=== PATIENT | female | born 1950 | race Caucasian/White ===

== ENCOUNTER → 2018-01-09 07:05 | Outpatient (CLI) | payer BC, SELFPAY ==
[2017-04-29 10:57] VITALS: BMI 37.4
--- NOTE | 2018-01-09 14:21 | PFTCOMP ---
COMPLETE PULMONARY FUNCTION TEST INTERPRETATION Brief HPI: Patient is a 67 year old female, currently under the care of Dr. Dunlap, who presents to [facility] for complete pulmonary function tests secondary to diagnosis of dyspnea on exertion. Respiratory therapist reports good effort and reproducible results. Interpretation: Forced expiration spirometry shows no large airways obstructive ventilatory defect with an FEV1 of 67% predicted. There is no significant bronchodilator response by ATS criteria. Spirograms are of good quality and plateau slowly, indicating slowly emptying areas of the lungs. The respiratory flow volume loop shows decreased expiratory flow rates at high lung volumes consistent with small airways obstruction. Lung volumes by body plethysmography show a decreased total lung capacity at 3.67 L, 72% predicted. All other lung volumes are reduced symmetrically. Diffusion capacity by carbon monoxide is decreased at 62% predicted. The airway resistance is elevated. No previous pulmonary function tests were available for review. Impression: Moderate restrictive ventilatory defect with a symmetric reduction diffusing capacity consistent with possible interstitial lung disease.
== END ==
PROVIDERS: Family Provider Family Medicine; PCP Family Medicine; Visit Provider Internal Medicine Critical Care Medicine
DX: R06.09 Other forms of dyspnea (principal)
CPT/HCPCS: 94060; 94726; 94729

== ENCOUNTER → 2018-01-12 08:58 | Outpatient (CLI) | payer BC, SELFPAY ==
[2017-04-29 10:57] VITALS: BMI 37.4
[2018-01-12 09:20] VITALS: PULSE 101; PULSE 102; PULSE 70; PULSE 72; PULSE 92; PULSE 97; O2SAT 89; O2SAT 90; O2SAT 92; O2SAT 93; O2SAT 94; O2SAT 97
--- NOTE | 2018-01-12 13:21 | WT_ITS ---
PSN 6 Minute Walk Test - 6 Minute Walk Test 6 Minute Walk Test: 6 Minute Walk Test PSN:6-Minute Walk Test Start: 01/12/18 09: 20 Freq: Status: Active Protocol: [id number].6MINW Document 01/12/18 09:20 SMOOTH (Rec: 01/12/18 09:22 SMOOTH [id number]) 6 Minute Walk Test Date Performed 01/12/18 Time Performed 09:00 Height 5 ft 5.5 in Weight: 215 lb Weight in Pounds 215.[address]: Noel Dunlap Assistive device used: None Pre-test Oxygen Delivery Method Room Air Pulse Ox (%) 94 Pulse Rate (60-100 beats/min) 70 Dyspnea Erick Scale (0-10) 0 Exertion Erick Scale (6-20) 6 1st minute Oxygen Delivery Method Room Air Pulse Ox (%) 93 Pulse Rate (60-100 beats/min) 92 2nd minute Oxygen Delivery Method Room Air Pulse Ox (%) 92 Pulse Rate (60-100 beats/min) 92 3rd minute Oxygen Delivery Method Room Air Pulse Ox (%) 90 Pulse Rate (60-100 beats/min) 97 4th minute Oxygen Delivery Method Room Air Pulse Ox (%) 89 Pulse Rate (60-100 beats/min) 101 H 5th minute Oxygen Delivery Method Room Air Pulse Ox (%) 89 Pulse Rate (60-100 beats/min) 101 H 6th minute Oxygen Delivery Method Room Air Pulse Ox (%) 89 Pulse Rate (60-100 beats/min) 102 H Dyspnea Erick Scale (0-10) 3 Exertion Erick Scale (6-20) 13 Post-test Oxygen Delivery Method Room Air Pulse Ox (%) 97 Pulse Rate (60-100 beats/min) 72 Full Laps Walked 21 Partial Lap, Number of Tiles Walked 21 Total Distance Walked (ft) 1260 - Interpretation Interpretation: The patient ambulated 1260 feet over the course of 6 minutes beginning on room air without assistive devices or breaks. Pretesting oxygen saturation was noted to be 94% on room air. With ambulation, the [place] oxygen saturation was 89%. This represents a significant exertional oxygen desaturation. - Recommendations Recommendations: There is no indication for the use of supplemental oxygen at this time. However , close interval follow-up is recommended, given the degree of oxygen desaturation noted during this study.
== END ==
PROVIDERS: Family Provider Family Medicine; PCP Family Medicine; Visit Provider Internal Medicine Critical Care Medicine
DX: R06.09 Other forms of dyspnea (principal)
CPT/HCPCS: 94618

== ENCOUNTER → 2018-02-05 07:53 | Outpatient (CLI) | payer BC, SELFPAY ==
[2017-04-29 10:57] VITALS: BMI 37.4
--- NOTE | 2018-02-05 07:54 | CT_ITS ---
STUDY: CT CHEST WITH CONTRAST REASON FOR EXAM: Female, 68 years old. LUNG DISEASE, DYSPNEA RADIATION DOSAGE (If Supplied By Facility): CTDIvol = ( 15.06 ) mGy, DLP = ( 557.35 ) mGycm TECHNIQUE: Transaxial imaging was performed following intravenous administration of 100 ml of Isovue 300 contrast material. Individualized dose optimization techniques were used for this CT. COMPARISON: None. FINDINGS: Multiple calcified nodules are seen in the left lung lower lobe largest measures approximately 8 mm are consistent with granulomas. There is no demonstrated pleural abnormality. Normal heart and pericardium. Normal mediastinum. Normal hilar regions. Normal enhanced pulmonary arteries. Normal aorta arch and descending thoracic aorta. There are multi-level degenerative changes of the thoracic spine. There is no demonstrated abnormality of the visualized upper abdomen. CT/Chest WITH Contrast IMPRESSION: There is no evidence of pneumonia or neoplasm. There is no evidence of interstitial fibrosis. Electronically Signed: Michelle Valencia MD at 9:53 EDT Tel , Service support ,
[2018-02-05 08:11] LABS: CREATININE FINGERSTICK < 0.6 mg/dL (0.55-1.02); EGFR FINGERSTICK > 60.0000 mL/min (>60)
== END ==
PROVIDERS: Family Provider Family Medicine; PCP Family Medicine; Referring Provider Nurse Practitioner Acute Care; Visit Provider Nurse Practitioner Acute Care
DX: Z01.812 Encounter for preprocedural laboratory examination (principal); J98.4 Other disorders of lung
CPT/HCPCS: 71260; Q9967

== ENCOUNTER 2018-03-31 12:05 | Observation (INO) | payer BC, SELFPAY ==
[2017-04-29 10:57] VITALS: BMI 37.4
[2018-03-31] VITALS (9 sets, daily range): BP systolic 155–171; BP diastolic 53–89; PULSE 61–81; RESP 16–20; TEMP 36.1–37.1; O2SAT 94–99; BMI 36.6; BMI 36.3
--- NOTE | 2018-03-31 12:17 | ED.RN ---
black, tar stools.
[2018-03-31] MEDS: 0.9% Normal Saline 1,000 ML 125 ML IV ×2 (12:35→20:02)
[2018-03-31 12:53] LABS: Absolute Lymphocyte Count 2.65 X10^3/ul (0.83-4.51); Absolute Neutrophil Count 5.2 X10^3/uL (2.0-7.7); Basophil# 0.07 X10^3/uL; Basophil% 0.8 % (0-1); Eosinophil# 0.28 X10^3/uL; Hematocrit 39.9 % (37-47); Hemoglobin 14.2 g/dl (12.0-15.0); Lymphocyte # 2.65 X10^3/ul (4.0); Lymphocyte % 28.8 % (19-41); Mean Corp Hgb Conc 35.6 g/gl (32-36); Mean Corpuscular Hgb 30.1 pg (27.0-32.0); Mean Corpuscular Volume 84.7 fL (81-99); Mean Platelet Vol. 11.6 fl (6.2-12.0); Monocyte# 0.93 X10^3/uL; Monocyte% 10.1 % (0-10); Neutrophil # 5.24 X10^3/uL (2.7-7.7); Neutrophil % 57.1 % (47-70); Platelet Count 189 K/mm3 (150-450); RBC Distribution Width CV 13.2 % (11.6-14.6); RBC Distribution Width SD 40.5 fl (35.1-43.9); Red Blood Count 4.71 M/mm3 (4.2-5.4); White Blood Count 9.2 K/mm3 (4.4-11.0)
[2018-03-31 12:54] LABS: POSITIVE COUNT NO; POSITIVE DIFFERENTIAL NO; POSITIVE MORPHOLOGY NO
[2018-03-31 13:03] LABS: Anion Gap 7 (5-15); BUN 16 mg/dL (7-18); BUN/Creat Ratio 26.7 RATIO (10-20); Chloride 106 mmol/L (98-107); EST Glomerular Filtration Rate 105 mL/min (>60); Est Glom Filt Rate - Afr Amer 127 mL/min (>60); Glucose 185 mg/dL (74-106); Sodium Level 139 mmol/L (136-145)
--- NOTE | 2018-03-31 13:22 | ED.RN ---
LACTIC 2.[address] LAB. DR DEL VALLE AWARE
--- NOTE | 2018-03-31 13:33 | PCM.HP.STD ---
Problem List (1) Restrictive lung disease Status: Chronic (2) Dyspnea on exertion Status: Chronic (3) Encounter for long-term current use of high risk medication Status: Chronic (4) Hypertension Status: Chronic Qualifiers: Hypertension type: essential hypertension Qualified Code(s): I10 - Essential (primary) hypertension (5) Hyperlipidemia Status: Chronic Qualifiers: Hyperlipidemia type: pure hypercholesterolemia Qualified Code(s): E78.00 - Pure hypercholesterolemia, unspecified; E78.0 - Pure hypercholesterolemia (6) Abnormal findings on diagnostic imaging of heart and coronary circulation Status: Chronic (7) Pericardial effusion (noninflammatory) Status: Chronic (8) Nonrheumatic mitral valve insufficiency Status: Chronic (9) Non-rheumatic tricuspid valve insufficiency Status: Chronic (10) Acoustic neuroma Status: Chronic (11) Benign hypertension Status: Chronic (12) Upper GI bleed Status: Acute History of Present Illness Date of Admission: 03/31/18 Chief Complaint: Abdominal pain for 1/2 weeks and melena one time The patient is a 68 year old F with history of diabetes mellitus type 2, hypertension and 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 She has abdominal cramps that is started in epigastrium and was diffuse moved to lower abdomen but was mild in intensity. She denies nausea/vomiting/hematemesis. She denies previous history of GI bleed. She takes baby aspirin. She had EGD and colonoscopy in the past but many years ago and does not remember the details but said it was okay. In ED, occult blood was positive. H&H 14.2/39.9. Platelet count 189,000. K4.0. BUN/creatinine 16/0.6. [] Past Medical History Past Medical History (Chronic Problems): Chronic Problems (Last Reviewed 03/05/18 @ 07:03 by Peyton Jara) Restrictive lung disease (Chronic) Dyspnea on exertion (Chronic) Encounter for long-term current use of high risk medication (Chronic) Hypertension (Chronic) Hyperlipidemia (Chronic) Abnormal findings on diagnostic imaging of heart and coronary circulation (Chronic) Pericardial effusion (noninflammatory) (Chronic) Nonrheumatic mitral valve insufficiency (Chronic) Non-rheumatic tricuspid valve insufficiency (Chronic) Acoustic neuroma (Chronic) Benign hypertension (Chronic) Medical History: Medical History (Last Reviewed 03/05/18 @ 07:03 by Peyton Jara) Dyspnea on exertion (Chronic) R06.09 Encounter for long-term current use of high risk medication (Chronic) Z79.899 Hypertension (Chronic) I10 Hyperlipidemia (Chronic) E78.5 Abnormal findings on diagnostic imaging of heart and coronary circulation (Chronic) R93.1 Pericardial effusion (noninflammatory) (Chronic) I31.3 Nonrheumatic mitral valve insufficiency (Chronic) I34.0 Non-rheumatic tricuspid valve insufficiency (Chronic) I36.1 Acoustic neuroma (Chronic) D33.3 Benign hypertension (Chronic) I10 Dyspnea on exertion R06.09 Hemoptysis R04.2 Skin cancer C44.90 Adjustment disorder with mixed anxiety and depressed mood F43.23 Aortic valve sclerosis I35.8 Bacterial sinusitis J32.9, B96.89 Esophageal reflux K21.9 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 Insomnia G47.00 Obesity E66.9 Primary osteoarthritis of left knee M17.12 Sleep apnea G47.30 Spinal stenosis of lumbar region M48.061 Type 2 diabetes mellitus E11.9 Allergies amlodipine Adverse Reaction (Severe, Verified 03/31/18 12:08) Unknown nickel Adverse Reaction (Severe, Verified 03/31/18 12:08) Unknown lisinopril Adverse Reaction (Mild, Verified 03/31/18 12:08) Other - cough Home Medications: Ambulatory Orders Medication Instructions Recorded armodafinil 250 mg tablet 250 mg PO QDAY tab 09/09/17 aspirin 81 mg tablet,delayed 81 mg PO QDAY 09/09/17 release colestipol 1 gram tablet 1 g PO QDAY tab 09/09/17 fluoxetine 20 mg capsule See Rx Instructions PO QDAY 09/09/17 gabapentin 100 mg capsule 100 mg PO TID cap 09/09/17 hydrochlorothiazide 25 mg tablet 25 mg PO QDAY 09/09/17 losartan 100 mg tablet 100 mg PO QDAY 09/09/17 orphenadrine citrate ER 100 mg 100 mg PO QDAY tab 09/09/17 tablet,extended release trazodone 50 mg tablet 50 mg PO QHS tab 09/09/17 atenolol 50 mg tablet 50 mg PO BID tab 09/12/17 cyclosporine 0.05 % eye drops in a 1 drp OPHTHALMIC Q12H 10/30/17 dropperette metformin 500 mg tablet 500 mg PO BID 10/30/17 naproxen 500 mg tablet 500 mg PO BID PRN 10/30/17 spironolactone 50 mg tablet 25 mg PO QDAY tab 10/30/17 Surgical History: Surgical History (Last Reviewed 03/05/18 @ 07:03 by Peyton Jara) H/O brain surgery Z98.890 acoustic neuroma 09/1998 H/O foot surgery Z98.890 Surgical History: neuroma Smoking Status: Former smoker Tobacco Use: Cigarettes - *Family History Paternal Family History: Family History (Last Reviewed 03/05/18 @ 07:03 by Peyton Jara) Brother CAD (coronary artery disease) Cancer Mother CVA (cerebral vascular accident) Father Alzheimers disease Grandmother Cancer Diabetes History Items: No pertinent history Review of Systems Constitutional: Denies: Chills, Fever, Weight Change HEENT: Reports: Difficulty Hearing - On right ear, chronic from a caustic neuroma. Denies: Head Aches, Sinus Congestion, Sinus Drainage Cardiovascular: Denies: Chest Pain, Palpitations Respiratory: Denies: Cough, Shortness of breath at rest, Sputum production Gastrointestinal: Reports: Abdominal Pain, Melena. Denies: Constipation, Nausea, Vomiting Genitourinary: Denies: Dysuria, Frequency, Hematuria Musculoskeletal: Denies: Joint Pain, Joint Tenderness Skin: Denies: Rash, Wounds Neurological: Reports: Balance problems. Denies: Focal weakness, Numbness, Tingling Psychiatric: Denies: Anxiety, Depression, Homicidal Ideations, Suicidal Ideations Hematologic/ Lymphatic: Denies: Easy Bruising, Easy Bleeding VTE Information - Inpt Only VTE Present on Admission: No VTE Mechan Device Prophylaxis: SCD's Reason prophylaxis not ordered:: Medical Contraindication - Active GI bleed. Patient Problems: Active and Suspected Problems (Last Reviewed 03/05/18 @ 07:03 by Peyton Jara) Upper GI bleed (Acute) - Physical Exam General: Alert, Oriented x3, Cooperative HEENT: Atraumatic, PERRLA, EOMI, Normocephalic, - - Hearing impairment on right ear Neck: Supple, No JVD, Negative Carotid Bruits Lungs: Clear to auscultation, Normal air movement, No rhonchi, No wheeze, No rales Cardiovascular: Regular rate, Regular Rhythm, Normal S1, Normal S2, No murmurs Abdomen: Bowel Sounds Present, Soft, Non Tender, Non-Distended Extremities: Capillary Refill Less than 3 Seconds, Edema Skin: No rashes, No breakdown Musculoskeletal: No Tenderness to Palpation of Joints or Extremities, Arthritic Changes Neurological: Cranial nerves II-XII grossly intact, Deep Tendon Reflexes 2+/4 and Symmetrical, Neuro grossly intact, Motor Exam 5/5 strength throughout Psych/Mental Status: Normal Affect, Appropriate Vital Signs Temp Pulse Resp BP Pulse Ox 96.9 F L 66 16 171/67 H 99 03/31/18 12:06 03/31/18 12:38 03/31/18 12:06 03/31/18 12:38 03/31/18 12:06 Weight: 220 lb Body Mass Index (BMI) 36.6 Microbiology Past 72 Hours 03/31/18 12:25 Stool Occult Blood (HOWARD) - Final Stool Occult Blood Positive Laboratory Tests Past 24 Hrs 03/31/18 03/31/18 03/31/18 12:30 12:30 12:30 WBC 9.2 RBC 4.71 Hgb 14.2 Hct 39.9 MCV 84.7 MCH 30.1 MCHC 35.6 RDW 13.2 RDW Differential 40.5 Plt Count 189 MPV 11.6 Immature Gran % (Auto) 0.200 Neut % (Auto) 57.1 Lymph % (Auto) 28.8 [place] % (Auto) 10.1 H Eos % (Auto) 3.0 Baso % (Auto) 0.8 Absolute Neuts (auto) 5.2 Absolute Lymphs (auto) 2.65 Total Counted Not Reportable Sodium 139 Potassium 4.0 Chloride 106 Carbon Dioxide 26.0 Anion Gap 7 BUN 16 Creatinine 0.60 Estim Creat Clear Calc 47.10 Est GFR (MDRD) Af Amer 127 Est GFR (MDRD) Non-Af 105 BUN/Creatinine Ratio 26.7 H Glucose 185 H Lactic Acid 2.0 Calcium 9.0 Blood Type Antibody Screen 03/31/18 12:30 WBC RBC Hgb Hct MCV MCH MCHC RDW RDW Differential Plt Count MPV Immature Gran % (Auto) Neut % (Auto) Lymph % (Auto) [place] % (Auto) Eos % (Auto) Baso % (Auto) Absolute Neuts (auto) Absolute Lymphs (auto) Total Counted Sodium Potassium Chloride Carbon Dioxide Anion Gap BUN Creatinine Estim Creat Clear Calc Est GFR (MDRD) Af Amer Est GFR (MDRD) Non-Af BUN/Creatinine Ratio Glucose Lactic Acid Calcium Blood Type O POSITIVE Antibody Screen NEGATIVE Assessment/Plan All Active Problems (Last Reviewed 03/05/18 @ 07:03 by Peyton Jara) Upper GI bleed (Acute) The patient is a 68 year old F with history of diabetes mellitus type 2, hypertension and 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 She has abdominal cramps that is started in epigastrium and was diffuse moved to lower abdomen but was mild in intensity. She denies nausea/vomiting/hematemesis. She denies previous history of GI bleed. She takes baby aspirin and on naproxen and orphenadrine. She had EGD and colonoscopy in the past but many years ago and does not remember the details but said it was okay. In ED, occult blood was positive. H&H 14.2/39.9. Platelet count 189,000. K4.0. BUN/creatinine 16/0.6. 1. Upper GI bleed, exact etiology unclear but possible from aspirin/NSAID/PUD: The patient is being admitted to PCU on traffic monitor specialist. IV fluid normal saline. On Protonix drip. H&H monitoring every 6 hourly. Clear liquid diet. Discussed with surgeon, Dr. Miller and he agreed to do EGD. Currently, patient is hemodynamically stable. Lactic acid 2.0. BP 165/77. Orthostatic vitals are negative. Previous H&H in November 2016 13.5/38.6. Group and crossmatch done. If hemoglobin drops less than 8 g%, transfuse 2 units of PRBCs. Hold diuretics spironolactone and HCTZ. 2. Hypertension, dyslipidemia: Home medication continued. Hold antihypertensive medication if systolic blood pressure less than 140 mmHg. Dose of losartan is decreased. 3. Restrictive lung disease. Obstructive sleep apnea on CPAP: Continue home settings of CPAP. 4. Acoustic neuroma: Continue gabapentin. Hold armodafinil, dose of orphenadrine decreased. 5. Diabetes mellitus type 2: On Accu-Chek before meals and at bedtime and cover with Humalog sliding scale. Glucose and BMP 185. A1c tomorrow a.m. DVT prophylaxis: Bilateral SCDs. Pharmacological prophylaxis is contraindicated. Home medication reconciliation done. Microbiology Past 72 Hours 03/31/18 12:25 Stool Stool Occult Blood (HOWARD) - Final Occult Blood Positive Laboratory Results 03/31/18 12:30: WBC 9.2, RBC 4.71, Hgb 14.2, Hct 39.9, MCV 84.7, MCH 30.1, MCHC 35.6, RDW 13.2, RDW Differential 40.5, Plt Count 189, MPV 11.6, Immature Gran % (Auto) 0.200, Neut % (Auto) 57.1, Lymph % (Auto) 28.8, [place] % (Auto) 10.1 H, Eos % (Auto) 3.0, Baso % (Auto) 0.8, Absolute Neuts (auto) 5.2, Absolute Lymphs (auto) 2.65, Total Counted Not Reportable 03/31/18 12:30: Sodium 139, Potassium 4.0, Chloride 106, Carbon Dioxide 26.0, Anion Gap 7, BUN 16, Creatinine 0.60, Estim Creat Clear Calc 47.10, Est GFR (MDRD) Af Amer 127, Est GFR (MDRD) Non-Af 105, BUN/Creatinine Ratio 26.7 H, Glucose 185 H, Calcium 9.0 03/31/18 12:30: Lactic Acid 2.0 03/31/18 12:30: Blood Type O POSITIVE, Antibody Screen NEGATIVE Code Visit Inpatient E&M: 30209 Init Hosp L3
--- NOTE | 2018-03-31 13:38 | ED.VISSUMM ---
- ER Visit Summary Date of Service: 03/31/18 Chief Complaint: [Black stool] History of Present Illness: The patient is a 68 F [presents to the emergency department with complaint of black stool that she noticed this morning. Patient states that she is had intermittent abdominal discomfort for the last week and a half. Patient also feeling fatigued and lacks energy. Patient states that she has been expensing upper abdominal discomfort intermittently typically after eating. Patient does have a history of gastroesophageal reflux disease and normally sleeps with the head of the bed elevated. Patient does not take any medication for reflux. Patient has had prior EGD but it was many years ago she cannot remember how many years ago. Patient is not on any blood thinners. Patient denies any fevers. She has not taken any Pepto-Bismol. She does not take iron.] Physical Examination: [HEENT-PERRLA, EOMI. Cranial nerves II through XII grossly intact. TMs clear. Mucous membranes moist. No adenopathy. Cardiovascular-regular rate and rhythm without murmur or ectopy Lungs-clear to auscultation, chest wall stable without crepitus or subcu emphysema Abdomen-normoactive bowel sounds, soft, nontender, no rebound or rigidity, no peritoneal signs. Rectal exam-no external lesions noted. No masses palpated in the rectal vault. There was blackish stool noted on exam that was Hemoccult positive Extremities-intact ?4, normal range of motion, normal pulses, atraumatic] Test Results: [Static vital signs were negative. CBC with differential obtained on arrival showed a white blood cell count of 9.2, hemoglobin 14, hematocrit 40, platelets 189. Chemistries unremarkable. BUN was 16 and creatinine 0.60. Lactate was 2.0.] Emergency Department Course and Treatment: [Patient was started on a Protonix drip.] Treatment Plan: [Admit] Disposition: [Admit] Impression: [Upper GI bleed] This note was generated with [employer] dictation software. It may contain incorrect words, spelling, and punctuation that were not noted in review of the chart prior to signing ED Disposition - Plan for ED Patient: Chief Complaint: GI Bleed Referrals: Rhett Reece MD [Primary Care Provider] -
--- NOTE | 2018-03-31 13:41 | ED.DCSUM_ITS ---
- ER Visit Summary Date of Service: 03/31/18 Chief Complaint: [Black stool] History of Present Illness: The patient is a 68 F [presents to the emergency department with complaint of black stool that she noticed this morning. Patient states that she is had intermittent abdominal discomfort for the last week and a half. Patient also feeling fatigued and lacks energy. Patient states that she has been expensing upper abdominal discomfort intermittently typically after eating. Patient does have a history of gastroesophageal reflux disease and normally sleeps with the head of the bed elevated. Patient does not take any medication for reflux. Patient has had prior EGD but it was many years ago she cannot remember how many years ago. Patient is not on any blood thinners. Patient denies any fevers. She has not taken any Pepto-Bismol. She does not take iron.] Physical Examination: [HEENT-PERRLA, EOMI. Cranial nerves II through XII grossly intact. TMs clear. Mucous membranes moist. No adenopathy. Cardiovascular-regular rate and rhythm without murmur or ectopy Lungs-clear to auscultation, chest wall stable without crepitus or subcu emphysema Abdomen-normoactive bowel sounds, soft, nontender, no rebound or rigidity, no peritoneal signs. Rectal exam-no external lesions noted. No masses palpated in the rectal vault. There was blackish stool noted on exam that was Hemoccult positive Extremities-intact ?4, normal range of motion, normal pulses, atraumatic] Test Results: [Static vital signs were negative. CBC with differential obtained on arrival showed a white blood cell count of 9.2, hemoglobin 14, hematocrit 40, platelets 189. Chemistries unremarkable. BUN was 16 and creatinine 0.60. Lactate was 2.0.] Emergency Department Course and Treatment: [Patient was started on a Protonix dr ip.] Treatment Plan: [Admit] Disposition: [Admit] Impression: [Upper GI bleed] This note was generated with [employer] dictation software. It may contain incorrect words, spelling, and punctuation that were not noted in review of the chart prior to signing ED Disposition - Plan for ED Patient: Chief Complaint: GI Bleed Referrals: Rhett Reece MD [Primary Care Provider] -
--- NOTE | 2018-03-31 15:15 | PCM.CONS.GEN ---
Problem List (1) Upper GI bleed Status: Acute Reason for Consult Date of Consultation: 03/31/18 Reason for Consultation: Upper GI bleed. Melena. History of Present Illness: The patient is a 68 year old F who presents with a 1 1/2 week history of cramping/burning upper and lower abdominal pain. She noted her stool has been loose cow syed and then she had a large melanotic stool today. Patient notes a history of irritable bowel syndrome. She notes she controls her symptoms through diet and does not take any medications. She denies family history of colon cancer. She denies nausea, vomiting, fatigue, shortness of breath. She notes taking Naproxen at least daily for approximately 10 years for fibromyalgia. Patient notes her last colonoscopy and EGD was with Dr. Cummings approximately 4-5 years ago. She denies having any colon polyps. Patient notes she was following with a slot host for shortness of breath and fatigue. She denies history of CHF, myocardial infarction, stroke and blood clots. Patient denies previous abdominal surgeries. Patient is maintained on a daily aspirin. Fecal occult blood test was positive. Past Medical History Past Medical History (Chronic Problems): Chronic Problems (Last Reviewed 03/05/18 @ 07:03 by Peyton Jara) Restrictive lung disease (Chronic) Dyspnea on exertion (Chronic) Encounter for long-term current use of high risk medication (Chronic) Hypertension (Chronic) Hyperlipidemia (Chronic) Abnormal findings on diagnostic imaging of heart and coronary circulation (Chronic) Pericardial effusion (noninflammatory) (Chronic) Nonrheumatic mitral valve insufficiency (Chronic) Non-rheumatic tricuspid valve insufficiency (Chronic) Acoustic neuroma (Chronic) Benign hypertension (Chronic) Medical History: Medical History (Last Reviewed 03/05/18 @ 07:03 by Peyton Jara) Dyspnea on exertion (Chronic) R06.09 Encounter for long-term current use of high risk medication (Chronic) Z79.899 Hypertension (Chronic) I10 Hyperlipidemia (Chronic) E78.5 Abnormal findings on diagnostic imaging of heart and coronary circulation (Chronic) R93.1 Pericardial effusion (noninflammatory) (Chronic) I31.3 Nonrheumatic mitral valve insufficiency (Chronic) I34.0 Non-rheumatic tricuspid valve insufficiency (Chronic) I36.1 Acoustic neuroma (Chronic) D33.3 Benign hypertension (Chronic) I10 Dyspnea on exertion R06.09 Hemoptysis R04.2 Skin cancer C44.90 Adjustment disorder with mixed anxiety and depressed mood F43.23 Aortic valve sclerosis I35.8 Bacterial sinusitis J32.9, B96.89 Esophageal reflux K21.9 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 Insomnia G47.00 Obesity E66.9 Primary osteoarthritis of left knee M17.12 Sleep apnea G47.30 Spinal stenosis of lumbar region M48.061 Type 2 diabetes mellitus E11.9 Allergies amlodipine Adverse Reaction (Severe, Verified 03/31/18 12:08) Unknown nickel Adverse Reaction (Severe, Verified 03/31/18 12:08) Unknown lisinopril Adverse Reaction (Mild, Verified 03/31/18 12:08) Other - cough Home Medications: Ambulatory Orders Medication Instructions Recorded armodafinil 250 mg tablet 250 mg PO DAILY PRN tab 09/09/17 aspirin 81 mg tablet,delayed 81 mg PO DAILY 09/09/17 release colestipol 1 gram tablet 1 g PO DAILY tab 09/09/17 fluoxetine 20 mg capsule 80 mg PO QHS 09/09/17 gabapentin 100 mg capsule 100 mg PO TID cap 09/09/17 hydrochlorothiazide 25 mg tablet 25 mg PO DAILY 09/09/17 losartan 100 mg tablet 100 mg PO DAILY 09/09/17 orphenadrine citrate ER 100 mg 100 mg PO QDAY PRN tab 09/09/17 tablet,extended release trazodone 50 mg tablet 50 mg PO QHS tab 09/09/17 atenolol 50 mg tablet 50 mg PO BID tab 09/12/17 cyclosporine 0.05 % eye drops in a 1 drp OPHTHALMIC Q12H PRN 10/30/17 dropperette metformin 500 mg tablet 500 mg PO BIDCM 10/30/17 naproxen 500 mg tablet 500 mg PO BIDCM PRN 10/30/17 spironolactone 50 mg tablet 25 mg PO DAILY tab 10/30/17 Multivitamins,Therapeutic 1 tablet PO DAILY 03/31/18 [Multivitamin] Penciclovir [Denavir] 1 applicatio TP BID PRN 03/31/18 Surgical History: Surgical History (Last Reviewed 03/05/18 @ 07:03 by Peyton Jara) H/O brain surgery Z98.890 acoustic neuroma 09/1998 H/O foot surgery Z98.890 Surgical History: no surgical history Psychiatric History: No pertinent psych hx 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 Lives: Alone Smoking Status: Former smoker Tobacco Use: Cigarettes - *Family History Paternal Family History: Family History (Last Reviewed 03/05/18 @ 07:03 by Peyton Jara) Brother CAD (coronary artery disease) Cancer Mother CVA (cerebral vascular accident) Father Alzheimers disease Grandmother Cancer Diabetes History Items: No pertinent history Review of Systems Constitutional: Denies: Weight Change HEENT: Denies: Head Aches, Sinus Congestion, Sinus Drainage Cardiovascular: Denies: Chest Pain, Palpitations Respiratory: Denies: Cough, Shortness of breath at rest, Sputum production Gastrointestinal: Reports: Abdominal Pain, Melena. Denies: Nausea, Vomiting Genitourinary: Denies: Dysuria Musculoskeletal: Denies: Joint Pain, Joint Tenderness Skin: Denies: Rash, Wounds Neurological: Denies: Numbness, Tingling, Focal weakness Psychiatric: Denies: Anxiety, Depression, Homicidal Ideations, Suicidal Ideations Hematologic/ Lymphatic: Denies: Easy Bruising, Easy Bleeding Patient Problems: Active and Suspected Problems (Last Reviewed 03/05/18 @ 07:03 by Peyton Jara) Upper GI bleed (Acute) - Physical Exam General: Alert, Oriented x3, Cooperative HEENT: Atraumatic, PERRLA, EOMI, Normocephalic Neck: Supple, No JVD, Negative Carotid Bruits Lungs: Clear to auscultation, Normal air movement Cardiovascular: Regular rate, No murmurs Abdomen: Soft, Non Tender, Distended, Obese Extremities: No edema, Capillary Refill Less than 3 Seconds Skin: No rashes, No breakdown Musculoskeletal: No Tenderness to Palpation of Joints or Extremities Neurological: Neuro grossly intact Psych/Mental Status: Normal Affect, Appropriate Vital Signs Temp Pulse Resp BP Pulse Ox 96.9 F L 74 18 155/69 H 99 03/31/18 12:06 03/31/18 14:29 03/31/18 14:29 03/31/18 14:29 03/31/18 14:29 Weight: 220 lb Body Mass Index (BMI) 36.6 Microbiology Past 72 Hours 03/31/18 12:25 Stool Occult Blood (HOWARD) - Final Stool Occult Blood Positive Laboratory Tests Past 24 Hrs 03/31/18 03/31/18 03/31/18 12:30 12:30 12:30 WBC 9.2 RBC 4.71 Hgb 14.2 Hct 39.9 MCV 84.7 MCH 30.1 MCHC 35.6 RDW 13.2 RDW Differential 40.5 Plt Count 189 MPV 11.6 Immature Gran % (Auto) 0.200 Neut % (Auto) 57.1 Lymph % (Auto) 28.8 [place] % (Auto) 10.1 H Eos % (Auto) 3.0 Baso % (Auto) 0.8 Absolute Neuts (auto) 5.2 Absolute Lymphs (auto) 2.65 Total Counted Not Reportable Sodium 139 Potassium 4.0 Chloride 106 Carbon Dioxide 26.0 Anion Gap 7 BUN 16 Creatinine 0.60 Estim Creat Clear Calc 47.10 Est GFR (MDRD) Af Amer 127 Est GFR (MDRD) Non-Af 105 BUN/Creatinine Ratio 26.7 H Glucose 185 H Lactic Acid 2.0 Calcium 9.0 Blood Type Antibody Screen 03/31/18 12:30 WBC RBC Hgb Hct MCV MCH MCHC RDW RDW Differential Plt Count MPV Immature Gran % (Auto) Neut % (Auto) Lymph % (Auto) [place] % (Auto) Eos % (Auto) Baso % (Auto) Absolute Neuts (auto) Absolute Lymphs (auto) Total Counted Sodium Potassium Chloride Carbon Dioxide Anion Gap BUN Creatinine Estim Creat Clear Calc Est GFR (MDRD) Af Amer Est GFR (MDRD) Non-Af BUN/Creatinine Ratio Glucose Lactic Acid Calcium Blood Type O POSITIVE Antibody Screen NEGATIVE Assessment/Plan All Active Problems (Last Reviewed 03/05/18 @ 07:03 by Peyton Jara) Upper GI bleed (Acute) I have been consulted in conjunction with Dr. Sanchez. Impression: Melena. Fecal occult positive. Abdominal pain. Plan: Patient was discussed with Dr. Miller. Dr. Miller will plan to perform an upper endoscopy with MAC tomorrow. Procedure details, risks and benefits have been explained to the patient and her daughter. Patient has had the opportunity to ask and have questions answered. NPO at midnight. Thank you for allowing us to participate in this patient's care. My recommendations will be available via electronic medical records. Code Visit Office Visits / Consults: [id number] IP Consult L3
--- NOTE | 2018-03-31 15:26 | CON.PCM_ITS ---
Problem List (1) Upper GI bleed Status: Acute Reason for Consult Date of Consultation: 03/31/18 Reason for Consultation: Upper GI bleed. Melena. History of Present Illness: The patient is a 68 year old F who presents with a 1 1/2 week history of cramping/burning upper and lower abdominal pain. She noted her stool has been loose cow syed and then she had a large melanotic stool today. Patient notes a history of irritable bowel syndrome. She notes she controls her symptoms through diet and does not take any medications. She denies family history of colon cancer. She denies nausea, vomiting, fatigue, shortness of breath. She notes taking Naproxen at least daily for approximately 10 years for fibromyalgia. Patient notes her last colonoscopy and EGD was with Dr. Cummings approximately 4-5 years ago. She denies having any colon polyps. Patient notes she was following with a strainer cleaner for shortness of breath and fatigue. She denies history of CHF, myocardial infarction, stroke and blood clots. Patient denies previous a bdominal surgeries. Patient is maintained on a daily aspirin. Fecal occult blood test was positive. Past Medical History Past Medical History (Chronic Problems): Chronic Problems (Last Reviewed 03/05/18 @ 07:03 by Peyton Jara) Restrictive lung disease (Chronic) Dyspnea on exertion (Chronic) Encounter for long-term current use of high risk medication (Chronic) Hypertension (Chronic) Hyperlipidemia (Chronic) Abnormal findings on diagnostic imaging of heart and coronary circulation (Chronic) Pericardial effusion (noninflammatory) (Chronic) Nonrheumatic mitral valve insufficiency (Chronic) Non-rheumatic tricuspid valve insufficiency (Chronic) Acoustic neuroma (Chronic) Benign hypertension (Chronic) Medical History: Medical History (Last Reviewed 03/05/18 @ 07:03 by Peyton Jara) Dyspnea on exertion (Chronic) R06.09 Encounter for long-term current use of high risk medication (Chronic) Z79.899 Hypertension (Chronic) I10 Hyperlipidemia (Chronic) E78.5 Abnormal findings on diagnostic imaging of heart and coronary circulation (Chronic) R93.1 Pericardial effusion (noninflammatory) (Chronic) I31.3 Nonrheumatic mitral valve insufficiency (Chronic) I34.0 Non-rheumatic tricuspid valve insufficiency (Chronic) I36.1 Acoustic neuroma (Chronic) D33.3 Benign hypertension (Chronic) I10 Dyspnea on exertion R06.09 Hemoptysis R04.2 Skin cancer C44.90 Adjustment disorder with mixed anxiety and depressed mood F43.23 Aortic valve sclerosis I35.8 Bacterial sinusitis J32.9, B96.89 Esophageal reflux K21.9 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 Insomnia G47.00 Obesity E66.9 Primary osteoarthritis of left knee M17.12 Sleep apnea G47.30 Spinal stenosis of lumbar region M48.061 Type 2 diabetes mellitus E11.9 Allergies amlodipine Adverse Reaction (Severe, Verified 03/31/18 12:08) Unknown nickel Adverse Reaction (Severe, Verified 03/31/18 12:08) Unknown lisinopril Adverse Reaction (Mild, Verified 03/31/18 12:08) Other - cough Home Medications: Ambulatory Orders Medication Instructions Recorded armodafinil 250 mg tablet 250 mg PO DAILY PRN tab 09/09/17 aspirin 81 mg tablet,delayed 81 mg PO DAILY 09/09/17 release colestipol 1 gram tablet 1 g PO DAILY tab 09/09/17 fluoxetine 20 mg capsule 80 mg PO QHS 09/09/17 gabapentin 100 mg capsule 100 mg PO TID cap 09/09/17 hydrochlorothiazide 25 mg tablet 25 mg PO DAILY 09/09/17 losartan 100 mg tablet 100 mg PO DAILY 09/09/17 orphenadrine citrate ER 100 mg 100 mg PO QDAY PRN tab 09/09/17 tablet,extended release trazodone 50 mg tablet 50 mg PO QHS tab 09/09/17 atenolol 50 mg tablet 50 mg PO BID tab 09/12/17 cyclosporine 0.05 % eye drops in a 1 drp OPHTHALMIC Q12H PRN 10/30/17 dropperette metformin 500 mg tablet 500 mg PO BIDCM 10/30/17 naproxen 500 mg tablet 500 mg PO BIDCM PRN 10/30/17 spironolactone 50 mg tablet 25 mg PO DAILY tab 10/30/17 Multivitamins,Therapeutic 1 tablet PO DAILY 03/31/18 [Multivitamin] Penciclovir [Denavir] 1 applicatio TP BID PRN 03/31/18 Surgical History: Surgical History (Last Reviewed 03/05/18 @ 07:03 by Peyton Jara) H/O brain surgery Z98.890 acoustic neuroma 09/1998 H/O foot surgery Z98.890 Surgical History: no surgical history Psychiatric History: No pertinent psych hx 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 Lives: Alone Smoking Status: Former smoker Tobacco Use: Cigarettes - *Family History Paternal Family History: Family History (Last Reviewed 03/05/18 @ 07:03 by Peyton Jara) Brother CAD (coronary artery disease) Cancer Mother CVA (cerebral vascular accident) Father Alzheimers disease Grandmother Cancer Diabetes History Items: No pertinent history Review of Systems Constitutional: Denies: Weight Change HEENT: Denies: Head Aches, Sinus Congestion, Sinus Drainage Cardiovascular: Denies: Chest Pain, Palpitations Respiratory: Denies: Cough, Shortness of breath at rest, Sputum production Gastrointestinal: Reports: Abdominal Pain, Melena. Denies: Nausea, Vomiting Genitourinary: Denies: Dysuria Musculoskeletal: Denies: Joint Pain, Joint Tenderness Skin: Denies: Rash, Wounds Neurological: Denies: Numbness, Tingling, Focal weakness Psychiatric: Denies: Anxiety, Depression, Homicidal Ideations, Suicidal Ideations Hematologic/ Lymphatic: Denies: Easy Bruising, Easy Bleeding Patient Problems: Active and Suspected Problems (Last Reviewed 03/05/18 @ 07:03 by Peyton Jara) Upper GI bleed (Acute) - Physical Exam General: Alert, Oriented x3, Cooperative HEENT: Atraumatic, PERRLA, EOMI, Normocephalic Neck: Supple, No JVD, Negative Carotid Bruits Lungs: Clear to auscultation, Normal air movement Cardiovascular: Regular rate, No murmurs Abdomen: Soft, Non Tender, Distended, Obese Extremities: No edema, Capillary Refill Less than 3 Seconds Skin: No rashes, No breakdown Musculoskeletal: No Tenderness to Palpation of Joints or Extremities Neurological: Neuro grossly intact Psych/Mental Status: Normal Affect, Appropriate Vital Signs Temp Pulse Resp BP Pulse Ox 96.9 F L 74 18 155/69 H 99 03/31/18 12:06 03/31/18 14:29 03/31/18 14:29 03/31/18 14:29 03/31/18 14:29 Weight: 220 lb Body Mass Index (BMI) 36.6 Microbiology Past 72 Hours 03/31/18 12:25 Stool Occult Blood (HOWARD) - Final Stool Occult Blood Positive Laboratory Tests Past 24 Hrs 03/31/18 03/31/18 03/31/18 12:30 12:30 12:30 WBC 9.2 RBC 4.71 Hgb 14.2 Hct 39.9 MCV 84.7 MCH 30.1 MCHC 35.6 RDW 13.2 RDW Differential 40.5 Plt Count 189 MPV 11.6 Immature Gran % (Auto) 0.200 Neut % (Auto) 57.1 Lymph % (Auto) 28.8 [place] % (Auto) 10.1 H Eos % (Auto) 3.0 Baso % (Auto) 0.8 Absolute Neuts (auto) 5.2 Absolute Lymphs (auto) 2.65 Total Counted Not Reportable Sodium 139 Potassium 4.0 Chloride 106 Carbon Dioxide 26.0 Anion Gap 7 BUN 16 Creatinine 0.60 Estim Creat Clear Calc 47.10 Est GFR (MDRD) Af Amer 127 Est GFR (MDRD) Non-Af 105 BUN/Creatinine Ratio 26.7 H Glucose 185 H Lactic Acid 2.0 Calcium 9.0 Blood Type Antibody Screen 03/31/18 12:30 WBC RBC Hgb Hct MCV MCH MCHC RDW RDW Differential Plt Count MPV Immature Gran % (Auto) Neut % (Auto) Lymph % (Auto) [place] % (Auto) Eos % (Auto) Baso % (Auto) Absolute Neuts (auto) Absolute Lymphs (auto) Total Counted Sodium Potassium Chloride Carbon Dioxide Anion Gap BUN Creatinine Estim Creat Clear Calc Est GFR (MDRD) Af Amer Est GFR (MDRD) Non-Af BUN/Creatinine Ratio Glucose Lactic Acid Calcium Blood Type O POSITIVE Antibody Screen NEGATIVE Assessment/Plan All Active Problems (Last Reviewed 03/05/18 @ 07:03 by Peyton Jara) Upper GI bleed (Acute) I have been consulted in conjunction with Dr. Sanchez. Impression: Melena. Fecal occult positive. Abdominal pain. Plan: Patient was discussed with Dr. Miller. Dr. Miller will plan to perform an upper endoscopy with MAC tomorrow. Procedure details, risks and benefits have been explained to the patient and her daughter. Patient has had the opportunity to ask and have questions answered. NPO at midnight. Thank you for allowing us to participate in this patient's care. My recommendations will be available via electronic medical records. Code Visit Office Visits / Consults: [id number] IP Consult L3
--- NOTE | 2018-03-31 15:37 | EKG12_ITS ---
Test Reason : Blood Pressure : / mmHG Vent. Rate : 071 BPM Atrial Rate : 071 BPM P-R Int : 182 ms QRS Dur : 092 ms QT Int : 420 ms P-R-T Axes : 041 -13 024 degrees QTc Int : 456 ms Normal sinus rhythm Possible Left atrial enlargement Borderline ECG When compared with ECG of 28-JUN-2011 21:34, No significant change was found Confirmed by JODIE WALKER, ALDO ([id number]), general expeditor FREDRICK VORA ([id number]) on 04/03/2018 2:06:32 PM Referred By: Adair Tsang Confirmed By:ALDO FELICIANO MD
[2018-03-31 15:56] LABS: Bedside Glucose 120 mg/dL (70-110)
[2018-03-31 15:58] LABS: Partial Thromboplast Time 29.6 Seconds (24.1-36.2); Prothrombin Time (Protime)PT. 12.9 SECONDS (11.7-14.9)
[2018-03-31 16:01] LABS: AST(SGOT) 32 U/L (15-37); Alanine Aminotransfer ALT/SGPT 33 U/L (13-56); Albumin, Serum 3.5 g/dL (3.2-5.0); Alkaline Phosphatase 117 U/L (45-117); Bilirubin, Direct 0.12 mg/dL (0.00-0.30); Globulin 3.3 g/dL (2.2-4.2); Protein, Total 6.8 g/dL (6.4-8.2)
[2018-03-31 16:43] LABS: Reflex Lactate? Y
[2018-03-31] MEDS: Gabapentin 100 MG Capsule PO (17:53)
--- NOTE | 2018-03-31 18:12 | NURSING ---
DR SHOEMAKER MADE AWARE OF PROTONIX INFUSION 80MG BEING INFUSED IN ABOUT 2HRS FROM ER. NEW ORDERS.
[2018-03-31 18:30] LABS: Lactic Acid 0.9 mmol/L (0.4-2.0)
[2018-03-31 18:41] LABS: Hematocrit 38.8 % (37-47); Hemoglobin 13.9 g/dl (12.0-15.0)
[2018-03-31] MEDS: Atenolol 50 MG Tablet PO (21:16)
[2018-03-31] MEDS: traZODone 50 MG Tablet PO (21:16)
[2018-03-31] MEDS: Insulin Lispro 100 UNIT/ML INSULN.PEN SQ (21:25)
[2018-03-31 22:25] LABS: Bedside Glucose 177 mg/dL (70-110)
[2018-04-01] VITALS (12 sets, daily range): BP systolic 143–170; BP diastolic 48–77; PULSE 61–80; RESP 16–20; TEMP 36.3–37.1; O2SAT 93–96; BMI 36.3
[2018-04-01 01:45] LABS: Hematocrit 36.2 % (37-47); Hemoglobin 12.5 g/dl (12.0-15.0)
[2018-04-01] MEDS: 0.9% Normal Saline 1,000 ML 125 ML IV ×2 (03:45→15:01)
[2018-04-01 07:01] LABS: Bedside Glucose 187 mg/dL (70-110)
[2018-04-01 07:08] LABS: Absolute Lymphocyte Count 2.16 X10^3/ul (0.83-4.51); Absolute Neutrophil Count 3.4 X10^3/uL (2.0-7.7); Basophil# 0.05 X10^3/uL; Basophil% 0.8 % (0-1); Eosinophil# 0.26 X10^3/uL; Hematocrit 38.5 % (37-47); Hemoglobin 13.3 g/dl (12.0-15.0); Lymphocyte # 2.16 X10^3/ul (4.0); Lymphocyte % 33.3 % (19-41); Mean Corp Hgb Conc 34.5 g/gl (32-36); Mean Corpuscular Hgb 29.8 pg (27.0-32.0); Mean Corpuscular Volume 86.3 fL (81-99); Mean Platelet Vol. 11.8 fl (6.2-12.0); Monocyte# 0.58 X10^3/uL; Neutrophil # 3.41 X10^3/uL (2.7-7.7); Neutrophil % 52.6 % (47-70); Platelet Count 167 K/mm3 (150-450); RBC Distribution Width CV 13.3 % (11.6-14.6); RBC Distribution Width SD 41.3 fl (35.1-43.9); Red Blood Count 4.46 M/mm3 (4.2-5.4); White Blood Count 6.5 K/mm3 (4.4-11.0)
[2018-04-01 07:15] LABS: POSITIVE COUNT NO; POSITIVE DIFFERENTIAL NO; POSITIVE MORPHOLOGY NO
[2018-04-01 07:17] LABS: Anion Gap 5 (5-15); BUN 12 mg/dL (7-18); BUN/Creat Ratio 25.5 RATIO (10-20); Calcium,Total 8.3 mg/dL (8.5-10.1); Chloride 110 mmol/L (98-107); Creatinine, Serum 0.47 mg/dL (0.55-1.02); EST Glomerular Filtration Rate 139 mL/min (>60); Est Glom Filt Rate - Afr Amer 168 mL/min (>60); Glucose 183 mg/dL (74-106); Potassium 4.1 mmol/L (3.5-5.1); Sodium Level 141 mmol/L (136-145)
[2018-04-01] MEDS: FLUoxetine 20 MG Capsule 80 MG PO (09:21)
[2018-04-01] MEDS: Atenolol 50 MG Tablet PO (09:21)
[2018-04-01] MEDS: Losartan Potassium 50 MG Tablet PO (09:21)
[2018-04-01 10:51] LABS: Bedside Glucose 156 mg/dL (70-110)
--- NOTE | 2018-04-01 10:59 | NURSING ---
Called report to Shelli FONTANEZ in [facility]
--- NOTE | 2018-04-01 11:14 | PCM.PN.HOSP ---
Patient Problems: Active and Suspected Problems (Last Reviewed 03/05/18 @ 07:03 by Peyton Jara) Upper GI bleed (Acute) Subjective: No complaints, has some mild abdominal discomfort that is intermittent. She has a normal hemoglobin on admission so no lightheadedness or dizziness. Vitals/I&O's: Vital Signs Temp Pulse Resp BP Pulse Ox 98.7 F 63 18 157/67 H 95 04/01/18 09:15 04/01/18 09:15 04/01/18 09:15 04/01/18 09:15 04/01/18 09:15 Oxygen Delivery Method Room Air Weight: 218 lb 8.002 oz Body Mass Index (BMI) 36.3 Intake and Output for Last 24 Hours 03/30/18 03/31/18 04/01/18 23:59 23:59 23:59 Intake Total 760 / 760 1521 / 1521 Balance 760 / 760 1521 / 1521 General: Alert, Oriented x3, Cooperative, No apparent distress HEENT: Atraumatic, EOMI, Normocephalic Oral: Moist Mucosa Neck: Supple, No JVD Lungs: Clear to auscultation, Normal air movement, No rhonchi, No wheeze, No rales Cardiovascular: Regular rate, Regular Rhythm, Normal S1, Normal S2, No murmurs Abdomen: Soft, Non Tender, Non-Distended, No Hepato-splenomegaly Extremities: No edema, Capillary Refill Less than 3 Seconds Skin: No rashes, No breakdown Neurological: Neuro grossly intact, Sensory exam intact to light touch and pain Psych/Mental Status: Normal Affect, Appropriate Microbiology Past 72 Hours 03/31/18 12:25 Stool Stool Occult Blood (HOWARD) - Final Occult Blood Positive Laboratory Results 03/31/18 12:30: WBC 9.2, RBC 4.71, Hgb 14.2, Hct 39.9, MCV 84.7, MCH 30.1, MCHC 35.6, RDW 13.2, RDW Differential 40.5, Plt Count 189, MPV 11.6, Immature Gran % (Auto) 0.200, Neut % (Auto) 57.1, Lymph % (Auto) 28.8, [place] % (Auto) 10.1 H, Eos % (Auto) 3.0, Baso % (Auto) 0.8, Absolute Neuts (auto) 5.2, Absolute Lymphs (auto) 2.65, Total Counted Not Reportable 03/31/18 12:30: Sodium 139, Potassium 4.0, Chloride 106, Carbon Dioxide 26.0, Anion Gap 7, BUN 16, Creatinine 0.60, Estim Creat Clear Calc 47.10, Est GFR (MDRD) Af Amer 127, Est GFR (MDRD) Non-Af 105, BUN/Creatinine Ratio 26.7 H, Glucose 185 H, Calcium 9.0 03/31/18 12:30: Lactic Acid 2.0 03/31/18 12:30: Blood Type O POSITIVE, Antibody Screen NEGATIVE 03/31/18 12:30: PT 12.9, INR 1.0, APTT 29.6 03/31/18 12:30: Total Bilirubin 0.40, Direct Bilirubin 0.12, AST 32, ALT 33, Alkaline Phosphatase 117, Total Protein 6.8, Albumin 3.5, Globulin 3.3 03/31/18 15:51: POC Glucose 120 H 03/31/18 17:45: Hgb 13.9, Hct 38.8 03/31/18 17:45: Lactic Acid 0.9 03/31/18 21:18: POC Glucose 177 H 04/01/18 00:50: Hgb 12.5, Hct 36.2 L 04/01/18 06:45: WBC 6.5, RBC 4.46, Hgb 13.3, Hct 38.5, MCV 86.3, MCH 29.8, MCHC 34.5, RDW 13.3, RDW Differential 41.3, Plt Count 167, MPV 11.8, Immature Gran % (Auto) 0.300, Neut % (Auto) 52.6, Lymph % (Auto) 33.3, [place] % (Auto) 9.0, Eos % (Auto) 4.0, Baso % (Auto) 0.8, Absolute Neuts (auto) 3.4, Absolute Lymphs (auto) 2.16, Total Counted Not Reportable 04/01/18 06:45: Sodium 141, Potassium 4.1, Chloride 110 H, Carbon Dioxide 26.0, Anion Gap 5, BUN 12, Creatinine 0.47 L, Estim Creat Clear Calc 47.10, Est GFR (MDRD) Af Amer 168, Est GFR (MDRD) Non-Af 139, BUN/Creatinine Ratio 25.5 H, Glucose 183 H, Calcium 8.3 L 04/01/18 06:53: POC Glucose 187 H 04/01/18 10:46: POC Glucose 156 H Current Medications Atenolol (Tenormin (Beta Katerine)) 50 mg PO BID [facility] Last Admin: 04/01/18 09:21 Dose: 50 mg Dextrose (D50w Syringe) 0 gm IV X1 PRN; Protocol PRN Reason: Hypoglycemia Fluoxetine HCl (Prozac) 80 mg PO DAILY [facility] Last Admin: 04/01/18 09:21 Dose: 80 mg Gabapentin (Neurontin) 100 mg PO TIDCM [facility] Last Admin: 04/01/18 07:48 Dose: Not Given Glucagon () 1 mg IM .X1 PRN PRN Reason: Hypoglycemia Sodium Chloride () 1,000 mls @ 125 mls/hr IV .Q8H [facility] Last Admin: 04/01/18 03:45 Dose: 125 mls/hr Pantoprazole Sodium 40 mg/ (Sodium Chloride) 110 mls @ 330 mls/hr IV Q12 [facility] Last Admin: 04/01/18 09:23 Dose: 330 mls/hr Insulin Human Lispro (Humalog Kwikpen (Bkc)) 0 unit SQ ACHS [facility]; Protocol Last Admin: 04/01/18 11:01 Dose: Not Given Losartan Potassium (Cozaar) 50 mg PO DAILY [facility] Last Admin: 04/01/18 09:21 Dose: 50 mg Magnesium Hydroxide (Milk Of Magnesia) 30 ml PO DAILY PRN PRN Reason: Constipation Ondansetron HCl (Zofran) 4 mg IV Q8H PRN PRN PRN Reason: NAUSEA Orphenadrine Citrate (Norflex Er) 100 mg PO DAILY PRN PRN Promethazine HCl (Phenergan) 12.5 mg IV Q6H PRN PRN PRN Reason: NAUSEA/VOMITING Sodium Chloride () 5 - 15 ml IV UD PRN PRN Reason: SALINE FLUSH Trazodone HCl (Desyrel) 50 mg PO QHS [facility] Last Admin: 03/31/18 21:16 Dose: 50 mg Zolpidem Tartrate (Ambien (Generic)) 5 mg PO QHS PRN PRN PRN Reason: INSOMNIA Medical Necessity - Tobacco Use Smoking Status: Former smoker Tobacco Use: Cigarettes Assessment/Plan All Active Problems (Last Reviewed 03/05/18 @ 07:03 by Peyton Jara) Upper GI bleed (Acute) 1. Concern for UGI bleed - H/H normal and stable, occult blood positive. - C/w IVF - NPO for EGD - Colonoscopy around 10 years ago was normal - Will hold BP meds for now - Hold aspirin 2. HTN/HLD - c/w atenolol abd losartan - hold HCTZ and aldactone - echo was normal a year ago 3. DM2 - hold metformin - Accucheck ACHS with SSI - BG 183 4. Chronic back pain - C/w gabapentin - Decreased the dose of orphenadrine 5. Narcolepsy - She is on Armodafinil at home - will hold until after EGD 6. Moderate restrictive lung disease/KAYCEE - stable at the moment - c/w CPAP at home settings, she see pulmonology as an outpatient DVT: SCDs in the setting of GI bleed Code Visit Inpatient E&M: 21790 Subs Hosp L2
--- NOTE | 2018-04-01 11:29 | PN_ITS ---
Patient Problems: Active and Suspected Problems (Last Reviewed 03/05/18 @ 07:03 by Peyton Jara) Upper GI bleed (Acute) Subjective: No complaints, has some mild abdominal discomfort that is intermittent. She has a normal hemoglobin on admission so no lightheadedness or dizziness. Vitals/I&O's: Vital Signs Temp Pulse Resp BP Pulse Ox 98.7 F 63 18 157/67 H 95 04/01/18 09:15 04/01/18 09:15 04/01/18 09:15 04/01/18 09:15 04/01/18 09:15 Oxygen Delivery Method Room Air Weight: 218 lb 8.002 oz Body Mass Index (BMI) 36.3 Intake and Output for Last 24 Hours 03/30/18 03/31/18 04/01/18 23:59 23:59 23:59 Intake Total 760 / 760 1521 / 1521 Balance 760 / 760 1521 / 1521 General: Alert, Oriented x3, Cooperative, No apparent distress HEENT: Atraumatic, EOMI, Normocephalic Oral: Moist Mucosa Neck: Supple, No JVD Lungs: Clear to auscultation, Normal air movement, No rhonchi, No wheeze, No rales Cardiovascular: Regular rate, Regular Rhythm, Normal S1, Normal S2, No murmurs Abdomen: Soft, Non Tender, Non-Distended, No Hepato-splenomegaly Extremities: No edema, Capillary Refill Less than 3 Seconds Skin: No rashes, No breakdown Neurological: Neuro grossly intact, Sensory exam intact to light touch and pain Psych/Mental Status: Normal Affect, Appropriate Microbiology Past 72 Hours 03/31/18 12:25 Stool Stool Occult Blood (HOWARD) - Final Occult Blood Positive Laboratory Results 03/31/18 12:30: WBC 9.2, RBC 4.71, Hgb 14.2, Hct 39.9, MCV 84.7, MCH 30.1, MCHC 35.6, RDW 13.2, RDW Differential 40.5, Plt Count 189, MPV 11.6, Immature Gran % (Auto) 0.200, Neut % (Auto) 57.1, Lymph % (Auto) 28.8, Catron % (Auto) 10.1 H, Eos % (Auto) 3.0, Baso % (Auto) 0.8, Absolute Neuts (auto) 5.2, Absolute Lymphs (auto) 2.65, Total Counted Not Reportable 03/31/18 12:30: Sodium 139, Potassium 4.0, Chloride 106, Carbon Dioxide 26.0, Anion Gap 7, BUN 16, Creatinine 0.60, Estim Creat Clear Calc 47.10, Est GFR (MDRD) Af Amer 127, Est GFR (MDRD) Non-Af 105, BUN/Creatinine Ratio 26.7 H, Glucose 185 H, Calcium 9.0 03/31/18 12:30: Lactic Acid 2.0 03/31/18 12:30: Blood Type O POSITIVE, Antibody Screen NEGATIVE 03/31/18 12:30: PT 12.9, INR 1.0, APTT 29.6 03/31/18 12:30: Total Bilirubin 0.40, Direct Bilirubin 0.12, AST 32, ALT 33, Alkaline Phosphatase 117, Total Protein 6.8, Albumin 3.5, Globulin 3.3 03/31/18 15:51: POC Glucose 120 H 03/31/18 17:45: Hgb 13.9, Hct 38.8 03/31/18 17:45: Lactic Acid 0.9 03/31/18 21:18: POC Glucose 177 H 04/01/18 00:50: Hgb 12.5, Hct 36.2 L 04/01/18 06:45: WBC 6.5, RBC 4.46, Hgb 13.3, Hct 38.5, MCV 86.3, MCH 29.8, MCHC 34.5, RDW 13.3, RDW Differential 41.3, Plt Count 167, MPV 11.8, Immature Gran % (Auto) 0.300, Neut % (Auto) 52.6, Lymph % (Auto) 33.3, Catron % (Auto) 9.0, Eos % (Auto) 4.0, Baso % (Auto) 0.8, Absolute Neuts (auto) 3.4, Absolute Lymphs (auto) 2.16, Total Counted Not Reportable 04/01/18 06:45: Sodium 141, Potassium 4.1, Chloride 110 H, Carbon Dioxide 26.0, Anion Gap 5, BUN 12, Creatinine 0.47 L, Estim Creat Clear Calc 47.10, Est GFR (MDRD) Af Amer 168, Est GFR (MDRD) Non-Af 139, BUN/Creatinine Ratio 25.5 H, Glucose 183 H, Calcium 8.3 L 04/01/18 06:53: POC Glucose 187 H 04/01/18 10:46: POC Glucose 156 H Current Medications Atenolol (Tenormin (Beta Katerine)) 50 mg PO BID [facility] Last Admin: 04/01/18 09:21 Dose: 50 mg Dextrose (D50w Syringe) 0 gm IV X1 PRN; Protocol PRN Reason: Hypoglycemia Fluoxetine HCl (Prozac) 80 mg PO DAILY [facility] Last Admin: 04/01/18 09:21 Dose: 80 mg Gabapentin (Neurontin) 100 mg PO TIDCM [facility] Last Admin: 04/01/18 07:48 Dose: Not Given Glucagon () 1 mg IM .X1 PRN PRN Reason: Hypoglycemia Sodium Chloride () 1,000 mls @ 125 mls/hr IV .Q8H [facility] Last Admin: 04/01/18 03:45 Dose: 125 mls/hr Pantoprazole Sodium 40 mg/ (Sodium Chloride) 110 mls @ 330 mls/hr IV Q12 [facility] Last Admin: 04/01/18 09:23 Dose: 330 mls/hr Insulin Human Lispro (Humalog Kwikpen (Bkc)) 0 unit SQ ACHS [facility]; Protocol Last Admin: 04/01/18 11:01 Dose: Not Given Losartan Potassium (Cozaar) 50 mg PO DAILY [facility] Last Admin: 04/01/18 09:21 Dose: 50 mg Magnesium Hydroxide (Milk Of Magnesia) 30 ml PO DAILY PRN PRN Reason: Constipation Ondansetron HCl (Zofran) 4 mg IV Q8H PRN PRN PRN Reason: NAUSEA Orphenadrine Citrate (Norflex Er) 100 mg PO DAILY PRN PRN Promethazine HCl (Phenergan) 12.5 mg IV Q6H PRN PRN PRN Reason: NAUSEA/VOMITING Sodium Chloride () 5 - 15 ml IV UD PRN PRN Reason: SALINE FLUSH Trazodone HCl (Desyrel) 50 mg PO QHS [facility] Last Admin: 03/31/18 21:16 Dose: 50 mg Zolpidem Tartrate (Ambien (Generic)) 5 mg PO QHS PRN PRN PRN Reason: INSOMNIA Medical Necessity - Tobacco Use Smoking Status: Former smoker Tobacco Use: Cigarettes Assessment/Plan All Active Problems (Last Reviewed 03/05/18 @ 07:03 by Peyton Jara) Upper GI bleed (Acute) 1. Concern for UGI bleed - H/H normal and stable, occult blood positive. - C/w IVF - NPO for EGD - Colonoscopy around 10 years ago was normal - Will hold BP meds for now - Hold aspirin 2. HTN/HLD - c/w atenolol abd losartan - hold HCTZ and aldactone - echo was normal a year ago 3. DM2 - hold metformin - Accucheck ACHS with SSI - BG 183 4. Chronic back pain - C/w gabapentin - Decreased the dose of orphenadrine 5. Narcolepsy - She is on Armodafinil at home - will hold until after EGD 6. Moderate restrictive lung disease/KAYCEE - stable at the moment - c/w CPAP at home settings, she see pulmonology as an outpatient DVT: SCDs in the setting of GI bleed Code Visit Inpatient E&M: 59043 Subs Hosp L2
--- NOTE | 2018-04-01 12:00 | IMM_PTH ---
PATIENT: ANNELISE BRUMFIELD LOC: [facility] U#:[id number] AGE/SX: 68/F ROOM: [facility] RE03/31/[address]: Dr. Aristides Salazar MD : 1950 BED: 1 DIS: 04/01/2018 SPEC #: [id number] RECD: 04/01/18 14:49 STATUS: SOUWill REQ #: [id number] BONNY: 04/01/18 12:[address]: Fred Miller DEPT: IMMUNOHISTOCHEMISTRY RECD BY: Adelina Hood ENTERED: 04/01/18 14:50 SP TYPE: IMMUNO OTHR DR: MD Dr. Adair Alford MD Dr. William Lago, MD Tissues: Stomach, NOS Procedures: H Pylori (initial) Comments: @ Ordering doctor for H.PYLORI edited from to @ by WILLY at 04/01/18 1450 @ Submitting doctor edited from to @ by WILLY at 04/01/18 1450 PHYSICIAN & INSTITUTION [place] [id number] SPECIMEN INFORMATION: Tissue Source: Antral biopsy Clinical Info: GI bleed Specimen Number: [id number] CPT code: 13801 METHODOLOGY: Deparaffinized sections of prefer/formalin-fixed tissue or PAP/DQ stained slides are incubated with monoclonal/polyclonal antibodies/oligonucleotide probes. Localization is made via biotin free immunoperoxidase method. Appropriate controls are performed and reacted as expected. Results on target cell population are indicated in the following table: RESULTS: ANTIBODY / CLONE RESULT H Pylori (polyclonal) negative These tests were developed and their performance characteristics determined by [facility]. They may not have been cleared or approved by the U.S. Food and Drug Administration. The FDA has determined that such clearance or approval is not necessary. INTERPRETATION: Antral biopsy: Negative for Helicobacter pylori organisms. AM:bob 04/02/18
--- NOTE | 2018-04-01 12:00 | EGD_PTH ---
PATIENT: ANNELISE BRUMFIELD LOC: [facility] U#:[id number] AGE/SX: 68/F ROOM: [facility] RE03/31/[address]: Dr. Aristides Salazar MD : 1950 BED: 1 DIS: 04/01/2018 SPEC #: [id number] RECD: 04/01/18 12:36 STATUS: ANYA YOVANI #: [id number] BONNY: 04/01/18 12:[address]: Fred Miller DEPT: SURGICAL PATHOLOGY RECD BY: Erick Martinez ENTERED: 04/01/18 13:21 SP TYPE: EGD BIOPSY OT DR: MD Dr. Adair Alford MD Dr. William Lago, MD Tissues: Gastric mucous membrane Procedures: Surgery Specimen Level IV HEADER OPERATION: EGD ([facility]) PRE-OP DIAGNOSIS: GI bleed TISSUE SUBMITTED: Antral biopsy for H. Pylori MICROSCOPIC DIAGNOSIS Gastric antrum, biopsy: Minimal chronic inflammation. AM:bob 04/02/18 COMMENT The results of immunohistochemistry for Helicobacter pylori will be reported separately ([id number]). MICROSCOPIC DESCRIPTION Slides are reviewed. GROSS DESCRIPTION Received in fixative is one container labeled with the patient's name and designated antral biopsy. The specimen consists of one irregular fragment of [place] soft tissue that measures 0.3 x 0.1 x 0.1 cm. The specimen is totally submitted in one cassette. / SJ:bob 04/01/18 TC:3 CPT: 74166
--- NOTE | 2018-04-01 12:17 | OP.ENDO_ITS ---
Patient Name: Lauryn John Procedure Date: 04/01/2018 11:50 AM Date of : 1950 Age: 68 Procedure: Upper GI endoscopy Indications: Upper abdominal pain, Melena Providers: Fred Miller MD Referring MD: Adair Tsang Medicines: See the Anesthesia note for documentation of the administered medications Patient Profile: This is a 68 year old female. Refer to note in patient chart for documentation of history and physical. Complications: No immediate complications. Procedure: Pre-Anesthesia Assessment: - Prior to the procedure, a History and Physical was performed, and patient medications and allergies were reviewed. The patient's tolerance of previous anesthesia was also reviewed. The risks and benefits of the procedure and the sedation options and risks were discussed with the patient. All questions were answered, and informed consent was obtained. Prior Anticoagulants: The patient has taken aspirin, last dose was 1 day prior to procedure. ASA Grade Assessment: III - A patient with severe systemic disease. After reviewing the risks and benefits, the patient was deemed in satisfactory condition to undergo the procedure. After obtaining informed consent, the endoscope was passed under direct vision. Throughout the procedure, the patient's blood pressure, pulse, and oxygen saturations were monitored continuously. The gastroscope was introduced through the mouth, and advanced to the second part of duodenum. The upper GI endoscopy was accomplished without difficulty. The patient tolerated the procedure well. Scope In: 12:06:18 PM Scope Out: 12:10:29 PM Total Procedure Duration Time 0 hours 4 minutes 11 seconds Findings: The Z-line was regular and was found 40 cm from the incisors. No biopsies or other specimens were collected for this exam. The examined esophagus was normal. Multiple dispersed, greater than 50 mm non-bleeding erosions were found in the entire examined stomach. There were no stigmata of recent bleeding. Biopsies were taken with a cold forceps for Helicobacter pylori testing. No ulcerswere found. The examined duodenum was normal. No ulcers were found. No biopsies or other specimens were collected for this exam. Impression: - Z-line regular, 40 cm from the incisors. No specimens collected. - Normal esophagus. - Non-bleeding erosive gastropathy. Biopsied. - Normal examined duodenum. No specimens collected. Recommendation: - [facility]. - Resume previous diet. - Continue present medications. - Await pathology results. - Repeat upper endoscopy at appointment to be scheduled for surveillance. - Return to my office in 1 week. Procedure Code(s): --- Professional --- 09922, Esophagogastroduodenoscopy, flexible, transoral; with biopsy, single or multiple Diagnosis Code(s): --- Professional --- K31.89, Other diseases of stomach and duodenum R10.10, Upper abdominal pain, unspecified K92.1, Melena (includes Hematochezia) CPT copyright 2017 [employer]. All rights reserved. The codes documented in this report are preliminary and upon floral arranger review may be revised to meet current compliance requirements. MD Fred Perez MD 04/01/2018 12:16:34 PM This report has been signed electronically. Number of Addenda: 0 Note Initiated On: 04/01/2018 11:50 AM
[2018-04-01] MEDS: Gabapentin 100 MG Capsule PO (13:24)
[2018-04-01 13:30] LABS: Bedside Glucose 117 mg/dL (70-110)
--- NOTE | 2018-04-01 14:15 | CASEMGMT ---
RN HERNAN Face to Face with patient for initial transition planning/care coordination assessment. RN CM introduced self and role at [facility]. Patient lying in bed, alert and oriented. Patient willing to participate in assessment and is able to answer all questions appropriately. Care providers, pharmacy, and demographics verified. Patient wishes to discharge home, denies need for home health at this time. Patient states she has no further needs or concerns at this time. CM to follow for discharge planning needs that may arise. PCP: Chevy Specialists: Willy clinical audiologist Preferred Pharmacy: [facility] Insurance: [employer] Prescription Benefit: [employer] Living Will/HPOA: None LNOK: Daughters Living Arrangements: Patient lives alone in 2 story house with bed and bath on 1st floor. Independent at home. Transportation: Self/daughters DME/HHC: None Disposition Plan: Patient to discharge home with family support and follow-up plans in place. Essie CABRERA, RN, CM
--- NOTE | 2018-04-01 16:20 | DCINST_ITS ---
- Discharge Diagnoses Current Active Problems: Current Active and Chronic Problems (Last Reviewed 03/05/18 @ 07:03 by Peyton Jara) Upper GI bleed (Acute) You will use the following diet at home:: Calorie/Carbohydrate Controlled (specify 1200, 1400, etc) Your food should be the consistency of: Regular Your liquids should be the consistency of: Regular/Thin Discharge Activity: No Restrictions Call your doctor if you observe: Shortness of breath, Dizziness, Fainting spells, Chest pain Allergies/Adverse Reactions: Allergies amlodipine Adverse Reaction (Severe, Verified 03/31/18 12:08) Unknown nickel Adverse Reaction (Severe, Verified 03/31/18 12:08) Unknown lisinopril Adverse Reaction (Mild, Verified 03/31/18 12:08) Other - cough Medications to take at Discharge armodafinil 250 mg tablet 250 mg PO DAILY PRN tab 09/09/17 colestipol 1 gram tablet 1 g PO DAILY tab 09/09/17 fluoxetine 20 mg capsule 80 mg PO QHS 09/09/17 gabapentin 100 mg capsule 100 mg PO TID cap 09/09/17 hydrochlorothiazide 25 mg tablet 25 mg PO DAILY 09/09/17 losartan 100 mg tablet 100 mg PO DAILY 09/09/17 orphenadrine citrate ER 100 mg tablet,extended release 100 mg PO QDAY PRN tab 09/09/17 trazodone 50 mg tablet 50 mg PO QHS tab 09/09/17 atenolol 50 mg tablet 50 mg PO BID tab 09/12/17 cyclosporine 0.05 % eye drops in a dropperette 1 drp OPHTHALMIC Q12H PRN 0 10/30/17 metformin 500 mg tablet 500 mg PO BIDCM 10/30/17 spironolactone 50 mg tablet 25 mg PO DAILY tab 10/30/17 Multivitamins,Therapeutic [Multivitamin] 1 tablet PO DAILY 03/31/18 Penciclovir [Denavir] 1 applicatio TP BID PRN 03/31/18 Pantoprazole Sodium [Protonix] 40 mg PO BID #60 tablet 04/01/18 The following prescriptions were given: Pantoprazole Sodium [Protonix] 40 mg PO BID #60 tablet Primary Care Physician: Rhett Reece MD [Primary Care Provider] - Please follow up with your Primary Care Physician in: in 3-5 days Test Results: Test results from this visit will be discussed in further detail at your follow- up appointment, if applicable. Please Follow Up With: Fred Miller MD When: In 1 week
--- NOTE | 2018-04-01 16:20 | PCM.DC.SUM ---
Discharge Date and Diagnosis - Problem List Patient Problems: Active and Suspected Problems (Last Reviewed 03/05/18 @ 07:03 by Peyton Jara) Upper GI bleed (Acute) Date of Admission: 03/31/18 Date of Discharge: 04/01/18 - Primary Discharge Diagnosis Active and Suspected Problems (Last Reviewed 03/05/18 @ 07:03 by Peyton Jara) Upper GI bleed (Acute) - Secondary Discharge Diagnosis Chronic Problems (Last Reviewed 03/05/18 @ 07:03 by Peyton Jara) Restrictive lung disease (Chronic) Dyspnea on exertion (Chronic) Encounter for long-term current use of high risk medication (Chronic) Hypertension (Chronic) Hyperlipidemia (Chronic) Abnormal findings on diagnostic imaging of heart and coronary circulation (Chronic) Pericardial effusion (noninflammatory) (Chronic) Nonrheumatic mitral valve insufficiency (Chronic) Non-rheumatic tricuspid valve insufficiency (Chronic) Acoustic neuroma (Chronic) Benign hypertension (Chronic) Hospital Course and Treatment Imaging Results: None Consults: General Surgery Operations: None Procedures: EGD - Impression: - Z-line regular, 40 cm from the incisors. No specimens collected. - Normal esophagus. - Non-bleeding erosive gastropathy. Biopsied. - Normal examined duodenum. No specimens collected. Recommendation: - [facility]. - Resume previous diet. - Continue present medications. - Await pathology results. - Repeat upper endoscopy at appointment to be scheduled for surveillance. - Return to my office in 1 week. 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 She has abdominal cramps that is started in epigastrium and was diffuse moved to lower abdomen but was mild in intensity. She denies nausea/vomiting/hematemesis. She denies previous history of GI bleed. She takes baby aspirin. She had EGD and colonoscopy in the past but many years ago and does not remember the details but said it was okay. In ED, occult blood was positive. H&H 14.2/39.9. Platelet count 189,000. K4.0. BUN/creatinine 16/0.6. Vital Signs - 24 hr Temp Pulse Resp BP BP Pulse Ox 04/01/18 15:14 77 04/01/18 13:30 93 04/01/18 13:10 98.4 F 65 18 158/77 H 93 04/01/18 12:35 97.4 F L 72 16 170/70 H 95 04/01/18 12:30 72 16 158/74 H 96 04/01/18 12:25 75 16 143/71 H 93 04/01/18 12:21 97.9 F 75 16 157/67 H 93 04/01/18 11:04 63 04/01/18 09:15 98.7 F 63 18 157/67 H 95 04/01/18 06:59 80 04/01/18 03:15 97.6 F L 63 20 H 157/48 H 95 04/01/18 03:04 61 03/31/18 23:52 61 03/31/18 21:15 98.4 F 64 20 H 162/53 H 95 03/31/18 19:11 81 03/31/18 18:43 98.7 F 75 18 156/56 H 94 Hospital Course: 1. UGI bleed - She had an asymptomatic episode of melena and presented with normal hemoglobin. She was taken for an EGD on the discharge which demonstrated multiple erosions without evidence of bleeding. Discussed that the safest course would be to stay the night for further observation and repeat labs, however she is adamant about going home. I will discharge her with the understanding that she needs to return if she has any symptoms. She will be given a PPI bid and will follow-up with general surgery. She is to stop her aspirin until she is seen in follow-up and she is to stop her naproxen 2. Her other diagnoses were evaluated and her home medications were continued where appropriate Patient Problems: Active and Suspected Problems (Last Reviewed 03/05/18 @ 07:03 by Peyton Jara) Upper GI bleed (Acute) - Physical Exam Vital Signs Temp Pulse Resp BP Pulse Ox 98.4 F 77 18 158/77 H 93 04/01/18 13:10 04/01/18 15:14 04/01/18 13:10 04/01/18 13:10 04/01/18 13:30 Oxygen Flow Rate (L/min) 2 Oxygen Delivery Method Room Air Weight: 218 lb 8.002 oz Body Mass Index (BMI) 36.3 Intake and Output for Last 24 Hours 03/30/18 03/31/18 04/01/18 23:59 23:59 23:59 Intake Total 760 / 760 2729 / 2729 Balance 760 / 760 2729 / 2729 Microbiology Past 72 Hours 03/31/18 12:25 Stool Occult Blood (HOWARD) - Final Stool Occult Blood Positive Laboratory Tests Past 24 Hrs 03/31/18 03/31/18 04/01/18 17:45 17:45 00:50 WBC RBC Hgb 13.9 12.5 Hct 38.8 36.2 L MCV MCH MCHC RDW RDW Differential Plt Count MPV Immature Gran % (Auto) Neut % (Auto) Lymph % (Auto) [place] % (Auto) Eos % (Auto) Baso % (Auto) Absolute Neuts (auto) Absolute Lymphs (auto) Total Counted Sodium Potassium Chloride Carbon Dioxide Anion Gap BUN Creatinine Estim Creat Clear Calc Est GFR (MDRD) Af Amer Est GFR (MDRD) Non-Af BUN/Creatinine Ratio Glucose Lactic Acid 0.9 Calcium 04/01/18 04/01/18 06:45 06:45 WBC 6.5 RBC 4.46 Hgb 13.3 Hct 38.5 MCV 86.3 MCH 29.8 MCHC 34.5 RDW 13.3 RDW Differential 41.3 Plt Count 167 MPV 11.8 Immature Gran % (Auto) 0.300 Neut % (Auto) 52.6 Lymph % (Auto) 33.3 [place] % (Auto) 9.0 Eos % (Auto) 4.0 Baso % (Auto) 0.8 Absolute Neuts (auto) 3.4 Absolute Lymphs (auto) 2.16 Total Counted Not Reportable Sodium 141 Potassium 4.1 Chloride 110 H Carbon Dioxide 26.0 Anion Gap 5 BUN 12 Creatinine 0.47 L Estim Creat Clear Calc 47.10 Est GFR (MDRD) Af Amer 168 Est GFR (MDRD) Non-Af 139 BUN/Creatinine Ratio 25.5 H Glucose 183 H Lactic Acid Calcium 8.3 L POC Glucose 04/01/18 04/01/18 04/01/18 13:24 10:46 06:53 POC Glucose 117 H 156 H 187 H 03/31/18 21:18 POC Glucose 177 H Discharge Activity: No Restrictions Call your doctor if you observe: Shortness of breath, Dizziness, Fainting spells, Chest pain Home Medications: Medications to take at Discharge armodafinil 250 mg tablet 250 mg PO DAILY PRN tab 09/09/17 colestipol 1 gram tablet 1 g PO DAILY tab 09/09/17 fluoxetine 20 mg capsule 80 mg PO QHS 09/09/17 gabapentin 100 mg capsule 100 mg PO TID cap 09/09/17 hydrochlorothiazide 25 mg tablet 25 mg PO DAILY 09/09/17 losartan 100 mg tablet 100 mg PO DAILY 09/09/17 orphenadrine citrate ER 100 mg tablet,extended release 100 mg PO QDAY PRN tab 09/09/17 trazodone 50 mg tablet 50 mg PO QHS tab 09/09/17 atenolol 50 mg tablet 50 mg PO BID tab 09/12/17 cyclosporine 0.05 % eye drops in a dropperette 1 drp OPHTHALMIC Q12H PRN 10/30/17 metformin 500 mg tablet 500 mg PO BIDCM 10/30/17 spironolactone 50 mg tablet 25 mg PO DAILY tab 10/30/17 Multivitamins,Therapeutic [Multivitamin] 1 tablet PO DAILY 03/31/18 Penciclovir [Denavir] 1 applicatio TP BID PRN 03/31/18 Pantoprazole Sodium [Protonix] 40 mg PO BID #60 tablet 04/01/18 Following Prescrptions Were Given to Patient: Pantoprazole Sodium [Protonix] 40 mg PO BID #60 tablet Primary Care Physician: Rhett Reece MD [Primary Care Provider] - Please follow up with your Primary Care Physician in: in 3-5 days Please Follow Up With: Fred Miller MD When: In 1 week Disposition: Home Minutes spent on discharge:: 35 Patient Condition:: Good Medical Necessity - Tobacco Use Smoking Status: Former smoker Tobacco Use: Cigarettes Meaningful Use Info Meaningful Use Diagnoses (Choose all that apply): None applicable Code Visit Inpatient E&M: 82277 Disch Hosp
--- NOTE | 2018-04-01 17:07 | NURSING ---
Reviewed and agreed on all charting with Neyda Batista RN
--- OUTSIDE RECORDS SUMMARY | 2018-05-13 06:08 | XMS RPT_ITS ---
:1950 Author Organization OHIP Support Name Relationship Address Phone KAVON, NAVNEET Unavailable [address] + [place] [address] R Unavailable Unavailable Unavailable DANIELSLATHANIGHAT Unavailable [address] + [place] [address] KAVON, NAVNEET Unavailable [address] + [place] [address] R Unavailable Unavailable Unavailable FRANCES, NIGHAT Unavailable [address] + [place] [address] KAVON, NAVNEET Unavailable [address] + [place] [address] NIGHAT DANIELS Unavailable [address] + [place] [address] WOOBR Unavailable [address] + [address] [place] [address] KAVON, NAVNEET Unavailable [address] + [place] [address] R Unavailable Unavailable Unavailable DANIELS, NIGHAT Unavailable [address] + [place] [address] KAVON, NAVNEET Unavailable [address] + [place] [address] R Unavailable Unavailable Unavailable FRANCES, NIGHAT Unavailable [address] + [place] [address] KAVON, NAVNEET Unavailable [address] + [place] [address] R Unavailable Unavailable Unavailable FRANCES, NIGHAT Unavailable [address] + [place] [address] KAVON, NAVNEET Unavailable [address] + [place] [address] LATHA DANIELSARY Unavailable [address] + [place] [address] WOOBR Unavailable [address] + [address] [place] [address] KAVON, NAVNEET Unavailable [address] + [place] [address] R Unavailable Unavailable Unavailable DANIELS, NIGHAT Unavailable [address] + [place] [address] KAVON, NAVNEET Unavailable [address] + [place] [address] DANIELS, NIGHAT Unavailable [address] + [place] [address] WOOBR Unavailable [address] + [address] [place] [address] KAVON, NAVNEET Unavailable [address] + [place] [address] FRANCES, NIGHAT Unavailable [address] + [place] [address] WOOBR Unavailable [address] + [address] [place] [address] KAVON, NAVNEET Unavailable [address] + [place] [address] FRANCES, NIGHAT Unavailable [address] + [place] [address] WOOBR Unavailable [address] + [address] [place] [address] KAVON, NAVNEET Unavailable [address] + [place] [address] FRANCES, NIGHAT Unavailable [address] + [place] [address] WOOBR Unavailable [address] + [address] [place] [address] KAVON, NAVNEET Unavailable [address] + [place] [address] FRANCES, NIGHAT Unavailable [address] + [place] [address] WOOBR Unavailable [address] + [address] [place] [address] KAVON, NAVNEET Unavailable [address] + [place] [address] FRANCES, NIGHAT Unavailable [address] + [place] [address] WOOBR Unavailable [address] + [address] [place] [address] KAVON, NAVNEET Unavailable [address] + [place] [address] LATHA DANIELSARY Unavailable [address] + [place] [address] WOOBR Unavailable [address] + [address] [place] [address] KAVON, NAVNEET Unavailable [address] + [place] [address] FRANCES NIGHAT Unavailable [address] + [place] [address] WOOBR Unavailable [address] + [address] [place] [address] KAVON, NAVNEET Unavailable [address] + [place] [address] LATHA DANIELSARY Unavailable [address] + [place] [address] WOOBR Unavailable [address] + [address] [place] [address] KAVON, NAVNEET Unavailable [address] + [place] [address] LATHA DANIELSARY Unavailable [address] + [place] [address] WOOBR Unavailable [address] + [address] [place] [address] BRUMFIELD, NAVNEET Unavailable [address] + [place] [address] LATHA DANIELSARY Unavailable [address] + [place] [address] WOOBR Unavailable [address] + [address] [place] [address] BRUMFIELD, NAVNEET Unavailable [address] + [place] [address] NIGHAT DANIELS Unavailable [address] + [place] [address] WOOBR Unavailable [address] + [address] [place] [address] BRUMFIELD, NAVNEET Unavailable [address] + [place] [address] NIGHAT DANIELS Unavailable [address] + [place] [address] WOOBR Unavailable [address] [facility] [place] [place] [address] Care Team Providers Name Role Phone RHETT DORSEY Referring Unavailable RHETT DORSEY Attending Unavailable MANDEEP MENSAH Attending Unavailable MANDEEP MENSAH Referring Unavailable SUNITA, RHETT Gimenez Attending Unavailable SUNITA, RHETT Gimenez Referring Unavailable SUNITA, RHETT Gimenez Referring Unavailable SUNITA, RHETT Gimenez Attending Unavailable SUNITA, RHETT Gimenez Referring Unavailable SUNITA, RHETT Gimenez Referring Unavailable SUNITA, RHETT Gimenez Referring Unavailable ALIYAH BERNARD Attending Unavailable MANDEEP MENSAH Attending Unavailable SUNITA, RHETT Gimenez Attending Unavailable SUNITA, RHETT Gimenez Referring Unavailable SUNITA, RHETT Gimenez Attending Unavailable SUNITA, RHETT Gimenez Referring Unavailable SUNITA, RHETT Gimenez Referring Unavailable SUNITA, RHETT Gimenez Attending Unavailable SUNITA, RHETT Gimenez Referring Unavailable SUNITA, RHETT Gimenez Referring Unavailable Sarah Kelsey Attending Unavailable Kevin Wu Attending Unavailable Sunita, Rhett Referring Unavailable [place], Rhett Primary Care Unavailable [place], Rhett Primary Care Unavailable Sharan, Adair Admitting Unavailable Sharan, Adair Referring Unavailable Fred Miller Consulting Unavailable Aristides Salazar Attending Unavailable Sharan, Adair Admitting Unavailable Aristides Salazar Attending Unavailable Sharan, Adair Referring Unavailable Sunita, Rhett Primary Care Unavailable Fred Miller Consulting Unavailable Aristides Salazar Consulting Unavailable Angelita Godfrey Attending Unavailable [place], Rhett Referring Unavailable Noel Dunlap D.O. Attending Unavailable Noel Dunlap D.O. Referring Unavailable Sunita, Rhett Primary Care Unavailable Noel Dunlap D.O. Attending Unavailable Noel Dunlap D.O. Referring Unavailable [place], Rhett Primary Care Unavailable Noel Dunlap D.O. Attending Unavailable Sunita, Rhett Referring Unavailable Rosie Soares Attending Unavailable Laina Giraldo RAIL TRACTOR OPERATOR-C Attending Unavailable [place], Rhett Primary Care Unavailable Hosea Aguilera Attending Unavailable Aristides Salazar Referring Unavailable Hosea Aguilera Attending Unavailable Sunita, Rhett Referring Unavailable Noel Dunlap D.O. Attending Unavailable Sunita, Rhett Referring Unavailable Angelita Godfrey Attending Unavailable Godfrey, Angelita Referring Unavailable Sunita, Rhett Primary Care Unavailable Noel Dunlap D.O. Attending Unavailable Noel Dunlap D.O. Referring Unavailable Cooper Mathews Attending Unavailable Noel Dunlap D.O. Referring Unavailable Fred Miller Attending Unavailable Sharan, Adair Admitting Unavailable Lore Valencia PA-C Attending Unavailable Sharan, Adair Referring Unavailable Sunita, Rhett Primary Care Unavailable Angela, Fred Consulting Unavailable Sharan, Adair Consulting Unavailable Sharan, Adari Admitting Unavailable Sharan, Adair Attending Unavailable Sharan, Adair Referring Unavailable [place], Rhett Primary Care Unavailable Sharan, Adair Consulting Unavailable [place], Fred Attending Unavailable [place], Rhett Referring Unavailable Jazmin, Kevin Mcdonough Attending Unavailable [place], Rhett Referring Unavailable PROBLEMS PROBLEMS DATE TYPE CONDITION / CODE ATTENDING STATUS SOURCE 04/15/2018 Active Gastrointestinal NA Active [place] hemorrhage, [facility] unspecified / [facility] K92.2(ICD-10) Repository 04/14/2018 Unknown R19.5 - Other fecal Angela, Active [place] abnormalities / [facility] R19.5(ICD-10) Hospital Repository 04/13/2018 Unknown K92.1 - Melena / Angela, Active [place] K92.1(ICD-10) [facility] Hospital Repository 04/13/2018 Unknown K92.2 - Angela, Active [place] Gastrointestinal [facility] hemorrhage, Hospital unspecified / Repository K92.2(ICD-10) 04/13/2018 Unknown K31.89 - Other [place], Active [place] diseases of stomach [facility] and duodenum / Hospital K31.89(ICD-10) Repository 03/05/2018 Unknown R91.1 - Solitary Noel Dunlap, Active [place] pulmonary nodule / [facility] R91.1(ICD-10) Hospital Repository 01/22/2018 Unknown J98.4 - Other Godfrey, Active [place] disorders of lung / [facility] J98.4(ICD-10) Hospital Repository 01/28/2018 Unknown R06.09 - Other forms Noel Dunlap, Active [place] of dyspnea / [facility] R06.09(ICD-10) Hospital Repository 04/09/2010 Active Hyperlipidemia, NA Active [place] unspecified / [facility] E78.5(ICD-10) [facility] Rep[facility] 01/09/2018 Active Other amnesia / NA Active [place] R41.3(ICD-10) [facility] Rep[facility] 01/09/2018 Active Anesthesia of skin / NA Active [place] R20.0(ICD-10) [facility] Rep[facility] 01/09/2018 Active Paresthesia of skin / NA Active [place] R20.2(ICD-10) [facility] Rep[facility] 01/01/2018 Active Unknown / UNK(Unknown) [place]KE, Active [place] MANDEEP [facility] Rep[facility] 12/02/2017 Active Encounter for NA Active [place] screening mammogram [facility] for malignant neoplasm [facility] of breast / Repository Z12.31(ICD-10) 11/04/2017 Active Inflammatory NA Active [place] polyarthropathy / [facility] M06.4(ICD-10) [facility] Rep[facility] 10/09/2005 Active Essential (primary) NA Active [place] hypertension / [facility] I10(ICD-10) [facility] Rep[facility] 08/18/2017 Active Chronic sinusitis, NA Active [place] unspecified / [facility] J32.9(ICD-10) [facility] Rep[facility] 08/18/2017 Active Other specified NA Active [place] bacterial agents as [facility] the cause of diseases [facility] classified elsewhere / Repository B96.89(ICD-10) 08/18/2017 Active Hemoptysis / NA Active [place] R04.2(ICD-10) [facility] Rep[facility] 04/29/2017 Unknown G47.33 - Obstructive Enzo, Laina Active [place] sleep apnea (adult) 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 TRACTOR OPERATOR-C Community (pediatric) / Hospital G47.33(ICD-10) Repository 04/29/2017 Active Type 2 diabetes NA Active [place] mellitus without [facility] complications / [facility] E11.9(ICD-10) Repository PROCEDURES PROCEDURES No Procedure Records FoundRESULTS RESULTS CBC AND DIFFERENTIAL Collected: 04/15/2018 Status: F Source: [facility] 4:43 PM [facility] REPOSITORY TYPE CODE TESTS RESULT OUT OF REFERENCE UNITS RANGE LAB WBC 3.70-11.00 k/uL WBC High 11.05 LAB RBC 3.90-5.20 m/uL RBC 4.81 LAB HGB 11.5-15.5 g/dL Hemoglobin 14.2 LAB HCT 36.0-46.0 % Hematocrit 41.1 LAB MCV 80.0-100.0 fL MCV 85.4 LAB MCH 26.0-34.0 pG MCH 29.5 LAB MCHC 30.5-36.0 g/dL MCHC 34.5 LAB RDWCV 11.5-15.0 % RDW-CV 13.0 LAB PLTCT 150-400 k/uL Platelet Count 229 LAB MPV 9.0-12.7 fL MPV 12.5 LAB ANEUT % Neut% 57.4 LAB AANEUT 1.45-7.50 k/uL Abs Neut 6.34 LAB ALYMP % Lymph% 30.6 LAB AALYMP 1.00-4.00 k/uL Abs Lymph 3.38 LAB AMONO % [place]% 8.1 LAB AAMONO <0.87 k/uL Abs [place] High 0.90 LAB AEOS % Eosin% 2.8 LAB AAEOS <0.46 k/uL Abs Eosin 0.31 LAB ABASO % Baso% 1.1 LAB AABASO <0.11 k/uL Abs Baso High 0.12 LAB AUNRBC 0 /100 WBC NRBCs 0.0 LAB ABNRBC <0.01 k/uL Absolute nRBC <0.01 LAB DTYP DTYPE Auto Diff Performed By: #### CBCDIF #### [facility] [employer] [address] [place], [place] [address] HEMOGLOBIN A1C Collected: 04/15/2018 Status: F Source: [facility] 4:43 PM [facility] REPOSITORY TYPE CODE TESTS RESULT OUT OF REFERENCE UNITS RANGE LAB HGBA1C 4.3-5.6 % High Hemoglobin A1c 7.2 Result Comment: [place] [employer] guidelines indicate that patients with HgbA1c in the range 5.7-6.4% are at increased risk for development of diabetes, and intervention by lifestyle modification may be beneficial. HgbA1c greater or equal to 6.5% is considered diagnostic of diabetes. LAB HBA0 mg/dL Est. Average Glucose 160 Result Comment: eAG: (Estimated average glucose) is a calculated value from HgbA1c and is union contract representative of the average blood glucose level in the last 2-3 month period. Performed By: #### HBA1C #### [facility] [employer] [address] [place], [place] [id number] PROGRESS Observed: 04/15/2018 Status: COMPLETED Source: [facility] 3:53 PM [facility] REPOSITORY HNO ID: [id number] Author: Rhett Dorsey Service: (none) Author Type: Physician Type: Progress Notes Filed: 04/15/2018 4:05 PM Note Text: Patient presents with: Hospital F/U HPI: Patient presents today for office visit for follow up. Nursing Notes: Leyda Jo LPN 04/15/2018 3:51 PM Signed HOSPITAL/ER FOLLOW UP: Reason for visit: black stool and abd pain Which facility: [facility] Date of visit: 03/31/18 Discharge: 04/01/18 Diagnosis: Upper GI bleed Testing done: EGD with biopsy saw Dr Miller for follow up yesterday and was told to just follow up in 1 year Treatment given: pantoprazole 40 mg twice per day Current symptoms: stools are back to normal still with minimal discomfort in her stomach Retired at the end of Mar and insurance isn't as good now so is trying to cut back on medications. Patient asking about repeat colonoscopy? Had sigmoidoscopy done 2014 and [employer] maintenance has a 10 year modifier. No further black stools. Discussed avoiding nsiads. No gi issues. No heartburn. No bloody or black stools. No chest pain or shortness of breath. Discussed that had colonoscopy in 2009 and flex sig in 2014. (declined colonoscopy then-done for diarrhea) MEDICATIONS: Current Outpatient Prescriptions: armodafinil (NUVIGIL) 250 mg tab Take 250 mg by mouth once daily. atenolol (TENORMIN) 50 mg tablet Take 1.5 tablets by mouth twice daily. FLUoxetine (PROZAC) 20 mg capsule TAKE 4 CAPSULES BY MOUTH ONCE DAILY. (Patient taking differently: Take 40 mg by mouth twice daily. TAKE 4 CAPSULES BY MOUTH ONCE DAILY. ) gabapentin (NEURONTIN) 100 mg capsule Take 100 mg by mouth three times daily. hydroCHLOROthiazide (HYDRODIURIL, ESIDRIX) 25 mg tablet Take 1 tablet by mouth once daily. losartan (COZAAR) 100 mg tablet TAKE 1 TABLET BY MOUTH ONCE DAILY. metFORMIN (GLUCOPHAGE) 500 mg tablet TAKE 1 TABLET BY MOUTH TWICE DAILY WITH MEALS. spironolactone (ALDACTONE) 25 mg tablet Take 1 tablet by mouth once daily. traZODone (DESYREL) 50 mg tablet TAKE 1 TABLET BY MOUTH DAILY AT BEDTIME. aspirin(ADULT LOW DOSE ASPIRIN 81 MG TAB, DELAYED RELEASE) Take one(1) tablet daily. benzonatate (TESSALON PERLE) 100 mg capsule Take 1 capsule by mouth three times daily as needed. (Patient not taking: Reported on 11/04/2017 ) CALCIUM 600 + D 600 MG-125 UNIT TAB Take one(1) tablet daily. colestipol (COLESTID) 1 gram tablet TAKE 1 TABLET BY MOUTH ONCE DAILY. lancets (ONE TOUCH DELICA) 33 gauge misc USE INSTRUCTED multivitamins(DAILY MULTIVITAMIN TAB) Take one(1) tablet daily. naproxen (NAPROSYN) 500 mg tablet TAKE 1 TABLET BY MOUTH TWICE A DAY WITH MEALS NEEDED ONETOUCH DELICA LANCETS 30 gauge misc TEST BLOOD SUGAR 2-3 TIMES DAILY ONETOUCH VERIO test strip TEST BLOOD SUGAR(S) 2 TO 3 TIMES DAILY. DX: TYPE 2 DM - CONTROLLED E11.9 INSULIN: NO orphenadrine ER (NORFLEX) 100 mg tablet TAKE 1 TABLET BY MOUTH EVERY DAY (Patient not taking: Reported on 04/15/2018) penciclovir (DENAVIR) 1 % cream Apply 1 application to affected area twice daily as needed. (Patient not taking: Reported on 04/15/2018 ) RESTASIS MULTIDOSE 0.05 % drop No current facility-administered medications for this visit. ALLERGIES: ALLERGIES Allergen Reactions - Metal [Other] Rash, Itching - Nickel Rash, Itching - Amlodipine Swelling - Lisinopril Cough PAST MEDICAL HISTORY Diagnosis Date - Cardiomyopathy in other diseases classified elsewhere echo 2008-normal EF - Complication of anesthesia - Diverticulosis of colon (without mention of hemorrhage) - Esophageal reflux Gastroesophageal reflux - Internal hemorrhoids without mention of complication - Mental disorder - Myalgia and myositis, unspecified Fibromyalgia (myalgia and myositis) - PMH - PAST MEDICAL HISTORY OF pre diabetic - Sleep apnea - Unspecified essential hypertension Essential hypertension PAST SURGICAL HISTORY Procedure Laterality Date - COLONOSCOP W/ OR W/O [facility] SPEC 1999 Colonoscopy-due 2009 - COLONOSCOP W/ OR W/O [facility] SPEC 01/29/10 - DENTAL SURGERY PROCEDURE 04/2010 laser top right teeth - EGD 04/01/2018 Dr Miller - EGD W/O OR W/BRUSH/WASH 05/2003 EGD - 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 - Stroke Mother - Alzheimer's Disease Father - Osteoporosis Sister - Thyroid Daughter - Cancer Brother kidney ca./renal cell - Coronary Artery Disease Brother OR, has a bad disc is the same as above - Cancer Maternal Grandmother liver ca. 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 Hasn't smoked since she was 48yrs. Alcohol use: No Drug use: No Sexual activity: No Reviewed current medications, allergies, past medical history, surgical history, family history and social history today. REVIEW OF SYSTEMS All other reviewed and negative other than HPI. HEALTH MAINTENANCE: Reviewed health maintenance issues today and recommended the following in detail. BP CONTROLLED (<130/80) due on 01/10/1966 DTAP,TDAP,TD(2 - Td) due on 01/01/2017 VITALS: BP 132/78 Pulse 72 Resp 18 Wt 98.9 kg (218 lb) BMI 36.10 kg/m? Last 4 Encounter Wt Readings: Date: Wt: 04/15/2018 98.9 kg (218 lb) 02/10/2018 101.2 kg (223 lb) 01/09/2018 95.7 kg (211 lb) 12/02/2017 98.9 kg (218 lb) PHYSICAL EXAMINATION: General appearance: Well appearing, alert, in no acute distress, well-hydrated, well nourished. Skin: Skin color, texture, turgor normal, no suspicious rashes or lesions Head: Normocephalic, no masses, lesions, tenderness or abnormalities Lungs: lungs clear to auscultation. No wheezing, rhonchi, rales Heart: RRR without murmur, gallop, or rubs. No ectopy Abdomen: Normal abdominal exam, Abdomen soft, non-tender. Bowel sounds normal. No masses, organomegaly Extremities: No deformities, edema, skin discoloration, clubbing or cyanosis. Good capillary refill. Musculoskeletal: No joint swelling, deformity, or tenderness Peripheral pulses: Normal PSYCH:Affect normal. Normal speech. Normal eye contact ASSESSMENT/PLAN: 1. Gastrointestinal hemorrhage, unspecified gastrointestinal hemorrhage type - ICD9: 578.9, ICD10: K92.2 (primary diagnosis) - continue meds. Avoid nsiads. Call if any issues. - PANTOPRAZOLE 40 MG TABLET,DELAYED RELEASE - CBC + DIFF 2. Inflammatory polyarthritis (HCC) - ICD9: 714.9, ICD10: M06.4 - stable. 3. Type 2 diabetes mellitus without complication, without long-term current use of insulin (HCC) - ICD9: 250.00, ICD10: E11.9 Controlled. - Continue current medications 4. Essential hypertension, benign - ICD9: 401.1, ICD10: I10 - good control - Continue current medication(s) - Goal of BP <130/80 Rhett Dorsey MD CNOV Observed: 04/15/2018 Status: COMPLETED Source: [facility] 3:20 PM [facility] REPOSITORY Office Visit (FAMPWS) LAURYN BRUMFIELD ([id number]) 1950 F Date Time Provider Department 04/15/18 3:20 PM RHETT DORSEY FAMPWS During your visit today, we recorded the following information about you: Pulse Respiration Blood pressure Weight 72/minute 18/minute 132/78 98.9 kg Leydapadma Jo LUIS ANGEL 04/15/2018 3:51 PM Signed HOSPITAL/ER FOLLOW UP: Reason for visit: black stool and abd pain Which facility: [facility] Date of visit: 03/31/18 Discharge: 04/01/18 Diagnosis: Upper GI bleed Testing done: EGD with biopsy saw Dr Miller for follow up yesterday and was told to just follow up in 1 year Treatment given: pantoprazole 40 mg twice per day Current symptoms: stools are back to normal still with minimal discomfort in her stomach Retired at the end of Mar and insurance isn't as good now so is trying to cut back on medications. Patient asking about repeat colonoscopy? Had sigmoidoscopy done 2014 and health maintenance has a 10 year modifier. Rhett Dorsey MD 04/15/2018 4:05 PM Signed Patient presents with: Hospital F/U HPI: Patient presents today for office visit for follow up. Nursing Notes: Leyda Jo LUIS ANGEL 04/15/2018 3:51 PM Signed HOSPITAL/ER FOLLOW UP: Reason for visit: black stool and abd pain Which facility: [facility] Date of visit: 03/31/18 Discharge: 04/01/18 Diagnosis: Upper GI bleed Testing done: EGD with biopsy saw Dr Miller for follow up yesterday and was told to just follow up in 1 year Treatment given: pantoprazole 40 mg twice per day Current symptoms: stools are back to normal still with minimal discomfort in her stomach Retired at the end of Mar and insurance isn't as good now so is trying to cut back on medications. Patient asking about repeat colonoscopy? Had sigmoidoscopy done 2014 and health maintenance has a 10 year modifier. No further black stools. Discussed avoiding nsiads. No gi issues. No heartburn. No bloody or black stools. No chest pain or shortness of breath. Discussed that had colonoscopy in 2009 and flex sig in 2014. (declined colonoscopy then-done for diarrhea) MEDICATIONS: Current Outpatient Prescriptions: armodafinil (NUVIGIL) 250 mg tab Take 250 mg by mouth once daily. atenolol (TENORMIN) 50 mg tablet Take 1.5 tablets by mouth twice daily. FLUoxetine (PROZAC) 20 mg capsule TAKE 4 CAPSULES BY MOUTH ONCE DAILY. (Patient taking differently: Take 40 mg by mouth twice daily. TAKE 4 CAPSULES BY MOUTH ONCE DAILY. ) gabapentin (NEURONTIN) 100 mg capsule Take 100 mg by mouth three times daily. hydroCHLOROthiazide (HYDRODIURIL, ESIDRIX) 25 mg tablet Take 1 tablet by mouth once daily. losartan (COZAAR) 100 mg tablet TAKE 1 TABLET BY MOUTH ONCE DAILY. metFORMIN (GLUCOPHAGE) 500 mg tablet TAKE 1 TABLET BY MOUTH TWICE DAILY WITH MEALS. spironolactone (ALDACTONE) 25 mg tablet Take 1 tablet by mouth once daily. traZODone (DESYREL) 50 mg tablet TAKE 1 TABLET BY MOUTH DAILY AT BEDTIME. aspirin(ADULT LOW DOSE ASPIRIN 81 MG TAB, DELAYED RELEASE) Take one(1) tablet daily. benzonatate (TESSALON PERLE) 100 mg capsule Take 1 capsule by mouth three times daily as needed. (Patient not taking: Reported on 11/04/2017 ) CALCIUM 600 + D 600 MG-125 UNIT TAB Take one(1) tablet daily. colestipol (COLESTID) 1 gram tablet TAKE 1 TABLET BY MOUTH ONCE DAILY. lancets (ONE TOUCH DELICA) 33 gauge misc USE INSTRUCTED multivitamins(DAILY MULTIVITAMIN TAB) Take one(1) tablet daily. naproxen (NAPROSYN) 500 mg tablet TAKE 1 TABLET BY MOUTH TWICE A DAY WITH MEALS NEEDED ONETOUCH DELICA LANCETS 30 gauge misc TEST BLOOD SUGAR 2-3 TIMES DAILY ONETOUCH VERIO test strip TEST BLOOD SUGAR(S) 2 TO 3 TIMES DAILY. DX: TYPE 2 DM - CONTROLLED E11.9 INSULIN: NO orphenadrine ER (NORFLEX) 100 mg tablet TAKE 1 TABLET BY MOUTH EVERY DAY (Patient not taking: Reported on 04/15/2018) penciclovir (DENAVIR) 1 % cream Apply 1 application to affected area twice daily as needed. (Patient not taking: Reported on 04/15/2018 ) RESTASIS MULTIDOSE 0.05 % drop No current facility-administered medications for this visit. ALLERGIES: ALLERGIES Allergen Reactions - Metal [Other] Rash, Itching - Nickel Rash, Itching - Amlodipine Swelling - Lisinopril Cough PAST MEDICAL HISTORY Diagnosis Date - Cardiomyopathy in other diseases classified elsewhere echo 2008-normal EF - Complication of anesthesia - Diverticulosis of colon (without mention of hemorrhage) - Esophageal reflux Gastroesophageal reflux - Internal hemorrhoids without mention of complication - Mental disorder - Myalgia and myositis, unspecified Fibromyalgia (myalgia and myositis) - PMH - PAST MEDICAL HISTORY OF pre diabetic - Sleep apnea - Unspecified essential hypertension Essential hypertension PAST SURGICAL HISTORY Procedure Laterality Date - COLONOSCOP W/ OR W/O [facility] SPEC 1999 Colonoscopy-due 2009 - COLONOSCOP W/ OR W/O [facility] SPEC 01/29/10 - DENTAL SURGERY PROCEDURE 04/2010 laser top right teeth - EGD 04/01/2018 Dr Miller - EGD W/O OR W/BRUSH/WASH 05/2003 EGD - 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 - Stroke Mother - Alzheimer's Disease Father - Osteoporosis Sister - Thyroid Daughter - Cancer Brother kidney ca./renal cell - Coronary Artery Disease Brother OR, has a bad disc is the same as above - Cancer Maternal Grandmother liver ca. 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 Hasn't smoked since she was 48yrs. Alcohol use: No Drug use: No Sexual activity: No Reviewed current medications, allergies, past medical history, surgical history, family history and social history today. REVIEW OF SYSTEMS All other reviewed and negative other than HPI. HEALTH MAINTENANCE: Reviewed health maintenance issues today and recommended the following in detail. BP CONTROLLED (<130/80) due on 01/10/1966 DTAP,TDAP,TD(2 - Td) due on 01/01/2017 VITALS: BP 132/78 Pulse 72 Resp 18 Wt 98.9 kg (218 lb) BMI 36.10 kg/m? Last 4 Encounter Wt Readings: Date: Wt: 04/15/2018 98.9 kg (218 lb) 02/10/2018 101.2 kg (223 lb) 01/09/2018 95.7 kg (211 lb) 12/02/2017 98.9 kg (218 lb) PHYSICAL EXAMINATION: General appearance: Well appearing, alert, in no acute distress, well-hydrated, well nourished. Skin: Skin color, texture, turgor normal, no suspicious rashes or lesions Head: Normocephalic, no masses, lesions, tenderness or abnormalities Lungs: lungs clear to auscultation. No wheezing, rhonchi, rales Heart: RRR without murmur, gallop, or rubs. No ectopy Abdomen: Normal abdominal exam, Abdomen soft, non-tender. Bowel sounds normal. No masses, organomegaly Extremities: No deformities, edema, skin discoloration, clubbing or cyanosis. Good capillary refill. Musculoskeletal: No joint swelling, deformity, or tenderness Peripheral pulses: Normal PSYCH:Affect normal. Normal speech. Normal eye contact ASSESSMENT/PLAN: 1. Gastrointestinal hemorrhage, unspecified gastrointestinal hemorrhage type - ICD9: 578.9, ICD10: K92.2 (primary diagnosis) - continue meds. Avoid nsiads. Call if any issues. - PANTOPRAZOLE 40 MG TABLET,DELAYED RELEASE - CBC + DIFF 2. Inflammatory polyarthritis (HCC) - ICD9: 714.9, ICD10: M06.4 - stable. 3. Type 2 diabetes mellitus without complication, without long-term current use of insulin (HCC) - ICD9: 250.00, ICD10: E11.9 Controlled. - Continue current medications 4. Essential hypertension, benign - ICD9: 401.1, ICD10: I10 - good control - Continue current medication(s) - Goal of BP <130/80 Rhett Dorsey MD Referring Provider: SELF [200] Allergies As of Date: 04/15/2018 Noted Allergy Reaction metal [Other] 01/01/2007 2 - Rash 9 - Itching NICKEL 01/01/2007 2 - Rash 9 - Itching AMLODIPINE 04/07/2012 7 - Swelling LISINOPRIL 11/25/2011 3 - Cough Date Reviewed: 04/15/2018 Reviewed by: Leyda Jo LPN - Fully Assessed Reason for Visit: Hospital F/U [57] Primary Visit Diagnosis:Gastrointestinal hemorrhage, unspecified gastrointestinal hemorrhage type [K92.2] Other Visit Diagnoses:Inflammatory polyarthritis (HCC) [M06.4] Type 2 diabetes mellitus without complication, without long-term current use of insulin (HCC) [E11.9] Essential hypertension, benign [I10] Order(s):pantoprazole DR (PROTONIX) 40 mg tabletTake 1 tablet by mouth twice daily. Take on empty stomach, 1/2 hr before meal.Disp: Rfl: CBC + DIFF [SQCBCDIF] Order #: [id number] FUTURE Prescriptions as of 04/15/2018 Sig: ARMODAFINIL 250 MG TABLET Take 250 mg by mouth once milton* ATENOLOL 50 MG TABLET Take 1.5 tablets by mouth twi* FLUOXETINE 20 MG CAPSULE TAKE 4 CAPSULES BY MOUTH ONCE* Patient taking differently: Take 40 mg by mouth twice milton* GABAPENTIN 100 MG CAPSULE Take 100 mg by mouth three ti* HYDROCHLOROTHIAZIDE 25 MG TAB* Take 1 tablet by mouth once d* LOSARTAN 100 MG TABLET TAKE 1 TABLET BY MOUTH ONCE D* METFORMIN 500 MG TABLET TAKE 1 TABLET BY MOUTH TWICE * SPIRONOLACTONE 25 MG TABLET Take 1 tablet by mouth once d* TRAZODONE 50 MG TABLET TAKE 1 TABLET BY MOUTH DAILY * BENZONATATE 100 MG CAPSULE Take 1 capsule by mouth three* Patient not taking: Reported on 11/04/2017 CALCIUM 600 + D(3) 600 MG-125* Take one(1) tablet daily. COLESTIPOL 1 GRAM TABLET TAKE 1 TABLET BY MOUTH ONCE D* LANCETS 33 GAUGE USE INSTRUCTED DAILY MULTIVITAMIN TABLET Take one(1) tablet daily. ONETOUCH DELICA LANCETS 30 GA* TEST BLOOD SUGAR 2-3 TIMES DA* ONETOUCH VERIO STRIPS TEST BLOOD SUGAR(S) 2 TO 3 TI* ORPHENADRINE CITRATE ER 100 M* TAKE 1 TABLET BY MOUTH EVERY * Patient not taking: Reported on 04/15/2018 PANTOPRAZOLE 40 MG TABLET,DEL* Take 1 tablet by mouth twice * PENCICLOVIR 1 % TOPICAL CREAM Apply 1 application to affect* Patient not taking: Reported on 04/15/2018 RESTASIS MULTIDOSE 0.05 % EYE* Problem List As Of Date 04/15/2018 Noted Resolved BENIGN HYPERTENSION [I10] INVALID FOR* Myalgia and myositis, unspecified [[id number]] INVALID FOR*10/07/2016 Insomnia [G47.00] INVALID FOR* ESOPHAGEAL REFLUX [K21.9] INVALID FOR* Actinic keratosis [L57.0] INVALID FOR*07/04/2014 Inflamed seborrheic keratosis [L82.0] INVALID FOR*07/04/2014 Other chronic 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 radiation*INVALID FOR*07/04/2014 SOLAR LENGINES///DYSCHROMIA OTHER [L81.9] INVALID FOR*07/04/2014 Hyperlipidemia [E78.5] INVALID FOR* Sleep apnea [G47.30] INVALID FOR* More... Glucose intolerance (pre-diabetes) [R73.03] INVALID FOR*09/09/2013 Arthritis of knee, degenerative [M17.10] INVALID FOR*10/07/2016 Type 2 diabetes mellitus without complication (*INVALID FOR* Spinal stenosis of lumbar region [M48.061] INVALID FOR* Primary osteoarthritis of left knee [M17.12] INVALID FOR* Pain in left knee [M25.562] INVALID FOR*10/07/2016 Marital conflict [Z63.0] INVALID FOR*10/07/2016 Adjustment disorder with mixed anxiety and depr*INVALID FOR* Obesity (BMI 30.0-34.9) [E66.9] INVALID FOR* Inflammatory polyarthritis (HCC) [M06.4] INVALID FOR* More... Family history of ischemic heart disease [Z82.4*INVALID FOR* More... Obesity (BMI 35.0-39.9 without comorbidity) [E6*INVALID FOR* Aortic valve sclerosis [I35.8] INVALID FOR* Asthma with chronic obstructive pulmonary disea*INVALID FOR* More... Visit Notes: >> Leyda Jo LUIS ANGEL FriApr 15, 2018 3:32 PM Status: Signed HOSPITAL/ER FOLLOW UP: Reason for visit: black stool and abd pain Which facility: [facility] Date of visit: 03/31/18 Discharge: 04/01/18 Diagnosis: Upper GI bleed Testing done: EGD with biopsy saw Dr Miller for follow up yesterday and was told to just follow up in 1 year Treatment given: pantoprazole 40 mg twice per day Current symptoms: stools are back to normal still with minimal discomfort in her stomach Retired at the end of Mar and insurance isn't as good now so is trying to cut back on medications. Patient asking about repeat colonoscopy? Had sigmoidoscopy done 2014 and [employer] maintenance has a 10 year modifier. Prescriptions ordered this encounter Disp Refills Start End PANTOPRAZOLE 40 MG TABLET,DELAYED RE* 04/15/2018 Class: Med Update Route: ORAL Sig: Take 1 tablet by mouth twice daily. Take on empty stomach, 1/2 hr before meal. Medications Discontinued During This Encounter naproxen (NAPROSYN) 500 mg tablet 180 * 1 01/06/2018 04/15/2018 Sig: TAKE 1 TABLET BY MOUTH TWICE A DAY WITH MEALS NEEDED Disc: Discontinued by another Health Care Provider aspirin(ADULT LOW DOSE ASPIRIN 81 MG* 0 04/26/2008 04/15/2018 Class: OTC Route: ORAL Sig: Take one(1) tablet daily. Disc: Discontinued by another Health Care Provider Encounter Status:Closed by RHETT DORSEY MD on 04/15/18 CARDIOLOGY VISIT Observed: 04/14/2018 Status: F Source: [facility]ASS REPORT 4:13 PM [facility] [place] [facility] [address] [place], [place] [id number] OFFICE VISIT Date of Service: 04/14/18 MR#: [id number] Acct: [id number] Name: LAURYN BRUMFIELD Rep #: [id number] : 1950 Provider: Hosea Aguilera MD Age/Sex: 68/F Location: [facility] [place] Status: Signed HPI HPI Chief Complaint: Follow-up visit Details: LAURYN BRUMFIELD, is a 68 F who presents to the office today for a follow-up visit. She is a lady with a history of hypertension, diabetes mellitus and a significant family history of coronary artery disease. She had previously been on aspirin and developed a GI bleed and aspirin has been discontinued and since then she is done well. She denies any chest pain or shortness of breath or paroxysmal nocturnal dyspnea or pedal edema. You do remember that she had undergone a pharmacologic stress test in March 2017 which showed preserved ejection fraction of 70% and no evidence of ischemia. Her echocardiogram also demonstrated preserved ejection fraction of 55 with no wall motion abnormalities present. Her physical exam today demonstrates clear lung monae regular rate and rhythm no pedal edema. Intake Vital Signs04/14/18 Height 5 ft 5 in 04/14/18 Weight: 212 lb 04/14/18 Body Mass Index (BMI) 35.2 04/14/18 Blood Pressure 124/60 H H 04/14/18 Respiratory Rate 18 04/14/18 Pulse Rate 66 Intake Visit Reasons: 7 M FU Allergies amlodipine Adverse Reaction (Severe, Verified 04/14/18 15:45) Unknown nickel Adverse Reaction (Severe, Verified 04/14/18 15:45) Unknown lisinopril Adverse Reaction (Mild, Verified 04/14/18 15:45) Other - cough Medications armodafinil 250 mg tablet 250 mg PO DAILY PRN tab 09/09/17 [History Confirmed 04/14/18] colestipol 1 gram tablet 1 g PO DAILY tab 09/09/17 [History Confirmed 04/14/18] fluoxetine 20 mg capsule 80 mg PO QHS 09/09/17 [History Confirmed 04/14/18] gabapentin 100 mg capsule 100 mg PO TID cap 05/08/18 [History Confirmed 04/14/18] hydrochlorothiazide 25 mg tablet 25 mg PO DAILY 09/09/17 [History Confirmed 04/14/18] losartan 100 mg tablet 100 mg PO DAILY 09/09/17 [History Confirmed 04/14/18] orphenadrine citrate ER 100 mg tablet,extended release 100 mg PO QDAY PRN tab 09/09/17 [History Confirmed 04/14/18] trazodone 50 mg tablet 50 mg PO QHS tab 09/09/17 [History Confirmed 04/14/18] atenolol 50 mg tablet 50 mg PO BID tab 09/12/17 [History Confirmed 04/14/18] cyclosporine 0.05 % eye drops in a dropperette 1 drp OPHTHALMIC Q12H PRN 10/30/17 [History Confirmed 04/14/18] metformin 500 mg tablet 500 mg PO BIDCM 10/30/17 [History Confirmed 04/14/18] spironolactone 50 mg tablet 25 mg PO DAILY tab 10/30/17 [History Confirmed 04/14/18] Multivitamins,Therapeutic [Multivitamin] 1 tab PO DAILY 03/31/18 [History Confirmed 04/14/18] Penciclovir [Denavir] 1 applicatio TP BID PRN 03/31/18 [History Confirmed 04/14/18] Pantoprazole Sodium [Protonix] 40 mg PO DAILY #60 tab 04/01/18 [Rx Confirmed 04/14/18] PFSH Medical History Essential (primary) hypertension (Chronic) Upper GI bleed (Resolved) Restrictive lung disease (Chronic) Dyspnea on exertion (Chronic) Hyperlipidemia (Chronic) Pericardial effusion (noninflammatory) (Chronic) Nonrheumatic mitral valve insufficiency (Chronic) Non-rheumatic tricuspid valve insufficiency (Chronic) Acoustic neuroma (Chronic) Dyspnea on exertion (Acute) Hemoptysis (Acute) Skin cancer (Acute) history of eye implant (Acute) Adjustment disorder with mixed anxiety and depressed mood (Chronic) Aortic valve sclerosis (Chronic) Bacterial sinusitis (Chronic) Esophageal reflux (Chronic) Inflammatory polyarthritis (Chronic) Insomnia (Chronic) Obesity (Chronic) Primary osteoarthritis of left knee (Chronic) Sleep apnea (Chronic) Spinal stenosis of lumbar region (Chronic) Type 2 diabetes mellitus (Chronic) Abnormal findings on diagnostic imaging of heart and coronary circulation (Inactive) Encounter for long-term current use of high risk medication (Inactive) Surgical History H/O brain surgery (Resolved) H/O foot surgery (Resolved) Family History Brother CAD (coronary artery disease) Cancer Mother CVA (cerebral vascular accident) Father Alzheimers disease Grandmother Cancer Diabetes Social History household members: none housing: house current occupational status: employed current occupation: [employer] pets and animals: Yes pets and animals: dog(s) Smoking Status: Former smoker quit date: 05/05/98 pack-years: 35 how long ago did patient quit smokin second hand exposure: Yes alcohol intake: never substance use type: does not use caffeine: Yes Type: coffee Number of servings: 2 what type of physical activity do you participate in: none ROS Const Const: Positive for fatigue; negative for weakness, difficulty sleeping, frequent falls, excessive sweating or headache(s) Eyes Eyes: Negative for loss of peripheral vision, transient loss of vision, blurry vision, tunnel vision or double vision ENT ENT: Negative for headache(s), dizziness, Nosebleed/epistaxis or balance problems Cardio Chest Pain: No Palpitations: No Edema: None Muscle aches with walking: None Resp Respiratory: Negative for SOB with activity, SOB at rest, SOB orthopnea\SOB lying down, paroxysmal nocturnal dyspnea or Cough GI GI: Negative nausea, heartburn, black,tarry stools or vomiting : Negative for hematuria Musc Musc: Negative for balance problems, muscle aches/ myalgia, muscle weakness or joint pain Skin Skin: Negative non-healing lesions, unusual bruising or rash Neuro Neuro: Negative for weakness, frequent falls, headache(s), blurry vision, double vision, dizziness, lightheadedness, orthostatic symptoms, near syncope, syncope or lack of coordination Ricardo Hematologic/Lymphatic: Negative for easy bruising or easy bleeding Endo Endo: Positive for fatigue; negative for excessive sweating or increased thirst/drinking Psych Psych: Negative for anxiety or depression Allergy Allergy/Immunology: Negative for hives, Negative for rash Cardiology Exam Const Appearance: cooperative, healthy appearing, well developed, well groomed and no acute distress Nutritional Appearance: well nourished and average body habitus Orientation: alert, awake and oriented x3 Head Head: normal to inspection, normocephalic and atraumatic Ears: hearing grossly normal bilaterally and external ears normal Nose: external nose normal, nasal mucous membranes and turbinates normal, nares normal, septum normal, no nasal discharge Face and Sinus: face symmetric Mouth: oral mucosae normal, tongue normal, oropharynx normal and moist mucous membranes Teeth and gingiva: dentition normal Throat: posterior oropharynx normal, tonsils normal and uvula midline Eyes General: appearance normal, both eyes and all related structures Eyelids: eyelids normal Conjunctivae: conjunctivae normal Pupils: PERRL, normal by confrontation and accommodation normal EOM: EOM intact bilaterally Neck Neck: normal visual inspection, trachea midline and no JVD JVD: +5 Carotids: normal carotid upstroke and bounding pulses Chest Chest inspection: normal inspection of the chest, symmetric chest movement and normal respiratory effort Auscultation: Bilateral: Clear to Auscultation Cardio Palpation: normal PMI Rate: regular rate Rhythm: regular rhythm Heart sounds: S1 normal, S2 normal and normal, physiologic split S2; negative rub, gallop or murmur GI GI: normal to inspection, soft, no hepatosplenomegaly and bowel sounds present Neuro General: alert, awake, oriented x3, no focal sensory deficit, gait normal and moves all extremities Skin Skin: no rashes or lesions noted Extremities Pulses: Normal: Right Femoral Pulse, Left Femoral Pulse, Right Dorsalis Pedis Pulse, Left Dorsalis Pedis Pulse, Right Posterior Tibial Pulse, Left Posterior Tibial Pulse, Right Radial Pulse, Left Radial Pulse Lower Extremity Edema: None: Bilateral Musculoskel Musculoskeletal: No joint tenderness Psych Psychological: normal affect Assessment AND Plan 1. Essential (primary) hypertension I10 Plan Her blood pressure appears to be under good control at this time and the plan will be for her to remain on the spironolactone, losartan, hydrochlorothiazide, and atenolol. 2. Pure hypercholesterolemia E78.00 Plan She does have a history of hyperlipidemia and she will be following with you and a lipid profile will be obtained as appropriate. Overall she continues to do well and no medication changes will be made from our standpoint. Plan Detail Follow Up 1 Year (khangr) Coding Level of Care Code Off vis,est,level 3 Diagnoses Essential (primary) hypertension I10 Pure hypercholesterolemia E78.00 Hyperlipidemia type: pure hypercholesterolemia Coding Level of Care Code Off vis,est,level 3 Diagnoses Essential (primary) hypertension I10 Pure hypercholesterolemia E78.00 Hyperlipidemia type: pure hypercholesterolemia 04/14/18 1613 <Electronically signed by Hosea Aguilera MD> Date Hosea Aguilera MD Cosigner Signature: Date (if applicable) CC: Rhett Dorsey MD SURGERY VISIT REPORT Observed: 04/10/2018 Status: F Source: [place] 9:04 AM [facility] [address] [place] [address] [address] [place] [address] OFFICE VISIT Date of Service: 04/08/18 MR#: [id number] Acct: [id number] Name: LAURYN BRUMFIELD Rep #: [id number] : 1950 Provider: Fred Miller MD Age/Sex: 68/F Location: [facility] Status: Signed Intake Vital Signs04/08/18 Height 5 ft 5 in 04/08/18 Weight: 217 lb Intake Visit Reasons: Hosp FU Upper GI Bleed Chief Complaint: 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 Accompanied by: None Is patient in pain?: No Allergies amlodipine Adverse Reaction (Severe, Verified 03/31/18 12:08) Unknown nickel Adverse Reaction (Severe, Verified 03/31/18 12:08) Unknown lisinopril Adverse Reaction (Mild, Verified 03/31/18 12:08) Other - cough Medications armodafinil 250 mg tablet 250 mg PO DAILY PRN tab 09/09/17 [History Confirmed 03/31/18] colestipol 1 gram tablet 1 g PO DAILY tab 09/09/17 [History Confirmed 03/31/18] fluoxetine 20 mg capsule 80 mg PO QHS 09/09/17 [History Confirmed 03/31/18] gabapentin 100 mg capsule 100 mg PO TID cap 09/09/17 [History Confirmed 03/31/18] hydrochlorothiazide 25 mg tablet 25 mg PO DAILY 09/09/17 [History Confirmed 03/31/18] losartan 100 mg tablet 100 mg PO DAILY 09/09/17 [History Confirmed 03/31/18] orphenadrine citrate ER 100 mg tablet,extended release 100 mg PO QDAY PRN tab 09/09/17 [History Confirmed 03/31/18] trazodone 50 mg tablet 50 mg PO QHS tab 09/09/17 [History Confirmed 03/31/18] atenolol 50 mg tablet 50 mg PO BID tab 09/12/17 [History Confirmed 03/31/18] cyclosporine 0.05 % eye drops in a dropperette 1 drp OPHTHALMIC Q12H PRN 10/30/17 [History Confirmed 03/31/18] metformin 500 mg tablet 500 mg PO BIDCM 10/30/17 [History Confirmed 03/31/18] spironolactone 50 mg tablet 25 mg PO DAILY tab 10/30/17 [History Confirmed 03/31/18] Multivitamins,Therapeutic [Multivitamin] 1 tab PO DAILY 03/31/18 [History Confirmed 03/31/18] Penciclovir [Denavir] 1 applicatio TP BID PRN 03/31/18 [History Confirmed 03/31/18] Pantoprazole Sodium [Protonix] 40 mg PO DAILY #60 tab 04/01/18 [Rx] PFSH Medical History Dyspnea on exertion (Chronic) Encounter for long-term current use of high risk medication (Chronic) Hypertension (Chronic) Hyperlipidemia (Chronic) Abnormal findings on diagnostic imaging of heart and coronary circulation (Chronic) Pericardial effusion (noninflammatory) (Chronic) Nonrheumatic mitral valve insufficiency (Chronic) Non-rheumatic tricuspid valve insufficiency (Chronic) Acoustic neuroma (Chronic) Benign hypertension (Chronic) Dyspnea on exertion (Acute) Hemoptysis (Acute) Skin cancer (Acute) history of eye implant (Acute) Adjustment disorder with mixed anxiety and depressed mood (Chronic) Aortic valve sclerosis (Chronic) Bacterial sinusitis (Chronic) Esophageal reflux (Chronic) Inflammatory polyarthritis (Chronic) Insomnia (Chronic) Obesity (Chronic) Primary osteoarthritis of left knee (Chronic) Sleep apnea (Chronic) Spinal stenosis of lumbar region (Chronic) Type 2 diabetes mellitus (Chronic) Surgical History H/O brain surgery (Resolved) H/O foot surgery (Resolved) Family History Brother CAD (coronary artery disease) Cancer Mother CVA (cerebral vascular accident) Father Alzheimers disease Grandmother Cancer Diabetes Social History household members: none housing: house current occupational status: employed current occupation: [employer] pets and animals: Yes pets and animals: dog(s) Smoking Status: Former smoker quit date: 05/05/98 pack-years: 35 how long ago did patient quit smokin second hand exposure: Yes alcohol intake: never substance use type: does not use caffeine: Yes Type: coffee Number of servings: 2 what type of physical activity do you participate in: none HPI HPI HPI: LAURYN BRUMFIELD, is a 68 F who presents to the office today for follow-up from a hospitalization which was on 03/31/2018. At that time she had about a 1-1/2-week history of crampy burning upper abdominal pain she noticed that she had a large melanotic stool she was subsequently admitted to the hospital she was noted to have a positive fecal occult blood test. I performed an upper endoscopy on her at that time and did a biopsy of her stomach which did show some minimal chronic inflammation and was H. pylori negative. She did have some linear erosions in the stomach. Her last colonoscopy was in January 12, 2010. Patient states that she has been having no further black stools no bleeding that she can recall on her abdomen is feeling improved ROS General General: Yes fatigue; no weight change, appetite, colon cancer, breast cancer or weakness HEENT HEENT: Yes eye surgery (implant right eye); no difficulty swallowing, eye injury, swollen glands or hoarseness Endo Endocrine: Yes diabetes mellitus; no thyroid disease, thyroid cancer, Hair loss, heat intolerance or cold intolerance Skin Skin: No rash or changing moles Breast Breast: No left breast lump, right breast lump, nipple discharge, breast pain, abnormal mammogram, abnormal US or breast enlargement Musc Musculoskeletal: Yes back problems and arthritis; no rheumatoid arthritis, gout or joint pain Cardio Cardiovascular: Yes high blood pressure; no murmur, pacemaker, heart disease, atrial fibrillation, heart attack, heart stent, palpitations, shortness of breat with exertion or chest pain Psych Psychiatric: Yes depression and anxiety; no hearing voices Resp Respiratory: Yes shortness of breath, Yes sleep apnea, No cough, No COPD, No asthma, No emphysema, No wheezing Gastro Gastrointestinal: Yes abdominal pain, No nausea or vomiting, No diarrhea, No constipation, Yes blood in stool, No acid reflux, No hemorrhoids, No ulcers, No gallbladder problem, Yes black,tarry stools (had last week) Additional Details: had last week Ricardo Hematologic: Yes blood thinners, No blood disorders, No bleeding, No anemia, No blood clots Neuro Neurologic: No system reviewed and no additional complaints, except as docu, No as per HPI, No abnormal walking, No abnormal hearing, No abnormal movements, No abnormal speech, No behavioral changes, No burning sensations, No confusion, No seizure-like activity, No unsteadiness, No dizziness, No localized weakness, No frequent falls, No headache(s), No lack of coordination, No loss of vision, No memory loss, No numbness, No other visual disturbances, No radiating pain, No restless legs, No sensory deficit, No fainting, No tingling, No tremor(s), No weakness, No other Exam Const General: well developed, no acute distress, well hydrated Orientation: oriented to person, oriented to place, oriented to time Chest Chest palpation AND inspection: normal inspection of the chest Breast Palpation: No nipple discharge Resp Effort AND Inspection: normal respiratory effort Auscultation: clear to auscultation bilaterally Percussion: percussion normal Cardio Rate: regular rate Rhythm: regular rhythm Heart Sounds: no murmurs GI Palpation: soft, no masses, no hepatosplenomegaly, nontender Rectal Exam: other Other: Rectal exam deferred. Assessment AND Plan Problems 1. Heme + stool R19.5 Plan At the present time she should remain on a proton pump inhibitor and think we need to do any further upper endoscopies on her. She is not due for her next colonoscopy until January 122019 she can follow-up with me on that date Coding Level of Care Code Off vis,est,level 2 Diagnoses Heme + stool R19.5 04/10/18 0904 <Electronically signed by Fred Miller MD> Date Fred Winkler Signature: Date (if applicable) CC: Rhett Dorsey MD 12 LEAD ELECTROCARDIOGRAM Observed: 04/03/2018 Status: F Source: [place] 2:07 PM [facility] [place] [facility] Cardiovascular Services [address] [place] [address] 12 Lead EKG 03/31/18 1612 MR#: [id number] Acct: [id number] Name: LAURYN BRUMFIELD Rep #: [id number] : 1950 68 From: Hosea Aguilera MD Attending Dr: Aristides Salazar MD Status: DIS KIKE Ordering Dr: Adair Tsang MD Date: 03/31/18 Location: [facility] Sex: F C Admitted: 03/31/18 Test Reason : Blood Pressure : / mmHG Vent. Rate : 071 BPM Atrial Rate : 071 BPM P-R Int : 182 ms QRS Dur : 092 ms QT Int : 420 ms P-R-T Axes : 041 -13 024 degrees QTc Int : 456 ms Normal sinus rhythm Possible Left atrial enlargement Borderline ECG When compared with ECG of 28-JUN-2011 21:34, No significant change was found Confirmed by JODIE WALKER, HOSEA ([id number]), marketing editor FREDRICK VORA ([id number]) on 04/03/2018 2:06:32 PM Referred By: Adair Tsang Confirmed By:HOSEA AGUILERA MD 04/03/18 1406 Date Hosea Aguilera MD CC: Aristides Salazar MD; Adair Tsang MD; Rhett Dorsey MD Signed DISCHARGE SUMMARY Observed: 04/01/2018 Status: F Source: J[place] 4:27 PM [facility] [place] [facility] Medical Records Department [address] [place] [address] Discharge Summary 04/01/18 1620 MR#: [id number] Acct: [id number] Name: LAURYN BRUMFIELD Rep #: [id number] : 1950 68 From: Aristides Salazar MD PCP: Rhett Dorsey MD Status: ADM IN Y Location: [place] [address] Discharge Date and Diagnosis - Problem List Patient Problems: Active and Suspected Problems (Last Reviewed 03/05/18 @ 07:03 by Peyton Jara) Upper GI bleed (Acute) Date of Admission: 03/31/18 Date of Discharge: 04/01/18 - Primary Discharge Diagnosis Active and Suspected Problems (Last Reviewed 03/05/18 @ 07:03 by Peyton Jara) Upper GI bleed (Acute) - Secondary Discharge Diagnosis Chronic Problems (Last Reviewed 03/05/18 @ 07:03 by Peyton Jara) Restrictive lung disease (Chronic) Dyspnea on exertion (Chronic) Encounter for long-term current use of high risk medication (Chronic) Hypertension (Chronic) Hyperlipidemia (Chronic) Abnormal findings on diagnostic imaging of heart and coronary circulation (Chronic) Pericardial effusion (noninflammatory) (Chronic) Nonrheumatic mitral valve insufficiency (Chronic) Non-rheumatic tricuspid valve insufficiency (Chronic) Acoustic neuroma (Chronic) Benign hypertension (Chronic) Hospital Course and Treatment Imaging Results: None Consults: General Surgery Operations: None Procedures: EGD - Impression: - Z-line regular, 40 cm from the incisors. No specimens collected. - Normal esophagus. - Non-bleeding erosive gastropathy. Biopsied. - Normal examined duodenum. No specimens collected. Recommendation: - [facility]. - Resume previous diet. - Continue present medications. - Await pathology results. - Repeat upper endoscopy at appointment to be scheduled for surveillance. - Return to my office in 1 week. 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 She has abdominal cramps that is started in epigastrium and was diffuse moved to lower abdomen but was mild in intensity. She denies nausea/vomiting/hematemesis. She denies previous history of GI bleed. She takes baby aspirin. She had EGD and colonoscopy in the past but many years ago and does not remember the details but said it was okay. In ED, occult blood was positive. H AND H 14.2/39.9. Platelet count 189,000. K4.0. BUN/creatinine 16/0.6. Vital Signs - 24 hr 04/01/18 15:14 77 Hospital Course: 1. UGI bleed - She had an asymptomatic episode of melena and presented with normal hemoglobin. She was taken for an EGD on the discharge which demonstrated multiple erosions without evidence of bleeding. Discussed that the safest course would be to stay the night for further observation and repeat labs, however she is adamant about going home. I will discharge her with the understanding that she needs to return if she has any symptoms. She will be given a PPI bid and will follow-up with general surgery. She is to stop her aspirin until she is seen in follow-up and she is to stop her naproxen 2. Her other diagnoses were evaluated and her home medications were continued where appropriate Patient Problems: Active and Suspected Problems (Last Reviewed 03/05/18 @ 07:03 by Peyton Jara) Upper GI bleed (Acute) - Physical Exam Vital Signs Temp Pulse Resp BP Pulse Ox 98.4 F 77 18 158/77 H 93 04/01/18 13:10 04/01/18 15:14 04/01/18 13:10 04/01/18 13:10 04/01/18 13:30 Oxygen Flow Rate (L/min) 2 Oxygen Delivery Method Room Air Weight: 218 lb 8.002 oz Body Mass Index (BMI) 36.3 Intake and Output for Last 24 Hours Intake Total 760 / 760 2729 / 2729 Balance 760 / 760 2729 / 2729 Microbiology Past 72 Hours 03/31/18 12:25 Stool Occult Blood (HOWARD) - Final Stool Occult Blood Positive Laboratory Tests Past 24 Hrs WBC 6.5 RBC 4.46 Hgb 13.3 Hct 38.5 MCV 86.3 MCH 29.8 MCHC 34.5 RDW 13.3 POC Glucose POC Glucose 117 H 156 H 187 H POC Glucose 177 H Discharge Activity: No Restrictions Call your doctor if you observe: Shortness of breath, Dizziness, Fainting spells, Chest pain Home Medications: Medications to take at Discharge armodafinil 250 mg tablet 250 mg PO DAILY PRN tab 09/09/17 colestipol 1 gram tablet 1 g PO DAILY tab 09/09/17 fluoxetine 20 mg capsule 80 mg PO QHS 09/09/17 gabapentin 100 mg capsule 100 mg PO TID cap 09/09/17 hydrochlorothiazide 25 mg tablet 25 mg PO DAILY 09/09/17 losartan 100 mg tablet 100 mg PO DAILY 09/09/17 orphenadrine citrate ER 100 mg tablet,extended release 100 mg PO QDAY PRN tab 09/09/17 trazodone 50 mg tablet 50 mg PO QHS tab 09/09/17 atenolol 50 mg tablet 50 mg PO BID tab 09/12/17 cyclosporine 0.05 % eye drops in a dropperette 1 drp OPHTHALMIC Q12H PRN 10/30/17 metformin 500 mg tablet 500 mg PO BIDCM 10/30/17 spironolactone 50 mg tablet 25 mg PO DAILY tab 10/30/17 Multivitamins,Therapeutic [Multivitamin] 1 tablet PO DAILY 03/31/18 Penciclovir [Denavir] 1 applicatio TP BID PRN 03/31/18 Pantoprazole Sodium [Protonix] 40 mg PO BID #60 tablet 04/01/18 Following Prescrptions Were Given to Patient: Pantoprazole Sodium [Protonix] 40 mg PO BID #60 tablet Primary Care Physician: Rhett Dorsey MD [Primary Care Provider] - Please follow up with your Primary Care Physician in: in 3- 5 days Please Follow Up With: Fred Miller MD When: In 1 week Disposition: Home Minutes spent on discharge:: 35 Patient Condition:: Good Medical Necessity - Tobacco Use Smoking Status: Former smoker Tobacco Use: Cigarettes Meaningful Use Info Meaningful Use Diagnoses (Choose all that apply): None applicable Code Visit Inpatient E AND M: 00306 Disch Hosp 04/01/18 2497 <Electronically signed by Aristides Salazar MD> Date Aristides Salazar MD Cosigner Signature (if applicable): Date CC: Aristides Salazar MD; Rhett Dorsey MD Signed DISCHARGE INSTRUCTION Observed: 04/01/2018 Status: F Source: [place] 4:20 PM [facility] [place] [facility] Medical Records Department [address] [place] [address] Instructions for Home/Discharge Instructions 04/01/18 1619 MR#: [id number] Acct: [id number] Name: LAURYN BRUMFIELD Rep #: [id number] : 1950 68 From: Aristides Salazar MD PCP: Rhett Dorsey MD Status: ADM IN - Discharge Diagnoses Current Active Problems: Current Active and Chronic Problems (Last Reviewed 03/05/18 @ 07:03 by Peyton Jara) Upper GI bleed (Acute) You will use the following diet at home:: Calorie/Carbohydrate Controlled (specify 1200, 1400, etc) Your food should be the consistency of: Regular Your liquids should be the consistency of: Regular/Thin Discharge Activity: No Restrictions Call your doctor if you observe: Shortness of breath, Dizziness, Fainting spells, Chest pain Allergies/Adverse Reactions: Allergies amlodipine Adverse Reaction (Severe, Verified 03/31/18 12:08) Unknown nickel Adverse Reaction (Severe, Verified 03/31/18 12:08) Unknown lisinopril Adverse Reaction (Mild, Verified 03/31/18 12:08) Other - cough Medications to take at Discharge armodafinil 250 mg tablet 250 mg PO DAILY PRN tab 09/09/17 colestipol 1 gram tablet 1 g PO DAILY tab 09/09/17 fluoxetine 20 mg capsule 80 mg PO QHS 09/09/17 gabapentin 100 mg capsule 100 mg PO TID cap 09/09/17 hydrochlorothiazide 25 mg tablet 25 mg PO DAILY 09/09/17 losartan 100 mg tablet 100 mg PO DAILY 09/09/17 orphenadrine citrate ER 100 mg tablet,extended release 100 mg PO QDAY PRN tab 09/09/17 trazodone 50 mg tablet 50 mg PO QHS tab 09/09/17 atenolol 50 mg tablet 50 mg PO BID tab 09/12/17 cyclosporine 0.05 % eye drops in a dropperette 1 drp OPHTHALMIC Q12H PRN 10/30/17 metformin 500 mg tablet 500 mg PO BIDCM 10/30/17 spironolactone 50 mg tablet 25 mg PO DAILY tab 10/30/17 Multivitamins,Therapeutic [Multivitamin] 1 tablet PO DAILY 03/31/18 Penciclovir [Denavir] 1 applicatio TP BID PRN 03/31/18 Pantoprazole Sodium [Protonix] 40 mg PO BID #60 tablet 04/01/18 The following prescriptions were given: Pantoprazole Sodium [Protonix] 40 mg PO BID #60 tablet Primary Care Physician: Rhett Dorsey MD [Primary Care Provider] - Please follow up with your Primary Care Physician in: in 3- 5 days Test Results: Test results from this visit will be discussed in further detail at your follow-up appointment, if applicable. Please Follow Up With: Fred Miller MD When: In 1 week 04/01/18 1620 <Electronically signed by Aristides Salazar MD> Date Aristides Salazar MD CC: Fred Miller MD; Rhett Dorsey MD BEDSIDE GLUCOSE Collected: 04/01/2018 Status: F Source: [place] 1:24 PM [facility] [place] TYPE CODE TESTS RESULT OUT OF REFERENCE UNITS RANGE LAB L501.080 70-110 mg/dL High BEDSIDE GLU 117 Result Comment: MANAGEMENT OF PATIENT CARE PER NURSING PROTOCOL Performed By: #### L501.080 #### [facility] Point of Care [address] [place] [address] OPERATIVE REPORT - Observed: 04/01/2018 Status: F Source: [place] ENDOSCOPY 12:17 PM [facility] [place] [facility] Medical Records Department [address] [place] [address] Operative Report - Endoscopy MR#: [id number] Acct: [id number] Name: LAURYN BRUMFIELD Rep #: [id number] : 1950 68 From: Fred Miller MD PCP: Rhett Dorsey MD Status: ADM IN Patient Name: Lauryn Brumfield Procedure Date: 04/01/2018 11:50 AM Date of : 1950 Age: 68 Procedure: Upper GI endoscopy Indications: Upper abdominal pain, Melena Providers: Fred Miller MD Referring MD: Adair Tsang Medicines: See the Anesthesia note for documentation of the administered medications Patient Profile: This is a 68 year old female. Refer to note in patient chart for documentation of history and physical. Complications: No immediate complications. Procedure: Pre-Anesthesia Assessment: - Prior to the procedure, a History and Physical was performed, and patient medications and allergies were reviewed. The patient's tolerance of previous anesthesia was also reviewed. The risks and benefits of the procedure and the sedation options and risks were discussed with the patient. All questions were answered, and informed consent was obtained. Prior Anticoagulants: The patient has taken aspirin, last dose was 1 day prior to procedure. ASA Grade Assessment: III - A patient with severe systemic disease. After reviewing the risks and benefits, the patient was deemed in satisfactory condition to undergo the procedure. After obtaining informed consent, the endoscope was passed under direct vision. Throughout the procedure, the patient's blood pressure, pulse, and oxygen saturations were monitored continuously. The gastroscope was introduced through the mouth, and advanced to the second part of duodenum. The upper GI endoscopy was accomplished without difficulty. The patient tolerated the procedure well. Scope In: 12:06:18 PM Scope Out: 12:10:29 PM Total Procedure Duration Time 0 hours 4 minutes 11 seconds Findings: The Z-line was regular and was found 40 cm from the incisors. No biopsies or other specimens were collected for this exam. The examined esophagus was normal. Multiple dispersed, greater than 50 mm non-bleeding erosions were found in the entire examined stomach. There were no stigmata of recent bleeding. Biopsies were taken with a cold forceps for Helicobacter pylori testing. No ulcerswere found. The examined duodenum was normal. No ulcers were found. No biopsies or other specimens were collected for this exam. Impression: - Z-line regular, 40 cm from the incisors. No specimens collected. - Normal esophagus. - Non-bleeding erosive gastropathy. Biopsied. - Normal examined duodenum. No specimens collected. Recommendation: - [facility] to [facility]. - Resume previous diet. - Continue present medications. - Await pathology results. - Repeat upper endoscopy at appointment to be scheduled for surveillance. - Return to my office in 1 week. Procedure Code(s): --- Professional --- 49079, Esophagogastroduodenoscopy, flexible, transoral; with biopsy, single or multiple Diagnosis Code(s): --- Professional --- K31.89, Other diseases of stomach and duodenum R10.10, Upper abdominal pain, unspecified K92.1, Melena (includes Hematochezia) CPT copyright 2017 [employer]. All rights reserved. The codes documented in this report are preliminary and upon associate entertainment editor review may be revised to meet current compliance requirements. MD Fred Perez MD 04/01/2018 12:16:34 PM This report has been signed electronically. Number of Addenda: 0 Note Initiated On: 04/01/2018 11:50 AM 04/01/18 1216 Date Fred Miller MD Cosigner Signature: Date (if indicated) CC: Fred Miller MD; Aristides Salazar MD; Adair Tsang MD; Rhett Dorsey MD Date Dictated: 04/01/18 1150 Date Transcribed: Rotary Engraver: DANNA Signed EGD ([facility]) Observed: 04/01/2018 Status: F Source: [place] 12:00 PM [facility] [place] Patient: LAURYN BRUMFIELD : 1950 (68/F) Acct Num: [id number] Phys: Aristides Salazar MD Unit Num: [id number] Loc: U [id number] Specimen: [id number] Received: 04/01/18 1236 Spec Type: EGD BIOPSY TISSUES 1 TISSUES: Gastric mucous membrane COMMENT The results of immunohistochemistry for Helicobacter pylori will be reported separately ([id number]). GROSS DESCRIPTION Received in fixative is one container labeled with the patient's name and designated antral biopsy. The specimen consists of one irregular fragment of [place] soft tissue that measures 0.3 x 0.1 x 0.1 cm. The specimen is totally submitted in one cassette. / SJ:bob 04/01/18 TC:3 CPT: 98719 HEADER OPERATION[place] [place] DIAGNOSIS: GI bleed TISSUE SUBMITTED: Antral biopsy for H. Pylori MICROSCOPIC DESCRIPTION Slides are reviewed. MICROSCOPIC DIAGNOSIS Gastric antrum, biopsy: Minimal chronic inflammation. AM:bob 04/02/18 Signed [facility] 04/02/18 <signature on file> Performed By: #### PEGD #### [facility] [address] [place] [address]. [place], [place], [address] IMMUNOHISTOCHEMISTRY Observed: 04/01/2018 Status: F Source: [place] 12:00 PM [facility] [place] Patient: LAURYN BRUMFIELD : 1950 (68/F) Acct Num: [id number] Phys: Aristides Salazar MD Unit Num: [id number] Loc: U SIS506-3 Specimen: [id number] Received: 04/01/18 - 1449 Spec Type: IMMUNO TISSUES 1 TISSUES: Stomach, NOS SPECIMEN INFORMATION: Tissue Source: Antral biopsy Clinical Info: GI bleed Specimen Number: [id number] CPT code: 93658 METHODOLOGY: Deparaffinized sections of prefer/formalin-fixed tissue or PAP/DQ stained slides are incubated with monoclonal/polyclonal antibodies/oligonucleotide probes. Localization is made via biotin free immunoperoxidase method. Appropriate controls are performed and reacted as expected. Results on target cell population are indicated in the following table: RESULTS: ANTIBODY / CLONE RESULT H Pylori (polyclonal) negative These tests were developed and their performance characteristics determined by [facility]. They may not have been cleared or approved by the U.S. Food and Drug Administration. The FDA has determined that such clearance or approval is not necessary. INTERPRETATION: Antral biopsy: Negative for Helicobacter pylori organisms. AM:rg 04/02/18 PHYSICIAN AND INSTITUTION [place] [address] [place], [place] [address] Signed Frank Melina 04/02/18 <signature on file> Performed By: #### PIMM #### [facility] [address] [place] [address], [id number] BEDSIDE GLUCOSE Collected: 04/01/2018 Status: F Source: [place] 10:46 AM [facility] [place] TYPE CODE TESTS RESULT OUT OF REFERENCE UNITS RANGE LAB L501.080 70-110 mg/dL High BEDSIDE GLU 156 Result Comment: MANAGEMENT OF PATIENT CARE PER NURSING PROTOCOL Performed By: #### L501.080 #### [facility] Point of Care [address] [place] [address]. [place], [place] [address] BEDSIDE GLUCOSE Collected: 04/01/2018 Status: F Source: [place] 6:53 AM [facility] [place] TYPE CODE TESTS RESULT OUT OF REFERENCE UNITS RANGE LAB L501.080 70-110 mg/dL High BEDSIDE GLU 187 Result Comment: MANAGEMENT OF PATIENT CARE PER NURSING PROTOCOL Performed By: #### L501.080 #### [facility] Point of Care [address] [place] [address] CBC W/DIFF, AUTOMATED Collected: 04/01/2018 Status: F Source: [place] 6:45 AM [facility] [place] TYPE CODE TESTS RESULT OUT OF RANGE REFERENCE UNITS LAB L100.1000 4.4-11.0 K/mm3 Normal WBC 6.5 LAB L100.1200 4.2-5.4 M/mm3 Normal RBC 4.46 LAB L100.1300 12.0-15.0 g/dl Normal HGB 13.3 LAB L100.1400 37-47 % Normal HCT 38.5 LAB L100.1500 81-99 fL Normal MCV 86.3 LAB L100.1600 27.0-32.0 pg Normal MCH 29.8 LAB L100.1700 32-36 g/gl Normal MCHC 34.5 LAB L100.1810 11.6-14.6 % Normal RDW CV 13.3 LAB L100.1820 35.1-43.9 fl Normal RDW SD 41.3 LAB L100.1900 150-450 K/mm3 Normal PLT 167 LAB L100.2000 6.2-12.0 fl Normal MPV 11.8 LAB L100.2100 47-70 % Normal NEUT% 52.6 LAB L100.2200 19-41 % Normal LY% 33.3 LAB L100.2300 0-10 % Normal MONO% 9.0 LAB L100.2400 0-5 % Normal EO% 4.0 LAB L100.2500 0-1 % Normal BASO% 0.8 LAB L100.2550 0.0-0.9 % Normal IM GRAN % 0.300 Result Comment: IG% - Immature Granulocytes (promyelocytes, myelocytes and metamyelocytes) > 1% indicates that a LEFT SHIFT is Present. LAB L100.2620 2.0-7.7 X10 3/uL Normal Absolute Neut 3.4 LAB L100.2720 0.83-4.51 X10 3/ul Normal Absolute Lymph 2.16 Performed By: #### L100.0100 #### [facility]. [place], [place], [id number] BASIC METABOLIC Collected: 04/01/2018 Status: F Source: [place] PROFILE (BMP) 6:45 AM [facility] [place] TYPE CODE TESTS RESULT OUT OF RANGE REFERENCE UNITS LAB L501.0100 74-106 mg/dL High GLU 183 Result Comment: Fasting Glucose result greater than or equal to 126 mg/dL suggests DIABETES MELLITUS per A.D.A. criteria. Please note revised GLUCOSE reference range effective 2017. LAB L501.1000 7-18 mg/dL Normal BUN 12 LAB L501.1100 0.55-1.02 mg/dL Low CREAT,SERUM 0.47 Result Comment: The validity of the calculated GFR AND GFRAA in patients over 70 years has not been determined. Clinical correlation is essential. LAB L501.1110 >60 mL/min Normal EST GFR 139 Result Comment: Non- GFR Calc LAB L501.1115 >60 mL/min Normal EST GFR - AA 168 Result Comment: GFR Calc LAB L501.1255 ml/min Normal Estimated CRCL 47.10 LAB L501.1300 10-20 RATIO High BUN/CRE 25.5 LAB L501.2200 8.5-10 mg/dL Low .1 CA 8.3 LAB L501.5300 136-14 mmol/L Normal 5 NA 141 LAB L501.5600 3.5-5. mmol/L Normal 1 K 4.1 LAB L501.5900 98-107 mmol/L High CL 110 LAB L501.6100 21.0-3 mmol/L Normal 2.0 CO2 26.0 LAB L501.6200 5-15 Normal GAP 5 Performed By: #### L500.2500 #### [facility] [address] [facility] [place], [place], [address] HH, HEMOGLOBIN AND Collected: 04/01/2018 Status: F Source: [place] HEMATOCRIT 12:50 AM [facility] [place] TYPE CODE TESTS RESULT OUT OF RANGE REFERENCE UNITS LAB L100.1300 12.0-15.0 g/dl Normal HGB 12.5 LAB L100.1400 37-47 % Low HCT 36.2 Performed By: #### L100.0600 #### [facility] [address] [facility] [place], [place], [address] BEDSIDE GLUCOSE Collected: 03/31/2018 Status: F Source: [place] 9:18 PM [facility] [place] TYPE CODE TESTS RESULT OUT OF REFERENCE UNITS RANGE LAB L501.080 70-110 mg/dL High BEDSIDE GLU 177 Result Comment: MANAGEMENT OF PATIENT CARE PER NURSING PROTOCOL Performed By: #### L501.080 #### [facility] Point of Care [address] [facility] [place], [place] [address] LACTIC ACID Collected: 03/31/2018 Status: F Source: [place] 5:45 PM [facility] [place] TYPE CODE TESTS RESULT OUT OF RANGE REFERENCE UNITS LAB L503.6005 0.4-2.0 mmol/L Normal LACTIC ACID 0.9 Performed By: #### L503.6005 #### [facility] [address] [facility] [place], [address] HH, HEMOGLOBIN AND Collected: 03/31/2018 Status: F Source: [place] HEMATOCRIT 5:45 PM [facility] [place] TYPE CODE TESTS RESULT OUT OF RANGE REFERENCE UNITS LAB L100.1300 12.0-15.0 g/dl Normal HGB 13.9 LAB L100.1400 37-47 % Normal HCT 38.8 Performed By: #### L100.0600 #### [facility] [address] [facility] [place], [address] BEDSIDE GLUCOSE Collected: 03/31/2018 Status: F Source: [place] 3:51 PM [facility] [place] TYPE CODE TESTS RESULT OUT OF REFERENCE UNITS RANGE LAB L501.080 70-110 mg/dL High BEDSIDE GLU 120 Result Comment: MANAGEMENT OF PATIENT CARE PER NURSING PROTOCOL Performed By: #### L501.080 #### [facility] Point of Care [address] [facility] [place] [address] CONSULTATION Observed: 03/31/2018 Status: F Source: [place] 3:46 PM [facility] [place] [facility] Medical Records Department [address] [place] [address] Consultation 03/31/18 1515 MR#: [id number] Acct: [id number] Name: LAURYN BRUMFIELD Rep #: [id number] : 1950 68 From: Lore Valencia PA-C PCP: Rhett Dorsey MD Status: ADM IN Y [id number] Problem List (1) Upper GI bleed Status: Acute Reason for Consult Date of Consultation: 03/31/18 Reason for Consultation: Upper GI bleed. Melena. History of Present Illness: The patient is a 68 year old F who presents with a 1 1/2 week history of cramping/burning upper and lower abdominal pain. She noted her stool has been loose cow syed and then she had a large melanotic stool today. Patient notes a history of irritable bowel syndrome. She notes she controls her symptoms through diet and does not take any medications. She denies family history of colon cancer. She denies nausea, vomiting, fatigue, shortness of breath. She notes taking Naproxen at least daily for approximately 10 years for fibromyalgia. Patient notes her last colonoscopy and EGD was with Dr. Cummings approximately 4-5 years ago. She denies having any colon polyps. Patient notes she was following with a yarn carrier for shortness of breath and fatigue. She denies history of CHF, myocardial infarction, stroke and blood clots. Patient denies previous abdominal surgeries. Patient is maintained on a daily aspirin. Fecal occult blood test was positive. Past Medical History Past Medical History (Chronic Problems): Chronic Problems (Last Reviewed 03/05/18 @ 07:03 by Peyton Jara) Restrictive lung disease (Chronic) Dyspnea on exertion (Chronic) Encounter for long-term current use of high risk medication (Chronic) Hypertension (Chronic) Hyperlipidemia (Chronic) Abnormal findings on diagnostic imaging of heart and coronary circulation (Chronic) Pericardial effusion (noninflammatory) (Chronic) Nonrheumatic mitral valve insufficiency (Chronic) Non-rheumatic tricuspid valve insufficiency (Chronic) Acoustic neuroma (Chronic) Benign hypertension (Chronic) Medical History: Medical History (Last Reviewed 03/05/18 @ 07:03 by Peyton Jara) Dyspnea on exertion (Chronic) R06.09 Encounter for long-term current use of high risk medication (Chronic) Z79.899 Hypertension (Chronic) I10 Hyperlipidemia (Chronic) E78.5 Abnormal findings on diagnostic imaging of heart and coronary circulation (Chronic) R93.1 Pericardial effusion (noninflammatory) (Chronic) I31.3 Nonrheumatic mitral valve insufficiency (Chronic) I34.0 Non-rheumatic tricuspid valve insufficiency (Chronic) I36.1 Acoustic neuroma (Chronic) D33.3 Benign hypertension (Chronic) I10 Dyspnea on exertion R06.09 Hemoptysis R04.2 Skin cancer C44.90 Adjustment disorder with mixed anxiety and depressed mood F43.23 Aortic valve sclerosis I35.8 Bacterial sinusitis J32.9, B96.89 Esophageal reflux K21.9 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 Insomnia G47.00 Obesity E66.9 Primary osteoarthritis of left knee M17.12 Sleep apnea G47.30 Spinal stenosis of lumbar region M48.061 Type 2 diabetes mellitus E11.9 Allergies amlodipine Adverse Reaction (Severe, Verified 11/27/18 12:08) Unknown nickel Adverse Reaction (Severe, Verified 03/31/18 12:08) Unknown lisinopril Adverse Reaction (Mild, Verified 03/31/18 12:08) Other - cough Home Medications: Ambulatory Orders Medication Instructions Recorded Surgical History: Surgical History (Last Reviewed 03/05/18 @ 07:03 by Peyton Jara) H/O brain surgery Z98.890 acoustic neuroma 09/1998 H/O foot surgery Z98.890 Surgical History: no surgical history Psychiatric History: No pertinent psych hx LOSS PREVENTION AND SAFETY MANAGER History: No pertinent LOSS PREVENTION AND SAFETY MANAGER history Lives: Alone Smoking Status: Former smoker Tobacco Use: Cigarettes - *Family History Paternal Family History: Family History (Last Reviewed 03/05/18 @ 07:03 by Peyton Jara) Brother CAD (coronary artery disease) Cancer Mother CVA (cerebral vascular accident) Father Alzheimers disease Grandmother Cancer Diabetes History Items: No pertinent history Review of Systems Constitutional: Denies: Weight Change HEENT: Denies: Head Aches, Sinus Congestion, Sinus Drainage Cardiovascular: Denies: Chest Pain, Palpitations Respiratory: Denies: Cough, Shortness of breath at rest, Sputum production Gastrointestinal: Reports: Abdominal Pain, Melena. Denies: Nausea, Vomiting Genitourinary: Denies: Dysuria Musculoskeletal: Denies: Joint Pain, Joint Tenderness Skin: Denies: Rash, Wounds Neurological: Denies: Numbness, Tingling, Focal weakness Psychiatric: Denies: Anxiety, Depression, Homicidal Ideations, Suicidal Ideations Hematologic/ Lymphatic: Denies: Easy Bruising, Easy Bleeding Patient Problems: Active and Suspected Problems (Last Reviewed 03/05/18 @ 07:03 by Peyton Jara) Upper GI bleed (Acute) - Physical Exam General: Alert, Oriented x3, Cooperative HEENT: Atraumatic, PERRLA, EOMI, Normocephalic Neck: Supple, No JVD, Negative Carotid Bruits Lungs: Clear to auscultation, Normal air movement Cardiovascular: Regular rate, No murmurs Abdomen: Soft, Non Tender, Distended, Obese Extremities: No edema, Capillary Refill Less than 3 Seconds Skin: No rashes, No breakdown Musculoskeletal: No Tenderness to Palpation of Joints or Extremities Neurological: Neuro grossly intact Psych/Mental Status: Normal Affect, Appropriate Vital Signs Temp Pulse Resp BP Pulse Ox 96.9 F L 74 18 155/69 H 99 03/31/18 12:06 03/31/18 14:29 03/31/18 14:29 03/31/18 14:29 03/31/18 14:29 Weight: 220 lb Body Mass Index (BMI) 36.6 Microbiology Past 72 Hours 03/31/18 12:25 Stool Occult Blood (HOWARD) - Final Stool Occult Blood Positive Laboratory Tests Past 24 Hrs WBC RBC Hgb Hct MCV MCH MCHC RDW RDW Differential Plt Count MPV Immature Gran % (Auto) Neut % (Auto) Lymph % (Auto) Assessment/Plan All Active Problems (Last Reviewed 03/05/18 @ 07:03 by Peyton Jara) Upper GI bleed (Acute) I have been consulted in conjunction with Dr. Sanchez. Impression: Melena. Fecal occult positive. Abdominal pain. Plan: Patient was discussed with Dr. Miller. Dr. Miller will plan to perform an upper endoscopy with MAC tomorrow. Procedure details, risks and benefits have been explained to the patient and her daughter. Patient has had the opportunity to ask and have questions answered. NPO at midnight. Thank you for allowing us to participate in this patient's care. My recommendations will be available via electronic medical records. Code Visit Office Visits / Consults: [id number] IP Consult L3 03/31/18 1546 <Electronically signed by Lore Valencia PA-C> Date Lore Valencia PA-C Cosigner Signature (if applicable): Date CC: Fred Miller MD; Adair Tsang MD; Rhett Dorsey MD Signed HISTORY AND PHYSICAL Observed: 03/31/2018 Status: F Source: HUBBELL EXAM 2:18 PM [facility] [place] [facility] Medical Records Department [address] [place] [address] History and Physical 03/31/18 1333 MR#: [id number] Acct: [id number] Name: LAURYN BRUMFIELD Rep #: [id number] : 1950 68 From: Adair Tsang MD PCP: Rhett Dorsey MD Status: ADM IN Y Location: [place] [address] Problem List (1) Restrictive lung disease Status: Chronic (2) Dyspnea on exertion Status: Chronic (3) Encounter for long-term current use of high risk medication Status: Chronic (4) Hypertension Status: Chronic Qualifiers: Hypertension type: essential hypertension Qualified Code(s): I10 - Essential (primary) hypertension (5) Hyperlipidemia Status: Chronic Qualifiers: Hyperlipidemia type: pure hypercholesterolemia Qualified Code(s): E78.00 - Pure hypercholesterolemia, unspecified; E78.0 - Pure hypercholesterolemia (6) Abnormal findings on diagnostic imaging of heart and coronary circulation Status: Chronic (7) Pericardial effusion (noninflammatory) Status: Chronic (8) Nonrheumatic mitral valve insufficiency Status: Chronic (9) Non-rheumatic tricuspid valve insufficiency Status: Chronic (10) Acoustic neuroma Status: Chronic (11) Benign hypertension Status: Chronic (12) Upper GI bleed Status: Acute History of Present Illness Date of Admission: 03/31/18 Chief Complaint: Abdominal pain for 1/2 weeks and melena one time The patient is a 68 year old F with history of diabetes mellitus type 2, hypertension and 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 She has abdominal cramps that is started in epigastrium and was diffuse moved to lower abdomen but was mild in intensity. She denies nausea/vomiting/hematemesis. She denies previous history of GI bleed. She takes baby aspirin. She had EGD and colonoscopy in the past but many years ago and does not remember the details but said it was okay. In ED, occult blood was positive. H AND H 14.2/39.9. Platelet count 189,000. K4.0. BUN/creatinine 16/0.6. [] Past Medical History Past Medical History (Chronic Problems): Chronic Problems (Last Reviewed 03/05/18 @ 07:03 by Peyton Jara) Restrictive lung disease (Chronic) Dyspnea on exertion (Chronic) Encounter for long-term current use of high risk medication (Chronic) Hypertension (Chronic) Hyperlipidemia (Chronic) Abnormal findings on diagnostic imaging of heart and coronary circulation (Chronic) Pericardial effusion (noninflammatory) (Chronic) Nonrheumatic mitral valve insufficiency (Chronic) Non-rheumatic tricuspid valve insufficiency (Chronic) Acoustic neuroma (Chronic) Benign hypertension (Chronic) Medical History: Medical History (Last Reviewed 03/05/18 @ 07:03 by Peyton Jara) Dyspnea on exertion (Chronic) R06.09 Encounter for long-term current use of high risk medication (Chronic) Z79.899 Hypertension (Chronic) I10 Hyperlipidemia (Chronic) E78.5 Abnormal findings on diagnostic imaging of heart and coronary circulation (Chronic) R93.1 Pericardial effusion (noninflammatory) (Chronic) I31.3 Nonrheumatic mitral valve insufficiency (Chronic) I34.0 Non-rheumatic tricuspid valve insufficiency (Chronic) I36.1 Acoustic neuroma (Chronic) D33.3 Benign hypertension (Chronic) I10 Dyspnea on exertion R06.09 Hemoptysis R04.2 Skin cancer C44.90 Adjustment disorder with mixed anxiety and depressed mood F43.23 Aortic valve sclerosis I35.8 Bacterial sinusitis J32.9, B96.89 Esophageal reflux K21.9 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 Insomnia G47.00 Obesity E66.9 Primary osteoarthritis of left knee M17.12 Sleep apnea G47.30 Spinal stenosis of lumbar region M48.061 Type 2 diabetes mellitus E11.9 Allergies amlodipine Adverse Reaction (Severe, Verified 03/31/18 12:08) Unknown nickel Adverse Reaction (Severe, Verified 03/31/18 12:08) Unknown lisinopril Adverse Reaction (Mild, Verified 03/31/18 12:08) Other - cough Home Medications: Ambulatory Orders Medication Instructions Recorded armodafinil 250 mg tablet 250 mg PO QDAY tab 09/09/17 Surgical History: Surgical History (Last Reviewed 03/05/18 @ 07:03 by Peyton Jara) H/O brain surgery Z98.890 acoustic neuroma 09/1998 H/O foot surgery Z98.890 Surgical History: neuroma Smoking Status: Former smoker Tobacco Use: Cigarettes - *Family History Paternal Family History: Family History (Last Reviewed 03/05/18 @ 07:03 by Peyton Jara) Brother CAD (coronary artery disease) Cancer Mother CVA (cerebral vascular accident) Father Alzheimers disease Grandmother Cancer Diabetes History Items: No pertinent history Review of Systems Constitutional: Denies: Chills, Fever, Weight Change HEENT: Reports: Difficulty Hearing - On right ear, chronic from a caustic neuroma. Denies: Head Aches, Sinus Congestion, Sinus Drainage Cardiovascular: Denies: Chest Pain, Palpitations Respiratory: Denies: Cough, Shortness of breath at rest, Sputum production Gastrointestinal: Reports: Abdominal Pain, Melena. Denies: Constipation, Nausea, Vomiting Genitourinary: Denies: Dysuria, Frequency, Hematuria Musculoskeletal: Denies: Joint Pain, Joint Tenderness Skin: Denies: Rash, Wounds Neurological: Reports: Balance problems. Denies: Focal weakness, Numbness, Tingling Psychiatric: Denies: Anxiety, Depression, Homicidal Ideations, Suicidal Ideations Hematologic/ Lymphatic: Denies: Easy Bruising, Easy Bleeding VTE Information - Inpt Only VTE Present on Admission: No VTE Mechan Device Prophylaxis: SCD's Reason prophylaxis not ordered:: Medical Contraindication - Active GI bleed. Patient Problems: Active and Suspected Problems (Last Reviewed 03/05/18 @ 07:03 by Peyton Jara) Upper GI bleed (Acute) - Physical Exam General: Alert, Oriented x3, Cooperative HEENT: Atraumatic, PERRLA, EOMI, Normocephalic, - - Hearing impairment on right ear Neck: Supple, No JVD, Negative Carotid Bruits Lungs: Clear to auscultation, Normal air movement, No rhonchi, No wheeze, No rales Cardiovascular: Regular rate, Regular Rhythm, Normal S1, Normal S2, No murmurs Abdomen: Bowel Sounds Present, Soft, Non Tender, Non-Distended Extremities: Capillary Refill Less than 3 Seconds, Edema Skin: No rashes, No breakdown Musculoskeletal: No Tenderness to Palpation of Joints or Extremities, Arthritic Changes Neurological: Cranial nerves II-XII grossly intact, Deep Tendon Reflexes 2+/4 and Symmetrical, Neuro grossly intact, Motor Exam 5/5 strength throughout Psych/Mental Status: Normal Affect, Appropriate Vital Signs Temp Pulse Resp BP Pulse Ox 96.9 F L 66 16 171/67 H 99 03/31/18 12:06 03/31/18 12:38 03/31/18 12:06 03/31/18 12:38 03/31/18 12:06 Weight: 220 lb Body Mass Index (BMI) 36.6 Microbiology Past 72 Hours 03/31/18 12:25 Stool Occult Blood (HOWARD) - Final Stool Occult Blood Positive Laboratory Tests Past 24 Hrs WBC RBC Hgb Hct MCV MCH MCHC RDW RDW Differential Plt Count MPV Immature Gran % (Auto) Neut % (Auto) Lymph % (Auto) Assessment/Plan All Active Problems (Last Reviewed 03/05/18 @ 07:03 by Peyton Jara) Upper GI bleed (Acute) The patient is a 68 year old F with history of diabetes mellitus type 2, hypertension and 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 She has abdominal cramps that is started in epigastrium and was diffuse moved to lower abdomen but was mild in intensity. She denies nausea/vomiting/hematemesis. She denies previous history of GI bleed. She takes baby aspirin and on naproxen and orphenadrine. She had EGD and colonoscopy in the past but many years ago and does not remember the details but said it was okay. In ED, occult blood was positive. H AND H 14.2/39.9. Platelet count 189,000. K4.0. BUN/creatinine 16/0.6. 1. Upper GI bleed, exact etiology unclear but possible from aspirin/NSAID/PUD: The patient is being admitted to PCU on air sampling and monitoring. IV fluid normal saline. On Protonix drip. H AND H monitoring every 6 hourly. Clear liquid diet. Discussed with surgeon, Dr. Miller and he agreed to do EGD. Currently, patient is hemodynamically stable. Lactic acid 2.0. BP 165/77. Orthostatic vitals are negative. Previous H AND H in November 2016 13.5/38.6. Group and crossmatch done. If hemoglobin drops less than 8 g%, transfuse 2 units of PRBCs. Hold diuretics spironolactone and HCTZ. 2. Hypertension, dyslipidemia: Home medication continued. Hold antihypertensive medication if systolic blood pressure less than 140 mmHg. Dose of losartan is decreased. 3. Restrictive lung disease. Obstructive sleep apnea on CPAP: Continue home settings of CPAP. 4. Acoustic neuroma: Continue gabapentin. Hold armodafinil, dose of orphenadrine decreased. 5. Diabetes mellitus type 2: On Accu-Chek before meals and at bedtime and cover with Humalog sliding scale. Glucose and BMP 185. A1c tomorrow a.m. DVT prophylaxis: Bilateral SCDs. Pharmacological prophylaxis is contraindicated. Home medication reconciliation done. Microbiology Past 72 Hours 03/31/18 12:25 Stool Stool Occult Blood (HOWARD) - Final Occult Blood Positive Laboratory Results 03/31/18 12:30: WBC 9.2, RBC 4.71, Hgb 14.2, Hct 39.9, MCV 84.7, MCH 30.1, MCHC 35.6, RDW 13.2, RDW Differential 40.5, Plt Count 189, MPV 11.6, Immature Gran % (Auto) 0.200, Neut % (Auto) 57.1, Lymph % (Auto) 28.8, [place] % (Auto) 10.1 H, Eos % (Auto) 3.0, Baso % (Auto) 0.8, Absolute Neuts (auto) 5.2, Absolute Lymphs (auto) 2.65, Total Counted Not Reportable 03/31/18 12:30: Sodium 139, Potassium 4.0, Chloride 106, Carbon Dioxide 26.0, Anion Gap 7, BUN 16, Creatinine 0.60, Estim Creat Clear Calc 47.10, Est GFR (MDRD) Af Amer 127, Est GFR (MDRD) Non-Af 105, BUN/Creatinine Ratio 26.7 H, Glucose 185 H, Calcium 9.0 03/31/18 12:30: Lactic Acid 2.0 03/31/18 12:30: Blood Type O POSITIVE, Antibody Screen NEGATIVE Code Visit Inpatient E AND M: [id number] Init Hosp L3 03/31/18 1418 <Electronically signed by Adair Tsang MD> Date Adair Tsang MD Cosigner Signature: Date (if applicable) CC: Adair Tsang MD; Rhett Dorsey MD Signed EMERGENCY DEPARTMENT Observed: 03/31/2018 Status: F Source: JASS SUMMARY 1:41 PM [facility] [place] [facility] Medical Records Department [address] [place] [address] Emergency Department Summary 03/31/18 1338 MR#: [id number] Acct: [id number] Name: LAURYN BRUMFIELD Rep #: [id number] : 1950 68 From: Kevin Schaffer DO PCP: Rhett Dorsey MD Status: REG ER - ER Visit Summary Date of Service: 03/31/18 Chief Complaint: [Black stool] History of Present Illness: The patient is a 68 F [presents to the emergency department with complaint of black stool that she noticed this morning. Patient states that she is had intermittent abdominal discomfort for the last week and a half. Patient also feeling fatigued and lacks energy. Patient states that she has been expensing upper abdominal discomfort intermittently typically after eating. Patient does have a history of gastroesophageal reflux disease and normally sleeps with the head of the bed elevated. Patient does not take any medication for reflux. Patient has had prior EGD but it was many years ago she cannot remember how many years ago. Patient is not on any blood thinners. Patient denies any fevers. She has not taken any Pepto-Bismol. She does not take iron.] Physical Examination: [HEENT-PERRLA, EOMI. Cranial nerves II through XII grossly intact. TMs clear. Mucous membranes moist. No adenopathy. Cardiovascular-regular rate and rhythm without murmur or ectopy Lungs-clear to auscultation, chest wall stable without crepitus or subcu emphysema Abdomen-normoactive bowel sounds, soft, nontender, no rebound or rigidity, no peritoneal signs. Rectal exam-no external lesions noted. No masses palpated in the rectal vault. There was blackish stool noted on exam that was Hemoccult positive Extremities-intact 4, normal range of motion, normal pulses, atraumatic] Test Results: [Static vital signs were negative. CBC with differential obtained on arrival showed a white blood cell count of 9.2, hemoglobin 14, hematocrit 40, platelets 189. Chemistries unremarkable. BUN was 16 and creatinine 0.60. Lactate was 2.0.] Emergency Department Course and Treatment: [Patient was started on a Protonix drip.] Treatment Plan: [Admit] Disposition: [Admit] Impression: [Upper GI bleed] This note was generated with [employer]ulse[employer] software. It may contain incorrect words, spelling, and punctuation that were not noted in review of the chart prior to signing ED Disposition - Plan for ED Patient: Chief Complaint: GI Bleed Referrals: Rhett Dorsey MD [Primary Care Provider] - What to do if you have Problems For any increased pain, shortness of breath, bleeding, nausea or vomiting, chest pain, or any unexpected problems, contact your Primary Care Provider. Call [facility] ([phone]) or report to the closest Emergency Room. Call 911 if necessary. 03/31/18 1341 <Electronically signed by Kevin Schaffer DO> Date Kevin Schaffer DO Cosigner Signature (If Indicated): Date CC: Rhett Dorsey MD CBC W/DIFF, AUTOMATED Collected: 03/31/2018 Status: F Source: JASS 12:30 PM [facility] [place] TYPE CODE TESTS RESULT OUT OF RANGE REFERENCE UNITS LAB L100.1000 4.4-11.0 K/mm3 Normal WBC 9.2 LAB L100.1200 4.2-5.4 M/mm3 Normal RBC 4.71 LAB L100.1300 12.0-15.0 g/dl Normal HGB 14.2 LAB L100.1400 37-47 % Normal HCT 39.9 LAB L100.1500 81-99 fL Normal MCV 84.7 LAB L100.1600 27.0-32.0 pg Normal MCH 30.1 LAB L100.1700 32-36 g/gl Normal MCHC 35.6 LAB L100.1810 11.6-14.6 % Normal RDW CV 13.2 LAB L100.1820 35.1-43.9 fl Normal RDW SD 40.5 LAB L100.1900 150-450 K/mm3 Normal PLT 189 LAB L100.2000 6.2-12.0 fl Normal MPV 11.6 LAB L100.2100 47-70 % Normal NEUT% 57.1 LAB L100.2200 19-41 % Normal LY% 28.8 LAB L100.2300 0-10 % High MONO% 10.1 LAB L100.2400 0-5 % Normal EO% 3.0 LAB L100.2500 0-1 % Normal BASO% 0.8 LAB L100.2550 0.0-0.9 % Normal IM GRAN % 0.200 Result Comment: IG% - Immature Granulocytes (promyelocytes, myelocytes and metamyelocytes) > 1% indicates that a LEFT SHIFT is Present. LAB L100.2620 2.0-7.7 X10 3/uL Normal Absolute Neut 5.2 LAB L100.2720 0.83-4.51 X10 3/ul Normal Absolute Lymph 2.65 Performed By: #### L100.0100 #### [facility] [address] [place], [place], [address] BASIC METABOLIC Collected: 03/31/2018 Status: F Source: HUBBELL PROFILE (BMP) 12:30 PM [facility] [place] TYPE CODE TESTS RESULT OUT OF RANGE REFERENCE UNITS LAB L501.0100 74-106 mg/dL High GLU 185 Result Comment: Fasting Glucose result greater than or equal to 126 mg/dL suggests DIABETES MELLITUS per A.D.A. criteria. Please note revised GLUCOSE reference range effective 2017. LAB L501.1000 7-18 mg/dL Normal BUN 16 LAB L501.1100 0.55-1.02 mg/dL Normal CREAT,SERUM 0.60 Result Comment: The validity of the calculated GFR AND GFRAA in patients over 70 years has not been determined. Clinical correlation is essential. LAB L501.1110 >60 mL/min Normal EST GFR 105 Result Comment: Non- GFR Calc LAB L501.1115 >60 mL/min Normal EST GFR - AA 127 Result Comment: GFR Calc LAB L501.1255 ml/min Normal Estimated CRCL 47.10 LAB L501.1300 10-20 RATIO High BUN/CRE 26.7 LAB L501.2200 8.5-10 mg/dL Normal .1 CA 9.0 LAB L501.5300 136-14 mmol/L Normal 5 NA 139 LAB L501.5600 3.5-5. mmol/L Normal 1 K 4.0 Result Comment: Slight Hemolysis, Result may be falsely increased. LAB L501.5900 98-107 mmol/L Normal CL 106 LAB L501.6100 21.0-32.0 mmol/L Normal CO2 26.0 LAB L501.6200 5-15 Normal 7 GAP Performed By: #### L500.2500 #### [facility] [address] [facility] [place], [place], [id number] LACTIC ACID Collected: 03/31/2018 Status: F Source: HUBBELL 12:30 PM [facility] [place] Order Comment: Yes/No query for Sepsis Lactate Rule Y TYPE CODE TESTS RESULT OUT OF RANGE REFERENCE UNITS LAB L503.6005 0.4-2.0 mmol/L Normal LACTIC ACID 2.0 Result Comment: Critical Result(s) Called at: 13:23:29 03/31/2018 by: Janae Clark Performed By: #### L503.6005 #### [facility] [address] [place], [place], [id number] TYPE AND SCREEN Collected: 03/31/2018 Status: F Source: HUBBELL 12:30 PM [facility] [place] Order Comment: Reason for Type AND Screen/Red Cells: HEMORRHAGE, GI BLEED TYPE CODE TESTS RESULT OUT OF RANGE REFERENCE UNITS LAB B10.0800 O Normal BLOOD TYPE GEL POSITIVE LAB B100.4000 Normal Antibody NEGATIVE Screen Performed By: #### B101.7450 #### [facility] [address] [place], [place], [id number] LIVER PROFILE Collected: 03/31/2018 Status: F Source: HUBBELL 12:30 PM [facility] [place] TYPE CODE TESTS RESULT OUT OF RANGE REFERENCE UNITS LAB L501.1500 6.4-8.2 g/dL Normal T PROT 6.8 LAB L501.1800 3.2-5.0 g/dL Normal ALB 3.5 LAB L501.1950 2.2-4.2 g/dL Normal GLOB 3.3 LAB L501.4100 15-37 U/L Normal AST 32 Result Comment: Slight Hemolysis, Result may be falsely increased. LAB L501.4305 45-117 U/L Normal ALK P 117 LAB L501.4405 13-56 U/L Normal ALT 33 LAB L501.4600 0.20-1.00 mg/dL Normal T BILI 0.40 LAB L501.4700 0.00-0.30 mg/dL Normal D BILI 0.12 Performed By: #### L500.3400 #### [facility] [address] [place], [address] PROTHROMBIN TIME W/INR Collected: 03/31/2018 Status: F Source: JASS 12:30 PM [facility] [place] TYPE CODE TESTS RESULT OUT OF RANGE REFERENCE UNITS LAB L300.4150 11.7-14.9 SECONDS Normal PROTIME 12.9 LAB L300.4200 Normal INR 1.0 Performed By: #### L300.3900, L300.4310 #### [facility] [address] [place], [place], [id number] PARTIAL THROMBOPLAST Collected: 03/31/2018 Status: F Source: JASS TIME 12:30 PM [facility] [place] TYPE CODE TESTS RESULT OUT OF RANGE REFERENCE UNITS LAB L300.4310 24.1-36.2 Seconds Normal PTT 29.6 Performed By: #### L300.3900, L300.4310 #### [facility] [address] [place], [address] Observed: 03/31/2018 Status: F Source: HUBBELL STOOL OCCULT BLOOD 12:25 PM [facility] [place] [facility] [place] STOB iFOB Occult Blood Positive ORGANISM 1: OCCULT BLOOD POSITIVE Performed By: #### M100.7900 #### [facility] [address] [place], [place], [address] PULMONARY VISIT REPORT Observed: 03/05/2018 Status: F Source: JASS 12:33 PM [facility] [place] [facility] [address] [place] [address] OFFICE VISIT Date of Service: 03/05/18 MR#: [id number] Acct: [id number] Name: LAURYN BRUMFIELD Rep #: [id number] : 1950 Provider: Noel Dunlap D.O. Age/Sex: 68/F Location: [facility] Status: Signed Assessment AND Plan 1. Restrictive lung disease J98.4 Plan At this time, given the lack of interstitial changes noted on the patient's CT chest, it is highly likely that the patient's restrictive impairment is a consequence of her body habitus. Given the lack of other significant findings on cardiac and pulmonary workup, the patient's shortness of breath is likely the consequence of generalized deconditioning and obesity. 2. Dyspnea on exertion R06.09 Plan As noted above, concern for generalized deconditioning and obesity as the etiology for the patient's exertional dyspnea. If the patient's shortness of breath were to progress, would next plan to obtain a repeat surface echocardiogram to evaluate for elevated pulmonary artery pressures. 3. Lung nodule R91.1 Plan The patient did have evidence of a subcentimeter pulmonary nodule noted on her CT chest, for which I would recommend a follow-up CAT scan in approximately 1 year. Orders have been placed accordingly. Orders Orders: 4. KAYCEE (obstructive sleep apnea) G47.33 Plan Continue follow-up with neurology for management of KAYCEE as per previous. Plan Detail Follow Up 1 Year (DMB) HPI HPI Comments Details: The patient is a 68-year-old female who presents to the clinic today for a routine scheduled follow-up office visit. If you recall, the patient was initially referred to me for evaluation of shortness of breath in October 2017. The patient has been followed by the [facility] for a history of hypertension. She also has a significant family history of coronary artery disease. The patient has chronic exertional dyspnea. The patient did have a normal pharmacologic myocardial stress test in March 2017. Surface echocardiogram revealed mild concentric LVH with an ejection fraction of 55%. There is no note of pulmonary hypertension on the patient's last echocardiogram. The patient does have a [id number] smoking history, having quit completely 19 years ago. She also experienced significant secondhand smoke exposure from her now , who was a heavy smoker. She has lived in [place] her entire life. 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 The patient does have a history of obstructive sleep apnea, for which she currently utilizes nocturnal CPAP therapy. She is followed by neurology here at [facility]. Pulmonary function testing completed in January 2018 revealed evidence of a moderate restrictive ventilatory defect with a symmetric reduction in diffusing capacity. A 6-minute walk test was then also completed which revealed significant exertional oxygen desaturation with a d[place]ot[place] of 89%. CT chest with contrast completed at the beginning of February 2018 revealed an 8 mm left lower lobe pulmonary nodule. Today, the patient does continue to report shortness of breath with strenuous physical exertion. She does not utilize any inhalers or supplemental oxygen at her baseline. Her weight has remained relatively stable. She does have an upcoming nerve conduction study scheduled at the beginning of April. She remains compliant with the use of nocturnal CPAP therapy. The results from her most recent chest CT were personally reviewed with her. She denies fevers, chills or night sweats. She denies chest pain, dizziness or lightheadedness. 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 Accompanied by: Self Is patient in pain?: No Allergies amlodipine Adverse Reaction (Severe, Verified 03/05/18 07:03) Unknown nickel Adverse Reaction (Severe, Verified 03/05/18 07:03) Unknown lisinopril Adverse Reaction (Mild, Verified 03/05/18 07:03) Other - cough Medications armodafinil 250 mg tablet 250 mg PO QDAY tab 09/09/17 [History Confirmed 03/05/18] aspirin 81 mg tablet,delayed release 81 mg PO QDAY 09/09/17 [History Confirmed 03/05/18] calcium carbonate 600 mg (1,500 mg)-vitamin D3 200 unit tablet 1 tab PO QDAY 09/09/17 [History Confirmed 03/05/18] colestipol 1 gram tablet 1 g PO QDAY tab 09/09/17 [History Confirmed 03/05/18] fluoxetine 20 mg capsule See Rx Instructions PO QDAY 09/09/17 [History Confirmed 03/05/18] gabapentin 100 mg capsule 100 mg PO TID cap 09/09/17 [History Confirmed 03/05/18] hydrochlorothiazide 25 mg tablet 25 mg PO QDAY 09/09/17 [History Confirmed 03/05/18] losartan 100 mg tablet 100 mg PO QDAY 09/09/17 [History Confirmed 03/05/18] orphenadrine citrate ER 100 mg tablet,extended release 100 mg PO QDAY tab 09/09/17 [History Confirmed 03/05/18] oxazepam 15 mg capsule 15 mg PO QHS PRN 09/09/17 [History Confirmed 03/05/18] trazodone 50 mg tablet 50 mg PO QHS tab 09/09/17 [History Confirmed 03/05/18] atenolol 50 mg tablet 50 mg PO BID tab 09/12/17 [History Confirmed 03/05/18] cyclosporine 0.05 % eye drops in a dropperette 1 drp OPHTHALMIC Q12H 10/30/17 [History Confirmed 03/05/18] metformin 500 mg tablet 500 mg PO BID 10/30/17 [History Confirmed 03/05/18] multivitamin tablet 1 tab PO QAM 10/30/17 [History Confirmed 03/05/18] naproxen 500 mg tablet 500 mg PO BID PRN 10/30/17 [History Confirmed 03/05/18] spironolactone 50 mg tablet 25 mg PO QDAY tab 10/30/17 [History Confirmed 03/05/18] PFSH Medical History Dyspnea on exertion (Chronic) Encounter for long-term current use of high risk medication (Chronic) Hypertension (Chronic) Hyperlipidemia (Chronic) Abnormal findings on diagnostic imaging of heart and coronary circulation (Chronic) Pericardial effusion (noninflammatory) (Chronic) Nonrheumatic mitral valve insufficiency (Chronic) Non-rheumatic tricuspid valve insufficiency (Chronic) Acoustic neuroma (Chronic) Benign hypertension (Chronic) Dyspnea on exertion (Acute) Hemoptysis (Acute) Skin cancer (Acute) Adjustment disorder with mixed anxiety and depressed mood (Chronic) Aortic valve sclerosis (Chronic) Bacterial sinusitis (Chronic) Esophageal reflux (Chronic) Inflammatory polyarthritis (Chronic) Insomnia (Chronic) Obesity (Chronic) Primary osteoarthritis of left knee (Chronic) Sleep apnea (Chronic) Spinal stenosis of lumbar region (Chronic) Type 2 diabetes mellitus (Chronic) Surgical History H/O brain surgery (Resolved) H/O foot surgery (Resolved) Family History Brother CAD (coronary artery disease) Cancer Mother CVA (cerebral vascular accident) Father Alzheimers disease Grandmother Cancer Diabetes Social History household members: none housing: house current occupational status: employed current occupation: [employer] pets and animals: Yes pets and animals: dog(s) Smoking Status: Former smoker quit date: 05/05/98 pack-years: 35 how long ago did patient quit smokin second hand exposure: Yes alcohol intake: never substance use type: does not use caffeine: Yes Type: coffee Number of servings: 2 what type of physical activity do you participate in: none Review of Systems Const CONSTITUTIONAL: Negative anorexia, body ache, chills, daytime sleepiness, fever(s), night sweats, oral thrush, stops breathing during sleep, weight loss, sleeping in chair, fatigue, weight loss, weight gain, frequent colds, seasonal allergies, other, headache(s) or orthopnea EETM Ear Nose Throat Mouth: Positive hearing normal; negative hard of hearing, hoarseness, dry mouth in morning, change in vision, itchy eyes, eye pain, swallowing Difficulty, ear pain, nose bleed, headache(s), mouth pain, nasal congestion, nasal discharge, post nasal drip, sinus pain, sinus pressure, sore throat or other Cardio Cardiovascular: Negative chest pain, chest pain at rest, chest pain with activity, irregular heart rhythm, edema, shortness of breath when lying down, palpitations, murmur or other Resp Respiratory: Positive as per HPI and shortness of breath shortness of breath: Positive with activity; negative pain with cough, wheezing, chest congestion, cough, chest tightness, pain on inspiration, inhalers, increase use of rescue inhalers, snoring, apnea or other Gastro Gastrointestional: Negative bloody stools, change in appetite, difficulty swallowing, reflux, hematemesis, melena stool, loose stool, constipation or other Genitourinary: Negative blood in urine, nocturia, pain with urination or other Musc Musculoskeletal: Negative body pain, back pain, neck pain or other Skin/Breast Skin/Breast: Negative dry skin, itching, rash, unusual bruising, breast lump or other Neuro Neurological: Negative restless legs, confusion, weakness or other Psych Psychocological: Negative abnormal sleep pattern, anxiety, thoughts of hurting self/others, hopelessness or other Lymph Lymphatic: Negative easy bleeding, easy bruising, swollen lymph nodes or other Exam Const Constitutional: Positive conversant, cooperative, in no acute respiratory distress, well developed, well nourished, good hygiene and obese Head Head: Positive normocephalic and atraumatic; negative cyanosis of lips/distal nose Eyes Eye: Positive clear conjunctiva; negative nystagmus or scleral abnormality Ears Ear: Positive hearing normal and external ears normal; negative hard of hearing Nose Nose: Positive external nose normal; negative epistaxis Mouth Mouth: Positive oral mucosae normal, no lesions and posterior oropharynx is adequate; negative post nasal drip Mallampati Score: II: Mallampati Score Neck Neck: Positive normal visual inspection and trachea midline; negative lymphadenopathy Chest Wall Chest: Positive symmetric chest movement Normal AP diameter. Resp lung sounds: Positive clear to auscultation and good air exchange; negative wheezes, rhonchi or rales Cardio Cardiac: Positive regular rate, regular rhythm, S1 normal and S2 normal; negative murmur, rub or gallop GI GI: Positive normal bowel sounds and obese Soft without distention Genitourinary: Positive deferred Musc Musculoskeletal: Positive steady gait Skin Pulmonary Skin Exam: Positive intact; negative rash, lesion or ulcers Pulses Pulse: Yes Pedal pulses present: Extremities Extremities: No clubbing, No cyanosis, No edema Neuro Neurologic: Yes conversant, Yes no focal neuro deficits, Yes cooperative Lymph Lymphatic: No lymphadenopathy Psych Appearance: Positive grossly normal Mental Status: Positive mental status grossly normal Mood: Positive congruent mood Affect: Positive normal affect Coding Level of Care Code Off vis,est,level 3 Diagnoses Restrictive lung disease J98.4 Dyspnea on exertion R06.09 Lung nodule R91.1 KAYCEE (obstructive sleep apnea) G47.33 03/05/18 1233 <Electronically signed by Noel Dunlap DO> Date Noel Juarez Signature: Date (if applicable) CC: Rhett Dorsey MD PROGRESS Observed: 02/25/2018 Status: COMPLETED Source: [place] 4:03 PM [facility] REPOSITORY HNO ID: [id number] Author: Annalee Miller LPN Service: (none) Author Type: (none) Type: Progress Notes Filed: 02/25/2018 4:10 PM Note Text: Manual Readin/68 Pulse: 74 Reason for blood pressure check - Last BP elevated and Medication adjustment Patient is: Taking medication as prescribed Yes Took medication today Yes If no, date medication last taken N/A Experiencing side effects No BP was elevated at last appt 02/10/18. Atenolol was increased to 50mg 1 1/2 tablets twice daily. Tolerating medication change well. Denies any chest pain, unusual shortness of breath, dizziness, or headaches. Daily caffeine use. Past personal history of tobacco use; no current exposure. Alert and oriented. Pt has been identified by name and birthdate: Yes Allergies reviewed: Yes Latex allergy: no. Medication - prescribed and OTC reviewed and updated: Yes Do you need any prescription refills prior to your next visit: No Health Maintenance: Reviewed and not up to date and provider notified Patient advised to continue with current medications and would be contacted with any further instructions after review by PCP. Annalee Miller LPN CNNURSE Observed: 02/25/2018 Status: COMPLETED Source: [place] 3:45 PM [facility] REPOSITORY Nurse Visit (FAMPWS) LAURYN BRUMFIELD ([id number]) 1950 F Date Time Provider Department 02/25/18 3:45 PM OR NURSE FAMPWS During your visit today, we recorded the following information about you: Pulse Blood pressure 74/minute 136/68 Annalee Miller LPN 02/25/2018 4:10 PM Signed Manual Readin/68 Pulse: 74 Reason for blood pressure check - Last BP elevated and Medication adjustment Patient is: Taking medication as prescribed Yes Took medication today Yes If no, date medication last taken N/A Experiencing side effects No BP was elevated at last appt 02/10/18. Atenolol was increased to 50mg 1 1/2 tablets twice daily. Tolerating medication change well. Denies any chest pain, unusual shortness of breath, dizziness, or headaches. Daily caffeine use. Past personal history of tobacco use; no current exposure. Alert and oriented. Pt has been identified by name and birthdate: Yes Allergies reviewed: Yes Latex allergy: no. Medication - prescribed and OTC reviewed and updated: Yes Do you need any prescription refills prior to your next visit: No Health Maintenance: Reviewed and not up to date and provider notified Patient advised to continue with current medications and would be contacted with any further instructions after review by PCP. Annalee Miller LPN Referring Provider: RHETT DORSEY [[id number]] Allergies As of Date: 02/25/2018 Noted Allergy Reaction metal [Other] 01/01/2007 2 - Rash 9 - Itching NICKEL 01/01/2007 2 - Rash 9 - Itching AMLODIPINE 04/07/2012 7 - Swelling LISINOPRIL 11/25/2011 3 - Cough Date Reviewed: 02/10/2018 Reviewed by: Mahsa Daily Customer Service Agent - Fully Assessed Reason for Visit: Blood Pressure Check [195] Primary Visit Diagnosis:Essential hypertension, benign [I10] Prescriptions as of 02/25/2018 Sig: ATENOLOL 50 MG TABLET Take 1.5 tablets by mouth twi* HYDROCHLOROTHIAZIDE 25 MG TAB* Take 1 tablet by mouth once d* FLUOXETINE 20 MG CAPSULE TAKE 4 CAPSULES BY MOUTH ONCE* SPIRONOLACTONE 25 MG TABLET Take 1 tablet by mouth once d* NAPROXEN 500 MG TABLET TAKE 1 TABLET BY MOUTH TWICE * ORPHENADRINE CITRATE ER 100 M* TAKE 1 TABLET BY MOUTH EVERY * PENCICLOVIR 1 % TOPICAL CREAM Apply 1 application to affect* TRAZODONE 50 MG TABLET TAKE 1 TABLET BY MOUTH DAILY * RESTASIS MULTIDOSE 0.05 % EYE* METFORMIN 500 MG TABLET TAKE 1 TABLET BY MOUTH TWICE * LOSARTAN 100 MG TABLET TAKE 1 TABLET BY MOUTH ONCE D* ONETOUCH VERIO STRIPS TEST BLOOD SUGAR(S) 2 TO 3 TI* ARMODAFINIL 250 MG TABLET Take 250 mg by mouth once milton* COLESTIPOL 1 GRAM TABLET TAKE 1 TABLET BY MOUTH ONCE D* LANCETS Test blood sugar(s) 2 to 3 ti* LANCETS 33 GAUGE USE INSTRUCTED GABAPENTIN 100 MG CAPSULE Take 100 mg by mouth three ti* DAILY MULTIVITAMIN TABLET Take one(1) tablet daily. ADULT LOW DOSE ASPIRIN 81 MG * Take one(1) tablet daily. CALCIUM 600 + D(3) 600 MG-125* Take one(1) tablet daily. BENZONATATE 100 MG CAPSULE Take 1 capsule by mouth three* Patient not taking: Reported on 11/04/2017 Problem List As Of Date 02/25/2018 Noted Resolved BENIGN HYPERTENSION [I10] INVALID FOR* Myalgia and myositis, unspecified [[id number]] INVALID FOR*10/07/2016 Insomnia [G47.00] INVALID FOR* ESOPHAGEAL REFLUX [K21.9] INVALID FOR* Actinic keratosis [L57.0] INVALID FOR*07/04/2014 Inflamed seborrheic keratosis [L82.0] INVALID FOR*07/04/2014 Other chronic 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 radiation*INVALID FOR*07/04/2014 SOLAR LENGINES///DYSCHROMIA OTHER [L81.9] INVALID FOR*07/04/2014 Hyperlipidemia [E78.5] INVALID FOR* Sleep apnea [G47.30] INVALID FOR* More... Glucose intolerance (pre-diabetes) [R73.03] INVALID FOR*09/09/2013 Arthritis of knee, degenerative [M17.10] INVALID FOR*10/07/2016 Type 2 diabetes mellitus without complication (*INVALID FOR* Spinal stenosis of lumbar region [M48.061] INVALID FOR* Primary osteoarthritis of left knee [M17.12] INVALID FOR* Pain in left knee [M25.562] INVALID FOR*10/07/2016 Marital conflict [Z63.0] INVALID FOR*10/07/2016 Adjustment disorder with mixed anxiety and depr*INVALID FOR* Obesity (BMI 30.0-34.9) [E66.9] INVALID FOR* Inflammatory polyarthritis (HCC) [M06.4] INVALID FOR* More... Family history of ischemic heart disease [Z82.4*INVALID FOR* More... Obesity (BMI 35.0-39.9 without comorbidity) [E6*INVALID FOR* Aortic valve sclerosis [I35.8] INVALID FOR* Asthma with chronic obstructive pulmonary disea*INVALID FOR* More... Encounter Status:Closed by ANNALEE MILLER LPN on 02/25/18 PROGRESS Observed: 02/10/2018 Status: COMPLETED Source: [place] 5:10 PM [facility] [place] REPOSITORY HNO ID: [id number] Author: Rhett Dorsey Service: (none) Author Type: Physician Type: Progress Notes Filed: 02/10/2018 6:12 PM Note Text: Patient presents with: Recheck: 6 month F/U HPI: Patient presents today for office visit for recheck since last visit. NEURO: labs were good. She wondered at last visit if her memory issues were stress related. She does admit to being under a large amount of stress. PSYCH:declines further med changes. Discussed issues she is dealing with it. HYPERTENSION:bp is slightly up today. No chest pain or shortness of breath. No edema. DM:last sugars are stable Last hba1c are ok. No new neuro complaints. No numbness or weakness. No headache. Had ct of chest recently. Component Latest Ref Rng AND Units 01/09/2018 01/09/2018 10:39 AM 10:39 AM WBC 3.70 - 11.00 k/uL 9.10 RBC 3.90 - 5.20 m/uL 4.77 Hemoglobin 11.5 - 15.5 g/dL 14.1 Hematocrit 36.0 - 46.0 % 40.6 MCV 80.0 - 100.0 fL 85.1 MCH 26.0 - 34.0 pG 29.6 MCHC 30.5 - 36.0 g/dL 34.7 RDW-CV 11.5 - 15.0 % 13.9 Platelet Count 150 - 400 k/uL 198 MPV 9.0 - 12.7 fL 12.6 Neut% % 52.0 Abs Neut (ANC) 1.45 - 7.50 k/uL 4.73 Lymph% % 34.7 Abs Lymph 1.00 - 4.00 k/uL 3.16 Sterling% % 9.3 Abs Sterling <0.87 k/uL 0.85 Eosin% % 2.9 Abs Eosin <0.46 k/uL 0.26 Baso% % 1.1 Abs Baso <0.11 k/uL 0.10 Nucleated Reds 0 /100 WBC 0.0 Absolute nRBC <0.01 k/uL <0.01 Diff Type Auto Diff Protein, Total 6.3 - 8.0 g/dL 6.8 6.7 Albumin 3.9 - 4.9 g/dL 4.2 Calcium 8.5 - 10.2 mg/dL 10.2 Bilirubin, Total 0.2 - 1.3 mg/dL 0.5 Alkaline Phosphatase 32 - 117 U/L 92 AST 13 - 35 U/L 31 Glucose 74 - 99 mg/dL 164 (H) BUN 7 - 21 mg/dL 17 Creatinine 0.58 - 0.96 mg/dL 0.47 (L) Sodium 136 - 144 mmol/L 136 Potassium 3.7 - 5.1 mmol/L 4.2 Chloride 97 - 105 mmol/L 100 CO2 22 - 30 mmol/L 22 Anion Gap 9 - 18 mmol/L 14 ALT 7 - 38 U/L 27 eGFR- >60 eGFR-All Other Races . >60 Albumin for SPE 3.37 - 4.23 gm/dL 3.76 Alpha 1 Globulin 0.18 - 0.31 gm/dL 0.23 Alpha 2 Globulin 0.52 - 0.97 gm/dL 0.56 Beta Globulin 0.84 - 1.36 gm/dL 1.19 Gamma Globulin 0.70 - 1.44 gm/dL 0.96 Interpretation (Prot Electro) SEE COMMENT M-Protein Location N/A M-Protein Concentration 0.00 gm/dL 0.00 SPE Staff Review Reviewed by Anselmo Heredia MD ([id number]) Total Cholesterol, Nonfasting <200 mg/dL 183 Triglycerides, Nonfasting <150 mg/dL 293 (H) HDL Cholesterol, Nonfasting >39 mg/dL 37 (L) LDL Cholesterol, Nonfasting <100 mg/dL 87 Non HDL Cholesterol, Nonfasting <130 mg/dL 146 (H) VLDL Cholesterol, Nonfasting <30 mg/dL 59 (H) Total Chol/HDL Ratio, Nonfasting <5.10 mg/dL 4.95 LDL/HDL Ratio, Nonfasting <2.54 mg/dL 2.35 Creatinine, Ur Random (UCRR) 20 - 300 mg/dL 36.8 Albumin, Urine Random 0.0 - 23.0 mg/L <12.0 Albumin/Creat Ratio 0 - 30 mg/g Not calculated Syphilis IgG Qualitative Nonreactive Nonreactive Syphilis IgG AI <0.2 Vitamin B12 232 - 1,245 pg/mL 553 Folate >4.7 ng/mL 18.6 WSR 0 - 20 mm/hr 5 TSH 0.400 - 5.500 uU/mL 2.600 MEDICATIONS: Current Outpatient Prescriptions: atenolol (TENORMIN) 50 mg tablet Take 1 tablet by mouth twice daily. hydroCHLOROthiazide (HYDRODIURIL, ESIDRIX) 25 mg tablet Take 1 tablet by mouth once daily. FLUoxetine (PROZAC) 20 mg capsule TAKE 4 CAPSULES BY MOUTH ONCE DAILY. spironolactone (ALDACTONE) 25 mg tablet Take 1 tablet by mouth once daily. naproxen (NAPROSYN) 500 mg tablet TAKE 1 TABLET BY MOUTH TWICE A DAY WITH MEALS NEEDED orphenadrine ER (NORFLEX) 100 mg tablet TAKE 1 TABLET BY MOUTH EVERY DAY penciclovir (DENAVIR) 1 % cream Apply 1 application to affected area twice daily as needed. traZODone (DESYREL) 50 mg tablet TAKE 1 TABLET BY MOUTH DAILY AT BEDTIME. RESTASIS MULTIDOSE 0.05 % drop metFORMIN (GLUCOPHAGE) 500 mg tablet TAKE 1 TABLET BY MOUTH TWICE DAILY WITH MEALS. losartan (COZAAR) 100 mg tablet TAKE 1 TABLET BY MOUTH ONCE DAILY. ONETOUCH VERIO test strip TEST BLOOD SUGAR(S) 2 TO 3 TIMES DAILY. DX: TYPE 2 DM - CONTROLLED E11.9 INSULIN: NO armodafinil (NUVIGIL) 250 mg tab Take 250 mg by mouth once daily. colestipol (COLESTID) 1 gram tablet TAKE 1 TABLET BY MOUTH ONCE DAILY. Lancets lancets Test blood sugar(s) 2 to 3 times daily. Dx: Type 2 DM - Controlled E11.9 Insulin: No. Uses One Touch Verio Meter. lancets (ONE TOUCH DELICA) 33 gauge misc USE INSTRUCTED gabapentin (NEURONTIN) 100 mg capsule Take 100 mg by mouth three times daily. multivitamins(DAILY MULTIVITAMIN TAB) Take one(1) tablet daily. aspirin(ADULT LOW DOSE ASPIRIN 81 MG TAB, DELAYED RELEASE) Take one(1) tablet daily. CALCIUM 600 + D 600 MG-125 UNIT TAB Take one(1) tablet daily. benzonatate (TESSALON PERLE) 100 mg capsule Take 1 capsule by mouth three times daily as needed. (Patient not taking: Reported on 11/04/2017 ) No current facility-administered medications for this visit. ALLERGIES: ALLERGIES Allergen Reactions - Metal [Other] Rash, Itching - Nickel Rash, Itching - Amlodipine Swelling - Lisinopril Cough PAST MEDICAL HISTORY Diagnosis Date - Cardiomyopathy in other diseases classified elsewhere echo 2008-normal EF - Complication of anesthesia - Diverticulosis of colon (without mention of hemorrhage) - Esophageal reflux Gastroesophageal reflux - Internal hemorrhoids without mention of complication - Mental disorder - Myalgia and myositis, unspecified Fibromyalgia (myalgia and myositis) - PMH - PAST MEDICAL HISTORY OF pre diabetic - Sleep apnea - Unspecified essential hypertension Essential hypertension PAST SURGICAL HISTORY Procedure Laterality Date - COLONOSCOP W/ OR W/O [facility] SPEC 1999 Colonoscopy-due 2009 - COLONOSCOP W/ OR W/O [facility] SPEC 01/29/10 - DENTAL SURGERY PROCEDURE 04/2010 laser top right teeth - EGD W/O OR W/BRUSH/WASH 05/2003 EGD - 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 - Stroke Mother - Alzheimer's Disease Father - Osteoporosis Sister - Thyroid Daughter - Cancer Brother kidney ca./renal cell - Coronary Artery Disease Brother OR, has a bad disc is the same as above - Cancer Maternal Grandmother liver ca. 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 Hasn't smoked since she was 48yrs. Alcohol use: No Drug use: No Sexual activity: No Reviewed current medications, allergies, past medical history, surgical history, family history and social history today. REVIEW OF SYSTEMS All other reviewed and negative other than HPI. HEALTH MAINTENANCE: Reviewed health maintenance issues today and recommended the following in detail. PAP EVERY 3 YEARS (65-80 YEARS OLD) due on 01/10/2013 DTAP,TDAP,TD(2 - Td) due on 01/01/2017 DILATED RETINAL EXAM -recommended VITALS: BP 146/70 (BP Site: Left Arm, BP Position: Sitting, BP Cuff Size: Large Adult) Pulse 84 Temp 36.7 ?C (98 ?F) (Tympanic) Resp 16 Wt 101.2 kg (223 lb) SpO2 96% BMI 36.93 kg/m? Last 4 Encounter Wt Readings: Date: Wt: 02/10/2018 101.2 kg (223 lb) 01/09/2018 95.7 kg (211 lb) 12/02/2017 98.9 kg (218 lb) 11/04/2017 99.2 kg (218 lb 9.6 oz) PHYSICAL EXAMINATION: General appearance: Well appearing, alert, in no acute distress, well-hydrated, well nourished. Skin: Skin color, texture, turgor normal, no suspicious rashes or lesions Head: Normocephalic, no masses, lesions, tenderness or abnormalities Lungs: Lungs clear to auscultation. No wheezing, rhonchi, rales Heart: RRR without murmur, gallop, or rubs. No ectopy Abdomen: Normal abdominal exam, Abdomen soft, non-tender. Bowel sounds normal. No masses, organomegaly Extremities: No deformities, edema, skin discoloration, clubbing or cyanosis. Good capillary refill. Musculoskeletal: No joint swelling, deformity, or tenderness Peripheral pulses: Normal MINI-MENTAL STATE EXAMINATION (MMSE) Make the patient comfortable and establish rapport. Ask questions in the order listed. Total possible score is 30. ORIENTATION 1. What is the (year) (season) (date) (day) (month)? Max score=5 Patient's score=5 2. Where are we? (state) (county) (town or city) (hospital) (floor)? Max score=5 Patient's score=5 REGISTRATION Ask the patient if you may test his/her memory. Then say the names of 3 unrelated objects, clearly and slowly, about one second for each (eg, apple, table, jennifer). After you have said all 3, ask him/her to repeat them. This first repetition determines the score(0-3), but keep saying them until he/she can repeat all 3, up to 6 trials. Max score=3 Patient's score=3 ATTENTION AND CALCULATION Ask the patient to begin with 100 and count backwards by 7. Stop after 5 subtractions (93, 86, 79, 72, 65). Score the total number of correct answers. If the patient cannot or will not perform the serial 7s task, ask him/her to spell the word WORLD backwards. The score is the number of letters in the correct order (eg, DLROW=5; DLRW=4; DLORW, DLW=3; OW=2; DRLWO=1). Max score=5 Patient's score=5 RECALL Ask the patient to recall the 3 items repeated above (eg, apple, table, jennifer). Max score=3 Patient's score=2 LANGUAGE Naming: Show the patient a wristwatch and ask him/her what it is. Repeat for pencil. Max score=2 Patient's score=2 Repetition: Ask the patient to repeat the phrase No ifs, ands, or buts: after you. Max score=1 Patient's score=1 3-Stage Command: Give the patient a piece of blank paper and ask him/her to take a piece of paper in your right hand, fold it in half, put it on the floor. Score 1 point for each part correctly executed. Max score=3 Patient's score=3 Reading: On a blank piece of paper, print the sentence CLOSE YOUR EYES in letters large enough for the patient to see clearly. Ask him/her to read it and do what it says. Score 1 point only if he/she actually closes his/her eyes. Max score=1 Patient's score=1 Writing: Give the patient a blank piece of paper and ask him/her to write a sentence. Do not dictate a sentence; it is to be written spontaneously. It must contain a subject and verb and be sensible. Correct grammar and punctuation are not necessary. Max score=1 Patient's score=1 Copying: Ask the patient to copy the figure of intersecting pentagons exactly as it is. All 10 angles must be present and 2 must intersect to form a 4-sided figure to score 1 point. Tremor and rotation are ignored. Max score=1 Patient's score=1 MAXIMUM TOTAL SCORE = 30 TOTAL SCORE = 29/30 Suggested guideline for determining the severity of cognitive impairment: Mild: MMSE>21 Moderate: MMSE 10-20 Severe: MMSE<9 Expected decline in MMSE scores in untreated mild to moderate Alzheimer's patient is 2 to 4 points per year. *Adapted from Folstein et al.1 and Christian and Jaystein2. (c) 1974, 1997 [employer] Used with permission. References: 1. Folstein MF, Folstein SE, Adry DC. Mini- Mental State: a practical method for grading the cognitive state of patients for the clinician. J Psychiatr Res. 1975; 12:189-198. 2. JR Christian, Hilda MF, Mini-Mental State Examination (MMSE). Psychopharm Bull. 1988;24:689-692. 3. Jesica JT, Nasim FJ, Radha RD, Abe A, Merry F. Neuropsychological function in Alzheimer's disease: pattern of impairment and rates of progression. Arch Neurol. 1988;45:263-268. 4. Jin JA, Christie B, Art S-P, Luis WALKER. Predictors of cognitive and functional progression in patients with probable Alzheimer's disease. Neurology. 1992;42:5470-7221. ASSESSMENT/PLAN: 1. Type 2 diabetes mellitus without complication, without long-term current use of insulin (HCC) - ICD9: 250.00, ICD10: E11.9 (primary diagnosis) Controlled. - Continue current medications - HGB A1C 2. Sleep apnea, unspecified type - ICD9: 780.57, ICD10: G47.30 - continue to follow 3. Hyperlipidemia, unspecified hyperlipidemia type - ICD9: 272.4, ICD10: E78.5 - good control - Continue current medication. 4. Essential hypertension, benign - ICD9: 401.1, ICD10: I10 - suboptimal control - Increase atenolol - Recommended regular aerobic exercise. - Recommend home blood pressure monitoring, to bring results in on next visit - Goal of BP <130/80 - ATENOLOL 50 MG TABLET - bp check and pulse check in two weeks. 5. Inflammatory polyarthritis (HCC) - ICD9: 714.9, ICD10: M06.4 - continue to follow. 6. Memory loss - ICD9: 780.93, ICD10: R41.3 - call if worsens. 7. Anxiety - ICD9: 300.00, ICD10: F41.9 - continue to follow. Rhett Dorsey MD RTO in three months and prnAg QUINTERO Observed: 02/10/2018 Status: COMPLETED Source: [place] 4:40 PM [facility] REPOSITORY Office Visit (FAMPWS) LAURYN BRUMFIELD ([id number]) 1950 F Date Time Provider Department 02/10/18 4:40 PM RHETT DORSEY [facility] [place] During your visit today, we recorded the following information about you: Temperature Pulse Respiration Blood pressure 98 degrees 84/minute 16/minute 146/70 Weight 101.2 kg Rhett Dorsey MD 02/10/2018 6:12 PM Signed Patient presents with: Recheck: 6 month F/U HPI: Patient presents today for office visit for recheck since last visit. NEURO: labs were good. She wondered at last visit if her memory issues were stress related. She does admit to being under a large amount of stress. PSYCH:declines further med changes. Discussed issues she is dealing with it. HYPERTENSION:bp is slightly up today. No chest pain or shortness of breath. No edema. DM:last sugars are stable Last hba1c are ok. No new neuro complaints. No numbness or weakness. No headache. Had ct of chest recently. Component Latest Ref Rng AND Units 01/09/2018 01/09/2018 10:39 AM 10:39 AM WBC 3.70 - 11.00 k/uL 9.10 RBC 3.90 - 5.20 m/uL 4.77 Hemoglobin 11.5 - 15.5 g/dL 14.1 Hematocrit 36.0 - 46.0 % 40.6 MCV 80.0 - 100.0 fL 85.1 MCH 26.0 - 34.0 pG 29.6 MCHC 30.5 - 36.0 g/dL 34.7 RDW-CV 11.5 - 15.0 % 13.9 Platelet Count 150 - 400 k/uL 198 MPV 9.0 - 12.7 fL 12.6 Neut% % 52.0 Abs Neut (ANC) 1.45 - 7.50 k/uL 4.73 Lymph% % 34.7 Abs Lymph 1.00 - 4.00 k/uL 3.16 Sterling% % 9.3 Abs Sterling <0.87 k/uL 0.85 Eosin% % 2.9 Abs Eosin <0.46 k/uL 0.26 Baso% % 1.1 Abs Baso <0.11 k/uL 0.10 Nucleated Reds 0 /100 WBC 0.0 Absolute nRBC <0.01 k/uL <0.01 Diff Type Auto Diff Protein, Total 6.3 - 8.0 g/dL 6.8 6.7 Albumin 3.9 - 4.9 g/dL 4.2 Calcium 8.5 - 10.2 mg/dL 10.2 Bilirubin, Total 0.2 - 1.3 mg/dL 0.5 Alkaline Phosphatase 32 - 117 U/L 92 AST 13 - 35 U/L 31 Glucose 74 - 99 mg/dL 164 (H) BUN 7 - 21 mg/dL 17 Creatinine 0.58 - 0.96 mg/dL 0.47 (L) Sodium 136 - 144 mmol/L 136 Potassium 3.7 - 5.1 mmol/L 4.2 Chloride 97 - 105 mmol/L 100 CO2 22 - 30 mmol/L 22 Anion Gap 9 - 18 mmol/L 14 ALT 7 - 38 U/L 27 eGFR- >60 eGFR-All Other Races . >60 Albumin for SPE 3.37 - 4.23 gm/dL 3.76 Alpha 1 Globulin 0.18 - 0.31 gm/dL 0.23 Alpha 2 Globulin 0.52 - 0.97 gm/dL 0.56 Beta Globulin 0.84 - 1.36 gm/dL 1.19 Gamma Globulin 0.70 - 1.44 gm/dL 0.96 Interpretation (Prot Electro) SEE COMMENT M-Protein Location N/A M-Protein Concentration 0.00 gm/dL 0.00 SPE Staff Review Reviewed by Anselmo Heredia MD ([id number]) Total Cholesterol, Nonfasting <200 mg/dL 183 Triglycerides, Nonfasting <150 mg/dL 293 (H) HDL Cholesterol, Nonfasting >39 mg/dL 37 (L) LDL Cholesterol, Nonfasting <100 mg/dL 87 Non HDL Cholesterol, Nonfasting <130 mg/dL 146 (H) VLDL Cholesterol, Nonfasting <30 mg/dL 59 (H) Total Chol/HDL Ratio, Nonfasting <5.10 mg/dL 4.95 LDL/HDL Ratio, Nonfasting <2.54 mg/dL 2.35 Creatinine, Ur Random (UCRR) 20 - 300 mg/dL 36.8 Albumin, Urine Random 0.0 - 23.0 mg/L <12.0 Albumin/Creat Ratio 0 - 30 mg/g Not calculated Syphilis IgG Qualitative Nonreactive Nonreactive Syphilis IgG AI <0.2 Vitamin B12 232 - 1,245 pg/mL 553 Folate >4.7 ng/mL 18.6 WSR 0 - 20 mm/hr 5 TSH 0.400 - 5.500 uU/mL 2.600 MEDICATIONS: Current Outpatient Prescriptions: atenolol (TENORMIN) 50 mg tablet Take 1 tablet by mouth twice daily. hydroCHLOROthiazide (HYDRODIURIL, ESIDRIX) 25 mg tablet Take 1 tablet by mouth once daily. FLUoxetine (PROZAC) 20 mg capsule TAKE 4 CAPSULES BY MOUTH ONCE DAILY. spironolactone (ALDACTONE) 25 mg tablet Take 1 tablet by mouth once daily. naproxen (NAPROSYN) 500 mg tablet TAKE 1 TABLET BY MOUTH TWICE A DAY WITH MEALS NEEDED orphenadrine ER (NORFLEX) 100 mg tablet TAKE 1 TABLET BY MOUTH EVERY DAY penciclovir (DENAVIR) 1 % cream Apply 1 application to affected area twice daily as needed. traZODone (DESYREL) 50 mg tablet TAKE 1 TABLET BY MOUTH DAILY AT BEDTIME. RESTASIS MULTIDOSE 0.05 % drop metFORMIN (GLUCOPHAGE) 500 mg tablet TAKE 1 TABLET BY MOUTH TWICE DAILY WITH MEALS. losartan (COZAAR) 100 mg tablet TAKE 1 TABLET BY MOUTH ONCE DAILY. ONETOUCH VERIO test strip TEST BLOOD SUGAR(S) 2 TO 3 TIMES DAILY. DX: TYPE 2 DM - CONTROLLED E11.9 INSULIN: NO armodafinil (NUVIGIL) 250 mg tab Take 250 mg by mouth once daily. colestipol (COLESTID) 1 gram tablet TAKE 1 TABLET BY MOUTH ONCE DAILY. Lancets lancets Test blood sugar(s) 2 to 3 times daily. Dx: Type 2 DM - Controlled E11.9 Insulin: No. Uses One Touch Verio Meter. lancets (ONE TOUCH DELICA) 33 gauge misc USE INSTRUCTED gabapentin (NEURONTIN) 100 mg capsule Take 100 mg by mouth three times daily. multivitamins(DAILY MULTIVITAMIN TAB) Take one(1) tablet daily. aspirin(ADULT LOW DOSE ASPIRIN 81 MG TAB, DELAYED RELEASE) Take one(1) tablet daily. CALCIUM 600 + D 600 MG-125 UNIT TAB Take one(1) tablet daily. benzonatate (TESSALON PERLE) 100 mg capsule Take 1 capsule by mouth three times daily as needed. (Patient not taking: Reported on 11/04/2017 ) No current facility-administered medications for this visit. ALLERGIES: ALLERGIES Allergen Reactions - Metal [Other] Rash, Itching - Nickel Rash, Itching - Amlodipine Swelling - Lisinopril Cough PAST MEDICAL HISTORY Diagnosis Date - Cardiomyopathy in other diseases classified elsewhere echo 2008-normal EF - Complication of anesthesia - Diverticulosis of colon (without mention of hemorrhage) - Esophageal reflux Gastroesophageal reflux - Internal hemorrhoids without mention of complication - Mental disorder - Myalgia and myositis, unspecified Fibromyalgia (myalgia and myositis) - PMH - PAST MEDICAL HISTORY OF pre diabetic - Sleep apnea - Unspecified essential hypertension Essential hypertension PAST SURGICAL HISTORY Procedure Laterality Date - COLONOSCOP W/ OR W/O [facility] SPEC 1999 Colonoscopy-due 2009 - COLONOSCOP W/ OR W/O [facility] SPEC 01/29/10 - DENTAL SURGERY PROCEDURE 04/2010 laser top right teeth - EGD W/O OR W/BRUSH/WASH 05/2003 EGD - 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 - Stroke Mother - Alzheimer's Disease Father - Osteoporosis Sister - Thyroid Daughter - Cancer Brother kidney ca./renal cell - Coronary Artery Disease Brother OR, has a bad disc is the same as above - Cancer Maternal Grandmother liver ca. 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 Hasn't smoked since she was 48yrs. Alcohol use: No Drug use: No Sexual activity: No Reviewed current medications, allergies, past medical history, surgical history, family history and social history today. REVIEW OF SYSTEMS All other reviewed and negative other than HPI. HEALTH MAINTENANCE: Reviewed health maintenance issues today and recommended the following in detail. PAP EVERY 3 YEARS (65-80 YEARS OLD) due on 01/10/2013 DTAP,TDAP,TD(2 - Td) due on 01/01/2017 DILATED RETINAL EXAM -recommended VITALS: BP 146/70 (BP Site: Left Arm, BP Position: Sitting, BP Cuff Size: Large Adult) Pulse 84 Temp 36.7 ?C (98 ?F) (Tympanic) Resp 16 Wt 101.2 kg (223 lb) SpO2 96% BMI 36.93 kg/m? Last 4 Encounter Wt Readings: Date: Wt: 02/10/2018 101.2 kg (223 lb) 01/09/2018 95.7 kg (211 lb) 12/02/2017 98.9 kg (218 lb) 11/04/2017 99.2 kg (218 lb 9.6 oz) PHYSICAL EXAMINATION: General appearance: Well appearing, alert, in no acute distress, well-hydrated, well nourished. Skin: Skin color, texture, turgor normal, no suspicious rashes or lesions Head: Normocephalic, no masses, lesions, tenderness or abnormalities Lungs: Lungs clear to auscultation. No wheezing, rhonchi, rales Heart: RRR without murmur, gallop, or rubs. No ectopy Abdomen: Normal abdominal exam, Abdomen soft, non-tender. Bowel sounds normal. No masses, organomegaly Extremities: No deformities, edema, skin discoloration, clubbing or cyanosis. Good capillary refill. Musculoskeletal: No joint swelling, deformity, or tenderness Peripheral pulses: Normal MINI-MENTAL STATE EXAMINATION (MMSE) Make the patient comfortable and establish rapport. Ask questions in the order listed. Total possible score is 30. ORIENTATION 1. What is the (year) (season) (date) (day) (month)? Max score=5 Patient's score=5 2. Where are we? (state) (county) (town or city) (hospital) (floor)? Max score=5 Patient's score=5 REGISTRATION Ask the patient if you may test his/her memory. Then say the names of 3 unrelated objects, clearly and slowly, about one second for each (eg, apple, table, jennifer). After you have said all 3, ask him/her to repeat them. This first repetition determines the score(0-3), but keep saying them until he/she can repeat all 3, up to 6 trials. Max score=3 Patient's score=3 ATTENTION AND CALCULATION Ask the patient to begin with 100 and count backwards by 7. Stop after 5 subtractions (93, 86, 79, 72, 65). Score the total number of correct answers. If the patient cannot or will not perform the serial 7s task, ask him/her to spell the word WORLD backwards. The score is the number of letters in the correct order (eg, DLROW=5; DLRW=4; DLORW, DLW=3; OW=2; DRLWO=1). Max score=5 Patient's score=5 RECALL Ask the patient to recall the 3 items repeated above (eg, apple, table, jennifer). Max score=3 Patient's score=2 LANGUAGE Naming: Show the patient a wristwatch and ask him/her what it is. Repeat for pencil. Max score=2 Patient's score=2 Repetition: Ask the patient to repeat the phrase No ifs, ands, or buts: after you. Max score=1 Patient's score=1 3-Stage Command: Give the patient a piece of blank paper and ask him/her to take a piece of paper in your right hand, fold it in half, put it on the floor. Score 1 point for each part correctly executed. Max score=3 Patient's score=3 Reading: On a blank piece of paper, print the sentence CLOSE YOUR EYES in letters large enough for the patient to see clearly. Ask him/her to read it and do what it says. Score 1 point only if he/she actually closes his/her eyes. Max score=1 Patient's score=1 Writing: Give the patient a blank piece of paper and ask him/her to write a sentence. Do not dictate a sentence; it is to be written spontaneously. It must contain a subject and verb and be sensible. Correct grammar and punctuation are not necessary. Max score=1 Patient's score=1 Copying: Ask the patient to copy the figure of intersecting pentagons exactly as it is. All 10 angles must be present and 2 must intersect to form a 4-sided figure to score 1 point. Tremor and rotation are ignored. Max score=1 Patient's score=1 MAXIMUM TOTAL SCORE = 30 TOTAL SCORE = 29/30 Suggested guideline for determining the severity of cognitive impairment: Mild: MMSE>21 Moderate: MMSE 10-20 Severe: MMSE<9 Expected decline in MMSE scores in untreated mild to moderate Alzheimer's patient is 2 to 4 points per year. *Adapted from Folstein et al.1 and Christian and Folagustin2. (c) 1974, 1997 [employer] Used with permission. References: 1. Jaystein MF, Folstein SE, Adry DC. Mini- Mental State: a practical method for grading the cognitive state of patients for the clinician. J Psychiatr Res. 1975; 12:189-198. 2. JR Christian, Hilda GUARDADO, Mini-Mental State Examination (MMSE). Psychopharm Bull. 1988;24:689-692. 3. Jesica JT, Nasim FJ, Radha RD, Abe A, Merry F. Neuropsychological function in Alzheimer's disease: pattern of impairment and rates of progression. Arch Neurol. 1988;45:263-268. 4. Jin JA, Christie B, Art SCarlyle P, Luis WALKER. Predictors of cognitive and functional progression in patients with probable Alzheimer's disease. Neurology. 1992;42:7096-5286. ASSESSMENT/PLAN: 1. Type 2 diabetes mellitus without complication, without long-term current use of insulin (HCC) - ICD9: 250.00, ICD10: E11.9 (primary diagnosis) Controlled. - Continue current medications - HGB A1C 2. Sleep apnea, unspecified type - ICD9: 780.57, ICD10: G47.30 - continue to follow 3. Hyperlipidemia, unspecified hyperlipidemia type - ICD9: 272.4, ICD10: E78.5 - good control - Continue current medication. 4. Essential hypertension, benign - ICD9: 401.1, ICD10: I10 - suboptimal control - Increase atenolol - Recommended regular aerobic exercise. - Recommend home blood pressure monitoring, to bring results in on next visit - Goal of BP <130/80 - ATENOLOL 50 MG TABLET - bp check and pulse check in two weeks. 5. Inflammatory polyarthritis (HCC) - ICD9: 714.9, ICD10: M06.4 - continue to follow. 6. Memory loss - ICD9: 780.93, ICD10: R41.3 - call if worsens. 7. Anxiety - ICD9: 300.00, ICD10: F41.9 - continue to follow. Rhett Dorsey MD RTO in three months and prn. Referring Provider: RHETT DORSEY [[id number]] Allergies As of Date: 02/10/2018 Noted Allergy Reaction metal [Other] 01/01/2007 2 - Rash 9 - Itching NICKEL 01/01/2007 2 - Rash 9 - Itching AMLODIPINE 04/07/2012 7 - Swelling LISINOPRIL 11/25/2011 3 - Cough Date Reviewed: 02/10/2018 Reviewed by: Mahsa Daily Customer Service Agent - Fully Assessed Reason for Visit: Recheck [92] Cmt: 6 month F/U Primary Visit Diagnosis:Type 2 diabetes mellitus without complication, without long-term current use of insulin (HCC) [E11.9] Other Visit Diagnoses:Sleep apnea, unspecified type [G47.30] Hyperlipidemia, unspecified hyperlipidemia type [E78.5] Essential hypertension, benign [I10] Inflammatory polyarthritis (HCC) [M06.4] Memory loss [R41.3] Anxiety [F41.9] Order(s):HGB A1C [[id number]] Order #: [id number] FUTURE atenolol (TENORMIN) 50 mg tabletTake 1.5 tablets by mouth twice daily.Disp: 270 tabletRfl: 1 Prescriptions as of 02/10/2018 Sig: PENCICLOVIR 1 % TOPICAL CREAM Apply 1 application to affect* TRAZODONE 50 MG TABLET TAKE 1 TABLET BY MOUTH DAILY * RESTASIS MULTIDOSE 0.05 % EYE* METFORMIN 500 MG TABLET TAKE 1 TABLET BY MOUTH TWICE * LOSARTAN 100 MG TABLET TAKE 1 TABLET BY MOUTH ONCE D* ONETOUCH VERIO STRIPS TEST BLOOD SUGAR(S) 2 TO 3 TI* ARMODAFINIL 250 MG TABLET Take 250 mg by mouth once [place]* COLESTIPOL 1 GRAM TABLET TAKE 1 TABLET BY MOUTH ONCE D* LANCETS Test blood sugar(s) 2 to 3 ti* LANCETS 33 GAUGE USE INSTRUCTED GABAPENTIN 100 MG CAPSULE Take 100 mg by mouth three ti* DAILY MULTIVITAMIN TABLET Take one(1) tablet daily. ADULT LOW DOSE ASPIRIN 81 MG * Take one(1) tablet daily. CALCIUM 600 + D(3) 600 MG-125* Take one(1) tablet daily. ATENOLOL 50 MG TABLET Take 1.5 tablets by mouth twi* HYDROCHLOROTHIAZIDE 25 MG TAB* Take 1 tablet by mouth once d* FLUOXETINE 20 MG CAPSULE TAKE 4 CAPSULES BY MOUTH ONCE* SPIRONOLACTONE 25 MG TABLET Take 1 tablet by mouth once d* NAPROXEN 500 MG TABLET TAKE 1 TABLET BY MOUTH TWICE * ORPHENADRINE CITRATE ER 100 M* TAKE 1 TABLET BY MOUTH EVERY * BENZONATATE 100 MG CAPSULE Take 1 capsule by mouth three* Patient not taking: Reported on 11/04/2017 Problem List As Of Date 02/10/2018 Noted Resolved BENIGN HYPERTENSION [I10] INVALID FOR* Myalgia and myositis, unspecified [BAJ2083] INVALID FOR*10/07/2016 Insomnia [G47.00] INVALID FOR* ESOPHAGEAL REFLUX [K21.9] INVALID FOR* Actinic keratosis [L57.0] INVALID FOR*07/04/2014 Inflamed seborrheic keratosis [L82.0] INVALID FOR*07/04/2014 Other chronic 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 radiation*INVALID FOR*07/04/2014 SOLAR LENGINES///DYSCHROMIA OTHER [L81.9] INVALID FOR*07/04/2014 Hyperlipidemia [E78.5] INVALID FOR* Sleep apnea [G47.30] INVALID FOR* More... Glucose intolerance (pre-diabetes) [R73.03] INVALID FOR*09/09/2013 Arthritis of knee, degenerative [M17.10] INVALID FOR*10/07/2016 Type 2 diabetes mellitus without complication (*INVALID FOR* Spinal stenosis of lumbar region [M48.061] INVALID FOR* Primary osteoarthritis of left knee [M17.12] INVALID FOR* Pain in left knee [M25.562] INVALID FOR*10/07/2016 Marital conflict [Z63.0] INVALID FOR*10/07/2016 Adjustment disorder with mixed anxiety and depr*INVALID FOR* Obesity (BMI 30.0-34.9) [E66.9] INVALID FOR* Inflammatory polyarthritis (HCC) [M06.4] INVALID FOR* More... Family history of ischemic heart disease [Z82.4*INVALID FOR* More... Obesity (BMI 35.0-39.9 without comorbidity) [E6*INVALID FOR* Aortic valve sclerosis [I35.8] INVALID FOR* Asthma with chronic obstructive pulmonary disea*INVALID FOR* More... Prescriptions ordered this encounter Disp Refills Start End ATENOLOL 50 MG TABLET 270 * 1 02/10/2018 08/09/2018 Route: ORAL Sig: Take 1.5 tablets by mouth twice daily. Medications Discontinued During This Encounter atenolol (TENORMIN) 50 mg tablet 180 * 3 01/07/2018 02/10/2018 Route: ORAL Sig: Take 1 tablet by mouth twice daily. Disc: Reason for discontinue is not on file. Follow-up and Disposition History Recorded Encounter Status:Closed by RHETT DORSEY MD on 02/10/18 CREATININE FINGERSTICK Collected: 02/05/2018 Status: F Source: [place] 8:03 AM [facility] [place] TYPE CODE TESTS RESULT OUT OF RANGE REFERENCE UNITS LAB L9100.0210 0.55-1.02 mg/dL Normal CREATININE WB < 0.6 LAB L9100.0220 >60 mL/min EGFR WB Normal > 60.0000 Performed By: #### L9100.0200 #### [facility] Point of Care [address] [place] [address] CHEST WITH CONTRAST Observed: 02/05/2018 Status: F Source: [place] 7:55 AM [facility] [place] [facility] Imaging Services [address] [place] [address] Chest WITH Contrast MR#: [id number] Acct: [id number] Name: LAURYN BRUMFIELD Rep #: [id number] : 1950 F 68 From: Michelle Valencia MD PCP: Rhett Dorsey MD Status: REG CLI Study: Chest WITH Contrast Date of Exam: 02/05/18 Exam# [id number] Ordering Dr: Angelita Godfrey RAIL TRACTOR OPERATOR-C STUDY: CT CHEST WITH CONTRAST REASON FOR EXAM: Female, 68 years old. LUNG DISEASE, DYSPNEA RADIATION DOSAGE (If Supplied By Facility): CTDIvol = ( 15.06 ) mGy, DLP = ( 557.35 ) mGycm TECHNIQUE: Transaxial imaging was performed following intravenous administration of 100 ml of Isovue 300 contrast material. Individualized dose optimization techniques were used for this CT. COMPARISON: None. FINDINGS: Multiple calcified nodules are seen in the left lung lower lobe largest measures approximately 8 mm are consistent with granulomas. There is no demonstrated pleural abnormality. Normal heart and pericardium. Normal mediastinum. Normal hilar regions. Normal enhanced pulmonary arteries. Normal aorta arch and descending thoracic aorta. There are multi-level degenerative changes of the thoracic spine. There is no demonstrated abnormality of the visualized upper abdomen. CT/Chest WITH Contrast IMPRESSION: There is no evidence of pneumonia or neoplasm. There is no evidence of interstitial fibrosis. Electronically Signed: Michelle Valencia MD at 9:53 EDT Tel , Service support , CC: Angelita Godfrey; Rhett Dorsey MD Rotary Engraver: Signed PULMONARY VISIT REPORT Observed: 01/23/2018 Status: F Source: [place] 10:36 AM [facility] Pulmonary Medicine [address] [place] [address] OFFICE VISIT Date of Service: 01/22/18 MR#: [id number] Acct: [id number] Name: LAURYN BRUMFIELD Abhijeet Rep #: [id number] : 1950 Provider: Angelita Godfrey Age/Sex: 68/F Location: [facility] [place].PMW Status: Signed Assessment AND Plan 1. Restrictive lung disease J98.4 Plan Continue to evaluate possible source of restrictive lung disease, as well as shortness of breath with a CT of the chest to identify possible pulmonary fibrosis or other causes of restriction such as hiatal hernia, pleural effusion, less likely mass. Discussed these possibilities with the patient, she conveys understanding and is agreeable to further testing. Follow-up with Dr. Dunlap in 3 months, at which time they will discuss test results. If testing comes back and leads us to order additional testing the patient will be called to be seen in the office sooner. She is also been encouraged to contact the office with any new or worsening symptoms in the meantime. Orders Orders: 2. SCHAFER (dyspnea on exertion) R06.09 Plan Unclear etiology at this time. Exertional hypoxia has been ruled out. Echocardiogram was unhelpful, at follow-up appointment may need to do an autoimmune panel. May require a right heart catheterization at some point if unable to identify a cause of restrictive defect and shortness of breath. Continue to monitor for exertional hypoxia likely every 6 months. Plan Detail Follow Up 3 Months (DMB) HPI F/U after testing: Chief Complaint: Shortness of breath on exertion HPI Comments Details: This patient presents the office today to follow- up on her shortness of breath on exertion, and to discuss recent test results. She is ambulatory and currently on room air. She has not been seen in the ED or urgent care for any respiratory illnesses since her last office visit. She has not required any antibiotics or prednisone for any breathing problems. Currently she experiences shortness of breath on exertion only, denies any shortness of breath with conversation or at rest. She denies any wheezing, S heaviness, chest pain or palpitations. She has occasional lower extremity edema. She denies any cough, sputum production or hemoptysis. She has not experienced any fever, chills or body aches. Pulmonary stress test completed on January 12, 2018 shows the patient was able to ambulate 1260 feet over the course of 6 minutes, she did not drop below 89% and therefore supplemental oxygen is not indicated at this time. She did drop to 89% during minutes for 5 and 6, therefore close interval watching is necessary. Pulmonary function test completed on January 09, 2018 and interpreted as showing a moderate restrictive ventilatory defect, consistent with possible interstitial lung disease. FVC 69% of predicted, FEV1 67% predicted, FEV1/FVC 75% of predicted, TLC 72% predicted, RV 66% of predicted and DLCO 62% predicted. Reviewed echocardiogram from March 2017 which was essentially normal with an EF of 55%. It did not mention diastolic dysfunction and did not estimate RVSP. Intake Vital Signs01/22/18 Height 5 ft 5.5 in 01/22/18 Weight: 225 lb Intake Visit Reasons: F/U after testing Accompanied by: Self Allergies amlodipine Adverse Reaction (Severe, Verified 01/22/18 09:11) Unknown nickel Adverse Reaction (Severe, Verified 01/22/18 09:11) Unknown lisinopril Adverse Reaction (Mild, Verified 01/22/18 09:11) Other - cough Medications armodafinil 250 mg tablet 250 mg PO QDAY tab 09/09/17 [History Confirmed 01/22/18] aspirin 81 mg tablet,delayed release 81 mg PO QDAY 09/09/17 [History Confirmed 01/22/18] calcium carbonate 600 mg (1,500 mg)-vitamin D3 200 unit tablet 1 tab PO QDAY 09/09/17 [History Confirmed 01/22/18] colestipol 1 gram tablet 1 g PO QDAY tab 09/09/17 [History Confirmed 01/22/18] fluoxetine 20 mg capsule See Label Instructions PO QDAY 09/09/17 [History Confirmed 01/22/18] gabapentin 100 mg capsule 100 mg PO TID cap 09/09/17 [History Confirmed 01/22/18] hydrochlorothiazide 25 mg tablet 25 mg PO QDAY 09/09/17 [History Confirmed 01/22/18] losartan 100 mg tablet 100 mg PO QDAY 09/09/17 [History Confirmed 01/22/18] orphenadrine citrate ER 100 mg tablet,extended release 100 mg PO QDAY tab 09/09/17 [History Confirmed 01/22/18] oxazepam 15 mg capsule 15 mg PO QHS PRN 09/09/17 [History Confirmed 01/22/18] trazodone 50 mg tablet 50 mg PO QHS tab 09/09/17 [History Confirmed 01/22/18] atenolol 50 mg tablet 50 mg PO BID tab 09/12/17 [History Confirmed 01/22/18] cyclosporine 0.05 % eye drops in a dropperette 1 drp OPHTHALMIC Q12H 10/30/17 [History Confirmed 01/22/18] metformin 500 mg tablet 500 mg PO BID 10/30/17 [History Confirmed 01/22/18] multivitamin tablet 1 tab PO QAM 10/30/17 [History Confirmed 01/22/18] naproxen 500 mg tablet 500 mg PO BID PRN 10/30/17 [History Confirmed 01/22/18] spironolactone 50 mg tablet 25 mg PO QDAY tab 10/30/17 [History Confirmed 01/22/18] [facility] Medical History Dyspnea on exertion (Chronic) Encounter for long-term current use of high risk medication (Chronic) Hypertension (Chronic) Hyperlipidemia (Chronic) Abnormal findings on diagnostic imaging of heart and coronary circulation (Chronic) Pericardial effusion (noninflammatory) (Chronic) Nonrheumatic mitral valve insufficiency (Chronic) Non-rheumatic tricuspid valve insufficiency (Chronic) Acoustic neuroma (Chronic) Benign hypertension (Chronic) Dyspnea on exertion (Acute) Hemoptysis (Acute) Skin cancer (Acute) Adjustment disorder with mixed anxiety and depressed mood (Chronic) Aortic valve sclerosis (Chronic) Bacterial sinusitis (Chronic) Esophageal reflux (Chronic) Inflammatory polyarthritis (Chronic) Insomnia (Chronic) Obesity (Chronic) Primary osteoarthritis of left knee (Chronic) Sleep apnea (Chronic) Spinal stenosis of lumbar region (Chronic) Type 2 diabetes mellitus (Chronic) Surgical History H/O brain surgery (Resolved) H/O foot surgery (Resolved) Family History Brother CAD (coronary artery disease) Cancer Mother CVA (cerebral vascular accident) Father Alzheimers disease Grandmother Cancer Diabetes Social History household members: none housing: house current occupational status: employed current occupation: [employer] pets and animals: Yes pets and animals: dog(s) Smoking Status: Former smoker quit date: 05/05/98 pack-years: 35 how long ago did patient quit smokin second hand exposure: Yes alcohol intake: never substance use type: does not use caffeine: Yes Type: coffee Number of servings: 2 what type of physical activity do you participate in: none Review of Systems Const CONSTITUTIONAL: Positive weight gain; negative anorexia, body ache, chills, daytime sleepiness, fever(s), night sweats, oral thrush, stops breathing during sleep, weight loss, sleeping in chair, fatigue, weight loss, frequent colds, seasonal allergies, other, headache(s) or orthopnea EETM Ear Nose Throat Mouth: Positive hearing normal; negative hard of hearing, hoarseness, dry mouth in morning, change in vision, itchy eyes, eye pain, swallowing Difficulty, ear pain, nose bleed, headache(s), mouth pain, nasal congestion, nasal discharge, post nasal drip, sinus pain, sinus pressure, sore throat or other Cardio Cardiovascular: Positive murmur; negative chest pain, chest pain at rest, chest pain with activity, irregular heart rhythm, edema, shortness of breath when lying down, palpitations or other Resp Respiratory: Positive as per HPI and shortness of breath shortness of breath: Positive with activity; negative pain with cough, wheezing, chest congestion, cough, chest tightness, pain on inspiration, inhalers, increase use of rescue inhalers, snoring, apnea or other Gastro Gastrointestional: Negative bloody stools, change in appetite, difficulty swallowing, reflux, hematemesis, melena stool, loose stool, constipation or other Genitourinary: Negative blood in urine, nocturia, pain with urination or other Musc Musculoskeletal: Negative body pain, back pain, neck pain or other Skin/Breast Skin/Breast: Negative dry skin, itching, rash, unusual bruising, breast lump or other Neuro Neurological: Negative restless legs, confusion, weakness or other Psych Psychocological: Negative abnormal sleep pattern, anxiety, thoughts of hurting self/others, hopelessness or other Lymph Lymphatic: Negative easy bleeding, easy bruising, swollen lymph nodes or other Exam Const Constitutional: Positive conversant, cooperative, in no acute respiratory distress, healthy appearing, well developed, well nourished, good hygiene and obese Head Head: Positive normocephalic and atraumatic; negative cyanosis of lips/distal nose Eyes Eye: Positive clear conjunctiva; negative nystagmus or scleral abnormality Ears Ear: Positive hearing normal and external ears normal; negative hard of hearing Nose Nose: Positive external nose normal and no nasal discharge; negative epistaxis Mouth Mouth: Positive oral mucosae normal, no lesions, good dentition, dentures and crowded posterior oropharynx; negative post nasal drip, malodorous breath or oral thrush present Mallampati Score: III: Mallampati Score Neck Neck: Positive normal visual inspection, full ROM and trachea midline; negative lymphadenopathy, JVD or tender Chest Wall Chest: Positive normal inspection of the chest and symmetric chest movement; negative increased A/P diameter Resp lung sounds: Positive clear to auscultation, good air exchange, normal expiratory time and normal respiratory effort; negative diminished, wheezes, rhonchi, rales, dullness to percussion or wheeze present on forced exhalation Cardio Cardiac: Positive murmur murmur: Positive systolic, RUSB and LUSB, regular rate, regular rhythm, S1 normal and S2 normal GI GI: Positive normal to inspection and obese; negative distended Genitourinary: Positive deferred Musc Musculoskeletal: Positive steady gait and ROM normal; negative kyphosis or scoliosis Skin Pulmonary Skin Exam: Positive intact; negative rash or lesion Pulses Pulse: Yes pulses normal x4 extremities Extremities Extremities: Yes capillary refill normal, No clubbing, No cyanosis, Yes edema Location: lower extremity location: Bilateral pitting trace Neuro Neurologic: Yes conversant, Yes no focal neuro deficits, Yes normal concentration, Yes understands questions, Yes cooperative, Yes normal cognition, Yes normal coordination Lymph Lymphatic: No lymphadenopathy, No tenderness, No cervical adenopathy Psych Appearance: Positive grossly normal, eye contact and well kempt Mental Status: Positive mental status grossly normal Mood: Positive congruent mood Affect: Positive normal affect Coding Level of Care Code Off vis,est,level 4 Diagnoses Restrictive lung disease J98.4 SCHAFER (dyspnea on exertion) R06.09 01/23/18 1036 <Electronically signed by Angelita ORTIZ> Date Angelita ORTIZ Cosigner Signature: Date (if applicable) CC: Rhett Dorsey MD 6 MINUTE WALK TEST Observed: 01/12/2018 Status: F Source: [facility] 1:21 PM [facility] [place] [facility] Pulmonary Services/Neurology [address] [place] [address] MR#: [id number] Acct: [id number] Name: LAURYN BRUMFIELD Rep #: [id number] : 1950 68 From: Noel Dunlap DO Referring Dr: Noel Dunlap D.O. Date: Ordering Dr: Sex: F C Location: [facility] PSN 6 Minute Walk Test - 6 Minute Walk Test 6 Minute Walk Test: 6 Minute Walk Test PSN:6-Minute Walk Test Start: 01/12/18 09:20 Freq: Status: Active Protocol: [id number] Document 01/12/18 09:20 [place] (Rec: 01/12/18 09:22 SF[place]ON [id number]) 6 Minute Walk Test Date Performed 01/12/18 Time Performed 09:00 Height 5 ft 5.5 in Weight: 215 lb Weight in Pounds 215.[address]: Noel Dunlap Assistive device used: None Pre-test Oxygen Delivery Method Room Air Pulse Ox (%) 94 Pulse Rate (60-100 beats/min) 70 Dyspnea Erick Scale (0-10) 0 Exertion Erick Scale (6-20) 6 1st minute Oxygen Delivery Method Room Air Pulse Ox (%) 93 Pulse Rate (60-100 beats/min) 92 2nd minute Oxygen Delivery Method Room Air Pulse Ox (%) 92 Pulse Rate (60-100 beats/min) 92 3rd minute Oxygen Delivery Method Room Air Pulse Ox (%) 90 Pulse Rate (60-100 beats/min) 97 4th minute Oxygen Delivery Method Room Air Pulse Ox (%) 89 Pulse Rate (60-100 beats/min) 101 H 5th minute Oxygen Delivery Method Room Air Pulse Ox (%) 89 Pulse Rate (60-100 beats/min) 101 H 6th minute Oxygen Delivery Method Room Air Pulse Ox (%) 89 Pulse Rate (60-100 beats/min) 102 H Dyspnea Erick Scale (0-10) 3 Exertion Erick Scale (6-20) 13 Post-test Oxygen Delivery Method Room Air Pulse Ox (%) 97 Pulse Rate (60-100 beats/min) 72 Full Laps Walked 21 Partial Lap, Number of Tiles Walked 21 Total Distance Walked (ft) 1260 - Interpretation Interpretation: The patient ambulated 1260 feet over the course of 6 minutes beginning on room air without assistive devices or breaks. Pretesting oxygen saturation was noted to be 94% on room air. With ambulation, the [place] oxygen saturation was 89%. This represents a significant exertional oxygen desaturation. - Recommendations Recommendations: There is no indication for the use of supplemental oxygen at this time. However, close interval follow-up is recommended, given the degree of oxygen desaturation noted during this study. 01/12/18 1321 <Electronically signed by Noel Dunlap DO> Date Noel Dunlap DO CC: Date Dictated: 01/12/181319 Date Transcribed: 01/12/181319 Rotary Engraver: Noel Dunlap DO Signed PULMONARY FUNCTION Observed: 01/09/2018 Status: F Source: [facility] REPORT COMP 2:22 PM [facility] [place] Pulmonary Services/Neurology [address] [place] [address] MR#: [id number] Acct: [id number] Name: LAURYN BRUMFIELD Rep #: [id number] : 1950 67 From: Cooper Mathews MD Referring Dr: Noel Dunlap D.O. Status: REG CLI Ordering Dr: Date: Location: [facility] Sex: F C COMPLETE PULMONARY FUNCTION TEST INTERPRETATION Brief HPI: Patient is a 67 year old female, currently under the care of Dr. Dunlap, who presents to [facility] for complete pulmonary function tests secondary to diagnosis of dyspnea on exertion. Respiratory therapist reports good effort and reproducible results. Interpretation: Forced expiration spirometry shows no large airways obstructive ventilatory defect with an FEV1 of 67% predicted. There is no significant bronchodilator response by ATS criteria. Spirograms are of good quality and plateau slowly, indicating slowly emptying areas of the lungs. The respiratory flow volume loop shows decreased expiratory flow rates at high lung volumes consistent with small airways obstruction. Lung volumes by body plethysmography show a decreased total lung capacity at 3.67 L, 72% predicted. All other lung volumes are reduced symmetrically. Diffusion capacity by carbon monoxide is decreased at 62% predicted. The airway resistance is elevated. No previous pulmonary function tests were available for review. Impression: Moderate restrictive ventilatory defect with a symmetric reduction diffusing capacity consistent with possible interstitial lung disease. 01/09/18 1422 <Electronically signed by Cooper Mathews MD> Date Cooper Mathews MD CC: Cooper Mathews MD; Noel Dunlap D.O.; Rhett Dorsey MD Date Dictated: 01/09/181420 Date Transcribed: 01/09/181420 Rotary Engraver: SHONDA Signed CBC AND DIFFERENTIAL Collected: 01/09/2018 Status: F Source: [place] 10:39 [facility] [place] REPOSITORY TYPE CODE TESTS RESULT OUT OF REFERENCE UNITS RANGE LAB WBC 3.70-11.00 k/uL WBC 9.10 LAB RBC 3.90-5.20 m/uL RBC 4.77 LAB HGB 11.5-15.5 g/dL Hemoglobin 14.1 LAB HCT 36.0-46.0 % Hematocrit 40.6 LAB MCV 80.0-100.0 fL MCV 85.1 LAB MCH 26.0-34.0 pG MCH 29.6 LAB MCHC 30.5-36.0 g/dL MCHC 34.7 LAB RDWCV 11.5-15.0 % RDW-CV 13.9 LAB PLTCT 150-400 k/uL Platelet Count 198 LAB MPV 9.0-12.7 fL MPV 12.6 LAB ANEUT % Neut% 52.0 LAB AANEUT 1.45-7.50 k/uL Abs Neut 4.73 LAB ALYMP % Lymph% 34.7 LAB AALYMP 1.00-4.00 k/uL Abs Lymph 3.16 LAB AMONO % Sterling% 9.3 LAB AAMONO <0.87 k/uL Abs Sterling 0.85 LAB AEOS % Eosin% 2.9 LAB AAEOS <0.46 k/uL Abs Eosin 0.26 LAB ABASO % Baso% 1.1 LAB AABASO <0.11 k/uL Abs Baso 0.10 LAB AUNRBC 0 /100 WBC NRBCs 0.0 LAB ABNRBC <0.01 k/uL Absolute nRBC <0.01 LAB DTYP DTYPE Auto Diff Performed By: #### CBCDIF, CMP, LIPNF, TSH, B12, SERFOL, WSR, SYPHGX, SEPG #### [facility] [address] [place], [place] [address] COMP METABOLIC PANEL Collected: 01/09/2018 Status: F Source: [place] 10:[facility] REPOS[facility] TYPE CODE TESTS RESULT OUT OF REFERENCE UNITS RANGE LAB TP 6.3-8.0 g/dL Protein, Total 6.8 LAB ALB 3.9-4.9 g/dL Albumin 4.2 LAB CA 8.5-10.2 mg/dL Calcium, Total 10.2 LAB TBIL 0.2-1.3 mg/dL Bilirubin, Total 0.5 LAB ALKP 32-117 U/L Alkaline Phosphatase 92 LAB AST 13-35 U/L AST 31 LAB GLU 74-99 mg/dL Glucose High 164 Result Comment: The [place] Diabetes Association (ADA) provides guidance for cutoff values for fasting glucose and random glucose. The ADA defines fasting as no caloric intake for at least 8 hours. Fas ting plasma glucose results between 100 to 125 mg/dL indicate increased risk for diabetes (prediabetes). Fasting plasma glucose results greater than or equal to 126 mg/dL meet the criteria for diagnosis of diabetes. In the absence of unequivocal hyperglycemia, results should be confirmed by repeat testing. In a patient with classic symptoms of hyperglycemia or hyperglycemic crisis, random plasma glucose results greater than or equal to 200 mg/dL meet the criteria for diagnosis of diabetes. Reference: Standards of Medical Care in Diabetes 2016, [place] [employer] Association. Diabetes Care. 2016.39(Suppl 1). LAB BUN 7-21 mg/dL BUN 17 LAB CRET 0.58-0.96 mg/dL Creatinine Low 0.47 LAB NA 136-144 mmol/L Sodium 136 LAB K 3.7-5.1 mmol/L Potassium 4.2 LAB CL 97-105 mmol/L Chloride 100 LAB CO2 22-30 mmol/L CO2 22 LAB AGAP 9-18 mmol/L Anion Gap 14 LAB ALT 7-38 U/L ALT 27 LAB GFRAA eGFR- Amer. >60 LAB GFRNAA . eGFR-All Other Races >60 Result Comment: eGFR (Estimated GFR) Units of measure: mL/min/1.73 meters squared eGFR is derived from the reexpressed MDRD Study equation using the following parameters: serum creatinine, age, gender and race. The creatinine assay has been calibrated to be traceable to IDMS. An eGFR <60 mL/min/1.73m2 for >3 months is consistent with chronic kidney disease. Refer to KDOQI guidelines for clinical interpretation. In patients with unstable renal function, e.g. those with acute kidney injury, the eGFR may not accurately reflect actual GFR. Performed By: #### CBCDIF, CMP, LIPNF, TSH, B12, SERFOL, WSR, SYPHGX, SEPG #### [facility] [address] [place] [id number] LIPID PANEL, NONFAST Collected: 01/09/2018 Status: F Source: [place] 10:39 [facility] REPOSITORY TYPE CODE TESTS RESULT OUT OF REFERENCE UNITS RANGE LAB CHOLNF <200 mg/dL Total Cholesterol NF 183 Result Comment: <200 mg/dL, Desirable 200-239 mg/dL, Borderline high >239 mg/dL, High LAB TRIGNF <150 mg/dL Triglycerides, NF High 293 Result Comment: <150 mg/dL, Normal 150-199 mg/dL, Borderline high 200-499 mg/dL, High >499 mg/dL, Very high LAB HDLNF >39 mg/dL HDL Cholesterol, NF Low 37 Result Comment: 40-59 mg/dL, Acceptable >59 mg/dL, High: Negative risk factor for coronary heart disease <40 mg/dL, Low: Positive risk factor for coronary heart disease LAB LDLNF <100 mg/dL LDL Cholesterol, NF 87 Result Comment: <100 mg/dL, Optimal 100-129 mg/dL, Near optimal/above optimal 130-159 mg/dL, Borderline high 160-189 mg/dL, High >189 mg/dL, Very high Secondary prevention optimal LDL Cholesterol levels are recommended to be < 70 mg/dL LAB NOHDLN <130 mg/dL High Non HDL Chol, 146 NF Result Comment: <130 mg/dL, Optimal 130-159 mg/dL, Near optimal/above optimal 160-189 mg/dL, Borderline high 190-219 mg/dL, High >219 mg/dL, Very high Secondary prevention optimal non HDL Cholesterol levels are recommended to be < 100 mg/dL LAB VLDLNF <30 mg/dL VLDL Cholesterol, High NF 59 LAB TCHDLN <5.10 mg/dL T Chol/HDL Ratio NF 4.95 LAB LDLHDN <2.54 mg/dL LDL/HDL Ratio, NF 2.35 Result Comment: Reference: 1. National Cholesterol Education Program ATP III Guideline At-A-Glance Quick Desk Reference: National Heart, Lung, and Blood [place]. National Institutes of Health. 2001: NIH Publication No. 01-3305. 2. An International Atherosclerosis Society position paper: global recommendations for the management of dyslipidemia: executive summary, Atherosclerosis. 2014: 232(2):410-413. Performed By: #### CBCDIF, CMP, LIPNF, TSH, B12, SERFOL, WSR, SYPHGX, SEPG #### [facility] [address] [place] [address] TSH Collected: 01/09/2018 Status: F Source: [place] 10:39 AM [facility] REPOSITORY TYPE CODE TESTS RESULT OUT OF RANGE REFERENCE UNITS LAB TSH 0.400-5.500 uU/mL TSH 2.600 Performed By: #### CBCDIF, CMP, LIPNF, TSH, B12, SERFOL, WSR, SYPHGX, SEPG #### [place] [address] VITAMIN B12 Collected: 01/09/2018 Status: F Source: [place] 10:39 AM [facility] REPOSITORY TYPE CODE TESTS RESULT OUT OF REFERENCE UNITS RANGE LAB B12 232-1245 pg/mL Vitamin B12 553 Performed By: #### CBCDIF, CMP, LIPNF, TSH, B12, SERFOL, WSR, SYPHGX, SEPG #### [place] [address] FOLATE, SERUM Collected: 01/09/2018 Status: F Source: [place] 10:39 AM [facility] REPOSITORY TYPE CODE TESTS RESULT OUT OF REFERENCE UNITS RANGE LAB SERFOL >4.7 ng/mL Folate, 18.6 Serum Performed By: #### CBCDIF, CMP, LIPNF, TSH, B12, SERFOL, WSR, SYPHGX, SEPG #### [place] [id number] [place] [address] SED RATE WESTERGREN Collected: 01/09/2018 Status: F Source: [place] 10:39 AM [facility] REPOSITORY TYPE CODE TESTS RESULT OUT OF REFERENCE UNITS RANGE LAB WSR 0-20 mm/hr Sed Rate Westergren 5 Performed By: #### CBCDIF, CMP, LIPNF, TSH, B12, SERFOL, WSR, SYPHGX, SEPG #### [facility] [employer] [address] [place] [address] SYPHILIS IGG WITH Collected: 01/09/2018 Status: F Source: [facility] 10:39 AM [facility] REPOSITORY TYPE CODE TESTS RESULT OUT OF REFERENCE UNITS RANGE LAB SYPHQL Nonreactive Syphilis IgG, Nonreactive Qual Result Comment: No serological evidence of infection with T. pallidum. LAB SYPHLG AI Syphilis IgG <0.2 Result Comment: Antibody index is interpreted as follows: Non reactive SPECIMENS <=0.8 Weak reactive SPECIMENS 0.9 to 5.9 Reactive SPECIMENS >=6.0 Performed By: #### CBCDIF, CMP, LIPNF, TSH, B12, SERFOL, WSR, SYPHGX, SEPG #### [place] [address] [place] [address] PROTEIN ELECTROPHOR. Collected: 01/09/2018 Status: F Source: [place] 10:39 AM [facility] REPOSITORY TYPE CODE TESTS RESULT OUT OF REFERENCE UNITS RANGE LAB TPSPE 6.0-8.4 g/dL Total Protein, SPE 6.7 LAB ALBE 3.37-4.23 gm/dL Albumin 3.76 LAB A1GL 0.18-0.31 gm/dL Alpha 1 Globulin 0.23 LAB A2GL 0.52-0.97 gm/dL Alpha 2 Globulin 0.56 LAB BEGL 0.84-1.36 gm/dL Beta Globulin 1.19 LAB GAGL 0.70-1.44 gm/dL Gamma Globulin 0.96 LAB SPEINT Interpretation SEE COMMENT Result Comment: No definitive M protein is identified on protein electrophoresis. LAB LOC M Protein N/A Location LAB GPERDL 0.00 gm/dL M Rock 0.00 Concentratn LAB SPESTF SPE Staff Review Reviewed by Anselmo Heredia MD ([id number]) Performed By: #### CBCDIF, CMP, LIPNF, TSH, B12, SERFOL, WSR, SYPHGX, SEPG #### [facility] [employer] [address] [place], [place] [address] ALBUMIN/CREAT RATIO Collected: 01/09/2018 Status: F Source: [place] 10:39 AM [facility] REPOSITORY TYPE CODE TESTS RESULT OUT OF REFERENCE UNITS RANGE LAB UCRR 20-300 mg/dL 36.8 Creatinine,Ur ine,Ran LAB UALBR 0.0-23.0 mg/L <12.0 Albumin Urine Random LAB UALBCR 0-30 mg/g Not Albumin/Creat calculated Ratio Performed By: #### UACR #### [facility] [address] [place], [place] [address] PROGRESS Observed: 01/09/2018 Status: COMPLETED Source: [place] 9:31 AM [facility] REPOSITORY HNO ID: [id number] Author: Rhett Dorsey Service: (none) Author Type: Physician Type: Progress Notes Filed: 01/09/2018 5:35 PM Note Text: Patient presents with: Numbness HPI: Patient presents today for office visit for follow up. Nursing Notes: Leyda Jo LPN 01/09/2018 9:22 AM Signed States that left leg tingling for a couple of months. Doesn't notice the tingling all the time but is pretty constant. Denies back pain. Not in foot but is in ankle. No noticeable swelling in the leg. Doesn't get red or hot. Is retiring in a couple of months and is anxious because hasn't found insurance yet so wants to be sure is nothing wrong with leg. Notes that is bone on bone in her left knee. Has had some high glucose readings. In the mornings has some readings in 180's. States that memory problems lately. Has missed some appt's lately. Missed 3 in 1 week. Not sure if that is related to all her increased stress. Is seeing Dr. Ortiz for neuropathy. Tingling is more in her leg and is mostly on the left. Runs along the anterior sharma. Has been that way for the last several months. No injury or back pain. No headacheor weakness. No swelling that is new. No redness or warmth. No injury. Back feels well as well. Recently has had some elevated sugars. Has not changed her diet but does not really No signs of infection: fever, chills, cough or congestion. No gi issues. No urinary issues. Has been stressed. Not physically as active. Discussed monitoring sugars and watching diet. Has a bruise on her back that has not gone away. No injury. Has had memory issues. No new headaches. No new neuro issues. 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 Is feeling very stressed. Is on prozac at 80 mg a day. Offered counseling-declines. No suicidal ideation. Component Latest Ref Rng AND Units 11/12/2017 Glucose 74 - 99 mg/dL 106 (H) BUN 7 - 21 mg/dL 23 (H) Creatinine 0.58 - 0.96 mg/dL 0.60 Sodium 136 - 144 mmol/L 136 Potassium 3.7 - 5.1 mmol/L 4.3 Chloride 97 - 105 mmol/L 100 CO2 22 - 30 mmol/L 23 Anion Gap 9 - 18 mmol/L 13 Calcium 8.5 - 10.2 mg/dL 9.9 eGFR- >60 eGFR-All Other Races . >60 Hemoglobin A1C 4.3 - 5.6 % 6.4 (H) Estimated Average Glucose mg/dL 137 WSR 0 - 20 mm/hr 5 MEDICATIONS: Current Outpatient Prescriptions: atenolol (TENORMIN) 50 mg tablet Take 1 tablet by mouth twice daily. hydroCHLOROthiazide (HYDRODIURIL, ESIDRIX) 25 mg tablet Take 1 tablet by mouth once daily. FLUoxetine (PROZAC) 20 mg capsule TAKE 4 CAPSULES BY MOUTH ONCE DAILY. spironolactone (ALDACTONE) 25 mg tablet Take 1 tablet by mouth once daily. naproxen (NAPROSYN) 500 mg tablet TAKE 1 TABLET BY MOUTH TWICE A DAY WITH MEALS NEEDED orphenadrine ER (NORFLEX) 100 mg tablet TAKE 1 TABLET BY MOUTH EVERY DAY traZODone (DESYREL) 50 mg tablet TAKE 1 TABLET BY MOUTH DAILY AT BEDTIME. metFORMIN (GLUCOPHAGE) 500 mg tablet TAKE 1 TABLET BY MOUTH TWICE DAILY WITH MEALS. losartan (COZAAR) 100 mg tablet TAKE 1 TABLET BY MOUTH ONCE DAILY. armodafinil (NUVIGIL) 250 mg tab Take 250 mg by mouth once daily. gabapentin (NEURONTIN) 100 mg capsule Take 100 mg by mouth three times daily. multivitamins(DAILY MULTIVITAMIN TAB) Take one(1) tablet daily. aspirin(ADULT LOW DOSE ASPIRIN 81 MG TAB, DELAYED RELEASE) Take one(1) tablet daily. penciclovir (DENAVIR) 1 % cream Apply 1 application to affected area twice daily as needed. RESTASIS MULTIDOSE 0.05 % drop benzonatate (TESSALON PERLE) 100 mg capsule Take 1 capsule by mouth three times daily as needed. (Patient not taking: Reported on 11/04/2017 ) ONETOUCH VERIO test strip TEST BLOOD SUGAR(S) 2 TO 3 TIMES DAILY. DX: TYPE 2 DM - CONTROLLED E11.9 INSULIN: NO colestipol (COLESTID) 1 gram tablet TAKE 1 TABLET BY MOUTH ONCE DAILY. Lancets lancets Test blood sugar(s) 2 to 3 times daily. Dx: Type 2 DM - Controlled E11.9 Insulin: No. Uses One Touch Verio Meter. lancets (ONE TOUCH DELICA) 33 gauge misc USE INSTRUCTED CALCIUM 600 + D 600 MG-125 UNIT TAB Take one(1) tablet daily. No current facility-administered medications for this visit. ALLERGIES: ALLERGIES Allergen Reactions - Metal [Other] Rash, Itching - Nickel Rash, Itching - Amlodipine Swelling - Lisinopril Cough PAST MEDICAL HISTORY Diagnosis Date - Cardiomyopathy in other diseases classified elsewhere echo 2008-normal EF - Complication of anesthesia - Diverticulosis of colon (without mention of hemorrhage) - Esophageal reflux Gastroesophageal reflux - Internal hemorrhoids without mention of complication - Mental disorder - Myalgia and myositis, unspecified Fibromyalgia (myalgia and myositis) - PMH - PAST MEDICAL HISTORY OF pre diabetic - Sleep apnea - Unspecified essential hypertension Essential hypertension PAST SURGICAL HISTORY Procedure Laterality Date - COLONOSCOP W/ OR W/O [facility] SPEC 1999 Colonoscopy-due 2009 - COLONOSCOP W/ OR W/O [facility] SPEC 01/29/10 - DENTAL SURGERY PROCEDURE 04/2010 laser top right teeth - EGD W/O OR W/BRUSH/WASH 05/2003 EGD - 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 - Stroke Mother - Alzheimer's Disease Father - Osteoporosis Sister - Thyroid Daughter - Cancer Brother kidney ca./renal cell - Coronary Artery Disease Brother OR, has a bad disc is the same as above - Cancer Maternal Grandmother liver ca. 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 Hasn't smoked since she was 48yrs. Alcohol use: No Drug use: No Sexual activity: No Reviewed current medications, allergies, past medical history, surgical history, family history and social history today. REVIEW OF SYSTEMS RESPIRATORY: Negative for cough, hemoptysis, wheezing, COPD, dyspnea or shortness of breath CARDIOVASCULAR: Negative for chest pain, leg swelling, hypertension, CHF or palpitations GI: Negative for change in bowel habit : No history of dysuria, frequency or incontinence, urine is a little dark but not drinking as much All other reviewed and negative other than HPI. HEALTH MAINTENANCE: Reviewed health maintenance issues today and recommended the following in detail. BP CONTROLLED (<130/80) due on 01/10/1966 INFLUENZA(1) due on 01/03/2018 URINE ALBUMIN:CREATININE RATIO due on 2018 VITALS: BP 142/82 Pulse 72 Resp 16 Wt 95.7 kg (211 lb) BMI 34.94 kg/m? Last 4 Encounter Wt Readings: Date: Wt: 01/09/2018 95.7 kg (211 lb) 12/02/2017 98.9 kg (218 lb) 11/04/2017 99.2 kg (218 lb 9.6 oz) 05/02/2017 100.2 kg (221 lb) PHYSICAL EXAMINATION: General appearance: Well appearing, alert, in no acute distress, well-hydrated, well nourished. Skin: bruise is simply a venous area of skin. Head: Normocephalic, no masses, lesions, tenderness or abnormalities Neck: Supple, no adenopathy; thyroid symmetric, normal size, no bruits Lungs: Lungs clear to auscultation. No wheezing, rhonchi, rales Heart: RRR without murmur, gallop, or rubs. No ectopy Abdomen: Normal abdominal exam, Abdomen soft, non-tender. Bowel sounds normal. No masses, organomegaly Extremities: No deformities, edema, skin discoloration, clubbing or cyanosis. Good capillary refill. Musculoskeletal: No joint swelling, deformity, or tenderness Peripheral pulses: Normal Feet:Shoes and socks removed, No deformities, ulcers, calluses and sensitive to 10 gm monofilament ASSESSMENT/PLAN: 1. Numbness and tingling of left leg - ICD9: 782.0, ICD10: R20.0, R20.2 (primary diagnosis) - check labs and emg. Monitor symptoms. - EMG(NEURO/NI) - VITAMIN B12 BLOOD - FOLATE SERUM - SED RATE WESTERGREN - PROTEIN ELECTROPHORESIS W/INTERP - TSH BLD 2. Need for vaccination - ICD9: V05.9, ICD10: Z23 - INFLUENZA SEASONAL HIGH DOSE AGE 65+ 3. Memory loss - ICD9: 780.93, ICD10: R41.3 I suspect may be stress related. Consider further work up if worsens. - CBC + DIFF - COMP METABOLIC PANEL - VITAMIN B12 BLOOD - FOLATE SERUM - SED RATE WESTERGREN - SYPHILIS IGG WITH CONF - TSH BLD 4. Essential hypertension, benign - ICD9: 401.1, ICD10: I10 - fair control - Recheck in two weeks. - Goal of BP <130/80 5. Hyperlipidemia, unspecified hyperlipidemia type - ICD9: 272.4, ICD10: E78.5 - to be determined upon return of lab results - Continue current medication. - LIPID PANEL, NONFASTING 6. Sleep apnea, unspecified type - ICD9: 780.57, ICD10: G47.30 - monitor, ? Contributing. 7. Type 2 diabetes mellitus without complication, without long-term current use of insulin (HCC) - ICD9: 250.00, ICD10: E11.9 - stable. - ALBUMIN/CREAT RATIO RND UR 8. Inflammatory polyarthritis (HCC) - ICD9: 714.9, ICD10: M06.4 - continue to see rheum. 9. Family history of ischemic heart disease - ICD9: V17.3, ICD10: Z82.49 - attempt to modify risk factors. 10. Asthma with chronic obstructive pulmonary disease (COPD) (HCC) - ICD9: 493.20, ICD10: J44.9 - stable. 11. Adjustment disorder with other symptom - ICD9: 309.89, ICD10: F43.29 - may be contributing. Does not want to increase meds at this time. Call if worsens. Rhett Dorsey MD RTO in two weeks and prn. Influenza Vaccine Documentation: ? Patient is identified by name and date of : Yes ? Patient is older than 6 months of age: Yes ? Patient denies a severe allergy to any vaccine component or to a previous dose of influenza vaccine: Yes FOR EGG ALLERGY CONCERNS, REFER TO PROVIDER. ? Denies allergy to gelatin, formaldehyde, thimerosol :Yes ? Patient is afebrile and not moderately or severely ill: Yes ? Does the patient have a history of Guillain ?Harford Syndrome (a severe paralytic illness): No ? Denies bone marrow transplant prior 6 months or solid organ transplant prior 3 months: Yes ? Denies a history of fainting after a prior injection or medical procedure? Yes If patient has fainted in the past, the CDC recommends sitting or lying down for 15 minutes after the vaccination. ? VIS sheet provided: Yes ? See Immunization Form in [employer] for details of immunizations administered today. If patient reports dizziness, vision changes or ringing in the ears post vaccination ? please have patient sit or lie down for 15 minutes. CNOV Observed: 01/09/2018 Status: COMPLETED Source: [place] 8:20 AM [facility] RE[facility] Office Visit ([facility] LAURYN BRUMFIELD ([id number]) 1950 F Date Time Provider Department 01/09/18 8:20 AM RHETT DORSEY [facility] During your visit today, we recorded the following information about you: Pulse Respiration Blood pressure Weight 72/minute 16/minute 142/82 95.7 kg Leyda Jo LUIS ANGEL 01/09/2018 9:22 AM Signed States that left leg tingling for a couple of months. Doesn't notice the tingling all the time but is pretty constant. Denies back pain. Not in foot but is in ankle. No noticeable swelling in the leg. Doesn't get red or hot. Is retiring in a couple of months and is anxious because hasn't found insurance yet so wants to be sure is nothing wrong with leg. Notes that is bone on bone in her left knee. Has had some high glucose readings. In the mornings has some readings in 180's. States that memory problems lately. Has missed some appt's lately. Missed 3 in 1 week. Not sure if that is related to all her increased stress. Rhett Dorsey MD 01/09/2018 5:35 PM Signed Patient presents with: Numbness HPI: Patient presents today for office visit for follow up. Nursing Notes: Leyda Jo LUIS ANGEL 01/09/2018 9:22 AM Signed States that left leg tingling for a couple of months. Doesn't notice the tingling all the time but is pretty constant. Denies back pain. Not in foot but is in ankle. No noticeable swelling in the leg. Doesn't get red or hot. Is retiring in a couple of months and is anxious because hasn't found insurance yet so wants to be sure is nothing wrong with leg. Notes that is bone on bone in her left knee. Has had some high glucose readings. In the mornings has some readings in 180's. States that memory problems lately. Has missed some appt's lately. Missed 3 in 1 week. Not sure if that is related to all her increased stress. Is seeing Dr. Ortiz for neuropathy. Tingling is more in her leg and is mostly on the left. Runs along the anterior sharma. Has been that way for the last several months. No injury or back pain. No headacheor weakness. No swelling that is new. No redness or warmth. No injury. Back feels well as well. Recently has had some elevated sugars. Has not changed her diet but does not really No signs of infection: fever, chills, cough or congestion. No gi issues. No urinary issues. Has been stressed. Not physically as active. Discussed monitoring sugars and watching diet. Has a bruise on her back that has not gone away. No injury. Has had memory issues. No new headaches. No new neuro issues. 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 Is feeling very stressed. Is on prozac at 80 mg a day. Offered counseling-declines. No suicidal ideation. Component Latest Ref Rng AND Units 11/12/2017 Glucose 74 - 99 mg/dL 106 (H) BUN 7 - 21 mg/dL 23 (H) Creatinine 0.58 - 0.96 mg/dL 0.60 Sodium 136 - 144 mmol/L 136 Potassium 3.7 - 5.1 mmol/L 4.3 Chloride 97 - 105 mmol/L 100 CO2 22 - 30 mmol/L 23 Anion Gap 9 - 18 mmol/L 13 Calcium 8.5 - 10.2 mg/dL 9.9 eGFR- >60 eGFR-All Other Races . >60 Hemoglobin A1C 4.3 - 5.6 % 6.4 (H) Estimated Average Glucose mg/dL 137 WSR 0 - 20 mm/hr 5 MEDICATIONS: Current Outpatient Prescriptions: atenolol (TENORMIN) 50 mg tablet Take 1 tablet by mouth twice daily. hydroCHLOROthiazide (HYDRODIURIL, ESIDRIX) 25 mg tablet Take 1 tablet by mouth once daily. FLUoxetine (PROZAC) 20 mg capsule TAKE 4 CAPSULES BY MOUTH ONCE DAILY. spironolactone (ALDACTONE) 25 mg tablet Take 1 tablet by mouth once daily. naproxen (NAPROSYN) 500 mg tablet TAKE 1 TABLET BY MOUTH TWICE A DAY WITH MEALS NEEDED orphenadrine ER (NORFLEX) 100 mg tablet TAKE 1 TABLET BY MOUTH EVERY DAY traZODone (DESYREL) 50 mg tablet TAKE 1 TABLET BY MOUTH DAILY AT BEDTIME. metFORMIN (GLUCOPHAGE) 500 mg tablet TAKE 1 TABLET BY MOUTH TWICE DAILY WITH MEALS. losartan (COZAAR) 100 mg tablet TAKE 1 TABLET BY MOUTH ONCE DAILY. armodafinil (NUVIGIL) 250 mg tab Take 250 mg by mouth once daily. gabapentin (NEURONTIN) 100 mg capsule Take 100 mg by mouth three times daily. multivitamins(DAILY MULTIVITAMIN TAB) Take one(1) tablet daily. aspirin(ADULT LOW DOSE ASPIRIN 81 MG TAB, DELAYED RELEASE) Take one(1) tablet daily. penciclovir (DENAVIR) 1 % cream Apply 1 application to affected area twice daily as needed. RESTASIS MULTIDOSE 0.05 % drop benzonatate (TESSALON PERLE) 100 mg capsule Take 1 capsule by mouth three times daily as needed. (Patient not taking: Reported on 11/04/2017 ) [employer] test strip TEST BLOOD SUGAR(S) 2 TO 3 TIMES DAILY. DX: TYPE 2 DM - CONTROLLED E11.9 INSULIN: NO colestipol (COLESTID) 1 gram tablet TAKE 1 TABLET BY MOUTH ONCE DAILY. Lancets lancets Test blood sugar(s) 2 to 3 times daily. Dx: Type 2 DM - Controlled E11.9 Insulin: No. Uses One Touch Verio Meter. lancets (ONE TOUCH DELICA) 33 gauge misc USE INSTRUCTED CALCIUM 600 + D 600 MG-125 UNIT TAB Take one(1) tablet daily. No current facility-administered medications for this visit. ALLERGIES: ALLERGIES Allergen Reactions - Metal [Other] Rash, Itching - Nickel Rash, Itching - Amlodipine Swelling - Lisinopril Cough PAST MEDICAL HISTORY Diagnosis Date - Cardiomyopathy in other diseases classified elsewhere echo 2008-normal EF - Complication of anesthesia - Diverticulosis of colon (without mention of hemorrhage) - Esophageal reflux Gastroesophageal reflux - Internal hemorrhoids without mention of complication - Mental disorder - Myalgia and myositis, unspecified Fibromyalgia (myalgia and myositis) - PMH - PAST MEDICAL HISTORY OF pre diabetic - Sleep apnea - Unspecified essential hypertension Essential hypertension PAST SURGICAL HISTORY Procedure Laterality Date - COLONOSCOP W/ OR W/O [facility] SPEC 1999 Colonoscopy-due 2009 - COLONOSCOP W/ OR W/O [facility] SPEC 01/29/10 - DENTAL SURGERY PROCEDURE 04/2010 laser top right teeth - EGD W/O OR W/BRUSH/WASH 05/2003 EGD - 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 - Stroke Mother - Alzheimer's Disease Father - Osteoporosis Sister - Thyroid Daughter - Cancer Brother kidney ca./renal cell - Coronary Artery Disease Brother OR, has a bad disc is the same as above - Cancer Maternal Grandmother liver ca. 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 Hasn't smoked since she was 48yrs. Alcohol use: No Drug use: No Sexual activity: No Reviewed current medications, allergies, past medical history, surgical history, family history and social history today. REVIEW OF SYSTEMS RESPIRATORY: Negative for cough, hemoptysis, wheezing, COPD, dyspnea or shortness of breath CARDIOVASCULAR: Negative for chest pain, leg swelling, hypertension, CHF or palpitations GI: Negative for change in bowel habit : No history of dysuria, frequency or incontinence, urine is a little dark but not drinking as much All other reviewed and negative other than HPI. HEALTH MAINTENANCE: Reviewed health maintenance issues today and recommended the following in detail. BP CONTROLLED (<130/80) due on 01/10/1966 INFLUENZA(1) due on 01/03/2018 URINE ALBUMIN:CREATININE RATIO due on 2018 VITALS: BP 142/82 Pulse 72 Resp 16 Wt 95.7 kg (211 lb) BMI 34.94 kg/m? Last 4 Encounter Wt Readings: Date: Wt: 01/09/2018 95.7 kg (211 lb) 12/02/2017 98.9 kg (218 lb) 11/04/2017 99.2 kg (218 lb 9.6 oz) 05/02/2017 100.2 kg (221 lb) PHYSICAL EXAMINATION: General appearance: Well appearing, alert, in no acute distress, well-hydrated, well nourished. Skin: bruise is simply a venous area of skin. Head: Normocephalic, no masses, lesions, tenderness or abnormalities Neck: Supple, no adenopathy; thyroid symmetric, normal size, no bruits Lungs: Lungs clear to auscultation. No wheezing, rhonchi, rales Heart: RRR without murmur, gallop, or rubs. No ectopy Abdomen: Normal abdominal exam, Abdomen soft, non-tender. Bowel sounds normal. No masses, organomegaly Extremities: No deformities, edema, skin discoloration, clubbing or cyanosis. Good capillary refill. Musculoskeletal: No joint swelling, deformity, or tenderness Peripheral pulses: Normal Feet:Shoes and socks removed, No deformities, ulcers, calluses and sensitive to 10 gm monofilament ASSESSMENT/PLAN: 1. Numbness and tingling of left leg - ICD9: 782.0, ICD10: R20.0, R20.2 (primary diagnosis) - check labs and emg. Monitor symptoms. - EMG(NEURO/NI) - VITAMIN B12 BLOOD - FOLATE SERUM - SED RATE WESTERGREN - PROTEIN ELECTROPHORESIS W/INTERP - TSH BLD 2. Need for vaccination - ICD9: V05.9, ICD10: Z23 - INFLUENZA SEASONAL HIGH DOSE AGE 65+ 3. Memory loss - ICD9: 780.93, ICD10: R41.3 I suspect may be stress related. Consider further work up if worsens. - CBC + DIFF - COMP METABOLIC PANEL - VITAMIN B12 BLOOD - FOLATE SERUM - SED RATE WESTERGREN - SYPHILIS IGG WITH CONF - TSH BLD 4. Essential hypertension, benign - ICD9: 401.1, ICD10: I10 - fair control - Recheck in two weeks. - Goal of BP <130/80 5. Hyperlipidemia, unspecified hyperlipidemia type - ICD9: 272.4, ICD10: E78.5 - to be determined upon return of lab results - Continue current medication. - LIPID PANEL, NONFASTING 6. Sleep apnea, unspecified type - ICD9: 780.57, ICD10: G47.30 - monitor, ? Contributing. 7. Type 2 diabetes mellitus without complication, without long-term current use of insulin (HCC) - ICD9: 250.00, ICD10: E11.9 - stable. - ALBUMIN/CREAT RATIO RND UR 8. Inflammatory polyarthritis (HCC) - ICD9: 714.9, ICD10: M06.4 - continue to see rheum. 9. Family history of ischemic heart disease - ICD9: V17.3, ICD10: Z82.49 - attempt to modify risk factors. 10. Asthma with chronic obstructive pulmonary disease (COPD) (HCC) - ICD9: 493.20, ICD10: J44.9 - stable. 11. Adjustment disorder with other symptom - ICD9: 309.89, ICD10: F43.29 - may be contributing. Does not want to increase meds at this time. Call if worsens. Rhett Dorsey MD RTO in two weeks and prn. Influenza Vaccine Documentation: ? Patient is identified by name and date of : Yes ? Patient is older than 6 months of age: Yes ? Patient denies a severe allergy to any vaccine component or to a previous dose of influenza vaccine: Yes FOR EGG ALLERGY CONCERNS, REFER TO PROVIDER. ? Denies allergy to gelatin, formaldehyde, thimerosol :Yes ? Patient is afebrile and not moderately or severely ill: Yes ? Does the patient have a history of Guillain ?Harford Syndrome (a severe paralytic illness): No ? Denies bone marrow transplant prior 6 months or solid organ transplant prior 3 months: Yes ? Denies a history of fainting after a prior injection or medical procedure? Yes If patient has fainted in the past, the CDC recommends sitting or lying down for 15 minutes after the vaccination. ? VIS sheet provided: Yes ? See Immunization Form in [facility] for details of immunizations administered today. If patient reports dizziness, vision changes or ringing in the ears post vaccination ? please have patient sit or lie down for 15 minutes. Rhett Dorsey MD 01/09/2018 9:40 AM Signed Call a list of sugars in week. Referring Provider: SELF [[id number]] Allergies As of Date: 01/09/2018 Noted Allergy Reaction metal [Other] 01/01/2007 2 - Rash 9 - Itching NICKEL 01/01/2007 2 - Rash 9 - Itching AMLODIPINE 04/07/2012 7 - Swelling LISINOPRIL 11/25/2011 3 - Cough Date Reviewed: 01/09/2018 Reviewed by: Leyda Jo LPN - Fully Assessed Reason for Visit: Numbness [75] Imm/Inj [58] Cmt: Flu Vaccine Reason For Visit History Recorded Primary Visit Diagnosis:Numbness and tingling of left leg [R20.0, R20.2] Other Visit Diagnoses:Need for vaccination [Z23] Memory loss [R41.3] Essential hypertension, benign [I10] Hyperlipidemia, unspecified hyperlipidemia type [E78.5] Sleep apnea, unspecified type [G47.30] Type 2 diabetes mellitus without complication, without long-term current use of insulin (HCC) [E11.9] Inflammatory polyarthritis (HCC) [M06.4] Family history of ischemic heart disease [Z82.49] Asthma with chronic obstructive pulmonary disease (COPD) (HCC) [J44.9] Adjustment disorder with other symptom [F43.29] Order(s):INFLUENZA SEASONAL HIGH DOSE AGE 65+ [[id number]] Order #: [id number] EMG(NEURO/NI) [[id number]] Order #: [id number]: 1 FUTURE CBC + DIFF [SQCBCDIF] Order #: [id number] FUTURE COMP METABOLIC PANEL [SQCMP] Order #: [id number] FUTURE ALBUMIN/CREAT RATIO RND UR [SQUACR] Order #: [id number] FUTURE LIPID PANEL, NONFASTING [SQLIPNF] Order #: [id number] FUTURE VITAMIN B12 BLOOD [SQB12] Order #: [id number] FUTURE FOLATE SERUM [SQSERFOL] Order #: [id number] FUTURE SED RATE WESTERGREN [SQWSR] Order #: [id number] FUTURE PROTEIN ELECTROPHORESIS W/INTERP [SQSEPG] Order #: [id number] FUTURE SYPHILIS IGG WITH CONF [SQSYPHGX] Order #: [id number] FUTURE TSH BLD [SQTSH] Order #: [id number] FUTURE Prescriptions as of 01/09/2018 Sig: ATENOLOL 50 MG TABLET Take 1 tablet by mouth twice * HYDROCHLOROTHIAZIDE 25 MG TAB* Take 1 tablet by mouth once d* FLUOXETINE 20 MG CAPSULE TAKE 4 CAPSULES BY MOUTH ONCE* SPIRONOLACTONE 25 MG TABLET Take 1 tablet by mouth once d* NAPROXEN 500 MG TABLET TAKE 1 TABLET BY MOUTH TWICE * ORPHENADRINE CITRATE ER 100 M* TAKE 1 TABLET BY MOUTH EVERY * TRAZODONE 50 MG TABLET TAKE 1 TABLET BY MOUTH DAILY * METFORMIN 500 MG TABLET TAKE 1 TABLET BY MOUTH TWICE * LOSARTAN 100 MG TABLET TAKE 1 TABLET BY MOUTH ONCE D* ARMODAFINIL 250 MG TABLET Take 250 mg by mouth once [place]* GABAPENTIN 100 MG CAPSULE Take 100 mg by mouth three ti* DAILY MULTIVITAMIN TABLET Take one(1) tablet daily. ADULT LOW DOSE ASPIRIN 81 MG * Take one(1) tablet daily. PENCICLOVIR 1 % TOPICAL CREAM Apply 1 application to affect* RESTASIS MULTIDOSE 0.05 % EYE* BENZONATATE 100 MG CAPSULE Take 1 capsule by mouth three* Patient not taking: Reported on 11/04/2017 ONETOUCH VERIO STRIPS TEST BLOOD SUGAR(S) 2 TO 3 TI* COLESTIPOL 1 GRAM TABLET TAKE 1 TABLET BY MOUTH ONCE D* LANCETS Test blood sugar(s) 2 to 3 ti* LANCETS 33 GAUGE USE INSTRUCTED CALCIUM 600 + D(3) 600 MG-125* Take one(1) tablet daily. Problem List As Of Date 01/09/2018 Noted Resolved BENIGN HYPERTENSION [I10] INVALID FOR* Myalgia and myositis, unspecified [SMQ0100] INVALID FOR*10/07/2016 Insomnia [G47.00] INVALID FOR* ESOPHAGEAL REFLUX [K21.9] INVALID FOR* Actinic keratosis [L57.0] INVALID FOR*07/04/2014 Inflamed seborrheic keratosis [L82.0] INVALID FOR*07/04/2014 Other chronic 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 radiation*INVALID FOR*07/04/2014 SOLAR LENGINES///DYSCHROMIA OTHER [L81.9] INVALID FOR*07/04/2014 Hyperlipidemia [E78.5] INVALID FOR* Sleep apnea [G47.30] INVALID FOR* More... Glucose intolerance (pre-diabetes) [R73.03] INVALID FOR*09/09/2013 Arthritis of knee, degenerative [M17.10] INVALID FOR*10/07/2016 Type 2 diabetes mellitus without complication (*INVALID FOR* Spinal stenosis of lumbar region [M48.061] INVALID FOR* Primary osteoarthritis of left knee [M17.12] INVALID FOR* Pain in left knee [M25.562] INVALID FOR*10/07/2016 Marital conflict [Z63.0] INVALID FOR*10/07/2016 Adjustment disorder with mixed anxiety and depr*INVALID FOR* Obesity (BMI 30.0-34.9) [E66.9] INVALID FOR* Inflammatory polyarthritis (HCC) [M06.4] INVALID FOR* More... Family history of ischemic heart disease [Z82.4*INVALID FOR* More... Obesity (BMI 35.0-39.9 without comorbidity) [E6*INVALID FOR* Aortic valve sclerosis [I35.8] INVALID FOR* Asthma with chronic obstructive pulmonary disea*INVALID FOR* More... Other instructions from your clinician: Call a list of sugars in week. Visit Notes: >> Leyda Jo LPN FriJan 09, 2018 9:12 AM Status: Signed States that left leg tingling for a couple of months. Doesn't notice the tingling all the time but is pretty constant. Denies back pain. Not in foot but is in ankle. No noticeable swelling in the leg. Doesn't get red or hot. Is retiring in a couple of months and is anxious because hasn't found insurance yet so wants to be sure is nothing wrong with leg. Notes that is bone on bone in her left knee. Has had some high glucose readings. In the mornings has some readings in 180's. States that memory problems lately. Has missed some appt's lately. Missed 3 in 1 week. Not sure if that is related to all her increased stress. Disposition: Return in about 2 weeks (around 01/23/2018). Follow-up and Disposition History Recorded Encounter Status:Closed by RHETT DORSEY MD on 01/09/18 PROGRESS Observed: 01/01/2018 Status: COMPLETED Source: [place] 4:07 PM [facility] REPOSITORY HNO ID: [id number] Author: Mandeep Mensah Service: (none) Author Type: Physician Type: Progress Notes Filed: 01/01/2018 4:21 PM Note Text: Mandeep Mensah DPM Department of Podiatry [address] [facility] [address] Dept: [phone] Dept Diabetic Nail Care SUBJECTIVE: Follow up office visit: This 67 year old female presents to clinic c/o painful toenails. Patient states that the nails are especially painful with shoe gear and pressure. Patient admits to being diabetic and states that their blood sugar was 150 mg/dL this AM. Patient denies claudication type symptoms when walking. No other pedal complaints at this time. No change in medications or medical history since last visit. Patient late for this appointment today because she forgot. She has forgotten 3 appointments this week. She is going to discuss with Dr. Dorsey OBJECTIVE: Patient presents to clinic ambulating in tennis shoes. Vasc: DP and PT pulses are palpable bilateral. CFT is less than 5 seconds bilateral. Skin temperature is warm to warm proximal to distal bilateral. There is no edema or varicosities noted. Hair growth present. Neuro: Protective sensation is decreased to the foot and toes when tested with the 5.07 SWM bilateral. Vibratory sensation is decreased at the hallux bilateral. significant neurological defecits. Derm: Inspection and palpation performed. Nails 1-5 b/l are painful, discolored-yellow, thick, crumbly, dystrophic and with subungal debris. Skin is of normal turgor and texture. Hyperkeratosis not present. NO ulcerations, scars, verruca or other lesions noted. Ortho: Ankle joint DF is full with the knee extended and full with knee flexed. No pain or crepitus noted. STJ, MTJ ROM are full and free of pain or crepitus. Muscle strength is 5/5 for dorsiflexors, plantarflexors, inverters, everters. Digital deformities include no. ASSESSMENT: (E11.42) Diabetic polyneuropathy associated with type 2 diabetes mellitus (HCC) (primary encounter diagnosis) Plan: 1. Patient was seen and evaluated. 2. Nails 1-5 bilateral were debrided in length and thickness. 3. Patient was instructed on the continued importance of diabetic foot care along with proper diet and keeping their blood sugar under control to prevent complications. 4. RTC 3-4 months for DFC (B35.1) Onychomycosis Plan: same as above (M79.675) Pain in toe of left foot Plan: same as above (M79.674) Pain in toe of right foot Plan: same as above Patient having memory issues. Discussed talking with her doctor. Informed patient to make an appointment with Dr. Dorsey to discuss. Offered to facilitate but she declined. DFE due November 2018 Diabetic shoes due but patient declines Mandeep Mensah DPM CNOV Observed: 01/01/2018 Status: COMPLETED Source: [place] 3:10 PM [facility] REPOSITORY Office Visit (PODIWS) LAURYN BRUMFIELD ([id number]) 1950 F Date Time Provider Department 01/01/18 3:10 PM MANDEEP MENSAH PODDOLORES During your visit today, we recorded the following information about you: Mandeep Mensah DPM 01/01/2018 4:21 PM Signed Mandeep Mensah DPM Department of Podiatry [facility] [address] [facility] [address] Dept: [phone] Dept Diabetic Nail Care SUBJECTIVE: Follow up office visit: This 67 year old female presents to clinic c/o painful toenails. Patient states that the nails are especially painful with shoe gear and pressure. Patient admits to being diabetic and states that their blood sugar was 150 mg/dL this AM. Patient denies claudication type symptoms when walking. No other pedal complaints at this time. No change in medications or medical history since last visit. Patient late for this appointment today because she forgot. She has forgotten 3 appointments this week. She is going to discuss with Dr. Dorsey OBJECTIVE: Patient presents to clinic ambulating in tennis shoes. Vasc: DP and PT pulses are palpable bilateral. CFT is less than 5 seconds bilateral. Skin temperature is warm to warm proximal to distal bilateral. There is no edema or varicosities noted. Hair growth present. Neuro: Protective sensation is decreased to the foot and toes when tested with the 5.07 SWM bilateral. Vibratory sensation is decreased at the hallux bilateral. significant neurological defecits. Derm: Inspection and palpation performed. Nails 1-5 b/l are painful, discolored-yellow, thick, crumbly, dystrophic and with subungal debris. Skin is of normal turgor and texture. Hyperkeratosis not present. NO ulcerations, scars, verruca or other lesions noted. Ortho: Ankle joint DF is full with the knee extended and full with knee flexed. No pain or crepitus noted. STJ, MTJ ROM are full and free of pain or crepitus. Muscle strength is 5/5 for dorsiflexors, plantarflexors, inverters, everters. Digital deformities include no. ASSESSMENT: (E11.42) Diabetic polyneuropathy associated with type 2 diabetes mellitus (HCC) (primary encounter diagnosis) Plan: 1. Patient was seen and evaluated. 2. Nails 1-5 bilateral were debrided in length and thickness. 3. Patient was instructed on the continued importance of diabetic foot care along with proper diet and keeping their blood sugar under control to prevent complications. 4. RTC 3-4 months for DFC (B35.1) Onychomycosis Plan: same as above (M79.475) Pain in toe of left foot Plan: same as above (M79.674) Pain in toe of right foot Plan: same as above Patient having memory issues. Discussed talking with her doctor. Informed patient to make an appointment with Dr. Dorsey to discuss. Offered to facilitate but she declined. DFE due November 2018 Diabetic shoes due but patient declines Mandeep Mensah DPM Referring Provider: SELF [[id number]] Allergies As of Date: 01/01/2018 Noted Allergy Reaction metal [Other] 01/01/2007 2 - Rash 9 - Itching NICKEL 01/01/2007 2 - Rash 9 - Itching AMLODIPINE 04/07/2012 7 - Swelling LISINOPRIL 11/25/2011 3 - Cough Date Reviewed: 01/01/2018 Reviewed by: Ginette Patel RN - Fully Assessed Reason for Visit: Diabetic Foot Care [916] Primary Visit Diagnosis:Diabetic polyneuropathy associated with type 2 diabetes mellitus (HCC) [E11.42] Other Visit Diagnoses:Onychomycosis [B35.1] Pain in toe of left foot [M79.675] Pain in toe of right foot [M79.674] Prescriptions as of 01/01/2018 Sig: PENCICLOVIR 1 % TOPICAL CREAM Apply 1 application to affect* ATENOLOL 50 MG TABLET TAKE 1 TABLET BY MOUTH TWICE * TRAZODONE 50 MG TABLET TAKE 1 TABLET BY MOUTH DAILY * HYDROCHLOROTHIAZIDE 25 MG TAB* TAKE 1 TABLET BY MOUTH ONCE D* RESTASIS MULTIDOSE 0.05 % EYE* METFORMIN 500 MG TABLET TAKE 1 TABLET BY MOUTH TWICE * ORPHENADRINE CITRATE ER 100 M* TAKE 1 TABLET BY MOUTH EVERY * FLUOXETINE 20 MG CAPSULE TAKE 4 CAPSULES BY MOUTH ONCE* NAPROXEN 500 MG TABLET TAKE 1 TABLET BY MOUTH TWICE * LOSARTAN 100 MG TABLET TAKE 1 TABLET BY MOUTH ONCE D* ONETOUCH VERIO STRIPS TEST BLOOD SUGAR(S) 2 TO 3 TI* SPIRONOLACTONE 25 MG TABLET TAKE 1 TABLET BY MOUTH EVERY * ARMODAFINIL 250 MG TABLET Take 250 mg by mouth once milton* LANCETS Test blood sugar(s) 2 to 3 ti* LANCETS 33 GAUGE USE INSTRUCTED GABAPENTIN 100 MG CAPSULE Take 100 mg by mouth three ti* DAILY MULTIVITAMIN TABLET Take one(1) tablet daily. ADULT LOW DOSE ASPIRIN 81 MG * Take one(1) tablet daily. BENZONATATE 100 MG CAPSULE Take 1 capsule by mouth three* Patient not taking: Reported on 11/04/2017 COLESTIPOL 1 GRAM TABLET TAKE 1 TABLET BY MOUTH ONCE D* CALCIUM 600 + D(3) 600 MG-125* Take one(1) tablet daily. Problem List As Of Date 01/01/2018 Noted Resolved BENIGN HYPERTENSION [I10] INVALID FOR* Myalgia and myositis, unspecified [[id number]] INVALID FOR*10/07/2016 Insomnia [G47.00] INVALID FOR* ESOPHAGEAL REFLUX [K21.9] INVALID FOR* Actinic keratosis [L57.0] INVALID FOR*07/04/2014 Inflamed seborrheic keratosis [L82.0] INVALID FOR*07/04/2014 Other chronic 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 radiation*INVALID FOR*07/04/2014 SOLAR LENGINES///DYSCHROMIA OTHER [L81.9] INVALID FOR*07/04/2014 Hyperlipidemia [E78.5] INVALID FOR* Sleep apnea [G47.30] INVALID FOR* More... Glucose intolerance (pre-diabetes) [R73.03] INVALID FOR*09/09/2013 Arthritis of knee, degenerative [M17.10] INVALID FOR*10/07/2016 Type 2 diabetes mellitus without complication (*INVALID FOR* Spinal stenosis of lumbar region [M48.061] INVALID FOR* Primary osteoarthritis of left knee [M17.12] INVALID FOR* Pain in left knee [M25.562] INVALID FOR*10/07/2016 Marital conflict [Z63.0] INVALID FOR*10/07/2016 Adjustment disorder with mixed anxiety and depr*INVALID FOR* Obesity (BMI 30.0-34.9) [E66.9] INVALID FOR* Inflammatory polyarthritis (HCC) [M06.4] INVALID FOR* More... Family history of ischemic heart disease [Z82.4*INVALID FOR* More... Obesity (BMI 35.0-39.9 without comorbidity) [E6*INVALID FOR* Aortic valve sclerosis [I35.8] INVALID FOR* Asthma with chronic obstructive pulmonary disea*INVALID FOR* More... Disposition: Return in about 3 months (around 04/03/2018) for nail care. Follow-up and Disposition History Recorded Encounter Status:Closed by MANDEEP MENSAH DPM on 01/01/18 CARDIOLOGY VISIT Observed: 12/19/2017 Status: F Source: [facility] 6:42 PM [facility] [address] [place] [address] OFFICE VISIT Date of Service: 12/19/17 MR#: [id number] Acct: [id number] Name: LAURYN BRUMFIELD Rep #: [id number] : 1950 Provider: RISHABH Wu Age/Sex: 67/F Location: [facility] Status: Signed HPI HPI Details: LAURYN BRUMFIELD, is a 67 F who presents to the office today for a cardiovascular outpatient follow-up. She has a history of hypertension and diabetes. She also has a significant family history of coronary artery disease. Pt. denies chest, arm, jaw, or neck discomfort. Her exercise tolerance is stable. Pt. denies symptoms of lightheadedness, dizziness, near syncope, or syncopal episodes. Pt. denies worsening edema or claudication issues. Pt. denies orthopnea, PND, fever, chills, blood in urine, blood in stool, myalgia, or unexplainable fatigue. She denies palpitations. She states left leg numbness. She states continual SOB on exertion. This is unchanged since last office visit. She notices this mainly with long distances and when walking up steps. 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 Accompanied by: None Is patient in pain?: No Allergies amlodipine Adverse Reaction (Severe, Verified 12/19/17 16:02) Unknown nickel Adverse Reaction (Severe, Verified 12/19/17 16:02) Unknown lisinopril Adverse Reaction (Mild, Verified 12/19/17 16:02) Other - cough Medications armodafinil 250 mg tablet 250 mg PO QDAY tab 09/09/17 [History Confirmed 12/08/17] aspirin 81 mg tablet,delayed release 81 mg PO QDAY 09/09/17 [History Confirmed 12/08/17] calcium carbonate 600 mg (1,500 mg)-vitamin D3 200 unit tablet 1 tab PO QDAY 09/09/17 [History Confirmed 12/08/17] colestipol 1 gram tablet 1 g PO QDAY tab 09/09/17 [History Confirmed 12/08/17] fluoxetine 20 mg capsule See Label Instructions PO QDAY 09/09/17 [History Confirmed 12/08/17] gabapentin 100 mg capsule 100 mg PO TID cap 09/09/17 [History Confirmed 12/08/17] hydrochlorothiazide 25 mg tablet 25 mg PO QDAY 09/09/17 [History Confirmed 12/08/17] losartan 100 mg tablet 100 mg PO QDAY 09/09/17 [History Confirmed 12/08/17] orphenadrine citrate ER 100 mg tablet,extended release 100 mg PO QDAY tab 09/09/17 [History Confirmed 12/08/17] oxazepam 15 mg capsule 15 mg PO QHS PRN 09/09/17 [History Confirmed 12/08/17] trazodone 50 mg tablet 50 mg PO QHS tab 09/09/17 [History Confirmed 12/08/17] atenolol 50 mg tablet 50 mg PO BID tab 09/12/17 [History Confirmed 12/08/17] cyclosporine 0.05 % eye drops in a dropperette 1 drp OPHTHALMIC Q12H 10/30/17 [History Confirmed 12/08/17] metformin 500 mg tablet 500 mg PO BID 10/30/17 [History Confirmed 12/08/17] multivitamin tablet 1 tab PO QAM 10/30/17 [History Confirmed 12/08/17] naproxen 500 mg tablet 500 mg PO BID PRN 10/30/17 [History Confirmed 12/08/17] spironolactone 50 mg tablet 25 mg PO QDAY tab 10/30/17 [History Confirmed 12/08/17] Ejection fraction %: 55 to 59 PFSH Medical History Dyspnea on exertion (Chronic) Encounter for long-term current use of high risk medication (Chronic) Hypertension (Chronic) Hyperlipidemia (Chronic) Abnormal findings on diagnostic imaging of heart and coronary circulation (Chronic) Pericardial effusion (noninflammatory) (Chronic) Nonrheumatic mitral valve insufficiency (Chronic) Non-rheumatic tricuspid valve insufficiency (Chronic) Acoustic neuroma (Chronic) Benign hypertension (Chronic) Dyspnea on exertion (Acute) Hemoptysis (Acute) Skin cancer (Acute) Adjustment disorder with mixed anxiety and depressed mood (Chronic) Aortic valve sclerosis (Chronic) Bacterial sinusitis (Chronic) Esophageal reflux (Chronic) Inflammatory polyarthritis (Chronic) Insomnia (Chronic) Obesity (Chronic) Primary osteoarthritis of left knee (Chronic) Sleep apnea (Chronic) Spinal stenosis of lumbar region (Chronic) Type 2 diabetes mellitus (Chronic) Surgical History H/O brain surgery (Resolved) H/O foot surgery (Resolved) Family History Brother CAD (coronary artery disease) Cancer Mother CVA (cerebral vascular accident) Father Alzheimers disease Grandmother Cancer Diabetes Social History household members: none housing: house current occupational status: employed current occupation: [employer] pets and animals: Yes pets and animals: dog(s) Smoking Status: Former smoker quit date: 05/05/98 pack-years: 35 how long ago did patient quit smokin second hand exposure: Yes alcohol intake: never substance use type: does not use caffeine: Yes Type: coffee Number of servings: 2 what type of physical activity do you participate in: none ROS Const Const: Negative for fatigue, weakness, body ache, fever(s) or chills ENT ENT: Negative for dizziness Cardio Chest Pain: No Palpitations: No Edema: None Muscle aches with walking: None Resp Respiratory: Positive for SOB with activity (When going up steps and long distances); negative for SOB at rest, SOB orthopnea\SOB lying down or paroxysmal nocturnal dyspnea GI GI: Negative nausea, black,tarry stools, bright, red blood in stools or vomiting blood/hematemesis : Negative for hematuria or frequent nighttime urination/ nocturia Musc Musc: Negative for muscle aches/ myalgia Skin Skin: Negative non-healing lesions or rash Neuro Neuro: Negative for weakness or dizziness Endo Endo: Negative for fatigue Allergy Allergy/Immunology: Negative for rash Cardiology Exam Const Appearance: cooperative, healthy appearing, comfortable and no acute distress Nutritional Appearance: obese Orientation: alert, awake and oriented x3 Head Head: normal to inspection Ears: hearing grossly normal bilaterally Nose: external nose normal Face and Sinus: face symmetric Mouth: oral mucosae normal Eyes General: appearance normal, both eyes and all related structures Eyelids: eyelids normal Neck Neck: no JVD and normal visual inspection Carotids: normal carotid upstroke Chest Chest inspection: normal inspection of the chest and normal respiratory effort; negative cough Auscultation: Bilateral: Clear to Auscultation Cardio Rate: regular rate Rhythm: regular rhythm Heart sounds: S1 normal and S2 normal; negative rub, gallop or murmur GI GI: normal to inspection and obese Neuro General: alert, awake, oriented x3 and CN's II-XI intact bilaterally Skin Skin: no rashes or lesions noted Extremities Pulses: Normal: Right Posterior Tibial Pulse, Left Posterior Tibial Pulse, Right Radial Pulse, Left Radial Pulse Lower Extremity Edema: None: Bilateral Psych Psychological: normal affect Supplemental Info Stress test from March 2017 was a normal pharmacological myocardial perfusion stress test and showed preserved ejection fraction of 70%. Echocardiogram from March 2017 showed an estimated ejection fraction 55%, mild concentric LVH, mild mitral valve insufficiency, and mild tricuspid valve insufficiency. Assessment AND Plan 1. Essential hypertension I10 Plan - ANGEL James Her blood pressure is elevated today in office. She is on multiple medications for this. She was asked to check her blood pressure at home for the next 2-3 weeks and contact our office with an update on overall blood pressure readings. We will make further recommendation based on pressure readings. Patient Instructions - ANGEL James Please take blood pressure at home for 2-3 weeks and contact our office with an update. We will decide what to do next after we get the readings. 2. Dyspnea on exertion R06.09 Plan - ANGEL James Her stress test March 2017 was negative for stress-induced myocardial ischemia and her echocardiogram in March 2017 showed ejection fraction 55% mild concentric LVH, mild mitral valve insufficiency, and mild tricuspid valve insufficiency. Her dyspnea on exertion is unchanged since last office visit. She will continue with pulmonology workup. Plan Detail Additional Comments - ANGEL James She will keep April [address] Aguilera for further assessment. Discussed the above patient with Dr. Aguilera, he agrees with the plan of care. Thank you for allowing us to participate in the patients plan of care, if you have any questions please do not hesitate to call. This note was generated using a voice recognition system and there may be incorrect words, spelling or punctuation that were not noted when reviewing the office note prior to saving. Coding Level of Care Code Off vis,est,level 3 Diagnoses Essential hypertension I10 Hypertension type: essential hypertension Dyspnea on exertion R06.09 Coding Level of Care Code Off vis,est,level 3 Diagnoses Essential hypertension I10 Hypertension type: essential hypertension Dyspnea on exertion R06.09 12/19/17 1643 <Electronically signed by Kevin Wu RAIL TRACTOR OPERATOR-C> Date Kevin Wu RAIL TRACTOR OPERATOR-C 12/19/17 1842<Electronically signed by Hosea Aguilera MD> Cosigner Signature: Date (if applicable) Hosea Aguilera MD CC: Rhett Dorsey MD CNCO Observed: 12/02/2017 Status: COMPLETED Source: [place] 9:50 AM [facility] REPOSITORY HNO ID: [id number] Author: Mammography Coordinator Service: (none) Author Type: Physician Type: Letter Filed: 12/03/2017 11:31 PM Note Text: December 02, 2017 PID: [id number] Lauryn Brumfield [address] [place] [address] Dear Ms. Brufmield, We are pleased to inform you that the results of your recent breast imaging exam on 12/02/2017 are normal. Your mammogram demonstrates that you have dense breast tissue, which could hide abnormalities. Dense breast tissue, in and of itself, is a relatively common condition. Therefore, this information is not provided to cause undue concern; rather, it is to raise your awareness and promote discussion with your health care provider regarding the presence of dense breast tissue in addition to other risk factors. Early detection of cancer is very important. We also understand recommendations regarding breast cancer screening are controversial. Please discuss with your primary care provider which strategy is best for you and whether a mammogram is right for you. Your imaging studies and report will be kept on file at [facility] as part of your permanent medical record and are available for your continuing care. Thank you for allowing us to help in meeting your health care needs. Sincerely, Dr. Cervantes Interpreting Radiologist [facility] (Normal over 40) CNOV Observed: 12/02/2017 Status: COMPLETED Source: [place] 9:00 AM [facility] REPOSITORY Office Visit (WOOB) LAURYN BRUMFIELD ([id number]) 1950 F Date Time Provider Department 12/02/17 9:00 AM ALIYAH BERNARD During your visit today, we recorded the following information about you: Blood pressure Weight Height 142/84 98.9 kg 1.655 m Aliyah Khan MD 12/02/2017 10:49 AM Signed Lauryn Brumfield is a 67 year old who presents for her annual gynecologic exam with complaints, urine leakage first thing in the morning. .pt reports some mild USI during the day if she has a full bladder but as soon as she wakes up most of the time she can't make it to bathroom without urinating on self. Pt reports Blood sugars not well controlled on metformin. Pt reports drinking 2 cups tea in morning and lots of water and sparkling water during the day. Works at [employer]- planning detention this year. Postmenopausal: Yes HRT use: No. Last Pap: 2012 normal HPV: 2012 negative History of abnormal pap: No Last mammogram: 2018 pending History of abnormal mammogram: No Sexually active: Yes History of STDS: None Patient concerns for STD exposure: No. Pain with intercourse: No Postcoital bleeding: No Hot flashes: No Night sweats: No Vaginal dryness: No Exercise: active Diet: balanced Obstetric History T2 L2 SAB0 TAB1 Ectopic0 Multiple0 Live Births0 PAST MEDICAL HISTORY Diagnosis Date - Cardiomyopathy in other diseases classified elsewhere echo 2009-normal EF - Complication of anesthesia - Diverticulosis of colon (without mention of hemorrhage) - Esophageal reflux Gastroesophageal reflux - Internal hemorrhoids without mention of complication - Mental disorder - Myalgia and myositis, unspecified Fibromyalgia (myalgia and myositis) - PMH - PAST MEDICAL HISTORY OF pre diabetic - Sleep apnea - Unspecified essential hypertension Essential hypertension PAST SURGICAL HISTORY Procedure Laterality Date - COLONOSCOP W/ OR W/O [facility] SPEC 1999 Colonoscopy-due 2009 - COLONOSCOP W/ OR W/O [facility] SPEC 01/29/10 - DENTAL SURGERY PROCEDURE 04/2010 laser top right teeth - EGD W/O OR W/BRUSH/WASH 05/2003 EGD - 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 - Stroke Mother - Alzheimer's Disease Father - Osteoporosis Sister - Thyroid Daughter - Cancer Brother kidney ca./renal cell - Coronary Artery Disease Brother OR, has a bad disc is the same as above - Cancer Maternal Grandmother liver ca. - Stroke Maternal Aunt SOCIAL HISTORY Social History Substance Use Topics - Smoking status: Former Smoker - Smokeless tobacco: Never Used Comment: was a casual smoker. Hasn't smoked since she was 48yrs. - Alcohol use No REVIEW OF SYSTEMS Abdomen: No abdominal pain, nausea, vomiting, diarrhea, or constipation. No bloating, early satiety, indigestion, or increased flatulence. Bladder: No dysuria, gross hematuria. See hpi Breast: No breast lumps, nipple d/c, overlying skin changes, redness or skin retraction Allergies and current medication updated:Yes EXAM: There were no vitals taken for this visit. GENERAL: pleasant, female in no apparent distress HEENT: Normocephalic, atraumatic, mucus membranes moist and no lesions NECK: Supple, full range of motion, no adenopathy and thyroid normal DERMATOLOGY: Normal, without lesions, non-icteric and non-hirsute BREAST: soft, non-tender, symmetric, no dominant mass, normal nipple-areolar complex, no lymphadenopathy and no nipple discharge ABDOMEN: soft, non-tender and no masses PELVIC: external genitalia normal, normal Bartholin's glands, urethra, [place]'s glands, no vulvar lesions, no cervical lesions, good vaginal support, physiologic discharge present, normal appearing perineal body and perianal region BIMANUAL: uterus normal size, shape and consistency, no adnexal masses and non-tender RECTOVAGINAL: deferred. NEURO: alert and oriented x3,exam grossly non-focal EXTREMITIES: normal ASSESSMENT/PLAN: 1) Health maintenance: Pap/HPV screening no longer needed Mammogram ordered Mammogram up to date Nutrition, exercise and routine health maintenance exams reviewed. Calcium/Vitamin D supplementation information provided. Colon cancer screening: up to date with screening BMD: up to date 2) Follow up one year or sooner as needed 3) urinary concerns reviewed- lifestyle modifications. Consider Detrol but would consider Urodynamics first due to uncontrolled DM. Recommend follow up with PCP for tighter control MD Annalee Pedroza Ma 12/02/2017 11:22 AM Signed Addended by: ANNALEE FREY MA on: 12/02/2017 11:22 AM Modules accepted: Orders Referring Provider: SELF [[id number]] Allergies As of Date: 12/02/2017 Noted Allergy Reaction metal [Other] 01/01/2007 2 - Rash 9 - Itching NICKEL 01/01/2007 2 - Rash 9 - Itching AMLODIPINE 04/07/2012 7 - Swelling LISINOPRIL 11/25/2011 3 - Cough Date Reviewed: 12/02/2017 Reviewed by: Aliyah [place] - Fully Assessed Reason for Visit: Yearly Exam [187] Primary Visit Diagnosis:Encounter for gynecological examination without abnormal finding [Z01.419] Other Visit Diagnoses:Encounter for screening mammogram for malignant neoplasm of breast [Z12.31] Urinary urgency [R39.15] OAB (overactive bladder) [N32.81] Order(s):ANA SCREENING [[id number]] Order #: [id number] FUTURE UA DIP B/O [[id number]] Order #: [id number] Prescriptions as of 12/02/2017 Sig: HYDROCHLOROTHIAZIDE 25 MG TAB* TAKE 1 TABLET BY MOUTH ONCE D* RESTASIS MULTIDOSE 0.05 % EYE* METFORMIN 500 MG TABLET TAKE 1 TABLET BY MOUTH TWICE * ORPHENADRINE CITRATE ER 100 M* TAKE 1 TABLET BY MOUTH EVERY * FLUOXETINE 20 MG CAPSULE TAKE 4 CAPSULES BY MOUTH ONCE* BENZONATATE 100 MG CAPSULE Take 1 capsule by mouth three* Patient not taking: Reported on 11/04/2017 ATENOLOL 50 MG TABLET Take 1 tablet by mouth twice * NAPROXEN 500 MG TABLET TAKE 1 TABLET BY MOUTH TWICE * LOSARTAN 100 MG TABLET TAKE 1 TABLET BY MOUTH ONCE D* ONETOUCH VERIO STRIPS TEST BLOOD SUGAR(S) 2 TO 3 TI* TRAZODONE 50 MG TABLET Take 1 tablet by mouth daily * SPIRONOLACTONE 25 MG TABLET TAKE 1 TABLET BY MOUTH EVERY * PENCICLOVIR 1 % TOPICAL CREAM Apply 1 application to affect* ARMODAFINIL 250 MG TABLET Take 250 mg by mouth once milton* COLESTIPOL 1 GRAM TABLET TAKE 1 TABLET BY MOUTH ONCE D* LANCETS Test blood sugar(s) 2 to 3 ti* LANCETS 33 GAUGE USE INSTRUCTED GABAPENTIN 100 MG CAPSULE Take 100 mg by mouth three ti* DAILY MULTIVITAMIN TABLET Take one(1) tablet daily. ADULT LOW DOSE ASPIRIN 81 MG * Take one(1) tablet daily. CALCIUM 600 + D(3) 600 MG-125* Take one(1) tablet daily. Problem List As Of Date 12/02/2017 Noted Resolved BENIGN HYPERTENSION [I10] INVALID FOR* Myalgia and myositis, unspecified [HBU8886] INVALID FOR*10/07/2016 Insomnia [G47.00] INVALID FOR* ESOPHAGEAL REFLUX [K21.9] INVALID FOR* Actinic keratosis [L57.0] INVALID FOR*07/04/2014 Inflamed seborrheic keratosis [L82.0] INVALID FOR*07/04/2014 Other chronic 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 radiation*INVALID FOR*07/04/2014 SOLAR LENGINES///DYSCHROMIA OTHER [L81.9] INVALID FOR*07/04/2014 Hyperlipidemia [E78.5] INVALID FOR* Sleep apnea [G47.30] INVALID FOR* More... Glucose intolerance (pre-diabetes) [R73.03] INVALID FOR*09/09/2013 Arthritis of knee, degenerative [M17.10] INVALID FOR*10/07/2016 Type 2 diabetes mellitus without complication (*INVALID FOR* Spinal stenosis of lumbar region [M48.061] INVALID FOR* Primary osteoarthritis of left knee [M17.12] INVALID FOR* Pain in left knee [M25.562] INVALID FOR*10/07/2016 Marital conflict [Z63.0] INVALID FOR*10/07/2016 Adjustment disorder with mixed anxiety and depr*INVALID FOR* Obesity (BMI 30.0-34.9) [E66.9] INVALID FOR* Inflammatory polyarthritis (HCC) [M06.4] INVALID FOR* More... Family history of ischemic heart disease [Z82.4*INVALID FOR* More... Obesity (BMI 35.0-39.9 without comorbidity) [E6*INVALID FOR* Aortic valve sclerosis [I35.8] INVALID FOR* Asthma with chronic obstructive pulmonary disea*INVALID FOR* More... Disposition: Return in 1 year (on 12/02/2018) for Annual Exam. Follow-up and Disposition History Recorded Encounter Status:Closed by ALIYAH COLORADO MD on 12/02/17 PROGRESS Observed: 12/02/2017 Status: COMPLETED Source: [place] 8:55 AM [facility] [place] REPOSITORY HNO ID: [id number] Author: Aliyah [place] Service: (none) Author Type: Physician Type: Progress Notes Filed: 12/02/2017 10:49 AM Note Text: Lauryn Brumfield is a 67 year old who presents for her annual gynecologic exam with complaints, urine leakage first thing in the morning. .pt reports some mild USI during the day if she has a full bladder but as soon as she wakes up most of the time she can't make it to bathroom without urinating on self. Pt reports Blood sugars not well controlled on metformin. Pt reports drinking 2 cups tea in morning and lots of water and sparkling water during the day. Works at [employer]- planning detention this year. Postmenopausal: Yes HRT use: No. Last Pap: 2012 normal HPV: 2012 negative History of abnormal pap: No Last mammogram: 2018 pending History of abnormal mammogram: No Sexually active: Yes History of STDS: None Patient concerns for STD exposure: No. Pain with intercourse: No Postcoital bleeding: No Hot flashes: No Night sweats: No Vaginal dryness: No Exercise: active Diet: balanced Obstetric History T2 L2 SAB0 TAB1 Ectopic0 Multiple0 Live Births0 PAST MEDICAL HISTORY Diagnosis Date - Cardiomyopathy in other diseases classified elsewhere echo 2009-normal EF - Complication of anesthesia - Diverticulosis of colon (without mention of hemorrhage) - Esophageal reflux Gastroesophageal reflux - Internal hemorrhoids without mention of complication - Mental disorder - Myalgia and myositis, unspecified Fibromyalgia (myalgia and myositis) - PMH - PAST MEDICAL HISTORY OF pre diabetic - Sleep apnea - Unspecified essential hypertension Essential hypertension PAST SURGICAL HISTORY Procedure Laterality Date - COLONOSCOP W/ OR W/O [facility] SPEC 1999 Colonoscopy-due 2009 - COLONOSCOP W/ OR W/O [facility] SPEC 01/29/10 - DENTAL SURGERY PROCEDURE 04/2010 laser top right teeth - EGD W/O OR W/BRUSH/WASH 05/2003 EGD - 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 - Stroke Mother - Alzheimer's Disease Father - Osteoporosis Sister - Thyroid Daughter - Cancer Brother kidney ca./renal cell - Coronary Artery Disease Brother OR, has a bad disc is the same as above - Cancer Maternal Grandmother liver ca. - Stroke Maternal Aunt SOCIAL HISTORY Social History Substance Use Topics - Smoking status: Former Smoker - Smokeless tobacco: Never Used Comment: was a casual smoker. Hasn't smoked since she was 48yrs. - Alcohol use No REVIEW OF SYSTEMS Abdomen: No abdominal pain, nausea, vomiting, diarrhea, or constipation. No bloating, early satiety, indigestion, or increased flatulence. Bladder: No dysuria, gross hematuria. See hpi Breast: No breast lumps, nipple d/c, overlying skin changes, redness or skin retraction Allergies and current medication updated:Yes EXAM: There were no vitals taken for this visit. GENERAL: pleasant, female in no apparent distress HEENT: Normocephalic, atraumatic, mucus membranes moist and no lesions NECK: Supple, full range of motion, no adenopathy and thyroid normal DERMATOLOGY: Normal, without lesions, non-icteric and non-hirsute BREAST: soft, non-tender, symmetric, no dominant mass, normal nipple-areolar complex, no lymphadenopathy and no nipple discharge ABDOMEN: soft, non-tender and no masses PELVIC: external genitalia normal, normal Bartholin's glands, urethra, [place]'s glands, no vulvar lesions, no cervical lesions, good vaginal support, physiologic discharge present, normal appearing perineal body and perianal region BIMANUAL: uterus normal size, shape and consistency, no adnexal masses and non-tender RECTOVAGINAL: deferred. NEURO: alert and oriented x3,exam grossly non-focal EXTREMITIES: normal ASSESSMENT/PLAN: 1) Health maintenance: Pap/HPV screening no longer needed Mammogram ordered Mammogram up to date Nutrition, exercise and routine health maintenance exams reviewed. Calcium/Vitamin D supplementation information provided. Colon cancer screening: up to date with screening BMD: up to date 2) Follow up one year or sooner as needed 3) urinary concerns reviewed- lifestyle modifications. Consider Detrol but would consider Urodynamics first due to uncontrolled DM. Recommend follow up with PCP for tighter control Aliyah Khan MD [facility] SCREENING Observed: 12/02/2017 Status: F Source: [place] 8:45 AM [facility] [place] REPOSITORY * * *Final Report* * * DATE OF EXAM: Dec 02 2017 8:45AM WOW [id number] - [facility] SCREENING / PROCEDURE REASON: Encounter for screening mammogram for malignant neoplasm of breast * * * * Physician Interpretation * * * * RESULT: #[id number] - [facility] SCREENING BILATERAL DIGITAL SCREENING MAMMOGRAM WITH CAD: 12/02/2017 HISTORY: Encounter For Screening Mammogram For Malignant Neoplasm Of Breast\ /patient reports no breast symptoms /priors available for comparison. RESULT: TECHNIQUE: The study was acquired using full field digital technology and interpreted from soft copy. Current study was also evaluated with a Computer Aided Detection (CAD). Comparison is made to exams dated: 11/22/2016 mammogram, 07/06/2015 mammogram, 07/04/2014 mammogram, and 06/21/2013 mammogram - [facility]. The tissue of both breasts is heterogeneously dense. This may lower the sensitivity of mammography. No significant masses, calcifications, or other findings are seen in either breast. There has been no significant interval change. IMPRESSION: NEGATIVE There is no mammographic evidence of malignancy. A 1 year screening mammogram is recommended. Malick aguero/shawn:12/02/2017 09:50:25 Frame Builder: Meredith GARCIA(Thi)(Darius), [facility] letter sent: Normal over 40 Mammogram BI-RADS: 1 Negative Rotary Engraver: Shawn Transcribe Date/Time: Dec 02 2017 8:46A Dictated by: MALICK CERVANTES MD This examination was interpreted and the report reviewed and electronically signed by: MALICK CERVANTES MD on Dec 02 2017 9:50AM EST [id number] SED RATE WESTERGREN Collected: 11/12/2017 Status: F Source: [place] 4:45 PM [facility] REPOSITORY TYPE CODE TESTS RESULT OUT OF REFERENCE UNITS RANGE LAB WSR 0-20 mm/hr Sed Rate Westergren 5 Performed By: #### WSR, BMP, HBA1C #### [facility] [address] [place] [address] BASIC METABOLIC PANL Collected: 11/12/2017 Status: F Source: [place] 4:45 PM [facility] REPOSITORY TYPE CODE TESTS RESULT OUT OF REFERENCE UNITS RANGE LAB GLU 74-99 mg/dL High Glucose 106 Result Comment: The [place] [employer] Association (ADA) provides guidance for cutoff values for fasting glucose and random glucose. The ADA defines fasting as no caloric intake for at least 8 hours. Fas ting plasma glucose results between 100 to 125 mg/dL indicate increased risk for diabetes (prediabetes). Fasting plasma glucose results greater than or equal to 126 mg/dL meet the criteria for diagnosis of diabetes. In the absence of unequivocal hyperglycemia, results should be confirmed by repeat testing. In a patient with classic symptoms of hyperglycemia or hyperglycemic crisis, random plasma glucose results greater than or equal to 200 mg/dL meet the criteria for diagnosis of diabetes. Reference: Standards of Medical Care in Diabetes 2016, [place] [employer] Association. Diabetes Care. 2016.39(Suppl 1). LAB BUN 7-21 mg/dL BUN High 23 LAB CRET 0.58-0.96 mg/dL Creatinine 0.60 LAB NA 136-144 mmol/L Sodium 136 LAB K 3.7-5.1 mmol/L Potassium 4.3 LAB CL 97-105 mmol/L Chloride 100 LAB CO2 22-30 mmol/L CO2 23 LAB AGAP 9-18 mmol/L Anion Gap 13 LAB CA 8.5-10.2 mg/dL Calcium, Total 9.9 LAB GFRAA eGFR- Amer. >60 LAB GFRNAA . eGFR-All Other Races >60 Result Comment: eGFR (Estimated GFR) Units of measure: mL/min/1.73 meters squared eGFR is derived from the reexpressed MDRD Study equation using the following parameters: serum creatinine, age, gender and race. The creatinine assay has been calibrated to be traceable to IDMS. An eGFR <60 mL/min/1.73m2 for >3 months is consistent with chronic kidney disease. Refer to KDOQI guidelines for clinical interpretation. In patients with unstable renal function, e.g. those with acute kidney injury, the eGFR may not accurately reflect actual GFR. Performed By: #### WSR, BMP, HBA1C #### [facility] [employer] [address] [place], [place] [address] HEMOGLOBIN A1C Collected: 11/12/2017 Status: F Source: [place] 4:45 PM [facility] REPOSITORY TYPE CODE TESTS RESULT OUT OF REFERENCE UNITS RANGE LAB HGBA1C 4.3-5.6 % High Hemoglobin A1c 6.4 LAB HBA0 mg/dL Est. Average Glucose 137 Result Comment: eAG: (Estimated average glucose) is a calculated value from HgbA1c and is union contract representative of the average blood glucose level in the last 2-3 month period. Performed By: #### WSR, BMP, HBA1C #### [facility] [employer] [address] [place], [place] [address] CNPN Observed: 11/12/2017 Status: COMPLETED Source: [place] 12:00 AM [facility] REPOSITORY Telephone ([facility]) LAURYN BRUMFIELD ([id number]) 1950 F Date Time Provider Department 11/12/17 RHETT DORSEY [facility] During your visit today, we recorded the following information about you: Lizy Parker, RN, RN 11/12/2017 4:31 PM Signed Pt called, stating she thought she was to get labs, called Jeannie and was told no labs ordered. I advised 3 labs were ordered in Apr 2017 in anticipation of upcoming 11/04/2017 appt. Advised pt labs are still available and can have done at earliest convenience. Pt verbalizes understanding. Mindy Hector APRN.SUPERVISOR OF RESEARCH 11/13/2017 11:01 AM Addendum Labs done and resulted. Mindy Hector APRN.SUPERVISOR OF RESEARCH Allergies As of Date: 11/12/2017 Noted Allergy Reaction metal [Other] 01/01/2007 2 - Rash 9 - Itching NICKEL 01/01/2007 2 - Rash 9 - Itching AMLODIPINE 04/07/2012 7 - Swelling LISINOPRIL 11/25/2011 3 - Cough Date Reviewed: 11/04/2017 Reviewed by: [place] Ma - Fully Assessed Reason for Visit: Labs [Other] Prescriptions as of 11/12/2017 Sig: HYDROCHLOROTHIAZIDE 25 MG TAB* TAKE 1 TABLET BY MOUTH ONCE D* RESTASIS MULTIDOSE 0.05 % EYE* METFORMIN 500 MG TABLET TAKE 1 TABLET BY MOUTH TWICE * ORPHENADRINE CITRATE ER 100 M* TAKE 1 TABLET BY MOUTH EVERY * FLUOXETINE 20 MG CAPSULE TAKE 4 CAPSULES BY MOUTH ONCE* BENZONATATE 100 MG CAPSULE Take 1 capsule by mouth three* Patient not taking: Reported on 11/04/2017 ATENOLOL 50 MG TABLET Take 1 tablet by mouth twice * NAPROXEN 500 MG TABLET TAKE 1 TABLET BY MOUTH TWICE * LOSARTAN 100 MG TABLET TAKE 1 TABLET BY MOUTH ONCE D* ONETOUCH VERIO STRIPS TEST BLOOD SUGAR(S) 2 TO 3 TI* TRAZODONE 50 MG TABLET Take 1 tablet by mouth daily * SPIRONOLACTONE 25 MG TABLET TAKE 1 TABLET BY MOUTH EVERY * PENCICLOVIR 1 % TOPICAL CREAM Apply 1 application to affect* ARMODAFINIL 250 MG TABLET Take 250 mg by mouth once milton* COLESTIPOL 1 GRAM TABLET TAKE 1 TABLET BY MOUTH ONCE D* LANCETS Test blood sugar(s) 2 to 3 ti* LANCETS 33 GAUGE USE INSTRUCTED GABAPENTIN 100 MG CAPSULE Take 100 mg by mouth three ti* DAILY MULTIVITAMIN TABLET Take one(1) tablet daily. ADULT LOW DOSE ASPIRIN 81 MG * Take one(1) tablet daily. CALCIUM 600 + D(3) 600 MG-125* Take one(1) tablet daily. Problem List As Of Date 11/12/2017 Noted Resolved BENIGN HYPERTENSION [I10] INVALID FOR* Myalgia and myositis, unspecified [[id number]] INVALID FOR*10/07/2016 Insomnia [G47.00] INVALID FOR* ESOPHAGEAL REFLUX [K21.9] INVALID FOR* Actinic keratosis [L57.0] INVALID FOR*07/04/2014 Inflamed seborrheic keratosis [L82.0] INVALID FOR*07/04/2014 Other chronic 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 radiation*INVALID FOR*07/04/2014 SOLAR LENGINES///DYSCHROMIA OTHER [L81.9] INVALID FOR*07/04/2014 Hyperlipidemia [E78.5] INVALID FOR* Sleep apnea [G47.30] INVALID FOR* More... Glucose intolerance (pre-diabetes) [R73.03] INVALID FOR*09/09/2013 Arthritis of knee, degenerative [M17.10] INVALID FOR*10/07/2016 Type 2 diabetes mellitus without complication (*INVALID FOR* Spinal stenosis of lumbar region [M48.061] INVALID FOR* Primary osteoarthritis of left knee [M17.12] INVALID FOR* Pain in left knee [M25.562] INVALID FOR*10/07/2016 Marital conflict [Z63.0] INVALID FOR*10/07/2016 Adjustment disorder with mixed anxiety and depr*INVALID FOR* Obesity (BMI 30.0-34.9) [E66.9] INVALID FOR* Inflammatory polyarthritis (HCC) [M06.4] INVALID FOR* More... Family history of ischemic heart disease [Z82.4*INVALID FOR* More... Obesity (BMI 35.0-39.9 without comorbidity) [E6*INVALID FOR* Aortic valve sclerosis [I35.8] INVALID FOR* Asthma with chronic obstructive pulmonary disea*INVALID FOR* More... Encounter Status:Closed by MINDY HECTOR CNP on 11/13/17 PROGRESS Observed: 11/04/2017 Status: COMPLETED Source: [place] 4:51 PM [facility] [place] REPOSITORY O ID: [id number] Author: Rhett Dorsey Service: (none) Author Type: Physician Type: Progress Notes Filed: 11/04/2017 6:14 PM Note Text: Patient presents with: F/U 6 Month HPI: Patient presents today for office visit for follow up. DM:no low sugars spells. Often in 150's HYPERTENSION:bp is initially up. No chest pain. No shortness of breath. No new edema. KAYCEE:overall ok. Using cpap. RHEUM: been told she needs a knee replacement. Does not want to go back to see rheum. No pain on laying on left hip but having more pain in that area. No pain going down the leg. No numbness or weakness. Wants to hold on surgery. Psych:emotionally doing well. MEDICATIONS: Current Outpatient Prescriptions: RESTASIS MULTIDOSE 0.05 % drop metFORMIN (GLUCOPHAGE) 500 mg tablet TAKE 1 TABLET BY MOUTH TWICE DAILY WITH MEALS. orphenadrine ER (NORFLEX) 100 mg tablet TAKE 1 TABLET BY MOUTH EVERY DAY FLUoxetine (PROZAC) 20 mg capsule TAKE 4 CAPSULES BY MOUTH ONCE DAILY. atenolol (TENORMIN) 50 mg tablet Take 1 tablet by mouth twice daily. hydroCHLOROthiazide (HYDRODIURIL, ESIDRIX) 25 mg tablet TAKE 1 TABLET BY MOUTH ONCE DAILY. naproxen (NAPROSYN) 500 mg tablet TAKE 1 TABLET BY MOUTH TWICE A DAY WITH MEALS NEEDED losartan (COZAAR) 100 mg tablet TAKE 1 TABLET BY MOUTH ONCE DAILY. ONETOUCH VERIO test strip TEST BLOOD SUGAR(S) 2 TO 3 TIMES DAILY. DX: TYPE 2 DM - CONTROLLED E11.9 INSULIN: NO traZODone (DESYREL) 50 mg tablet Take 1 tablet by mouth daily at bedtime. spironolactone (ALDACTONE) 25 mg tablet TAKE 1 TABLET BY MOUTH EVERY DAY penciclovir (DENAVIR) 1 % cream Apply 1 application to affected area twice daily as needed. armodafinil (NUVIGIL) 250 mg tab Take 250 mg by mouth once daily. colestipol (COLESTID) 1 gram tablet TAKE 1 TABLET BY MOUTH ONCE DAILY. Lancets lancets Test blood sugar(s) 2 to 3 times daily. Dx: Type 2 DM - Controlled E11.9 Insulin: No. Uses One Touch Verio Meter. lancets (ONE TOUCH DELICA) 33 gauge misc USE INSTRUCTED gabapentin (NEURONTIN) 100 mg capsule Take 100 mg by mouth three times daily. multivitamins(DAILY MULTIVITAMIN TAB) Take one(1) tablet daily. aspirin(ADULT LOW DOSE ASPIRIN 81 MG TAB, DELAYED RELEASE) Take one(1) tablet daily. CALCIUM 600 + D 600 MG-125 UNIT TAB Take one(1) tablet daily. benzonatate (TESSALON PERLE) 100 mg capsule Take 1 capsule by mouth three times daily as needed. (Patient not taking: Reported on 11/04/2017 ) No current facility-administered medications for this visit. ALLERGIES: ALLERGIES Allergen Reactions - Metal [Other] Rash, Itching - Nickel Rash, Itching - Amlodipine Swelling - Lisinopril Cough PAST MEDICAL HISTORY Diagnosis Date - Cardiomyopathy in other diseases classified elsewhere echo 2008-normal EF - Complication of anesthesia - Diverticulosis of colon (without mention of hemorrhage) - Esophageal reflux Gastroesophageal reflux - Internal hemorrhoids without mention of complication - Mental disorder - Myalgia and myositis, unspecified Fibromyalgia (myalgia and myositis) - PMH - PAST MEDICAL HISTORY OF pre diabetic - Sleep apnea - Unspecified essential hypertension Essential hypertension PAST SURGICAL HISTORY Procedure Laterality Date - COLONOSCOP W/ OR W/O [facility] SPEC 1999 Colonoscopy-due 2009 - COLONOSCOP W/ OR W/O [facility] SPEC 01/29/10 - DENTAL SURGERY PROCEDURE 04/2010 laser top right teeth - EGD W/O OR W/BRUSH/WASH 05/2003 EGD - 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 - Stroke Mother - Alzheimer's Disease Father - Osteoporosis Sister - Thyroid Daughter - Cancer Brother kidney ca./renal cell - Coronary Artery Disease Brother OR, has a bad disc is the same as above - Cancer Maternal Grandmother liver ca. 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 Hasn't smoked since she was 48yrs. Alcohol use: No Drug use: No Sexual activity: No Reviewed current medications, allergies, past medical history, surgical history, family history and social history today. REVIEW OF SYSTEMS All other reviewed and negative other than HPI. HEALTH MAINTENANCE: Reviewed health maintenance issues today and recommended the following in detail. DIABETIC FOOT EXAM due on 10/07/2017 HBA1C due on 10/28/2017 MAMMOGRAM due on 11/22/2017 VITALS: BP 135/78 Pulse 68 Temp 37.3 ?C (99.1 ?F) (Left Tympanic) Resp 20 Wt 99.2 kg (218 lb 9.6 oz) BMI 35.55 kg/m? Last 4 Encounter Wt Readings: Date: Wt: 11/04/2017 99.2 kg (218 lb 9.6 oz) 05/02/2017 100.2 kg (221 lb) 01/21/2017 101.2 kg (223 lb) 01/13/2017 99.8 kg (220 lb) PHYSICAL EXAMINATION: General appearance: Well appearing, alert, in no acute distress, well-hydrated, well nourished. Skin: Skin color, texture, turgor normal, no suspicious rashes or lesions Neck: Supple, no adenopathy; thyroid symmetric, normal size, no bruits Lungs: Lungs clear to auscultation. No wheezing, rhonchi, rales Heart: RRR without murmur, gallop, or rubs. No ectopy Abdomen: Normal abdominal exam, Abdomen soft, non-tender. Bowel sounds normal. No masses, organomegaly Feet:Shoes and socks removed, No deformities, ulcers, calluses, normal distal pulses, sensitive to 10 gm monofilament and small area on outside of left foot-? Had a splinter there for last month. Looks like small scab. Discussed watching closely. Call If worsens not better in a few weeks. ASSESSMENT/PLAN: 1. Essential hypertension, benign - ICD9: 401.1, ICD10: I10 (primary diagnosis) - good control - Continue current medication(s) - Goal of BP <140/90 2. Visit for screening mammogram - ICD9: V76.12, ICD10: Z12.31 - Follow up for annual exam in one year. - ANA SCREENING 3. Adjustment disorder with mixed anxiety and depressed mood - ICD9: 309.28, ICD10: F43.23 - continue meds. 4. Primary osteoarthritis of left knee - ICD9: 715.16, ICD10: M17.12 - 5. Type 2 diabetes mellitus without complication, without long-term current use of insulin (HCC) - ICD9: 250.00, ICD10: E11.9 -check labs 6. Sleep apnea, unspecified type - ICD9: 780.57, ICD10: G47.30 - follow with sleep med 7. Hyperlipidemia, unspecified hyperlipidemia type - ICD9: 272.4, ICD10: E78.5 8. Insomnia, unspecified type - ICD9: 780.52, ICD10: G47.00 - as above. 9. Inflammatory polyarthritis (HCC) - ICD9: 714.9, ICD10: M06.4 - markers are stable. Declines follow up 10. Family history of ischemic heart disease - ICD9: V17.3, ICD10: Z82.49 Follow with cardio 11. Asthma with chronic obstructive pulmonary disease (COPD) (HCC) - ICD9: 493.20, ICD10: J44.9 - see pulm Rhett Dorsey MD CNOV Observed: 11/04/2017 Status: COMPLETED Source: [place] 4:40 PM [facility] REPOSITORY Office Visit (FAMPWS) LAURYN BRUMFIELD ([id number]) 1950 F Date Time Provider Department 11/04/17 4:40 PM RHETT DORSEYWS During your visit today, we recorded the following information about you: Temperature Pulse Respiration Blood pressure 99.1 degrees 68/minute 20/minute 135/78 Weight 99.2 kg Rhett Dorsey MD 11/04/2017 6:14 PM Signed Patient presents with: F/U 6 Month HPI: Patient presents today for office visit for follow up. DM:no low sugars spells. Often in 150's HYPERTENSION:bp is initially up. No chest pain. No shortness of breath. No new edema. KAYCEE:overall ok. Using cpap. RHEUM: been told she needs a knee replacement. Does not want to go back to see rheum. No pain on laying on left hip but having more pain in that area. No pain going down the leg. No numbness or weakness. Wants to hold on surgery. Psych:emotionally doing well. MEDICATIONS: Current Outpatient Prescriptions: RESTASIS MULTIDOSE 0.05 % drop metFORMIN (GLUCOPHAGE) 500 mg tablet TAKE 1 TABLET BY MOUTH TWICE DAILY WITH MEALS. orphenadrine ER (NORFLEX) 100 mg tablet TAKE 1 TABLET BY MOUTH EVERY DAY FLUoxetine (PROZAC) 20 mg capsule TAKE 4 CAPSULES BY MOUTH ONCE DAILY. atenolol (TENORMIN) 50 mg tablet Take 1 tablet by mouth twice daily. hydroCHLOROthiazide (HYDRODIURIL, ESIDRIX) 25 mg tablet TAKE 1 TABLET BY MOUTH ONCE DAILY. naproxen (NAPROSYN) 500 mg tablet TAKE 1 TABLET BY MOUTH TWICE A DAY WITH MEALS NEEDED losartan (COZAAR) 100 mg tablet TAKE 1 TABLET BY MOUTH ONCE DAILY. ONETOUCH VERIO test strip TEST BLOOD SUGAR(S) 2 TO 3 TIMES DAILY. DX: TYPE 2 DM - CONTROLLED E11.9 INSULIN: NO traZODone (DESYREL) 50 mg tablet Take 1 tablet by mouth daily at bedtime. spironolactone (ALDACTONE) 25 mg tablet TAKE 1 TABLET BY MOUTH EVERY DAY penciclovir (DENAVIR) 1 % cream Apply 1 application to affected area twice daily as needed. armodafinil (NUVIGIL) 250 mg tab Take 250 mg by mouth once daily. colestipol (COLESTID) 1 gram tablet TAKE 1 TABLET BY MOUTH ONCE DAILY. Lancets lancets Test blood sugar(s) 2 to 3 times daily. Dx: Type 2 DM - Controlled E11.9 Insulin: No. Uses One Touch Verio Meter. lancets (ONE TOUCH [employer]) 33 gauge misc USE INSTRUCTED gabapentin (NEURONTIN) 100 mg capsule Take 100 mg by mouth three times daily. multivitamins(DAILY MULTIVITAMIN TAB) Take one(1) tablet daily. aspirin(ADULT LOW DOSE ASPIRIN 81 MG TAB, DELAYED RELEASE) Take one(1) tablet daily. CALCIUM 600 + D 600 MG-125 UNIT TAB Take one(1) tablet daily. benzonatate (TESSALON PERLE) 100 mg capsule Take 1 capsule by mouth three times daily as needed. (Patient not taking: Reported on 11/04/2017 ) No current facility-administered medications for this visit. ALLERGIES: ALLERGIES Allergen Reactions - Metal [Other] Rash, Itching - Nickel Rash, Itching - Amlodipine Swelling - Lisinopril Cough PAST MEDICAL HISTORY Diagnosis Date - Cardiomyopathy in other diseases classified elsewhere echo 2009-normal EF - Complication of anesthesia - Diverticulosis of colon (without mention of hemorrhage) - Esophageal reflux Gastroesophageal reflux - Internal hemorrhoids without mention of complication - Mental disorder - Myalgia and myositis, unspecified Fibromyalgia (myalgia and myositis) - PMH - PAST MEDICAL HISTORY OF pre diabetic - Sleep apnea - Unspecified essential hypertension Essential hypertension PAST SURGICAL HISTORY Procedure Laterality Date - COLONOSCOP W/ OR W/O [facility] SPEC 1999 Colonoscopy-due 2009 - COLONOSCOP W/ OR W/O [facility] SPEC 01/29/10 - DENTAL SURGERY PROCEDURE 04/2010 laser top right teeth - EGD W/O OR W/BRUSH/WASH 05/2003 EGD - 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 - Stroke Mother - Alzheimer's Disease Father - Osteoporosis Sister - Thyroid Daughter - Cancer Brother kidney ca./renal cell - Coronary Artery Disease Brother OR, has a bad disc is the same as above - Cancer Maternal Grandmother liver ca. 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 Hasn't smoked since she was 48yrs. Alcohol use: No Drug use: No Sexual activity: No Reviewed current medications, allergies, past medical history, surgical history, family history and social history today. REVIEW OF SYSTEMS All other reviewed and negative other than HPI. HEALTH MAINTENANCE: Reviewed health maintenance issues today and recommended the following in detail. DIABETIC FOOT EXAM due on 10/07/2017 HBA1C due on 10/28/2017 MAMMOGRAM due on 11/22/2017 VITALS: BP 135/78 Pulse 68 Temp 37.3 ?C (99.1 ?F) (Left Tympanic) Resp 20 Wt 99.2 kg (218 lb 9.6 oz) BMI 35.55 kg/m? Last 4 Encounter Wt Readings: Date: Wt: 11/04/2017 99.2 kg (218 lb 9.6 oz) 05/02/2017 100.2 kg (221 lb) 01/21/2017 101.2 kg (223 lb) 01/13/2017 99.8 kg (220 lb) PHYSICAL EXAMINATION: General appearance: Well appearing, alert, in no acute distress, well-hydrated, well nourished. Skin: Skin color, texture, turgor normal, no suspicious rashes or lesions Neck: Supple, no adenopathy; thyroid symmetric, normal size, no bruits Lungs: Lungs clear to auscultation. No wheezing, rhonchi, rales Heart: RRR without murmur, gallop, or rubs. No ectopy Abdomen: Normal abdominal exam, Abdomen soft, non-tender. Bowel sounds normal. No masses, organomegaly Feet:Shoes and socks removed, No deformities, ulcers, calluses, normal distal pulses, sensitive to 10 gm monofilament and small area on outside of left foot-? Had a splinter there for last month. Looks like small scab. Discussed watching closely. Call If worsens not better in a few weeks. ASSESSMENT/PLAN: 1. Essential hypertension, benign - ICD9: 401.1, ICD10: I10 (primary diagnosis) - good control - Continue current medication(s) - Goal of BP <140/90 2. Visit for screening mammogram - ICD9: V76.12, ICD10: Z12.31 - Follow up for annual exam in one year. - ANA SCREENING 3. Adjustment disorder with mixed anxiety and depressed mood - ICD9: 309.28, ICD10: F43.23 - continue meds. 4. Primary osteoarthritis of left knee - ICD9: 715.16, ICD10: M17.12 - 5. Type 2 diabetes mellitus without complication, without long-term current use of insulin (HCC) - ICD9: 250.00, ICD10: E11.9 -check labs 6. Sleep apnea, unspecified type - ICD9: 780.57, ICD10: G47.30 - follow with sleep med 7. Hyperlipidemia, unspecified hyperlipidemia type - ICD9: 272.4, ICD10: E78.5 8. Insomnia, unspecified type - ICD9: 780.52, ICD10: G47.00 - as above. 9. Inflammatory polyarthritis (HCC) - ICD9: 714.9, ICD10: M06.4 - markers are stable. Declines follow up 10. Family history of ischemic heart disease - ICD9: V17.3, ICD10: Z82.49 Follow with cardio 11. Asthma with chronic obstructive pulmonary disease (COPD) (HCC) - ICD9: 493.20, ICD10: J44.9 - see pulm Rhett Dorsey MD Referring Provider: RHETT DORSEY [[id number]] Allergies As of Date: 11/04/2017 Noted Allergy Reaction metal [Other] 01/01/2007 2 - Rash 9 - Itching NICKEL 01/01/2007 2 - Rash 9 - Itching AMLODIPINE 04/07/2012 7 - Swelling LISINOPRIL 11/25/2011 3 - Cough Date Reviewed: 11/04/2017 Reviewed by: [place] Ma - Fully Assessed Reason for Visit: F/U 6 Month [444] Primary Visit Diagnosis:Essential hypertension, benign [I10] Other Visit Diagnoses:Visit for screening mammogram [Z12.31] Adjustment disorder with mixed anxiety and depressed mood [F43.23] Primary osteoarthritis of left knee [M17.12] Type 2 diabetes mellitus without complication, without long-term current use of insulin (HCC) [E11.9] Sleep apnea, unspecified type [G47.30] Hyperlipidemia, unspecified hyperlipidemia type [E78.5] Insomnia, unspecified type [G47.00] Inflammatory polyarthritis ([facility]) [M06.4] Family history of ischemic heart disease [Z82.49] Asthma with chronic obstructive pulmonary disease (COPD) ([facility]) [J44.9] Pain of left hip joint [M25.552] Order(s):[facility] SCREENING [[id number]] Order #: [id number] FUTURE XR HIP GENERAL 3V PELV/AP/LAT LT [[id number]] Order #: [id number] FUTURE Prescriptions as of 11/04/2017 Sig: RESTASIS MULTIDOSE 0.05 % EYE* METFORMIN 500 MG TABLET TAKE 1 TABLET BY MOUTH TWICE * ORPHENADRINE CITRATE ER 100 M* TAKE 1 TABLET BY MOUTH EVERY * FLUOXETINE 20 MG CAPSULE TAKE 4 CAPSULES BY MOUTH ONCE* ATENOLOL 50 MG TABLET Take 1 tablet by mouth twice * HYDROCHLOROTHIAZIDE 25 MG TAB* TAKE 1 TABLET BY MOUTH ONCE D* NAPROXEN 500 MG TABLET TAKE 1 TABLET BY MOUTH TWICE * LOSARTAN 100 MG TABLET TAKE 1 TABLET BY MOUTH ONCE D* ONETOUCH VERIO STRIPS TEST BLOOD SUGAR(S) 2 TO 3 TI* TRAZODONE 50 MG TABLET Take 1 tablet by mouth daily * SPIRONOLACTONE 25 MG TABLET TAKE 1 TABLET BY MOUTH EVERY * PENCICLOVIR 1 % TOPICAL CREAM Apply 1 application to affect* ARMODAFINIL 250 MG TABLET Take 250 mg by mouth once [place]* COLESTIPOL 1 GRAM TABLET TAKE 1 TABLET BY MOUTH ONCE D* LANCETS Test blood sugar(s) 2 to 3 ti* LANCETS 33 GAUGE USE INSTRUCTED GABAPENTIN 100 MG CAPSULE Take 100 mg by mouth three ti* DAILY MULTIVITAMIN TABLET Take one(1) tablet daily. ADULT LOW DOSE ASPIRIN 81 MG * Take one(1) tablet daily. CALCIUM 600 + D(3) 600 MG-125* Take one(1) tablet daily. BENZONATATE 100 MG CAPSULE Take 1 capsule by mouth three* Patient not taking: Reported on 11/04/2017 Problem List As Of Date 11/04/2017 Noted Resolved BENIGN HYPERTENSION [I10] INVALID FOR* Myalgia and myositis, unspecified [[id number]] INVALID FOR*10/07/2016 Insomnia [G47.00] INVALID FOR* ESOPHAGEAL REFLUX [K21.9] INVALID FOR* Actinic keratosis [L57.0] INVALID FOR*07/04/2014 Inflamed seborrheic keratosis [L82.0] INVALID FOR*07/04/2014 Other chronic 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 radiation*INVALID FOR*07/04/2014 SOLAR LENGINES///DYSCHROMIA OTHER [L81.9] INVALID FOR*07/04/2014 Hyperlipidemia [E78.5] INVALID FOR* Sleep apnea [G47.30] INVALID FOR* More... Glucose intolerance (pre-diabetes) [R73.03] INVALID FOR*09/09/2013 Arthritis of knee, degenerative [M17.10] INVALID FOR*10/07/2016 Type 2 diabetes mellitus without complication (*INVALID FOR* Spinal stenosis of lumbar region [M48.061] INVALID FOR* Primary osteoarthritis of left knee [M17.12] INVALID FOR* Pain in left knee [M25.562] INVALID FOR*10/07/2016 Marital conflict [Z63.0] INVALID FOR*10/07/2016 Adjustment disorder with mixed anxiety and depr*INVALID FOR* Obesity (BMI 30.0-34.9) [E66.9] INVALID FOR* Inflammatory polyarthritis (HCC) [M06.4] INVALID FOR* More... Family history of ischemic heart disease [Z82.4*INVALID FOR* More... Obesity (BMI 35.0-39.9 without comorbidity) [E6*INVALID FOR* Aortic valve sclerosis [I35.8] INVALID FOR* Asthma with chronic obstructive pulmonary disea*INVALID FOR* More... Disposition: Return in about 3 months (around 02/04/2018). Follow-up and Disposition History Recorded Encounter Status:Closed by RHETT DORSEY MD on 11/04/17 PULMONARY VISIT REPORT Observed: 10/30/2017 Status: F Source: [place] 7:54 AM [facility] [place] [facility] [address] [place] [address] OFFICE VISIT Date of Service: 10/30/17 MR#: [id number] Acct: [id number] Name: LAURYN BRUMFIELD Rep #: [id number] : 1950 Provider: Noel Dunlap D.O. Age/Sex: 67/F Location: [facility].[facility] Status: Signed Assessment AND Plan 1. Dyspnea on exertion R06.09 Plan Possibly related to an underlying obstructive airway defect, in conjunction with obesity and generalized deconditioning. We will plan at this time to obtain baseline pulmonary function testing along with a 6 minute walk test to assess for any exertional hypoxia. There is demonstrated evidence of an obstructive ventilatory impairment, consideration can be given to the initiation of inhalers at her follow-up office visit. Orders Orders: 2. KAYCEE (obstructive sleep apnea) G47.33 Plan Continue nocturnal CPAP therapy and follow-up with [facility] as scheduled. 3. Obesity E66.9 Plan Weight loss through dietary modification and a graded exercise regimen is strongly encouraged. Plan Detail Follow Up 6 Weeks (CSM) HPI HPI Comments Details: The patient is a 67-year-old female who presents to the clinic today in referral for evaluation of dyspnea on exertion. The patient has been followed by the [facility] for a history of hypertension. She also has a significant family history of coronary artery disease. The patient has chronic exertional dyspnea. Patient did have a normal pharmacologic myocardial stress test in March 2017. Surface echocardiogram revealed mild concentric LVH with an ejection fraction of 55%. The patient does have a 51-homz-ywlc smoking history, having quit completely 19 years ago. She also experienced significant secondhand smoke exposure from her now , who was a heavy smoker. Her shortness of breath is primarily exertional in nature. She does experience a dry, occasional cough. She denies chest tightness or wheezing. She is not currently utilizing any inhalers at her baseline. She has never undergone formal pulmonary function testing. Her weight has been stable. She has lived in [place] her entire life. 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 The patient does have a history of obstructive sleep apnea, for which she currently utilizes nocturnal CPAP therapy. She is followed by sleep medicine at [facility]. He denies fevers, chills or night sweats. She denies chest pain, dizziness or lightheadedness. Intake Vital Signs10/30/17 Height 5 ft 5 in 10/30/17 Weight: 216 lb Intake Visit Reasons: DYSPNEA ON EXERTION Accompanied by: Self Allergies amlodipine Adverse Reaction (Severe, Verified 09/12/17 16:03) Unknown nickel Adverse Reaction (Severe, Verified 09/12/17 16:03) Unknown lisinopril Adverse Reaction (Mild, Verified 10/30/17 07:34) Other - cough Medications armodafinil 250 mg tablet 250 mg PO QDAY tab 09/09/17 [History Confirmed 10/30/17] aspirin 81 mg tablet,delayed release 81 mg PO QDAY 09/09/17 [History Confirmed 10/30/17] calcium carbonate 600 mg (1,500 mg)-vitamin D3 200 unit tablet 1 tab PO QDAY 09/09/17 [History Confirmed 10/30/17] colestipol 1 gram tablet 1 g PO QDAY tab 09/09/17 [History Confirmed 10/30/17] fluoxetine 20 mg capsule See Label Instructions PO QDAY 09/09/17 [History Confirmed 10/30/17] gabapentin 100 mg capsule 100 mg PO TID cap 09/09/17 [History Confirmed 10/30/17] hydrochlorothiazide 25 mg tablet 25 mg PO QDAY 09/09/17 [History Confirmed 10/30/17] losartan 100 mg tablet 100 mg PO QDAY 09/09/17 [History Confirmed 10/30/17] orphenadrine citrate ER 100 mg tablet,extended release 100 mg PO QDAY tab 09/09/17 [History Confirmed 10/30/17] oxazepam 15 mg capsule 15 mg PO QHS PRN 09/09/17 [History Confirmed 10/30/17] trazodone 50 mg tablet 50 mg PO QHS tab 09/09/17 [History Confirmed 10/30/17] atenolol 50 mg tablet 50 mg PO BID tab 09/12/17 [History Confirmed 10/30/17] cyclosporine 0.05 % eye drops in a dropperette 1 drp OPHTHALMIC Q12H 10/30/17 [History Confirmed 10/30/17] metformin 500 mg tablet 500 mg PO BID 10/30/17 [History Confirmed 10/30/17] multivitamin tablet 1 tab PO QAM 10/30/17 [History Confirmed 10/30/17] naproxen 500 mg tablet 500 mg PO BID PRN 10/30/17 [History Confirmed 10/30/17] spironolactone 50 mg tablet 25 mg PO QDAY tab 10/30/17 [History Confirmed 10/30/17] PFS Medical History Dyspnea on exertion (Chronic) Encounter for long-term current use of high risk medication (Chronic) Hypertension (Chronic) Hyperlipidemia (Chronic) Abnormal findings on diagnostic imaging of heart and coronary circulation (Chronic) Pericardial effusion (noninflammatory) (Chronic) Nonrheumatic mitral valve insufficiency (Chronic) Non-rheumatic tricuspid valve insufficiency (Chronic) Acoustic neuroma (Chronic) Benign hypertension (Chronic) Dyspnea on exertion (Acute) Hemoptysis (Acute) Skin cancer (Acute) Adjustment disorder with mixed anxiety and depressed mood (Chronic) Aortic valve sclerosis (Chronic) Bacterial sinusitis (Chronic) Esophageal reflux (Chronic) Inflammatory polyarthritis (Chronic) Insomnia (Chronic) Obesity (Chronic) Primary osteoarthritis of left knee (Chronic) Sleep apnea (Chronic) Spinal stenosis of lumbar region (Chronic) Type 2 diabetes mellitus (Chronic) Surgical History H/O brain surgery (Resolved) H/O foot surgery (Resolved) Family History Brother CAD (coronary artery disease) Cancer Mother CVA (cerebral vascular accident) Father Alzheimers disease Grandmother Cancer Social History household members: none housing: house current occupational status: employed current occupation: [employer] pets and animals: Yes pets and animals: dog(s) Smoking Status: Former smoker quit date: 05/05/98 pack-years: 35 how long ago did patient quit smokin second hand exposure: Yes alcohol intake: never substance use type: does not use caffeine: Yes Type: coffee Number of servings: 2 what type of physical activity do you participate in: none Review of Systems Const CONSTITUTIONAL: Positive fatigue; negative anorexia, body ache, chills, daytime sleepiness, fever(s), night sweats, oral thrush, stops breathing during sleep, weight loss, sleeping in chair, weight loss, weight gain, frequent colds, seasonal allergies, other, headache(s) or orthopnea EETM Ear Nose Throat Mouth: Positive hearing normal; negative hard of hearing, hoarseness, dry mouth in morning, change in vision, itchy eyes, eye pain, swallowing Difficulty, ear pain, nose bleed, headache(s), mouth pain, nasal congestion, nasal discharge, post nasal drip, sinus pain, sinus pressure, sore throat or other Cardio Cardiovascular: Negative chest pain, chest pain at rest, chest pain with activity, irregular heart rhythm, edema, shortness of breath when lying down, palpitations, murmur or other Resp Respiratory: Positive as per HPI, shortness of breath shortness of breath: Positive with activity and cough cough: Positive non-productive; negative pain with cough, wheezing, chest congestion, chest tightness, pain on inspiration, inhalers, increase use of rescue inhalers, snoring, apnea or other Gastro Gastrointestional: Negative bloody stools, change in appetite, difficulty swallowing, reflux, hematemesis, melena stool, loose stool, constipation or other Genitourinary: Negative blood in urine, nocturia, pain with urination or other Musc Musculoskeletal: Negative body pain, back pain, neck pain or other Skin/Breast Skin/Breast: Negative dry skin, itching, rash, unusual bruising, breast lump or other Neuro Neurological: Negative restless legs, confusion, weakness or other Psych Psychocological: Negative abnormal sleep pattern, anxiety, thoughts of hurting self/others, hopelessness or other Lymph Lymphatic: Negative easy bleeding, easy bruising, swollen lymph nodes or other Exam Const Constitutional: Positive conversant, cooperative, in no acute respiratory distress, well developed, well nourished, good hygiene and obese Head Head: Positive normocephalic and atraumatic; negative cyanosis of lips/distal nose Eyes Eye: Positive clear conjunctiva; negative nystagmus or scleral abnormality Ears Ear: Positive hearing normal and external ears normal; negative hard of hearing Nose Nose: Positive external nose normal; negative epistaxis Mouth Mouth: Positive oral mucosae normal and posterior oropharynx is adequate; negative no lesions or post nasal drip Mallampati Score: II: Mallampati Score Neck Neck: Positive normal visual inspection, trachea midline and thick neck; negative lymphadenopathy Chest Wall Chest: Positive symmetric chest movement Normal AP diameter. Resp lung sounds: Positive clear to auscultation and good air exchange; negative wheezes, rhonchi or rales Cardio Cardiac: Positive regular rate, regular rhythm, S1 normal and S2 normal; negative rub, gallop or murmur GI GI: Positive normal bowel sounds and obese Soft without distention Genitourinary: Positive deferred Musc Musculoskeletal: Positive steady gait Skin Pulmonary Skin Exam: Positive intact; negative lesion, ulcers, dermal atrophy or rash Pulses Pulse: Yes Pedal pulses present: Extremities Extremities: No clubbing, No cyanosis, No edema Neuro Neurologic: Yes conversant, Yes no focal neuro deficits, Yes cooperative Lymph Lymphatic: No lymphadenopathy Psych Appearance: Positive grossly normal Mental Status: Positive mental status grossly normal Mood: Positive congruent mood Affect: Positive normal affect Coding Level of Care Code Off vis,new,level 4 Diagnoses Dyspnea on exertion R06.09 KAYCEE (obstructive sleep apnea) G47.33 Obesity E66.9 10/30/17 0754 <Electronically signed by Noel Dunlap DO> Date Noel Dunlap DO Cosigner Signature: Date (if applicable) CC: Rhett Dorsey MD CARDIOLOGY VISIT Observed: 09/12/2017 Status: F Source: [place] 6:07 PM [facility] [place] [facility] [address] [place] [address]. [address] [place] [address] OFFICE VISIT Date of Service: 09/12/17 MR#: [id number] Acct: [id number] Name: LAURYN BRUMFIELD Rep #: [id number] : 1950 Provider: RISHABH Wu Age/Sex: 67/F Location: [facility] [place] Status: Signed HPI HPI Details: LAURYN BRUMFIELD, is a 67 F who presents to the office today for a cardiovascular outpatient follow-up. She has a history of hypertension and diabetes. She also has a significant family history of coronary artery disease. Pt. denies chest, arm, jaw, or neck discomfort. Her exercise tolerance is stable. Pt. denies symptoms of lightheadedness, dizziness, near syncope, or syncopal episodes. Pt. denies worsening edema or claudication issues. Pt. denies orthopnea, PND, fever, chills, blood in urine, blood in stool, myalgia, or unexplainable fatigue. She states rare episodes of palpitations. She states that her SOB on exertion is unchanged. She notices this mainly with long distances and when walking up steps. 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 Accompanied by: none Is patient in pain?: No Allergies amlodipine Adverse Reaction (Severe, Verified 09/12/17 16:03) Unknown lisinopril Adverse Reaction (Severe, Verified 09/12/17 16:03) Unknown nickel Adverse Reaction (Severe, Verified 09/12/17 16:03) Unknown Medications armodafinil 250 mg tablet 250 mg PO QDAY tab 09/09/17 [History Confirmed 09/12/17] aspirin 81 mg tablet,delayed release 81 mg PO QDAY 09/09/17 [History Confirmed 09/12/17] calcium carbonate 600 mg (1,500 mg)-vitamin D3 200 unit tablet 1 tab PO QDAY 09/09/17 [History Confirmed 09/12/17] colestipol 1 gram tablet 1 g PO QDAY tab 09/09/17 [History Confirmed 09/12/17] fluoxetine 20 mg capsule See Label Instructions PO QDAY 09/09/17 [History Confirmed 09/12/17] gabapentin 100 mg capsule 100 mg PO TID cap 09/09/17 [History Confirmed 09/12/17] hydrochlorothiazide 25 mg tablet 25 mg PO QDAY 09/09/17 [History Confirmed 09/12/17] losartan 100 mg tablet 100 mg PO QDAY 09/09/17 [History Confirmed 09/12/17] orphenadrine citrate ER 100 mg tablet,extended release 100 mg PO QDAY tab 09/09/17 [History Confirmed 09/09/17] oxazepam 15 mg capsule 15 mg PO QHS PRN 09/09/17 [History Confirmed 09/09/17] trazodone 50 mg tablet 50 mg PO QHS tab 09/09/17 [History Confirmed 09/12/17] atenolol 50 mg tablet 50 mg PO BID tab 09/12/17 [History Confirmed 09/12/17] spironolactone 50 mg tablet 50 mg PO QDAY 09/12/17 [History Confirmed 09/12/17] Ejection fraction %: 55 to 59 PFSH Medical History Encounter for long-term current use of high risk medication (Chronic) Hypertension (Chronic) Hyperlipidemia (Chronic) Abnormal findings on diagnostic imaging of heart and coronary circulation (Chronic) Pericardial effusion (noninflammatory) (Chronic) Nonrheumatic mitral valve insufficiency (Chronic) Non-rheumatic tricuspid valve insufficiency (Chronic) Acoustic neuroma (Chronic) Benign hypertension (Chronic) Dyspnea on exertion (Acute) Surgical History H/O foot surgery (Resolved) Family History Brother CAD (coronary artery disease) Mother CVA (cerebral vascular accident) Social History Smoking Status: Former smoker alcohol intake: never substance use type: does not use caffeine: Yes Type: coffee Number of servings: 2 ROS Const Const: Negative for fatigue, weakness, body ache, fever(s) or chills ENT ENT: Negative for dizziness Cardio Chest Pain: No Palpitations: No Edema: None Muscle aches with walking: None Resp Respiratory: Positive for SOB with activity; negative for SOB at rest, SOB orthopnea\SOB lying down or paroxysmal nocturnal dyspnea GI GI: Negative nausea, black,tarry stools, bright, red blood in stools or vomiting blood/hematemesis : Negative for hematuria or frequent nighttime urination/ nocturia Musc Musc: Negative for muscle aches/ myalgia Skin Skin: Negative non-healing lesions or rash Neuro Neuro: Negative for weakness, dizziness, lightheadedness, near syncope, syncope or orthostatic symptoms Endo Endo: Negative for fatigue Allergy Allergy/Immunology: Negative for rash Cardiology Exam Const Appearance: cooperative, healthy appearing, comfortable and no acute distress Orientation: alert, awake and oriented x3 Head Head: normal to inspection Ears: hearing grossly normal bilaterally Nose: external nose normal Face and Sinus: face symmetric Mouth: oral mucosae normal Eyes General: appearance normal, both eyes and all related structures Eyelids: eyelids normal Neck Neck: no JVD and normal visual inspection Carotids: normal carotid upstroke Chest Chest inspection: normal inspection of the chest and normal respiratory effort; negative cough Auscultation: Bilateral: Clear to Auscultation Cardio Rate: regular rate Rhythm: regular rhythm Heart sounds: S1 normal and S2 normal; negative rub or gallop GI GI: normal to inspection Neuro General: alert, awake, oriented x3 and CN's II-XI intact bilaterally Skin Skin: no rashes or lesions noted Extremities Pulses: Normal: Right Posterior Tibial Pulse, Left Posterior Tibial Pulse, Right Radial Pulse, Left Radial Pulse Lower Extremity Edema: None: Bilateral Psych Psychological: normal affect Supplemental Info Stress test from March 2017 was a normal pharmacological myocardial perfusion stress test and showed preserved ejection fraction of 70%. Echocardiogram from March 2017 showed an estimated ejection fraction 55%, mild concentric LVH, mild mitral valve insufficiency, and mild tricuspid valve insufficiency. Assessment AND Plan 1. Dyspnea on exertion R06.09 Plan - ANGEL James Patient's most recent stress test was negative for stress- induced myocardial ischemia. Her most recent echocardiogram in March 2017 showed preserved ejection fraction 55% and mild valvular insufficiency. Patient does remain short of breath with exertion on long distances and when walking up steps. It is possible that her shortness of breath is due to her weight and inactivity. She will be referred to pulmonology for further input regarding dyspnea on exertion. We will see her back in approximately 3 months to evaluate symptoms and pulmonology's evaluation. Orders Referrals: 2. Essential hypertension I10 ANGEL Kelly Echocardiogram from March 2017 showed ejection fraction 55% and mild concentric LVH. Patient has been seen with primary care physician for this as well in which her atenolol was increased to twice daily. Her blood pressure is better controlled since this adjustment. She will continue follow-up with primary care physician for ongoing blood pressure checks. She will continue current medications. 3. Pure hypercholesterolemia E78.00; E78.0 Plan - ANGEL James She will continue with current cholesterol lowering medication. 4. Nonrheumatic tricuspid (valve) insufficiency I36.1 Plan - ANGEL James Echocardiogram from March 2017 showed mild tricuspid valve insufficiency. Patient does acknowledge some shortness of breath, but this is unlikely to be due to valvular disease. We will continue to monitor this through history, exam, and repeat echocardiogram. 5. Nonrheumatic mitral valve insufficiency I34.0 Plan - ANGEL James Echocardiogram from March 2017 showed mild atrial valve insufficiency. Patient does acknowledge some shortness of breath, but this is unlikely to be due to valvular disease. We will continue to monitor this through history, exam, and repeat echocardiogram. Plan Detail Additional Comments - ANGEL James Discussed the above patient with Dr. Dias in Dr. Aguilera's absence, he agrees with the plan of care. Thank you for allowing us to participate in the patients plan of care, if you have any questions please do not hesitate to call. This note was generated using a voice recognition system and there may be incorrect words, spelling or punctuation that were not noted when reviewing the office note prior to saving. Follow Up 3 Months ([facility]) 7 Months ([facility]ISTOLOG[facility]) Coding Level of Care Code Off vis,est,level 3 Diagnoses Dyspnea on exertion R06.09 Essential hypertension I10 Hypertension type: essential hypertension Pure hypercholesterolemia E78.00; E78.0 Hyperlipidemia type: pure hypercholesterolemia Nonrheumatic tricuspid (valve) insufficiency I36.1 Nonrheumatic mitral valve insufficiency I34.0 Coding Level of Care Code Off vis,est,level 3 Diagnoses Dyspnea on exertion R06.09 Essential hypertension I10 Hypertension type: essential hypertension Pure hypercholesterolemia E78.00; E78.0 Hyperlipidemia type: pure hypercholesterolemia Nonrheumatic tricuspid (valve) insufficiency I36.1 Nonrheumatic mitral valve insufficiency I34.0 09/12/17 1639 <Electronically signed by Kevin ORTIZ> Date Kevin Wu RAIL TRACTOR OPERATOR-C 09/12/17 1807<Electronically signed by Reed Dias MD> Cosigner Signature: Date (if applicable) Reed Dias MD CC: Rhett Dorsey MD PROGRESS Observed: 09/10/2017 Status: COMPLETED Source: [place] 4:02 PM [facility] REPOSITORY HNO ID: [id number] Author: Jo Ann Osuna LPN Service: (none) Author Type: (none) Type: Progress Notes Filed: 09/10/2017 4:40 PM Note Text: Manual Readin/68 Pulse: 72 Reason for blood pressure check - Last BP elevated. Blood pressure meds were adjusted on 08/18/17 AND BP still elevated at BP check 09/01/17. Pt then was instructed to continue with current medications AND have repeat BP check. Pt denies headaches, chest pain or dizziness. She does report sob with exertion. Pt denies tobacco use. Pt usually drinks 2 caffeine coffees in the mornings. She does not add salt when cooking. Pt Is alert AND oriented. Patient is: Taking medication as prescribed Yes Took medication today Yes If no, date medication last taken na Experiencing side effects No Pt has been identified by name and birthdate: Yes Allergies reviewed: Yes Latex allergy: no. Medication - prescribed and OTC reviewed and updated: Yes Do you need any prescription refills prior to your next visit: No Health Maintenance: Reviewed and up to date Pt instructed to continue current medications AND she will hear from PCP's office after review of blood pressure reading today. Jo Ann Osuna LPN CNNURSE Observed: 09/10/2017 Status: COMPLETED Source: [place] 3:45 PM [facility] REPOSITORY Nurse Visit (FAMPWS) LAURYN BRUMFIELD ([id number]) 1950 F Date Time Provider Department 09/10/17 3:45 PM OR NURSE GABRIEL During your visit today, we recorded the following information about you: Jo Ann Osuna LPN 09/10/2017 4:40 PM Signed Manual Readin/68 Pulse: 72 Reason for blood pressure check - Last BP elevated. Blood pressure meds were adjusted on 08/18/17 AND BP still elevated at BP check 09/01/17. Pt then was instructed to continue with current medications AND have repeat BP check. Pt denies headaches, chest pain or dizziness. She does report sob with exertion. Pt denies tobacco use. Pt usually drinks 2 caffeine coffees in the mornings. She does not add salt when cooking. Pt Is alert AND oriented. Patient is: Taking medication as prescribed Yes Took medication today Yes If no, date medication last taken na Experiencing side effects No Pt has been identified by name and birthdate: Yes Allergies reviewed: Yes Latex allergy: no. Medication - prescribed and OTC reviewed and updated: Yes Do you need any prescription refills prior to your next visit: No Health Maintenance: Reviewed and up to date Pt instructed to continue current medications AND she will hear from PCP's office after review of blood pressure reading today. Jo Ann Osuna LPN Referring Provider: SELF [[id number]] Allergies As of Date: 09/10/2017 Noted Allergy Reaction metal [Other] 01/01/2007 2 - Rash 9 - Itching NICKEL 01/01/2007 2 - Rash 9 - Itching AMLODIPINE 04/07/2012 7 - Swelling LISINOPRIL 11/25/2011 3 - Cough Date Reviewed: 09/10/2017 Reviewed by: Jo Ann Osuna LPN - Fully Assessed Reason for Visit: Blood Pressure Check [195] Visit Diagnosis:Hypertension, essential [I10] Prescriptions as of 09/10/2017 Sig: BENZONATATE 100 MG CAPSULE Take 1 capsule by mouth three* ATENOLOL 50 MG TABLET Take 1 tablet by mouth twice * HYDROCHLOROTHIAZIDE 25 MG TAB* TAKE 1 TABLET BY MOUTH ONCE D* NAPROXEN 500 MG TABLET TAKE 1 TABLET BY MOUTH TWICE * FLUOXETINE 20 MG CAPSULE TAKE 4 CAPSULES BY MOUTH ONCE* LOSARTAN 100 MG TABLET TAKE 1 TABLET BY MOUTH ONCE D* ONETOUCH VERIO STRIPS TEST BLOOD SUGAR(S) 2 TO 3 TI* TRAZODONE 50 MG TABLET Take 1 tablet by mouth daily * SPIRONOLACTONE 25 MG TABLET TAKE 1 TABLET BY MOUTH EVERY * METFORMIN 500 MG TABLET TAKE 1 TABLET BY MOUTH TWICE * ORPHENADRINE CITRATE ER 100 M* TAKE 1 TABLET BY MOUTH EVERY * PENCICLOVIR 1 % TOPICAL CREAM Apply 1 application to affect* ARMODAFINIL 250 MG TABLET Take 250 mg by mouth once milton* COLESTIPOL 1 GRAM TABLET TAKE 1 TABLET BY MOUTH ONCE D* LANCETS Test blood sugar(s) 2 to 3 ti* LANCETS 33 GAUGE USE INSTRUCTED GABAPENTIN 100 MG CAPSULE Take 100 mg by mouth three ti* DAILY MULTIVITAMIN TABLET Take one(1) tablet daily. ADULT LOW DOSE ASPIRIN 81 MG * Take one(1) tablet daily. CALCIUM 600 + D(3) 600 MG-125* Take one(1) tablet daily. Problem List As Of Date 09/10/2017 Noted Resolved BENIGN HYPERTENSION [I10] INVALID FOR* Myalgia and myositis, unspecified [[id number]] INVALID FOR*10/07/2016 Insomnia [G47.00] INVALID FOR* ESOPHAGEAL REFLUX [K21.9] INVALID FOR* Actinic keratosis [L57.0] INVALID FOR*07/04/2014 Inflamed seborrheic keratosis [L82.0] INVALID FOR*07/04/2014 Other chronic 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 radiation*INVALID FOR*07/04/2014 SOLAR LENGINES///DYSCHROMIA OTHER [L81.9] INVALID FOR*07/04/2014 Hyperlipidemia [E78.5] INVALID FOR* Sleep apnea [G47.30] INVALID FOR* Glucose intolerance (pre-diabetes) [R73.03] INVALID FOR*09/09/2013 Arthritis of knee, degenerative [M17.10] INVALID FOR*10/07/2016 Type 2 diabetes mellitus without complication (*INVALID FOR* Spinal stenosis of lumbar region [M48.061] INVALID FOR* Primary osteoarthritis of left knee [M17.12] INVALID FOR* Pain in left knee [M25.562] INVALID FOR*10/07/2016 Marital conflict [Z63.0] INVALID FOR*10/07/2016 Adjustment disorder with mixed anxiety and depr*INVALID FOR* Obesity (BMI 30.0-34.9) [E66.9] INVALID FOR* Inflammatory polyarthritis (HCC) [M06.4] INVALID FOR* More... Family history of ischemic heart disease [Z82.4*INVALID FOR* Obesity (BMI 35.0-39.9 without comorbidity) [E6*INVALID FOR* Aortic valve sclerosis [I35.8] INVALID FOR* Encounter Status:Closed by JO ANN OSUNA LPN on 09/10/17 PROGRESS Observed: 09/01/2017 Status: COMPLETED Source: [place] 1:22 PM [facility] REPOSITORY HNO ID: [id number] Author: Annalee Miller LPN Service: (none) Author Type: (none) Type: Progress Notes Filed: 09/01/2017 1:43 PM Note Text: Manual Readin/66 Pulse: 74 BP Yannick average: 147/61 P: 71 160/63 P71 #1 153/61 P71 #2 147/61 P71 #3 144/61 P71 #4 142/59 P70 #6 Reason for blood pressure check - Last BP elevated and Medication adjustment Patient is: Taking medication as prescribed Yes Took medication today Yes If no, date medication last taken N/A Experiencing side effects No BP was elevated at last appt 08/18/17. Atenolol was increased to 50mg twice daily. Tolerating medication change well; does report missing some doses. Denies any chest pain, shortness of breath, dizziness, or headaches. Daily caffeine use. Past personal history of tobacco use; no current exposure. Alert and oriented. Pt has been identified by name and birthdate: Yes Allergies reviewed: Yes Latex allergy: no. Medication - prescribed and OTC reviewed and updated: Yes Do you need any prescription refills prior to your next visit: No Health Maintenance: Reviewed and not up to date and provider notified Patient advised that she would be contacted after review by PCP. Annalee Miller LPN CNNURSE Observed: 09/01/2017 Status: COMPLETED Source: [place] 1:15 PM [facility] REPOSITORY Nurse Visit (FAMPWS) LAURYN BRUMFIELD ([id number]) 1950 F Date Time Provider Department 09/01/17 1:15 PM OR NURSE GABRIEL During your visit today, we recorded the following information about you: Pulse Blood pressure 71/minute 147/61 Annalee Miller LPN 09/01/2017 1:43 PM Signed Manual Readin/66 Pulse: 74 BP Yannick average: 147/61 P: 71 160/63 P71 #1 153/61 P71 #2 147/61 P71 #3 144/61 P71 #4 142/59 P70 #6 Reason for blood pressure check - Last BP elevated and Medication adjustment Patient is: Taking medication as prescribed Yes Took medication today Yes If no, date medication last taken N/A Experiencing side effects No BP was elevated at last appt 08/18/17. Atenolol was increased to 50mg twice daily. Tolerating medication change well; does report missing some doses. Denies any chest pain, shortness of breath, dizziness, or headaches. Daily caffeine use. Past personal history of tobacco use; no current exposure. Alert and oriented. Pt has been identified by name and birthdate: Yes Allergies reviewed: Yes Latex allergy: no. Medication - prescribed and OTC reviewed and updated: Yes Do you need any prescription refills prior to your next visit: No Health Maintenance: Reviewed and not up to date and provider notified Patient advised that she would be contacted after review by PCP. Annalee Miller LPN Referring Provider: RHETT DORSEY [[id number]] Allergies As of Date: 09/01/2017 Noted Allergy Reaction metal [Other] 01/01/2007 2 - Rash 9 - Itching NICKEL 01/01/2007 2 - Rash 9 - Itching AMLODIPINE 04/07/2012 7 - Swelling LISINOPRIL 11/25/2011 3 - Cough Date Reviewed: 08/18/2017 Reviewed by: Yaz Galindo Ma - Fully Assessed Reason for Visit: Blood Pressure Check [195] Primary Visit Diagnosis:Essential hypertension, benign [I10] Prescriptions as of 09/01/2017 Sig: BENZONATATE 100 MG CAPSULE Take 1 capsule by mouth three* ATENOLOL 50 MG TABLET Take 1 tablet by mouth twice * HYDROCHLOROTHIAZIDE 25 MG TAB* TAKE 1 TABLET BY MOUTH ONCE D* NAPROXEN 500 MG TABLET TAKE 1 TABLET BY MOUTH TWICE * FLUOXETINE 20 MG CAPSULE TAKE 4 CAPSULES BY MOUTH ONCE* LOSARTAN 100 MG TABLET TAKE 1 TABLET BY MOUTH ONCE D* ONETOUCH VERIO STRIPS TEST BLOOD SUGAR(S) 2 TO 3 TI* TRAZODONE 50 MG TABLET Take 1 tablet by mouth daily * SPIRONOLACTONE 25 MG TABLET TAKE 1 TABLET BY MOUTH EVERY * METFORMIN 500 MG TABLET TAKE 1 TABLET BY MOUTH TWICE * ORPHENADRINE CITRATE ER 100 M* TAKE 1 TABLET BY MOUTH EVERY * PENCICLOVIR 1 % TOPICAL CREAM Apply 1 application to affect* ARMODAFINIL 250 MG TABLET Take 250 mg by mouth once mil[place]* COLESTIPOL 1 GRAM TABLET TAKE 1 TABLET BY MOUTH ONCE D* LANCETS Test blood sugar(s) 2 to 3 ti* LANCETS 33 GAUGE USE INSTRUCTED GABAPENTIN 100 MG CAPSULE Take 100 mg by mouth three ti* DAILY MULTIVITAMIN TABLET Take one(1) tablet daily. ADULT LOW DOSE ASPIRIN 81 MG * Take one(1) tablet daily. CALCIUM 600 + D(3) 600 MG-125* Take one(1) tablet daily. Problem List As Of Date 09/01/2017 Noted Resolved BENIGN HYPERTENSION [I10] INVALID FOR* Myalgia and myositis, unspecified [[id number]] INVALID FOR*10/07/2016 Insomnia [G47.00] INVALID FOR* ESOPHAGEAL REFLUX [K21.9] INVALID FOR* Actinic keratosis [L57.0] INVALID FOR*07/04/2014 Inflamed seborrheic keratosis [L82.0] INVALID FOR*07/04/2014 Other chronic 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 radiation*INVALID FOR*07/04/2014 SOLAR LENGINES///DYSCHROMIA OTHER [L81.9] INVALID FOR*07/04/2014 Hyperlipidemia [E78.5] INVALID FOR* Sleep apnea [G47.30] INVALID FOR* Glucose intolerance (pre-diabetes) [R73.03] INVALID FOR*09/09/2013 Arthritis of knee, degenerative [M17.10] INVALID FOR*10/07/2016 Type 2 diabetes mellitus without complication (*INVALID FOR* Spinal stenosis of lumbar region [M48.061] INVALID FOR* Primary osteoarthritis of left knee [M17.12] INVALID FOR* Pain in left knee [M25.562] INVALID FOR*10/07/2016 Marital conflict [Z63.0] INVALID FOR*10/07/2016 Adjustment disorder with mixed anxiety and depr*INVALID FOR* Obesity (BMI 30.0-34.9) [E66.9] INVALID FOR* Inflammatory polyarthritis (HCC) [M06.4] INVALID FOR* More... Family history of ischemic heart disease [Z82.4*INVALID FOR* Obesity (BMI 35.0-39.9 without comorbidity) [E6*INVALID FOR* Aortic valve sclerosis [I35.8] INVALID FOR* Encounter Status:Closed by ANNALEE MILLER LPN on 09/01/17 XR CHEST 2V FRONTAL/LAT Observed: 08/18/2017 Status: F Source: [place] 5:26 PM [facility] REPOSITORY * * *Final Report* * * DATE OF EXAM: Aug 18 2017 5:26PM WOX [id number] - XR CHEST 2V FRONTAL/LAT / PROCEDURE REASON: multiple diagnoses * * * * Physician Interpretation * * * * EXAMINATION: CHEST RADIOGRAPH (2 VIEW FRONTAL and LATERAL) Clinical History: Chronic sinusitis, unspecified Other specified bacterial agents as the cause of diseases classified elsewhere Hemoptysis MQ: XC2_5 Comparison: Chest x-ray on 10/07/2016 RESULT: Lines, tubes, and devices: None. Lungs and pleura: No consolidation. No lung mass. No pleural effusion. Cardiomediastinal silhouette: Borderline enlargement of the cardiac silhouette is noted. Other: The spine shows degenerative changes. IMPRESSION: Overall findings unchanged. Rotary Engraver: MARY Transcribe Date/Time: Aug 18 2017 7:15P Dictated by : MYRA JACQUES MD This examination was interpreted and the report reviewed and electronically signed by: MYRA JACQUES MD on Aug 18 2017 7:16PM EST [id number] PROGRESS Observed: 08/18/2017 Status: COMPLETED Source: [place] 5:17 PM [facility] REPOSITORY HNO ID: [id number] Author: Sangita () Justen Mena Service: (none) Author Type: Map Compiler Type: Progress Notes Filed: 08/18/2017 5:22 PM Note Text: Radiology Service Progress Note PATIENT NAME: Lauryn Brumfield DATE OF SERVICE: August 18, 2017 TIME: 5:17 PM PATIENT IDENTITY VERIFICATION COMPLETED USING TWO (2) METHODS: Patient confirmed name verbally and Date of . PATIENT GENDER DATA: Female. status: : No status: NO. PATIENT RELEVANT IMPLANT DATA REVIEWED: Not Applicable RADIOLOGY DEPARTMENT: General X-ray: Exam(s) Completed: Chest X-Ray PERIPHERAL IV DATA: Not applicable SIGNED BY: RT Viridiana August 18, 2017 5:17 PM PROGRESS Observed: 08/18/2017 Status: COMPLETED Source: [place] 4:35 PM [facility] [place] REPOSITORY [facility] ID: [id number] Author: Rhett Dorsey Service: (none) Author Type: Physician Type: Progress Notes Filed: 08/18/2017 6:25 PM Note Text: Patient presents with: URI HPI: Patient presents today for office visit for follow up. Nursing Notes: Yaz Galindo Ma 08/18/2017 4:21 PM Signed DURATION OF SYMPTOMS: Began 3 weeks ago ONSET OF SYMPTOMS: Gradual FEVER: Not checked BODYACHES: No TIREDNESS: No HEADACHE: No EAR SYMPTOMS: No STUFFY NOSE: Yes POST NASAL DRIP: yes SNEEZING: Yes SORE THROAT: Yes, uvula has been swollen. Pt though it was caused by CPAP, but then developed cold symptoms. Pt changed all her tubing. COUGH: Yes, dry CHEST DISCOMFORT: No SHORTNESS OF BREATH: a little WHEEZING: No SPUTUM PRODUCTION: Blood streaked OVER THE COUNTER MEDICATION PATIENT IS TAKING: No OTC use Has been coughing some. Changed cpap. Has some blood streaking to the mucous. Getting drainage. No nausea or vomiting or diarrhea. HYPERTENSION: bp is up still. Did not follow up. Last echo showed a normal EF. No chest pain . No edema. Due for labs in October. MEDICATIONS: Current Outpatient Prescriptions: hydroCHLOROthiazide (HYDRODIURIL, ESIDRIX) 25 mg tablet TAKE 1 TABLET BY MOUTH ONCE DAILY. naproxen (NAPROSYN) 500 mg tablet TAKE 1 TABLET BY MOUTH TWICE A DAY WITH MEALS NEEDED FLUoxetine (PROZAC) 20 mg capsule TAKE 4 CAPSULES BY MOUTH ONCE DAILY. losartan (COZAAR) 100 mg tablet TAKE 1 TABLET BY MOUTH ONCE DAILY. traZODone (DESYREL) 50 mg tablet Take 1 tablet by mouth daily at bedtime. spironolactone (ALDACTONE) 25 mg tablet TAKE 1 TABLET BY MOUTH EVERY DAY oxazepam (SERAX) 15 mg capsule one(1) tablet daily at bedtime as needed for sleep. metFORMIN (GLUCOPHAGE) 500 mg tablet TAKE 1 TABLET BY MOUTH TWICE DAILY WITH MEALS. orphenadrine ER (NORFLEX) 100 mg tablet TAKE 1 TABLET BY MOUTH EVERY DAY atenolol (TENORMIN) 50 mg tablet Take 1 tablet by mouth once daily. penciclovir (DENAVIR) 1 % cream Apply 1 application to affected area twice daily as needed. armodafinil (NUVIGIL) 250 mg tab Take 250 mg by mouth once daily. colestipol (COLESTID) 1 gram tablet TAKE 1 TABLET BY MOUTH ONCE DAILY. gabapentin (NEURONTIN) 100 mg capsule Take 100 mg by mouth three times daily. multivitamins(DAILY MULTIVITAMIN TAB) Take one(1) tablet daily. aspirin(ADULT LOW DOSE ASPIRIN 81 MG TAB, DELAYED RELEASE) Take one(1) tablet daily. CALCIUM 600 + D 600 MG-125 UNIT TAB Take one(1) tablet daily. ONETOUCH VERIO test strip TEST BLOOD SUGAR(S) 2 TO 3 TIMES DAILY. DX: TYPE 2 DM - CONTROLLED E11.9 INSULIN: NO Lancets lancets Test blood sugar(s) 2 to 3 times daily. Dx: Type 2 DM - Controlled E11.9 Insulin: No. Uses One Touch Verio Meter. lancets (ONE TOUCH [employer]) 33 gauge misc USE INSTRUCTED No current facility-administered medications for this visit. ALLERGIES: ALLERGIES Allergen Reactions - Nickel Rash, Itching - Metal [Other] Rash, Itching - Amlodipine Swelling - Lisinopril Cough PAST MEDICAL HISTORY Diagnosis Date - Cardiomyopathy in other diseases classified elsewhere echo 2008-normal EF - Complication of anesthesia - Diverticulosis of colon (without mention of hemorrhage) - Esophageal reflux Gastroesophageal reflux - Internal hemorrhoids without mention of complication - Mental disorder - Myalgia and myositis, unspecified Fibromyalgia (myalgia and myositis) - PMH - PAST MEDICAL HISTORY OF pre diabetic - Sleep apnea - Unspecified essential hypertension Essential hypertension PAST SURGICAL HISTORY Procedure Laterality Date - COLONOSCOP W/ OR W/O [facility] SPEC 1999 Colonoscopy-due 2009 - COLONOSCOP W/ OR W/O [facility] SPEC 01/29/10 - DENTAL SURGERY PROCEDURE 04/2010 laser top right teeth - EGD W/O OR W/BRUSH/WASH 05/2003 EGD - 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 - Stroke Mother - Alzheimer's Disease Father - Osteoporosis Sister - Thyroid Daughter - Cancer Brother kidney ca./renal cell - Coronary Artery Disease Brother OR, has a bad disc is the same as above - Cancer Maternal Grandmother liver ca. 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 Hasn't smoked since she was 48yrs. Alcohol use: No Drug use: No Sexual activity: No Reviewed current medications, allergies, past medical history, surgical history, family history and social history today. REVIEW OF SYSTEMS All other reviewed and negative other than HPI. HEALTH MAINTENANCE: Reviewed health maintenance issues today and recommended the following in detail. TETANUS due on 01/01/2017 VITALS: BP 178/70 Pulse 72 Temp 37 ?C (98.6 ?F) (Tympanic) Resp 18 Last 4 Encounter Wt Readings: Date: Wt: 05/02/2017 100.2 kg (221 lb) 01/21/2017 101.2 kg (223 lb) 01/13/2017 99.8 kg (220 lb) 11/22/2016 99.2 kg (218 lb 12.8 oz) PHYSICAL EXAMINATION: General appearance: Well appearing, alert, in no acute distress, well-hydrated, well nourished. Skin: Skin color, texture, turgor normal, no suspicious rashes or lesions Head: Normocephalic, no masses, lesions, tenderness or abnormalities Eyes: Anicteric sclera. Pupils are equally round and reactive to light. Extraocular movements are intact. Ears: External ears normal, canals clear Nose/Sinuses: Nares normal, septum midline, mucosa normal, no drainage or sinus tenderness Oropharynx: uvula slightly red. Posterior pharyngeal drainage. Neck: supple no lymphadenopathy Lungs: Lungs clear to auscultation. No wheezing, rhonchi, rales Heart: RRR without murmur, gallop, or rubs. No ectopy Abdomen: Normal abdominal exam, Abdomen soft, non-tender. Bowel sounds normal. No masses, organomegaly Extremities: No deformities, edema, skin discoloration, clubbing or cyanosis. Good capillary refill. ASSESSMENT/PLAN: 1. Bacterial sinusitis - ICD9: 473.9, 041.9, ICD10: J32.9, B96.89 (primary diagnosis) - Supportive care with plenty of fluids, rest, and analgesia prn. - Follow up in one week if symptoms persist or worsen. - XR CHEST 2V FRONTAL/LAT - AMOXICILLIN 875 MG-POTASSIUM CLAVULANATE 125 MG TABLET 2. Insomnia, unspecified type - ICD9: 780.52, ICD10: G47.00 - refilled meds. oarrs done. - OXAZEPAM 15 MG CAPSULE 3. Inflammatory polyarthritis (HCC) - ICD9: 714.9, ICD10: M06.4 - stable. See rheum if worsens. 4. Essential hypertension, benign - ICD9: 401.1, ICD10: I10 - suboptimal control - Increase atenolol (Tenormin) - Recommended regular aerobic exercise. - Recommend home blood pressure monitoring, to bring results in on next visit - Goal of BP <140/90 - ATENOLOL 50 MG TABLET 5. Sleep apnea, unspecified type - ICD9: 780.57, ICD10: G47.30 - stable. Harman if worsens. 6. Hemoptysis - ICD9: 786.30, ICD10: R04.2 - probably secondary to sinusitis. Call if any issues. - XR CHEST 2V FRONTAL/LAT Rhett Dorsey MD CNOV Observed: 08/18/2017 Status: COMPLETED Source: [place] 4:00 PM [facility] REPOSITORY Office Visit (FAMPWS) LAURYN BRUMFIELD ([id number]) 1950 F Date Time Provider Department 08/18/17 4:00 PM SUNITA, RHETT J FAMPWS During your visit today, we recorded the following information about you: Temperature Pulse Respiration Blood pressure 98.6 degrees 72/minute 18/minute 178/70 Yaz Galindo Ma 08/18/2017 4:21 PM Signed DURATION OF SYMPTOMS: Began 3 weeks ago ONSET OF SYMPTOMS: Gradual FEVER: Not checked BODYACHES: No TIREDNESS: No HEADACHE: No EAR SYMPTOMS: No STUFFY NOSE: Yes POST NASAL DRIP: yes SNEEZING: Yes SORE THROAT: Yes, uvula has been swollen. Pt though it was caused by CPAP, but then developed cold symptoms. Pt changed all her tubing. COUGH: Yes, dry CHEST DISCOMFORT: No SHORTNESS OF BREATH: a little WHEEZING: No SPUTUM PRODUCTION: Blood streaked OVER THE COUNTER MEDICATION PATIENT IS TAKING: No OTC use Rhett Dorsey MD 08/18/2017 6:25 PM Signed Patient presents with: URI HPI: Patient presents today for office visit for follow up. Nursing Notes: Yaz Galindo Ma 08/18/2017 4:21 PM Signed DURATION OF SYMPTOMS: Began 3 weeks ago ONSET OF SYMPTOMS: Gradual FEVER: Not checked BODYACHES: No TIREDNESS: No HEADACHE: No EAR SYMPTOMS: No STUFFY NOSE: Yes POST NASAL DRIP: yes SNEEZING: Yes SORE THROAT: Yes, uvula has been swollen. Pt though it was caused by CPAP, but then developed cold symptoms. Pt changed all her tubing. COUGH: Yes, dry CHEST DISCOMFORT: No SHORTNESS OF BREATH: a little WHEEZING: No SPUTUM PRODUCTION: Blood streaked OVER THE COUNTER MEDICATION PATIENT IS TAKING: No OTC use Has been coughing some. Changed cpap. Has some blood streaking to the mucous. Getting drainage. No nausea or vomiting or diarrhea. HYPERTENSION: bp is up still. Did not follow up. Last echo showed a normal EF. No chest pain . No edema. Due for labs in October. MEDICATIONS: Current Outpatient Prescriptions: hydroCHLOROthiazide (HYDRODIURIL, ESIDRIX) 25 mg tablet TAKE 1 TABLET BY MOUTH ONCE DAILY. naproxen (NAPROSYN) 500 mg tablet TAKE 1 TABLET BY MOUTH TWICE A DAY WITH MEALS NEEDED FLUoxetine (PROZAC) 20 mg capsule TAKE 4 CAPSULES BY MOUTH ONCE DAILY. losartan (COZAAR) 100 mg tablet TAKE 1 TABLET BY MOUTH ONCE DAILY. traZODone (DESYREL) 50 mg tablet Take 1 tablet by mouth daily at bedtime. spironolactone (ALDACTONE) 25 mg tablet TAKE 1 TABLET BY MOUTH EVERY DAY oxazepam (SERAX) 15 mg capsule one(1) tablet daily at bedtime as needed for sleep. metFORMIN (GLUCOPHAGE) 500 mg tablet TAKE 1 TABLET BY MOUTH TWICE DAILY WITH MEALS. orphenadrine ER (NORFLEX) 100 mg tablet TAKE 1 TABLET BY MOUTH EVERY DAY atenolol (TENORMIN) 50 mg tablet Take 1 tablet by mouth once daily. penciclovir (DENAVIR) 1 % cream Apply 1 application to affected area twice daily as needed. armodafinil (NUVIGIL) 250 mg tab Take 250 mg by mouth once daily. colestipol (COLESTID) 1 gram tablet TAKE 1 TABLET BY MOUTH ONCE DAILY. gabapentin (NEURONTIN) 100 mg capsule Take 100 mg by mouth three times daily. multivitamins(DAILY MULTIVITAMIN TAB) Take one(1) tablet daily. aspirin(ADULT LOW DOSE ASPIRIN 81 MG TAB, DELAYED RELEASE) Take one(1) tablet daily. CALCIUM 600 + D 600 MG-125 UNIT TAB Take one(1) tablet daily. ONETOUCH VERIO test strip TEST BLOOD SUGAR(S) 2 TO 3 TIMES DAILY. DX: TYPE 2 DM - CONTROLLED E11.9 INSULIN: NO Lancets lancets Test blood sugar(s) 2 to 3 times daily. Dx: Type 2 DM - Controlled E11.9 Insulin: No. Uses One Touch Verio Meter. lancets (ONE TOUCH DELICA) 33 gauge misc USE INSTRUCTED No current facility-administered medications for this visit. ALLERGIES: ALLERGIES Allergen Reactions - Nickel Rash, Itching - Metal [Other] Rash, Itching - Amlodipine Swelling - Lisinopril Cough PAST MEDICAL HISTORY Diagnosis Date - Cardiomyopathy in other diseases classified elsewhere echo 2008-normal EF - Complication of anesthesia - Diverticulosis of colon (without mention of hemorrhage) - Esophageal reflux Gastroesophageal reflux - Internal hemorrhoids without mention of complication - Mental disorder - Myalgia and myositis, unspecified Fibromyalgia (myalgia and myositis) - PMH - PAST MEDICAL HISTORY OF pre diabetic - Sleep apnea - Unspecified essential hypertension Essential hypertension PAST SURGICAL HISTORY Procedure Laterality Date - COLONOSCOP W/ OR W/O [facility] SPEC 1999 Colonoscopy-due 2009 - COLONOSCOP W/ OR W/O [facility] SPEC 01/29/10 - DENTAL SURGERY PROCEDURE 04/2010 laser top right teeth - EGD W/O OR W/BRUSH/WASH 05/2003 EGD - 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 - Stroke Mother - Alzheimer's Disease Father - Osteoporosis Sister - Thyroid Daughter - Cancer Brother kidney ca./renal cell - Coronary Artery Disease Brother OR, has a bad disc is the same as above - Cancer Maternal Grandmother liver ca. 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 Hasn't smoked since she was 48yrs. Alcohol use: No Drug use: No Sexual activity: No Reviewed current medications, allergies, past medical history, surgical history, family history and social history today. REVIEW OF SYSTEMS All other reviewed and negative other than HPI. HEALTH MAINTENANCE: Reviewed health maintenance issues today and recommended the following in detail. TETANUS due on 01/01/2017 VITALS: BP 178/70 Pulse 72 Temp 37 ?C (98.6 ?F) (Tympanic) Resp 18 Last 4 Encounter Wt Readings: Date: Wt: 05/02/2017 100.2 kg (221 lb) 01/21/2017 101.2 kg (223 lb) 01/13/2017 99.8 kg (220 lb) 11/22/2016 99.2 kg (218 lb 12.8 oz) PHYSICAL EXAMINATION: General appearance: Well appearing, alert, in no acute distress, well-hydrated, well nourished. Skin: Skin color, texture, turgor normal, no suspicious rashes or lesions Head: Normocephalic, no masses, lesions, tenderness or abnormalities Eyes: Anicteric sclera. Pupils are equally round and reactive to light. Extraocular movements are intact. Ears: External ears normal, canals clear Nose/Sinuses: Nares normal, septum midline, mucosa normal, no drainage or sinus tenderness Oropharynx: uvula slightly red. Posterior pharyngeal drainage. Neck: supple no lymphadenopathy Lungs: Lungs clear to auscultation. No wheezing, rhonchi, rales Heart: RRR without murmur, gallop, or rubs. No ectopy Abdomen: Normal abdominal exam, Abdomen soft, non-tender. Bowel sounds normal. No masses, organomegaly Extremities: No deformities, edema, skin discoloration, clubbing or cyanosis. Good capillary refill. ASSESSMENT/PLAN: 1. Bacterial sinusitis - ICD9: 473.9, 041.9, ICD10: J32.9, B96.89 (primary diagnosis) - Supportive care with plenty of fluids, rest, and analgesia prn. - Follow up in one week if symptoms persist or worsen. - XR CHEST 2V FRONTAL/LAT - AMOXICILLIN 875 MG-POTASSIUM CLAVULANATE 125 MG TABLET 2. Insomnia, unspecified type - ICD9: 780.52, ICD10: G47.00 - refilled meds. oarrs done. - OXAZEPAM 15 MG CAPSULE 3. Inflammatory polyarthritis (HCC) - ICD9: 714.9, ICD10: M06.4 - stable. See rheum if worsens. 4. Essential hypertension, benign - ICD9: 401.1, ICD10: I10 - suboptimal control - Increase atenolol (Tenormin) - Recommended regular aerobic exercise. - Recommend home blood pressure monitoring, to bring results in on next visit - Goal of BP ANDlt;140/90 - ATENOLOL 50 MG TABLET 5. Sleep apnea, unspecified type - ICD9: 780.57, ICD10: G47.30 - stable. Harman if worsens. 6. Hemoptysis - ICD9: 786.30, ICD10: R04.2 - probably secondary to sinusitis. Call if any issues. - XR CHEST 2V FRONTAL/LAT Rhett Dorsey MD Referring Provider: SELF [[id number]] Allergies As of Date: 08/18/2017 Noted Allergy Reaction NICKEL 01/01/2007 2 - Rash 9 - Itching metal [Other] 01/01/2007 2 - Rash 9 - Itching AMLODIPINE 04/07/2012 7 - Swelling LISINOPRIL 11/25/2011 3 - Cough Date Reviewed: 08/18/2017 Reviewed by: Yaz Galindo Ma - Fully Assessed Reason for Visit: URI [115] Primary Visit Diagnosis:Bacterial sinusitis [J32.9, B96.89] Other Visit Diagnoses:Insomnia, unspecified type [G47.00] Inflammatory polyarthritis (HCC) [M06.4] Essential hypertension, benign [I10] Sleep apnea, unspecified type [G47.30] Hemoptysis [R04.2] Order(s):oxazepam (SERAX) 15 mg capsuleone(1) tablet daily at bedtime as needed for sleep.Disp: 30 capsuleRfl: 1 XR CHEST 2V FRONTAL/LAT [[id number]] Order #: [id number] FUTURE amoxicillin-clavulanic acid (AUGMENTIN) 875-125 mg per tabletTake 1 tablet by mouth twice daily for 10 days.Disp: 20 tabletRfl: 0 atenolol (TENORMIN) 50 mg tabletTake 1 tablet by mouth twice daily.Disp: 60 tabletRfl: 3 Prescriptions as of 08/18/2017 Sig: OXAZEPAM 15 MG CAPSULE one(1) tablet daily at bedtim* ATENOLOL 50 MG TABLET Take 1 tablet by mouth twice * HYDROCHLOROTHIAZIDE 25 MG TAB* TAKE 1 TABLET BY MOUTH ONCE D* NAPROXEN 500 MG TABLET TAKE 1 TABLET BY MOUTH TWICE * FLUOXETINE 20 MG CAPSULE TAKE 4 CAPSULES BY MOUTH ONCE* LOSARTAN 100 MG TABLET TAKE 1 TABLET BY MOUTH ONCE D* TRAZODONE 50 MG TABLET Take 1 tablet by mouth daily * SPIRONOLACTONE 25 MG TABLET TAKE 1 TABLET BY MOUTH EVERY * METFORMIN 500 MG TABLET TAKE 1 TABLET BY MOUTH TWICE * ORPHENADRINE CITRATE ER 100 M* TAKE 1 TABLET BY MOUTH EVERY * PENCICLOVIR 1 % TOPICAL CREAM Apply 1 application to affect* ARMODAFINIL 250 MG TABLET Take 250 mg by mouth once milton* COLESTIPOL 1 GRAM TABLET TAKE 1 TABLET BY MOUTH ONCE D* GABAPENTIN 100 MG CAPSULE Take 100 mg by mouth three ti* DAILY MULTIVITAMIN TABLET Take one(1) tablet daily. ADULT LOW DOSE ASPIRIN 81 MG * Take one(1) tablet daily. CALCIUM 600 + D(3) 600 MG-125* Take one(1) tablet daily. AMOXICILLIN 875 MG-POTASSIUM * Take 1 tablet by mouth twice * ONETOUCH VERIO STRIPS TEST BLOOD SUGAR(S) 2 TO 3 TI* LANCETS Test blood sugar(s) 2 to 3 ti* LANCETS 33 GAUGE USE INSTRUCTED Problem List As Of Date 08/18/2017 Noted Resolved BENIGN HYPERTENSION [I10] INVALID FOR* Myalgia and myositis, unspecified [[id number]] INVALID FOR*10/07/2016 Insomnia [G47.00] INVALID FOR* ESOPHAGEAL REFLUX [K21.9] INVALID FOR* Actinic keratosis [L57.0] INVALID FOR*07/04/2014 Inflamed seborrheic keratosis [L82.0] INVALID FOR*07/04/2014 Other chronic 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 radiation*INVALID FOR*07/04/2014 SOLAR LENGINES///DYSCHROMIA OTHER [L81.9] INVALID FOR*07/04/2014 Hyperlipidemia [E78.5] INVALID FOR* Sleep apnea [G47.30] INVALID FOR* Glucose intolerance (pre-diabetes) [R73.03] INVALID FOR*09/09/2013 Arthritis of knee, degenerative [M17.10] INVALID FOR*10/07/2016 Type 2 diabetes mellitus without complication (*INVALID FOR* Spinal stenosis of lumbar region [M48.061] INVALID FOR* Primary osteoarthritis of left knee [M17.12] INVALID FOR* Pain in left knee [M25.562] INVALID FOR*10/07/2016 Marital conflict [Z63.0] INVALID FOR*10/07/2016 Adjustment disorder with mixed anxiety and depr*INVALID FOR* Obesity (BMI 30.0-34.9) [E66.9] INVALID FOR* Inflammatory polyarthritis (HCC) [M06.4] INVALID FOR* More... Family history of ischemic heart disease [Z82.4*INVALID FOR* Obesity (BMI 35.0-39.9 without comorbidity) [E6*INVALID FOR* Aortic valve sclerosis [I35.8] INVALID FOR* Visit Notes: >> Yaz Galindo Ma Mon Aug 18, 2017 4:11 PM Status: Signed DURATION OF SYMPTOMS: Began 3 weeks ago ONSET OF SYMPTOMS: Gradual FEVER: Not checked BODYACHES: No TIREDNESS: No HEADACHE: No EAR SYMPTOMS: No STUFFY NOSE: Yes POST NASAL DRIP: yes SNEEZING: Yes SORE THROAT: Yes, uvula has been swollen. Pt though it was caused by CPAP, but then developed cold symptoms. Pt changed all her tubing. COUGH: Yes, dry CHEST DISCOMFORT: No SHORTNESS OF BREATH: a little WHEEZING: No SPUTUM PRODUCTION: Blood streaked OVER THE COUNTER MEDICATION PATIENT IS TAKING: No OTC use Prescriptions ordered this encounter Disp Refills Start End OXAZEPAM 15 MG CAPSULE 30 c* 1 08/18/2017 08/18/2017 Class: Print RX Sig: one(1) tablet daily at bedtime as needed for sleep. AMOXICILLIN 875 MG-POTASSIUM CLAVULA* 20 t* 0 08/18/2017 08/28/2017 Route: ORAL Sig: Take 1 tablet by mouth twice daily for 10 days. ATENOLOL 50 MG TABLET 60 t* 3 08/18/2017 Route: ORAL Sig: Take 1 tablet by mouth twice daily. Medications Discontinued During This Encounter oxazepam (SERAX) 15 mg capsule 30 c* 0 10/29/2016 08/18/2017 Class: Print RX Sig: one(1) tablet daily at bedtime as needed for sleep. Disc: Reason for discontinue is not on file. atenolol (TENORMIN) 50 mg tablet 90 t* 3 10/10/2016 08/18/2017 Route: ORAL Sig: Take 1 tablet by mouth once daily. Disc: Reason for discontinue is not on file. Disposition: Return if symptoms worsen or fail to improve. Follow-up and Disposition History Recorded Encounter Status:Closed by RHETT DORSEY MD on 08/18/17 OBSOLETE Observed: 05/11/2017 Status: COMPLETED Source: [place] 12:00 AM [facility] REPOSITORY Refill (FAMPWS) LAURYN BRUMFIELD ([id number]) 1950 F Date Time Provider Department 05/11/17 RHETT DORSEY During your visit today, we recorded the following information about you: Allergies As of Date: 05/11/2017 Noted Allergy Reaction NICKEL 01/01/2007 2 - Rash 9 - Itching metal [Other] 01/01/2007 2 - Rash 9 - Itching AMLODIPINE 04/07/2012 7 - Swelling LISINOPRIL 11/25/2011 3 - Cough Date Reviewed: 05/07/2017 Reviewed by: Fany Martel Ma - Fully Assessed Reason for Visit: Refill Request [94] Order(s):ONETOUCH VERIO test stripTEST BLOOD SUGAR(S) 2 TO 3 TIMES DAILY. DX: TYPE 2 DM - CONTROLLED E11.9 INSULIN: NODisp: 100 StripRfl: 11 Prescriptions as of 05/11/2017 Sig: ONETOUCH VERIO STRIPS TEST BLOOD SUGAR(S) 2 TO 3 TI* FLUOXETINE 20 MG CAPSULE TAKE 4 CAPSULES BY MOUTH ONCE* NAPROXEN 500 MG TABLET Take 1 tablet by mouth twice * TRAZODONE 50 MG TABLET Take 1 tablet by mouth daily * SPIRONOLACTONE 25 MG TABLET TAKE 1 TABLET BY MOUTH EVERY * OXAZEPAM 15 MG CAPSULE one(1) tablet daily at bedtim* METFORMIN 500 MG TABLET TAKE 1 TABLET BY MOUTH TWICE * ORPHENADRINE CITRATE ER 100 M* TAKE 1 TABLET BY MOUTH EVERY * ATENOLOL 50 MG TABLET Take 1 tablet by mouth once d* PENCICLOVIR 1 % TOPICAL CREAM Apply 1 application to affect* HYDROCHLOROTHIAZIDE 25 MG TAB* Take 1 tablet by mouth once d* LOSARTAN 100 MG TABLET TAKE 1 TABLET BY MOUTH ONCE D* ARMODAFINIL 250 MG TABLET Take 250 mg by mouth once milton* COLESTIPOL 1 GRAM TABLET TAKE 1 TABLET BY MOUTH ONCE D* LANCETS Test blood sugar(s) 2 to 3 ti* LANCETS 33 GAUGE USE INSTRUCTED GABAPENTIN 100 MG CAPSULE Take 100 mg by mouth three ti* DAILY MULTIVITAMIN TABLET Take one(1) tablet daily. ADULT LOW DOSE ASPIRIN 81 MG * Take one(1) tablet daily. CALCIUM 600 + D(3) 600 MG-125* Take one(1) tablet daily. Problem List As Of Date 05/11/2017 Noted Resolved BENIGN HYPERTENSION [I10] INVALID FOR* Myalgia and myositis, unspecified [[id number]] INVALID FOR*10/07/2016 Insomnia [G47.00] INVALID FOR* ESOPHAGEAL REFLUX [K21.9] INVALID FOR* Actinic keratosis [L57.0] INVALID FOR*07/04/2014 Inflamed seborrheic keratosis [L82.0] INVALID FOR*07/04/2014 Other chronic 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 radiation*INVALID FOR*07/04/2014 SOLAR LENGINES///DYSCHROMIA OTHER [L81.9] INVALID FOR*07/04/2014 Hyperlipidemia [E78.5] INVALID FOR* Sleep apnea [G47.30] INVALID FOR* Glucose intolerance (pre-diabetes) [R73.03] INVALID FOR*09/09/2013 Arthritis of knee, degenerative [M17.10] INVALID FOR*10/07/2016 Type 2 diabetes mellitus without complication (*INVALID FOR* Spinal stenosis of lumbar region [M48.061] INVALID FOR* Primary osteoarthritis of left knee [M17.12] INVALID FOR* Pain in left knee [M25.562] INVALID FOR*10/07/2016 Marital conflict [Z63.0] INVALID FOR*10/07/2016 Adjustment disorder with mixed anxiety and depr*INVALID FOR* Obesity (BMI 30.0-34.9) [E66.9] INVALID FOR* Inflammatory polyarthritis (HCC) [M06.4] INVALID FOR* More... Family history of ischemic heart disease [Z82.4*INVALID FOR* Obesity (BMI 35.0-39.9 without comorbidity) [E6*INVALID FOR* Aortic valve sclerosis [I35.8] INVALID FOR* Prescriptions ordered this encounter Disp Refills Start End ONETOUCH VERIO STRIPS 100 * 11 05/12/2017 Sig: TEST BLOOD SUGAR(S) 2 TO 3 TIMES DAILY. DX: TYPE 2 DM - CONTROLLED E11.9 INSULIN: NO Medications Discontinued During This Encounter blood sugar diagnostic (ONETOUCH MOUNIKA* 100 * 11 05/07/2016 05/12/2017 Sig: Test blood sugar(s) 2 to 3 times daily. Dx: Type 2 DM - Controlled E11.9 Insulin: No Disc: Reason for discontinue is not on file. Encounter Status:Closed by RHETT DORSEY MD on 05/12/17 OBSOLETE Observed: 05/10/2017 Status: COMPLETED Source: [place] 12:00 AM [facility] REPOSITORY Refill (FAMPWS) BRISSALAURYN ([id number]) 1950 F Date Time Provider Department 05/10/17 RHETT DORSEY During your visit today, we recorded the following information about you: Raya White LPN 05/13/2017 12:04 PM Signed Last OV: 05/02/17 Last prescribed: 05/22/16- 90 with 3 refills Future OV: 11/04/17 OARRS: na Raya White LPN Allergies As of Date: 05/10/2017 Noted Allergy Reaction NICKEL 01/01/2007 2 - Rash 9 - Itching metal [Other] 01/01/2007 2 - Rash 9 - Itching AMLODIPINE 04/07/2012 7 - Swelling LISINOPRIL 11/25/2011 3 - Cough Date Reviewed: 05/07/2017 Reviewed by: Fany Martel Ma - Fully Assessed Reason for Visit: Refill Request [94] Order(s):losartan (COZAAR) 100 mg tabletTAKE 1 TABLET BY MOUTH ONCE DAILY.Disp: 90 tabletRfl: 3 Prescriptions as of 05/10/2017 Sig: LOSARTAN 100 MG TABLET TAKE 1 TABLET BY MOUTH ONCE D* FLUOXETINE 20 MG CAPSULE TAKE 4 CAPSULES BY MOUTH ONCE* NAPROXEN 500 MG TABLET Take 1 tablet by mouth twice * TRAZODONE 50 MG TABLET Take 1 tablet by mouth daily * SPIRONOLACTONE 25 MG TABLET TAKE 1 TABLET BY MOUTH EVERY * OXAZEPAM 15 MG CAPSULE one(1) tablet daily at bedtim* METFORMIN 500 MG TABLET TAKE 1 TABLET BY MOUTH TWICE * ORPHENADRINE CITRATE ER 100 M* TAKE 1 TABLET BY MOUTH EVERY * ATENOLOL 50 MG TABLET Take 1 tablet by mouth once d* PENCICLOVIR 1 % TOPICAL CREAM Apply 1 application to affect* HYDROCHLOROTHIAZIDE 25 MG TAB* Take 1 tablet by mouth once d* ARMODAFINIL 250 MG TABLET Take 250 mg by mouth once milton* X BLOOD SUGAR DIAGNOSTIC STRIPS Test blood sugar(s) 2 to 3 ti* COLESTIPOL 1 GRAM TABLET TAKE 1 TABLET BY MOUTH ONCE D* LANCETS Test blood sugar(s) 2 to 3 ti* LANCETS 33 GAUGE USE INSTRUCTED GABAPENTIN 100 MG CAPSULE Take 100 mg by mouth three ti* DAILY MULTIVITAMIN TABLET Take one(1) tablet daily. ADULT LOW DOSE ASPIRIN 81 MG * Take one(1) tablet daily. CALCIUM 600 + D(3) 600 MG-125* Take one(1) tablet daily. Problem List As Of Date 05/10/2017 Noted Resolved BENIGN HYPERTENSION [I10] INVALID FOR* Myalgia and myositis, unspecified [[id number]] INVALID FOR*10/07/2016 Insomnia [G47.00] INVALID FOR* ESOPHAGEAL REFLUX [K21.9] INVALID FOR* Actinic keratosis [L57.0] INVALID FOR*07/04/2014 Inflamed seborrheic keratosis [L82.0] INVALID FOR*07/04/2014 Other chronic 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 radiation*INVALID FOR*07/04/2014 SOLAR LENGINES///DYSCHROMIA OTHER [L81.9] INVALID FOR*07/04/2014 Hyperlipidemia [E78.5] INVALID FOR* Sleep apnea [G47.30] INVALID FOR* Glucose intolerance (pre-diabetes) [R73.03] INVALID FOR*09/09/2013 Arthritis of knee, degenerative [M17.10] INVALID FOR*10/07/2016 Type 2 diabetes mellitus without complication (*INVALID FOR* Spinal stenosis of lumbar region [M48.061] INVALID FOR* Primary osteoarthritis of left knee [M17.12] INVALID FOR* Pain in left knee [M25.562] INVALID FOR*10/07/2016 Marital conflict [Z63.0] INVALID FOR*10/07/2016 Adjustment disorder with mixed anxiety and depr*INVALID FOR* Obesity (BMI 30.0-34.9) [E66.9] INVALID FOR* Inflammatory polyarthritis (HCC) [M06.4] INVALID FOR* More... Family history of ischemic heart disease [Z82.4*INVALID FOR* Obesity (BMI 35.0-39.9 without comorbidity) [E6*INVALID FOR* Aortic valve sclerosis [I35.8] INVALID FOR* Prescriptions ordered this encounter Disp Refills Start End LOSARTAN 100 MG TABLET 90 t* 3 05/13/2017 Sig: TAKE 1 TABLET BY MOUTH ONCE DAILY. Medications Discontinued During This Encounter losartan (COZAAR) 100 mg tablet 90 t* 3 05/22/2016 05/13/2017 Sig: TAKE 1 TABLET BY MOUTH ONCE DAILY. Disc: Reason for discontinue is not on file. Encounter Status:Closed by RHETT DORSEY MD on 05/13/17 PROGRESS Observed: 05/07/2017 Status: COMPLETED Source: [place] 3:25 PM [facility] REPOSITORY [facility] ID: [id number] Author: Mandeep Mensah Service: (none) Author Type: Physician Type: Progress Notes Filed: 05/07/2017 8:12 PM Note Text: Follow up podiatric office visit for: Chief Complaint: This 67 year old who presents for follow up:diabetic foot exam. Patient was last seen in October 2016. She states that her diabetes is doing well. She did get orthotics after last office visit. Patient states the orthotics are helping her significantly. Patient is using them daily and is doing very well. She states her diabetes is doing well. No other complaints. PAIN EVALUATION No data found. Hemoglobin A1C Date Value Ref Range Status 04/29/2017 5.9 (H) 4.3 - 5.6 % Final PCP: Rhett Dorsey MD PAST MEDICAL HISTORY Diagnosis Date - Cardiomyopathy in other diseases classified elsewhere echo 2008-normal EF - Complication of anesthesia - Diverticulosis of colon (without mention of hemorrhage) - Esophageal reflux Gastroesophageal reflux - Internal hemorrhoids without mention of complication - Mental disorder - Myalgia and myositis, unspecified Fibromyalgia (myalgia and myositis) - PMH - PAST MEDICAL HISTORY OF pre diabetic - Sleep apnea - Unspecified essential hypertension Essential hypertension Current Outpatient Prescriptions: FLUoxetine (PROZAC) 20 mg capsule TAKE 4 CAPSULES BY MOUTH ONCE DAILY. naproxen (NAPROSYN) 500 mg tablet Take 1 tablet by mouth twice daily with meals. As needed traZODone (DESYREL) 50 mg tablet Take 1 tablet by mouth daily at bedtime. spironolactone (ALDACTONE) 25 mg tablet TAKE 1 TABLET BY MOUTH EVERY DAY oxazepam (SERAX) 15 mg capsule one(1) tablet daily at bedtime as needed for sleep. metFORMIN (GLUCOPHAGE) 500 mg tablet TAKE 1 TABLET BY MOUTH TWICE DAILY WITH MEALS. orphenadrine ER (NORFLEX) 100 mg tablet TAKE 1 TABLET BY MOUTH EVERY DAY atenolol (TENORMIN) 50 mg tablet Take 1 tablet by mouth once daily. penciclovir (DENAVIR) 1 % cream Apply 1 application to affected area twice daily as needed. hydroCHLOROthiazide (HYDRODIURIL, ESIDRIX) 25 mg tablet Take 1 tablet by mouth once daily. losartan (COZAAR) 100 mg tablet TAKE 1 TABLET BY MOUTH ONCE DAILY. armodafinil (NUVIGIL) 250 mg tab Take 250 mg by mouth once daily. blood sugar diagnostic (ONETOUCH VERIO) test strip Test blood sugar(s) 2 to 3 times daily. Dx: Type 2 DM - Controlled E11.9 Insulin: No colestipol (COLESTID) 1 gram tablet TAKE 1 TABLET BY MOUTH ONCE DAILY. Lancets lancets Test blood sugar(s) 2 to 3 times daily. Dx: Type 2 DM - Controlled E11.9 Insulin: No. Uses One Touch Verio Meter. lancets (ONE TOUCH DELLSA Sports) 33 gauge misc USE INSTRUCTED gabapentin (NEURONTIN) 100 mg capsule Take 100 mg by mouth three times daily. multivitamins(DAILY MULTIVITAMIN TAB) Take one(1) tablet daily. aspirin(ADULT LOW DOSE ASPIRIN 81 MG TAB, DELAYED RELEASE) Take one(1) tablet daily. CALCIUM 600 + D 600 MG-125 UNIT TAB Take one(1) tablet daily. No current facility-administered medications for this visit. 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 OBJECTIVE: Vascular: DP and PT pulses are palpable to b/l lower extremity Neuro: protective sensation is intact when tested with 5.07 swmf. Vibratory sensation is decreased to b/l hallux Dermatological: Nails 1-5 b/l are normal in length but do show significant thickness. Webspaces clean and dry 1-4 b/l. Skin appears well hydrated and supple. good color, texture, turgor. No open lesions present. No callosities present. Musculoskeletal/Orthopaedic: Patient has no pain to palpation of b/l feet Plantarflexion, dorsiflexion, inversion and eversion is 5/5 ASSESSMENT: (E11.42) Diabetic polyneuropathy associated with type 2 diabetes mellitus (HCC) (primary encounter diagnosis) PLAN: 1. History and physical examination completed today. 2. Patient was examined and informed of current findings 3. Diabetic exam was performed. Diabetic education discussed. 4. Patient offered diabetic shoes but she declined. 5. F/u in 3 months for diabetic foot exam Mandeep Mensah DPM CNOV Observed: 05/07/2017 Status: COMPLETED Source: [place] 3:10 PM [facility] REPOSITORY Office Visit (PODIWS) LAURYN BRUMFIELD ([id number]) 1950 F Date Time Provider Department 05/07/17 3:10 PM MANDEEP MENSAH During your visit today, we recorded the following information about you: Mandeep Mensah DPM 05/07/2017 8:12 PM Signed Follow up podiatric office visit for: Chief Complaint: This 67 year old who presents for follow up:diabetic foot exam. Patient was last seen in October 2016. She states that her diabetes is doing well. She did get orthotics after last office visit. Patient states the orthotics are helping her significantly. Patient is using them daily and is doing very well. She states her diabetes is doing well. No other complaints. PAIN EVALUATION No data found. Hemoglobin A1C Date Value Ref Range Status 04/29/2017 5.9 (H) 4.3 - 5.6 % Final PCP: Rhett Dorsey MD PAST MEDICAL HISTORY Diagnosis Date - Cardiomyopathy in other diseases classified elsewhere echo 2008-normal EF - Complication of anesthesia - Diverticulosis of colon (without mention of hemorrhage) - Esophageal reflux Gastroesophageal reflux - Internal hemorrhoids without mention of complication - Mental disorder - Myalgia and myositis, unspecified Fibromyalgia (myalgia and myositis) - PMH - PAST MEDICAL HISTORY OF pre diabetic - Sleep apnea - Unspecified essential hypertension Essential hypertension Current Outpatient Prescriptions: FLUoxetine (PROZAC) 20 mg capsule TAKE 4 CAPSULES BY MOUTH ONCE DAILY. naproxen (NAPROSYN) 500 mg tablet Take 1 tablet by mouth twice daily with meals. As needed traZODone (DESYREL) 50 mg tablet Take 1 tablet by mouth daily at bedtime. spironolactone (ALDACTONE) 25 mg tablet TAKE 1 TABLET BY MOUTH EVERY DAY oxazepam (SERAX) 15 mg capsule one(1) tablet daily at bedtime as needed for sleep. metFORMIN (GLUCOPHAGE) 500 mg tablet TAKE 1 TABLET BY MOUTH TWICE DAILY WITH MEALS. orphenadrine ER (NORFLEX) 100 mg tablet TAKE 1 TABLET BY MOUTH EVERY DAY atenolol (TENORMIN) 50 mg tablet Take 1 tablet by mouth once daily. penciclovir (DENAVIR) 1 % cream Apply 1 application to affected area twice daily as needed. hydroCHLOROthiazide (HYDRODIURIL, ESIDRIX) 25 mg tablet Take 1 tablet by mouth once daily. losartan (COZAAR) 100 mg tablet TAKE 1 TABLET BY MOUTH ONCE DAILY. armodafinil (NUVIGIL) 250 mg tab Take 250 mg by mouth once daily. blood sugar diagnostic (ONETOUCH VERIO) test strip Test blood sugar(s) 2 to 3 times daily. Dx: Type 2 DM - Controlled E11.9 Insulin: No colestipol (COLESTID) 1 gram tablet TAKE 1 TABLET BY MOUTH ONCE DAILY. Lancets lancets Test blood sugar(s) 2 to 3 times daily. Dx: Type 2 DM - Controlled E11.9 Insulin: No. Uses One Touch Verio Meter. lancets (ONE TOUCH DELICA) 33 gauge misc USE INSTRUCTED gabapentin (NEURONTIN) 100 mg capsule Take 100 mg by mouth three times daily. multivitamins(DAILY MULTIVITAMIN TAB) Take one(1) tablet daily. aspirin(ADULT LOW DOSE ASPIRIN 81 MG TAB, DELAYED RELEASE) Take one(1) tablet daily. CALCIUM 600 + D 600 MG-125 UNIT TAB Take one(1) tablet daily. No current facility-administered medications for this visit. 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 OBJECTIVE: Vascular: DP and PT pulses are palpable to b/l lower extremity Neuro: protective sensation is intact when tested with 5.07 swmf. Vibratory sensation is decreased to b/l hallux Dermatological: Nails 1-5 b/l are normal in length but do show significant thickness. Webspaces clean and dry 1-4 b/l. Skin appears well hydrated and supple. good color, texture, turgor. No open lesions present. No callosities present. Musculoskeletal/Orthopaedic: Patient has no pain to palpation of b/l feet Plantarflexion, dorsiflexion, inversion and eversion is 5/5 ASSESSMENT: (E11.42) Diabetic polyneuropathy associated with type 2 diabetes mellitus (HCC) (primary encounter diagnosis) PLAN: 1. History and physical examination completed today. 2. Patient was examined and informed of current findings 3. Diabetic exam was performed. Diabetic education discussed. 4. Patient offered diabetic shoes but she declined. 5. F/u in 3 months for diabetic foot exam Mandeep Mensah DPM Referring Provider: MANDEEP MENSAH [[id number]] Allergies As of Date: 05/07/2017 Noted Allergy Reaction NICKEL 01/01/2007 2 - Rash 9 - Itching metal [Other] 01/01/2007 2 - Rash 9 - Itching AMLODIPINE 04/07/2012 7 - Swelling LISINOPRIL 11/25/2011 3 - Cough Date Reviewed: 05/07/2017 Reviewed by: Fany Martel Ma - Fully Assessed Reason for Visit: Diabetic Foot Check [762] Primary Visit Diagnosis:Diabetic polyneuropathy associated with type 2 diabetes mellitus (HCC) [E11.42] Prescriptions as of 05/07/2017 Sig: FLUOXETINE 20 MG CAPSULE TAKE 4 CAPSULES BY MOUTH ONCE* NAPROXEN 500 MG TABLET Take 1 tablet by mouth twice * TRAZODONE 50 MG TABLET Take 1 tablet by mouth daily * SPIRONOLACTONE 25 MG TABLET TAKE 1 TABLET BY MOUTH EVERY * OXAZEPAM 15 MG CAPSULE one(1) tablet daily at bedtim* METFORMIN 500 MG TABLET TAKE 1 TABLET BY MOUTH TWICE * ORPHENADRINE CITRATE ER 100 M* TAKE 1 TABLET BY MOUTH EVERY * ATENOLOL 50 MG TABLET Take 1 tablet by mouth once d* PENCICLOVIR 1 % TOPICAL CREAM Apply 1 application to affect* HYDROCHLOROTHIAZIDE 25 MG TAB* Take 1 tablet by mouth once d* LOSARTAN 100 MG TABLET TAKE 1 TABLET BY MOUTH ONCE D* ARMODAFINIL 250 MG TABLET Take 250 mg by mouth once [place]* BLOOD SUGAR DIAGNOSTIC STRIPS Test blood sugar(s) 2 to 3 ti* COLESTIPOL 1 GRAM TABLET TAKE 1 TABLET BY MOUTH ONCE D* LANCETS Test blood sugar(s) 2 to 3 ti* LANCETS 33 GAUGE USE INSTRUCTED GABAPENTIN 100 MG CAPSULE Take 100 mg by mouth three ti* DAILY MULTIVITAMIN TABLET Take one(1) tablet daily. ADULT LOW DOSE ASPIRIN 81 MG * Take one(1) tablet daily. CALCIUM 600 + D(3) 600 MG-125* Take one(1) tablet daily. Problem List As Of Date 05/07/2017 Noted Resolved BENIGN HYPERTENSION [I10] INVALID FOR* Myalgia and myositis, unspecified [[id number]] INVALID FOR*10/07/2016 Insomnia [G47.00] INVALID FOR* ESOPHAGEAL REFLUX [K21.9] INVALID FOR* Actinic keratosis [L57.0] INVALID FOR*07/04/2014 Inflamed seborrheic keratosis [L82.0] INVALID FOR*07/04/2014 Other chronic 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 radiation*INVALID FOR*07/04/2014 SOLAR LENGINES///DYSCHROMIA OTHER [L81.9] INVALID FOR*07/04/2014 Hyperlipidemia [E78.5] INVALID FOR* Sleep apnea [G47.30] INVALID FOR* Glucose intolerance (pre-diabetes) [R73.03] INVALID FOR*09/09/2013 Arthritis of knee, degenerative [M17.10] INVALID FOR*10/07/2016 Type 2 diabetes mellitus without complication (*INVALID FOR* Spinal stenosis of lumbar region [M48.061] INVALID FOR* Primary osteoarthritis of left knee [M17.12] INVALID FOR* Pain in left knee [M25.562] INVALID FOR*10/07/2016 Marital conflict [Z63.0] INVALID FOR*10/07/2016 Adjustment disorder with mixed anxiety and depr*INVALID FOR* Obesity (BMI 30.0-34.9) [E66.9] INVALID FOR* Inflammatory polyarthritis (HCC) [M06.4] INVALID FOR* More... Family history of ischemic heart disease [Z82.4*INVALID FOR* Obesity (BMI 35.0-39.9 without comorbidity) [E6*INVALID FOR* Aortic valve sclerosis [I35.8] INVALID FOR* Encounter Status:Closed by MANDEEP MENSAH DPM on 05/07/17 PROGRESS Observed: 05/02/2017 Status: COMPLETED Source: [place] 10:13 AM [facility] REPOSITORY O ID: [id number] Author: Rhett Dorsey Service: (none) Author Type: Physician Type: Progress Notes Filed: 05/05/2017 12:56 PM Note Text: Patient presents with: Diabetes Recheck: reveiw labs since being off arthritis medication HPI: Patient presents today for office visit for chronic follow up. HYPERTENSION:no chest pain or new shortness of breath. No edema. ENDO:no polydipsia. No increased polyuria. Discussed low carb diet. PSYCH:emotionally stable. Still has her ups and downs but has a good outlook. Discussed limiting her serax to just at night. Discussed adding something like seeing psychiatry if anxiety worsens. Still seeing sleep med who is prescribing her nuvigil. [facility] website checked and validated. All prescriptions have been APPROPRIATELY filled. No suspicious activity was identified.- 05/02/2017 by Rhett Dorsey MD CARDIO: saw cardiology at [facility]. Did echo and ordered repeat stress test. Echo was overall ok. She did not do a stress test yet. She will call Dr. Aguilera;'s office to verify when he wants to do it. RHEUM: just taking naproxen. Overall feeling well. Normal sed rate Component Latest Ref Rng AND Units 04/29/2017 Protein, Total 6.3 - 8.0 g/dL 7.0 Albumin 3.9 - 4.9 g/dL 4.1 Calcium 8.5 - 10.2 mg/dL 9.6 Bilirubin, Total 0.2 - 1.3 mg/dL 0.3 Alkaline Phosphatase 32 - 117 U/L 88 AST 13 - 35 U/L 27 Glucose 74 - 99 mg/dL 141 (H) BUN 7 - 21 mg/dL 19 Creatinine 0.58 - 0.96 mg/dL 0.53 (L) Sodium 136 - 144 mmol/L 140 Potassium 3.7 - 5.1 mmol/L 4.5 Chloride 97 - 105 mmol/L 101 CO2 22 - 30 mmol/L 25 Anion Gap 9 - 18 mmol/L 14 ALT 7 - 38 U/L 25 eGFR- >60 eGFR-All Other Races . >60 Triglyceride 30 - 149 mg/dL 152 (H) Cholesterol 100 - 199 mg/dL 192 HDL Cholesterol >55 mg/dL 54 (L) VLDL Cholesterol 6 - 40 mg/dL 30 LDL Cholesterol 60 - 129 mg/dL 108 Fasting Time hrs 8 TC:HDL Ratio 1.00 - 5.00 3.56 LDL:HDL Ratio 0.50 - 3.55 2.00 Non HDL Cholesterol 90 - 159 mg/dL 138 Hemoglobin A1C 4.3 - 5.6 % 5.9 (H) Estimated Average Glucose mg/dL 123 WSR 0 - 20 mm/hr 5 CRP <0.9 mg/dL 0.7 MEDICATIONS: Current Outpatient Prescriptions: FLUoxetine (PROZAC) 20 mg capsule TAKE 4 CAPSULES BY MOUTH ONCE DAILY. naproxen (NAPROSYN) 500 mg tablet Take 1 tablet by mouth twice daily with meals. As needed traZODone (DESYREL) 50 mg tablet Take 1 tablet by mouth daily at bedtime. spironolactone (ALDACTONE) 25 mg tablet TAKE 1 TABLET BY MOUTH EVERY DAY oxazepam (SERAX) 15 mg capsule one(1) tablet daily at bedtime as needed for sleep. metFORMIN (GLUCOPHAGE) 500 mg tablet TAKE 1 TABLET BY MOUTH TWICE DAILY WITH MEALS. orphenadrine ER (NORFLEX) 100 mg tablet TAKE 1 TABLET BY MOUTH EVERY DAY atenolol (TENORMIN) 50 mg tablet Take 1 tablet by mouth once daily. hydroCHLOROthiazide (HYDRODIURIL, ESIDRIX) 25 mg tablet Take 1 tablet by mouth once daily. losartan (COZAAR) 100 mg tablet TAKE 1 TABLET BY MOUTH ONCE DAILY. armodafinil (NUVIGIL) 250 mg tab Take 250 mg by mouth once daily. colestipol (COLESTID) 1 gram tablet TAKE 1 TABLET BY MOUTH ONCE DAILY. gabapentin (NEURONTIN) 100 mg capsule Take 100 mg by mouth three times daily. multivitamins(DAILY MULTIVITAMIN TAB) Take one(1) tablet daily. aspirin(ADULT LOW DOSE ASPIRIN 81 MG TAB, DELAYED RELEASE) Take one(1) tablet daily. CALCIUM 600 + D 600 MG-125 UNIT TAB Take one(1) tablet daily. penciclovir (DENAVIR) 1 % cream Apply 1 application to affected area twice daily as needed. blood sugar diagnostic (ONETOUCH VERIO) test strip Test blood sugar(s) 2 to 3 times daily. Dx: Type 2 DM - Controlled E11.9 Insulin: No Lancets lancets Test blood sugar(s) 2 to 3 times daily. Dx: Type 2 DM - Controlled E11.9 Insulin: No. Uses One Touch Verio Meter. lancets (ONE TOUCH DELLSA Sports) 33 gauge misc USE INSTRUCTED No current facility-administered medications for this visit. ALLERGIES: ALLERGIES Allergen Reactions - Nickel Rash, Itching - Metal [Other] Rash, Itching - Amlodipine Swelling - Lisinopril Cough PAST MEDICAL HISTORY Diagnosis Date - Cardiomyopathy in other diseases classified elsewhere echo 2008-normal EF - Complication of anesthesia - Diverticulosis of colon (without mention of hemorrhage) - Esophageal reflux Gastroesophageal reflux - Internal hemorrhoids without mention of complication - Mental disorder - Myalgia and myositis, unspecified Fibromyalgia (myalgia and myositis) - PMH - PAST MEDICAL HISTORY OF pre diabetic - Sleep apnea - Unspecified essential hypertension Essential hypertension PAST SURGICAL HISTORY Procedure Laterality Date - COLONOSCOP W/ OR W/O [facility] SPEC 1999 Colonoscopy-due 2009 - COLONOSCOP W/ OR W/O [facility] SPEC 01/29/10 - DENTAL SURGERY PROCEDURE 04/2010 laser top right teeth - EGD W/O OR W/BRUSH/WASH 05/2003 EGD - 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 - Stroke Mother - Alzheimer's Disease Father - Osteoporosis Sister - Thyroid Daughter - Cancer Brother kidney ca./renal cell - Coronary Artery Disease Brother OR, has a bad disc is the same as above - Cancer Maternal Grandmother liver ca. 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 Hasn't smoked since she was 48yrs. Alcohol use: No Drug use: No Sexual activity: No Reviewed current medications, allergies, past medical history, surgical history, family history and social history today. REVIEW OF SYSTEMS All other reviewed and negative other than HPI. HEALTH MAINTENANCE: Reviewed health maintenance issues today and recommended the following in detail. TETANUS due on 01/01/2017 VITALS: BP 150/74 Pulse 80 Resp 14 Wt 100.2 kg (221 lb) BMI 35.94 kg/m2 Last 4 Encounter Wt Readings: Date: Wt: 05/02/2017 100.2 kg (221 lb) 01/21/2017 101.2 kg (223 lb) 01/13/2017 99.8 kg (220 lb) 11/22/2016 99.2 kg (218 lb 12.8 oz) PHYSICAL EXAMINATION: General appearance: Well appearing, alert, in no acute distress, well-hydrated, well nourished. Skin: Skin color, texture, turgor normal, no suspicious rashes or lesions Head: Normocephalic, no masses, lesions, tenderness or abnormalities Neck: Supple, no adenopathy; thyroid symmetric, normal size, no bruits Lungs: Lungs clear to auscultation. No wheezing, rhonchi, rales Heart: RRR without murmur, gallop, or rubs. No ectopy Abdomen: Normal abdominal exam, Abdomen soft, non-tender. Bowel sounds normal. No masses, organomegaly Extremities: No deformities, edema, skin discoloration, clubbing or cyanosis. Good capillary refill. Musculoskeletal: No joint swelling, deformity, or tenderness ASSESSMENT/PLAN: 1. Inflammatory polyarthritis (HCC) - ICD9: 714.9, ICD10: M06.4 (primary diagnosis) Check labs - SED RATE WESTERGREN 2. Type 2 diabetes mellitus without complication, without long-term current use of insulin (HCC) - ICD9: 250.00, ICD10: E11.9 - monitor labs. Call if any ssues. - HGB A1C 3. Sleep apnea, unspecified type - ICD9: 780.57, ICD10: G47.30 4. Hyperlipidemia, unspecified hyperlipidemia type - ICD9: 272.4, ICD10: E78.5 -watch diet 5. Essential hypertension, benign - ICD9: 401.1, ICD10: I10 - fair control - Continue current medication(s) - Encouraged dietary sodium restriction/DASH diet - Recommended regular aerobic exercise. - Goal of BP <140/90 - BASIC METABOLIC PNL 6. Insomnia, unspecified type - ICD9: 780.52, ICD10: G47.00 - call if any worsening Rhett Dorsey MD CNOV Observed: 05/02/2017 Status: COMPLETED Source: [place] 9:40 AM [facility] REPOSITORY Office Visit (FAMPWS) LAURYN BRUMFIELD ([id number]) 1950 F Date Time Provider Department 05/02/17 9:40 AM RHETT DORSEY [facility] [place] During your visit today, we recorded the following information about you: Pulse Respiration Blood pressure Weight 80/minute 14/minute 150/74 100.2 kg Rhett Dorsey MD 05/05/2017 12:56 PM Signed Patient presents with: Diabetes Recheck: reveiw labs since being off arthritis medication HPI: Patient presents today for office visit for chronic follow up. HYPERTENSION:no chest pain or new shortness of breath. No edema. ENDO:no polydipsia. No increased polyuria. Discussed low carb diet. PSYCH:emotionally stable. Still has her ups and downs but has a good outlook. Discussed limiting her serax to just at night. Discussed adding something like seeing psychiatry if anxiety worsens. Still seeing sleep med who is prescribing her nuvigil. [facility] website checked and validated. All prescriptions have been APPROPRIATELY filled. No suspicious activity was identified.- 05/02/2017 by Rhett Dorsey MD CARDIO: saw cardiology at [facility]. Did echo and ordered repeat stress test. Echo was overall ok. She did not do a stress test yet. She will call Dr. Aguilera;'s office to verify when he wants to do it. RHEUM: just taking naproxen. Overall feeling well. Normal sed rate Component Latest Ref Rng ANDamp; Units 04/29/2017 Protein, Total 6.3 - 8.0 g/dL 7.0 Albumin 3.9 - 4.9 g/dL 4.1 Calcium 8.5 - 10.2 mg/dL 9.6 Bilirubin, Total 0.2 - 1.3 mg/dL 0.3 Alkaline Phosphatase 32 - 117 U/L 88 AST 13 - 35 U/L 27 Glucose 74 - 99 mg/dL 141 (H) BUN 7 - 21 mg/dL 19 Creatinine 0.58 - 0.96 mg/dL 0.53 (L) Sodium 136 - 144 mmol/L 140 Potassium 3.7 - 5.1 mmol/L 4.5 Chloride 97 - 105 mmol/L 101 CO2 22 - 30 mmol/L 25 Anion Gap 9 - 18 mmol/L 14 ALT 7 - 38 U/L 25 eGFR- ANDgt;60 eGFR-All Other Races . ANDgt;60 Triglyceride 30 - 149 mg/dL 152 (H) Cholesterol 100 - 199 mg/dL 192 HDL Cholesterol ANDgt;55 mg/dL 54 (L) VLDL Cholesterol 6 - 40 mg/dL 30 LDL Cholesterol 60 - 129 mg/dL 108 Fasting Time hrs 8 TC:HDL Ratio 1.00 - 5.00 3.56 LDL:HDL Ratio 0.50 - 3.55 2.00 Non HDL Cholesterol 90 - 159 mg/dL 138 Hemoglobin A1C 4.3 - 5.6 % 5.9 (H) Estimated Average Glucose mg/dL 123 WSR 0 - 20 mm/hr 5 CRP ANDlt;0.9 mg/dL 0.7 MEDICATIONS: Current Outpatient Prescriptions: FLUoxetine (PROZAC) 20 mg capsule TAKE 4 CAPSULES BY MOUTH ONCE DAILY. naproxen (NAPROSYN) 500 mg tablet Take 1 tablet by mouth twice daily with meals. As needed traZODone (DESYREL) 50 mg tablet Take 1 tablet by mouth daily at bedtime. spironolactone (ALDACTONE) 25 mg tablet TAKE 1 TABLET BY MOUTH EVERY DAY oxazepam (SERAX) 15 mg capsule one(1) tablet daily at bedtime as needed for sleep. metFORMIN (GLUCOPHAGE) 500 mg tablet TAKE 1 TABLET BY MOUTH TWICE DAILY WITH MEALS. orphenadrine ER (NORFLEX) 100 mg tablet TAKE 1 TABLET BY MOUTH EVERY DAY atenolol (TENORMIN) 50 mg tablet Take 1 tablet by mouth once daily. hydroCHLOROthiazide (HYDRODIURIL, ESIDRIX) 25 mg tablet Take 1 tablet by mouth once daily. losartan (COZAAR) 100 mg tablet TAKE 1 TABLET BY MOUTH ONCE DAILY. armodafinil (NUVIGIL) 250 mg tab Take 250 mg by mouth once daily. colestipol (COLESTID) 1 gram tablet TAKE 1 TABLET BY MOUTH ONCE DAILY. gabapentin (NEURONTIN) 100 mg capsule Take 100 mg by mouth three times daily. multivitamins(DAILY MULTIVITAMIN TAB) Take one(1) tablet daily. aspirin(ADULT LOW DOSE ASPIRIN 81 MG TAB, DELAYED RELEASE) Take one(1) tablet daily. CALCIUM 600 + D 600 MG-125 UNIT TAB Take one(1) tablet daily. penciclovir (DENAVIR) 1 % cream Apply 1 application to affected area twice daily as needed. blood sugar diagnostic (ONETOUCH VERIO) test strip Test blood sugar(s) 2 to 3 times daily. Dx: Type 2 DM - Controlled E11.9 Insulin: No Lancets lancets Test blood sugar(s) 2 to 3 times daily. Dx: Type 2 DM - Controlled E11.9 Insulin: No. Uses One Touch Verio Meter. lancets (ONE TOUCH DELICA) 33 gauge [facility] USE INSTRUCTED No current facility-administered medications for this visit. ALLERGIES: ALLERGIES Allergen Reactions - Nickel Rash, Itching - Metal [Other] Rash, Itching - Amlodipine Swelling - Lisinopril Cough PAST MEDICAL HISTORY Diagnosis Date - Cardiomyopathy in other diseases classified elsewhere echo 2008-normal EF - Complication of anesthesia - Diverticulosis of colon (without mention of hemorrhage) - Esophageal reflux Gastroesophageal reflux - Internal hemorrhoids without mention of complication - Mental disorder - Myalgia and myositis, unspecified Fibromyalgia (myalgia and myositis) - PMH - PAST MEDICAL HISTORY OF pre diabetic - Sleep apnea - Unspecified essential hypertension Essential hypertension PAST SURGICAL HISTORY Procedure Laterality Date - COLONOSCOP W/ OR W/O [facility] SPEC 1999 Colonoscopy-due 2009 - COLONOSCOP W/ OR W/O [facility] SPEC 01/29/10 - DENTAL SURGERY PROCEDURE 04/2010 laser top right teeth - EGD W/O OR W/BRUSH/WASH 05/2003 EGD - 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 - Stroke Mother - Alzheimer's Disease Father - Osteoporosis Sister - Thyroid Daughter - Cancer Brother kidney ca./renal cell - Coronary Artery Disease Brother OR, has a bad disc is the same as above - Cancer Maternal Grandmother liver ca. 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 Hasn't smoked since she was 48yrs. Alcohol use: No Drug use: No Sexual activity: No Reviewed current medications, allergies, past medical history, surgical history, family history and social history today. REVIEW OF SYSTEMS All other reviewed and negative other than HPI. HEALTH MAINTENANCE: Reviewed health maintenance issues today and recommended the following in detail. TETANUS due on 01/01/2017 VITALS: BP 150/74 Pulse 80 Resp 14 Wt 100.2 kg (221 lb) BMI 35.94 kg/m2 Last 4 Encounter Wt Readings: Date: Wt: 05/02/2017 100.2 kg (221 lb) 01/21/2017 101.2 kg (223 lb) 01/13/2017 99.8 kg (220 lb) 11/22/2016 99.2 kg (218 lb 12.8 oz) PHYSICAL EXAMINATION: General appearance: Well appearing, alert, in no acute distress, well-hydrated, well nourished. Skin: Skin color, texture, turgor normal, no suspicious rashes or lesions Head: Normocephalic, no masses, lesions, tenderness or abnormalities Neck: Supple, no adenopathy; thyroid symmetric, normal size, no bruits Lungs: Lungs clear to auscultation. No wheezing, rhonchi, rales Heart: RRR without murmur, gallop, or rubs. No ectopy Abdomen: Normal abdominal exam, Abdomen soft, non-tender. Bowel sounds normal. No masses, organomegaly Extremities: No deformities, edema, skin discoloration, clubbing or cyanosis. Good capillary refill. Musculoskeletal: No joint swelling, deformity, or tenderness ASSESSMENT/PLAN: 1. Inflammatory polyarthritis (HCC) - ICD9: 714.9, ICD10: M06.4 (primary diagnosis) Check labs - SED RATE WESTERGREN 2. Type 2 diabetes mellitus without complication, without long-term current use of insulin (HCC) - ICD9: 250.00, ICD10: E11.9 - monitor labs. Call if any ssues. - HGB A1C 3. Sleep apnea, unspecified type - ICD9: 780.57, ICD10: G47.30 4. Hyperlipidemia, unspecified hyperlipidemia type - ICD9: 272.4, ICD10: E78.5 -watch diet 5. Essential hypertension, benign - ICD9: 401.1, ICD10: I10 - fair control - Continue current medication(s) - Encouraged dietary sodium restriction/DASH diet - Recommended regular aerobic exercise. - Goal of BP ANDlt;140/90 - BASIC METABOLIC PNL 6. Insomnia, unspecified type - ICD9: 780.52, ICD10: G47.00 - call if any worsening MD Rhett Pedraza MD 05/02/2017 10:31 AM Addendum Call with blood pressure in two weeks. Do labs and then follow up in six months. Labs do not need to be fasting. Referring Provider: SELF [200] Allergies As of Date: 05/02/2017 Noted Allergy Reaction NICKEL 01/01/2007 2 - Rash 9 - Itching metal [Other] 01/01/2007 2 - Rash 9 - Itching AMLODIPINE 04/07/2012 7 - Swelling LISINOPRIL 11/25/2011 3 - Cough Date Reviewed: 01/21/2017 Reviewed by: Leyda Jo LPN - Fully Assessed Reason for Visit: Diabetes [34] Recheck [92] Cmt: reveiw labs since being off arthritis medication Primary Visit Diagnosis:Inflammatory polyarthritis (HCC) [M06.4] Other Visit Diagnoses:Type 2 diabetes mellitus without complication, without long-term current use of insulin (HCC) [E11.9] Sleep apnea, unspecified type [G47.30] Hyperlipidemia, unspecified hyperlipidemia type [E78.5] Essential hypertension, benign [I10] Insomnia, unspecified type [G47.00] Order(s):HGB A1C [[id number]] Order #: [id number] FUTURE SED RATE WESTERGREN [SQWSR] Order #: [id number] FUTURE BASIC METABOLIC PNL [SQBMP] Order #: [id number] FUTURE Prescriptions as of 05/02/2017 Sig: FLUOXETINE 20 MG CAPSULE TAKE 4 CAPSULES BY MOUTH ONCE* NAPROXEN 500 MG TABLET Take 1 tablet by mouth twice * TRAZODONE 50 MG TABLET Take 1 tablet by mouth daily * SPIRONOLACTONE 25 MG TABLET TAKE 1 TABLET BY MOUTH EVERY * OXAZEPAM 15 MG CAPSULE one(1) tablet daily at bedtim* METFORMIN 500 MG TABLET TAKE 1 TABLET BY MOUTH TWICE * ORPHENADRINE CITRATE ER 100 M* TAKE 1 TABLET BY MOUTH EVERY * ATENOLOL 50 MG TABLET Take 1 tablet by mouth once d* HYDROCHLOROTHIAZIDE 25 MG TAB* Take 1 tablet by mouth once d* LOSARTAN 100 MG TABLET TAKE 1 TABLET BY MOUTH ONCE D* ARMODAFINIL 250 MG TABLET Take 250 mg by mouth once [place]* COLESTIPOL 1 GRAM TABLET TAKE 1 TABLET BY MOUTH ONCE D* GABAPENTIN 100 MG CAPSULE Take 100 mg by mouth three ti* DAILY MULTIVITAMIN TABLET Take one(1) tablet daily. ADULT LOW DOSE ASPIRIN 81 MG * Take one(1) tablet daily. CALCIUM 600 + D(3) 600 MG-125* Take one(1) tablet daily. PENCICLOVIR 1 % TOPICAL CREAM Apply 1 application to affect* BLOOD SUGAR DIAGNOSTIC STRIPS Test blood sugar(s) 2 to 3 ti* LANCETS Test blood sugar(s) 2 to 3 ti* LANCETS 33 GAUGE USE INSTRUCTED Problem List As Of Date 05/02/2017 Noted Resolved BENIGN HYPERTENSION [I10] INVALID FOR* Myalgia and myositis, unspecified [YGI2001] INVALID FOR*10/07/2016 Insomnia [G47.00] INVALID FOR* ESOPHAGEAL REFLUX [K21.9] INVALID FOR* Actinic keratosis [L57.0] INVALID FOR*07/04/2014 Inflamed seborrheic keratosis [L82.0] INVALID FOR*07/04/2014 Other chronic 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 radiation*INVALID FOR*07/04/2014 SOLAR LENGINES///DYSCHROMIA OTHER [L81.9] INVALID FOR*07/04/2014 Hyperlipidemia [E78.5] INVALID FOR* Sleep apnea [G47.30] INVALID FOR* Glucose intolerance (pre-diabetes) [R73.03] INVALID FOR*09/09/2013 Arthritis of knee, degenerative [M17.10] INVALID FOR*10/07/2016 Type 2 diabetes mellitus without complication (*INVALID FOR* Spinal stenosis of lumbar region [M48.061] INVALID FOR* Primary osteoarthritis of left knee [M17.12] INVALID FOR* Pain in left knee [M25.562] INVALID FOR*10/07/2016 Marital conflict [Z63.0] INVALID FOR*10/07/2016 Adjustment disorder with mixed anxiety and depr*INVALID FOR* Obesity (BMI 30.0-34.9) [E66.9] INVALID FOR* Inflammatory polyarthritis (HCC) [M06.4] INVALID FOR* More... Family history of ischemic heart disease [Z82.4*INVALID FOR* Obesity (BMI 35.0-39.9 without comorbidity) [E6*INVALID FOR* Aortic valve sclerosis [I35.8] INVALID FOR* Other instructions from your clinician: Call with blood pressure in two weeks. Do labs and then follow up in six months. Labs do not need to be fasting. Disposition: Return in about 6 months (around 10/31/2017). Follow-up and Disposition History Recorded Encounter Status:Closed by RHETT DORSEY MD on 05/05/17 COMP METABOLIC PANEL Collected: 04/29/2017 Status: F Source: [facility] 8:25 AM [facility] REPOSITORY TYPE CODE TESTS RESULT OUT OF REFERENCE UNITS RANGE LAB TP 6.3-8.0 g/dL Protein, Total 7.0 LAB ALB 3.9-4.9 g/dL Albumin 4.1 LAB CA 8.5-10.2 mg/dL Calcium, Total 9.6 LAB TBIL 0.2-1.3 mg/dL Bilirubin, Total 0.3 LAB ALKP 32-117 U/L Alkaline Phosphatase 88 LAB AST 13-35 U/L AST 27 LAB GLU 74-99 mg/dL Glucose High 141 Result Comment: The [place] [employer] (ADA) provides guidance for cutoff values for fasting glucose and random glucose. The ADA defines fasting as no caloric intake for at least 8 hours. Fas ting plasma glucose results between 100 to 125 mg/dL indicate increased risk for diabetes (prediabetes). Fasting plasma glucose results greater than or equal to 126 mg/dL meet the criteria for diagnosis of diabetes. In the absence of unequivocal hyperglycemia, results should be confirmed by repeat testing. In a patient with classic symptoms of hyperglycemia or hyperglycemic crisis, random plasma glucose results greater than or equal to 200 mg/dL meet the criteria for diagnosis of diabetes. Reference: Standards of Medical Care in Diabetes 2016, [place] [employer]. Diabetes Care. 2016.39(Suppl 1). LAB BUN 7-21 mg/dL BUN 19 LAB CRET 0.58-0.96 mg/dL Creatinine Low 0.53 LAB NA 136-144 mmol/L Sodium 140 LAB K 3.7-5.1 mmol/L Potassium 4.5 LAB CL 97-105 mmol/L Chloride 101 LAB CO2 22-30 mmol/L CO2 25 LAB AGAP 9-18 mmol/L Anion Gap 14 LAB ALT 7-38 U/L ALT 25 LAB GFRAA eGFR- Amer. >60 LAB GFRNAA . eGFR-All Other Races >60 Result Comment: eGFR (Estimated GFR) Units of measure: mL/min/1.73 meters squared eGFR is derived from the reexpressed MDRD Study equation using the following parameters: serum creatinine, age, gender and race. The creatinine assay has been calibrated to be traceable to IDMS. An eGFR <60 mL/min/1.73m2 for >3 months is consistent with chronic kidney disease. Refer to KDOQI guidelines for clinical interpretation. In patients with unstable renal function, e.g. those with acute kidney injury, the eGFR may not accurately reflect actual GFR. Performed By: #### CMP, CRP, LIPB, WSR, HBA1C #### [facility] [employer] [address] [place], [place] [address] C-REACTIVE PROTEIN Collected: 04/29/2017 Status: F Source: [facility] 8:25 AM [facility] REPOSITORY TYPE CODE TESTS RESULT OUT OF REFERENCE UNITS RANGE LAB CRP <0.9 mg/dL C-Reactive 0.7 Protein Performed By: #### CMP, CRP, LIPB, WSR, HBA1C #### [facility] [address] [place] [id number] LIPID PANEL, BASIC Collected: 04/29/2017 Status: F Source: [facility] 8:25 AM [facility] REPOSITORY TYPE CODE TESTS RESULT OUT OF REFERENCE UNITS RANGE LAB TRIGLY 30-149 mg/dL Triglyceride High 152 LAB CHOL 100-199 mg/dL Cholesterol 192 LAB HDL >55 mg/dL Low HDL-Cholesterol 54 LAB VLDL 6-40 mg/dL VLDL Cholesterol 30 LAB LDL 60-129 mg/dL LDL-Cholesterol 108 LAB FT hrs Fasting Time 8 LAB TCHDL 1.00-5.00 TC:HDL Ratio 3.56 LAB LDLHDL 0.50-3.55 LDL:HDL Ratio 2.00 LAB NONHDL 90-159 mg/dL Non HDL Cholesterol 138 Performed By: #### CMP, CRP, LIPB, WSR, HBA1C #### [place] [address] SED RATE WESTERGREN Collected: 04/29/2017 Status: F Source: [facility] 8:25 AM [facility] REPOSITORY TYPE CODE TESTS RESULT OUT OF REFERENCE UNITS RANGE LAB WSR 0-20 mm/hr Sed Rate Westergren 5 Performed By: #### CMP, CRP, LIPB, WSR, HBA1C #### [place] [address] HEMOGLOBIN A1C Collected: 04/29/2017 Status: F Source: [facility] 8:25 AM [facility] REPOSITORY TYPE CODE TESTS RESULT OUT OF REFERENCE UNITS RANGE LAB HGBA1C 4.3-5.6 % High Hemoglobin A1c 5.9 LAB HBA0 mg/dL Est. Average Glucose 123 Result Comment: eAG: (Estimated average glucose) is a calculated value from HgbA1c and is union contract representative of the average blood glucose level in the last 2-3 month period. Performed By: #### CMP, CRP, LIPB, WSR, HBA1C #### [place] [address] [place] [id number] ALLERGIES ALLERGIES DATE TYPE / CODE NAME / CODE REACTION SEVERITY SOURCE 04/14/2018 Drug lisinopril/F006 Other - cough OR Jass Allergy/822841985(S 034740(RXNORM) [facility] NOMED CT) Hospital Repository 04/14/2018 Drug amlodipine/F006 Unknown SV [place] Allergy/530002739(S 936548(RXNORM) [facility] NOMED CT) Hospital Repository 04/14/2018 Drug nickel/[id number] Unknown SV [place] Allergy/046586112(S 08(RXNORM) [facility] NOMED CT) Hospital Repository 04/07/2012 DRUG AMLODIPINE SWELLING [place] INGREDI/[id number](S [facility] NOMED CT) [place] Repository 11/25/2011 DRUG LISINOPRIL COUGH [place] INGREDI/035013296([facility] NOMED CT) [place] Repository 01/01/2007 DRUG NICKEL RASH Med [place] INGREDI/057973591([facility] NOMED CT) [place] Repository 01/01/2007 Miscellaneous OTHER RASH Med [place] Allergy/997062244([facility] NOMED CT) [place] Repository ENCOUNTERS ENCOUNTERS ADMIT/DISCHARGE ACCOUNT ADMITTING ENCOUNTER LOCATION SOURCE NUMBER CLASS 04/15/2018/04/15/20 [id number] Ambulatory [address] [place] Repository 04/15/2018/04/15/20 [id number] Ambulatory [address] Repository 04/15/2018/04/16/20 [id number] Ambulatory [address] Repository 04/14/2018/04/14/20 [id number] Ambulatory BMSBuilding:B [place] 18 [facility] Repository 04/08/2018/04/08/20 [id number] Ambulatory BMSBuilding:B [place] 18 MS.[facility] Repository 03/31/2018/04/01/20 [id number] Sh[place], Ambulatory Jass Jass 18 [facility] Hospital ing:PCURoom: Repository DAM999Rud: 1 03/31/2018 [id number] Sharan, Ambulatory BMSBuilding:[place] [facility] MS.[facility] Repository 03/31/2018 [id number] Ambulatory BMSBuilding:W [place] [facility] Repository 03/31/2018/04/01/20 [id number] Ambulatory BMSBuilding:B [place] 18 MS.[facility] Repository 03/31/2018 [id number] Sharan, Ambulatory BMSBuilding:Mary [place]re[place] MS.CF.[facility] Repository 03/31/2018 [id number] Sharan, Ambulatory BMSBuilding:[facility] [place] [facility] 03/05/2018/03/05/20 [id number] Ambulatory BMSBuilding:Mary Regan 18 MS.[facility] Repository 02/25/2018/02/28/20 [id number] Ambulatory [address] Repository 02/10/2018/02/12/20 [id number] Ambulatory [address] Repository 02/05/2018 [id number] [facility] Repository 01/22/2018/01/23/20 [id number] Ambulatory BMSBuilding:Mary Regan 18 MS.[facility] Repository 01/12/2018 [id number] Ambulatory [facility] Hospital ing:PSN Repository 01/12/2018 [id number] Ambulatory BMSBuilding:W [facility] Repository 01/09/2018/01/10/20 [id number] Ambulatory [address] Repository 01/09/2018/01/13/20 [id number] Ambulatory [address] Repository 01/09/2018 [id number] Ambulatory [facility] Hospital ing:PSN Repository 01/09/2018 [id number] Ambulatory BMSBuilding:W [facility] Repository 01/01/2018/01/03/20 [id number] Ambulatory [address] Repository 12/19/2017/12/20/19 [id number] Ambulatory BMSBuilding:Mary Regan 18 MS.[facility] Hospital Repository 12/02/2017/12/04/19 [id number] Ambulatory [address] Repository 12/02/2017/12/03/19 [id number] Ambulatory [address] Repository 11/12/2017/11/13/19 [id number] Ambulatory [address] Repository 11/04/2017/11/07/19 [id number] Ambulatory [address] Repository 10/30/2017/10/31/19 [id number] Ambulatory BMSBuilding:B [place] 18 MS.[facility] Repository 09/12/2017/09/13/19 [id number] Ambulatory BMSBuilding:B [place] 18 MS.[facility] Repository 09/10/2017/09/12/19 [id number] Ambulatory [address] Repository 09/09/2017 [id number] Ambulatory [facility] Repository 09/01/2017/09/03/19 [id number] Ambulatory [address] Repository 08/29/2017 [id number] Ambulatory BMSBuilding:[place] MS.[facility] Repository 08/18/2017/08/19/19 [id number] Ambulatory [address] Repository 08/18/2017/08/20/19 [id number] Ambulatory [address] Repository 05/07/2017/05/07/19 [id number] Ambulatory [address] Repository 05/02/2017/05/02/20 [id number] Ambulatory [address] Repository 04/29/2017 [id number] Ambulatory [facility] Hospital ing: Repository 04/29/2017/04/29/20 [id number] Ambulatory [address] Repository PAYERS PAYERS ENCOUNTER GUARANTOR PAYER SUBSCRIBER SOURCE 04/14/2018 LAURYN Jha Primary LAURYN Regan [id number] E Insurance:MEDICARE PART RIGGSDOB: [facility] BPolic Number: [id number], [place] [id number] Repository [address]Cyc: (330) Date:2017-09-12 [phone] (HP) 04/14/2018 Secondary LAURYN Regan Insurance:ANTHEMPolicy RIGGSDOB: [facility] Number: [id number] Hospital [id number] Repository Date:8184-23-36[address], [place] [address]XT: 04/14/2018 Tertiary Insurance:SELF NOT [facility]hip[facility] PA[facility] INSURANCEPoly [facility] Number: Effective Hospital Date:2018-04-09 Repository 04/08/2018 LAURYN L Primary Insurance:AETNA LAURYN L Jass [id number] E MCRPolicy Number: RIGGSDOB: [facility] [place] MEBRQYHLEffective [id number], [place] Date:8894-70-59SW BOX Repository 12[address]Hmy: [phone] [id number] [place] [phone] () [address]QW: 04/08/2018 Secondary LAURYN L Jass Insurance:ANTHEMPolicy RIGGSDOB: Community Number: [id number] Hospital [id number] Repository Date:5858-60-42AT [address] [place] [address] 68455EC: 04/08/2018 Tertiary Insurance:SELF NOT GIVENUNK Jass PAY INSURANCEPolicy Community Number: Effective Hospital Date:2018-04-07 Repository 03/31/2018 LAURYN L Primary LAURYN L Jass [id number] [address] Insurance:ANTHEMPolicy [facility]IGGSDOB[facility] Number: [id number], [place] [id number] Repository 222[address]Pfk: (330) Date:7231-87-85YL [phone] () [id number] [place] [address] 66[address]JR: 03/31/2018 Secondary NOT GIVENUNK Jass Insurance:SELF PAY Community INSURANCEPolicy Number: Hospital Effective Repository Date:2018-03-31 03/31/2018 LAURYN L Primary LAURYN L Jass [id number] E Insurance:ANTHEMPolicy [facility]SDOB[facility] Number: [id number], [place] [id number] Repository 254[address]Tbd: (330) Date:9289-87-66YO [phone] () [id number] [place] [address] 10710VV: 03/31/2018 Secondary NOT GIVENUNK Jass Insurance:SELF PAY Community INSURANCEPolicy Number: Hospital Effective Repository Date:2018-03-31 03/31/2018 LAURYN L Primary LAURYN L Jass [id number] E Insurance:ANTHEMPolicy RIGGSDOB: [place] Number: [id number], [place] [id number] Repository 67[address]Uxp: (330) Date:3196-00-67QX [phone] () 338093DWAWDCX, [place] [address]TX: 03/31/2018 Secondary NOT GIVENUNK Jass Insurance:SELF PAY Community INSURANCEPolicy Number: Hospital Effective Repository Date:2018-03-31 03/31/2018 LAURYN L Primary LAURYN L [place] [id number] Insurance:ANTHEMPolicy RIGGSDOB: Community [place] Number: [id number], [place] [id number] Repository [address]Cpz: (330) Date:0413-65-95PW [phone] () 533387XKATMDC, [place] [address]KT: 03/31/2018 Secondary NOT GIVENUNK Jass Insurance:SELF PAY Community INSURANCEPolicy Number: Hospital Effective Repository Date:2018-03-31 03/31/2018 LAURYN L Primary LAURYN L J[place] [id number] [address] Insurance:ANTHEMPolicy RIGGSDOB: Community [place] Number: [id number], [place] [id number] Repository [address]Kfj: (330) Date:9336-74-31BE [phone] () 732553ZRQBFDN, [place] [address]OF: 03/31/2018 Secondary NOT GIVENUNK [place] Insurance:SELF PAY Community INSURANCEPolicy Number: Hospital Effective Repository Date:2018-03-31 03/31/2018 LAURYN L Primary LAURYN L Jass [id number] E Insurance:ANTHEMPolicy RIGGSDOB: Community [place] Number: [id number], [place] [id number] Repository [address]Hli: (330) Date:1348-53-97ZP [phone] () ALEXANDER CASTANEDA [address]ON: 03/31/2018 Secondary NOT GIVENUNK Jass Insurance:SELF PAY Community INSURANCEPolicy Number: Hospital Effective Repository Date:2018-03-31 03/05/2018 LAURYN L Primary LAURYN L [place] [id number] E Insurance:ANTHEMPolicy RIGGSDOB: [place] Number: [id number], [place] [id number] Repository [address]Tfc: (330) Date:3066-67-64YY [phone] () [address] [place] [address] 89[address]KX: 03/05/2018 Secondary NOT GIVENUNK Jass Insurance:SELF PAY Community INSURANCEPolicy Number: Hospital Effective Repository Date:2018-01-22 02/05/2018 LAURYN L Primary LAURYN L [place] [id number] [address] Insurance:ANTHEMPolicy RIGGSDOB: [place] Number: [id number], [place] [id number] Repository [address]Qeu: (330) Date:8248-64-46XC [phone] () 774609VRLKITH, [place] [address]RE: 02/05/2018 Secondary NOT GIVENUNK Jass Insurance:SELF PAY Community INSURANCEPolicy Number: Hospital Effective Repository Date:2018-01-28 01/22/2018 LAURYN L Primary LAURYN L [place] [id number] Insurance:ANTHEMPolicy RIGGSDOB: [place] Number: [id number], [place] [id number] Repository [address]Prf: (330) Date:1566-74-48KW [phone] () 312471IEDYEWV, [place] [address]WP: 01/22/2018 Secondary NOT GIVENUNK Jass Insurance:SELF PAY Community INSURANCEPolicy Number: Hospital Effective Repository Date:2018-01-15 01/12/2018 LAURYN L Primary LAURYN L [place] [id number] [address] Insurance:ANTHEMPolicy RIGGSDOB: [place] Number: [id number], [place] [id number] Repository [address]Dch: (330) Date:3961-98-42CT [phone] () 130[address]KORIYMI, [place] [address]RH: 01/12/2018 Secondary NOT GIVENUNK [place] Insurance:SELF PAY Community INSURANCEPolicy Number: Hospital Effective Repository Date:2017-10-30 01/12/2018 LAURYN L Primary LAURYN L [place] [id number] [address] Insurance:ANTHEMPolicy RIGGSDOB: Community [place] Number: [id number], [place] [id number] Repository [address]Qnp: (330) Date:6447-46-55BH [phone] () 834120LXVSRYY, [place] [address]JY: 01/12/2018 Secondary NOT GIVENUNK Jass Insurance:SELF PAY Community INSURANCEPolicy Number: Hospital Effective Repository Date:2018-01-12 01/09/2018 LAURYN L Primary LAURYN L [place] [id number] E Insurance:ANTHEMPolicy RIGGSDOB: [place] Number: [id number], [place] [id number] Repository [address]Zcx: (330) Date:5732-10-36LX [phone] () [address] [place] [address] [place] [address]NY: 01/09/2018 Secondary NOT GIVENUNK Jass Insurance:SELF PAY Community INSURANCEPolicy Number: Hospital Effective Repository Date:2017-10-30 01/09/2018 LAURYN L Primary LAURYN L J[place] [id number] [address] Insurance:ANTHEMPolicy RIGGSDOB: [place] Number: [id number], [place] [id number] Repository [address]Rih: (330) Date:7433-50-38ZU [phone] () 427741XQNBKHG, [place] [address]WS: 01/09/2018 Secondary NOT GIVENUNK [place] Insurance:SELF PAY Community INSURANCEPolicy Number: Hospital Effective Repository Date:2018-01-09 12/19/2017 LAURYN L Primary LAURYN L [place] [id number] E Insurance:ANTHEMPolicy RIGGSDOB: [place] Number: [id number], [place] [id number] Repository [address]Qfj: (330) Date:4894-82-82XM [phone] () 231755YGJLGMP, [place] [address]KJ: 12/19/2017 Secondary NOT GIVENUNK [place] Insurance:SELF PAY Community INSURANCEPolicy Number: Hospital Effective Repository Date:2017-12-19 10/30/2017 LAURYN L Primary LAURYN L [place] [id number] E Insurance:ANTHEMPolicy RIGGSDOB: Community [place] Number: [id number], [place] [id number] Repository [address]Kst: [phone]) Date:[id number] [phone] () [id number], [place] [address]KL: 10/30/2017 Secondary NOT GIVENUNK Jass Insurance:SELF PAY Community INSURANCEPolicy Number: Hospital Effective Repository Date:2017-10-28 09/12/2017 LAURYN L Primary LAURYN L [place] [id number] E Insurance:ANTHEMPolicy RIGGSDOB: Community [place] Number: [id number], [place] [id number] Repository [address]Cno: [phone]) Date:[id number] [phone] () [id number], [place] [address]VQ: 09/12/2017 Secondary NOT GIVENUNK Jass Insurance:SELF PAY Community INSURANCEPolicy Number: Hospital Effective Repository Date:2017-09-12 09/09/2017 Lauryn L Primary Lauryn L [place] [id number] E Insurance:ANTHEMPolicy RiggsDOB: Community [place] Number: [id number], [place] [id number] Repository [address]Hgr: ([phone]) Date:4631-33-63LY [phone] () [id number], [place] [address]WK: 09/09/2017 Secondary NOT GIVENUNK [place] Insurance:SELF PAY Community INSURANCEPolicy Number: Hospital Effective Repository Date:2017-09-09 08/29/2017 Lauryn L Primary Lauryn L [place] [id number] E Insurance:ANTHEMPolicy RiggsDOB: Community [place] Number: [id number], [place] [id number] Repository [address]Msw: ([phone]) Date:1754-94-06QB [phone] () [id number], [place] [address]XY: 08/29/2017 Secondary NOT GIVENUNK [place] Insurance:SELF PAY Community INSURANCEPolicy Number: Hospital Effective Repository Date:2017-08-29 04/29/2017 Lauryn L Primary Lauryn L [place] [id number] E Insurance:ANTHEMPolicy RiggsDOB: Community [place] Number: [id number], [place] [id number] Repository [address]Qrd: [phone]) Date:9649-44-89CF [phone] () [id number] MONTOYA [address]HW: 04/29/2017 Secondary NOT GIVENUNK Jass Insurance:SELF PAY Community INSURANCEPolicy Number: Hospital Effective Repository Date:2017-04-22
== END 2018-04-01 16:56 | disposition home or self-care (01) ==
LOC: ED 13:43 → PCU 14:45
PROVIDERS: Surgery; Admitting Provider Internal Medicine; Emergency Provider Emergency Medicine; Family Provider Family Medicine; PCP Family Medicine; Referring Provider Internal Medicine; Visit Provider Family Medicine
PROC: 0DJ08ZZ Inspection of Upper Intestinal Tract, Via Natural or Artificial Opening Endoscopic (ICD-10-PCS; CPT 43235; principal; 2018-04-01 11:55)
DX: K92.2 Gastrointestinal hemorrhage, unspecified (principal); I10 Essential (primary) hypertension; E78.5 Hyperlipidemia, unspecified; J98.4 Other disorders of lung; E11.9 Type 2 diabetes mellitus without complications; K21.9 Gastro-esophageal reflux disease without esophagitis; F43.23 Adjustment disorder with mixed anxiety and depressed mood; G47.33 Obstructive sleep apnea (adult) (pediatric); E66.9 Obesity, unspecified; M48.061 Spinal stenosis, lumbar region without neurogenic claudication; Z79.899 Other long term (current) drug therapy; Z79.82 Long term (current) use of aspirin; Z85.828 Personal history of other malignant neoplasm of skin; Z68.36 Body mass index [BMI] 36.0-36.9, adult; Z71.3 Dietary counseling and surveillance; Z79.84 Long term (current) use of oral hypoglycemic drugs; Z87.891 Personal history of nicotine dependence; D33.3 Benign neoplasm of cranial nerves; G47.419 Narcolepsy without cataplexy; G89.29 Other chronic pain
CPT/HCPCS: 43239; 36415; 80048; 80076; 82274; 82962; 83605; 85014; 85018; 85025; 85610; 85730; 86850; 86900; 88305; 88342; 93005; 96361; 96365; 96366; 99218; 99284; J7030; A4216; G0378

== ENCOUNTER → 2019-03-26 12:40 | Outpatient (CLI) | payer MEDICARE, SELFPAY ==
[2017-04-29 10:57] VITALS: BMI 37.4
[2018-04-14 15:45] VITALS: BMI 35.2
--- NOTE | 2019-03-26 12:44 | CT_ITS ---
STUDY: CT CHEST WITHOUT CONTRAST REASON FOR EXAM: Female, 69 years old. Follow-up lung nodules. RADIATION DOSAGE (If Supplied By Facility): CTDIvol = ( 15.80 ) mGy, DLP = ( 588.30 ) mGycm TECHNIQUE: Transaxial imaging was performed without the administration of intravenous contrast material. Multiplanar coronal and sagittal images were reformatted. Individualized dose optimization techniques were used for this CT. COMPARISON: None. FINDINGS: The lungs are normally expanded. The right hemithorax is clear. Within the left lower lobe there are multiple small calcified granulomas, largest measuring 8 mm. There is minimal atelectasis within the lingular lobe. There is a bulla at the left lower lobe measuring 1.8 cm. Remainder of the left lung parenchyma is normal. There is no demonstrated pleural abnormality. There is mild pericardial effusion. Otherwise normal heart and pericardium. There are multiple calcified lymph nodes within the mediastinum consistent with previous granulomatous infection. Otherwise normal mediastinum. Normal hilar regions. Normal unenhanced pulmonary arteries. There is atherosclerotic calcification of the aortic arch with tortuosity and elongation of the aortic arch and descending thoracic aorta. There are multi-level degenerative changes of the thoracic spine. There is a small low-attenuation structure within the posterior aspect of the right liver lobe measuring 0.73 cm, most compatible with benign etiology in the absence of known neoplasm. There is mild hiatal hernia. Otherwise there is no demonstrated abnormality of the visualized upper abdomen. CT/Chest without Contrast IMPRESSION: Multiple left lower lobe calcified granulomas, stable in size in the interval with calcified lymph nodes within the mediastinum, combination of findings consistent with previous granulomatous infection. Mild pericardial effusion, stable. No lymphadenopathy or solid lesion seen. Mild hiatal hernia. Electronically Signed: Kia Huerta MD at 2:14 EST , Service support ,
== END ==
PROVIDERS: Family Provider Family Medicine; PCP Family Medicine; Referring Provider Internal Medicine Critical Care Medicine; Visit Provider Internal Medicine Critical Care Medicine
DX: R91.1 Solitary pulmonary nodule (principal)
CPT/HCPCS: 71250

== ENCOUNTER → 2019-05-25 13:50 | Outpatient (CLI) | payer MEDICARE, SELFPAY ==
[2017-04-29 10:57] VITALS: BMI 37.4
[2019-04-19 10:04] VITALS: BMI 34.7
--- NOTE | 2019-05-25 13:52 | ECHOCS_ITS ---
Reason For Study: Dyspnea/SOB Procedure This was a 2D Doppler, Color Flow transthoracic echocardiogram. The study was technically difficult. Contrast injection was performed. Exam performed in department. Left Ventricle Normal LV size. Mild concentric left ventricular hypertrophy. Left ventricular systolic function is normal. Stage 1 diastolic dysfunction. No regional wall motion abnormalities noted. Right Ventricle Normal RV size. Normal systolic function. Atria Normal left atrium. Normal right atrium. Mitral Valve Normal mitral valve. Tricuspid Valve Normal tricuspid valve. Aortic Valve Trisinus/trileaflet aortic valve. Pulmonic Valve Normal pulmonic valve. Great Vessels Normal aortic root. The pulmonary artery is normal size. Normal inferior vena cava. Pericardium/Pleural Small pericardial effusion. There are no echocardiographic indications of cardiac tamponade. Medication 22 gauge I.V. with prn adaptor inserted into right arm. Diluted definity 4ml given slow IV push to enhance endocardial definition. MMode/2D Measurements & Calculations LVIDd: 5.0 cm IVSd: 1.4 cm LVOT diam: 2.0 cm LVIDs: 2.8 cm LVPWd: 1.3 cm RVDd: 3.5 cm FS: 42.6 % LVOT area: 3.2 cm2 Ao root diam: 3.3 cm LAV(MOD-sp4): 51.3 ml LA A4 area: 18.5 cm2 LA dimension: 4.4 cm RA A4 area: 13.2 cm2 Time Measurements MV dec time: 0.26 sec Doppler Measurements & Calculations MV E max efra: 86.4 cm/sec Lat Peak E' Efra: 6.5 cm/sec Med Peak E' Efra: 5.4 cm/sec MV A max efra: 106.8 cm/sec E/E' lat: 13.3 E/E' med: 15.9 MV E/A: 0.81 MV V2 max: 107.9 cm/sec MV P1/2t max efra: 99.2 cm/sec Ao V2 max: 159.2 cm/sec MV max P.7 mmHg MV P1/2t: 77.8 msec Ao max P.1 mmHg MV V2 mean: 60.3 cm/sec MV dec slope: 373.5 cm/sec2 Ao V2 mean: 99.0 cm/sec MV mean P.7 mmHg MVA(P1/2t): 2.8 cm2 Ao mean P.6 mmHg MV V2 VTI: 34.9 cm Ao V2 VTI: 30.6 cm MVA(VTI): 2.5 cm2 MIREYA(I,D): 2.9 cm2 MIREYA(V,D): 2.7 cm2 LV V1 max: 132.2 cm/sec SV(LVOT): 87.4 ml PA V2 max: 109.8 cm/sec LV V1 max P.0 mmHg LV V1 mean P.2 mmHg LV V1 mean: 79.9 cm/sec LV V1 VTI: 27.2 cm PI end-d efra: 90.5 cm/sec Interpretation Summary Normal LV size. Mild concentric left ventricular hypertrophy. Left ventricular systolic function is normal. Stage 1 diastolic dysfunction. Small pericardial effusion. There are no echocardiographic indications of cardiac tamponade. Compared to prior study, there is no significant change. Ordering Physician: Kevin Wu Referring Physician: Rhett Reece Performed By: Travon Rosas RCS
== END ==
PROVIDERS: Family Provider Family Medicine; PCP Family Medicine; Referring Provider Nurse Practitioner Family; Visit Provider Nurse Practitioner Family
DX: R06.09 Other forms of dyspnea (principal); I31.3 Pericardial effusion (noninflammatory); I10 Essential (primary) hypertension
CPT/HCPCS: 93306; Q9957; A4216; C8929

== ENCOUNTER 2022-11-04 14:00 | Outpatient (RCR) | payer MEDICARE, SELFPAY ==
[2017-04-29 10:57] VITALS: BMI 37.4
--- NOTE | 2022-09-23 17:50 | HP.PTEVAL_ITS ---
Patient's Visit Information ANNELISE BRUMFIELD is a 72 year old F referred to Physical Therapy by Dr. Aundrea Cantu MD with a diagnosis of MIXED URINARY INCONTINENCE. Date of Evaluation: 09/23/22 Physical Therapist: Ngozi Stewart PT, Cert MDT - Visit Plan Frequency: 1x/Week Duration: 8-12 WKS Plan: PF THERAPY FOR STRENGTHENING, LENGTHENING/RELAXATION AND ENDURANCE TRAINING. PELVIC FLOOR STRENGTHENING. URINARY RETENTION, URGE AND FREQUENCY EDUCATION. HEALTHY BLADDER HABIT EDUCATION. TRAINING IN COORDINATION OF PELVIC FLOOR MUSCULATURE WITH HIP AND CORE (TRANSVERSE ABDOMINUS) MUSCULATURE. POSTURE CORRECTION/STRENGTHENING. CORE STRENGTHENING. NACHO LE ROM, STRETCHING AND STRENGTHENING. TRAINING IN ABDOMINAL CAVITY PRESSURE MGMT WITH ADL'S. - Subjective Work/Leisure: RETIRED. LIVES ALONE. DRIVES. Present symptoms: URINARY LEAKING SEVERAL TIMES A DAY. WEARING THICKEST PADS AVAILABLE MULTIPLE TIMES A DAY. Present since: FEW YEARS. Is it getting better, worse or staying the same: WORSENING. Commenced as a result of: NO APPARENT REASON. Worse: WALKING SHORT DISTANCES, BENDING OVER, GETTING OUT OF BED IN THE MORNING. Better: NOTHING. Disturbed sleep: GETTING UP TO URINATE ABOUT 1 TIME A NIGHT. Previous history/Previous treatment: NO PELVIC OR ABDOMINAL SURGERIES. Treatment this episode: UNSURE BUT THINKS OLE STEVENSON PRESCRIBES HER SOMETHING. Coughing/sneezing/straining: POSITIVE FOR UI. Gait: INDEP. NO AD USE. How long can you delay the need to urinate: NOT AT ALL. Prolapse (Falling out feeling): YES - ALL DAY. Frequency of Urination: 9-12 TIMES A DAY. Ability to stop urine flow: NO. Ability to initiate urine stream: YES. Dyspareunia: NO. Bowel Incontinence: NO. Unexplained weight loss: NO. Imaging: NONE. OTHER: STATES DR. CANTU HAS NOT RECOMMENDED SURGERY AT THIS TIME. - Objective Sitting/Standing Posture: POOR. Active Correction of posture: NE - UNABLE TO MAINTAIN. Other Observations: INDEP SLOW GAIT INTO PT WITHOUT ANY LOB OR AD'S. Sensory deficit: NACHO LE LIGHT TOUCH SENSATION GROSSLY INTACT AND SYMMETRICAL. ROM deficit: TIGHT NACHO HIP ROTATORS, HIP ADDUCTORS, HS'S AND GASTROC SOLEUS COMPLEX'S. Motor deficit: NACHO LE'S 5/5 WITH MMT'ING EXCEPT HIPS 4/5. Dural Signs: NEGATIVE NACHO LE'S. Lumbar mvmt loss: flex - MIN TO MOD. ext - NICK. R SG - NICK. L SG - MOD. PATIENT DENIES PAIN WTIH LUMBAR ROM TESTING ALL PLANES. Core strength: POOR. FUNCTIONAL SCREEN: Incontinence Impact Questionnaire Score: 15. Urogenital Distress Inventory Score: 21 - Goals Goal 1:: DECREASE URINARY LEAKAGE EPISODES TO TWO OR LESS PER DAY Goal 2:: PATIENT WILL SUCCESSFULLY DELAY VOIDING FOR 10 MINUTES WHEN URGENCY OCCURS Goal 3:: PATIENT WILL DEMONSTRATE/COMMUNICATE 10 CONSISTENT AND CONSECUTIVE 10 SECOND PELVIC FLOOR MUSCLE CONTRACTIONS TO DEMONSTRATE IMPROVED PELVIC FLOOR ENDURANCE. Goal 4:: DEVELOP HEALTHY FLUID INTAKE HABITS WITH FLUID INTAKE OF ? BODY WEIGHT IN OUNCES PER DAY AND 2/3 BEING WATER. NORMALIZE VOIDING FREQUENCEY TO EVERY 3- 4 HOURS. Goal 5:: PATIENT WILL BE INDEP WITH A HEP/HOME INSTRUCTIONS FOR CONTINUED IMPROVEMENT ONCE FORMAL PHYSICAL THERAPY CONCLUDES. - Anticipated Interventions Patient/Client Instruction: Educate patient on: Condition, Plan of Care, Risk Factors For the Purpose of:: To improve self management Therapeutic Exercise to Include: Strength training, Flexibilty training, Neuromotor development For the Purpose of:: To improve muscle performance and motor function, To increase tolerance to activity/condition/position, To improve ability of ph ysical actions for home/community/work/leisure Thank you for the opportunity to evaluate your patient. For Medicare and Medicare HMO plans, please review the plan of care and approve it. It will need to be FAXED BACK to us at [phone] for Medicare purposes. For Medicare only, by signing this I certify the plan of care. Please let me know if there are questions or concerns regarding this plan of care. Physician Signature: Date:
== END 2022-11-04 19:00 | disposition home or self-care (01) ==
LOC: PT 14:00
PROVIDERS: PCP Family Medicine; Referring Provider Urology; Visit Provider Urology
DX: N39.46 Mixed incontinence (principal)
CPT/HCPCS: 97162; 97530

== ENCOUNTER 2023-07-12 19:15 | Emergency (ER) | payer MEDICARE, SELFPAY ==
[2017-04-29 10:57] VITALS: BMI 37.4
[2023-07-12 19:18] VITALS: BP 117/54; PULSE 73; RESP 18; TEMP 36.1; O2SAT 98; BMI 29.6
--- NOTE | 2023-07-12 20:31 | EDS_ITS ---
HPI History of Present Illness Chief Complaint: Hyperglycemia Detail of Chief Complaint: Elevated blood sugars Informant: patient Narrative Narrative: Patient presents with elevated blood sugars that concerned her today. Patient states that she is currently taking Jardiance which she has been on for several months and not taking any metformin or other diabetic medications. Patient states that she has had a cough and some upper respiratory symptoms for about 2 weeks. She describes urinary frequency but no dysuria or hematuria. Patient states she drinks a lot of water. Patient tells me she has a bad memory but she has documentations in a journal of her blood pressures which she checks 3-4 times a day. She normally runs in the 200s. Today she had a reading over 400 so she comes in for evaluation. [facility] Medical History (Updated 07/12/23 @ 22:[address] Kevin Schaffer, ) Abnormal findings on diagnostic imaging of heart and coronary circulation Acoustic neuroma Adjustment disorder with mixed anxiety and depressed mood Aortic valve sclerosis Bacterial sinusitis Dyspnea on exertion Encounter for long-term current use of high risk medication Esophageal reflux Essential (primary) hypertension Hemoptysis Hyperlipidemia Inflammatory polyarthritis Insomnia Non-rheumatic tricuspid valve insufficiency Nonrheumatic mitral valve insufficiency Obesity Obstructive sleep apnea Pericardial effusion (noninflammatory) Primary osteoarthritis of left knee Restrictive lung disease Skin cancer Sleep apnea Spinal stenosis of lumbar region Type 2 diabetes mellitus Upper GI bleed Home Medications armodafinil 250 mg tablet 250 mg PO DAILY PRN sleepiness 09/09/17 [History Last Taken Unknown] hydrochlorothiazide 25 mg tablet 25 mg PO DAILY diuretic/hypertension 09/09/17 [History Last Taken 03/31/18] losartan 100 mg tablet 100 mg PO DAILY blood pressure 09/09/17 [History Last Taken 03/31/18] trazodone 50 mg tablet 50 mg PO QHS sleep 09/09/17 [History Last Taken 03/30/18] atenolol 50 mg tablet 75 mg PO BID blood pressure 12/14/19 [History Last Taken Unknown] fluoxetine 20 mg capsule 40 mg PO DAILY mental health 12/14/19 [History Last Taken Unknown] gabapentin 100 mg capsule 200 mg PO QHS nerve pain 12/14/19 [History Last Taken Unknown] metformin 500 mg tablet 1,000 mg PO BID diabetes 12/14/19 [History Last Taken Unknown] pantoprazole 40 mg tablet,delayed release 40 mg PO BID 12/14/19 [History Last Taken Unknown] spironolactone 25 mg tablet 25 mg PO DAILY 12/14/19 [History Last Taken Unknown] metformin 500 mg tablet 500 mg PO BID #60 tabs 07/12/23 [Rx Last Taken Unknown] Allergy/AdvReac Type Severity Reaction Status Date / Time amlodipine AdvReac Severe Unknown Verified 12/12/20 13:14 nickel AdvReac Severe Unknown Verified 12/12/20 13:14 lisinopril AdvReac Mild Other - Verified 12/12/20 13:14 cough Family History Brother CAD (coronary artery disease) Cancer Mother CVA (cerebral vascular accident) Father Alzheimers disease Grandmother Cancer Diabetes Surgical History H/O brain surgery H/O foot surgery history of eye implant Social History household members: none housing: house current occupational status: employed current occupation: [employer] pets and animals: Yes pets and animals: dog(s) Smoking Status: Never smoker how long ago did patient quit smokin second hand exposure: Yes alcohol intake: never substance use type: does not use caffeine: Yes Type: coffee Number of servings: 2 what type of physical activity do you participate in: none ROS ROS ED ROS Narrative Elevated blood sugar Review of Systems ROS Unobtainable: other Constitutional Constitutional ED: Reports lethargy; Denies chills, fever(s), sweats or weight loss Eyes Eyes: Denies blurry vision, change in vision or diplopia ENT ENT ED: Denies rhinorrhea or sore throat Cardiovascular Cardiovascular: Denies chest pain, orthopnea or racing heartbeat Respiratory/Chest Respiratory/Chest: Reports cough; Denies dyspnea, dyspnea on exertion, orthopnea or sputum Gastrointestinal Gastrointestinal: Denies abdominal pain, diarrhea, nausea or vomiting Genitourinary Genitourinary ED: Reports urinary frequency; Denies dysuria or hematuria Musculoskeletal Musculoskeletal: Denies arthralgias, back pain, myalgias or neck pain Integumentary Denies abscess, Abrasions or rash Neurologic Neurologic: Denies headache(s) or weakness Psychiatric Psychiatric: Denies anxiety, depression or suicidal thoughts Endocrine Endocrinology: Denies polydipsia, polyphagia or polyuria Hematologic/Lymphatic Hematologic/Lymphatic: Denies easy bleeding, easy bruising or lymphadenopathy Allergic/Immunologic Allergic/Immunologic ED: Denies mouth swelling, tongue swelling or urticaria EXAM Physical Exam Const Vital Signs: 07/12/23 19:18 07/12/23 20:53 07/12/23 21:00 Temperature 97 F L Temperature Source Temporal Pulse Rate 73 67 Respiratory Rate 18 14 Respiratory Effort Short of Breath Respiratory Pattern Normal Blood Pressure 117/54 L 118/63 Blood Pressure Mean 75 81 Pulse Ox 98 96 Oxygen Delivery Method Room Air Room Air 07/12/23 22:43 Temperature 98.4 F Temperature Source Pulse Rate 67 Respiratory Rate 18 Respiratory Effort Respiratory Pattern Blood Pressure 110/55 L Blood Pressure Mean 73 Pulse Ox 95 Oxygen Delivery Method Positive well nourished and well developed General Appearance ED: well developed and NAD HEENT Reports TM's clear and moist mucous membranes normocephalic and atraumatic; Negative for trauma or tenderness Tympanic Membrane ED: Yes TM's clear Eyes PERRL and EOMs intact bilaterally General Eye ED: Negative for pale conjunctiva or scleral icterus Neck no lymphadenopathy, supple and no JVD General: Negative for tenderness Chest Wall inspection of chest normal and palpation of chest normal Chest: Negative for tenderness Resp normal respiratory effort and clear to auscultation bilaterally Effort and Inspection: Negative for respiratory distress or pain with movement Auscultation: Negative for rhonchi, wheezes or diminished lung sounds Cardio regular rate, regular rhythm, S1 normal heart sound, S2 normal heart sound and no murmurs Peripheral Pulses: pulses 2+ throughout GI normal to inspection, nondistended, normoactive bowel sounds, soft to palpation, non-tender, non-distended and no masses Back/Spine no CVA tenderness and no thoracic nor lumbar tenderness Extremity normal to inspection General Extremety ED: Negative for edema General Extremity: Negative for edema Neuro oriented x3, CN's II-XII intact bilaterally, no sensory deficits noted and gait normal Sensorium / Orientation: awake, alert, oriented to person, oriented to place and oriented to time Motor Exam: strength 5/5 throughout and strength abnormal Psych mental status grossly normal Skin no rashes or lesions noted and no wounds MDM MDM MDM Narrative Medical decision making narrative: Patient presents with elevated blood sugars. She had upper respiratory symptoms for a couple weeks. Clinically she looks well. CBC with differential white count 12.4 with hemoglobin 15.2 and platelet count of 202. Chemistries unremarkable. BUN 28 and creatinine 1.09. Glucose was elevated 306. Urinalysis was negative for infection but she had 1000 glucose. Discussed results with patient and daughter. Also discussed with physician covering for her nurse practitioner Dr. Ponce who recommended patient follow-up with her primary care physician. Also recommended we start metformin back at 500 mg twice a day and she can continue with Jardiance. Patient and daughter comfortable with plan. Will discharge to home in stable condition. I did give her first dose of metformin in the emergency department. Lab Data Attestation: I reviewed the patient's lab results. Labs: Laboratory Results - last 24 hr 07/12/23 07/12/23 20:48 21:52 WBC 12.4 H RBC 4.95 Hgb 15.2 H Hct 44.0 MCV 88.9 MCH 30.7 MCHC 34.5 RDW Std Deviation 45.9 H RDW Coeff of Gracilea 14.2 Plt Count 202 MPV 12.2 H Immature Gran % (Auto) 0.600 Neut % (Auto) 58.1 Lymph % (Auto) 30.0 Harper % (Auto) 8.7 Eos % (Auto) 1.8 Baso % (Auto) 0.8 Absolute Neuts (auto) 7.2 Absolute Lymphs (auto) 3.70 Nucleated RBC % 0 Sodium 135 L Potassium 3.6 Chloride 106 Carbon Dioxide 21.0 Anion Gap 8 BUN 28 H Creatinine 1.09 H Estim Creat Clear Calc 46.81 Est GFR (MDRD) Af Amer 63 Est GFR (MDRD) Non-Af 52 L BUN/Creatinine Ratio 25.7 H Glucose 306 H Calcium 9.5 Urine Color Yellow Urine Clarity Clear Urine pH 5.0 Ur Specific [place] 1.015 Urine Protein Negative Urine Glucose (UA) 1000 H Urine Ketones Negative Urine Occult Blood Negative Urine Nitrite Negative Urine Bilirubin Negative Urine Urobilinogen Normal Ur Leukocyte Esterase Negative Urine RBC 0 SEEN Urine WBC 0 SEEN Ur Squamous Epith Cells 0 SEEN Urine Bacteria 0 SEEN Urine Mucus 0 SEEN Radiography Diagnostic Testing: Clinical Impression(s) from Imaging Studies Chest X-Ray 07/12/23 21:01 IMPRESSION: Normal x-ray examination of the chest. Electronically Signed: Alejandro Giordano MD at 21:56 EST , Discharge Plan Triage Chief Complaint: Hyperglycemia ED Provider: Kevin Schaffer Dx/Rx/DC Orders Clinical Impression: Acute hyperglycemia Instructions: ED Diabetic Hyperglycemia Prescriptions: New metformin 500 mg tablet 500 mg PO BID Qty: 60 0RF No Action hydrochlorothiazide 25 mg tablet 25 mg PO DAILY losartan 100 mg tablet 100 mg PO DAILY armodafinil 250 mg tablet 250 mg PO DAILY PRN (Reason: sleepiness) trazodone 50 mg tablet 50 mg PO QHS fluoxetine 20 mg capsule 40 mg PO DAILY atenolol 50 mg tablet 75 mg PO BID gabapentin 100 mg capsule 200 mg PO QHS metformin 500 mg tablet 1,000 mg PO BID pantoprazole 40 mg tablet,delayed release (DR/EC) 40 mg PO BID spironolactone 25 mg tablet 25 mg PO DAILY Patient Comments: TAKE 1 TABLET BY MOUTH EVERY DAY Primary Care Provider: Rhett Reece Referrals: Rhett Reece MD [Primary Care Provider] - 3-5 Days Disposition Disposition: Home, Self Care Discharge Date/Time: 07/12/23 22:49
--- OUTSIDE RECORDS SUMMARY | 2023-07-12 20:38 | XMS RPT_ITS | CCD ---
Author Name Unknown Address [address] [facility] [facility], [place] [address] [place] [address] Organization [facility] Care Team Providers Care Forming Fixer Name Role Phone Darius Black PA-C Primary Care Provider Darius BLACK Primary Care Unavailable BLACKDarius Referring Unavailable BLACKDarius Primary Care Unavailable BLACKDarius Attending Unavailable Darius BLACK Primary Care Unavailable MANDEEP ÁLVAREZ Attending Unavailable WAYNE, Darius FOWLER Primary Care Unavailable BLACKDarius Referring Unavailable BLACK, Darius FOWLER Attending Unavailable BLACK, Darius FOLWER Primary Care Unavailable BLACKDarius Referring Unavailable BLACK, Darius FOWLER Primary Care Unavailable Darius BLACK Referring Unavailable PEYTON HOLMAN Referring Unavailable BLACK, Darius FOWLER Primary Care Unavailable DAVID EMMANUEL Attending Unavailable BLACK, Darius FOWLER Primary Care Unavailable BLACKDarius Attending Unavailable Darisu BLACK Primary Care Unavailable Darius BLACK Primary Care Unavailable MANDEEP ÁLVAREZ Referring Unavailable MANDEEP ÁLVAREZ Attending Unavailable Allergies Allergy Classification Reported Allergen(s) Allergy Type Date of Onset Reaction(s) Facility (20 sources) amLODIPine; Translations: [AMLODIPINE] Drug Allergy 2 Swelling [facility] (20 sources) Lisinopril; Translations: [LISINOPRIL] Drug Allergy 2 Cough [facility] (20 sources) nickel; Translations: [NICKEL] Drug Allergy 7 Rash, Itching [facility] Work Phone: (20 sources) Nitrofurantoin; Translations: [NITROFURANTOIN ] Drug Allergy 0 Rash [facility] Work Phone: (20 sources) metal [Other] Propensity to adverse reactions 7 Rash, Itching [facility] Work Phone: (1 source) OTHER; Translations: [OTHER] Propensity to adverse reactions (disorder) 7 [facility] Repository Medications Current Medications Medication Drug Class(es) Dates Sig (Normalized) Sig (Original) gabapentin 300 mg oral capsule (20 sources) Anti-epileptic Agent Start: 06-12-2021 End: 08-16-2023 take 1 capsule by mouth three times daily gabapentin (NEURONTIN) 300 mg capsule Take 1 capsule by mouth three times a day for 180 days. 180 capsule 3 02/17/2023 08/16/2023 Active Completed/Discontinued Medications Medication Drug Class(es) Dates Sig (Normalized) Sig (Original) [id number] 200 actuat albuterol 0.09 mg/actuat metered dose inhaler (20 sources) beta2-Adrenergic Agonist Start: 01-29-2022 End: 03-04-2023 take 2 puff(s) by inhalation every four hours as needed for wheezing albuterol HFA (PROVENTIL HFA, VENTOLIN HFA) 90 mcg/actuation inhaler INHALE 2 PUFFS INSTRUCTED EVERY 4 HOURS NEEDED FOR WHEEZING/SHORTNES S OF BREATH. 6.7 Each 5 03/04/2023 Active Problems Active Problems Problem Classification Problem Date Documented Da te Episodic/Chronic Adjustment disorders (20 sources) Adjustment disorder with mixed anxiety and depressed mood; Translations: [Adjustment disorder with mixed anxiety and depressed mood] Onset: 6 05-23-2015 Chronic Chronic obstructive pulmonary disease and bronchiectasis (20 sources) Asthma-chronic obstructive pulmonary disease overlap syndrome; Translations: [Chronic obstructive pulmonary disease, unspecified] Onset: 8 11-04-2017 Chronic Congestive heart failure; nonhypertensive (20 sources) Chronic diastolic heart failure; Translations: [Chronic diastolic (congestive) heart failure] Onset: 2 Chronic Diabetes mellitus with complications (5 sources) Polyneuropathy due to type 2 diabetes mellitus; Translations: [Type 2 diabetes mellitus with diabetic polyneuropathy] Chronic Diabetes mellitus without complication (20 sources) Type 2 diabetes mellitus without complication; Translations: [Type 2 diabetes mellitus without complications] Onset: 3 04-20-2015 Chronic Diseases of mouth; excluding dental (1 source) Burning mouth syndrome ; Translations: [Glossodynia] Episodic Disorders of lipid metabolism (20 sources) Hyperlipidemia; Translations: [Hyperlipidemia, unspecified] Onset: 0 04-09-2010 Chronic Esophageal disorders (20 sources) Gastroesophageal reflux disease; Translations: [Gastro-esophageal reflux disease without esophagitis] Onset: 6 10-09-2005 Chronic Essential hypertension (20 sources) Benign essential hypertension; Translations: [Essential (primary) hypertension] Onset: 6 10-09-2005 Chronic Gastrointestinal hemorrhage (3 sources) Gastrointestinal hemorrhage; Translations: [Gastrointestinal hemorrhage, unspecified] Episodic Genitourinary symptoms and ill-defined conditions (2 sources) Urge incontinence of urine; Translations: [Urge incontinence] Chronic Heart valve disorders (20 sources) Aortic valve sclerosis; Translations: [Other nonrheumatic aortic valve disorders] Onset: 7 01-13-2017 Chronic Hypertension with complications and secondary hypertension (4 sources) Hypertensive heart disease with congestive heart failure; Translations: [Hypertensive heart disease with heart failure] Onset: 3 Chronic Immunizations and screening for infectious disease (3 sources) Vaccination needed; Translations: [Encounter for immunization] Episodic Malaise and fatigue (1 source) Fatigue; Translations: [Other fatigue] Episodic Mycoses (5 sources) Onychomycosis; Translations: [Tinea unguium] Episodic Noninfectious gastroenteritis (3 sources) Chronic diarrhea; Translations: [Noninfective gastroenteritis and colitis, unspecified] Episodic Osteoarthritis (20 sources) Osteoarthritis of left knee joint; Translations: [Unilateral primary osteoarthritis, left knee] Onset: 5 01-30-2015 Chronic Other aftercare (1 source) Drug therapy finding; Translations: [Other custodial (current) drug therapy] Episodic Other connective tissue disease (5 sources) Pain of toe of left foot; Translations: [Pain in left toe(s)] Episodic Other connective tissue disease (5 sources) Pain of toe of right foot; Translations: [Pain in right toe(s)] Episodic Other diseases of bladder and urethra (5 sources) Overactive bladder; Translations: [Overactive bladder] Chronic Other ear and sense organ disorders (20 sources) Hearing loss; Translations: [Unspecified hearing loss, right ear] Onset: 1 02-19-2021 Chronic Other lower respiratory disease (3 sources) Dyspnea; Translations: [Shortness of breath] Episodic Other lower respiratory disease (3 sources) Multiple nodules of lung; Translations: [Other nonspecific abnormal finding of lung field] Episodic Other lower respiratory disease (7 sources) Disorder of lung; Translations: [Other disorders of lung] Onset: 3 Episodic Other nutritional; endocrine; and metabolic disorders (20 sources) Obese class I; Translations: [Obesity, unspecified] Onset: 6 04-04-2016 Chronic Other nutritional; endocrine; and metabolic disorders (5 sources) Hypomagnesemia; Translations: [Hypomagnesemia] Chronic Other nutritional; endocrine; and metabolic disorders (2 sources) Obesity; Translations: [Other obesity due to excess calories] Chronic Other nutritional; endocrine; and metabolic disorders (1 source) Obesity, unspecified; Translations: [Obesity (BMI 30.0-34.9)] Onset: 6 Chronic Other nutritional; endocrine; and metabolic disorders (1 source) Hypomagnesemia; Translations: [Hypomagnesemia] Onset: 3 Chronic Other screening for suspected conditions (not mental disorders or infectious disease) (7 sources) Hormone level - finding; Translations: [Other specified abnormal findings of blood chemistry] Onset: 3 Episodic Other skin disorders (3 sources) Keratosis; Translations: [Epidermal thickening, unspecified] Episodic Residual codes; unclassified (20 sources) Sleep apnea; Translations: [Sleep apnea, unspecified] Onset: 1 11-04-2017 Chronic Residual codes; unclassified (1 source) Sleep apnea, unspecified; Translations: [Sleep apnea, unspecified type] Onset: 8 Chronic Residual codes; unclassified (2 sources) At risk of coronary heart disease ; Translations: [Other specified personal risk factors, not elsewhere classified] Episodic Residual codes; unclassified (2 sources) Postmenopausal state; Translations: [Asymptomatic menopausal state] Episodic Residual codes; unclassified (2 sources) Edema; Translations: [Edema, unspecified] Episodic Rheumatoid arthritis and related disease (20 sources) Inflammatory polyarthropathy; Translations: [Inflammatory polyarthropathy] Onset: 11-04-2017 Chronic Past or Other Problems Problem Classification Problem Date Documented Da te Episodic/Chronic Other lower respiratory disease (20 sources) Nodule of lung; Translations: [Solitary pulmonary nodule] Onset: 06-16-2019 06-16-2019 Episodic Other lower respiratory disease (1 source) Other disorders of lung; Translations: [Small airways disease] Onset: 02-16-2023 Episodic Other lower respiratory disease (1 source) Solitary pulmonary nodule; Translations: [Lung nodule] Onset: 12-10-2021 Episodic Cat-; endo-; and myocarditis; cardiomyopathy (except that caused by tuberculosis or sexually transmitted disease) (10 sources) Pericardial effusion; Translations: [Pericardial effusion (noninflammatory)] Onset: 02-17-2023 Episodic Residual codes; unclassified (20 sources) Insomnia; Translations: [Insomnia, unspecified] Onset: 10-09-2005 01-21-2017 Episodic Residual codes; unclassified (20 sources) Family history of ischemic heart disease; Translations: [Family history of ischemic heart disease and other diseases of the circulatory system] Onset: 01-13-2017 11-04-2017 Episodic Residual codes; unclassified (1 source) Insomnia, unspecified; Translations: [Insomnia, unspecified type] Onset: 01-21-2017 Episodic Spondylosis; intervertebral disc disorders; other back problems (20 sources) Spinal stenosis of lumbar region; Translations: [Spinal stenosis, lumbar region without neurogenic claudication] Onset: 09-09-2013 09-09-2013 Episodic Results Test Name Value Interpretation Reference Range Facil ity Vital Signs Date Time Vital Sign Value Performing Clinician Miguel kay 02-17-2023 13:07-0400 Body weight 79.38 kg NA Black PA-C Work Phone: [facility] 02-17-2023 13:07-0400 Diastolic blood pressure 62 mm[Hg] NA Black PA-C Work Phone: [facility] 02-17-2023 13:07-0400 Heart rate 75 /min NA Black PA-C Work Phone: [facility] 02-17-2023 13:07-0400 Respiratory rate 16 /min NA Black PA-C Work Phone: [facility] 02-17-2023 13:07-0400 SaO2% (BldA) [Mass fraction] 96 % NA Black PA-C Work Phone: [facility] 02-17-2023 13:07-0400 Systolic blood pressure 128 mm[Hg] NA Black PA-C Work Phone: [facility] 08-08-2022 13:23-0400 Body weight 82.56 kg NA Black PA-C Work Phone: [facility] 08-08-2022 13:23-0400 Diastolic blood pressure 66 mm[Hg] NA Black PA-C Work Phone: [facility] 08-08-2022 13:23-0400 Heart rate 76 /min NA Black PA-C Work Phone: [facility] 08-08-2022 13:23-0400 Respiratory rate 14 /min NA Black PA-C Work Phone: [facility] 08-08-2022 13:23-0400 SaO2% (BldA) [Mass fraction] 97 % NA Black PA-C Work Phone: [facility] 08-08-2022 13:23-0400 Systolic blood pressure 134 mm[Hg] NA Black PA-C Work Phone: [facility] 05-02-2022 11:20-0500 Body weight 84.37 kg Demetrice Dunlap MD Work Phone: [facility] 05-02-2022 11:20-0500 Diastolic blood pressure 80 mm[Hg] Demetrice Dunlap MD Work Phone: [facility] 05-02-2022 11:20-0500 Heart rate 86 /min Demetrice Dunlap MD Work Phone: [facility] 05-02-2022 11:20-0500 Respiratory rate 15 /min Demetrice Dunlap MD Work Phone: [facility] 05-02-2022 11:20-0500 SaO2% (BldA) [Mass fraction] 94 % Demetrice Dunlap MD Work Phone: [facility] 05-02-2022 11:20-0500 Systolic blood pressure 142 mm[Hg] Demetrice Dunlap MD Work Phone: [facility] 02-07-2022 13:23-0400 Body weight 86.18 kg NA Black PA-C Work Phone: [facility] 02-07-2022 13:23-0400 Diastolic blood pressure 70 mm[Hg] NA Black PA-C Work Phone: [facility] 02-07-2022 13:23-0400 Heart rate 79 /min NA Black PA-C Work Phone: [facility] 02-07-2022 13:23-0400 Respiratory rate 16 /min NA Black PA-C Work Phone: [facility] 02-07-2022 13:23-0400 SaO2% (BldA) [Mass fraction] 96 % NA Black PA-C Work Phone: [facility] 02-07-2022 13:23-0400 Systolic blood pressure 132 mm[Hg] NA Black PA-C Work Phone: [facility] 01-29-2022 10:53-0400 Body weight 85.73 kg Demetrice Dunlap MD Work Phone: [facility] 01-29-2022 10:53-0400 Diastolic blood pressure 80 mm[Hg] Demetrice Dunlap MD Work Phone: [facility] 01-29-2022 10:53-0400 Heart rate 74 /min Demetrice Dunlap MD Work Phone: [facility] 01-29-2022 10:53-0400 Respiratory rate 14 /min Demetrice Dunlap MD Work Phone: [facility] 01-29-2022 10:53-0400 SaO2% (BldA) [Mass fraction] 95 % Demetrice Dunlap MD Work Phone: [facility] 01-29-2022 10:53-0400 Systolic blood pressure 130 mm[Hg] Demetrice Dunlap MD Work Phone: [facility] 01-02-2022 14:10-0400 Diastolic blood pressure 76 mm[Hg] Rhett Reece MD Work Phone: [facility] 01-02-2022 14:10-0400 Systolic blood pressure 136 mm[Hg] Rhett Reece MD Work Phone: [facility] 01-02-2022 13:26-0400 Body height 162.6 cm Rhett Reece MD Work Phone: [facility] 01-02-2022 13:26-0400 Body weight 88.18 kg Rhett Reece MD Work Phone: [facility] 01-02-2022 13:26-0400 Heart rate 67 /min Rhett Reece MD Work Phone: [facility] 01-02-2022 13:26-0400 SaO2% (BldA) [Mass fraction] 97 % Rhett Reece MD Work Phone: [facility] 12-10-2021 13:06-0400 Body weight 87.27 kg Peyton Holman MANAGER OF WAREHOUSE[employer] Work Phone: [facility] 12-10-2021 13:06-0400 Diastolic blood pressure 72 mm[Hg] Peyton Josi MANAGER OF W[employer]HOUSE[employer] Work Phone: [facility] 12-10-2021 13:06-0400 Heart rate 63 /min Peyton Josi MANAGER OF WAREHOUSE[employer] Work Phone: [facility] 12-10-2021 13:06-0400 Systolic blood pressure 150 mm[Hg] Peyton Josi MANAGER OF W[employer]HOU[employer] Work Phone: [facility] 11-28-2021 14:02-0400 Body weight 87.82 kg Mindy Hector MANAGER OF WAREHOUSE[employer] Work Phone: [facility] 11-28-2021 14:02-0400 Diastolic blood pressure 80 mm[Hg] Mindy Hector MANAGER OF WAREHOUSE[employer] Work Phone: [facility] 11-28-2021 14:02-0400 Heart rate 58 /min Mindy Hector MANAGER OF W[employer]HOU[employer] Work Phone: [facility] 11-28-2021 14:02-0400 Respiratory rate 16 /min Mindy Hector MANAGER OF W[employer]HOUSE[employer] Work Phone: [facility] 11-28-2021 14:02-0400 SaO2% (BldA) [Mass fraction] 97 % Mindy Hector MANAGER OF W[employer]HOU[employer] Work Phone: [facility] 11-28-2021 14:02-0400 Systolic blood pressure 138 mm[Hg] Mindy Hector MANAGER OF W[employer]HOUSE[employer] Work Phone: [facility] 11-21-2021 11:14-0400 Body weight 88.91 kg Rhett Reece MD Work Phone: [facility] 11-21-2021 11:14-0400 Diastolic blood pressure 82 mm[Hg] Rhett Reece MD Work Phone: [facility] 11-21-2021 11:14-0400 Heart rate 56 /min Rhett Reece MD Work Phone: [facility] 11-21-2021 11:14-0400 Systolic blood pressure 142 mm[Hg] Rhett Reece MD Work Phone: [facility] 08-20-2021 14:01-0400 Body height 164 cm NA Black PA-C Work Phone: [facility] 08-20-2021 14:01-0400 Body temperature 98.2 [degF] NA Black PA-C Work Phone: [facility] 08-20-2021 14:01-0400 Body weight 89 kg NA Black PA-C Work Phone: [facility] 08-20-2021 14:01-0400 Diastolic blood pressure 72 mm[Hg] NA Black PA-C Work Phone: [facility] 08-20-2021 14:01-0400 Heart rate 64 /min NA Black PA-C Work Phone: [facility] 08-20-2021 14:010400 SaO2% (BldA) [Mass fraction] 97 % NA Black PA-C Work Phone: [facility] 08-20-2021 14:010400 Systolic blood pressure 138 mm[Hg] NA Black PA-C Work Phone: [facility] Encounters Encounter Date Encounter Type Care Provider Facility Start: 06-02-2023 End: 06-02-2023 ambulatory PEYTON HOLMAN Facility:[facility] Start: 05-22-2023 End: 05-22-2023 ambulatory Darius BLACK Facility:[facility] Start: 05-14-2023 End: 05-14-2023 ambulatory Darius BLACK Facility:[facility] Start: 04-02-2023 Refill Darius apple PA-C Work Phone: [facility] Procedures Date Procedure Procedure Detail Performing Clinician Start: 08-08-2022 Urine albumin quantitative M Pavan Black PA-C Work Phone: Start: 08-08-2022 PFIZER-BIONT[employer]atfor[employer] COVI D-19 BIVALENT BOOSTER VACCINE, AGE 12+ YR M Pavan Black PA-C Work Phone: Start: 08-08-2022 Urnls dip stick/tabl et rgnt auto w/o microscopy M Pavan Black PA-C Work Phone: Start: 06-28-2022 ANA SCREENING W OSKAR Darius Black PA-C Work Phone: Start: 06-28-2022 Mammography NA Black PA-C Work Phone: Start: 02-07-2022 INFLUENZA SEASONAL QUADRIVALENT HIGH DOSE AGE 65+ M Pavan Black PA-C Work Phone: Start: 01-14-2022 Myocardial spect mul tiple studies Rhett Reece MD Work Phone: Start: 01-10-2022 Echo tthrc r-t 2d w/wom-mode compl spec&colr d Peyton Holman MANAGER OF W[employer]HOUSE[employer] Work Phone: Start: 11-29-2021 Ct thorax w/o contra st material Rhett Reece MD Work Phone: Start: 11-26-2021 Radiologic exam ches t 2 views Rhett Reece MD Work Phone: Start: 09-12-2021 Dxa bone density teresa dy 1/> sites axial skel M Pavan Wayne PA-C Work Phone: Start: 08-20-2021 Adult depression scr eening assessment NA Black PA-C Work Phone: Start: 05-10-2021 Mammography Mandeep Bryson ruiz Work Phone: Start: 11-04-2017 Adult depression scr eening assessment Mandeep Rodrick Work Phone: Start: 09-01-2014 Colonoscopy Mandeep Hartley Work Phone: Plan of Treatment Date Care Activity Detail Author Start: 09-01-2024 Colonoscopy COLONOSCOPY [facility] Start: 09-01-2024 COLORECTAL CANCER SCREENING COLORECTAL CANCER SCREENING [facility] Start: 02-18-2024 Annual PCP Team Chronic Disease Visit Annual PCP Team Chronic Disease Visit [facility] Start: 02-18-2024 BP Controlled (<130/80) BP Controlled (<130/80) [facility] Start: 08-19-2023 End: 10-19-2023 CBC W Auto Differential panel - Blood CBC + DIFF Lab Routine Hypertensive heart disease with chronic diastolic congestive heart failure (HCC) Adjustment disorder with mixed anxiety and depressed mood Expected: 08/19/2023, Expires: 10/19/2023 [facility] Work Phone: Immunizations Immunization Date Immunization Notes Care Provider Gee velazquez 01-31-2023 influenza, high dose seasonal, preservative-free NA Wayne PA-C Work Phone: [facility] 01-30-2023 COVID-19 vaccine, ag e 12+ yr, season (PFIZER-BIONTECH) LISA [employer] Work Phone: [facility] 01-30-2023 respiratory syncytia l virus (RSV) vaccine, adjuvanted (AREXVY) NA [employer] Work Phone: [facility] 01-30-2023 respiratory syncytia l virus (RSV) vaccine, unspecified formulation NA [employer] Work Phone: [facility] 08-08-2022 COVID-19 booster vaccine, age 12+ yr, bivalent ([employer]) NA [employer] Work Phone: [facility] 02-07-2022 influenza, high-dose , quadrivalent vaccine (FLUZONE HIGH DOSE QUADRIVALENT) LISA [employer] Work Phone: [facility] 02-07-2022 influenza virus vacc ine, unspecified formulation Shayna Rai [facility] 02-19-2021 influenza, high-dose , quadrivalent vaccine (FLUZONE HIGH DOSE QUADRIVALENT) [employer] Work Phone: [facility] 02-20-2020 influenza, high dose seasonal, preservative-free [employer] Work Phone: [facility] 02-16-2019 influenza, high dose seasonal, preservative-free [employer] Work Phone: [facility] 02-16-2019 Seasonal trivalent influenza vaccine, adjuvanted, preservative free [employer] Work Phone: [facility] 02-02-2018 influenza, seasonal, injectable, preservative free [employer] Work Phone: [facility] 01-09-2018 influenza, high dose seasonal, preservative-free [employer] Work Phone: [facility] 02-16-2017 influenza, seasonal, injectable [employer] Work Phone: [facility] 04-20-2015 pneumococcal conjuga te vaccine, 13 valent [employer] Work Phone: [facility] 03-05-2014 influenza, seasonal, injectable Mandeep Álvarez Work Phone: [facility] 03-12-2013 pneumococcal polysaccharide vaccine, 23 valent Mandeep Álvarez Work Phone: [facility] 02-22-2013 influenza, high dose seasonal, preservative-free Mandeep Álvarez Work Phone: [facility] Work Phone: 02-03-2013 hepatitis B vaccine, adult dosage Mandeep [employer] Work Phone: [facility] Work Phone: 09-02-2012 hepatitis B vaccine, adult dosage Mandeep [employer] Work Phone: [facility] Work Phone: 08-03-2012 hepatitis B vaccine, adult dosage Mandeep Álvarez Work Phone: [facility] Work Phone: 02-02-2011 influenza virus vacc ine, unspecified formulation Mandeep Álvarez Work Phone: [facility] Work Phone: 10-23-2010 zoster vaccine, live Mandeep Álvarez Work Phone: [facility] Work Phone: 02-07-2010 influenza virus vacc ine, unspecified formulation Mandeep Álvarez Work Phone: [facility] Work Phone: 01-01-2007 tetanus toxoid, redu artis diphtheria toxoid, and acellular pertussis vaccine, adsorbed Mandeep [employer] Work Phone: [facility] Work Phone: Payers Date Payer Category Payer Medicare AETNA MEDICARE A ETNA MEDICARE PPO [id number] 2021-Present [phone] [address] [place] [address] [facility] [id number] 2021 Medicare AETNA MEDICARE A ETNA MEDICARE PPO [id number] 2021-Present [phone] [address] [place] [address] PPO [id number] 2021 Medicare [id number] Social History Date Type Detail Facility Start: 10-19-2010 End: 02-08-2022 Tobacco smoking status NHIS Ex-smoker [facility] Start: 08-02-2021 End: 05-28-2022 Alcohol intake Current non-drinker of alcohol (finding) [facility] Start: 1950 Sex Assigned At Not on file [facility] Start: 07-23-2021 End: 02-08-2022 Exposure to SARS-CoV-2 (event) Not sure [facility] Start: 11-16-2021 End: 11-26-2021 Exposure to SARS-CoV-2 (event) Unable to assess [facility] Work Phone: History of tobacco use Current smoker [facility] Start: 10-19-2010 End: 02-08-2022 Tobacco use and exposure Smokeless tobacco non-user [facility] Start: 01-02-2022 Tobacco Comment was a casual s moker. Hasn't smoked since she was 48yrs. [facility] History of tobacco use Cigarette Smoker [facility] Work Phone: Start: 08-08-2022 End: 09-12-2022 History of Social function [facility] Start: 08-08-2022 End: 09-12-2022 Tobacco use panel [facility] Adult Depression Screening Assessment 1 [facility] Start: 12-27-2022 End: 02-17-2023 Alcohol intake Ex-drinker (finding) [facility] Start: 12-27-2022 Alcohol Comment very rare [facility] Medical Equipment Procedure Code Equipment Code Equipment Origin al Text Equipment Identifier Dates Start: 03-02-2018 End: 04-02-2023 Clinical Notes 01-13-2017 to 01-29-2024 Telephone Encounter - Jessy Oviedo [employer]PERATIONS SPECIALIST - 04/02/2023 3:41 PM ESTTelephone Encounter - Ashly Lewis [employer]AN[employer] OPERATIONS SPECIALIST - 03/04/2023 9:26 AM EDTTelephone Encounter - Leyda Jo [employer]ANCH OPERATIONS SPECIALIST - 02/24/2023 12:55 PM EDT Note Date & Type Note Facility 06-02-2023 Note HNO ID: [id number] Author: DAVID EMMANUEL MD Service: ? Author Type: Physician Type: Progress Notes Filed: 06/02/2023 12:17 Note Text: [facility]ARDIOLOGY Cardiology ([facility]) [address] [facility] [address] OUTPATIENT VISIT DATE 06/02/2023 PRIMARY CARE PHYSICIAN: Darius Black [address] [place] [address] HISTORY OF PRESENT ILLNESS: Ms. Brumfield is a 73 year old woman with a history of chronic diastolic heart failure, hypertension, dyslipidemia who presents for routine follow-up. Since her last visit, she reports she has been doing well. 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 She did well postoperatively. She has a follow-up appointment today for further evaluation. She has not had symptoms concerning for congestive heart failure including PND, orthopnea, or lower extremity edema. She reports being compliant with low-sodium diet. She denies symptoms of chest pain, chest pressure, shortness of breath, or dyspnea on exertion. PAST CARDIAC HISTORY: Lauryn Brumfield is a 71 year old female who presents for cardiology evaluation. She has a PMhx of HTN, cardiomyopathy, KAYCEE, LE edema, obesity. She is unable to tell me why she was referred for cardiology evaluation. PAST MEDICAL HISTORY Diagnosis Date Cardiomyopathy in other diseases classified elsewhere echo 2009-normal EF Complication of anesthesia Diabetes mellitus (HCC) Diverticulosis of colon (without mention of hemorrhage) Esophageal reflux Gastroesophageal reflux Fibromyalgia Internal hemorrhoids without mention of complication Mental disorder Sleep apnea On CPAP Unspecified essential hypertension Essential hypertension PAST SURGICAL HISTORY Procedure Laterality Date COLONOSCOPY FLX DX W/COLLJ SPEC WHEN PFRMD 1999 Colonoscopy-due 2009 COLONOSCOPY FLX DX W/COLLJ SPEC WHEN PFRMD 9/27/10 CRANIEC TREPHINE BONE FLP BRAIN TUMOR SUPRTENTOR 1998 acoustic neuroma brain surgery DENTAL SURGERY PROCEDURE 04/2010 laser top right teeth EGD 04/01/2018 Dr Miller ESOPHAGOGASTRODUODENOSCOPY TRANSORAL DIAGNOSTIC 05/2003 EGD PAST SURGICAL HISTORY OF right foot surgery, neuroma excised SIGMOIDOSCOPY FLX DX W/COLLJ SPEC BR/WA IF PFRMD 09/01/14 Sigmoidoscopy, flexible SOCIAL HISTORY Social History Tobacco Use Smoking status: Former Types: Cigarettes Smokeless tobacco: Never Tobacco comments: was a casual smoker. Hasn't smoked since she was 48yrs. Vaping Use Vaping Use: Never used Substance Use Topics Alcohol use: Not Currently Comment: very rare Drug use: No FAMILY HISTORY Problem Relation Age of Onset Cancer Mother bladder ca. Stroke Mother Alzheimer's Disease Father Osteoporosis Sister Cancer Brother kidney ca./renal cell Coronary Artery Disease Brother [place], has a bad disc is the same as above Cancer Maternal Grandmother liver ca. Asthma Daughter Thyroid Daughter Stroke Maternal Aunt ALLERGIES: ALLERGIES Allergen Reactions Nickel Rash, Itching Amlodipine Swelling Lisinopril Cough Nitrofurantoin Rash Possible skin reaction with nitrofurantion. MEDICATIONS: carvedilol (COREG) 12.5 mg tablet take 1 tablet by mouth twice a day GEMTESA 75 mg tablet Take 1 tablet by mouth every afternoon. OTC PRODUCT PREVAGEN diphenhydramine HCl (BENADRYL ALLERGY ORAL) Take 1 tablet by mouth once daily. empagliflozin (JARDIANCE) 10 mg tablet Take 1 tablet by mouth daily with breakfast. hydroCHLOROthiazide 25 mg tablet Take 1 tablet by mouth once daily. traZODone (DESYREL) 50 mg tablet Take 1 tablet by mouth daily at bedtime. spironolactone (ALDACTONE) 50 mg tablet Take 1 tablet by mouth once daily. blood sugar diagnostic ([employer] VERIO TEST STRIPS) test strip TEST BLOOD SUGAR(S) 2 TO 3 TIMES DAILY. DX: TYPE 2 DM - CONTROLLED E11.9 INSULIN: NO albuterol HFA (PROVENTIL HFA, VENTOLIN HFA) 90 mcg/actuation inhaler INHALE 2 PUFFS INSTRUCTED EVERY 4 HOURS NEEDED FOR WHEEZING/SHORTNESS OF BREATH. gabapentin (NEURONTIN) 300 mg capsule Take 1 capsule by mouth three times a day for 180 days. pioglitazone (ACTOS) 45 mg tablet Take 1 tablet by mouth once daily. atorvastatin (LIPITOR) 20 mg tablet Take 1 tablet by mouth daily at bedtime. For cholesterol. colestipol (COLESTID) 1 gram tablet Take 1 tablet by mouth once daily. FLUoxetine (PROZAC) 20 mg capsule TAKE 4 CAPSULES BY MOUTH ONCE DAILY. pantoprazole DR (PROTONIX) 40 mg tablet Take 1 tablet by mouth twice daily. Take on empty stomach, 1/2 hr before meal. lancets (ONE TOUCH DELICA) 33 gauge USE INSTRUCTED. Test 1-2 times daily. DX: E11.9 Insulin:No losartan (COZAAR) 100 mg tablet Take 1 tablet by mouth once daily. magnesium oxide 200 mg magnesium chew Take 1 tablet by mouth once daily. triamcinolone (KENALOG IN ORABASE) 0.1 % paste 0.25 Inches b (more content not included)... [facility] 05-22-2023 Note HNO ID: [id number] Author: Darius BLACK PA-C Service: ? Author Type: Physician Ground Operations Superintendent Type: Progress Notes Filed: 05/22/2023 15:01 Note Text: 73 year old female with c/o f/u express care with c/o diarrhea pain. 05/14/2023 managed by Zheng STEVENSON with complaint of diarrhea persistent for 2 weeks, described in note as watery, somewhat sand-like. 3 episodes daily. No recent antibiotics. No evidence of blood in the stool. No complaints of abdominal pain, vomiting, weight loss. Does have history of IBS with diarrhea all of her life but usually not this bad. Patient has been off colestipol which usually helps. No recent upper respiratory infections. Component Latest Ref Rng AND Units 05/19/2023 Shigella spp./Enteroinvasive E.coli DNA Not Detected Not detected Campylobacter jejuni/coli DNA Not Detected Not detected Shiga toxin-producing gene(s) Not Detected Not detected Salmonella spp. DNA Not Detected Not detected Ova and Parasite Exam No Parasites Seen C. difficile PCR Negative for C. difficile toxin by PCR Negative for C. difficile toxin by PCR Asking if she can stop pioglitazone and go to empagliflozin. Concerned abut weight gain but records indicate 1lb difference Hemoglobin A1C (%) Date Value 02/17/2023 6.8 07/30/2022 7.5 08/14/2020 6.9 06/16/2019 6.7 ) HISTORIES FAMILY HISTORY Problem Relation Age of Onset Cancer Mother bladder ca. Stroke Mother Alzheimer's Disease Father Osteoporosis Sister Cancer Brother kidney ca./renal cell Coronary Artery Disease Brother [place], has a bad disc is the same as above Cancer Maternal Grandmother liver ca. Asthma Daughter Thyroid Daughter Stroke Maternal Aunt PAST MEDICAL HISTORY Diagnosis Date Cardiomyopathy in other diseases classified elsewhere echo 2009-normal EF Complication of anesthesia Diabetes mellitus (HCC) Diverticulosis of colon (without mention of hemorrhage) Esophageal reflux Gastroesophageal reflux Fibromyalgia Internal hemorrhoids without mention of complication Mental disorder Sleep apnea On CPAP Unspecified essential hypertension Essential hypertension PAST SURGICAL HISTORY Procedure Laterality Date COLONOSCOPY FLX DX W/COLLJ SPEC WHEN PFRMD 1999 Colonoscopy-due 2009 COLONOSCOPY FLX DX W/COLLJ SPEC WHEN PFRMD 01/29/10 CRANIEC TREPHINE BONE FLP BRAIN TUMOR SUPRTENTOR 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 Hasn't smoked since she was 48yrs. Vaping Use Vaping Use: Never used Substance Use Topics Alcohol use: Not Currently Comment: very rare Drug use: No ACTIVE PROBLEM LIST Essential Hypertension, Benign Insomnia Esophageal Reflux Hyperlipidemia Sleep Apnea Type 2 Diabetes Mellitus Without Complication (Hcc) Spinal Stenosis of Lumbar Region Primary Osteoarthritis of Left Knee Adjustment Disorder With Mixed Anxiety and Depressed Mood Obesity (Bmi 30.0-34.9) Inflammatory Polyarthritis (Hcc) Family History of Ischemic Heart Disease Aortic Valve Sclerosis Lung Nodule Acquired Deafness of Right Ear Acute Bilateral Low Back Pain With Right-Sided Sciatica Chronic Diastolic Chf (Congestive Heart Failure) (Hcc) Small Airways Disease Current Outpatient Medications Medication Sig Dispense Refill hydroCHLOROthiazide 25 mg tablet Take 1 tablet by mouth once daily. 90 tablet 2 traZODone (DESYREL) 50 mg tablet Take 1 tablet by mouth daily at bedtime. 90 tablet 2 spironolactone (ALDACTONE) 50 mg tablet Take 1 tablet by mouth once daily. 90 tablet 3 blood sugar diagnostic ([employer] VERIO TEST STRIPS) test strip TEST BLOOD SUGAR(S) 2 TO 3 TIMES DAILY. DX: TYPE 2 DM - CONTROLLED E11.9 INSULIN: NO 100 Strip 11 albuterol HFA (PROVENTIL HFA, VENTOLIN HFA) 90 mcg/actuation inhaler INHALE 2 PUFFS INSTRUCTED EVERY 4 HOURS NEEDED FOR WHEEZING/SHORTNESS OF BREATH. 6.7 Each 5 gabapentin (NEURONTIN) 300 mg capsule Take 1 capsule by mouth three times a day for 180 days. 180 capsule 3 mirabegron (MYRBETRIQ) 50 mg Tb24 Take 1 tablet by mouth once daily. 30 tablet 2 pioglitazone (ACTOS) 45 mg tablet Take 1 tablet by mouth once daily. 30 tablet 11 atorvastatin (LIPITOR) 20 mg tablet Take 1 tablet by mouth daily at bedtime. For cholesterol. 90 tablet 1 colestipol (COLESTID) 1 gram tablet Take 1 tablet by mouth once daily. 90 tablet 1 FLUoxetine (PROZAC) 20 mg capsule TAKE 4 CAPSULES BY MOUTH ONCE DAILY. [address] (PROTONIX) 40 mg tablet Take 1 tablet by mouth twice daily. Take on empty stomac (more content not included)... [facility] 05-14-2023 Note HNO ID: [id number] Author: ZHENG STAPLETON PA Service: ? Author Type: Physician Ground Operations Superintendent Type: Progress Notes Filed: 05/14/2023 16:16 Note Text: This note was created using [employer]. Subjective Lauryn Brumfield is a 73 year old female. HPI 73-year-old female presents for diarrhea x 2 weeks. Patient states that she started getting diarrhea at the end of April/beginning of May. She states it is watery diarrhea, sometimes it is sand-like . She states it is worsened this week. She had 3 episodes of watery diarrhea today. She states that she has not had any antibiotics recently. No blood in the stool. No abdominal pain. No vomiting. No weight loss. States she has a history of IBS and has dealt with diarrhea all her life, but she states that it is usually not this bad. She is supposed to be taking colestipol daily, but states she has not been taking it. She took 1 tablet today. She is unsure of her last colonoscopy. She states that she thought she may have had a low-grade fever earlier this week. No cough, congestion or other symptoms. PAST MEDICAL HISTORY Diagnosis Date Cardiomyopathy in other diseases classified elsewhere echo 2009-normal EF Complication of anesthesia Diabetes mellitus (HCC) Diverticulosis of colon (without mention of hemorrhage) Esophageal reflux Gastroesophageal reflux Fibromyalgia Internal hemorrhoids without mention of complication Mental disorder Sleep apnea On CPAP Unspecified essential hypertension Essential hypertension PAST SURGICAL HISTORY Procedure Laterality Date COLONOSCOPY FLX DX W/COLLJ SPEC WHEN PFRMD 1999 Colonoscopy-due 2009 COLONOSCOPY FLX DX W/COLLJ SPEC WHEN PFRMD 01/29/10 CRANIEC TREPHINE BONE FLP BRAIN TUMOR SUPRTENTOR 1998 acoustic neuroma brain surgery DENTAL SURGERY PROCEDURE 04/2010 laser top right teeth EGD 04/01/2018 Dr Miller ESOPHAGOGASTRODUODENOSCOPY TRANSORAL DIAGNOSTIC 05/2003 EGD PAST SURGICAL HISTORY OF right foot surgery, neuroma excised SIGMOIDOSCOPY FLX DX W/COLLJ SPEC BR/WA IF PFRMD 09/01/14 Sigmoidoscopy, flexible ALLERGIES Metal [Other], Nickel, Amlodipine, Lisinopril, and Nitrofurantoin MEDICATIONS spironolactone (ALDACTONE) 50 mg tablet Take 1 tablet by mouth once daily. blood sugar diagnostic ([employer] VERIO TEST STRIPS) test strip TEST BLOOD SUGAR(S) 2 TO 3 TIMES DAILY. DX: TYPE 2 DM - CONTROLLED E11.9 INSULIN: NO albuterol HFA (PROVENTIL HFA, VENTOLIN HFA) 90 mcg/actuation inhaler INHALE 2 PUFFS INSTRUCTED EVERY 4 HOURS NEEDED FOR WHEEZING/SHORTNESS OF BREATH. gabapentin (NEURONTIN) 300 mg capsule Take 1 capsule by mouth three times a day for 180 days. mirabegron (MYRBETRIQ) 50 mg Tb24 Take 1 tablet by mouth once daily. pioglitazone (ACTOS) 45 mg tablet Take 1 tablet by mouth once daily. atorvastatin (LIPITOR) 20 mg tablet Take 1 tablet by mouth daily at bedtime. For cholesterol. colestipol (COLESTID) 1 gram tablet Take 1 tablet by mouth once daily. FLUoxetine (PROZAC) 20 mg capsule TAKE 4 CAPSULES BY MOUTH ONCE DAILY. pantoprazole DR (PROTONIX) 40 mg tablet Take 1 tablet by mouth twice daily. Take on empty stomach, 1/2 hr before meal. mirabegron (MYRBETRIQ) 50 mg Tb24 Take 2 tablets by mouth once daily. lancets (ONE TOUCH DELICA) 33 gauge USE INSTRUCTED. Test 1-2 times daily. DX: E11.9 Insulin:No carvedilol (COREG) 12.5 mg tablet TAKE 1 TABLET BY MOUTH TWICE A DAY traZODone (DESYREL) 50 mg tablet Take 1 tablet by mouth daily at bedtime. hydroCHLOROthiazide 25 mg tablet Take 1 tablet by mouth once daily. losartan (COZAAR) 100 mg tablet Take 1 tablet by mouth once daily. magnesium oxide 200 mg magnesium chew Take 1 tablet by mouth once daily. triamcinolone (KENALOG IN ORABASE) 0.1 % paste 0.25 Inches by DENTAL route twice daily. blood sugar diagnostic (BLOOD GLUCOSE TEST) test strip Test blood sugar(s) 2-3 times daily. Dx: Type 2 DM - Controlled E11.9 Insulin: No ONETOUCH DELICA LANCETS 30 gauge misc TEST BLOOD SUGAR 2-3 TIMES DAILY FAMILY HISTORY Problem Relation Age of Onset Cancer Mother bladder ca. Stroke Mother Alzheimer's Disease Father Osteoporosis Sister Cancer Brother kidney ca./renal cell Coronary Artery Disease Brother [place], has a bad disc is the same as above Cancer Maternal Grandmother liver ca. Asthma Daughter Thyroid Daughter Stroke Maternal Aunt Social History Tobacco Use Smoking status: Former Types: Cigarettes Smokeless tobacco: Never Tobacco comments: was a casual smoker. Hasn't smoked since she was 48yrs. Vaping Use Vaping Use: Never used Substance Use Topics Alcohol use: Not Currently Comment: very rare Drug use: No Review of Systems Constitutional: Negative for chills and fever. HENT: Negative for congestion, ear pain and sore throat. Respiratory: Negative for cough and shortness of breath. Cardiovascular: Negative for chest pain. Gastrointestinal: Positive for diarrhea. Negative (more content not included)... [facility] 04-02-2023 Miscellaneous Notes Patient is out of strips. Patient has been identified by name and date of : Yes Patient phones for refill(s): Requested Prescriptions Pending Prescriptions Disp Refills blood sugar diagnostic (ONETOUCH VERIO TEST STRIPS) test strip 100 Strip 11 Sig: TEST BLOOD SUGAR(S) 2 TO 3 TIMES DAILY. DX: TYPE 2 DM - CONTROLLED E11.9 INSULIN: NO Date of last office visit in primary care: 02/17/2023 Date of next office visit in primary care: 08/21/2023 Last 2 Encounter Wt Readings: Date: Wt: 02/17/2023 79.4 kg (175 lb) 08/08/2022 82.6 kg (182 lb) Previous labs/tests for medication: Not applicable Please advise. Thank you. Jessy Oviedo LPN. documented in this encounter [facility] 04-01-2023 Note HNO ID: [id number] Author: Mandeep Álvarez Service: ? Author Type: Physician Type: Progress Notes Filed: 04/01/2023 2:43 PM Note Text: Last time saw Halley Black: 02/17/23 Subjective: Patient presents to clinic c/o painful toenails. They state that the nails are especially painful with shoe gear and pressure. Patient states that nails 1-5 b/l are painful. Patient admits to being diabetic. [facility] but has yet to hear anything. No other pedal complaints at this time. Patient states no change in medications or medical history since last visit. Objective: Patient presents to clinic ambulating in sneakers Vasc: DP and PT pulses are palpable bilateral. CFT is less than 5 seconds bilateral. Skin temperature is warm to cool proximal to distal bilateral. There is no edema or varicosities noted. Neuro: Protective sensation is intact to the foot and toes when tested with the 5.07 SWM bilateral. Vibratory sensation is decreased at the hallux IPJ bilateral. The hallux is downgoing bilateral. Derm: Nails 1-5 bl are painful, discolored-yellow, thick, crumbly, dystrophic and with subungal debris. Skin is of normal turgor, texture and hair growth is present bilateral. There are callus to b/l 5th metatarsal and left 1st metatarsal. no ulcerations, scars, verruca or other lesions noted. Ortho: Muscle strength is 5/5 for all pedal groups tested. Ankle joint DF is full with the knee extended with no pain or crepitus noted. 1st MPJ ROM is full bilateral. Assessment: (B35.1) Onychomycosis (primary encounter diagnosis) (M79.675) Pain in toe of left foot (M79.674) Pain in toe of right foot (E11.42) Diabetic polyneuropathy associated with type 2 diabetes mellitus (HCC) (L85.9) Hyperkeratosis (M19.072) Arthritis of foot, left Plan: Patient was seen and evaluated. Nails 1-5 bilateral were debrided in length and thickness. Callus reduced to b/l feet with dremmel. Due to diabetes, borderline neuropathy, history of callus, I do feel this patient benefits from diabetic shoe. Recommend she contact the [employer] [facility] to figure what happened to her diabetic shoe. Discussed dorsal spur of left midfoot. Would recommend she alter the laces in her shoes to avoid rubbing. Other options discussed include gel padding Patient was instructed on the continued importance of diabetic foot care along with proper diet and keeping their blood sugar under control to prevent complications. Patient is to RTC in 3-4 months. Mandeep Álvarez DPM [facility] 04-01-2023 Note HNO ID: [id number] Author: Mandeep Álvarez Service: ? Author Type: Physician Type: Progress Notes Filed: 04/01/2023 2:43 PM Note Text: Duplicate. See above [facility] 04-01-2023 Note HNO ID: [id number] Author: Shannan Ramos, ESTEE Service: ? Author Type: Registered Nurse Type: Progress Notes Filed: 04/01/2023 2:43 PM Note Text: Patient presents with: Left Foot - Established Patient, Follow Up: nail care Right Foot - Established Patient, Follow Up: nail care AMB ROOMING INTAKE FLOWSHEET DATA [facility] 04-01-2023 Note Patient Outreach (STEVE TNAV) LAURYN BRUMFIELD ([id number]) 1950 F Date Time Provider Department 04/01/23 NANCY PACHECO During your visit today, we recorded the following information about you: Nancy Pacheco MA 04/01/2023 1:17 PM Signed POPULATION HEALTH NAVIGATION OUTREACH Action/ [employer] Care Gaps 11.11.24 Discuss/Due for: Dilated Retinal Exam Follow Up previously scheduled with Darius Black PA-C Outcome: 1st attempt - No Answer/Busy 2nd attempt - MyChart message sent Patient Identified by Name and : NO Outreach Outcome/Action Unable to reach patient: No Answer/Busy MyChart message sent Did you use a PCP flex slot to schedule this appointment? N/A Reason for Outreach Care Gap or Scheduling/Wellness visits Payer: Payor: [employer]NA MEDICARE / Plan: [employer] MEDICARE PPO / Product Type: PPO / Care Gap Reviewed:: Diabetic Eye Exam Reminder: Reminder note to check Health Maintenance for items below Health Maintenance items due: Alpha-1 Antitrypsin Deficiency Screening Never done Shingrix Vaccine(2 of 3) due on 12/18/2010 DTaP,Tdap,Td Vaccine(2 - Td or Tdap) due on 01/01/2017 Dilated Retinal Exam due on 03/12/2022 Depression Assessment Never done Navigation Signature: Nancy Pacheco MA April 01, 2023 7:12 AM Allergies As of Date: 04/01/2023 Noted Allergy Reaction metal [Other] 01/01/2007 2 - Rash 9 - Itching NICKEL 01/01/2007 2 - Rash 9 - Itching AMLODIPINE 04/07/2012 7 - Swelling LISINOPRIL 11/25/2011 3 - Cough NITROFURANTOIN 09/02/2019 2 - Rash Comments: Possible skin reaction with nitrofurantion. Date Reviewed: 12/27/2022 Reviewed by: Lore Gonzalez, RN - Fully Assessed Reason for Visit: Population Health Navigation Outreach [3910] Cmt: [employer] Care Gaps 11.. Prescriptions as of 04/01/2023 - albuterol HFA (PROVENTIL HFA, VENTOLIN HFA) 90 mcg/actuation inhaler INHALE 2 PUFFS INSTRUCTED EVERY 4 HOURS NEEDED FOR WHEEZING/SHORTNESS OF BREATH. - gabapentin (NEURONTIN) 300 mg capsule Take 1 capsule by mouth three times a day for 180 days. - mirabegron (MYRBETRIQ) 50 mg Tb24 Take 1 tablet by mouth once daily. - pioglitazone (ACTOS) 45 mg tablet Take 1 tablet by mouth once daily. - atorvastatin (LIPITOR) 20 mg tablet Take 1 tablet by mouth daily at bedtime. For cholesterol. - colestipol (COLESTID) 1 gram tablet Take 1 tablet by mouth once daily. - FLUoxetine (PROZAC) 20 mg capsule TAKE 4 CAPSULES BY MOUTH ONCE DAILY. - pantoprazole DR (PROTONIX) 40 mg tablet Take 1 tablet by mouth twice daily. Take on empty stomach, 1/2 hr before meal. - mirabegron (MYRBETRIQ) 50 mg Tb24 Take 2 tablets by mouth once daily. - lancets (ONE TOUCH DELICA) 33 gauge USE INSTRUCTED. Test 1-2 times daily. DX: E11.9 Insulin:No - carvedilol (COREG) 12.5 mg tablet TAKE 1 TABLET BY MOUTH TWICE A DAY - traZODone (DESYREL) 50 mg tablet Take 1 tablet by mouth daily at bedtime. - blood sugar diagnostic (ONETOUCH VERIO TEST STRIPS) test strip TEST BLOOD SUGAR(S) 2 TO 3 TIMES DAILY. DX: TYPE 2 DM - CONTROLLED E11.9 INSULIN: NO - hydroCHLOROthiazide 25 mg tablet Take 1 tablet by mouth once daily. - losartan (COZAAR) 100 mg tablet Take 1 tablet by mouth once daily. - magnesium oxide 200 mg magnesium chew Take 1 tablet by mouth once daily. - spironolactone (ALDACTONE) 50 mg tablet Take 1 tablet by mouth once daily. - triamcinolone (KENALOG IN ORABASE) 0.1 % paste 0.25 Inches by DENTAL route twice daily. - blood sugar diagnostic (BLOOD GLUCOSE TEST) test strip Test blood sugar(s) 2-3 times daily. Dx: Type 2 DM - Controlled E11.9 Insulin: No - ONETOUCH DELICA LANCETS 30 gauge misc TEST BLOOD SUGAR 2-3 TIMES DAILY Problem List As Of Date 04/01/2023 Noted Resolved BENIGN HYPERTENSION [I10] 10/09/2005 Myalgia and myositis, unspecified [[id number]] 10/09/2005 10/07/2016 Insomnia [G47.00] 10/09/2005 ESOPHAGEAL REFLUX [K21.9] 10/09/2005 Actinic keratosis [L57.0] 08/10/2008 07/04/2014 Inflamed seborrheic keratosis [L82.0] 08/10/2008 07/04/2014 Other chronic 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 radiation*08/10/2008 07/04/2014 SOLAR LENGINES///DYSCHROMIA OTHER [L81.9] 08/10/2008 07/04/2014 Hyperlipidemia [E78.5] 04/09/2010 Sleep apnea [G47.30] 10/19/2010 Glucose intolerance (pre-diabetes) [R73.03] 10/19/2010 09/09/2013 Arthritis of knee, degenerative [M17.9] 07/22/2011 10/07/2016 Type 2 diabetes mellitus without complication (*03/12/2013 Spinal stenosis of lumbar region [M48.061] 09/09/2013 Primary osteoarthritis of left knee [M17.12] 01/30/2015 Pain in left knee [M25.562] 01/30/2015 10/07/2016 Marital conflict [Z63.0] 05/23/2015 10/07/2016 Adjustment disorder with mixed anxiety and depr*05/23/2015 Obesity (BMI 30.0-34.9) [E66.9] 04/04/2016 Inflammatory polyarthritis (HCC) [M06.4] 10/07/2016 Family history of ischemic heart disease [Z82.4* (more content not included)... [facility] 04-01-2023 Note HNO ID: [id number] Author: Nancy Pacheco MA Service: ? Author Type: Fluid Designer Type: Progress Notes Filed: 04/01/2023 1:17 PM Note Text: POPULATION HEALTH NAVIGATION OUTREACH Action/ [employer] Care Gaps 11.7.23 Discuss/Due for: Dilated Retinal Exam Follow Up previously scheduled with Darius Black PA-C Outcome: 1st attempt - No Answer/Busy 2nd attempt - MyChart message sent Patient Identified by Name and : NO Outreach Outcome/Action Unable to reach patient: No Answer/Busy MyChart message sent Did you use a PCP flex slot to schedule this appointment? N/A Reason for Outreach Care Gap or Scheduling/Wellness visits Payer: Payor: [employer] MEDICARE / Plan: [employer] MEDICARE PPO / Product Type: PPO / Care Gap Reviewed:: Diabetic Eye Exam Reminder: Reminder note to check Health Maintenance for items below Health Maintenance items due: Alpha-1 Antitrypsin Deficiency Screening Never done Shingrix Vaccine(2 of 3) due on 12/18/2010 DTaP,Tdap,Td Vaccine(2 - Td or Tdap) due on 01/01/2017 Dilated Retinal Exam due on 03/12/2022 Depression Assessment Never done Navigation Signature: Nancy Pacheco MA April 01, 2023 7:12 AM [facility] 03-04-2023 Miscellaneous Notes GIANFRANCO 05/02/22 Patient phones requesting refills as follows: Requested Prescriptions Pending Prescriptions Disp Refills albuterol HFA (PROVENTIL HFA, VENTOLIN HFA) 90 mcg/actuation inhaler [Pharmacy Med Name: ALBUTEROL HFA (PROVENTIL) INH] 6.7 Each 5 Sig: INHALE 2 PUFFS INSTRUCTED EVERY 4 HOURS NEEDED FOR WHEEZING/SHORTNESS OF BREATH. Please review and advise. Ashly Lewis LPN documented in this encounter [facility] 02-24-2023 Miscellaneous Notes Attempted to contact pharmacy and extended hold times. Advised patient to please check with them. documented in this encounter [facility] 02-17-2023 Note HNO ID: [id number] Author: Darius Black PA-C Service: ? Author Type: Physician Ground Operations Superintendent Type: Progress Notes Filed: 02/17/2023 7:16 PM Note Text: 73 year old female with c/o here for follow up Hypertensive heart disease with chronic diastolic congestive heart failure (hcc) (primary encounter diagnosis) Chronic diastolic chf (congestive heart failure) (hcc) Aortic valve sclerosis Pericardial effusion Hyperlipidemia, unspecified hyperlipidemia type Cardiovascular interval hx: 01/14/2022 NM cardiac perfusion stress/pharmacologic Dr. David Emmanuel photoengraving helper: No scintigraphic evidence for inducible ischemia, no evidence of scarred myocardium. LV size and LV SF WNL, RV size and RV SF WNL, gated LVEF 72% 01/10/2022 echocardiogram: LV size and LV SF WNL, wall motion all scored within normal limits, RV size and RV SF WNL. RVSP 34 mmHg consistent with normal, RAP 3 mmHg although IVC not seen. No significant valvular abnormalities. MVR 0-1+, TVR 0-1+, AVR 01+ with peak gradient 7 mmHg. Aorta normal in size. 11/27/2021 CONCLUSIONS: - Technically difficult exam due to body habitus. - Exam indication: Shortness of Breath - The left ventricle is normal in size. Left ventricular systolic function is normal. EF = 65 ? 5% (2D 4-ch.) Grade I left ventricular diastolic dysfunction. - The right ventricle is normal in size. Right ventricular systolic function is normal. - There are no significant valvular abnormalities. - There is a small pericardial effusion adjacent to the LV. - Exam was compared with the prior echocardiographic exam performed on 10/03/2008. There has been very little change. 01/02/2022 EKG: Normal sinus rhythm, nonspecific ST abnormality. Atorvastatin 20mg daily HS Carvedilol 12.5mg daily Colestid 1 gram daily HCTZ 25mg daily Spironalactone 50mg daily Use of NTG: Chest pain, arm, jaw pain, neck, or upper back pain suggestive of angina: No. SOB: if walks far or hard Dyspnea with exertion: as above orthopnea: No racing or irregular heartbeats: No palpitations: No syncopal sx: No Unexplainable fatigue No Leg swelling: A little bit, not bad Nausea: No diaphoresis: No Heartburn: No Claudication: No Smoking: No Following Low cholesterol, high fiber diet? Yes If on statin: muscle aches? No If on statin: GI sx or diarrhea? Chronic diarrhea: taking colestipol daily which helps Additional history none. Lab review: Did not complete labs: no new data Sleep apnea, unspecified type Small airway disease KAYCEE Blueberry Grower: Dr. Christopher Dunlap. Interval history: no recent illness or change in overall pattern. Current medications: Albuterol HFA 90mcg 2 puffs q4h prn Worsening shortness of breath: No. Cough: No. Wheezing: Not really Smoking: No. Compliant with medications: Yes. Using rescue inhaler: If SOB takes a couple puffs as needed, maybe 3 times a week depending on activity. . Type 2 diabetes mellitus without complication, without long-term current use of insulin (hcc) Current medications: Empagliflozin 10mg daily too expensive Metfromin 500mg 2 tabs twice a day causes diarrhea Taking medication as directed consistently? Yes Medication side effects: diarrhea from metformin Medical Issues / Complications: hypertension, hyperlipidemia, and cardiovascular disease Checking blood sugars at home? Yes. Brought nicely organized list, controlled in in ranges 120s-185, a few low 200s. Watching diet? Not much, likes to eat sweets Physical Activity: Regular Hypoglycemic spells? No Any visual disturbance? No Chest pain? No New numbness, tingling or loss of sensation? No Any recent foot problems, sores or rashes? Patient would benefit from diabetic shoes. Any recent or sudden weight loss? No Change in urination? No. If yes: Any recent illness? No Last eye exam: due for exam. Last foot exam: dues. HBA1C: Hemoglobin A1C (%) Date Value 07/30/2022 7.5 09/03/2021 6.9 08/14/2020 6.9 06/16/2019 6.7 ) CMP: Glucose 263 07/30/2022 BUN 18 07/30/2022 Creatinine 0.59 07/30/2022 Sodium 141 07/30/2022 Potassium 4.7 07/30/2022 Chloride 106 07/30/2022 CO2 29 07/30/2022 Protein, Total 6.3 07/30/2022 Albumin 4.2 07/30/2022 Calcium 9.3 07/30/2022 Alkaline Phosphatase 91 07/30/2022 Bilirubin, Total 0.3 07/30/2022 AST 18 07/30/2022 ALT 18 07/30/2022 Last 2 Encounter Wt Readings: Date: Wt: 08/08/2022 82.6 kg (182 lb) 05/02/2022 84.4 kg (186 lb) Obesity (bmi 30.0-34.9) Vitals 05/02/2022 08/08/2022 02/17/2023 WEIGHT in POUNDS 186 lb 182 lb 175 lb WEIGHT in KILOGRAMS 84.369 kg 82.555 kg 79.379 kg Gastroesophageal reflux disease without esophagitis Current medication: Pantoprazole DR 40mg daily AC. Current symptoms: none on medication. Last Mg level if on PPI chronically: none recent. Heartburn is controlled: Yes. Dysphagia: No. Bloody or black stools: No. Bowel changes: diarrhea controlle (more content not included)... 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 LV size and LV SF WNL, RV size and RV SF WNL, gated LVEF 72% 01/10/2022 echocardiogram: LV size and LV SF WNL, wall motion all scored within normal limits, RV size and RV SF WNL. RVSP 34 mmHg consistent with normal, RAP 3 mmHg although IVC not seen. No significant valvular abnormalities. MVR 0-1+, TVR 0-1+, AVR 01+ with peak gradient 7 mmHg. Aorta normal in size. 11/27/2021 CONCLUSIONS: - Technically difficult exam due to body habitus. - Exam indication: Shortness of Breath - The left ventricle is normal in size. Left ventricular systolic function is normal. EF = 65 5% (2D 4-ch.) Grade I left ventricular diastolic dysfunction. - The right ventricle is normal in size. Right ventricular systolic function is normal. - There are no significant valvular abnormalities. - There is a small pericardial effusion adjacent to the LV. - Exam was compared with the prior echocardiographic exam performed on 10/03/2008. There has been very little change. 01/02/2022 EKG: Normal sinus rhythm, nonspecific ST abnormality. Atorvastatin 20mg daily HS Carvedilol 12.5mg daily Colestid 1 gram daily HCTZ 25mg daily Spironalactone 50mg daily Use of NTG: Chest pain, arm, jaw pain, neck, or upper back pain suggestive of angina: No. SOB: if walks far or hard Dyspnea with exertion: as above orthopnea: No racing or irregular heartbeats: No palpitations: No syncopal sx: No Unexplainable fatigue No Leg swelling: A little bit, not bad Nausea: No diaphoresis: No Heartburn: No Claudication: No Smoking: No Following Low cholesterol, high fiber diet? Yes If on statin: muscle aches? No If on statin: GI sx or diarrhea? Chronic diarrhea: taking colestipol daily which helps Additional history none. Lab review: Did not complete labs: no new data Sleep apnea, unspecified type Small airway disease KAYCEE Blueberry Grower: Dr. Christopher Dunlap. Interval history: no recent illness or change in overall pattern. Current medications: Albuterol HFA 90mcg 2 puffs q4h prn Worsening shortness of breath: No. Cough: No. Wheezing: Not really Smoking: No. Compliant with medications: Yes. Using rescue inhaler: If SOB takes a couple puffs as needed, maybe 3 times a week depending on activity. . Type 2 diabetes mellitus without complication, without long-term current use of insulin (hcc) Current medications: Empagliflozin 10mg daily too expensive Metfromin 500mg 2 tabs twice a day causes diarrhea Taking medication as directed consistently? Yes Medication side effects: diarrhea from metformin Medical Issues / Complications: hypertension, hyperlipidemia, and cardiovascular disease Checking blood sugars at home? Yes. Brought nicely organized list, controlled in in ranges 120s-185, a few low 200s. Watching diet? Not much, likes to eat sweets Physical Activity: Regular Hypoglycemic spells? No Any visual disturbance? No Chest pain? No New numbness, tingling or loss of sensation? No Any recent foot problems, sores or rashes? Patient would benefit from diabetic shoes. Any recent or sudden weight loss? No Change in urination? No. If yes: Any recent illness? No Last eye exam: due for exam. Last foot exam: dues. HBA1C: Hemoglobin A1C (%) Date Value 07/30/2022 7.5 09/03/2021 6.9 08/14/2020 6.9 06/16/2019 6.7 ) CMP: Glucose 263 07/30/2022 BUN 18 07/30/2022 Creatinine 0.59 07/30/2022 Sodium 141 07/30/2022 Potassium 4.7 07/30/2022 Chloride 106 07/30/2022 CO2 29 07/30/2022 Protein, Total 6.3 07/30/2022 Albumin 4.2 07/30/2022 Calcium 9.3 07/30/2022 Alkaline Phosphatase 91 07/30/2022 Bilirubin, Total 0.3 07/30/2022 AST 18 07/30/2022 ALT 18 07/30/2022 Last 2 Encounter Wt Readings: Date: Wt: 08/08/2022 82.6 kg (182 lb) 05/02/2022 84.4 kg (186 lb) Obesity (bmi 30.0-34.9) Vitals 05/02/2022 08/08/2022 02/17/2023 WEIGHT in POUNDS 186 lb 182 lb 175 lb WEIGHT in KILOGRAMS 84.369 kg 82.555 kg 79.379 kg Gastroesophageal reflux disease without esophagitis Current medication: Pantoprazole DR 40mg daily AC. Current symptoms: none on medication. Last Mg level if on PPI chronically: none recent. Heartburn is controlled: Yes. Dysphagia: No. Bloody or black stools: No. Bowel changes: diarrhea controlled with gemfibrozil. . Acute bilateral low back pain with right-sided sciatica Inflammatory polyarthritis (hcc) Spinal stenosis of lumbar region, unspecified whether neurogenic claudication present Current medications: Gabapentin 300mg three times a day Can walk to and from parking lot, a couple blocks Back hurts to much to keep walking Having numbness and tinkling in left arm, drops things in lkeft hand Right handed Adjustment disorder with mixed anxiety and depressed mood Insomnia, unspecified type Fluoxetine 20mg daily Trazedone 50mg daily HS Sleeps is good. Mood is good. Boyfriend long distance coming to see her in a few weeks. Urinary/fecal incontinence. See. Dr. Cantu UroGyn Current medications: Myrbetriq 50mg 2 tabs daily Dosage is above the recommended dosing. Seems to really help. I will placed refill 50mg daily and she will call for further refills to Dr. Cantu HISTORIES FAMILY HISTORY Problem Relation Age of Onset Cancer Mother bladder ca. Stroke Mother Alzheimer's Disease Father Osteoporosis Sister Cancer Brother kidney ca./renal cell Coronary Artery Disease Brother [place], has a bad disc is the same as above Cancer Maternal Grandmother liver ca. Asthma Daughter Thyroid Daughter Stroke Maternal Aunt PAST MEDICAL HISTORY Diagnosis Date Cardiomyopathy in other diseases classified elsewhere echo 2009-normal EF Complication of anesthesia Diabetes mellitus (HCC) Diverticulosis of colon (without mention of hemorrhage) Esophageal reflux Gastroesophageal reflux Fibromyalgia Internal hemorrhoids without mention of complication Mental disorder Sleep apnea On CPAP Unspecified essential hypertension Essential hypertension PAST SURGICAL HISTORY Procedure Laterality Date COLONOSCOPY FLX DX W/COLLJ SPEC WHEN PFRMD 1999 Colonoscopy-due 2009 COLONOSCOPY FLX DX W/COLLJ SPEC WHEN PFRMD 01/29/10 CRANIEC TREPHINE BONE FLP BRAIN TUMOR SUPRTENTOR 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 Hasn't smoked since she was 48yrs. Vaping Use Vaping Use: Never used Substance Use Topics Alcohol use: Not Currently Comment: very rare Drug use: No ACTIVE PROBLEM LIST Essential Hypertension, Benign Insomnia Esophageal Reflux Hyperlipidemia Sleep Apnea Type 2 Diabetes Mellitus Without Complication (Hcc) Spinal Stenosis of Lumbar Region Primary Osteoarthritis of Left Knee Adjustment Disorder With Mixed Anxiety and Depressed Mood Obesity (Bmi 30.0-34.9) Inflammatory Polyarthritis (Hcc) Family History of Ischemic Heart Disease Aortic Valve Sclerosis Lung Nodule Acquired Deafness of Right Ear Acute Bilateral Low Back Pain With Right-Sided Sciatica Chronic Diastolic Chf (Congestive Heart Failure) (Hcc) Current Outpatient Medications Medication Sig Dispense Refill albuterol HFA (PROVENTIL HFA, VENTOLIN HFA) 90 mcg/actuation inhaler Inhale 2 Puffs as instructed every 4 hours as needed for wheezing/shortness of breath. 1 Each 5 atorvastatin (LIPITOR) 20 mg tablet Take 1 tablet by mouth daily at bedtime. For cholesterol. 90 tablet 1 blood sugar diagnostic (BLOOD GLUCOSE TEST) test strip Test blood sugar(s) 2-3 times daily. Dx: Type 2 DM - Controlled E11.9 Insulin: No 90 Strip 5 blood sugar diagnostic (ONETOUCH VERIO TEST STRIPS) test strip TEST BLOOD SUGAR(S) 2 TO 3 TIMES DAILY. DX: TYPE 2 DM - CONTROLLED E11.9 INSULIN: NO 100 Strip 11 carvedilol (COREG) 12.5 mg tablet TAKE 1 TABLET BY MOUTH TWICE A DAY 180 tablet 1 colestipol (COLESTID) 1 gram tablet Take 1 tablet by mouth once daily. 90 tablet 1 empagliflozin (JARDIANCE) 10 mg tablet Take 1 tablet by mouth once daily. Take 1 tablet once daily in the morning 90 tablet 1 FLUoxetine (PROZAC) 20 mg capsule TAKE 4 CAPSULES BY MOUTH ONCE DAILY. 360 capsule 1 gabapentin (NEURONTIN) 300 mg capsule Take 1 capsule by mouth three times daily for 180 days. 270 capsule 3 hydroCHLOROthiazide 25 mg tablet Take 1 tablet by mouth once daily. 90 tablet 2 lancets (ONE TOUCH DELICA) 33 gauge USE INSTRUCTED. Test 1-2 times daily. DX: E11.9 Insulin:No 100 Each 3 losartan (COZAAR) 100 mg tablet Take 1 tablet by mouth once daily. 90 tablet 3 magnesium oxide 200 mg magnesium chew Take 1 tablet by mouth once daily. 90 tablet 3 metFORMIN (GLUCOPHAGE) 500 mg tablet Take 2 tablets by mouth twice daily with meals. 360 tablet 3 mirabegron (MYRBETRIQ) 50 mg Tb24 Take 2 tablets by mouth once daily. 5 ONETOUCH DELICA LANCETS 30 gauge misc TEST BLOOD SUGAR 2-3 TIMES DAILY [address] (PROTONIX) 40 mg tablet Take 1 tablet by mouth twice daily. Take on empty stomach, 1/2 hr before meal. 180 tablet 1 spironolactone (ALDACTONE) 50 mg tablet Take 1 tablet by mouth once daily. 90 tablet 3 traZODone (DESYREL) 50 mg tablet Take 1 tablet by mouth daily at bedtime. 90 tablet 2 triamcinolone (KENALOG IN ORABASE) 0.1 % paste 0.25 Inches by DENTAL route twice daily. (Patient not taking: Reported on 12/27/2022) 2 g 1 Current Facility-Administered Medications Medication Dose Route Frequency Provider Last Rate Last Admin perflutren lipid microspheres 1.3 mL in NaCl (PF) 0.9% 10 mL injection (DEFINITY) INTRAVENOUS DIRECTED PRRhett Jacobs MD perflutren lipid microspheres 1.3 mL in NaCl (PF) 0.9% 10 mL injection (DEFINITY) INTRAVENOUS DIRECTED PRPeyton Mills APRN.BOOK SORTER sodium chloride 0.9 % (flush) 10 mL (BD POSIFLUSH) 10 mL INTRAVENOUS DIRECTED PRN Rhett Reece MD sodium chloride 0.9 % (flush) 10 mL (BD POSIFLUSH) 10 mL INTRAVENOUS DIRECTED PRN Peyton Holman APRN.ADAL BP Controlled (<130/80) Never done Alpha-1 Antitrypsin Deficiency Screening Never done Shingrix Vaccine(2 of 3) due on 12/18/2010 DTaP,Tdap,Td Vaccine(2 - Td or Tdap) due on 01/01/2017 Dilated Retinal Exam due on 03/12/2022 Depression Assessment Never done Influenza Vaccine(1) due on 01/03/2023 HbA1C due on 01/30/2023 EXAM: BP 128/62 Pulse 75 Resp 16 Wt 79.4 kg (175 lb) SpO2 96% BMI 29.12 kg/m Pleasant adult woman in no acute distress. Alert and oriented all spheres. Normal affect and cognition. Speech normal. No deficits to learning or comprehension. Recalls details recent and remote accurately. 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 Normal turgor. Respirations regular and unlabored. HEENT: NCAT. No scleral icterus or conjunctival injection. TM's clear. Nose and oropharynx free from injection or lesion. Oral membranes moist and pink. No cervical lymph nodes. Thyroid non-tender, no masses, or enlargement. Carotids pulses 2+/4+ without bruits. No JVD with HOB at 30 degrees. Chest is normal shape. Lungs are clear to all monae with good air exchange through out. HRRR without murmur or gallop. No lifts, heaves, or rubs. Extrem: no clubbing or cyanosis. Edema: none. Extremities are warm and pink with prompt capillary refill. ASSESSMENT/PLAN: 1. Hypertensive heart disease with chronic diastolic congestive heart failure (HCC) - ICD9: 402.91, 428.32, ICD10: I11.0, I50.32 (primary diagnosis) - Controlled - Continue current medications - Recommend home blood pressure monitoring, to bring results to next visit - Encouraged sodium restriction, DASH or Mediterranean diet - Recommend regular aerobic exercise - Compensated Continue current medications - CBC + DIFF - COMP METABOLIC PANEL 2. Chronic diastolic CHF (congestive heart failure) (HCC) - ICD9: 428.32, 428.0, ICD10: I50.32 As above 3. Aortic valve sclerosis - ICD9: 424.1, ICD10: I35.8 stable 4. Pericardial effusion - ICD9: 423.9, ICD10: I31.39 resolved 5. Hyperlipidemia, unspecified hyperlipidemia type - ICD9: 272.4, ICD10: E78.5 - Controlled - Continue current medications - Counseled on healthy diet and regular exercise - LIPID PANEL BASIC 6. Sleep apnea, unspecified type - ICD9: 780.57, ICD10: G47.30 Compliant nightly 7. Type 2 diabetes mellitus without complication, without long-term current use of insulin (HCC) - ICD9: 250.00, ICD10: E11.9 - Controlled Check a1c today and in 6 months - HGB A1C - HGB A1C 8. Obesity (BMI 30.0-34.9) - ICD9: 278.00, ICD10: E66.9 Steady progressive loss intentioinal 9. Gastroesophageal reflux disease without esophagitis - ICD9: 530.81, ICD10: K21.9 - Discussed lifestyle modifications including losing weight, limiting caffeine, no meals three hours before sleep, and head of bed elevation Controled on Protonix: continue med 10. Acute bilateral low back pain with right-sided sciatica - ICD9: 724.2, 724.3, 338.19, ICD10: M54.41 11. Inflammatory polyarthritis (HCC) - ICD9: 714.9, ICD10: M06.4 12. Spinal stenosis of lumbar region, unspecified whether neurogenic claudication present - ICD9: 724.02, ICD10: M48.061 stable Controlled on gabapentin. 13. Adjustment disorder with mixed anxiety and depressed mood - ICD9: 309.28, ICD10: F43.23 Stable on medication, continue - CBC + DIFF - COMP METABOLIC PANEL 14. Insomnia, unspecified type - ICD9: 780.52, ICD10: G47.00 Stable on medication 15. Small airways disease - ICD9: 518.89, ICD10: J98.4 stable Darius Black PA-C Some of this note may have been copied and pasted for the purpose of history context and comparison and has been adjusted for changes in prior data. documented in this encounter [facility] 01-22-2023 Note Patient Outreach (NE TNAV) LAURYN BRUMFIELD ([id number]) 1950 F Date Time Provider Department 01/22/23 SHAYNA RAI (PAS)V During your visit today, we recorded the following information about you: Shayna Rai 01/22/2023 11:42 AM Signed POPULATION HEALTH NAVIGATION OUTREACH Action/FYI Sent pt AdScoothart message Pt due for A1C after 01/30 CINDI Flu shot AD Patient Identified by Name and : NO Outreach Outcome/Action MyChart message sent Advance Directives sent Did you use a PCP flex slot to schedule this appointment? N/A Reason for Outreach Care Gap or Scheduling/Wellness visits Payer: Payor: [employer] MEDICARE / Plan: [employer] MEDICARE PPO / Product Type: PPO / Care Gap Reviewed:: Diabetic Eye Exam HBA1C Flu Vaccine AD Reminder: Reminder note to check Health Maintenance for items below Health Maintenance items due: BP Controlled (<130/80) Never done Alpha-1 Antitrypsin Deficiency Screening Never done Dilated Retinal Exam due on 03/12/2022 Depression Assessment Never done Covid-19 Vaccine(4 - Moderna series) due on 12/08/2022 Influenza Vaccine(1) due on 01/03/2023 Navigation Signature: Shayna Rai January 22, 2023 11:36 AM Allergies As of Date: 01/22/2023 Noted Allergy Reaction metal [Other] 01/01/2007 2 - Rash 9 - Itching NICKEL 01/01/2007 2 - Rash 9 - Itching AMLODIPINE 04/07/2012 7 - Swelling LISINOPRIL 11/25/2011 3 - Cough NITROFURANTOIN 09/02/2019 2 - Rash Comments: Possible skin reaction with nitrofurantion. Date Reviewed: 12/27/2022 Reviewed by: Lore Gonzalez RN - Fully Assessed Reason for Visit: Population Health Navigation Outreach [[id number]] Cmt: Giorgitamarana care gaps Prescriptions as of 01/23/2023 - lancets (ONE TOUCH DELICA) 33 gauge USE INSTRUCTED. Test 1-2 times daily. DX: E11.9 Insulin:No - carvedilol (COREG) 12.5 mg tablet TAKE 1 TABLET BY MOUTH TWICE A DAY - FLUoxetine (PROZAC) 20 mg capsule TAKE 4 CAPSULES BY MOUTH ONCE DAILY. - empagliflozin (JARDIANCE) 10 mg tablet Take 1 tablet by mouth once daily. Take 1 tablet once daily in the morning - colestipol (COLESTID) 1 gram tablet Take 1 tablet by mouth once daily. - traZODone (DESYREL) 50 mg tablet Take 1 tablet by mouth daily at bedtime. - pantoprazole DR (PROTONIX) 40 mg tablet Take 1 tablet by mouth twice daily. Take on empty stomach, 1/2 hr before meal. - atorvastatin (LIPITOR) 20 mg tablet Take 1 tablet by mouth daily at bedtime. For cholesterol. - metFORMIN (GLUCOPHAGE) 500 mg tablet Take 2 tablets by mouth twice daily with meals. - blood sugar diagnostic (Brijot Imaging SystemsTOUCH VERIO TEST STRIPS) test strip TEST BLOOD SUGAR(S) 2 TO 3 TIMES DAILY. DX: TYPE 2 DM - CONTROLLED E11.9 INSULIN: NO - hydroCHLOROthiazide 25 mg tablet Take 1 tablet by mouth once daily. - losartan (COZAAR) 100 mg tablet Take 1 tablet by mouth once daily. - mirabegron (MYRBETRIQ) 50 mg Tb24 Take 1 tablet by mouth once daily. - magnesium oxide 200 mg magnesium chew Take 1 tablet by mouth once daily. - spironolactone (ALDACTONE) 50 mg tablet Take 1 tablet by mouth once daily. - gabapentin (NEURONTIN) 300 mg capsule Take 1 capsule by mouth three times daily for 180 days. - albuterol HFA (PROVENTIL HFA, VENTOLIN HFA) 90 mcg/actuation inhaler Inhale 2 Puffs as instructed every 4 hours as needed for wheezing/shortness of breath. - triamcinolone (KENALOG IN ORABASE) 0.1 % paste 0.25 Inches by DENTAL route twice daily. - blood sugar diagnostic (BLOOD GLUCOSE TEST) test strip Test blood sugar(s) 2-3 times daily. Dx: Type 2 DM - Controlled E11.9 Insulin: No - ONETOUCH DELICA LANCETS 30 gauge misc TEST BLOOD SUGAR 2-3 TIMES DAILY Facility-Administered Medications as of 01/23/2023 - perflutren lipid microspheres 1.3 mL in NaCl (PF) 0.9% 10 mL injection (DEFINITY) - sodium chloride 0.9 % (flush) 10 mL (BD POSIFLUSH) - perflutren lipid microspheres 1.3 mL in NaCl (PF) 0.9% 10 mL injection (DEFINITY) - sodium chloride 0.9 % (flush) 10 mL (BD POSIFLUSH) Problem List As Of Date 01/22/2023 Noted Resolved BENIGN HYPERTENSION [I10] 10/09/2005 Myalgia and myositis, unspecified [[id number]] 10/09/2005 10/07/2016 Insomnia [G47.00] 10/09/2005 ESOPHAGEAL REFLUX [K21.9] 10/09/2005 Actinic keratosis [L57.0] 08/10/2008 07/04/2014 Inflamed seborrheic keratosis [L82.0] 08/10/2008 07/04/2014 Other chronic 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 radiation*08/10/2008 07/04/2014 SOLAR LENGINES///DYSCHROMIA OTHER [L81.9] 08/10/2008 07/04/2014 Hyperlipidemia [E78.5] 04/09/2010 Sleep apnea [G47.30] 10/19/2010 Glucose intolerance (pre-diabetes) [R73.03] 10/19/2010 09/09/2013 Arthritis of knee, degenerative [M17.9] 07/22/2011 10/07/2016 Type 2 diabetes mellitus without complication (*03/12/2013 Spinal stenosis of lumbar region [M48.061] 09/09/2013 Primary osteoarthritis of left knee [M17.12] 01/30/2015 Pain in left k (more content not included)... [facility] 01-22-2023 Note HNO ID: [id number] Author: Shayna Rai Service: ? Author Type: ? Type: Progress Notes Filed: 01/22/2023 11:42 AM Note Text: POPULATION HEALTH NAVIGATION OUTREACH Action/FYI Sent pt mychart message Pt due for A1C after 01/30 CINDI Flu shot AD Patient Identified by Name and : NO Outreach Outcome/Action MyChart message sent Advance Directives sent Did you use a PCP flex slot to schedule this appointment? N/A Reason for Outreach Care Gap or Scheduling/Wellness visits Payer: Payor: [employer] MEDICARE / Plan: [employer] MEDICARE PPO / Product Type: PPO / Care Gap Reviewed:: Diabetic Eye Exam HBA1C Flu Vaccine AD Reminder: Reminder note to check Health Maintenance for items below Health Maintenance items due: BP Controlled (<130/80) Never done Alpha-1 Antitrypsin Deficiency Screening Never done Dilated Retinal Exam due on 03/12/2022 Depression Assessment Never done Covid-19 Vaccine(4 - Moderna series) due on 12/08/2022 Influenza Vaccine(1) due on 01/03/2023 Navigation Signature: Shayna Rai January 22, 2023 11:36 AM [facility] 01-22-2023 History of Present illness Narrative POPULATION HEALTH NAVIGATION OUTREACH Action/FYI Sent pt mychart message Pt due for A1C after 01/30 CINDI Flu shot AD Patient Identified by Name and : NO Outreach Outcome/Action MyChart message sent Advance Directives sent Did you use a PCP flex slot to schedule this appointment? N/A Reason for Outreach Care Gap or Scheduling/Wellness visits Payer: Payor: AET MEDICARE / Plan: [employer] MEDICARE PPO / Product Type: PPO / Care Gap Reviewed:: Diabetic Eye Exam HBA1C Flu Vaccine AD Reminder: Reminder note to check Health Maintenance for items below Health Maintenance items due: BP Controlled (<130/80) Never done Alpha-1 Antitrypsin Deficiency Screening Never done Dilated Retinal Exam due on 03/12/2022 Depression Assessment Never done Covid-19 Vaccine(4 - Moderna series) due on 12/08/2022 Influenza Vaccine(1) due on 01/03/2023 Navigation Signature: Shayna Rai January 22, 2023 11:36 AM documented in this encounter [facility] 12-27-2022 Note HNO ID: [id number] Author: Mandeep Álvarez Service: ? Author Type: Physician Type: Progress Notes Filed: 12/27/2022 2:27 PM Note Text: Last saw halley black: 08/08/22 Subjective: Patient presents to clinic c/o painful toenails. They state that the nails are especially painful with shoe gear and pressure. Patient states that nails 1-5 b/l are painful. Patient admits to being diabetic. No other pedal complaints at this time. Patient states no change in medications or medical history since last visit. Objective: Patient presents to clinic ambulating in flip flops Vasc: DP and PT pulses are palpable bilateral. CFT is less than 5 seconds bilateral. Skin temperature is warm to cool proximal to distal bilateral. There is no edema or varicosities noted. Neuro: Protective sensation is intact to the foot and toes when tested with the 5.07 SWM bilateral. Vibratory sensation is decreased at the hallux IPJ bilateral. The hallux is downgoing bilateral. Derm: Nails 1-5 b/l are painful, discolored-yellow, thick, crumbly, dystrophic and with subungal debris. Skin is of normal turgor, texture and hair growth is present bilateral. There are callus to b/l 5th metatarsal. no ulcerations, scars, verruca or other lesions noted. Ortho: Muscle strength is 5/5 for all pedal groups tested. Ankle joint DF is full with the knee extended with no pain or crepitus noted. 1st MPJ ROM is full bilateral. Assessment: (B35.1) Onychomycosis (primary encounter diagnosis) (M79.675) Pain in toe of left foot (M79.674) Pain in toe of right foot (E11.42) Diabetic polyneuropathy associated with type 2 diabetes mellitus (HCC) callus Plan: Patient was seen and evaluated. Nails 1-5 bilateral were debrided in length and thickness Callus reduced to b/l 5th metatarsal with dremmel. Continue with good supportive shoes . Patient was instructed on the continued importance of diabetic foot care along with proper diet and keeping their blood sugar under control to prevent complications. Patient is to RTC in 3-4 months. Mandeep Álvarez DPM [facility] 12-27-2022 Note HNO ID: [id number] Author: Lore Gonzalez RN Service: ? Author Type: Registered Nurse Type: Progress Notes Filed: 12/27/2022 2:27 PM Note Text: Patient presents with: Left Foot - Established Patient, Follow Up, Diabetic Foot Care Right Foot - Established Patient, Follow Up, Diabetic Foot Care Patient presents for follow up nail care. Missed September appointment, Last seen in May. Denies any pain or problems with her feet. [facility] 12-27-2022 History of Present illness Narrative Last saw halley black: 08/08/22 Subjective: Patient presents to clinic c/o painful toenails. They state that the nails are especially painful with shoe gear and pressure. Patient states that nails 1-5 b/l are painful. Patient admits to being diabetic. No other pedal complaints at this time. Patient states no change in medications or medical history since last visit. Objective: Patient presents to clinic ambulating in flip flops Vasc: DP and PT pulses are palpable bilateral. CFT is less than 5 seconds bilateral. Skin temperature is warm to cool proximal to distal bilateral. There is no edema or varicosities noted. Neuro: Protective sensation is intact to the foot and toes when tested with the 5.07 SWM bilateral. Vibratory sensation is decreased at the hallux IPJ bilateral. The hallux is downgoing bilateral. Derm: Nails 1-5 b/l are painful, discolored-yellow, thick, crumbly, dystrophic and with subungal debris. Skin is of normal turgor, texture and hair growth is present bilateral. There are callus to b/l 5th metatarsal. no ulcerations, scars, verruca or other lesions noted. Ortho: Muscle strength is 5/5 for all pedal groups tested. Ankle joint DF is full with the knee extended with no pain or crepitus noted. 1st MPJ ROM is full bilateral. Assessment: (B35.1) Onychomycosis (primary encounter diagnosis) (M79.675) Pain in toe of left foot (M79.674) Pain in toe of right foot (E11.42) Diabetic polyneuropathy associated with type 2 diabetes mellitus (HCC) callus Plan: Patient was seen and evaluated. Nails 1-5 bilateral were debrided in length and thickness Callus reduced to b/l 5th metatarsal with dremmel. Continue with good supportive shoes . Patient was instructed on the continued importance of diabetic foot care along with proper diet and keeping their blood sugar under control to prevent complications. Patient is to RTC in 3-4 months. Mandeep Álvarez DPM Patient presents with: Left Foot - Established Patient, Follow Up, Diabetic Foot Care Right Foot - Established Patient, Follow Up, Diabetic Foot Care Patient presents for follow up nail care. Missed September appointment, Last seen in May. Denies any pain or problems with her feet. documented in this encounter [facility] 12-27-2022 Instructions Mandeep Álvarez - 12/27/2022 2:17 PM EDT Diabetes Foot Care Instructions When you have diabetes, proper foot care is very important. Poor foot care may lead to amputation of a foot or leg. As a person with diabetes, you are more vulnerable to foot problems, because diabetes can damage your nerves and reduce blood flow to your feet. Here are some diabetes foot care tips to follow: Wash and Dry Your Feet Daily Use mild soaps Use warm water Pat your skin dry; do not rub. Thoroughly dry your feet. After washing, use lotion on your feet to prevent cracking. Do not put lotion between your toes. Examine Your Feet Each Day Check the tops and bottoms of your feet. Have someone else look at your feet if you cannot see them. Check for dry, cracked skin. Look for blisters, cuts, scratches, or other sores. Check for redness, increased warmth, or tenderness when touching any area of your feet. Check for ingrown toenails, corns, and calluses. If you get a blister or sore from your shoes, do not pop it. Apply a bandage and wear a different pair of shoes. Take Care of Your Toenails Cut toenails after bathing, when they are soft. Cut toenails straight across and smooth with a nail file. Avoid cutting into the corners of toes. Do not cut cuticles. If you have neuropathy (or decreased sensation in your feet) a cup machine operator should always cut your toenails. Be Careful When Exercising Walk and exercise in comfortable shoes. Do not exercise when you have open sores on your feet. Protect Your Feet With Shoes and Socks Never go barefoot. Always protect your feet by wearing shoes or hard-soled slippers or footwear. Avoid shoes with high heels and pointed toes. Avoid shoes that expose your toes or heels (such as open-toed shoes or sandals). These types of shoes increase your risk for injury and potential infections. Try on new footwear with the type of socks you usually wear. Do not wear new shoes for more than an hour at a time. Change your socks daily. Look and feel inside your shoes before putting them on to make sure there are no foreign objects or rough areas. Avoid tight socks. Wear natural-fiber socks (cotton, wool, or a cotton-wool blend). Wear special shoes if your health care provider recommends them. Wear shoes/boots that will protect your feet from various weather conditions (cold, moisture, etc.). Make sure your shoes fit properly. If you have neuropathy (nerve damage), you may not notice that your shoes are too tight. Perform the footwear test described below. Footwear Test Use this simple test to see if your shoes fit correctly: Stand on a piece of paper. (Make sure you are standing and not sitting, because your foot changes shape when you stand.) Trace the outline of your foot. Trace the outline of your shoe. Compare the tracings: Is the shoe too narrow? Is your foot crammed into the shoe? The shoe should be at least 1/2 inch longer than your longest toe and as wide as your foot. Proper Shoe Choices The following types of shoes are best for people with diabetes Closed toes and heels Leather uppers without a seam inside At least 1/2 inch extra space at the end of your longest toe Inside of shoe should be soft with no rough areas Outer sole should be made of stiff material Shoes should be at least as wide as your feet Tips for Foot Care in Diabetes Don't wait to treat a minor foot problem if you have diabetes. Follow your health care provider's guidelines and first aid guidelines. Report foot injuries and infections to your health care provider immediately. Check water temperature with your elbow, not your foot. Do not use a heating pad on your feet. Do not cross your legs. Do not self-treat your corns, calluses, or other foot problems. Go to your health care provider or cup machine operator to treat these conditions. documented in this encounter [facility] 12-05-2022 Miscellaneous Notes Patient has been identified by name and date of : Yes Last office visit in this department: 08/08/2022 Labs-07/30/22 NOV-02/07/23 RX INSTRUCTIONS: Patient aware RX will be sent to pharmacy. No need to notify patient. Patient phones requesting refills as follows: Requested Prescriptions Pending Prescriptions Disp Refills lancets (ONE TOUCH DELICA) 33 gauge 100 Each 3 Sig: USE INSTRUCTED. Test 1-2 times daily. DX: E11.9 Insulin:No Please review and advise. Philomena Patel documented in this encounter [facility] 12-04-2022 Miscellaneous Notes Patient's request for medication is as follows: Requested Prescriptions Pending Prescriptions Disp Refills carvedilol (COREG) 12.5 mg tablet [Pharmacy Med Name: CARVEDILOL 12.5 MG TABLET] 180 tablet 1 Sig: TAKE 1 TABLET BY MOUTH TWICE A DAY Last seen in [place] 12/10/2021. Next visit in [place] 06/02/2023. Prescription(s) as above. Please process accordingly. Nancy Arreola LPN documented in this encounter [facility] 09-16-2022 Miscellaneous Notes Pharmacy verified in [facility] Patient has been identified by name and date of : Yes Patient aware RX will be sent to pharmacy. No need to notify patient. Patient phones for refill(s): Requested Prescriptions Pending Prescriptions Disp Refills colestipol (COLESTID) 1 gram tablet 90 tablet 1 Sig: Take 1 tablet by mouth once daily. traZODone (DESYREL) 50 mg tablet 90 tablet 2 Sig: Take 1 tablet by mouth daily at bedtime. Date of last office visit : 08/08/2022 Date of next office visit : 02/07/2023 Last 2 Encounter Wt Readings: Date: Wt: 08/08/2022 82.6 kg (182 lb) 05/02/2022 84.4 kg (186 lb) Not applicable Please advise. Nancy Quiñones Pss documented in this encounter [facility] 09-14-2022 Miscellaneous Notes baked and graphite inspector sent in a refill for pt. Pt notified Fatmata Lowe LPN Rx sent as requested. Patient calling with medication/refill: Patient/caregiver requesting refill of Jardiance be called to [facility] pharmacy at [phone].. Patient denies any new or worsening symptoms of which a provider is not aware:Yes . Pt did not request short term script from pharmacy documented in this encounter [facility] 09-05-2022 Miscellaneous Notes Patient has been identified by name and date of : Yes Requested Prescriptions Pending Prescriptions Disp Refills pantoprazole DR (PROTONIX) 40 mg tablet 180 tablet 1 Sig: Take 1 tablet by mouth twice daily. Take on empty stomach, 1/2 hr before meal. atorvastatin (LIPITOR) 20 mg tablet 90 tablet 1 Sig: Take 1 tablet by mouth daily at bedtime. For cholesterol. metFORMIN (GLUCOPHAGE) 500 mg tablet 360 tablet 3 Sig: Take 2 tablets by mouth twice daily with meals. RX INSTRUCTIONS: Patient aware RX will be sent to pharmacy. No need to notify patient. Yaz Galindo Ma documented in this encounter [facility] 08-16-2022 Miscellaneous Notes Pharmacy verified in Epic Patient has been identified by name and date of : Yes Patient aware RX will be sent to pharmacy. No need to notify patient. Patient phones for refill(s): Requested Prescriptions Pending Prescriptions Disp Refills blood sugar diagnostic (ONETOUCH VERIO TEST STRIPS) test strip 100 Strip 11 Sig: TEST BLOOD SUGAR(S) 2 TO 3 TIMES DAILY. DX: TYPE 2 DM - CONTROLLED E11.9 INSULIN: NO hydroCHLOROthiazide 25 mg tablet 90 tablet 2 Sig: Take 1 tablet by mouth once daily. losartan (COZAAR) 100 mg tablet 90 tablet 3 Sig: Take 1 tablet by mouth once daily. Date of last office visit : 08/08/2022 Date of next office visit : 02/07/2023 Last 2 Encounter Wt Readings: Date: Wt: 08/08/2022 82.6 kg (182 lb) 05/02/2022 84.4 kg (186 lb) Not applicable Please advise. Nancy Quiñones Pss documented in this encounter [facility] 08-08-2022 Note HNO ID: [id number] Author: Darius Black PA-C Service: ? Author Type: Physician Ground Operations Superintendent Type: Progress Notes Filed: 08/08/2022 3:52 PM Note Text: 72 year old female with c/o here with daughter for follow up Having right flank/ back pain No urinary sx Chronic issues with back , left knee 3 falls since April: - slipped going up outside steps, struggled to get back up - Slid of bed and couldn't get back up - Third time again slid out of bed. Used rolled up rugs to get back in bed. Has gait insecurity. Left knee gives way on steps, uneven terrain. Had cold for 10 days but now recovered. Hypertensive heart disease with chronic diastolic congestive heart failure (hcc) (primary encounter diagnosis) Chronic diastolic chf (congestive heart failure) (hcc) Aortic valve sclerosis Pericardial effusion Essential hypertension, benign Hyperlipidemia, unspecified hyperlipidemia type 01/14/2022 NM cardiac perfusion stress/pharmacologic/Dr. David Emmanuel photoengraving helper: No scintigraphic evidence for inducible ischemia, no evidence of scarred myocardium. LV size and LV SF WNL, RV size and RV SF WNL, gated LVEF 72% 01/10/2022 echocardiogram: LV size and LV SF WNL, wall motion all scored within normal limits, RV size and RV SF WNL. RVSP 34 mmHg consistent with normal, RAP 3 mmHg although IVC not seen. No significant valvular abnormalities. MVR 0-1+, TVR 0-1+, AVR 01+ with peak gradient 7 mmHg. Aorta normal in size. 01/02/2022 EKG: Normal sinus rhythm, nonspecific ST abnormality. HCTZ 25mg daily Carvedilol 12.5mg daily Spironalactone 50mg daily Colestid 1 gram daily Atorvastatin 20mg daily HS Use of NTG: Chest pain, arm, jaw pain, neck, or upper back pain suggestive of angina: No. SOB: if walks far or hard Dyspnea with exertion: as above orthopnea: No racing or irregular heartbeats: No palpitations: No syncopal sx: No Unexplainable fatigue No Leg swelling: A little bit, not bad Nausea: No diaphoresis: No Heartburn: No Claudication: No Smoking: No Following Low cholesterol, high fiber diet? Yes If on statin: muscle aches? No If on statin: GI sx or diarrhea? Chronic diarrhea: taking colestipol daily which helps Additional history none. Lab review: Component Latest Ref Rng AND Units 09/03/2021 11/21/2021 01/02/2022 07/30/2022 WBC 3.70 - 11.00 k/uL 9.32 10.34 9.35 RBC 3.90 - 5.20 m/uL 4.30 4.51 4.41 Hemoglobin 11.5 - 15.5 g/dL 12.8 13.6 13.2 Hematocrit 36.0 - 46.0 % 38.0 38.9 37.9 MCV 80.0 - 100.0 fL 88.4 86.3 85.9 MCH 26.0 - 34.0 pg 29.8 30.2 29.9 MCHC 30.5 - 36.0 g/dL 33.7 35.0 34.8 RDW-CV 11.5 - 15.0 % 13.9 13.0 13.0 Platelet Count 150 - 400 k/uL 226 211 195 MPV 9.0 - 12.7 fL 12.0 12.5 11.9 Neut% % 56.8 59.1 64.0 Abs Neut (ANC) 1.45 - 7.50 k/uL 5.29 6.11 5.99 Lymph% % 32.1 30.3 24.1 Abs Lymph 1.00 - 4.00 k/uL 2.99 3.13 2.25 [place]% % 7.8 7.4 7.7 Abs [place] <0.87 k/uL 0.73 0.77 0.72 Eosin% % 2.0 1.9 2.9 Abs Eosin <0.46 k/uL 0.19 0.20 0.27 Baso% % 0.9 0.9 1.1 Abs Baso <0.11 k/uL 0.08 0.09 0.10 Immature Gran % % 0.4 0.4 0.2 IMMATURE GRANS (ABS) <0.10 k/uL 0.04 0.04 <0.03 NRBC /100 WBC 0.0 0.0 0.0 Absolute nRBC <0.01 k/uL <0.01 <0.01 <0.01 DTYPE Auto Auto Auto Protein, Total 6.3 - 8.0 g/dL 6.7 6.4 6.3 Albumin 3.9 - 4.9 g/dL 4.2 4.2 4.2 Calcium 8.5 - 10.2 mg/dL 9.2 9.9 9.3 Bilirubin, Total 0.2 - 1.3 mg/dL 0.5 0.5 0.3 Alkaline Phosphatase 34 - 123 U/L 90 82 91 AST 13 - 35 U/L 23 27 18 ALT 7 - 38 U/L 17 21 18 Glucose 74 - 99 mg/dL 197 (H) 172 (H) 263 (H) BUN 7 - 21 mg/dL 15 12 18 Creatinine 0.58 - 0.96 mg/dL 0.54 (L) 0.56 (L) 0.59 Sodium 136 - 144 mmol/L 137 139 141 Potassium 3.7 - 5.1 mmol/L 4.1 4.7 4.7 Chloride 97 - 105 mmol/L 103 102 106 (H) CO2 22 - 30 mmol/L 21 (L) 26 29 Anion Gap 9 - 18 mmol/L 13 11 6 (L) eGFR >=60 mL/min/1.73mA? 97 97 95 Cholesterol, Total <200 mg/dL 137 122 Triglyceride <150 mg/dL 175 (H) 116 HDL Cholesterol >39 mg/dL 47 42 Non HDL Cholesterol <130 mg/dL 90 80 Fasting Time hrs 12 12 VLDL Cholesterol <30 mg/dL 35 (H) 23 TC:HDL Ratio <5.10 2.91 2.90 LDL Cholesterol <100 mg/dL 55 57 LDL:HDL Ratio <2.54 1.17 1.36 Lung nodule Sleep apnea, unspecified type Asthma with COPD Small Airway disease Blueberry Grower: Dr. Christopher Dunlap, last visit 05/02/2022. Stable, continue Albuterol. Interval history: no changes. Current medications: Albuterol HFA 90mcg 2 puffs q4h rn 01/29/2022 nitric oxide inhaled: 19.0 WNL 01/29/2022 PFT: Spirometry is normal. Small airways obstruction. 11/30/2021 CT chest WO: 1. Subcentimeter pulmonary nodules measuring up to 5 mm 2. Scattered calcified granulomas 3. Small pericardial effusion 4. No pleural effusion or consolidation No follow up recommended Current medications: Albuteral MDI 2 puffs q4h prn Worsening shortness of breath: No. Cough: No. Wheezing: No. Smoking: No. Compliant with medications: Yes. Using rescue inhaler: once. Type 2 d (more content not included)... 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 Aundrea Cantu ([place]) documented in this encounter [facility] 08-08-2022 History of Present illness Narrative 72 year old female with c/o here with daughter for follow up Having right flank/ back pain No urinary sx Chronic issues with back , left knee 3 falls since April: - slipped going up outside steps, struggled to get back up - Slid of bed and couldn't get back up - Third time again slid out of bed. Used rolled up rugs to get back in bed. Has gait insecurity. Left knee gives way on steps, uneven terrain. Had cold for 10 days but now recovered. Hypertensive heart disease with chronic diastolic congestive heart failure (hcc) (primary encounter diagnosis) Chronic diastolic chf (congestive heart failure) (hcc) Aortic valve sclerosis Pericardial effusion Essential hypertension, benign Hyperlipidemia, unspecified hyperlipidemia type 01/14/2022 NM cardiac perfusion stress/pharmacologic/Dr. David Emmanuel photoengraving helper: No scintigraphic evidence for inducible ischemia, no evidence of scarred myocardium. LV size and LV SF WNL, RV size and RV SF WNL, gated LVEF 72% 01/10/2022 echocardiogram: LV size and LV SF WNL, wall motion all scored within normal limits, RV size and RV SF WNL. RVSP 34 mmHg consistent with normal, RAP 3 mmHg although IVC not seen. No significant valvular abnormalities. MVR 0-1+, TVR 0-1+, AVR 01+ with peak gradient 7 mmHg. Aorta normal in size. 01/02/2022 EKG: Normal sinus rhythm, nonspecific ST abnormality. HCTZ 25mg daily Carvedilol 12.5mg daily Spironalactone 50mg daily Colestid 1 gram daily Atorvastatin 20mg daily HS Use of NTG: Chest pain, arm, jaw pain, neck, or upper back pain suggestive of angina: No. SOB: if walks far or hard Dyspnea with exertion: as above orthopnea: No racing or irregular heartbeats: No palpitations: No syncopal sx: No Unexplainable fatigue No Leg swelling: A little bit, not bad Nausea: No diaphoresis: No Heartburn: No Claudication: No Smoking: No Following Low cholesterol, high fiber diet? Yes If on statin: muscle aches? No If on statin: GI sx or diarrhea? Chronic diarrhea: taking colestipol daily which helps Additional history none. Lab review: Component Latest Ref Rng & Units 09/03/2021 11/21/2021 01/02/2022 07/30/2022 WBC 3.70 - 11.00 k/uL 9.32 10.34 9.35 RBC 3.90 - 5.20 m/uL 4.30 4.51 4.41 Hemoglobin 11.5 - 15.5 g/dL 12.8 13.6 13.2 Hematocrit 36.0 - 46.0 % 38.0 38.9 37.9 MCV 80.0 - 100.0 fL 88.4 86.3 85.9 MCH 26.0 - 34.0 pg 29.8 30.2 29.9 MCHC 30.5 - 36.0 g/dL 33.7 35.0 34.8 RDW-CV 11.5 - 15.0 % 13.9 13.0 13.0 Platelet Count 150 - 400 k/uL 226 211 195 MPV 9.0 - 12.7 fL 12.0 12.5 11.9 Neut% % 56.8 59.1 64.0 Abs Neut (ANC) 1.45 - 7.50 k/uL 5.29 6.11 5.99 Lymph% % 32.1 30.3 24.1 Abs Lymph 1.00 - 4.00 k/uL 2.99 3.13 2.25 [place]% % 7.8 7.4 7.7 Abs [place] <0.87 k/uL 0.73 0.77 0.72 Eosin% % 2.0 1.9 2.9 Abs Eosin <0.46 k/uL 0.19 0.20 0.27 Baso% % 0.9 0.9 1.1 Abs Baso <0.11 k/uL 0.08 0.09 0.10 Immature Gran % % 0.4 0.4 0.2 IMMATURE GRANS (ABS) <0.10 k/uL 0.04 0.04 <0.03 NRBC /100 WBC 0.0 0.0 0.0 Absolute nRBC <0.01 k/uL <0.01 <0.01 <0.01 DTYPE Auto Auto Auto Protein, Total 6.3 - 8.0 g/dL 6.7 6.4 6.3 Albumin 3.9 - 4.9 g/dL 4.2 4.2 4.2 Calcium 8.5 - 10.2 mg/dL 9.2 9.9 9.3 Bilirubin, Total 0.2 - 1.3 mg/dL 0.5 0.5 0.3 Alkaline Phosphatase 34 - 123 U/L 90 82 91 AST 13 - 35 U/L 23 27 18 ALT 7 - 38 U/L 17 21 18 Glucose 74 - 99 mg/dL 197 (H) 172 (H) 263 (H) BUN 7 - 21 mg/dL 15 12 18 Creatinine 0.58 - 0.96 mg/dL 0.54 (L) 0.56 (L) 0.59 Sodium 136 - 144 mmol/L 137 139 141 Potassium 3.7 - 5.1 mmol/L 4.1 4.7 4.7 Chloride 97 - 105 mmol/L 103 102 106 (H) CO2 22 - 30 mmol/L 21 (L) 26 29 Anion Gap 9 - 18 mmol/L 13 11 6 (L) eGFR >=60 mL/min/1.73m 97 97 95 Cholesterol, Total <200 mg/dL 137 122 Triglyceride <150 mg/dL 175 (H) 116 HDL Cholesterol >39 mg/dL 47 42 Non HDL Cholesterol <130 mg/dL 90 80 Fasting Time hrs 12 12 VLDL Cholesterol <30 mg/dL 35 (H) 23 TC:HDL Ratio <5.10 2.91 2.90 LDL Cholesterol <100 mg/dL 55 57 LDL:HDL Ratio <2.54 1.17 1.36 Lung nodule Sleep apnea, unspecified type Asthma with COPD Small Airway disease Blueberry Grower: Dr. Christopher Dunlap, last visit 05/02/2022. Stable, continue Albuterol. Interval history: no changes. Current medications: Albuterol HFA 90mcg 2 puffs q4h rn 01/29/2022 nitric oxide inhaled: 19.0 WNL 01/29/2022 PFT: Spirometry is normal. Small airways obstruction. 11/30/2021 CT chest WO: 1. Subcentimeter pulmonary nodules measuring up to 5 mm 2. Scattered calcified granulomas 3. Small pericardial effusion 4. No pleural effusion or consolidation No follow up recommended Current medications: Albuteral MDI 2 puffs q4h prn Worsening shortness of breath: No. Cough: No. Wheezing: No. Smoking: No. Compliant with medications: Yes. Using rescue inhaler: once. Type 2 diabetes mellitus without complication, without long-term current use of insulin (hcc) Current medications: Metformin 500mg 2 tabs twice a day Taking medication as directed consistently? No Medication side effects: none Medical Issues / Complications: hypertension, hyperlipidemia, and cardiovascular disease Checking blood sugars at home? Yes. Morning [phone] 2 Noon 241-221- Evening 197 Bedtime [phone] Watching diet? No Physical Activity: Sedentary Hypoglycemic spells? No Any visual disturbance? No Chest pain? No New numbness, tingling or loss of sensation? No Any recent foot problems, sores or rashes? No Any recent or sudden weight loss? No Change in urination? No. If yes: urinates all the time Any recent illness? Yes URI Last eye exam: [facility] Dr. Barnes. Last foot exam: due. HBA1C: Hemoglobin A1C (%) Date Value 07/30/2022 7.5 09/03/2021 6.9 08/14/2020 6.9 06/16/2019 6.7 ) CMP: Glucose 263 07/30/2022 BUN 18 07/30/2022 Creatinine 0.59 07/30/2022 Sodium 141 07/30/2022 Potassium 4.7 07/30/2022 Chloride 106 07/30/2022 CO2 29 07/30/2022 Protein, Total 6.3 07/30/2022 Albumin 4.2 07/30/2022 Calcium 9.3 07/30/2022 Alkaline Phosphatase 91 07/30/2022 Bilirubin, Total 0.3 07/30/2022 AST 18 07/30/2022 ALT 18 07/30/2022 Last 2 Encounter Wt Readings: Date: Wt: 05/02/2022 84.4 kg (186 lb) 02/07/2022 86.2 kg (190 lb) Gastroesophageal reflux disease without esophagitis Current medication: Pantoprazole DR 40mg daily AC Current symptoms: not on medication but 1-2 days without and issues. Last Mg level if on PPI chronically: yes, WNL. Heartburn is controlled: Yes. Dysphagia: No. Bloody or black stools: No. Bowel changes: No. Last EGD and/or colonoscopy: EGD 04/01/2018 Dr. Miller, WNL, no specimens 09/01/2014 Sigmoidoscopy: colon WNL, no specimens. Obesity (bmi 30.0-34.9) Vitals 02/07/2022 05/02/2022 08/08/2022 WEIGHT in POUNDS 190 lb 186 lb 182 lb WEIGHT in KILOGRAMS 86.183 kg 84.369 kg 82.555 kg HEIGHT in INCHES Adjustment disorder with mixed anxiety and depressed mood Insomnia, unspecified type Current medications: Trazodone 50mg daily HS Fluoxetine 80mg Oxazepam in past- asking for refill, no filled since 2017 Mood okay Low level anxiety PHQ-9 11/04/2017 08/20/2021 08/08/2022 Score 0 6 4 SANTY - 7 SCORES 08/20/2021 08/08/2022 SANTY-7 Score 4 5 Spinal stenosis of lumbar region, unspecified whether neurogenic claudication present Primary osteoarthritis of left knee Inflammatory polyarthritis (hcc) Current medications: Gabaentin 300mg three times daily Stopped seeing Dr. Rose due to lack of confidence. 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 On prior reviewed, arthritis is degenerative, OA. OAB Current medications: Mybetriq 25mg daily Myrbetriq helps but still has to wear pad everywhere. + urge, large amounts, overnight wetting, wetting with stress such as cough/ laugh HISTORIES FAMILY HISTORY Problem Relation Age of Onset Cancer Mother bladder ca. Stroke Mother Alzheimer's Disease Father Osteoporosis Sister Cancer Brother kidney ca./renal cell Coronary Artery Disease Brother [place], has a bad disc is the same as above Cancer Maternal Grandmother liver ca. Asthma Daughter Thyroid Daughter Stroke Maternal Aunt PAST MEDICAL HISTORY Diagnosis Date Cardiomyopathy in other diseases classified elsewhere echo 2008-normal EF Complication of anesthesia Diabetes mellitus (HCC) Diverticulosis of colon (without mention of hemorrhage) Esophageal reflux Gastroesophageal reflux Fibromyalgia Internal hemorrhoids without mention of complication Mental disorder Sleep apnea On CPAP Unspecified essential hypertension Essential hypertension PAST SURGICAL HISTORY Procedure Laterality Date COLONOSCOPY FLX DX W/COLLJ SPEC WHEN PFRMD 1999 Colonoscopy-due 2009 COLONOSCOPY FLX DX W/COLLJ SPEC WHEN PFRMD 01/29/10 CRANIEC TREPHINE BONE FLP BRAIN TUMOR SUPRTENTOR 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 Hasn't smoked since she was 48yrs. Vaping Use Vaping Use: Never used Substance Use Topics Alcohol use: No Drug use: No ACTIVE PROBLEM LIST Essential Hypertension, Benign Insomnia Esophageal Reflux Hyperlipidemia Sleep Apnea Type 2 Diabetes Mellitus Without Complication ([facility]) Spinal Stenosis of Lumbar Region Primary Osteoarthritis of Left Knee Adjustment Disorder With Mixed Anxiety and Depressed Mood Obesity (Bmi 30.0-34.9) Inflammatory Polyarthritis ([facility]) Family History of Ischemic Heart Disease Aortic Valve Sclerosis Lung Nodule Acquired Deafness of Right Ear Acute Bilateral Low Back Pain With Right-Sided Sciatica Chronic Diastolic Chf (Congestive Heart Failure) ([facility]) Current Outpatient Medications Medication Sig Dispense Refill magnesium oxide 200 mg magnesium chew Take 1 tablet by mouth once daily. 90 tablet 3 mirabegron (MYRBETRIQ) 25 mg Tb24 Take 1 tablet by mouth once daily. 30 tablet 2 spironolactone (ALDACTONE) 50 mg tablet Take 1 tablet by mouth once daily. 90 tablet 3 gabapentin (NEURONTIN) 300 mg capsule Take 1 capsule by mouth three times daily for 180 days. 270 capsule 3 albuterol HFA (PROVENTIL HFA, VENTOLIN HFA) 90 mcg/actuation inhaler Inhale 2 Puffs as instructed every 4 hours as needed for wheezing/shortness of breath. 1 Each 5 oxybutynin ER (DITROPAN XL) 10 mg 24 hr tablet Take 1 tablet by mouth once daily. 30 tablet 5 traZODone (DESYREL) 50 mg tablet Take 1 tablet by mouth daily at bedtime. 90 tablet 2 hydroCHLOROthiazide (HYDRODIURIL, ESIDRIX) 25 mg tablet Take 1 tablet by mouth once daily. 90 tablet 2 carvedilol (COREG) 12.5 mg tablet Take 1 tablet by mouth twice daily. [address] (PROTONIX) 40 mg tablet Take 1 tablet by mouth twice daily. Take on empty stomach, 1/2 hr before meal. 180 tablet 1 colestipol (COLESTID) 1 gram tablet Take 1 tablet by mouth once daily. 90 tablet 1 lancets (ONE TOUCH DELICA) 33 gauge USE INSTRUCTED. Test 1-2 times daily. DX: E11.9 Insulin:No 100 Each 3 triamcinolone (KENALOG IN ORABASE) 0.1 % paste 0.25 Inches by DENTAL route twice daily. (Patient taking differently: 0.25 Inches by DENTAL route as needed.) 2 g 1 losartan (COZAAR) 100 mg tablet Take 1 tablet by mouth once daily. 90 tablet 3 metFORMIN (GLUCOPHAGE) 500 mg tablet Take 2 tablets by mouth twice daily with meals. 360 tablet 3 atorvastatin (LIPITOR) 20 mg tablet Take 1 tablet by mouth daily at bedtime. For cholesterol. 90 tablet 1 FLUoxetine (PROZAC) 20 mg capsule TAKE 4 CAPSULES BY MOUTH ONCE DAILY. 360 capsule 1 blood sugar diagnostic (BLOOD GLUCOSE TEST) test strip Test blood sugar(s) 2-3 times daily. Dx: Type 2 DM - Controlled E11.9 Insulin: No 90 Strip 5 blood sugar diagnostic (ONETOUCH VERIO) test strip TEST BLOOD SUGAR(S) 2 TO 3 TIMES DAILY. DX: TYPE 2 DM - CONTROLLED E11.9 INSULIN: NO 100 Strip 11 ONETOUCH DELICA LANCETS 30 gauge misc TEST BLOOD SUGAR 2-3 TIMES DAILY 100 Each 3 Current Facility-Administered Medications Medication Dose Route Frequency Provider Last Rate Last Admin perflutren lipid microspheres 1.3 mL in NaCl (PF) 0.9% 10 mL injection (DEFINITY) INTRAVENOUS DIRECTED PRN Peyton Holman APRN.BOOK SORTER sodium chloride 0.9 % (flush) 10 mL (BD POSIFLUSH) 10 mL INTRAVENOUS DIRECTED PRN Peyton Holman APRN.BOOK SORTER perflutren lipid microspheres 1.3 mL in NaCl (PF) 0.9% 10 mL injection (DEFINITY) INTRAVENOUS DIRECTED PRN Rhett Reece MD sodium chloride 0.9 % (flush) 10 mL (BD POSIFLUSH) 10 mL INTRAVENOUS DIRECTED PRN Rhett Reece MD BP CONTROLLED (<130/80) Never done ALPHA-1 ANTITRYPSIN DEFICIENCY SCREENING Never done COVID-19 VACCINE(3 - Booster for Moderna series) due on 11/29/2020 DILATED RETINAL EXAM due on 03/12/2022 ADVANCE DIRECTIVE DISCUSSION due on 05/05/2022 DEPRESSION ASSESSMENT Never done DIABETIC FOOT EXAM due on 08/20/2022 URINE ALBUMIN:CREATININE RATIO due on 09/03/2022 EXAM: BP 134/66 Pulse 76 Resp 14 Wt 82.6 kg (182 lb) SpO2 97% BMI 30.29 kg/m Pleasant overweight but healthy appearing adult woman in no acute distress. Alert and oriented all spheres. Normal affect and cognition. Speech normal. No deficits to learning or comprehension. Skin warm, dry, pink to lips and nailbeds. Normal turgor. Respirations regular and unlabored. HEENT: NCAT. No scleral icterus or conjunctival injection. TM's clear. Nose and oropharynx free from injection or lesion. Oral membranes moist and pink. No cervical lymph nodes. Thyroid non-tender, no masses, or enlargement. Carotids pulses 2+/4+ without bruits. No JVD with HOB at 30 degrees. Chest is normal shape. Lungs are clear to all monae with good air exchange through out. HRRR without murmur or gallop. No lifts, heaves, or rubs. Abdomen: active bowel sounds throughout, soft, nontender, no masses or organomegaly. No CVAT. Extrem: no clubbing, cyanosis, edema. Distal pulses 2+/4, prompt capillary refill. Back: tender Feet:Shoes and socks removed, No deformities, ulcers, calluses, normal distal pulses, and sensitive to 10 gm monofilament Some of this note may have been copied and pasted for the purpose of history context and comparison. ASSESSMENT/PLAN: 1. Hypertensive heart disease with chronic diastolic congestive heart failure (HCC) - ICD9: 402.91, 428.32, ICD10: I11.0, I50.32 (primary diagnosis) - good control - Recommended regular aerobic exercise. - Recommend home blood pressure monitoring, to bring results in on next visit - Goal of BP <130/80 2. Chronic diastolic CHF (congestive heart failure) (HCC) - ICD9: 428.32, 428.0, ICD10: I50.32 - MAGNESIUM BLD 3. Aortic valve sclerosis - ICD9: 424.1, ICD10: I35.8 - MAGNESIUM BLD 4. Pericardial effusion - ICD9: 423.9, ICD10: I31.39 Resolved on most recent echo 5. Essential hypertension, benign - ICD9: 401.1, ICD10: I10 - good control - Continue current medication(s) - Recommended regular aerobic exercise. - Recommend home blood pressure monitoring, to bring results in on next visit - Goal of BP <130/80 - COMP METABOLIC PANEL - CBC + DIFF 6. Hyperlipidemia, unspecified hyperlipidemia type - ICD9: 272.4, ICD10: E78.5 - good control - Continue current medication. - Encouraged following a low fat, low cholesterol diet. - Discussed the benefits of regular aerobic exercise and weight loss. - LIPID PANEL BASIC - COMP METABOLIC PANEL 7. Lung nodule - ICD9: 793.11, ICD10: R91.1 No follow up recommended. Add to history and resolve 8. Sleep apnea, unspecified type - ICD9: 780.57, ICD10: G47.30 Compliant CPAP 9. Type 2 diabetes mellitus without complication, without long-term current use of insulin (HCC) - ICD9: 250.00, ICD10: E11.9 - Worsening control - Continue current medications - Start empagliflozin (Jardiance) - ALBUMIN/CREAT RATIO RND UR - HGB A1C - LIPID PANEL BASIC - COMP METABOLIC PANEL - CBC + DIFF 10. Gastroesophageal reflux disease without esophagitis - ICD9: 530.81, ICD10: K21.9 - Discussed lifestyle modifications including losing weight, limiting caffeine, no meals three hours before sleep, and head of bed elevation - MAGNESIUM BLD 11. Obesity (BMI 30.0-34.9) - ICD9: 278.00, ICD10: E66.9 Weight decreasing - Behavioral intervention 12. Adjustment disorder with mixed anxiety and depressed mood - ICD9: 309.28, ICD10: F43.23 Stable Declined oxazepam with discussion of use for minor depressive sx Discussed custodial effects on memory, habit forming. Low PHQ and GAD7 scores - COMP METABOLIC PANEL - CBC + DIFF 13. Insomnia, unspecified type - ICD9: 780.52, ICD10: G47.00 Feels Trazedone helps significantly. 14. Spinal stenosis of lumbar region, unspecified whether neurogenic claudication present - ICD9: 724.02, ICD10: M48.061 Persistent sx with spinal stenosis 15. Primary osteoarthritis of left knee - ICD9: 715.16, ICD10: M17.12 - CONSULT TO ORTHOPAEDICS 16. Inflammatory polyarthritis (HCC) - ICD9: 714.9, ICD10: M06.4 Uncertain diagnosis- no records to indicate serology. 17. Need for COVID-19 vaccine - ICD9: V04.89, ICD10: Z23 - [email or web address] COVID-19 BIVALENT BOOSTER VACCINE, AGE 12+ YR 18. Urge incontinence - ICD9: 788.31, ICD10: N39.41 Increase myrbetriq to 50mg daily Timed voids through day to avoid overfilling bladder recommended. - CONSULT TO FEMALE UROLOGY/URO GYNECOLOGY 50 minute visit Darius Black PA-C documented in this encounter [facility] 07-02-2022 Miscellaneous Notes Patient notified and verbalized understanding. Fany Weston MA ----- Message from Darius Black PA-C sent at 07/01/2022 5:52 PM EST ----- Please call and advise patient mammogram was WNL. It should re repeated in 1 year for screening. Thanks, Dominique Black PA-C documented in this encounter [facility] 07-01-2022 Miscellaneous Notes July 02, 2022 PID: [id number] Lauryn Brumfield [address] [place] [address] Dear Ms. Brumfield, We are pleased to inform you that the results of your recent breast imaging exam on 06/28/2022 are normal. Your mammogram demonstrates that you [...] report will be kept on file at [facility] as part of your permanent medical record and are available for your continuing care. Thank you for allowing us to help in meeting your health care needs. Sincerely, Dr. Mena Interpreting Radiologist [facility] (Normal over 40) documented in this encounter [facility] 06-28-2022 Note HNO ID: [id number] Author: RT Elly(Thi) Service: ? Author Type: Technologist Type: Progress Notes Filed: 06/28/2022 12:39 PM Note Text: Radiology Service Progress Note PATIENT NAME: Lauryn Brumfield DATE OF SERVICE: June 28, 2022 TIME: 12:39 PM PATIENT IDENTITY VERIFICATION COMPLETED USING TWO (2) IDENTIFIERS: Name and Date of confirmed by patient verbally. FALL SCREENING: Has the patient had 2 falls in the last year or 1 fall with injury or currently using an Ambulatory Assistive Device (Walker, Cane, Wheelchair, Crutches, etc.)? No PATIENT GENDER DATA: Female. status: : No status: NO. PATIENT RELEVANT IMPLANT DATA REVIEWED: Not Applicable RADIOLOGY DEPARTMENT: Mammography PERIPHERAL IV DATA: Not applicable SIGNED BY: RT Elly(R) June 28, 2022 12:39 PM [facility] 06-28-2022 History of Present illness Narrative Radiology Service Progress Note PATIENT NAME: Lauryn Brumfield DATE OF SERVICE: June 28, 2022 TIME: 12:39 PM PATIENT IDENTITY VERIFICATION COMPLETED USING TWO (2) IDENTIFIERS: Name and Date of confirmed by patient verbally. FALL SCREENING: Has the patient had 2 falls in the last year or 1 fall with injury or currently using an Ambulatory Assistive Device (Walker, Cane, Wheelchair, Crutches, etc.)? No PATIENT GENDER DATA: Female. status: : No status: NO. PATIENT RELEVANT IMPLANT DATA REVIEWED: Not Applicable RADIOLOGY DEPARTMENT: Mammography PERIPHERAL IV DATA: Not applicable SIGNED BY: RT Elly(Thi) June 28, 2022 12:39 PM documented in this encounter [facility] 06-04-2022 Miscellaneous Notes The following approved medication requests have been transmitted electronically. Requested Prescriptions Signed Prescriptions Disp Refills mirabegron (MYRBETRIQ) 25 mg Tb24 30 tablet 2 Sig: Take 1 tablet by mouth once daily. Authorizing Provider: Darius BLACK magnesium oxide 200 mg magnesium chew 90 tablet 3 Sig: Take 1 tablet by mouth once daily. Authorizing Provider: Darius BLACK PA-C Pt is asking to attempt to try to get once daily covered by insurance. Please send to pharmacy Magnesium doesn't need to be taken twice a day. 200mg once daily would probably suffice to maintain mag level. Thanks, Halley Black PA-C Patient returned call and went over notes below from Halley STEVENSON. Patient said she is leaking all the time, worse when she bends over or coughing, sneezing. She wears a pad during the day, and depends and pad at night. Patient said she is not having any fever, sweats, etc. Patient said she thinks this has been going on since December when she started taking the Oxybutynin rx. Aware Mybetriq rx was sent to pharmacy, asked to check if insurance will pay for the rx. Patient also said her insurance will not pay for the Magnesium 200 mg twice daily. Asking if any suggestions? Told her to check keith and see what cost would be for it OTC. Left message for patient to return call. Yaz Galindo Ma Nabil Combs, I am not sure when we last talked about incontinence. Is there a sensation of pressure/needing to urinate before voiding? Small squirts or large gushes? Do you wet the bed at night and/or during the day? Does it occur with stress such as jumping, lifting, laughing, or coughing? Any signs of infection like burning, frequency, fever, chills, nausea, vomiting? How long have you been experiencing incontinence? Thanks, Halley Black PA-C I have not evaluated her for this problem. Have her answer mychart questions before starting medication. Consult placed to uro-gas maker. Closest [facility] is [facility]. Could see [facility] Cantu [facility] alternatively. Trial Myrbetriq which works well but may be $$$ Telephone on 05/31/22 CONSULT TO FEMALE UROLOGY/URO GYNECOLOGY The following approved medication requests have been transmitted electronically. Requested Prescriptions Signed Prescriptions Disp Refills mirabegron (MYRBETRIQ) 25 mg Tb24 30 tablet 2 Sig: Take 1 tablet by mouth once daily. Authorizing Provider: Darius BLACK PA-C Oxybutynin increased to 10mg at [facility] on 01/02/22. Consider referral to urology? Please advise. Robbie Floyd LPN Patient states that she is taking Oxbutynin and this medication is NOT helping what so ever. Wants to know what the next step would be since it has not helped at all. Contact patient at [phone]. Karen Sandoval Pss documented in this encounter [facility] 05-28-2022 Instructions Mandeep Álvarez - 05/28/2022 2:41 PM EST Diabetes Foot Care Instructions When you have diabetes, proper foot care is very important. Poor foot care may lead to amputation of a foot or leg. As a person with diabetes, you are more vulnerable to foot problems, because diabetes can damage your nerves and reduce blood flow to your feet. Here are some diabetes foot care tips to follow: Wash and Dry Your Feet Daily Use mild soaps Use warm water Pat your skin dry; do not rub. Thoroughly dry your feet. After washing, use lotion on your feet to prevent cracking. Do not put lotion between your toes. Examine Your Feet Each Day Check the tops and bottoms of your feet. Have someone else look at your feet if you cannot see them. Check for dry, cracked skin. Look for blisters, cuts, scratches, or other sores. Check for redness, increased warmth, or tenderness when touching any area of your feet. Check for ingrown toenails, corns, and calluses. If you get a blister or sore from your shoes, do not pop it. Apply a bandage and wear a different pair of shoes. Take Care of Your Toenails Cut toenails after bathing, when they are soft. Cut toenails straight across and smooth with a nail file. Avoid cutting into the corners of toes. Do not cut cuticles. If you have neuropathy (or decreased sensation in your feet) a cup machine operator should always cut your toenails. Be Careful When Exercising Walk and exercise in comfortable shoes. Do not exercise when you have open sores on your feet. Protect Your Feet With Shoes and Socks Never go barefoot. Always protect your feet by wearing shoes or hard-soled slippers or footwear. Avoid shoes with high heels and pointed toes. Avoid shoes that expose your toes or heels (such as open-toed shoes or sandals). These types of shoes increase your risk for injury and potential infections. Try on new footwear with the type of socks you usually wear. Do not wear new shoes for more than an hour at a time. Change your socks daily. Look and feel inside your shoes before putting them on to make sure there are no foreign objects or rough areas. Avoid tight socks. Wear natural-fiber socks (cotton, wool, or a cotton-wool blend). Wear special shoes if your health care provider recommends them. Wear shoes/boots that will protect your feet from various weather conditions (cold, moisture, etc.). Make sure your shoes fit properly. If you have neuropathy (nerve damage), you may not notice that your shoes are too tight. Perform the footwear test described below. Footwear Test Use this simple test to see if your shoes fit correctly: Stand on a piece of paper. (Make sure you are standing and not sitting, because your foot changes shape when you stand.) Trace the outline of your foot. Trace the outline of your shoe. Compare the tracings: Is the shoe too narrow? Is your foot crammed into the shoe? The shoe should be at least 1/2 inch longer than your longest toe and as wide as your foot. Proper Shoe Choices The following types of shoes are best for people with diabetes Closed toes and heels Leather uppers without a seam inside At least 1/2 inch extra space at the end of your longest toe Inside of shoe should be soft with no rough areas Outer sole should be made of stiff material Shoes should be at least as wide as your feet Tips for Foot Care in Diabetes Don't wait to treat a minor foot problem if you have diabetes. Follow your health care provider's guidelines and first aid guidelines. Report foot injuries and infections to your health care provider immediately. Check water temperature with your elbow, not your foot. Do not use a heating pad on your feet. Do not cross your legs. Do not self-treat your corns, calluses, or other foot problems. Go to your health care provider or cup machine operator to treat these conditions. documented in this encounter [facility] 05-28-2022 History of Present illness Narrative Last saw Halley Black SHIVANI 02/07/22 Subjective: Patient presents to clinic c/o painful toenails. They state that the nails are especially painful with shoe gear and pressure. Patient states that nails 1-5 b/l are painful. Patient admits to being diabetic. No other pedal complaints at this time. Patient states no change in medications or medical history since last visit. Objective: Patient presents to clinic ambulating in boots Vasc: DP and PT pulses are palpable bilateral. CFT is less than 5 seconds bilateral. Skin temperature is warm to cool proximal to distal bilateral. There is mild edema or varicosities noted. Neuro: Protective sensation is intact to the foot and toes when tested with the 5.07 SWM bilateral. Vibratory sensation is decreased at the hallux IPJ bilateral. The hallux is downgoing bilateral. Derm: Nails 1-5 b/l are painful, discolored-yellow, thick, crumbly, dystrophic and with subungal debris. Skin is of normal turgor, texture and hair growth is present bilateral. There are callus to left 1st and left 5th metatarsal. no ulcerations, scars, verruca or other lesions noted. Ortho: Muscle strength is 5/5 for all pedal groups tested. Ankle joint DF is decreased with the knee extended with no pain or crepitus noted. 1st MPJ ROM is decreased bilateral. Assessment: (B35.1) Onychomycosis (primary encounter diagnosis) (M79.675) Pain in toe of left foot (M79.674) Pain in toe of right foot (E11.42) Diabetic polyneuropathy associated with type 2 diabetes mellitus (HCC) (L85.9) Hyperkeratosis Plan: Patient was seen and evaluated. Nails 1-5 bilateral were debrided in length and thickness. Callus reduced with dremmel to left foot. Being that she is diabetic with neuropathy and presence of callus, the use of diabetic shoe with multidensity insert would be of great benefit. These were ordered for patient. Patient was instructed on the continued importance of diabetic foot care along with proper diet and keeping their blood sugar under control to prevent complications. Patient is to RTC in 3-4 months. Mandeep Álvarez DPM Patient presents with: Left Foot - Established Patient, Follow Up, Diabetic Foot Care Right Foot - Established Patient, Follow Up, Diabetic Foot Care Claudia Gutiérrez LPN documented in this encounter [facility] 05-02-2022 History of Present illness Narrative Images from the original note were not included. . Respiratory [place] Note Patient name: Lauryn Brumfield PCP: Darius Black PA-C CC: follow-up visit HPI: Lauryn Brumfield 72 year old obese female with PMH significant for HTN, GERD, CMP, KAYCEE on CPAP recently seen for evaluation of SOB. PFT only pertinent for small airways obstruction, Lilia was normal. Patient felt better with the albuterol used during her testing. She states she is doing well. No significant change in her SCHAFER. No cough, chest pain, wheezing. Uses her albuterol almost every morning. Sometimes forgets to use it. No recent URI, hospitalizations. Many questions today but have to do with her diabetes medications. Directed her to talk to Halley Black. PAST MEDICAL HISTORY Diagnosis Date Cardiomyopathy in other diseases classified elsewhere echo 2009-normal EF Complication of anesthesia Diabetes mellitus (HCC) Diverticulosis of colon (without mention of hemorrhage) Esophageal reflux Gastroesophageal reflux Fibromyalgia Internal hemorrhoids without mention of complication Mental disorder Sleep apnea On CPAP Unspecified essential hypertension Essential hypertension ALLERGIES Allergen Reactions Metal [Other] Rash, Itching Nickel Rash, Itching Amlodipine Swelling Lisinopril Cough Nitrofurantoin Rash Possible skin reaction with nitrofurantion. albuterol HFA (PROVENTIL HFA, VENTOLIN HFA) 90 mcg/actuation inhaler^Inhale 2 Puffs as instructed every 4 hours as needed for wheezing/shortness of breath.^Disp: 1 Each^Rfl: 5 magnesium oxide 200 mg magnesium chew^Take 1 tablet by mouth twice daily.^Disp: 60 tablet^Rfl: 5 gabapentin (NEURONTIN) 300 mg capsule^Take 1 capsule by mouth three times daily for 180 days.^Disp: 270 capsule^Rfl: 1 oxybutynin ER (DITROPAN XL) 10 mg 24 hr tablet^Take 1 tablet by mouth once daily.^Disp: 30 tablet^Rfl: 5 traZODone (DESYREL) 50 mg tablet^Take 1 tablet by mouth daily at bedtime.^Disp: 90 tablet^Rfl: 2 hydroCHLOROthiazide (HYDRODIURIL, ESIDRIX) 25 mg tablet^Take 1 tablet by mouth once daily.^Disp: 90 tablet^Rfl: 2 carvedilol (COREG) 12.5 mg tablet^Take 1 tablet by mouth twice daily.^Disp: 180 tablet^Rfl: [address] (PROTONIX) 40 mg tablet^Take 1 tablet by mouth twice daily. Take on empty stomach, 1/2 hr before meal.^Disp: 180 tablet^Rfl: 1 colestipol (COLESTID) 1 gram tablet^Take 1 tablet by mouth once daily.^Disp: 90 tablet^Rfl: 1 spironolactone (ALDACTONE) 50 mg tablet^Take 1 tablet by mouth once daily.^Disp: 90 tablet^Rfl: 1 lancets (ONE TOUCH DELICA) 33 gauge^USE INSTRUCTED. Test 1-2 times daily. DX: E11.9 Insulin:No^Disp: 100 Each^Rfl: 3 triamcinolone (KENALOG IN ORABASE) 0.1 % paste^0.25 Inches by DENTAL route twice daily.^Disp: 2 g^Rfl: 1 (Patient taking differently: 0.25 Inches by DENTAL route as needed.) losartan (COZAAR) 100 mg tablet^Take 1 tablet by mouth once daily.^Disp: 90 tablet^Rfl: 3 metFORMIN (GLUCOPHAGE) 500 mg tablet^Take 2 tablets by mouth twice daily with meals.^Disp: 360 tablet^Rfl: 3 atorvastatin (LIPITOR) 20 mg tablet^Take 1 tablet by mouth daily at bedtime. For cholesterol.^Disp: 90 tablet^Rfl: 1 FLUoxetine (PROZAC) 20 mg capsule^TAKE 4 CAPSULES BY MOUTH ONCE DAILY.^Disp: 360 capsule^Rfl: 1 blood sugar diagnostic (BLOOD GLUCOSE TEST) test strip^Test blood sugar(s) 2-3 times daily. Dx: Type 2 DM - Controlled E11.9 Insulin: No^Disp: 90 Strip^Rfl: 5 blood sugar diagnostic (ONETOUCH VERIO) test strip^TEST BLOOD SUGAR(S) 2 TO 3 TIMES DAILY. DX: TYPE 2 DM - CONTROLLED E11.9 INSULIN: NO^Disp: 100 Strip^Rfl: 11 ONETOUCH DELICA LANCETS 30 gauge misc^TEST BLOOD SUGAR 2-3 TIMES DAILY^Disp: 100 Each^Rfl: 3 Social History Tobacco Use Smoking status: Former Types: Cigarettes Smokeless tobacco: Never Tobacco comments: was a casual smoker. Hasn't smoked since she was 48yrs. Vaping Use Vaping Use: Never used Substance Use Topics Alcohol use: No Drug use: No PMH, Social history, family history and surgical history reviewed and updated EMR REVIEW OF SYSTEMS: CONSTITUTIONAL: No fevers, chills, nightsweats, unintended weight loss HEENT: Denies nasal congestion/sinus symptoms, allergy problems. CARDIOVASCULAR: No chest pain, dyspnea, palpitations, orthopnea, PND, edema. PULM: See HPI GI: No dysphagia/odynophagia, problematic reflux. Diarrhea : Urinary incontinence PSY: No concerns regarding depression, anxiety INTEGUMENTARY: No new skin changes or rashes PHYSICAL EXAMINATION: BP 142/80 Pulse 86 Resp 15 Wt 186 lb (84.4kg) SpO2 94% General Appearance: Age appropriate, NAD Skin: Skin color, texture, turgor normal, no suspicious rashes or lesions. Head: Normocephalic, no masses, lesions, tenderness or abnormalities. Eyes: Sclera, conjunctiva normal Neck: No JVD, no masses, no adenopathy Lungs: Not labored, normal to percussion, no wheezes Heart: RRR, no murmur Extremities: No significant edema, no clubbing Assessment/Plan: Small airways disease -Continue albuterol as needed Obesity -Class 1, BMI 31 -Weight loss advised Demetrice Dunlap MD [facility] [place] documented in this encounter [facility] 02-20-2022 History of Present illness Narrative Lauryn Brumfield is identified through a medication adherence outreach initiative based on pharmacy claims data from [employer] (insurer). Patient is reviewed 02/20/22 due to medication adherence concerns with Atorvastatin 20mg medication(s) for Cholesterol. Per data report last fill date and quantity: Last filled 11/15/21 for 90 days; due 02/13/22 Per reconcile dispense: Filled 02/11/22 for 90 day supply Outcome of review: (choose one of the options selected in excel spreadsheet) - Filled On Time Lore Condon ([place]) documented in this encounter [facility] 02-08-2022 History of Present illness Narrative Last saw Halley Black: 02/08/22 Subjective: Patient presents to clinic c/o painful toenails. They state that the nails are especially painful with shoe gear and pressure. Patient states that nails 1-5 b/l are painful. Patient admits to being diabetic. No other pedal complaints at this time. Patient states no change in medications or medical history since last visit. Objective: Patient presents to clinic ambulating in [facility] Vasc: DP and PT pulses are palpable bilateral. CFT is less than 5 seconds bilateral. Skin temperature is warm to cool proximal to distal bilateral. There is no edema or varicosities noted. Neuro: Protective sensation is intact to the foot and toes when tested with the 5.07 SWM bilateral. Vibratory sensation is decreased at the hallux IPJ bilateral. The hallux is downgoing bilateral. Derm: Nails 1-5 b/l are painful, discolored-yellow, thick, crumbly, dystrophic and with subungal debris. Skin is of normal turgor, texture and hair growth is present bilateral. There are small callus to left 5th metatarsal. no ulcerations, scars, verruca or other lesions noted. Ortho: Muscle strength is 5/5 for all pedal groups tested. Ankle joint DF is decreased with the knee extended with no pain or crepitus noted. 1st MPJ ROM is decreased bilateral. Assessment: (B35.1) Onychomycosis (primary encounter diagnosis) (M79.675) Pain in toe of left foot (M79.674) Pain in toe of right estefania (E11.42) Diabetic polyneuropathy associated with type 2 diabetes mellitus (HCC) (L85.9) Hyperkeratosis Plan: Patient was seen and evaluated. Nails 1-5 bilateral were debrided in length and thickness. Callus reduced with dremmel to left foot. Discussed diabetic shoes. Patient has elected to continue with [facility] Patient was instructed on the continued importance of diabetic foot care along with proper diet and keeping their blood sugar under control to prevent complications. Patient is to RTC in 3-4 months. Mandeep Álvarez DPM Patient presents with: Left Foot - Established Patient, Follow Up, Diabetic Foot Care Right Foot - Established Patient, Follow Up, Diabetic Foot Care Claudia Gutiérrez LPN documented in this encounter [facility] 02-08-2022 Instructions Mandeep Álvarez - 02/08/2022 2:41 PM EDT Diabetes Foot Care Instructions When you have diabetes, proper foot care is very important. Poor foot care may lead to amputation of a foot or leg. As a person with diabetes, you are more vulnerable to foot problems, because diabetes can damage your nerves and reduce blood flow to your feet. Here are some diabetes foot care tips to follow: Wash and Dry Your Feet Daily Use mild soaps Use warm water Pat your skin dry; do not rub. Thoroughly dry your feet. After washing, use lotion on your feet to prevent cracking. Do not put lotion between your toes. Examine Your Feet Each Day Check the tops and bottoms of your feet. Have someone else look at your feet if you cannot see them. Check for dry, cracked skin. Look for blisters, cuts, scratches, or other sores. Check for redness, increased warmth, or tenderness when touching any area of your feet. Check for ingrown toenails, corns, and calluses. If you get a blister or sore from your shoes, do not pop it. Apply a bandage and wear a different pair of shoes. Take Care of Your Toenails Cut toenails after bathing, when they are soft. Cut toenails straight across and smooth with a nail file. Avoid cutting into the corners of toes. Do not cut cuticles. If you have neuropathy (or decreased sensation in your feet) a cup machine operator should always cut your toenails. Be Careful When Exercising Walk and exercise in comfortable shoes. Do not exercise when you have open sores on your feet. Protect Your Feet With Shoes and Socks Never go barefoot. Always protect your feet by wearing shoes or hard-soled slippers or footwear. Avoid shoes with high heels and pointed toes. Avoid shoes that expose your toes or heels (such as open-toed shoes or sandals). These types of shoes increase your risk for injury and potential infections. Try on new footwear with the type of socks you usually wear. Do not wear new shoes for more than an hour at a time. Change your socks daily. Look and feel inside your shoes before putting them on to make sure there are no foreign objects or rough areas. Avoid tight socks. Wear natural-fiber socks (cotton, wool, or a cotton-wool blend). Wear special shoes if your health care provider recommends them. Wear shoes/boots that will protect your feet from various weather conditions (cold, moisture, etc.). Make sure your shoes fit properly. If you have neuropathy (nerve damage), you may not notice that your shoes are too tight. Perform the footwear test described below. Footwear Test Use this simple test to see if your shoes fit correctly: Stand on a piece of paper. (Make sure you are standing and not sitting, because your foot changes shape when you stand.) Trace the outline of your foot. Trace the outline of your shoe. Compare the tracings: Is the shoe too narrow? Is your foot crammed into the shoe? The shoe should be at least 1/2 inch longer than your longest toe and as wide as your foot. Proper Shoe Choices The following types of shoes are best for people with diabetes Closed toes and heels Leather uppers without a seam inside At least 1/2 inch extra space at the end of your longest toe Inside of shoe should be soft with no rough areas Outer sole should be made of stiff material Shoes should be at least as wide as your feet Tips for Foot Care in Diabetes Don't wait to treat a minor foot problem if you have diabetes. Follow your health care provider's guidelines and first aid guidelines. Report foot injuries and infections to your health care provider immediately. Check water temperature with your elbow, not your foot. Do not use a heating pad on your feet. Do not cross your legs. Do not self-treat your corns, calluses, or other foot problems. Go to your health care provider or cup machine operator to treat these conditions. documented in this encounter [facility] 02-07-2022 Instructions M Pavna Black PA-C - 02/07/2022 2:09 PM EDT F/U lab in 6 months prior to next visit Check with your pharmacy for Moderna third vaccine. documented in this encounter [facility] 02-07-2022 History of Present illness Narrative 72 year old female with c/o annual exam and chronic problem review. Lauryn Brumfield is a 72 year old female here for a Medicare Subsequent Annual Wellness Visit Health Risk Assessment In general, health is: Excellent Concerns with tiredness, difficulties with sexual function, balance, teeth/dentures: no except needs dentures. Has hx acoustic neuroma which affects balance. [place] anxious, stressed, angry, irritable, lonely, isolated, or had thoughts of hurting themself: none except worries about granddaughter Has little interest or pleasure in doing things: Not at all Bothered by feeling down, depressed, or hopeless: Not at all Needs help with grocery shopping, cooking, housework, bathing, grooming, dressing, eating, sitting or standing, walking, using the toilet, handling finances, taking medications, using the telephone, or driving: No Following safety precautions in the home environment and vehicle: removed throw rugs from floors, installed grab bars in the bathroom, handrails in stairwells, having adequate lighting, wearing seatbelt at all times?: Yes Smokes cigarettes, vapes, or chew tobacco: No Eats healthy foods including fruits, vegetables, whole grains, and fiber-rich foods: Nearly every day Number of days per week engages in exercise: 0 days Average alcohol consumption: Never Current Providers Patient Care Team: Darius Black PA-C as PCP - General (Family Medicine) Specialists: I have reviewed specialist-related care of the patient in the medical record. Medical/Family history review Reviewed and updated problem list, medical history, surgical history, family history, social history, medication list, and allergies. Opioid use review Patient is not currently using opioids. Depression screening Depression Screening PHQ-2 Score PHQ-9 Score SANTY-2 Total Score SANTY-7 Total Score 08/20/2021 0 6 1 4 Depression screening tool completed and reviewed. Based on score and interview, patient is not at risk for depression. Screening tool discussed with patient, and I recommended no further intervention at this time. Cognitive screening Mini Cog Score: Score: 5, second try on 3 objects Cognitive screening reviewed and no further action needed (score 3-5) Functional Observation Was the patient's timed Up & Go test unsteady or longer than 30 seconds? No Advance Care Planning End of Life planning discussed, including patient's advanced directive wishes: Yes Measurements BP 132/70 Pulse 79 Resp 16 Wt 86.2 kg (190 lb) SpO2 96% BMI 31.62 kg/m Visual acuity: follows with optometry/ophthalmology Hearing Evaluation: within normal limits on left, hearing impairment on right. Assessment/Plan - Counseled on healthy diet and regular exercise - Fall avoidance - Vaccines recommended COVID-19, Influenza, and Shingrix at pharmacy - Mammogram recommended and ordered - Lipid panel HISTORIES FAMILY HISTORY Problem Relation Age of Onset Cancer Mother bladder ca. Stroke Mother Alzheimer's Disease Father Osteoporosis Sister Cancer Brother kidney ca./renal cell Coronary Artery Disease Brother [place], has a bad disc is the same as above Cancer Maternal Grandmother liver ca. Asthma Daughter Thyroid Daughter Stroke Maternal Aunt PAST MEDICAL HISTORY Diagnosis Date Cardiomyopathy in other diseases classified elsewhere echo 2008-normal EF Complication of anesthesia Diabetes mellitus (HCC) Diverticulosis of colon (without mention of hemorrhage) Esophageal reflux Gastroesophageal reflux Fibromyalgia Internal hemorrhoids without mention of complication Mental disorder Sleep apnea On CPAP Unspecified essential hypertension Essential hypertension PAST SURGICAL HISTORY Procedure Laterality Date COLONOSCOPY FLX DX W/COLLJ SPEC WHEN PFRMD 1999 Colonoscopy-due 2009 COLONOSCOPY FLX DX W/COLLJ SPEC WHEN PFRMD 01/29/10 CRANIEC TREPHINE BONE FLP BRAIN TUMOR SUPRTENTOR 1998 acoustic neuroma brain surgery DENTAL SURGERY PROCEDURE 04/2010 laser top right teeth EGD 04/01/2018 Dr Miller ESOPHAGOGASTRODUODENOSCOPY TRANSORAL DIAGNOSTIC 05/2003 EGD PAST SURGICAL HISTORY OF right foot surgery, neuroma excised SIGMOIDOSCOPY FLX DX W/COLLJ SPEC BR/WA IF PFRMD 09/01/14 Sigmoidoscopy, flexible Social History Tobacco Use Smoking status: Former Smokeless tobacco: Never Tobacco comments: was a casual smoker. Hasn't smoked since she was 48yrs. Vaping Use Vaping Use: Never used Substance Use Topics Alcohol use: No Drug use: No ACTIVE PROBLEM LIST Essential Hypertension, Benign Insomnia Esophageal Reflux Hyperlipidemia Sleep Apnea Type 2 Diabetes Mellitus Without Complication ([facility]) Spinal Stenosis of Lumbar Region Primary Osteoarthritis of Left Knee Adjustment Disorder With Mixed Anxiety and Depressed Mood Obesity (Bmi 30.0-34.9) Inflammatory Polyarthritis ([facility]) Family History of Ischemic Heart Disease Aortic Valve Sclerosis Asthma With Chronic Obstructive Pulmonary Disease (Copd) ([facility]) Lung Nodule Acquired Deafness of Right Ear Acute Bilateral Low Back Pain With Right-Sided Sciatica Chronic Diastolic Chf (Congestive Heart Failure) ([facility]) Hypertensive Heart Disease With Chronic Diastolic Congestive Heart Failure ([facility]) Current Outpatient Medications Medication Sig Dispense Refill albuterol HFA (PROVENTIL HFA, VENTOLIN HFA) 90 mcg/actuation inhaler Inhale 2 Puffs as instructed every 4 hours as needed for wheezing/shortness of breath. 1 Each 5 gabapentin (NEURONTIN) 300 mg capsule Take 1 capsule by mouth three times daily for 180 days. 270 capsule 1 oxybutynin ER (DITROPAN XL) 10 mg 24 hr tablet Take 1 tablet by mouth once daily. 30 tablet 5 traZODone (DESYREL) 50 mg tablet Take 1 tablet by mouth daily at bedtime. 90 tablet 2 hydroCHLOROthiazide (HYDRODIURIL, ESIDRIX) 25 mg tablet Take 1 tablet by mouth once daily. 90 tablet 2 carvedilol (COREG) 12.5 mg tablet Take 1 tablet by mouth twice daily. [address] (PROTONIX) 40 mg tablet Take 1 tablet by mouth twice daily. Take on empty stomach, 1/2 hr before meal. 180 tablet 1 colestipol (COLESTID) 1 gram tablet Take 1 tablet by mouth once daily. 90 tablet 1 spironolactone (ALDACTONE) 50 mg tablet Take 1 tablet by mouth once daily. 90 tablet 1 magnesium oxide 200 mg magnesium chew Take 1 tablet by mouth twice daily. 60 tablet 5 lancets (ONE TOUCH DELICA) 33 gauge USE INSTRUCTED. Test 1-2 times daily. DX: E11.9 Insulin:No 100 Each 3 triamcinolone (KENALOG IN ORABASE) 0.1 % paste 0.25 Inches by DENTAL route twice daily. (Patient taking differently: 0.25 Inches by DENTAL route as needed.) 2 g 1 losartan (COZAAR) 100 mg tablet Take 1 tablet by mouth once daily. 90 tablet 3 metFORMIN (GLUCOPHAGE) 500 mg tablet Take 2 tablets by mouth twice daily with meals. 360 tablet 3 atorvastatin (LIPITOR) 20 mg tablet Take 1 tablet by mouth daily at bedtime. For cholesterol. 90 tablet 1 FLUoxetine (PROZAC) 20 mg capsule TAKE 4 CAPSULES BY MOUTH ONCE DAILY. 360 capsule 1 blood sugar diagnostic (BLOOD GLUCOSE TEST) test strip Test blood sugar(s) 2-3 times daily. Dx: Type 2 DM - Controlled E11.9 Insulin: No 90 Strip 5 blood sugar diagnostic (ONETOUCH VERIO) test strip TEST BLOOD SUGAR(S) 2 TO 3 TIMES DAILY. DX: TYPE 2 DM - CONTROLLED E11.9 INSULIN: NO 100 Strip 11 ONETOUCH DELICA LANCETS 30 gauge misc TEST BLOOD SUGAR 2-3 TIMES DAILY 100 Each 3 Current Facility-Administered Medications Medication Dose Route Frequency Provider Last Rate Last Admin perflutren lipid microspheres 1.3 mL in NaCl (PF) 0.9% 10 mL injection (DEFINITY) INTRAVENOUS DIRECTED PRN Peyton Holman APRN.BOOK SORTER sodium chloride 0.9 % (flush) 10 mL (BD POSIFLUSH) 10 mL INTRAVENOUS DIRECTED PRN Peyton Holman APRN.BOOK SORTER perflutren lipid microspheres 1.3 mL in NaCl (PF) 0.9% 10 mL injection (DEFINITY) INTRAVENOUS DIRECTED PRN Rhett Reece MD sodium chloride 0.9 % (flush) 10 mL (BD POSIFLUSH) 10 mL INTRAVENOUS DIRECTED PRN Rhett Reece MD BP CONTROLLED (<130/80) Never done ALPHA-1 ANTITRYPSIN DEFICIENCY SCREENING Never done SHINGRIX VACCINE(2 of 3) due on 12/18/2010 DTAP,TDAP,TD(2 - Td or Tdap) due on 01/01/2017 COVID-19 VACCINE(3 - Booster for Moderna series) due on 11/29/2020 ADVANCE DIRECTIVE DISCUSSION Never done DEPRESSION ASSESSMENT Never done INFLUENZA(1) due on 01/03/2022 MAMMOGRAM due on 05/10/2022 Additional Concerns The following concerns were also discussed with the patient: Chronic diastolic chf (congestive heart failure) (hcc) Aortic valve sclerosis Pericardial effusion Hypertensive heart disease with chronic diastolic congestive heart failure (hcc) Essential hypertension, benign Hyperlipidemia, unspecified hyperlipidemia type Cardiovascular interval hx: 01/14/2022 NM cardiac perfusion stress/pharmacologic/Dr. David Emmanuel photoengraving helper: No scintigraphic evidence for inducible ischemia, no evidence of scarred myocardium. LV size and LV SF WNL, RV size and RV SF WNL, gated LVEF 72% 01/10/2022 echocardiogram: LV size and LV SF WNL, wall motion all scored within normal limits, RV size and RV SF WNL. RVSP 34 mmHg consistent with normal, RAP 3 mmHg although IVC not seen. No significant valvular abnormalities. MVR 0-1+, TVR 0-1+, AVR 01+ with peak gradient 7 mmHg. Aorta normal in size. 01/02/2022 EKG: Normal sinus rhythm, nonspecific ST abnormality. HCTZ 25mg daily Carvedilol 12.5mg daily Spironalactone 50mg daily Colestid 1 gram daily Use of NTG: Chest pain, arm, jaw pain, neck, or upper back pain suggestive of angina: No. SOB: if walks far or hard Dyspnea with exertion: as above orthopnea: No racing or irregular heartbeats: No palpitations: No syncopal sx: No Unexplainable fatigue No Leg swelling: No Nausea: No diaphoresis: No Heartburn: No Claudication: No Smoking: No Following Low cholesterol, high fiber diet? Yes If on statin: muscle aches? No If on statin: GI sx or diarrhea? Chronic diarrhea: taking colestipol daily which helps Additional history Component Latest Ref Rng & Units 08/14/2020 09/03/2021 Cholesterol, Total <200 mg/dL 125 137 Triglyceride <150 mg/dL 173 (H) 175 (H) HDL Cholesterol >39 mg/dL 41 47 LDL Cholesterol <100 mg/dL 49 55 Non HDL Cholesterol <130 mg/dL 84 90 Fasting Time hrs 11 12 VLDL Cholesterol <30 mg/dL 35 (H) 35 (H) TC:HDL Ratio <5.10 3.05 2.91 LDL:HDL Ratio <2.54 1.20 1.17 Lung nodule Calcified: no follow up needed Asthma with chronic obstructive pulmonary disease (copd) (hcc) Small airway disease Blueberry Grower: Dr. Demetrice Dunlap. Interval history: 01/29/2022 nitric oxide inhaled: 19.0 WNL 01/29/2022 PFT: Spirometry is normal. Small airways obstruction. Current medications: Albuteral MDI 2 puffs q4h prn Worsening shortness of breath: No. Cough: No. Wheezing: No. Smoking: No. Compliant with medications: Yes. Using rescue inhaler: once. Type 2 diabetes mellitus without complication, without long-term current use of insulin (hcc) Current medications: Metformin 500mg 2 tabs twice a day Taking medication as directed consistently? Yes Medical Issues / Complications: hypertension, hyperlipidemia, and cardiovascular disease Checking blood sugars at home? Yes. After breakfast 153 Watching diet? Eats a lot, but healthy types of foods Physical Activity: Regular Hypoglycemic spells? No Any visual disturbance? No Chest pain? No New numbness, tingling or loss of sensation? No Any recent foot problems, sores or rashes? No Any recent or sudden weight loss? No Change in urination? No. If yes: Any recent illness? No Last eye exam: uo to date. Last foot exam: up to date. HBA1C: Hemoglobin A1C (%) Date Value 09/03/2021 6.9 08/14/2020 6.9 06/16/2019 6.7 ) CMP: Glucose 167 01/02/2022 BUN 15 01/02/2022 Creatinine 0.51 01/02/2022 Sodium 139 01/02/2022 Potassium 4.0 01/02/2022 Chloride 103 01/02/2022 CO2 21 01/02/2022 Protein, Total 6.4 11/21/2021 Albumin 4.2 11/21/2021 Calcium 9.7 01/02/2022 Alkaline Phosphatase 82 11/21/2021 Bilirubin, Total 0.5 11/21/2021 AST 27 11/21/2021 ALT 21 11/21/2021 Last 2 Encounter Wt Readings: Date: Wt: 01/29/2022 85.7 kg (189 lb) 01/29/2022 86.1 kg (189 lb 14.4 oz) Gastroesophageal reflux disease without esophagitis Current medication: Pantoprazole 40mg daily AC Magnesium 200mg daily. Current symptoms: none. Last Mg level if on PPI chronically: 11/06/2021 1.6. Heartburn is controlled: No. Dysphagia: No. Bloody or black stools: No. Bowel changes: no, constant diarrhea. Last EGD and/or colonoscopy: 04/01/[address] Miller: Normal Z-line and esophagus, nonbleeding erosive gastropathy biopsied, normal examined duodenum no specimens. 09/01/[address] Aristides Cummings: Intact: Normal, biopsied. Path: normal colonic mucosa Adjustment disorder with mixed anxiety and depressed mood Current medications: Trazedone 50mg daily See screening above: doing well. Sleep apnea, unspecified type Compliant with CPAP Obesity (bmi 30.0-34.9) Primary osteoarthritis of left knee Spinal stenosis of lumbar region, unspecified whether neurogenic claudication present Inflammatory polyarthritis (hcc) Current medications: Gabapentin 300mg three times daily Acquired deafness of right ear Secondary to acoustic neuroma, OAB Current medications: Oxybutinin ER 1 tab daily Improved control on medication, no issue with incontinence. PHYSICAL EXAM BP 132/70 Pulse 79 Resp 16 Wt 86.2 kg (190 lb) SpO2 96% BMI 31.62 kg/m Pleasant overweight adult woman in no acute distress. Alert and oriented all spheres. Normal affect and cognition. Speech normal. No deficits to learning or comprehension. Skin warm, dry, pink to lips and nailbeds. Normal turgor. No significant lesions other than minor keratoses on examined skin sparing under close areas. Respirations regular and unlabored. HEENT: NCAT. No scleral icterus or conjunctival injection. TM's clear. Nose and oropharynx free from injection or lesion. Oral membranes moist and pink. No cervical lymph nodes. Thyroid non-tender, no masses, or enlargement. Carotids pulses 2+/4+ without bruits. No JVD with HOB at 30 degrees. Chest is normal shape. Lungs are clear to all monae with good air exchange through out. HRRR without murmur or gallop. No lifts, heaves, or rubs. Abdomen: active bowel sounds throughout, soft, nontender, no masses or organomegaly. No CVAT. Extrem: no clubbing or cyanosis. Edema: none. Extremities are warm and pink with prompt capillary refill. Moderate deformities in proximal and distal joints of fingers, knees with no swelling and good range of motion in general. Gait and balance normal. Sensation grossly intact. Negative findings: speech normal, mental status intact, cranial nerves 2-12 intact, muscle tone normal, DTRs 2/4+ and symmetric ASSESSMENT/PLAN: 1. Wellness examination - ICD9: V70.0, ICD10: Z00.00 (primary diagnosis) - Counseled on healthy diet and regular exercise - Calcium intake with supplements or by diet of 1000 mg/day for under 50, 7459-8317 mg/day for 50+ - Discussed need and benefit for weight loss. BMI 31.62 kg/(m^2) - Mammogram ordered - exam recommended once yearly - Depression screening tool completed and reviewed with patient. Based on score and interview, patient is not at risk for depression and recommended no further intervention at this time. - Follow up for annual exam in one year 2. Chronic diastolic CHF (congestive heart failure) (HCC) - ICD9: 428.32, 428.0, ICD10: I50.32 controlled on medications, follows with cardiology 3. Aortic valve sclerosis - ICD9: 424.1, ICD10: I35.8 Not demonstrated on most recent echo 4. Pericardial effusion - ICD9: 423.9, ICD10: I31.39 Resolved on most recent echo 5. Hypertensive heart disease with chronic diastolic congestive heart failure (HCC) - ICD9: 402.91, 428.32, ICD10: I11.0, I50.32 - good control - Continue current medication(s) - Recommended regular aerobic exercise. - Recommend home blood pressure monitoring, to bring results in on next visit - Goal of BP <130/80 - MAGNESIUM BLD - COMP METABOLIC PANEL - CBC + DIFF 6. Essential hypertension, benign - ICD9: 401.1, ICD10: I10 - good control - Continue current medication(s) - Recommended regular aerobic exercise. - Recommend home blood pressure monitoring, to bring results in on next visit - Goal of BP <130/80 7. Hyperlipidemia, unspecified hyperlipidemia type - ICD9: 272.4, ICD10: E78.5 - good control - Continue current medication. - LIPID PANEL BASIC - COMP METABOLIC PANEL 8. Lung nodule - ICD9: 793.11, ICD10: R91.1 Recheck recommended in 1 year from 11/23/2021 9. Asthma with chronic obstructive pulmonary disease (COPD) ([facility]) - ICD9: 493.20, ICD10: J44.9 Mild intermittent Asthma stable - Continue current meds - Avoidance of triggers recommended 10. Type 2 diabetes mellitus without complication, without long-term current use of insulin ([facility]) - ICD9: 250.00, ICD10: E11.9 Controlled. - Continue current medications - HGB A1C - COMP METABOLIC PANEL - CBC + DIFF 11. Gastroesophageal reflux disease without esophagitis - ICD9: 530.81, ICD10: K21.9 - Discussed lifestyle modifications including losing weight, limiting caffeine, no meals three hours before sleep, and head of bed elevation 12. Adjustment disorder with mixed anxiety and depressed mood - ICD9: 309.28, ICD10: F43.23 Recheck lab - COMP METABOLIC PANEL - CBC + DIFF 13. Sleep apnea, unspecified type - ICD9: 780.57, ICD10: G47.30 Compliant with CPAP 14. Primary osteoarthritis of left knee - ICD9: 715.16, ICD10: M17.12 Seems to be doing well with intermittent use of [id number] products. 15. Obesity (BMI 30.0-34.9) - ICD9: 278.00, ICD10: E66.9 Stable - Behavioral intervention 16. Spinal stenosis of lumbar region, unspecified whether neurogenic claudication present - ICD9: 724.02, ICD10: M48.061 Stable, seems to benefit from gabapentin 17. Inflammatory polyarthritis (HCC) - ICD9: 714.9, ICD10: M06.4 Effects primarily hands, with moderate deformities 18. Acquired deafness of right ear - ICD9: 389.9, ICD10: H91.91 Discussed hearing assessment as she does seem to have issues with voice tones which requires repetition and lipreading. 19. Need for influenza vaccination - ICD9: V04.81, ICD10: Z23 - INFLUENZA SEASONAL QUADRIVALENT HIGH DOSE AGE 65+ 20. Hypomagnesemia - ICD9: 275.2, ICD10: E83.42 Reassess with lab - MAGNESIUM BLD - MAGNESIUM 200 MG ( MAGNESIUM OXIDE) CHEWABLE TABLET 21. Encounter for screening mammogram for malignant neoplasm of breast - ICD9: V76.12, ICD10: Z12.31 - ANA SCREENING W OSKAR 22. OAB (overactive bladder) - ICD9: 596.51, ICD10: N32.81 Continue oxybutynin Follow-up in 6 months and as needed. Darius Black PA-C documented in this encounter [facility] 01-29-2022 History of Present illness Narrative Images from the original note were not included. . [facility] [place] Note Patient name: Lauryn Brumfield PCP: Darius Black PA-C Referring Physician: same Consultation requested by Pavan Black for an opinion regarding SOB. My final recommendations will be communicated back to the requesting physician by way of shared Medical record or letter to requesting physician via US mail. CC: SOB HPI: Lauryn Brumfield 72 year old obese female former remote social smoker with PMH significant for HTN, GERD, CMP, KAYCEE on CPAP being sent for evaluation of SOB. Patient is a somewhat poor historian, she cannot specifically specify how long she is still short of breath at least a year may be more. Shortness of breath is mainly dyspnea on exertion. No resting shortness of breath. Her dyspnea does not curtail her activities of daily living. She has no chronic cough. She did have a history of cough related to ALMAZ inhibitor. She has heard wheezing on occasion but only when she is ill with upper respiratory infection. She denies history of recurrent pneumonia or chronic bronchitis. Her pulmonary function test showed small airways obstruction without improvement postbronchodilator although she feels that the albuterol relieved her dyspnea. Family history of asthma and allergies. No personal history of asthma as a child. She has chronic sinus/nasal congestion without postnasal drip, she uses OTC antihistamine with some relief. She has never been formally allergy tested. DATA: RESPIRATORY THERAPY ORAL EXHALED NITRIC OXIDE SERVICE DATE: 01/29/2022 SERVICE TIME: 10:48 AM Oral Exhaled Nitric Oxide measurement: 19.0 (ppb) PFT: Review of pulmonary function test shows small air obstruction Labs: Component Ref Range & Units 2 mo ago NT Pro BNP <125 pg/mL 502 High Component Ref Range & Units 3 wk ago (01/02/22) WBC 3.70 - 11.00 k/uL 10.34 RBC 3.90 - 5.20 m/uL 4.51 Hemoglobin 11.5 - 15.5 g/dL 13.6 Hematocrit 36.0 - 46.0 % 38.9 MCV 80.0 - 100.0 fL 86.3 MCH 26.0 - 34.0 pg 30.2 MCHC 30.5 - 36.0 g/dL 35.0 RDW-CV 11.5 - 15.0 % 13.0 Platelet Count 150 - 400 k/uL 211 MPV 9.0 - 12.7 fL 12.5 Neut% % 59.1 Abs Neut 1.45 - 7.50 k/uL 6.11 Lymph% % 30.3 Abs Lymph 1.00 - 4.00 k/uL 3.13 [place]% % 7.4 Abs [place] <0.87 k/uL 0.77 Eosin% % 1.9 Abs Eosin <0.46 k/uL 0.20 Baso% % 0.9 Abs Baso <0.11 k/uL 0.09 Immature Gran % % 0.4 Abs Immature Gran <0.10 k/uL 0.04 NRBC /100 WBC 0.0 Absolute nRBC <0.01 k/uL <0.01 Diff Type Auto Imaging / Diagnostic Studies: Echocardiogram 01/2022: CONCLUSIONS: - Technically difficult exam due to body habitus. - Exam indication: Pericardial conditions - The left ventricle is normal in size. Left ventricular systolic function is normal. EF = 67 5% (2D biplane) Normal left ventricular diastolic function. - The right ventricle is normal in size. Right ventricular systolic function is normal. Esitmated RVSP 34 mmHg - There are no significant valvular abnormalities. - Exam was compared with the prior echocardiographic exam performed on 11/27/2021, no significant change. DATE OF EXAM: Nov 29 2021 8:38AM [facility] [id number] [facility]: CHEST CT WITHOUT CONTRAST CLINICAL HISTORY: Lung nodules Comparison: Chest x-ray 11/26/2021 RESULT: Limitations: None. Lines, tubes, and devices: None. Lung parenchyma and airways: Bilateral subcentimeter pulmonary nodules: *Adjacent 4 mm and 5 x 2 mm nodules right upper lobe (6:88) *4 mm nodule anterior left upper lobe (6:54) *3 mm nodule anterior left upper lobe (6:63) *4 mm nodule medial left upper lobe (6:63) Multiple calcified granulomas in the left lung. No acute airspace disease. Central airways are patent. Pleural space: No pleural effusion. No pleural thickening. Lower neck, lymph nodes, and mediastinum: The imaged thyroid gland is normal. No lymphadenopathy in the supraclavicular, axillary, mediastinal, or hilar regions. Heart, pericardium, and thoracic vessels: The thoracic aorta and main pulmonary artery are normal in caliber. The cardiac chambers are normal in size. No coronary artery atherosclerotic calcifications are noted, although the study is not optimized for coronary assessment. Small pericardial effusion. Bones and soft tissues: No destructive bone lesion. Degenerative disease of the thoracic spine. Chest wall is unremarkable. Upper abdomen: No abnormality in the imaged upper abdomen. Sensor Specialist (topogram) images: No additional findings. IMPRESSION: 1. Subcentimeter pulmonary nodules measuring up to 5 mm 2. Scattered calcified granulomas 3. Small pericardial effusion 4. No pleural effusion or consolidation I personally reviewed her images as well as with the patient which show evidence of old granulomatous disease, right upper lobe noncalcified nodule, simple cyst in her left lower lobe. Stable findings compared to CT of the chest obtained at [facility] PAST MEDICAL HISTORY Diagnosis Date Cardiomyopathy in other diseases classified elsewhere echo 2009-normal EF Complication of anesthesia Diabetes mellitus (HCC) Diverticulosis of colon (without mention of hemorrhage) Esophageal reflux Gastroesophageal reflux Fibromyalgia Internal hemorrhoids without mention of complication Mental disorder Sleep apnea On CPAP Unspecified essential hypertension Essential hypertension ALLERGIES Allergen Reactions Metal [Other] Rash, Itching Nickel Rash, Itching Amlodipine Swelling Lisinopril Cough Nitrofurantoin Rash Possible skin reaction with nitrofurantion. gabapentin (NEURONTIN) 300 mg capsule^Take 1 capsule by mouth three times daily for 180 days.^Disp: 270 capsule^Rfl: 1 oxybutynin ER (DITROPAN XL) 10 mg 24 hr tablet^Take 1 tablet by mouth once daily.^Disp: 30 tablet^Rfl: 5 traZODone (DESYREL) 50 mg tablet^Take 1 tablet by mouth daily at bedtime.^Disp: 90 tablet^Rfl: 2 hydroCHLOROthiazide (HYDRODIURIL, ESIDRIX) 25 mg tablet^Take 1 tablet by mouth once daily.^Disp: 90 tablet^Rfl: 2 carvedilol (COREG) 12.5 mg tablet^Take 1 tablet by mouth twice daily.^Disp: 180 tablet^Rfl: [address] (PROTONIX) 40 mg tablet^Take 1 tablet by mouth twice daily. Take on empty stomach, 1/2 hr before meal.^Disp: 180 tablet^Rfl: 1 colestipol (COLESTID) 1 gram tablet^Take 1 tablet by mouth once daily.^Disp: 90 tablet^Rfl: 1 spironolactone (ALDACTONE) 50 mg tablet^Take 1 tablet by mouth once daily.^Disp: 90 tablet^Rfl: 1 magnesium oxide 200 mg magnesium chew^Take 1 tablet by mouth twice daily.^Disp: 60 tablet^Rfl: 5 lancets (ONE TOUCH DELICA) 33 gauge^USE INSTRUCTED. Test 1-2 times daily. DX: E11.9 Insulin:No^Disp: 100 Each^Rfl: 3 triamcinolone (KENALOG IN ORABASE) 0.1 % paste^0.25 Inches by DENTAL route twice daily.^Disp: 2 g^Rfl: 1 (Patient taking differently: 0.25 Inches by DENTAL route as needed.) losartan (COZAAR) 100 mg tablet^Take 1 tablet by mouth once daily.^Disp: 90 tablet^Rfl: 3 metFORMIN (GLUCOPHAGE) 500 mg tablet^Take 2 tablets by mouth twice daily with meals.^Disp: 360 tablet^Rfl: 3 atorvastatin (LIPITOR) 20 mg tablet^Take 1 tablet by mouth daily at bedtime. For cholesterol.^Disp: 90 tablet^Rfl: 1 FLUoxetine (PROZAC) 20 mg capsule^TAKE 4 CAPSULES BY MOUTH ONCE DAILY.^Disp: 360 capsule^Rfl: 1 albuterol HFA (PROVENTIL HFA, VENTOLIN HFA) 90 mcg/actuation inhaler^Inhale 2 Puffs as instructed every 4 hours as needed for wheezing/shortness of breath.^Disp: 1 Each^Rfl: 5 blood sugar diagnostic (BLOOD GLUCOSE TEST) test strip^Test blood sugar(s) 2-3 times daily. Dx: Type 2 DM - Controlled E11.9 Insulin: No^Disp: 90 Strip^Rfl: 5 blood sugar diagnostic (ONETOUCH VERIO) test strip^TEST BLOOD SUGAR(S) 2 TO 3 TIMES DAILY. DX: TYPE 2 DM - CONTROLLED E11.9 INSULIN: NO^Disp: 100 Strip^Rfl: 11 ONETOUCH DELICA LANCETS 30 gauge misc^TEST BLOOD SUGAR 2-3 TIMES DAILY^Disp: 100 Each^Rfl: 3 Social History Tobacco Use Smoking status: Former Smokeless tobacco: Never Tobacco comments: was a casual smoker. Hasn't smoked since she was 48yrs. Vaping Use Vaping Use: Never used Substance Use Topics Alcohol use: No Drug use: No Retired from [employer] 40 years. Pets: None currently. Previously had dogs FAMILY HISTORY Problem Relation Age of Onset Cancer Mother bladder ca. Stroke Mother Alzheimer's Disease Father Osteoporosis Sister Cancer Brother kidney ca./renal cell Coronary Artery Disease Brother [place], has a bad disc is the same as above Cancer Maternal Grandmother liver ca. 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 Some nasal congestion/sinus symptoms. EYES: No diplopia or blurry vision. CARDIOVASCULAR: No chest pain, palpitations, orthopnea, PND. Occasional ankle edema PULM: See HPI GI: No dysphagia/odynophagia. Positive GERD controlled with medication : Urinary incontinence, no history of nephrolithiasis or recurrent UTIs NEURO: No new balance problems, peripheral weakness/paresthesias or numbness of concern. MUSC-SKEL: Bilateral knee pain PSY: No concerns regarding depression, anxiety INTEGUMENTARY: Skin sensitivity but no history of eczema PHYSICAL EXAMINATION: BP 130/80 Pulse 74 Resp 14 Wt 189 lb (85.7kg) SpO2 95% General Appearance: Obese female, NAD Skin: Skin color, texture, turgor normal, no suspicious rashes or lesions. Head: Normocephalic, no masses, lesions, tenderness or abnormalities. Eyes: Sclera, conjunctiva normal Oropharynx: No oral lesions or posterior pharyngeal cobblestoning Neck: No JVD or masses Back: Mild kyphosis Lungs: Not labored, normal percussion, no wheezing or crackles Heart: Regular rate and rhythm, no murmur appreciated Extremities: Right ankle edema, no clubbing Musculoskeletal: No major joint deformities or joint effusions Neurologic: Alert and oriented, no focal findings Lymph Nodes: No cervical lymphadenopathy and No supraclavicular lymphadenopathy. Assessment/Plan: 1. Small airways disease -PFT show small airways obstruction without response to bronchodilator but patient felt better -Albuterol as needed 2. Obesity, class I BMI 31 -Weigh loss advised as SOB may improve Demetrice Dunlap MD [facility] [place] documented in this encounter [facility] 01-29-2022 Nurse Note Intake information documented in the prior visit with ADRY [place] today. documented in this encounter [facility] 01-14-2022 History of Present illness Narrative RADIOLOGY SERVICE PROGRESS NOTE SERVICE DATE: 01/14/2022 SERVICE TIME: 07:35 AM PATIENT IDENTITY VERIFICATION COMPLETED USING TWO (2) STANDARD IDENTIFIERS: Name and Date of confirmed by patient verbally FALL SCREENING: Has the patient had 2 falls in the last year or 1 fall with injury or currently using an Ambulatory Assistive Device (Walker, Cane, Wheelchair, Crutches, etc.)? No PATIENT GENDER DATA: .female : No ALLERGIES: Reviewed and unchanged MEDICATIONS REVIEWED: Not applicable PATIENT RELEVANT IMPLANT DATA REVIEWED: Not Applicable CREATININE: Creatinine Date Value Ref Range Status 01/02/2022 0.51 (L) 0.58 - 0.96 mg/dL Final 11/26/2021 0.79 0.58 - 0.96 mg/dL Final 11/21/2021 0.56 (L) 0.58 - 0.96 mg/dL Final Estimated Glomerular Filtration Rate Date Value Ref Range Status 01/02/2022 99 >=60 mL/min/1.73m Final Comment: Estimated Glomerular Filtration Rate (eGFR) is calculated using the 2020 CKD-EPI creatinine equation. This equation utilizes serum creatinine, sex, and age as parameters. The creatinine assay has traceable calibration to isotope dilution-mass spectrometry. Refer to KDIGO guidelines for clinical interpretation. In patients with unstable renal function, e.g. those with acute kidney injury, the eGFR may not accurately reflect actual GFR. eGFR- Date Value Ref Range Status 08/14/2020 >60 Final P.O.C.T. RESULTS: N/A January 14, [address] PERFORMED: No IV SITE: Ambulatory: A peripheral IV was started in the Right antecubital site with a Angio cath: 22 gauge. POST EXAM PIV STATUS: Discontinued PROCEDURE TYPE: NM Stress: 12.3mCi [id number] was administered IV for Rest Imaging at 07:45 by juliette Gomez. 30.3 mCi [id number] was administered IV for Stress Imaging at 09:27 by juliette Gomez. ADMINISTRATION TIME: PATIENT DISCHARGED TO: Ambulatory patient, left [place] department area. A Diagnostic radioactive procedure has taken place, with no further precautions necessary other than routine body substance precautions. More information regarding radiation safety can be found using this link: [email or web address] SIGNATURE: JULIETTE Gomez PATIENT NAME: Lauryn Brumfield DATE: January 14, 2022 TIME: 10:42 AM PAGER/CONTACT #: documented in this encounter [facility] 2022 Miscellaneous Notes Pt. notified of results. Voices understanding. Shannan Ramos RN ----- Message from Peyton Holman APRN.BOOK [employer]ORTER sent at 2022 9:45 AM EDT ----- Please call patient and notify them of normal results. Echo remains stable. EF 67%, no significant valve abnormalities. Pericardial effusion remains small which is not concerning. Thank you! documented in this encounter [facility] 09-09-2022 Miscellaneous Notes Please call patient and notify them of normal results. Echo remains stable. EF 67%, no significant valve abnormalities. Pericardial effusion remains small which is not concerning. Thank you! documented in this encounter [facility] 01-02-2022 History of Present illness Narrative Patient presents with: Follow Up HPI: Patient presents today for office visit for follow up on OAB. Given trial of ditropan. She does not think it's working. Still having some edema in B/L ankles. Has been on vesicare and increased spironolactone. Saw Cardiology felt she was well compensated for diastolic chf. Recommended compression stockings. They will be repeating an echo in a month. She has noted she had increased shortness of breath for a few weeks. No cough or worsening wheeze. Weight is stable. Swelling is a little better. No chest pain. She notes increased shortness of breath with exertion. Gets a follow up echo in January and also sees pulmonary. Has had some tension type headache. Has had stress etc recently. See last ov from Mindy: She initially presented on 11/21/2021 with complaints of some dependent edema. She was on several diuretics. Lab work was obtained, including a BNP. Her BNP returned at 502. Her magnesium was low at 1.6. At that time, an echocardiogram and chest x-ray were ordered. She was given 3 doses of Lasix. She had repeat lab work completed. Her magnesium continues to be low, so her magnesium was increased to twice daily. Her chest x-ray showed several small lung nodules, so she does have CT scheduled to follow-up. Her echocardiogram showed normal heart function but a small amount of fluid. She has a follow-up with cardiology scheduled. She reports that she continues with BLE swelling. Refers that it is more dependent in nature. Requesting possibility of continued lasix. She also reports symptoms of OAB. No painful urination. Reports urgency as she is approaching the bathroom/toilet. Refers that she wears attends/depends d/t urgency and leakage CT chest. 1. Subcentimeter pulmonary nodules measuring up to 5 mm 2. Scattered calcified granulomas 3. Small pericardial effusion 4. No pleural effusion or consolidation MEDICATIONS: Current Outpatient Medications Medication Sig traZODone (DESYREL) 50 mg tablet Take 1 tablet by mouth daily at bedtime. hydroCHLOROthiazide (HYDRODIURIL, ESIDRIX) 25 mg tablet Take 1 tablet by mouth once daily. carvedilol (COREG) 12.5 mg tablet Take 1 tablet by mouth twice daily. pantoprazole DR (PROTONIX) 40 mg tablet Take 1 tablet by mouth twice daily. Take on empty stomach, 1/2 hr before meal. gabapentin (NEURONTIN) 300 mg capsule Take 1 capsule by mouth three times daily for 90 days. colestipol (COLESTID) 1 gram tablet Take 1 tablet by mouth once daily. oxybutynin (DITROPAN) 5 mg tablet Take 1 tablet by mouth twice daily. spironolactone (ALDACTONE) 50 mg tablet Take 1 tablet by mouth once daily. magnesium oxide 200 mg magnesium chew Take 1 tablet by mouth twice daily. furosemide (LASIX) 20 mg tablet Take 1 tablet by mouth once daily. lancets (ONE TOUCH DELICA) 33 gauge USE INSTRUCTED. Test 1-2 times daily. DX: E11.9 Insulin:No triamcinolone (KENALOG IN ORABASE) 0.1 % paste 0.25 Inches by DENTAL route twice daily. (Patient taking differently: 0.25 Inches by DENTAL route as needed.) losartan (COZAAR) 100 mg tablet Take 1 tablet by mouth once daily. metFORMIN (GLUCOPHAGE) 500 mg tablet Take 2 tablets by mouth twice daily with meals. atorvastatin (LIPITOR) 20 mg tablet Take 1 tablet by mouth daily at bedtime. For cholesterol. FLUoxetine (PROZAC) 20 mg capsule TAKE 4 CAPSULES BY MOUTH ONCE DAILY. blood sugar diagnostic (BLOOD GLUCOSE TEST) test strip Test blood sugar(s) 2-3 times daily. Dx: Type 2 DM - Controlled E11.9 Insulin: No blood sugar diagnostic (ONETOUCH VERIO) test strip TEST BLOOD SUGAR(S) 2 TO 3 TIMES DAILY. DX: TYPE 2 DM - CONTROLLED E11.9 INSULIN: NO ONETOUCH DELICA LANCETS 30 gauge misc TEST BLOOD SUGAR 2-3 TIMES DAILY urea (CARMOL) 40 % Apply to affected area twice daily. (Patient not taking: No sig reported) Current Facility-Administered Medications Medication Dose Route Frequency perflutren lipid microspheres 1.3 mL in NaCl (PF) 0.9% 10 mL injection (DEFINITY) INTRAVENOUS DIRECTED PRN sodium chloride 0.9 % (flush) 10 mL (BD POSIFLUSH) 10 mL INTRAVENOUS DIRECTED PRN perflutren lipid microspheres 1.3 mL in NaCl (PF) 0.9% 10 mL injection (DEFINITY) INTRAVENOUS DIRECTED PRN sodium chloride 0.9 % (flush) 10 mL (BD POSIFLUSH) 10 mL INTRAVENOUS DIRECTED PRN ALLERGIES: ALLERGIES Allergen Reactions Metal [Other] Rash, Itching Nickel Rash, Itching Amlodipine Swelling Lisinopril Cough Nitrofurantoin Rash Possible skin reaction with nitrofurantion. PAST MEDICAL HISTORY Diagnosis Date Cardiomyopathy in other diseases classified elsewhere echo 2008-normal EF Complication of anesthesia Diverticulosis of colon (without mention of hemorrhage) Esophageal reflux Gastroesophageal reflux Internal hemorrhoids without mention of complication Mental disorder Myalgia and myositis, unspecified Fibromyalgia (myalgia and myositis) PMH - PAST MEDICAL HISTORY OF pre diabetic Sleep apnea Unspecified essential hypertension Essential hypertension PAST SURGICAL HISTORY Procedure Laterality Date COLONOSCOPY FLX DX W/COLLJ SPEC WHEN PFRMD 1999 Colonoscopy-due 2009 COLONOSCOPY FLX DX W/COLLJ SPEC WHEN PFRMD 01/29/10 CRANIEC TREPHINE BONE FLP BRAIN TUMOR SUPRTENTOR 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 Stroke Mother Alzheimer's Disease Father Osteoporosis Sister Thyroid Daughter Cancer Brother kidney ca./renal cell Coronary Artery Disease Brother [place], has a bad disc is the same as above Cancer Maternal Grandmother liver ca. Stroke Maternal Aunt Social History Tobacco Use Smoking status: Former Smokeless tobacco: Never Tobacco comments: was a casual smoker. Hasn't smoked since she was 48yrs. Vaping Use Vaping Use: Never used Substance Use Topics Alcohol use: No Drug use: No Reviewed current medications, allergies, past medical history, surgical history, family history and social history today. REVIEW OF SYSTEMS All other reviewed and negative other than HPI. HEALTH MAINTENANCE: Reviewed health maintenance issues today and recommended the following in detail. SPIROMETRY Never done BP CONTROLLED (<130/80) Never done ALPHA-1 ANTITRYPSIN DEFICIENCY SCREENING Never done SHINGRIX VACCINE(2 of 3) due on 12/18/2010 DTAP,TDAP,TD(2 - Td or Tdap) due on 01/01/2017 COVID-19 VACCINE(3 - Booster for Moderna series) due on 03/06/2021 ADVANCE DIRECTIVE DISCUSSION Never done VITALS: BP 136/76 Pulse 67 Ht 162.6 cm (5' 4 ) Wt 88.2 kg (194 lb 6.4 oz) SpO2 97% BMI 33.37 kg/m Last 4 Encounter Wt Readings: Date: Wt: 12/10/2021 87.3 kg (192 lb 6.4 oz) 11/28/2021 87.8 kg (193 lb 9.6 oz) 11/21/2021 88.9 kg (196 lb) 08/20/2021 89 kg (196 lb 3.2 oz) PHYSICAL EXAMINATION: General appearance: Well appearing, alert, in no acute distress, well-hydrated, well nourished. Skin: Skin color, texture, turgor normal, no suspicious rashes or lesions Lungs: Lungs clear to auscultation. No wheezing, rhonchi, rales Heart: RRR without murmur, gallop, or rubs. No ectopy Abdomen: Normal abdominal exam, Abdomen soft, non-tender. Bowel sounds normal. No masses, organomegaly Extremities: No deformities, edema, skin discoloration, clubbing or cyanosis. Good capillary refill. Musculoskeletal: No joint swelling, deformity, or tenderness Peripheral pulses: Normal Neuro: Negative. ASSESSMENT/PLAN: 1. SOB (shortness of breath) - ICD9: 786.05, ICD10: R06.02 (primary diagnosis) - does not feel she can go on a treadmill. Has difficulty ambulating that fast. Will do nuclear stress test. Red flags for re-assessment reviewed with patient in detail. - get echo. - ECG COMPLETE 2. Chronic diastolic CHF (congestive heart failure) (HCC) - ICD9: 428.32, 428.0, ICD10: I50.32 - stable. 3. Essential hypertension, benign - ICD9: 401.1, ICD10: I10 - stay on current meds. Check labs. - CBC + DIFF - BASIC METABOLIC PNL - MAGNESIUM BLD 4. Type 2 diabetes mellitus without complication, without long-term current use of insulin (HCC) - ICD9: 250.00, ICD10: E11.9 Controlled. - Continue current medications 5. Aortic valve sclerosis - ICD9: 424.1, ICD10: I35.8 - stable. 6. Pericardial effusion - ICD9: 423.9, ICD10: I31.3 - per cardiology 7. Urge incontinence - ICD9: 788.31, ICD10: N39.41 - increase oxybutinin - OXYBUTYNIN CHLORIDE ER 10 MG TABLET,EXTENDED RELEASE 24 HR Rhett Reece MD documented in this encounter [facility] 12-26-2021 Miscellaneous Notes Patient has been identified by name and date of : Yes Requested Prescriptions Pending Prescriptions Disp Refills traZODone (DESYREL) 50 mg tablet 90 tablet 2 Sig: Take 1 tablet by mouth daily at bedtime. hydroCHLOROthiazide (HYDRODIURIL, ESIDRIX) 25 mg tablet 90 tablet 2 Sig: Take 1 tablet by mouth once daily. RX INSTRUCTIONS: Patient requesting a call when RX is approved and sent to the pharmacy. Please call patient at: [phone]. Karen Sandoval Pss documented in this encounter [facility] 12-11-2021 Miscellaneous Notes Patient was made aware of the results. Patient verbalizes understanding. She will get the disk for comparison. Yaz Galindo Ma Attempted to reach patient, no answer. Voicemail box is full. Please try again Please advise 11/23/2021 CT chest showed pulmonary nodules which are not new. Please have patient obtain copy and load 03/26/2019 CT Chest [facility] for radiology comparison. Thanks, Halley Black PA-C documented in this encounter [facility] 12-10-2021 Instructions Peyton Holman APRN.BOOK SORTER - 12/10/2021 1:40 PM EDT Heart Disease in Women Is heart disease a problem for women? Heart disease is the leading cause of of [place] women. More women from heart disease than from cancer. A heart attack can happen when there are problems with the blood vessels that bring blood to the heart (the coronary arteries). For example, fatty deposits called plaque may build up in the coronary arteries and make them narrower. The narrowing decreases blood flow to the heart. Plaque also increases the chance that blood clots may form and block a blood vessel, which can cause a heart attack or stroke. In the first year after a heart attack, women have an increased risk of . In the first 6 years after a heart attack, they also have a higher risk of a second heart attack. Women are at high risk often because they are older at the time of the heart attack and have other medical problems. Not everyone has the same symptoms. The most common symptoms of a heart attack include: Chest pain or pressure, squeezing, or fullness in the center of your chest that lasts more than a few minutes, or goes away and comes back (may feel like indigestion or heartburn) Pain or discomfort in one or both arms or shoulders, or in your back, neck, jaw, or stomach Trouble breathing Breaking out in a cold sweat for no known reason Along with these symptoms, you may also feel very tired, faint, or be sick to your stomach. Sometimes you can be having a heart attack and not know it. Many women have chest pain or pressure, but sometimes symptoms in women are different from men s symptoms. Or women may have additional symptoms, such as: Unexplained anxiety and nervousness Swelling of the ankles or lower legs Because they may not feel the typical pain in the left side of their chest, many women may ignore the symptoms of a heart attack. Call 911 for emergency help right away if you have these symptoms. Do not drive yourself to the hospital. Immediate emergency care improves your chances of survival and may help avoid damage to your heart. How can women lower their risk for heart disease? If you have high blood pressure, carefully follow your healthcare provider's instructions for keeping it under control. If you are a smoker, stop smoking. Try to keep a healthy weight. If you are overweight, talk to your provider about ways to lose weight. Eat a healthy diet that includes: ?Avoiding salty foods and not adding salt to food ?Increasing fiber, fruits, and vegetables ?Avoiding foods high in fat, cholesterol, and sugar Exercise according to your healthcare provider's instructions. Get enough rest and learn to use relaxation methods to help reduce stress. Treat and control medical conditions such as diabetes and high cholesterol. If you are taking hormone therapy, you and your healthcare provider should discuss the risks and benefits. Hormone therapy may increase the risk for heart disease or stroke. Talk with your provider about taking aspirin. Low-dose aspirin therapy reduces the risk of stroke for women. But it helps to lower a woman s risk of heart attack and other heart problems only if she is 65 or older. Make sure that your provider knows about any other medicines you are taking. If you decide you need to make changes in the way you live, you probably won't be able to turn your life around all at once. Try to develop healthy habits that incorporate your lifestyle goals. If you do, you will greatly decrease your chances for developing heart disease. You can get more information from: [place] [facility] Ohkqohdexho6-904-NIL-USA-1 ( )www.heart.org Developed by [employer]. Published by [employer]. Copyright 2014 [employer] and/or one of its subsidiaries. All rights reserved. documented in this encounter [facility] 12-10-2021 History of Present illness Narrative Images from the original note were not included. [facility] SE[facility]AL CARDIOLOGY Cardiology ([place] ([facility]) [address] [facility] [id number] OUTPATIENT VISIT December 10, 2021 1:00 PM Chief Complaint Patient presents with: New Patient History of Present Illness: Lauryn Brumfield is a 71 year old female who presents for cardiology evaluation. She has a PMhx of HTN, cardiomyopathy, KAYCEE, LE edema, obesity. She is unable to tell me why she was referred for cardiology evaluation. She states she is mildly active. She will do routine housework and run errands. She will also do yard work but this includes a ride mower. She notes feeling fatigued but otherwise is without significant cardiac complaints. She denies chest pain, chest pain with activity, SOB, palpitations, dizziness, syncope, orthopnea. She endorses mild lower extremity swelling. We reviewed cardiac risk factors and modifications. She reports taking medications as prescribed and requests no refills at this time. Her blood pressure suboptimal in office today she is agreeable to medication adjustments. PAST MEDICAL HISTORY Diagnosis Date Cardiomyopathy in other diseases classified elsewhere echo 2008-normal EF Complication of anesthesia Diverticulosis of colon (without mention of hemorrhage) Esophageal reflux Gastroesophageal reflux Internal hemorrhoids without mention of complication Mental disorder Myalgia and myositis, unspecified Fibromyalgia (myalgia and myositis) PMH - PAST MEDICAL HISTORY OF pre diabetic Sleep apnea Unspecified essential hypertension Essential hypertension PAST SURGICAL HISTORY Procedure Laterality Date COLONOSCOPY FLX DX W/COLLJ SPEC WHEN PFRMD 1999 Colonoscopy-due 2009 COLONOSCOPY FLX DX W/COLLJ SPEC WHEN PFRMD 01/29/10 CRANIEC TREPHINE BONE FLP BRAIN TUMOR SUPRTENTOR 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 Stroke Mother Alzheimer's Disease Father Osteoporosis Sister Thyroid Daughter Cancer Brother kidney ca./renal cell Coronary Artery Disease Brother [place], has a bad disc is the same as above Cancer Maternal Grandmother liver ca. Stroke Maternal Aunt Social History Tobacco Use Smoking status: Former Smokeless tobacco: Never Tobacco comments: was a casual smoker. Hasn't smoked since she was 48yrs. Vaping Use Vaping Use: Never used Substance Use Topics Alcohol use: No Drug use: No Cardiac Risk Factors: age (male over 45, female over 55), hyperlipidemia, obesity, diabetes, hypertension, family history of CAD ALLERGIES Allergen Reactions Metal [Other] Rash, Itching Nickel Rash, Itching Amlodipine Swelling Lisinopril Cough Nitrofurantoin Rash Possible skin reaction with nitrofurantion. Medications: Current Outpatient Medications Medication Sig Dispense Refill pantoprazole DR (PROTONIX) 40 mg tablet Take 1 tablet by mouth twice daily. Take on empty stomach, 1/2 hr before meal. 180 tablet 1 gabapentin (NEURONTIN) 300 mg capsule Take 1 capsule by mouth three times daily for 90 days. 90 capsule 2 colestipol (COLESTID) 1 gram tablet Take 1 tablet by mouth once daily. 90 tablet 1 oxybutynin (DITROPAN) 5 mg tablet Take 1 tablet by mouth twice daily. 60 tablet 5 spironolactone (ALDACTONE) 50 mg tablet Take 1 tablet by mouth once daily. 90 tablet 1 magnesium oxide 200 mg magnesium chew Take 1 tablet by mouth twice daily. 60 tablet 5 furosemide (LASIX) 20 mg tablet Take 1 tablet by mouth once daily. 3 tablet 0 triamcinolone (KENALOG IN ORABASE) 0.1 % paste 0.25 Inches by DENTAL route twice daily. (Patient taking differently: 0.25 Inches by DENTAL route as needed.) 2 g 1 hydroCHLOROthiazide (HYDRODIURIL, ESIDRIX) 25 mg tablet Take 1 tablet by mouth once daily. 90 tablet 1 losartan (COZAAR) 100 mg tablet Take 1 tablet by mouth once daily. 90 tablet 3 metFORMIN (GLUCOPHAGE) 500 mg tablet Take 2 tablets by mouth twice daily with meals. 360 tablet 3 atorvastatin (LIPITOR) 20 mg tablet Take 1 tablet by mouth daily at bedtime. For cholesterol. 90 tablet 1 traZODone (DESYREL) 50 mg tablet Take 1 tablet by mouth daily at bedtime. 90 tablet 1 FLUoxetine (PROZAC) 20 mg capsule TAKE 4 CAPSULES BY MOUTH ONCE DAILY. 360 capsule 1 lancets (ONE TOUCH DELICA) 33 gauge USE INSTRUCTED. Test 1-2 times daily. DX: E11.9 Insulin:No 100 Each 3 urea (CARMOL) 40 % Apply to affected area twice daily. (Patient not taking: Reported on 11/01/2021 ) 198 g 11 atenolol (TENORMIN) 50 mg tablet Take 1.5 tablets by mouth twice daily. 270 tablet 3 blood sugar diagnostic (BLOOD GLUCOSE TEST) test strip Test blood sugar(s) 2-3 times daily. Dx: Type 2 DM - Controlled E11.9 Insulin: No 90 Strip 5 blood sugar diagnostic (ONETOUCH VERIO) test strip TEST BLOOD SUGAR(S) 2 TO 3 TIMES DAILY. DX: TYPE 2 DM - CONTROLLED E11.9 INSULIN: NO 100 Strip 11 ONETOUCH DELICA LANCETS 30 gauge misc TEST BLOOD SUGAR 2-3 TIMES DAILY 100 Each 3 Current Facility-Administered Medications Medication Dose Route Frequency Provider Last Rate Last Admin perflutren lipid microspheres 1.3 mL in NaCl (PF) 0.9% 10 mL injection (DEFINITY) INTRAVENOUS DIRECTED PRN Rhett Reece MD sodium chloride 0.9 % (flush) 10 mL (BD POSIFLUSH) 10 mL INTRAVENOUS DIRECTED PRN Rhett Reece MD Review of Systems Constitutional: Positive for malaise/fatigue. Negative for chills, diaphoresis, fever and weight loss. HENT: Negative for congestion, ear pain, nosebleeds, sinus pain and sore throat. Eyes: Negative for pain. Respiratory: Negative for cough, shortness of breath and wheezing. Cardiovascular: Negative for chest pain, palpitations and leg swelling. Gastrointestinal: Negative for abdominal pain, blood in stool and melena. Genitourinary: Negative for hematuria. Musculoskeletal: Positive for joint pain. Negative for falls. Neurological: Negative for dizziness, tingling, sensory change, speech change, focal weakness, loss of consciousness, weakness and headaches. Endo/Heme/Allergies: Does not bruise/bleed easily. Psychiatric/Behavioral: Negative for depression, memory loss and suicidal ideas. The patient is not nervous/anxious and does not have insomnia. Physical Examination: Vitals:BP 150/72 Pulse 63 Wt 192 lb 6.4 oz (87.3kg) Last 2 Encounter Wt Readings: Date: Wt: 11/28/2021 193 lb 9.6 oz (87.8 kg) 11/21/2021 196 lb (88.9 kg) Physical Exam HENT: Head: Normocephalic. Eyes: Pupils: Pupils are equal, round, and reactive to light. Cardiovascular: Rate and Rhythm: Normal rate. Pulses: Radial pulses are 2+ on the right side and 2+ on the left side. Dorsalis pedis pulses are 2+ on the right side and 2+ on the left side. Heart sounds: Normal heart sounds, S1 normal and S2 normal. Pulmonary: Effort: Pulmonary effort is normal. No accessory muscle usage or respiratory distress. Breath sounds: Normal breath sounds. Abdominal: General: Bowel sounds are normal. Palpations: Abdomen is soft. Musculoskeletal: General: Normal range of motion. Cervical back: Normal range of motion. Right lower leg: Right lower leg edema: trace. Left lower leg: Left lower leg edema: trace. Skin: General: Skin is warm and dry. Neurological: Mental Status: She is alert and oriented to person, place, and time. Gait: Gait is intact. Psychiatric: Mood and Affect: Affect normal. Cognition and Memory: Memory normal. Judgment: Judgment normal. Most Recent Cardiac Testing 11/27/2021 CONCLUSIONS: - Technically difficult exam due to body habitus. - Exam indication: Shortness of Breath - The left ventricle is normal in size. Left ventricular systolic function is normal. EF = 65 5% (2D 4-ch.) Grade I left ventricular diastolic dysfunction. - The right ventricle is normal in size. Right ventricular systolic function is normal. - There are no significant valvular abnormalities. - There is a small pericardial effusion adjacent to the LV. - Exam was compared with the prior echocardiographic exam performed on 10/03/2008. There has been very little change. Assessment and Plan: HTN -150/72 -Continue current medication(s) -Encouraged dietary sodium restriction/DASH diet -Recommended regular aerobic exercise. -Recommend home blood pressure monitoring, to bring results in on next visit -Discussed need and benefit for weight loss. -Goal of BP <130/80 Chronic diastolic HF -EF 65% -compensated on exam exam -BNP 502 -continue HCTZ, aldactone and BB -recommended heart healthy, 2g low sodium diet, daily weights LE edema -trace on exam today. She notes dependent in nature -continue Aldactone and hydrochlorothiazide -Recommended conservative management with elevation, compression stockings and low-salt diet Pericardial effusion -small, repeat echocardiogram in 1 month for surveillance -Consider rheumatology evaluation if other inflammatory processes HLD -lipid panel 09/2021 LDL 55 -continue Lipitor 20 mg Obesity -lifestyle modifications -encouraged a heart healthy diet, routine exercise and weight loss Follow-up in 1 year. Sooner for abnormal testing results. Patient to call with any issues or concerns prior to then. Electronically signed by Peyton Holman APRN.CNP on December 10, 2021, 1:02 PM documented in this encounter [facility] 12-03-2021 Miscellaneous Notes Patient phones requesting refills as follows: Pending Prescriptions Disp Refills PANTOPRAZOLE 40 MG TABLET,DELAYED RELEASE 180 tablet 1 Sig: Take 1 tablet by mouth twice daily. Take on empty stomach, 1/2 hr before meal. JENNIFER: No GABAPENTIN 300 MG CAPSULE 90 capsule 2 Sig: Take 1 capsule by mouth three times daily for 90 days. JENNIFER: No COLESTIPOL 1 GRAM TABLET 90 tablet 1 Sig: Take 1 tablet by mouth once daily. JENNIFER: No Please review and advise. Eileen Ring LPN documented in this encounter [facility] 12-01-2021 Miscellaneous Notes Patient states her pharmacy is out of [employer], asking for a substitution. Conferenced to nurse Avalos at [facility] Mindy Hector's office. documented in this encounter [facility] 11-30-2021 Miscellaneous Notes Phone call placed patient advised (see prior provider encounter) Patient reported Pulmonary appointment with [facility] 01/29/2022 scheduled appointments printed mailed to listed address. Brigette Sandoval LPN Left message to call office. (When is she seeing pulm? Will need to fax result.) Ct scan shows small nodules. They recommend repeating the ct in one year. Keep your follow up with pulmonary. documented in this encounter [facility] 11-29-2021 History of Present illness Narrative Radiology Service Progress Note PATIENT NAME: Lauryn Brumfield DATE OF SERVICE: November 29, 2021 TIME: 9:59 AM PATIENT IDENTITY VERIFICATION COMPLETED USING TWO (2) IDENTIFIERS: Name and Date of confirmed by patient verbally. FALL SCREENING: Has the patient had 2 falls in the last year or 1 fall with injury or currently using an Ambulatory Assistive Device (Walker, Cane, Wheelchair, Crutches, etc.)? No PATIENT GENDER DATA: Female. status: : No status: NO. PATIENT RELEVANT IMPLANT DATA REVIEWED: Yes RADIOLOGY DEPARTMENT: CT; Exam(s) Completed: Chest PERIPHERAL IV DATA: Not applicable SIGNED BY: RT Jose(R) November 29, 2021 9:59 AM documented in this encounter [facility] 11-28-2021 Miscellaneous Notes See office notes. Mindy Hector APRN.BOOK SORTER Discuss at OV tomorrow with GARMENT MANUFACTURING SUPERVISOR. Robbie Floyd LPN Echo is overall ok. Shows normal heart function. There is a tiny amount of fluid in the area of the heart that is likely not significant, however, given her swelling and mildly elevated bnp, can have her see cardiology to be on the safe side. documented in this encounter [facility] 11-28-2021 Miscellaneous Notes [facility] calling to state they received patient's referral but need demographic page. Information faxed to [phone] as requested. Kayla Coreas RN documented in this encounter [facility] 11-28-2021 Instructions Mindy Hector APRN.ADAL - 11/28/2021 2:32 PM EDT 1. Increase the spironolactone to 50 mg daily. 2. Start the vesicare (for overactive bladder) once daily. 3. Recheck in a month. documented in this encounter [facility] 11-28-2021 History of Present illness Narrative This is a 71 year old female who presents today with: Patient presents with: Follow Up: edema in legs and feet HISTORY OF PRESENT ILLNESS: Lauryn Brumfield is a 71 year old female. Patient presents with: Follow Up: edema in legs and feet Pt presents today to follow-up of test results/swelling. She initially presented on 11/21/2021 with complaints of some dependent edema. She was on several diuretics. Lab work was obtained, including a BNP. Her BNP returned at 502. Her magnesium was low at 1.6. At that time, an echocardiogram and chest x-ray were ordered. She was given 3 doses of Lasix. She had repeat lab work completed. Her magnesium continues to be low, so her magnesium was increased to twice daily. Her chest x-ray showed several small lung nodules, so she does have CT scheduled to follow-up. Her echocardiogram showed normal heart function but a small amount of fluid. She has a follow-up with cardiology scheduled. She reports that she continues with BLE swelling. Refers that it is more dependent in nature. Requesting possibility of continued lasix. She also reports symptoms of OAB. No painful urination. Reports urgency as she is approaching the bathroom/toilet. Refers that she wears attends/depends d/t urgency and leakage. PAST MEDICAL HISTORY: PAST MEDICAL HISTORY Diagnosis Date Cardiomyopathy in other diseases classified elsewhere echo 2009-normal EF Complication of anesthesia Diverticulosis of colon (without mention of hemorrhage) Esophageal reflux Gastroesophageal reflux Internal hemorrhoids without mention of complication Mental disorder Myalgia and myositis, unspecified Fibromyalgia (myalgia and myositis) PMH - PAST MEDICAL HISTORY OF pre diabetic Sleep apnea Unspecified essential hypertension Essential hypertension PAST SURGICAL HISTORY Procedure Laterality Date COLONOSCOPY FLX DX W/COLLJ SPEC WHEN PFRMD 1999 Colonoscopy-due 2009 COLONOSCOPY FLX DX W/COLLJ SPEC WHEN PFRMD 01/29/10 CRANIEC TREPHINE BONE FLP BRAIN TUMOR SUPRTENTOR 1998 acoustic neuroma brain surgery DENTAL SURGERY PROCEDURE 04/2010 laser top right teeth EGD 04/01/2018 Dr Miller ESOPHAGOGASTRODUODENOSCOPY TRANSORAL DIAGNOSTIC 05/2003 EGD PAST SURGICAL HISTORY OF right foot surgery, neuroma excised SIGMOIDOSCOPY FLX DX W/COLLJ SPEC BR/WA IF PFRMD 09/01/14 Sigmoidoscopy, flexible ALLERGIES Metal [Other], Nickel, Amlodipine, Lisinopril, and Nitrofurantoin MEDICATIONS Current Outpatient Medications Medication Sig magnesium oxide 200 mg magnesium chew Take 1 tablet by mouth twice daily. lancets (ONE TOUCH [employer]) 33 gauge USE INSTRUCTED. Test 1-2 times daily. DX: E11.9 Insulin:No gabapentin (NEURONTIN) 300 mg capsule Take 1 capsule by mouth three times daily for 90 days. colestipol (COLESTID) 1 gram tablet Take 1 tablet by mouth once daily. hydroCHLOROthiazide (HYDRODIURIL, ESIDRIX) 25 mg tablet Take 1 tablet by mouth once daily. losartan (COZAAR) 100 mg tablet Take 1 tablet by mouth once daily. metFORMIN (GLUCOPHAGE) 500 mg tablet Take 2 tablets by mouth twice daily with meals. atorvastatin (LIPITOR) 20 mg tablet Take 1 tablet by mouth daily at bedtime. For cholesterol. traZODone (DESYREL) 50 mg tablet Take 1 tablet by mouth daily at bedtime. FLUoxetine (PROZAC) 20 mg capsule TAKE 4 CAPSULES BY MOUTH ONCE DAILY. pantoprazole DR (PROTONIX) 40 mg tablet Take 1 tablet by mouth twice daily. Take on empty stomach, 1/2 hr before meal. spironolactone (ALDACTONE) 25 mg tablet Take 1 tablet by mouth once daily. blood sugar diagnostic (BLOOD GLUCOSE TEST) test strip Test blood sugar(s) 2-3 times daily. Dx: Type 2 DM - Controlled E11.9 Insulin: No blood sugar diagnostic (ONETOUCH VERIO) test strip TEST BLOOD SUGAR(S) 2 TO 3 TIMES DAILY. DX: TYPE 2 DM - CONTROLLED E11.9 INSULIN: NO ONETOUCH DELICA LANCETS 30 gauge [facility] TEST BLOOD SUGAR 2-3 TIMES DAILY furosemide (LASIX) 20 mg tablet Take 1 tablet by mouth once daily. triamcinolone (KENALOG IN ORABASE) 0.1 % paste 0.25 Inches by DENTAL route twice daily. urea (CARMOL) 40 % Apply to affected area twice daily. (Patient not taking: Reported on 11/01/2021 ) atenolol (TENORMIN) 50 mg tablet Take 1.5 tablets by mouth twice daily. Current Facility-Administered Medications Medication Dose Route Frequency perflutren lipid microspheres 1.3 mL in NaCl (PF) 0.9% 10 mL injection (DEFINITY) INTRAVENOUS DIRECTED PRN sodium chloride 0.9 % (flush) 10 mL (BD POSIFLUSH) 10 mL INTRAVENOUS DIRECTED PRN FAMILY HISTORY Problem Relation Age of Onset Cancer Mother bladder ca. Stroke Mother Alzheimer's Disease Father Osteoporosis Sister Thyroid Daughter Cancer Brother kidney ca./renal cell Coronary Artery Disease Brother [place], has a bad disc is the same as above Cancer Maternal Grandmother liver ca. Stroke Maternal Aunt Social History Tobacco Use Smoking status: Former Smoker Smokeless tobacco: Never Used Tobacco comment: was a casual smoker. Hasn't smoked since she was 48yrs. Vaping Use Vaping Use: Never used Substance Use Topics Alcohol use: No Drug use: No EXAM: BP 138/80 Pulse (!) 58 Resp 16 Wt 87.8 kg (193 lb 9.6 oz) SpO2 97% BMI 32.65 kg/m PHYSICAL EXAM: General Appearance: Well appearing, alert, in no acute distress, well-hydrated, well nourished.. Skin: Skin color, texture, turgor normal, no suspicious rashes or lesions. Head: Normocephalic, no masses, lesions, tenderness or abnormalities. Eyes: Anicteric sclera. Pupils are equally round and reactive to light. Extraocular movements are intact. Lungs: Lungs clear to auscultation. No wheezing, rhonchi, rales.. Heart: RRR without murmur, gallop, or rubs. No ectopy. Extremities: No deformities, skin discoloration, clubbing or cyanosis. Trace - +1 pitting edema BLE. Good capillary refill. Neurologic: Gait normal. ASSESSMENT/PLAN: 1. Edema, unspecified type - ICD9: 782.3, ICD10: R60.9 (primary diagnosis) Will go ahead and increase the spironolactone. Recheck in 1 month. - SPIRONOLACTONE 50 MG TABLET 2. OAB (overactive bladder) - ICD9: 596.51, ICD10: N32.81 Discussed options. Will trial vesicare. Recheck in a month. - SOLIFENACIN 5 MG TABLET 3. Elevated brain natriuretic peptide (BNP) level - ICD9: 790.99, ICD10: R79.89 Increase spironolactone. Follow-up w/ cardiology, as scheduled. - SPIRONOLACTONE 50 MG TABLET 4. Lung nodules - ICD9: 793.19, ICD10: R91.[address] as planned. 5. Hypomagnesemia - ICD9: 275.2, ICD10: E83.42 Continue the magnesium twice daily. 6. Pericardial effusion - ICD9: 423.9, ICD10: I31.3 Follow-up with cardiology, as planned. Discussed treatment plan and patient voices understanding. Patient's questions answered appropriately. Medications and potential side effects were discussed and patient voices understanding. Return to the office as scheduled or as needed for worsening/no improvement. Mindy Hector APRN.ADAL This note was partially generated using [employer] voice recognition system. Note was reviewed for accuracy. There may be minor misspellings or grammar miscues with [employer] voice recognition. documented in this encounter [facility] 11-26-2021 Miscellaneous Notes patient called back and was transferred to [facility] monitor technician. Zhanna Coughlin LPN Advised patient to call office when she is free. In line now at [facility]. States that she did schedule with pul for her follow up like we had asked her to. Need that date so that we can send x-ray to them. Xray shows several small lung nodules. That is not unusual and may not mean much. They recommend ct scan for better pictures. Also mag is still low. Increase mag to bid and recheck mag in one month documented in this encounter [facility] 11-26-2021 History of Present illness Narrative Radiology Service Progress Note PATIENT NAME: Lauryn Brumfield DATE OF SERVICE: November 26, 2021 TIME: 11:07 AM PATIENT IDENTITY VERIFICATION COMPLETED USING TWO (2) IDENTIFIERS: Name and Date of confirmed by patient verbally. FALL SCREENING: Has the patient had 2 falls in the last year or 1 fall with injury or currently using an Ambulatory Assistive Device (Walker, Cane, Wheelchair, Crutches, etc.)? No PATIENT GENDER DATA: Female. status: : No status: NO. PATIENT RELEVANT IMPLANT DATA REVIEWED: Not Applicable RADIOLOGY DEPARTMENT: General X-ray: Exam(s) Completed: Chest X-Ray PERIPHERAL IV DATA: Not applicable SIGNED BY: RT Sabrina(R) November 26, 2021 11:07 AM documented in this encounter [facility] 11-21-2021 History of Present illness Narrative Patient presents with: Fatigue Weight Problem: feels like gaining weight does have some swelling HPI: Patient presents today for office visit for follow up. Just saw Halley for check up six months ago. Is concerned with weight. Did go up between the last two visits but is actually down 3 oz since last visit. Has some dependent edema. No redness or warmth. Definitely worse at end of the day. Is on is several diuretics. HTN: Patient is compliant with meds Yes Denies side effects: Yes. Chest pain: No. Dyspnea: Chronic. Is not up to date with her pulmonary or cardiac evals. . DM:stable PULM:sees Dr Dunlap. Rheum:no changes. Complains of overall fatigue. MEDICATIONS: Current Outpatient Medications Medication Sig gabapentin (NEURONTIN) 300 mg capsule Take 1 capsule by mouth three times daily for 90 days. magnesium oxide 200 mg magnesium chew Take 1 tablet by mouth once daily. triamcinolone (KENALOG IN ORABASE) 0.1 % paste 0.25 Inches by DENTAL route twice daily. (Patient not taking: Reported on 11/01/2021 ) colestipol (COLESTID) 1 gram tablet Take 1 tablet by mouth once daily. hydroCHLOROthiazide (HYDRODIURIL, ESIDRIX) 25 mg tablet Take 1 tablet by mouth once daily. losartan (COZAAR) 100 mg tablet Take 1 tablet by mouth once daily. metFORMIN (GLUCOPHAGE) 500 mg tablet Take 2 tablets by mouth twice daily with meals. atorvastatin (LIPITOR) 20 mg tablet Take 1 tablet by mouth daily at bedtime. For cholesterol. traZODone (DESYREL) 50 mg tablet Take 1 tablet by mouth daily at bedtime. FLUoxetine (PROZAC) 20 mg capsule TAKE 4 CAPSULES BY MOUTH ONCE DAILY. pantoprazole DR (PROTONIX) 40 mg tablet Take 1 tablet by mouth twice daily. Take on empty stomach, 1/2 hr before meal. urea (CARMOL) 40 % Apply to affected area twice daily. (Patient not taking: Reported on 11/01/2021 ) spironolactone (ALDACTONE) 25 mg tablet Take 1 tablet by mouth once daily. atenolol (TENORMIN) 50 mg tablet Take 1.5 tablets by mouth twice daily. lancets (ONE TOUCH DELICA) 33 gauge USE INSTRUCTED. Test 1-2 times daily. DX: E11.9 Insulin:No blood sugar diagnostic (BLOOD GLUCOSE TEST) test strip Test blood sugar(s) 2-3 times daily. Dx: Type 2 DM - Controlled E11.9 Insulin: No blood sugar diagnostic (ONETOUCH VERIO) test strip TEST BLOOD SUGAR(S) 2 TO 3 TIMES DAILY. DX: TYPE 2 DM - CONTROLLED E11.9 INSULIN: NO ONETOUCH DELICA LANCETS 30 gauge misc TEST BLOOD SUGAR 2-3 TIMES DAILY No current facility-administered medications for this visit. ALLERGIES: ALLERGIES Allergen Reactions Metal [Other] Rash, Itching Nickel Rash, Itching Amlodipine Swelling Lisinopril Cough Nitrofurantoin Rash Possible skin reaction with nitrofurantion. PAST MEDICAL HISTORY Diagnosis Date Cardiomyopathy in other diseases classified elsewhere echo 2009-normal EF Complication of anesthesia Diverticulosis of colon (without mention of hemorrhage) Esophageal reflux Gastroesophageal reflux Internal hemorrhoids without mention of complication Mental disorder Myalgia and myositis, unspecified Fibromyalgia (myalgia and myositis) PMH - PAST MEDICAL HISTORY OF pre diabetic Sleep apnea Unspecified essential hypertension Essential hypertension PAST SURGICAL HISTORY Procedure Laterality Date COLONOSCOPY FLX DX W/COLLJ SPEC WHEN PFRMD 1999 Colonoscopy-due 2009 COLONOSCOPY FLX DX W/COLLJ SPEC WHEN PFRMD 01/29/10 CRANIEC TREPHINE BONE FLP BRAIN TUMOR SUPRTENTOR 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 Stroke Mother Alzheimer's Disease Father Osteoporosis Sister Thyroid Daughter Cancer Brother kidney ca./renal cell Coronary Artery Disease Brother [place], has a bad disc is the same as above Cancer Maternal Grandmother liver ca. Stroke Maternal Aunt Social History Tobacco Use Smoking status: Former Smoker Smokeless tobacco: Never Used Tobacco comment: was a casual smoker. Hasn't smoked since she was 48yrs. Vaping Use Vaping Use: Never used Substance Use Topics Alcohol use: No Drug use: No Reviewed current medications, allergies, past medical history, surgical history, family history and social history today. REVIEW OF SYSTEMS All other reviewed and negative other than HPI. VITALS: BP 142/82 Pulse (!) 56 Wt 88.9 kg (196 lb) BMI 33.06 kg/m Last 4 Encounter Wt Readings: Date: Wt: 08/20/2021 89 kg (196 lb 3.2 oz) 03/13/2021 83.9 kg (185 lb) 02/19/2021 83.9 kg (185 lb) 12/04/2020 81.2 kg (179 lb) PHYSICAL EXAMINATION: General appearance: Well appearing, [...] Bowel sounds normal. No masses, organomegaly Extremities: one plus edema. No calf tenderness. No redness or warmth. No palpable cords. Musculoskeletal: No joint swelling, deformity, or tenderness Peripheral pulses: Normal Neuro: Negative. ASSESSMENT/PLAN: 1. Essential hypertension, benign - ICD9: 401.1, ICD10: I10 (primary diagnosis) - fair control - Continue current medication(s) - Goal of BP <130/80 - CBC + DIFF - COMP METABOLIC PANEL - MAGNESIUM BLD 2. Family history of ischemic heart disease - ICD9: V17.3, ICD10: Z82.49 - follow up with cardiology again. - CONSULT TO CARDIOLOGY 3. Hyperlipidemia, unspecified hyperlipidemia type - ICD9: 272.4, ICD10: E78.5 - good control - Continue current medication. 4. Lung nodule - ICD9: 793.11, ICD10: R91.1 Follow with her clay hoister. 5. Asthma with chronic obstructive pulmonary disease (COPD) (HCC) - ICD9: 493.20, ICD10: J44.9} - CONSULT TO PULM/CRITICAL CARE 6. Sleep apnea, unspecified type - ICD9: 780.57, ICD10: G47.30 - see pulmonary in case is contributing. 7. Type 2 diabetes mellitus without complication, without long-term current use of insulin (HCC) - ICD9: 250.00, ICD10: E11.9 - LANCETS 33 GAUGE 8. Inflammatory polyarthritis (HCC) - ICD9: 714.9, ICD10: M06.4 - stable. 9. Pericardial effusion - ICD9: 423.9, ICD10: I31.3 - follow with cardiology - CONSULT TO CARDIOLOGY 10. SOB (shortness of breath) - ICD9: 786.05, ICD10: R06.02 - check labs. Complaint is chronic - NT PRO BNP 11. Fatigue, unspecified type - ICD9: 780.79, ICD10: R53.83 Check labs. - CBC + DIFF - COMP METABOLIC PANEL - TSH BLD - TSH BLD Rhett Reece RTO in six weeks and prn. documented in this encounter [facility] 11-01-2021 Instructions Mandeep Álvarez - 11/01/2021 2:43 PM EDT Diabetes Foot Care Instructions When you have diabetes, proper foot care is very important. Poor foot care may lead to amputation of a foot or leg. As a person with diabetes, you are more vulnerable to foot problems, because diabetes can damage your nerves and reduce blood flow to your feet. Here are some diabetes foot care tips to follow: Wash and Dry Your Feet Daily Use mild soaps Use warm water Pat your skin dry; do not rub. Thoroughly dry your feet. After washing, use lotion on your feet to prevent cracking. Do not put lotion between your toes. Examine Your Feet Each Day Check the tops and bottoms of your feet. Have someone else look at your feet if you cannot see them. Check for dry, cracked skin. Look for blisters, cuts, scratches, or other sores. Check for redness, increased warmth, or tenderness when touching any area of your feet. Check for ingrown toenails, corns, and calluses. If you get a blister or sore from your shoes, do not pop it. Apply a bandage and wear a different pair of shoes. Take Care of Your Toenails Cut toenails after bathing, when they are soft. Cut toenails straight across and smooth with a nail file. Avoid cutting into the corners of toes. Do not cut cuticles. If you have neuropathy (or decreased sensation in your feet) a cup machine operator should always cut your toenails. Be Careful When Exercising Walk and exercise in comfortable shoes. Do not exercise when you have open sores on your feet. Protect Your Feet With Shoes and Socks Never go barefoot. Always protect your feet by wearing shoes or hard-soled slippers or footwear. Avoid shoes with high heels and pointed toes. Avoid shoes that expose your toes or heels (such as open-toed shoes or sandals). These types of shoes increase your risk for injury and potential infections. Try on new footwear with the type of socks you usually wear. Do not wear new shoes for more than an hour at a time. Change your socks daily. Look and feel inside your shoes before putting them on to make sure there are no foreign objects or rough areas. Avoid tight socks. Wear natural-fiber socks (cotton, wool, or a cotton-wool blend). Wear special shoes if your health care provider recommends them. Wear shoes/boots that will protect your feet from various weather conditions (cold, moisture, etc.). Make sure your shoes fit properly. If you have neuropathy (nerve damage), you may not notice that your shoes are too tight. Perform the footwear test described below. Footwear Test Use this simple test to see if your shoes fit correctly: Stand on a piece of paper. (Make sure you are standing and not sitting, because your foot changes shape when you stand.) Trace the outline of your foot. Trace the outline of your shoe. Compare the tracings: Is the shoe too narrow? Is your foot crammed into the shoe? The shoe should be at least 1/2 inch longer than your longest toe and as wide as your foot. Proper Shoe Choices The following types of shoes are best for people with diabetes Closed toes and heels Leather uppers without a seam inside At least 1/2 inch extra space at the end of your longest toe Inside of shoe should be soft with no rough areas Outer sole should be made of stiff material Shoes should be at least as wide as your feet Tips for Foot Care in Diabetes Don't wait to treat a minor foot problem if you have diabetes. Follow your health care provider's guidelines and first aid guidelines. Report foot injuries and infections to your health care provider immediately. Check water temperature with your elbow, not your foot. Do not use a heating pad on your feet. Do not cross your legs. Do not self-treat your corns, calluses, or other foot problems. Go to your health care provider or cup machine operator to treat these conditions. documented in this encounter [facility] 11-01-2021 History of Present illness Narrative Last saw Halley lBack: 08/20/21 Subjective: Patient presents to clinic c/o painful toenails. They state that the nails are especially painful with shoe gear and pressure. Patient states that nails 1-5 b/l are painful. Patient admits to being diabetic. Patient does have some wounds to right anterior leg as a result of recent biopsy. Patient is currently applying aquafor to the wounds. No other pedal complaints at this time. Patient states no change in medications or medical history since last visit. Objective: Patient presents to clinic ambulating in sandals Vasc: DP and PT pulses are palpable bilateral. CFT is less than 5 seconds bilateral. Skin temperature is warm to cool proximal to distal bilateral. There is moderate edema or varicosities noted. Neuro: Protective sensation is intact to the foot and toes when tested with the 5.07 SWM bilateral. Vibratory sensation is decreased at the hallux IPJ bilateral. The hallux is downgoing bilateral. Derm: Nails 1-5 b/l are painfuldiscolored-yellow, thick, crumbly, dystrophic and with subungal debris. Skin is of normal turgor, texture and hair growth is present bilateral. There are no hyperkeratosis, ulcerations, scars, verruca or other lesions noted. Ortho: Muscle strength is 5/5 for all pedal groups tested. Ankle joint DF is full with the knee extended with no pain or crepitus noted. 1st MPJ ROM is full bilateral. Assessment: Onychomycosis with pain Diabetes Plan: Patient was seen and evaluated. Nails 1-5 bilateral were debrided in length and thickness. Patient is s/p biopsy of right leg. Biopsy sites appear to be healing. no ascending erythema. Mild erythema around surgical sites. offered antibiotic as precaution but she elected to monitor. Continue with local wound care per derm recommendations Could consider compression to help reduce swelling. Patient was instructed on the continued importance of diabetic foot care along with proper diet and keeping their blood sugar under control to prevent complications. Patient is to RTC in 3-4 months. Mandeep Álvarez DPM AMB ROOMING INTAKE FLOWSHEET DATA Risk Screening Do you have concerns about personal safety or safety in the home?: No Patient presents with: Left Foot - Established Patient, Diabetic Foot Care Right Foot - Established Patient, Diabetic Foot Care Patient recently had 3 moles removed from RLE. Would like Dr. Álvarez to give reassurance that no infection present. documented in this encounter [facility] 10-16-2021 Miscellaneous Notes Needs handicapped placard. documented in this encounter [facility] 09-18-2021 History of Present illness Narrative POPULATION HEALTH NAVIGATION OUTREACH Action/FYI Left message on patient's voice mail to return my call. Patient is on [employer] for the following HM care gaps: BP CONTROLLED (<130/80) - Patient has an appointment scheduled for 02/07/22. Dilated Retinal Exam - Due 03/12/22. Last done 03/12/21 at [facility]. ADVANCE DIRECTIVE DISCUSSION Pt identified by name and : NO Outreach Outcome/Action Unable to reach patient: Left message Reason for Outreach Care Gap or Scheduling/Wellness visits Payer: Payor: [employer] MEDICARE / Plan: [employer] MED[employer]ARE PPO / Product Type: PPO / Care Gap Reviewed:: Diabetic Eye Exam Reminder: Reminder note to check Health Maintenance for items below Health Maintenance items due: SPIROMETRY Never done BP CONTROLLED (<130/80) Never done SHINGRIX VACCINE(2 of 3) due on 12/18/2010 DTAP,TDAP,TD(2 - Td or Tdap) due on 01/01/2017 COVID-19 VACCINE(3 - Booster for Moderna series) due on 03/06/2021 ADVANCE DIRECTIVE DISCUSSION Never done Message Sent to Practice: No Navigation Signature: Yaz Duarte MA September 18, 2021 8:42 AM documented in this encounter [facility] 09-12-2021 History of Present illness Narrative Radiology Service Progress Note PATIENT NAME: Lauryn Brumfield DATE OF SERVICE: September 12, 2021 TIME: 11:29 AM PATIENT IDENTITY VERIFICATION COMPLETED USING TWO (2) IDENTIFIERS: Name and Date of confirmed by patient verbally. FALL SCREENING: Has the patient had 2 falls in the last year or 1 fall with injury or currently using an Ambulatory Assistive Device (Walker, Cane, Wheelchair, Crutches, etc.)? No PATIENT GENDER DATA: Female. status: : No status: NO. PATIENT RELEVANT IMPLANT DATA REVIEWED: Not Applicable RADIOLOGY DEPARTMENT: Bone Density PERIPHERAL IV DATA: Not applicable SIGNED BY: RT Trixie(R) September 12, 2021 11:29 AM documented in this encounter [facility] 09-07-2021 Miscellaneous Notes Last visit 08/20/21 Scheduled 02/07/22 Patient has been identified by name and date of : Yes Pending Prescriptions Disp Refills GABAPENTIN 300 MG CAPSULE 90 capsule 2 Sig: Take 1 capsule by mouth three times daily for 90 days. JENNIFER: No RX INSTRUCTIONS: Patient aware RX will be sent to pharmacy. No need to notify patient. Ruth Rain documented in this encounter [facility] 09-05-2021 Miscellaneous Notes Patient was notified and aware of blood work in december [place] [facility]. Thanks, Halley Black PA-C Halley - do you want this done on 12/05/21, expected date? Natasha Jacques Ma Please advise magnesium low- sent in rx. Recheck mag level next lab, orders placed. Other labs look stable/ good range. Telephone on 09/04/21 MAGNESIUM BLD The following approved medication requests have been transmitted electronically. Signed Prescriptions Disp Refills magnesium oxide 200 mg magnesium chew 90 tablet 1 Sig: Take 1 tablet by mouth once daily. Authorizing Provider: Darius BLACK PA-C documented in this encounter [facility] 09-04-2021 Miscellaneous Notes Telephone on 09/04/21 MAGNESIUM BLD The following approved medication requests have been transmitted electronically. Signed Prescriptions Disp Refills magnesium oxide 200 mg magnesium chew 90 tablet 1 Sig: Take 1 tablet by mouth once daily. Authorizing Provider: Darius BLACK PA-C documented in this encounter [facility] 08-20-2021 Instructions Darius Black PA-C - 08/20/2021 3:17 PM EDT BONE MINERAL DENSITY PATIENT INSTRUCTIONS ======= Bone mineral density testing measures the amount of calcium in certain parts of your bones. This information determines how strong your bones are. The test is used to detect osteoporosis, a disease in which the bone's mineral content and density are low, increasing a person's risk of fractures. The lumbar spine (lower back) and the hip are the skeletal sites usually examined. For the test, remember that: 1. You cannot take this test if you are . 2. Eat a normal diet on the day of the test. 3. Take your medications as you normally would. 4. DO NOT take calcium supplements (such as Tums) for 24 hours before the test. 5. On the day of the test, leave valuables (jewelry or credit cards) at home. 6. The test should be performed prior to oral, rectal or IV contrast studies, or at least 7 days after any of these studies. For the test, you may be asked to wear a hospital gown. You will lie on your back, on a padded table, in a comfortable position. Generally, you can resume your usual activities immediately. documented in this encounter [facility] 08-20-2021 History of Present illness Narrative 71 year old female with c/o here for follow up Current concerns: For 3-4 weeks, having a burning at corners and roof of mouth. No rash, erythema, cracks, ulcers. Notes new male friend, was performing oral sex 3-4 months ago. He has no hx of STD but she got worried. Essential hypertension, benign Current meds: Spironalactone 25mg daily HCTZ 25mg daily Losartan 100mg daily Atenolol 50mg 1.5tabs twice a day Patient is compliant with meds Yes Monitors bp at home: No. If yes, readings: Denies side effects: Yes. Chest pain: No. Dyspnea: No. Edema: No. Palpitations: No. Syncope: No. Headache: No. Dizziness: No. Last 3 Encounter BP Readings: Date: BP: 08/20/2021 138/72 03/13/2021 140/72 02/19/2021 132/68 Last 2 Encounter Wt Readings: Date: Wt: 08/20/2021 89 kg (196 lb 3.2 oz) 03/13/2021 83.9 kg (185 lb) Moderate mixed hyperlipidemia not requiring statin therapy Wann cardiac risk >20% in next 10 years Current medication Atorvastatin 20mg daily HS Taking medication consistently No Observing low cholesterol high fiber diet No Muscle aches No Stomach complaints: has diarrhea every day. Last 2 Lipids: Component Latest Ref Rng & Units 11/16/2018 08/14/2020 Cholesterol, Total <200 mg/dL 125 Triglyceride <150 mg/dL 173 (H) HDL Cholesterol >39 mg/dL 41 LDL Cholesterol <100 mg/dL 49 Non HDL Cholesterol <130 mg/dL 84 Fasting Time hrs 11 VLDL Cholesterol <30 mg/dL 35 (H) TC:HDL Ratio <5.10 3.05 LDL:HDL Ratio <2.54 1.20 Total Cholesterol, Nonfasting <200 mg/dL 202 (H) Triglycerides, Nonfasting <150 mg/dL 310 (H) HDL Cholesterol, Nonfasting >39 mg/dL 42 LDL Cholesterol, Nonfasting <100 mg/dL 98 Non HDL Cholesterol, Nonfasting <130 mg/dL 160 (H) VLDL Cholesterol, Nonfasting <30 mg/dL 62 (H) Total Chol/HDL Ratio, Nonfasting <5.10 mg/dL 4.81 LDL/HDL Ratio, Nonfasting <2.54 mg/dL 2.33 Type 2 diabetes mellitus without complication, without long-term current use of insulin (hcc) Current medications: Metformin 500mg 2 tabs twice a day Taking medication as directed consistently? Yes Medical Issues / Complications: hypertension and hyperlipidemia Checking blood sugars at home? Yes. 166 today this morning Watching diet? No Physical Activity: Sedentary Hypoglycemic spells? No Any visual disturbance? No Chest pain? No New numbness, tingling or loss of sensation? No Any recent foot problems, sores or rashes? No Any recent or sudden weight loss? No- some weight gain Change in urination?Yes. If yes: goes all the time, not new Any recent illness? No Last eye exam: up to date. Last foot exam: up to date. HBA1C: Hemoglobin A1C (%) Date Value 08/14/2020 6.9 06/16/2019 6.7 ) CMP: Glucose 220 08/14/2020 BUN 12 08/14/2020 Creatinine 0.59 08/14/2020 Sodium 139 08/14/2020 Potassium 4.5 08/14/2020 Chloride 104 08/14/2020 CO2 24 08/14/2020 Protein, Total 6.8 08/14/2020 Albumin 4.4 08/14/2020 Calcium 9.6 08/14/2020 Alkaline Phosphatase 94 08/14/2020 Bilirubin, Total 0.7 08/14/2020 AST 25 08/14/2020 ALT 18 08/14/2020 Last 2 Encounter Wt Readings: Date: Wt: 08/20/2021 89 kg (196 lb 3.2 oz) 03/13/2021 83.9 kg (185 lb) Adjustment disorder with mixed anxiety and depressed mood Current meds: Fluoxetine 20mg daily trazedone 50mg HS Change in medication No. Currently in counseling? No. Any Medication side effects? No. Sleep disturbance? Not with medication. Racing thoughts? No. Interpersonal/ family conflicts? No. Irritability? No. PHQ-9 01/18/2016 11/04/2017 08/20/2021 Score 14 0 6 SANTY - 7 SCORES 08/20/2021 SANTY-7 Score 4 Gastroesophageal reflux disease without esophagitis Current use of proton pump inhibitor Current medication: Pantoprazole 40mg daily AC. Current symptoms: none. Last Mg level if on PPI chronically: none. Heartburn is controlled: No. Dysphagia: no but coughs a lot after eating, easily inhales a piece of food. Bloody or black stools: No. Bowel changes: No. Last EGD and/or colonoscopy: 04/01/18 normal esophagus, non-bleeding erosive gastropathy. Dr. Gomez 10/01/21 to review spine Skin cancer right ear: uncertain bx HISTORIES FAMILY HISTORY Problem Relation Age of Onset Cancer Mother bladder ca. Stroke Mother Alzheimer's Disease Father Osteoporosis Sister Thyroid Daughter Cancer Brother kidney ca./renal cell Coronary Artery Disease Brother [place], has a bad disc is the same as above Cancer Maternal Grandmother liver ca. Stroke Maternal Aunt PAST MEDICAL HISTORY Diagnosis Date Cardiomyopathy in other diseases classified elsewhere echo 2008-normal EF Complication of anesthesia Diverticulosis of colon (without mention of hemorrhage) Esophageal reflux Gastroesophageal reflux Internal hemorrhoids without mention of complication Mental disorder Myalgia and myositis, unspecified Fibromyalgia (myalgia and myositis) PMH - PAST MEDICAL HISTORY OF pre diabetic Sleep apnea Unspecified essential hypertension Essential hypertension PAST SURGICAL HISTORY Procedure Laterality Date COLONOSCOPY FLX DX W/COLLJ SPEC WHEN PFRMD 1999 Colonoscopy-due 2009 COLONOSCOPY FLX DX W/COLLJ SPEC WHEN PFRMD 01/29/10 CRANIEC TREPHINE BONE FLP BRAIN TUMOR SUPRTENTOR 1998 acoustic neuroma brain surgery DENTAL SURGERY PROCEDURE 04/2010 laser top right teeth EGD 04/01/2018 Dr Miller ESOPHAGOGASTRODUODENOSCOPY TRANSORAL DIAGNOSTIC 05/2003 EGD PAST SURGICAL HISTORY OF right foot surgery, neuroma excised SIGMOIDOSCOPY FLX DX W/COLLJ SPEC BR/WA IF PFRMD 09/01/14 Sigmoidoscopy, flexible Social History Tobacco Use Smoking status: Former Smoker Smokeless tobacco: Never Used Tobacco comment: was a casual smoker. Hasn't smoked since she was 48yrs. Vaping Use Vaping Use: Never used Substance Use Topics Alcohol use: No Drug use: No ACTIVE PROBLEM LIST Essential Hypertension, Benign Insomnia Esophageal Reflux Hyperlipidemia Sleep Apnea Type 2 Diabetes Mellitus Without Complication (Hcc) Spinal Stenosis of Lumbar Region Primary Osteoarthritis of Left Knee Adjustment Disorder With Mixed Anxiety and Depressed Mood Obesity (Bmi 30.0-34.9) Inflammatory Polyarthritis (Hcc) Family History of Ischemic Heart Disease Aortic Valve Sclerosis Asthma With Chronic Obstructive Pulmonary Disease (Copd) (Hcc) Lung Nodule Acquired Deafness of Right Ear Acute Bilateral Low Back Pain With Right-Sided Sciatica Current Outpatient Medications Medication Sig Dispense Refill gabapentin (NEURONTIN) 300 mg capsule Take 1 capsule by mouth three times daily for 90 days. 90 capsule 2 urea (CARMOL) 40 % Apply to affected area twice daily. 198 g 11 spironolactone (ALDACTONE) 25 mg tablet Take 1 tablet by mouth once daily. 90 tablet 3 colestipol (COLESTID) 1 gram tablet Take 1 tablet by mouth once daily. 90 tablet 1 hydroCHLOROthiazide (HYDRODIURIL, ESIDRIX) 25 mg tablet Take 1 tablet by mouth once daily. 90 tablet 1 losartan (COZAAR) 100 mg tablet Take 1 tablet by mouth once daily. 90 tablet 3 metFORMIN (GLUCOPHAGE) 500 mg tablet Take 2 tablets by mouth twice daily with meals. 360 tablet 3 atorvastatin (LIPITOR) 20 mg tablet Take 1 tablet by mouth daily at bedtime. For cholesterol. 90 tablet 1 traZODone (DESYREL) 50 mg tablet Take 1 tablet by mouth daily at bedtime. 90 tablet 1 FLUoxetine (PROZAC) 20 mg capsule TAKE 4 CAPSULES BY MOUTH ONCE DAILY. [address] (PROTONIX) 40 mg tablet Take 1 tablet by mouth twice daily. Take on empty stomach, 1/2 hr before meal. 60 tablet 11 lancets (ONE TOUCH DELICA) 33 gauge USE INSTRUCTED. Test 1-2 times daily. DX: E11.9 Insulin:No 100 Each 3 blood sugar diagnostic (BLOOD GLUCOSE TEST) test strip Test blood sugar(s) 2-3 times daily. Dx: Type 2 DM - Controlled E11.9 Insulin: No 90 Strip 5 blood sugar diagnostic (ONETOUCH VERIO) test strip TEST BLOOD SUGAR(S) 2 TO 3 TIMES DAILY. DX: TYPE 2 DM - CONTROLLED E11.9 INSULIN: NO 100 Strip 11 ONETOUCH DELICA LANCETS 30 gauge misc TEST BLOOD SUGAR 2-3 TIMES DAILY 100 Each 3 atenolol (TENORMIN) 50 mg tablet Take 1.5 tablets by mouth twice daily. 270 tablet 3 No current facility-administered medications for this visit. SPIROMETRY Never done BP CONTROLLED (<130/80) Never done SHINGRIX VACCINE(2 of 3) due on 12/18/2010 DTAP,TDAP,TD(2 - Td or Tdap) due on 01/01/2017 HBA1C due on 02/13/2021 COVID-19 VACCINE(3 - Booster for Moderna series) due on 03/06/2021 ADVANCE DIRECTIVE DISCUSSION Never done URINE ALBUMIN:CREATININE RATIO due on 08/14/2021 LDL CHOLESTEROL due on 08/14/2021 REVIEW OF SYMPTOMS: General: denies fatigue, unusual weight loss or gain, fevers, chills. Energy Level: not much energy. Exercise none. Sleep: hours: 8h, doesn't wake Diet: not watching Any routine health measures: none. Tobacco use: none. Caffeine use: 5 cups a day. ETOH use: 0-1 glasses of wine a week. Marijuana use: none. Illicit drug use: none. Eyes: denies change in vision, glaucoma: no, right eye implant, left eye cataracts. Not often wears glasses. Last eye exam: 1 year. EENT: Deaf right ear. Maybe a little loss in left. denies recurrent sinus infection, unusual nasal drainage, hoarsemess, sore throat, or recurrent sore in mouth or tongue. Cardiovascular: denies chest pain , SOB, palpitation, irregular or racing heart beats, orthopnea, leg swelling, history of rheumatic fever or prior heart conditions Respiratory: denies unusual cough, SOB, wheezing, history of recurrent bronchitis, pneumonia or tuberculosis. Denies day time drowsiness. Denies Snoring. No witnessed sleep apnea. GI: denies difficulty swallowing, nausea, vomiting, change in appetite. No change in bowel habits. Denies constipation, diarrhea, rectal bleeding or hemorrhoids, incontinence. No history of GERD, PUD, jaundice/hepatitis, GB disease, diverticulosis, colorectal cancer, hernias. Kidney/Bladder: Denies frequency, burning. Nocturia x 2-3, incontinence rare. No history of kidney stones, recurrent UTI or kidney infection. Females: No post-menopausal bleeding. Skin: See HPI. denies unusual rashes. No history of skin cancer, bleeding/changing moles, or unusual skin lesions. Neurologic: Denies recurrent DRIVER, change in vision, hearing or smell, tremors, unusual weakness, loss of sensation, or difficulty with balance or gait. No history of epilepsy/convulsions, migraine, head/spinal injuries, or stroke/TIA. Psychiatric: denies unusual worry, moodiness, depression, suicidal ideation or unusual disturbance in relationships. No history of psychiatric illness. Endocrine: denies unusual thirst, hunger, excessive urination, change in skin or hair texture, emotional lability. No history of thryoid, pituitary or hormonal problems. Hematologic: denies unusual bleeding, bruising, or history of anemia or blood transfusion. Denies hx blood clots. Infections: denies risk factors for HIV, hepatitis or history of unusual infection. Immunizations are up to date. Musculoskeletal: Some stiffness in knees, otherwise joints mostly okay. Back pain chronic, low back to right buttock, to thigh. LS spine XR: 02/19/21 compression L2, mild-mod degenerative changes, gr 1 retrolisthesis L2 on L3, Denies recurrent sprain or disruption of joints, debilitating arthritis, gout, or other musculoskeletal disease. Chronic issues with back. EXAM: BP 138/72 Pulse 64 Temp 36.8 C (98.2 F) (Left Tympanic) Ht 164 cm (5' 4.57 ) Wt 89 kg (196 lb 3.2 oz) SpO2 97% BMI 33.09 kg/m Pleasant overweight adult woman in no acute distress. Alert and oriented all spheres. Normal affect and cognition. Speech normal. No deficits to learning or comprehension. Skin warm, dry, pink to lips and nailbeds. Normal turgor. Respirations regular and unlabored. HEENT: NCAT. No scleral icterus or conjunctival injection. TM's clear. Nose and oropharynx free from injection or lesion. No cracks, ulcers, erythema lip angles or palate. Oral membranes moist and pink. Gums appear healthy. No cervical lymph nodes. Thyroid non-tender, no masses, or enlargement. Carotids pulses 2+/4+ without bruits. No JVD with HOB at 30 degrees. Neck supple with mildly restricted ROM. Chest is normal shape. Lungs are clear to all monae with good air exchange through out. HRRR without murmur or gallop. No lifts, heaves, or rubs. Abdomen: active bowel sounds throughout, soft, nontender, no masses or organomegaly. No CVAT. Back: normal curvature, no scoliosis. Extrem: no clubbing or cyanosis. Edema: none. Extremities are warm and pink with prompt capillary refill. Peripheral pulses 2/4+. Normal nails. Feet:Shoes and socks removed, No deformities, ulcers, calluses and sensitive to 10 gm monofilament , breast exams deferred to POWDER LINE REPAIRER. ASSESSMENT/PLAN: 1. Essential hypertension, benign - ICD9: 401.1, ICD10: I10 (primary diagnosis) - suboptimal control - Continue current medication(s) - Recommended regular aerobic exercise. - Recommend home blood pressure monitoring, to bring results in on next visit - Goal of BP <130/80 - HYDROCHLOROTHIAZIDE 25 MG TABLET 2. Moderate mixed hyperlipidemia not requiring statin therapy - ICD9: 272.2, ICD10: E78.2 - good control - Continue current medication. - Encouraged following a low fat, low cholesterol diet. - Discussed the benefits of regular aerobic exercise and weight loss. - COMP METABOLIC PANEL - LIPID PANEL BASIC - COLESTIPOL 1 GRAM TABLET 3. Type 2 diabetes mellitus without complication, without long-term current use of insulin (HCC) - ICD9: 250.00, ICD10: E11.9 Controlled. - Continue current medications - Encouraged regular aerobic exercise and weight loss - CBC - COMP METABOLIC PANEL - LIPID PANEL BASIC - HGB A1C - EX ALB/CREAT RND UR - ATORVASTATIN 20 MG TABLET 4. Adjustment disorder with mixed anxiety and depressed mood - ICD9: 309.28, ICD10: F43.23 Stable on meds 5. Gastroesophageal reflux disease without esophagitis - ICD9: 530.81, ICD10: K21.9 - Discussed lifestyle modifications including losing weight, limiting caffeine, no meals three hours before sleep and head of bed elevation - COMP METABOLIC PANEL - MAGNESIUM BLD 6. Current use of proton pump inhibitor - ICD9: V58.69, ICD10: Z79.899 - MAGNESIUM BLD 7. Wann cardiac risk >20% in next 10 years - ICD9: V49.89, ICD10: Z91.89 Encouraged risk reduction - ATORVASTATIN 20 MG TABLET 8. BMS (burning mouth syndrome) - ICD9: 529.6, ICD10: K14.6 - TRIAMCINOLONE ACETONIDE 0.1 % DENTAL PASTE 9. Need for vaccination - ICD9: V05.9, ICD10: Z23 - TDAP VACCINE AGE 7+ IM 10. Asymptomatic postmenopausal status - ICD9: V49.81, ICD10: Z78.0 - DXA-AXIAL SKELETON 11. Chronic diarrhea - ICD9: 787.91, ICD10: K52.9 - COLESTIPOL 1 GRAM TABLET 12. Gastrointestinal hemorrhage, unspecified gastrointestinal hemorrhage type - ICD9: 578.9, ICD10: K92.2 - PANTOPRAZOLE 40 MG TABLET,DELAYED RELEASE 13. Asthma with chronic obstructive pulmonary disease (COPD) (HCC) - ICD9: 493.20, ICD10: J44.9 Mild persistent Asthma stable No use of medications. Has seen pulm in past. 14. Inflammatory polyarthritis (HCC) - ICD9: 714.9, ICD10: M06.4 Stable, follows with rheum Darius Black PA-C F/u 6 months. Darius Black PA-C documented in this encounter [facility] 08-02-2021 History of Present illness Narrative Last saw Dr. Reece: 05/02/21 Subjective: Patient presents to clinic c/o painful toenails. They state that the nails are especially painful with shoe gear and pressure. Patient states that nails 1-5 b/l are painful. Patient admits to being diabetic. No other pedal complaints at this time. Patient states no change in medications or medical history since last visit. Objective: Patient presents to clinic ambulating in asics Vasc: DP and PT pulses are palpable bilateral. CFT is less than 5 seconds bilateral. Skin temperature is warm to cool proximal to distal bilateral. There is no edema or varicosities noted. Neuro: Protective sensation is intact to the foot and toes when tested with the 5.07 SWM bilateral. Vibratory sensation is decreased at the hallux IPJ bilateral. The hallux is downgoing bilateral. Derm: Nails 1-5 b/l are painful, discolored-yellow, thick, crumbly, dystrophic and with subungal debris. Skin is of normal turgor, texture and hair growth is present bilateral. There are no hyperkeratosis, ulcerations, scars, verruca or other lesions noted. Ortho: Muscle strength is 5/5 for all pedal groups tested. Ankle joint DF is full with the knee extended with no pain or crepitus noted. 1st MPJ ROM is decreased right. Assessment: (B35.1) Onychomycosis (primary encounter diagnosis) (M79.675) Pain in toe of left foot (M79.674) Pain in toe of right foot (E11.42) Diabetic polyneuropathy associated with type 2 diabetes mellitus (HCC) Plan: Patient was seen and evaluated. Nails 1-5 bilateral were debrided in length and thickness. Patient was instructed on the continued importance of diabetic foot care along with proper diet and keeping their blood sugar under control to prevent complications. Patient is to RTC in 3-4 months. Small dryness to left 5th metatarsal lightly debride with 15 blade. No considerable callus or ulceration noted. Mandeep Álvarez DPM Patient presents with: Left Foot - Established Patient, Diabetic Foot Care Right Foot - Established Patient, Diabetic Foot Care documented in this encounter [facility] 08-02-2021 Instructions Mandeep Álvarez - 08/02/2021 1:27 PM EDT Diabetes Foot Care Instructions When you have diabetes, proper foot care is very important. Poor foot care may lead to amputation of a foot or leg. As a person with diabetes, you are more vulnerable to foot problems, because diabetes can damage your nerves and reduce blood flow to your feet. Here are some diabetes foot care tips to follow: Wash and Dry Your Feet Daily Use mild soaps Use warm water Pat your skin dry; do not rub. Thoroughly dry your feet. After washing, use lotion on your feet to prevent cracking. Do not put lotion between your toes. Examine Your Feet Each Day Check the tops and bottoms of your feet. Have someone else look at your feet if you cannot see them. Check for dry, cracked skin. Look for blisters, cuts, scratches, or other sores. Check for redness, increased warmth, or tenderness when touching any area of your feet. Check for ingrown toenails, corns, and calluses. If you get a blister or sore from your shoes, do not pop it. Apply a bandage and wear a different pair of shoes. Take Care of Your Toenails Cut toenails after bathing, when they are soft. Cut toenails straight across and smooth with a nail file. Avoid cutting into the corners of toes. Do not cut cuticles. If you have neuropathy (or decreased sensation in your feet) a cup machine operator should always cut your toenails. Be Careful When Exercising Walk and exercise in comfortable shoes. Do not exercise when you have open sores on your feet. Protect Your Feet With Shoes and Socks Never go barefoot. Always protect your feet by wearing shoes or hard-soled slippers or footwear. Avoid shoes with high heels and pointed toes. Avoid shoes that expose your toes or heels (such as open-toed shoes or sandals). These types of shoes increase your risk for injury and potential infections. Try on new footwear with the type of socks you usually wear. Do not wear new shoes for more than an hour at a time. Change your socks daily. Look and feel inside your shoes before putting them on to make sure there are no foreign objects or rough areas. Avoid tight socks. Wear natural-fiber socks (cotton, wool, or a cotton-wool blend). Wear special shoes if your health care provider recommends them. Wear shoes/boots that will protect your feet from various weather conditions (cold, moisture, etc.). Make sure your shoes fit properly. If you have neuropathy (nerve damage), you may not notice that your shoes are too tight. Perform the footwear test described below. Footwear Test Use this simple test to see if your shoes fit correctly: Stand on a piece of paper. (Make sure you are standing and not sitting, because your foot changes shape when you stand.) Trace the outline of your foot. Trace the outline of your shoe. Compare the tracings: Is the shoe too narrow? Is your foot crammed into the shoe? The shoe should be at least 1/2 inch longer than your longest toe and as wide as your foot. Proper Shoe Choices The following types of shoes are best for people with diabetes Closed toes and heels Leather uppers without a seam inside At least 1/2 inch extra space at the end of your longest toe Inside of shoe should be soft with no rough areas Outer sole should be made of stiff material Shoes should be at least as wide as your feet Tips for Foot Care in Diabetes Don't wait to treat a minor foot problem if you have diabetes. Follow your health care provider's guidelines and first aid guidelines. Report foot injuries and infections to your health care provider immediately. Check water temperature with your elbow, not your foot. Do not use a heating pad on your feet. Do not cross your legs. Do not self-treat your corns, calluses, or other foot problems. Go to your health care provider or cup machine operator to treat these conditions. documented in this encounter [facility] documented as of this encounter (statuses as of 05/08/2022) [facility]2018 History of Past illness Narrative* Problem Noted Date Resolved Date Asthma with chronic obstructive pulmonary diseas e (COPD) 11/04/2017 05/02/2022 Overview: Seeing pulm in [place] Obesity (BMI 35.0-39.9 without comorbidity) 01/0306/16/2019 Marital conflict 05/23/2015 10/07/2016 Pain in left knee 01/30/2015 10/07/2016 Arthritis of knee, degenerative 07/22/2011 10/07/2016 Glucose intolerance (pre-diabetes) 10/19/2010 09/09/2013 Actinic keratosis 08/10/2008 07/04/2014 Inflamed seborrheic keratosis 08/10/2008 Other chronic 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 radiation 08/10/2008 07/04/2014 SOLAR LENGINES///DYSCHROMIA OTHER 08/10/2008 07/04/2014 Myalgia and myositis, unspecified 10/09/2005 10/07/2016 documented as of this encounter (statuses as of 05/28/2022) [facility] History of Past illness Narrative* Problem Noted Date Resolved Date Asthma with chronic obstructive pulmonary diseas e (COPD) 11/04/2017 05/02/2022 Overview: Seeing pulm in [place] Obesity (BMI 35.0-39.9 without comorbidity) 01/0306/16/2019 Marital conflict 05/23/2015 10/07/2016 Pain in left knee 01/30/2015 10/07/2016 Arthritis of knee, degenerative 07/22/2011 10/07/2016 Glucose intolerance (pre-diabetes) 10/19/2010 09/09/2013 Actinic keratosis 08/10/2008 07/04/2014 Inflamed seborrheic keratosis 08/10/2008 Other chronic 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 radiation 08/10/2008 07/04/2014 SOLAR LENGINES///DYSCHROMIA OTHER 08/10/2008 07/04/2014 Myalgia and myositis, unspecified 10/09/2005 10/07/2016 documented as of this encounter (statuses as of 06/05/2022) [facility] History of Past illness Narrative* Problem Noted Date Resolved Date Asthma with chronic obstructive pulmonary diseas e (COPD) 11/04/2017 05/02/2022 Overview: Seeing pulm [place] Obesity (BMI 35.0-39.9 without comorbidity) 01/0306/16/2019 Marital conflict 05/23/2015 10/07/2016 Pain in left knee 01/30/2015 10/07/2016 Arthritis of knee, degenerative 07/22/2011 10/07/2016 Glucose intolerance (pre-diabetes) 10/19/2010 09/09/2013 Actinic keratosis 08/10/2008 07/04/2014 Inflamed seborrheic keratosis 08/10/2008 Other chronic 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 radiation 08/10/2008 07/04/2014 SOLAR LENGINES///DYSCHROMIA OTHER 08/10/2008 07/04/2014 Myalgia and myositis, unspecified 10/09/2005 10/07/2016 documented as of this encounter (statuses as of 07/02/2022) [address]03-2018 History of Past illness Narrative* Problem Noted Date Resolved Date Asthma with chronic obstructive pulmonary diseas e (COPD) 11/04/2017 05/02/2022 Overview: Seeing pulm [place] Obesity (BMI 35.0-39.9 without comorbidity) 01/0306/16/2019 Marital conflict 05/23/2015 10/07/2016 Pain in left knee 01/30/2015 10/07/2016 Arthritis of knee, degenerative 07/22/2011 10/07/2016 Glucose intolerance (pre-diabetes) 10/19/2010 09/09/2013 Actinic keratosis 08/10/2008 07/04/2014 Inflamed seborrheic keratosis 08/10/2008 Other chronic 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 radiation 08/10/2008 07/04/2014 SOLAR LENGINES///DYSCHROMIA OTHER 08/10/2008 07/04/2014 Myalgia and myositis, unspecified 10/09/2005 10/07/2016 documented as of this encounter (statuses as of 07/03/2022) [facility] History of Past illness Narrative* Problem Noted Date Resolved Date Asthma with chronic obstructive pulmonary diseas e (COPD) 11/04/2017 05/02/2022 Overview: Seeing pulm [place] Obesity (BMI 35.0-39.9 without comorbidity) 01/0306/16/2019 Marital conflict 05/23/2015 10/07/2016 Pain in left knee 01/30/2015 10/07/2016 Arthritis of knee, degenerative 07/22/2011 10/07/2016 Glucose intolerance (pre-diabetes) 10/19/2010 09/09/2013 Actinic keratosis 08/10/2008 07/04/2014 Inflamed seborrheic keratosis 08/10/2008 Other chronic 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 radiation 08/10/2008 07/04/2014 SOLAR LENGINES///DYSCHROMIA OTHER 08/10/2008 07/04/2014 Myalgia and myositis, unspecified 10/09/2005 10/07/2016 documented as of this encounter (statuses as of 08/09/2022) [address]-2018 History of Past illness Narrative* Problem Noted Date Resolved Date Asthma with chronic obstructive pulmonary diseas e (COPD) 11/04/2017 05/02/2022 Overview: Seeing pulm in [place] Obesity (BMI 35.0-39.9 without comorbidity) 01/0306/16/2019 Marital conflict 05/23/2015 10/07/2016 Pain in left knee 01/30/2015 10/07/2016 Arthritis of knee, degenerative 07/22/2011 10/07/2016 Glucose intolerance (pre-diabetes) 10/19/2010 09/09/2013 Actinic keratosis 08/10/2008 07/04/2014 Inflamed seborrheic keratosis 08/10/2008 Other chronic 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 radiation 08/10/2008 07/04/2014 SOLAR LENGINES///DYSCHROMIA OTHER 08/10/2008 07/04/2014 Myalgia and myositis, unspecified 10/09/2005 10/07/2016 documented as of this encounter (statuses as of 08/17/2022) [facility] History of Past illness Narrative* Problem Noted Date Resolved Date Asthma with chronic obstructive pulmonary diseas e (COPD) 11/04/2017 05/02/2022 Overview: Seeing pulm in [place] Obesity (BMI 35.0-39.9 without comorbidity) 01/0306/16/2019 Marital conflict 05/23/2015 10/07/2016 Pain in left knee 01/30/2015 10/07/2016 Arthritis of knee, degenerative 07/22/2011 10/07/2016 Glucose intolerance (pre-diabetes) 10/19/2010 09/09/2013 Actinic keratosis 08/10/2008 07/04/2014 Inflamed seborrheic keratosis 08/10/2008 Other chronic 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 radiation 08/10/2008 07/04/2014 SOLAR LENGINES///DYSCHROMIA OTHER 08/10/2008 07/04/2014 Myalgia and myositis, unspecified 10/09/2005 10/07/2016 documented as of this encounter (statuses as of 09/05/2022) [address]03-2018 History of Past illness Narrative* Problem Noted Date Resolved Date Asthma with chronic obstructive pulmonary diseas e (COPD) 11/04/2017 05/02/2022 Overview: Seeing pulm in [place] Obesity (BMI 35.0-39.9 without comorbidity) 01/0306/16/2019 Marital conflict 05/23/2015 10/07/2016 Pain in left knee 01/30/2015 10/07/2016 Arthritis of knee, degenerative 07/22/2011 10/07/2016 Glucose intolerance (pre-diabetes) 10/19/2010 09/09/2013 Actinic keratosis 08/10/2008 07/04/2014 Inflamed seborrheic keratosis 08/10/2008 Other chronic 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 radiation 08/10/2008 07/04/2014 SOLAR LENGINES///DYSCHROMIA OTHER 08/10/2008 07/04/2014 Myalgia and myositis, unspecified 10/09/2005 10/07/2016 documented as of this encounter (statuses as of 09/14/2022) [facility] History of Past illness Narrative* Problem Noted Date Resolved Date Asthma with chronic obstructive pulmonary diseas e (COPD) 11/04/2017 05/02/2022 Overview: Seeing pulm in [place] Obesity (BMI 35.0-39.9 without comorbidity) 01/0306/16/2019 Marital conflict 05/23/2015 10/07/2016 Pain in left knee 01/30/2015 10/07/2016 Arthritis of knee, degenerative 07/22/2011 10/07/2016 Glucose intolerance (pre-diabetes) 10/19/2010 09/09/2013 Actinic keratosis 08/10/2008 07/04/2014 Inflamed seborrheic keratosis 08/10/2008 Other chronic 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 radiation 08/10/2008 07/04/2014 SOLAR LENGINES///DYSCHROMIA OTHER 08/10/2008 07/04/2014 Myalgia and myositis, unspecified 10/09/2005 10/07/2016 documented as of this encounter (statuses as of 09/17/2022) [address]03-2018 History of Past illness Narrative* Problem Noted Date Diagnosed Date Resolved Date Asthma with chronic obstruct radha pulmonary disease (COPD) 11/04/2017 05/02/2022 Overview: Seeing pulm in [place] Obesity (BMI 35.0-39.9 without comorbidity) 01/13/2017 06/16/2019 Marital conflict 05/23/2015 10/07/2016 Pain in left knee 01/30/2015 10/07/2016 Arthritis of knee, degenerative 07/22/2011 10/07/2016 Glucose intolerance (pre-diabetes) 10/19/2010 09/09/2013 Actinic keratosis 08/10/2008 07/04/2014 Inflamed seborrheic keratosis 08/10/2008 07/04/2014 Other chronic 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 radiation 08/10/2008 07/04/2014 SOLAR LENGINES///DYSCHROMIA OTHER 08/10/2008 07/04/2014 Myalgia and myositis, unspecified 10/09/2005 10/07/2016 documented as of this encounter (statuses as of 12/04/2022) [facility] History of Past illness Narrative* Problem Noted Date Diagnosed Date Resolved Date Asthma with chronic obstruct radha pulmonary disease (COPD) 11/04/2017 05/02/2022 Overview: Seeing pulm in [place] Obesity (BMI 35.0-39.9 without comorbidity) 01/13/2017 06/16/2019 Marital conflict 05/23/2015 10/07/2016 Pain in left knee 01/30/2015 10/07/2016 Arthritis of knee, degenerative 07/22/2011 10/07/2016 Glucose intolerance (pre-diabetes) 10/19/2010 09/09/2013 Actinic keratosis 08/10/2008 07/04/2014 Inflamed seborrheic keratosis 08/10/2008 07/04/2014 Other chronic 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 radiation 08/10/2008 07/04/2014 SOLAR LENGINES///DYSCHROMIA OTHER 08/10/2008 07/04/2014 Myalgia and myositis, unspecified 10/09/2005 10/07/2016 documented as of this encounter (statuses as of 12/06/2022) [facility] History of Past illness Narrative* Problem Noted Date Diagnosed Date Resolved Date Asthma with chronic obstruct radha pulmonary disease (COPD) 11/04/2017 05/02/2022 Overview: Seeing pulm in [place] Obesity (BMI 35.0-39.9 without comorbidity) 01/13/2017 06/16/2019 Marital conflict 05/23/2015 10/07/2016 Pain in left knee 01/30/2015 10/07/2016 Arthritis of knee, degenerative 07/22/2011 10/07/2016 Glucose intolerance (pre-diabetes) 10/19/2010 09/09/2013 Actinic keratosis 08/10/2008 07/04/2014 Inflamed seborrheic keratosis 08/10/2008 07/04/2014 Other chronic 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 radiation 08/10/2008 07/04/2014 SOLAR LENGINES///DYSCHROMIA OTHER 08/10/2008 07/04/2014 Myalgia and myositis, unspecified 10/09/2005 10/07/2016 documented as of this encounter (statuses as of 12/27/2022) [facility] History of Past illness Narrative* Problem Noted Date Diagnosed Date Resolved Date Asthma with chronic obstruct radha pulmonary disease (COPD) 11/04/2017 05/02/2022 Overview: Seeing pulm in [place] Obesity (BMI 35.0-39.9 without comorbidity) 01/13/2017 06/16/2019 Marital conflict 05/23/2015 10/07/2016 Pain in left knee 01/30/2015 10/07/2016 Arthritis of knee, degenerative 07/22/2011 10/07/2016 Glucose intolerance (pre-diabetes) 10/19/2010 09/09/2013 Actinic keratosis 08/10/2008 07/04/2014 Inflamed seborrheic keratosis 08/10/2008 07/04/2014 Other chronic 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 radiation 08/10/2008 07/04/2014 SOLAR LENGINES///DYSCHROMIA OTHER 08/10/2008 07/04/2014 Myalgia and myositis, unspecified 10/09/2005 10/07/2016 documented as of this encounter (statuses as of 01/22/2023) [facility] History of Past illness Narrative* Problem Noted Date Diagnosed Date Resolved Date Asthma with chronic obstruct radha pulmonary disease (COPD) 11/04/2017 05/02/2022 Overview: Seeing pulm in [place] Obesity (BMI 35.0-39.9 without comorbidity) 01/13/2017 06/16/2019 Marital conflict 05/23/2015 10/07/2016 Pain in left knee 01/30/2015 10/07/2016 Arthritis of knee, degenerative 07/22/2011 10/07/2016 Glucose intolerance (pre-diabetes) 10/19/2010 09/09/2013 Actinic keratosis 08/10/2008 07/04/2014 Inflamed seborrheic keratosis 08/10/2008 07/04/2014 Other chronic 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 radiation 08/10/2008 07/04/2014 SOLAR LENGINES///DYSCHROMIA OTHER 08/10/2008 07/04/2014 Myalgia and myositis, unspecified 10/09/2005 10/07/2016 documented as of this encounter (statuses as of 02/18/2023) [facility] History of Past illness Narrative* Problem Noted Date Diagnosed Date Resolved Date Asthma with chronic obstruct radha pulmonary disease (COPD) 11/04/2017 05/02/2022 Overview: Seeing pulm in [place] Obesity (BMI 35.0-39.9 without comorbidity) 01/13/2017 06/16/2019 Marital conflict 05/23/2015 10/07/2016 Pain in left knee 01/30/2015 10/07/2016 Arthritis of knee, degenerative 07/22/2011 10/07/2016 Glucose intolerance (pre-diabetes) 10/19/2010 09/09/2013 Actinic keratosis 08/10/2008 07/04/2014 Inflamed seborrheic keratosis 08/10/2008 07/04/2014 Other chronic 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 radiation 08/10/2008 07/04/2014 SOLAR LENGINES///DYSCHROMIA OTHER 08/10/2008 07/04/2014 Myalgia and myositis, unspecified 10/09/2005 10/07/2016 documented as of this encounter (statuses as of 02/24/2023) [facility] History of Past illness Narrative* Problem Noted Date Diagnosed Date Resolved Date Asthma with chronic obstruct radha pulmonary disease (COPD) 11/04/2017 05/02/2022 Overview: Seeing pulm in [place] Obesity (BMI 35.0-39.9 without comorbidity) 01/13/2017 06/16/2019 Marital conflict 05/23/2015 10/07/2016 Pain in left knee 01/30/2015 10/07/2016 Arthritis of knee, degenerative 07/22/2011 10/07/2016 Glucose intolerance (pre-diabetes) 10/19/2010 09/09/2013 Actinic keratosis 08/10/2008 07/04/2014 Inflamed seborrheic keratosis 08/10/2008 07/04/2014 Other chronic 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 radiation 08/10/2008 07/04/2014 SOLAR LENGINES///DYSCHROMIA OTHER 08/10/2008 07/04/2014 Myalgia and myositis, unspecified 10/09/2005 10/07/2016 documented as of this encounter (statuses as of 03/04/2023) [facility] History of Past illness Narrative* Problem Noted Date Diagnosed Date Resolved Date Asthma with chronic obstruct radha pulmonary disease (COPD) 11/04/2017 05/02/2022 Overview: Seeing pulm in [place] Obesity (BMI 35.0-39.9 without comorbidity) 01/13/2017 06/16/2019 Marital conflict 05/23/2015 10/07/2016 Pain in left knee 01/30/2015 10/07/2016 Arthritis of knee, degenerative 07/22/2011 10/07/2016 Glucose intolerance (pre-diabetes) 10/19/2010 09/09/2013 Actinic keratosis 08/10/2008 07/04/2014 Inflamed seborrheic keratosis 08/10/2008 07/04/2014 Other chronic 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 radiation 08/10/2008 07/04/2014 SOLAR LENGINES///DYSCHROMIA OTHER 08/10/2008 07/04/2014 Myalgia and myositis, unspecified 10/09/2005 10/07/2016 documented as of this encounter (statuses as of 03/09/2023) [facility] History of Past illness Narrative* Problem Noted Date Diagnosed Date Resolved Date Asthma with chronic obstruct radha pulmonary disease (COPD) 11/04/2017 05/02/2022 Overview: Seeing pulm in [place] Obesity (BMI 35.0-39.9 without comorbidity) 01/13/2017 06/16/2019 Marital conflict 05/23/2015 10/07/2016 Pain in left knee 01/30/2015 10/07/2016 Arthritis of knee, degenerative 07/22/2011 10/07/2016 Glucose intolerance (pre-diabetes) 10/19/2010 09/09/2013 Actinic keratosis 08/10/2008 07/04/2014 Inflamed seborrheic keratosis 08/10/2008 07/04/2014 Other chronic 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 radiation 08/10/2008 07/04/2014 SOLAR LENGINES///DYSCHROMIA OTHER 08/10/2008 07/04/2014 Myalgia and myositis, unspecified 10/09/2005 10/07/2016 documented as of this encounter (statuses as of 04/03/2023) [facility] History of Past illness Narrative* Problem Noted Date Resolved Date Obesity (BMI 35.0-39.9 without comorbidity) 01/0306/16/2019 Marital conflict 05/23/2015 10/07/2016 Pain in left knee 01/30/2015 10/07/2016 Arthritis of knee, degenerative 07/22/2011 10/07/2016 Glucose intolerance (pre-diabetes) 10/19/2010 09/09/2013 Actinic keratosis 08/10/2008 07/04/2014 Inflamed seborrheic keratosis 08/10/2008 Other chronic 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 radiation 08/10/2008 07/04/2014 SOLAR LENGINES///DYSCHROMIA OTHER 08/10/2008 07/04/2014 Myalgia and myositis, unspecified 10/09/2005 10/07/2016 documented as of this encounter (statuses as of 08/02/2021) [facility] History of Past illness Narrative* Problem Noted Date Resolved Date Obesity (BMI 35.0-39.9 without comorbidity) 01/0306/16/2019 Marital conflict 05/23/2015 10/07/2016 Pain in left knee 01/30/2015 10/07/2016 Arthritis of knee, degenerative 07/22/2011 10/07/2016 Glucose intolerance (pre-diabetes) 10/19/2010 09/09/2013 Actinic keratosis 08/10/2008 07/04/2014 Inflamed seborrheic keratosis 08/10/2008 Other chronic 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 radiation 08/10/2008 07/04/2014 SOLAR LENGINES///DYSCHROMIA OTHER 08/10/2008 07/04/2014 Myalgia and myositis, unspecified 10/09/2005 10/07/2016 documented as of this encounter (statuses as of 08/21/2021) [facility] History of Past illness Narrative* Problem Noted Date Resolved Date Obesity (BMI 35.0-39.9 without comorbidity) 01/0306/16/2019 Marital conflict 05/23/2015 10/07/2016 Pain in left knee 01/30/2015 10/07/2016 Arthritis of knee, degenerative 07/22/2011 10/07/2016 Glucose intolerance (pre-diabetes) 10/19/2010 09/09/2013 Actinic keratosis 08/10/2008 07/04/2014 Inflamed seborrheic keratosis 08/10/2008 Other chronic 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 radiation 08/10/2008 07/04/2014 SOLAR LENGINES///DYSCHROMIA OTHER 08/10/2008 07/04/2014 Myalgia and myositis, unspecified 10/09/2005 10/07/2016 documented as of this encounter (statuses as of 09/04/2021) [facility] History of Past illness Narrative* Problem Noted Date Resolved Date Obesity (BMI 35.0-39.9 without comorbidity) 01/0306/16/2019 Marital conflict 05/23/2015 10/07/2016 Pain in left knee 01/30/2015 10/07/2016 Arthritis of knee, degenerative 07/22/2011 10/07/2016 Glucose intolerance (pre-diabetes) 10/19/2010 09/09/2013 Actinic keratosis 08/10/2008 07/04/2014 Inflamed seborrheic keratosis 08/10/2008 Other chronic 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 radiation 08/10/2008 07/04/2014 SOLAR LENGINES///DYSCHROMIA OTHER 08/10/2008 07/04/2014 Myalgia and myositis, unspecified 10/09/2005 10/07/2016 documented as of this encounter (statuses as of 09/05/2021) [facility] History of Past illness Narrative* Problem Noted Date Resolved Date Obesity (BMI 35.0-39.9 without comorbidity) 01/0306/16/2019 Marital conflict 05/23/2015 10/07/2016 Pain in left knee 01/30/2015 10/07/2016 Arthritis of knee, degenerative 07/22/2011 10/07/2016 Glucose intolerance (pre-diabetes) 10/19/2010 09/09/2013 Actinic keratosis 08/10/2008 07/04/2014 Inflamed seborrheic keratosis 08/10/2008 Other chronic 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 radiation 08/10/2008 07/04/2014 SOLAR LENGINES///DYSCHROMIA OTHER 08/10/2008 07/04/2014 Myalgia and myositis, unspecified 10/09/2005 10/07/2016 documented as of this encounter (statuses as of 09/08/2021) [facility] History of Past illness Narrative* Problem Noted Date Resolved Date Obesity (BMI 35.0-39.9 without comorbidity) 01/0306/16/2019 Marital conflict 05/23/2015 10/07/2016 Pain in left knee 01/30/2015 10/07/2016 Arthritis of knee, degenerative 07/22/2011 10/07/2016 Glucose intolerance (pre-diabetes) 10/19/2010 09/09/2013 Actinic keratosis 08/10/2008 07/04/2014 Inflamed seborrheic keratosis 08/10/2008 Other chronic 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 radiation 08/10/2008 07/04/2014 SOLAR LENGINES///DYSCHROMIA OTHER 08/10/2008 07/04/2014 Myalgia and myositis, unspecified 10/09/2005 10/07/2016 documented as of this encounter (statuses as of 09/13/2021) [facility] History of Past illness Narrative* Problem Noted Date Resolved Date Obesity (BMI 35.0-39.9 without comorbidity) 01/0306/16/2019 Marital conflict 05/23/2015 10/07/2016 Pain in left knee 01/30/2015 10/07/2016 Arthritis of knee, degenerative 07/22/2011 10/07/2016 Glucose intolerance (pre-diabetes) 10/19/2010 09/09/2013 Actinic keratosis 08/10/2008 07/04/2014 Inflamed seborrheic keratosis 08/10/2008 Other chronic 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 radiation 08/10/2008 07/04/2014 SOLAR LENGINES///DYSCHROMIA OTHER 08/10/2008 07/04/2014 Myalgia and myositis, unspecified 10/09/2005 10/07/2016 documented as of this encounter (statuses as of 09/18/2021) [facility] History of Past illness Narrative* Problem Noted Date Resolved Date Obesity (BMI 35.0-39.9 without comorbidity) 01/0306/16/2019 Marital conflict 05/23/2015 10/07/2016 Pain in left knee 01/30/2015 10/07/2016 Arthritis of knee, degenerative 07/22/2011 10/07/2016 Glucose intolerance (pre-diabetes) 10/19/2010 09/09/2013 Actinic keratosis 08/10/2008 07/04/2014 Inflamed seborrheic keratosis 08/10/2008 Other chronic 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 radiation 08/10/2008 07/04/2014 SOLAR LENGINES///DYSCHROMIA OTHER 08/10/2008 07/04/2014 Myalgia and myositis, unspecified 10/09/2005 10/07/2016 documented as of this encounter (statuses as of 10/16/2021) [facility] of Past illness Narrative* Problem Noted Date Resolved Date Obesity (BMI 35.0-39.9 without comorbidity) 01/0306/16/2019 Marital conflict 05/23/2015 10/07/2016 Pain in left knee 01/30/2015 10/07/2016 Arthritis of knee, degenerative 07/22/2011 10/07/2016 Glucose intolerance (pre-diabetes) 10/19/2010 09/09/2013 Actinic keratosis 08/10/2008 07/04/2014 Inflamed seborrheic keratosis 08/10/2008 Other chronic 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 radiation 08/10/2008 07/04/2014 SOLAR LENGINES///DYSCHROMIA OTHER 08/10/2008 07/04/2014 Myalgia and myositis, unspecified 10/09/2005 10/07/2016 documented as of this encounter (statuses as of 11/01/2021) [facility] Past illness Narrative* Problem Noted Date Resolved Date Obesity (BMI 35.0-39.9 without comorbidity) 01/0306/16/2019 Marital conflict 05/23/2015 10/07/2016 Pain in left knee 01/30/2015 10/07/2016 Arthritis of knee, degenerative 07/22/2011 10/07/2016 Glucose intolerance (pre-diabetes) 10/19/2010 09/09/2013 Actinic keratosis 08/10/2008 07/04/2014 Inflamed seborrheic keratosis 08/10/2008 Other chronic 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 radiation 08/10/2008 07/04/2014 SOLAR LENGINES///DYSCHROMIA OTHER 08/10/2008 07/04/2014 Myalgia and myositis, unspecified 10/09/2005 10/07/2016 documented as of this encounter (statuses as of 11/21/2021) [facility] of Past illness Narrative* Problem Noted Date Resolved Date Obesity (BMI 35.0-39.9 without comorbidity) 01/0306/16/2019 Marital conflict 05/23/2015 10/07/2016 Pain in left knee 01/30/2015 10/07/2016 Arthritis of knee, degenerative 07/22/2011 10/07/2016 Glucose intolerance (pre-diabetes) 10/19/2010 09/09/2013 Actinic keratosis 08/10/2008 07/04/2014 Inflamed seborrheic keratosis 08/10/2008 Other chronic 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 radiation 08/10/2008 07/04/2014 SOLAR LENGINES///DYSCHROMIA OTHER 08/10/2008 07/04/2014 Myalgia and myositis, unspecified 10/09/2005 10/07/2016 documented as of this encounter (statuses as of 11/26/2021) [facility] Past illness Narrative* Problem Noted Date Resolved Date Obesity (BMI 35.0-39.9 without comorbidity) 01/0306/16/2019 Marital conflict 05/23/2015 10/07/2016 Pain in left knee 01/30/2015 10/07/2016 Arthritis of knee, degenerative 07/22/2011 10/07/2016 Glucose intolerance (pre-diabetes) 10/19/2010 09/09/2013 Actinic keratosis 08/10/2008 07/04/2014 Inflamed seborrheic keratosis 08/10/2008 Other chronic 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 radiation 08/10/2008 07/04/2014 SOLAR LENGINES///DYSCHROMIA OTHER 08/10/2008 07/04/2014 Myalgia and myositis, unspecified 10/09/2005 10/07/2016 documented as of this encounter (statuses as of 11/27/2021) [facility] Past illness Narrative* Problem Noted Date Resolved Date Obesity (BMI 35.0-39.9 without comorbidity) 01/0306/16/2019 Marital conflict 05/23/2015 10/07/2016 Pain in left knee 01/30/2015 10/07/2016 Arthritis of knee, degenerative 07/22/2011 10/07/2016 Glucose intolerance (pre-diabetes) 10/19/2010 09/09/2013 Actinic keratosis 08/10/2008 07/04/2014 Inflamed seborrheic keratosis 08/10/2008 Other chronic 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 radiation 08/10/2008 07/04/2014 SOLAR LENGINES///DYSCHROMIA OTHER 08/10/2008 07/04/2014 Myalgia and myositis, unspecified 10/09/2005 10/07/2016 documented as of this encounter (statuses as of 11/28/2021) [facility] Past illness Narrative* Problem Noted Date Resolved Date Obesity (BMI 35.0-39.9 without comorbidity) 01/0306/16/2019 Marital conflict 05/23/2015 10/07/2016 Pain in left knee 01/30/2015 10/07/2016 Arthritis of knee, degenerative 07/22/2011 10/07/2016 Glucose intolerance (pre-diabetes) 10/19/2010 09/09/2013 Actinic keratosis 08/10/2008 07/04/2014 Inflamed seborrheic keratosis 08/10/2008 Other chronic 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 radiation 08/10/2008 07/04/2014 SOLAR LENGINES///DYSCHROMIA OTHER 08/10/2008 07/04/2014 Myalgia and myositis, unspecified 10/09/2005 10/07/2016 documented as of this encounter (statuses as of 11/28/2021) [facility] Narrative* Problem Noted Date Resolved Date Obesity (BMI 35.0-39.9 without comorbidity) 01/0306/16/2019 Marital conflict 05/23/2015 10/07/2016 Pain in left knee 01/30/2015 10/07/2016 Arthritis of knee, degenerative 07/22/2011 10/07/2016 Glucose intolerance (pre-diabetes) 10/19/2010 09/09/2013 Actinic keratosis 08/10/2008 07/04/2014 Inflamed seborrheic keratosis 08/10/2008 Other chronic 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 radiation 08/10/2008 07/04/2014 SOLAR LENGINES///DYSCHROMIA OTHER 08/10/2008 07/04/2014 Myalgia and myositis, unspecified 10/09/2005 10/07/2016 documented as of this encounter (statuses as of 11/29/2021) [facility] Past [facility] Narrative* Problem Noted Date Resolved Date Obesity (BMI 35.0-39.9 without comorbidity) 01/0306/16/2019 Marital conflict 05/23/2015 10/07/2016 Pain in left knee 01/30/2015 10/07/2016 Arthritis of knee, degenerative 07/22/2011 10/07/2016 Glucose intolerance (pre-diabetes) 10/19/2010 09/09/2013 Actinic keratosis 08/10/2008 07/04/2014 Inflamed seborrheic keratosis 08/10/2008 Other chronic 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 radiation 08/10/2008 07/04/2014 SOLAR LENGINES///DYSCHROMIA OTHER 08/10/2008 07/04/2014 Myalgia and myositis, unspecified 10/09/2005 10/07/2016 documented as of this encounter (statuses as of 11/30/2021) [facility] Narrative* Problem Noted Date Resolved Date Obesity (BMI 35.0-39.9 without comorbidity) 01/0306/16/2019 Marital conflict 05/23/2015 10/07/2016 Pain in left knee 01/30/2015 10/07/2016 Arthritis of knee, degenerative 07/22/2011 10/07/2016 Glucose intolerance (pre-diabetes) 10/19/2010 09/09/2013 Actinic keratosis 08/10/2008 07/04/2014 Inflamed seborrheic keratosis 08/10/2008 Other chronic 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 radiation 08/10/2008 07/04/2014 SOLAR LENGINES///DYSCHROMIA OTHER 08/10/2008 07/04/2014 Myalgia and myositis, unspecified 10/09/2005 10/07/2016 documented as of this encounter (statuses as of 11/30/2021) [facility] Past [facility] Narrative* Problem Noted Date Resolved Date Obesity (BMI 35.0-39.9 without comorbidity) 01/0306/16/2019 Marital conflict 05/23/2015 10/07/2016 Pain in left knee 01/30/2015 10/07/2016 Arthritis of knee, degenerative 07/22/2011 10/07/2016 Glucose intolerance (pre-diabetes) 10/19/2010 09/09/2013 Actinic keratosis 08/10/2008 07/04/2014 Inflamed seborrheic keratosis 08/10/2008 Other chronic 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 radiation 08/10/2008 07/04/2014 SOLAR LENGINES///DYSCHROMIA OTHER 08/10/2008 07/04/2014 Myalgia and myositis, unspecified 10/09/2005 10/07/2016 documented as of this encounter (statuses as of 12/01/2021) [facility] Past [facility] Narrative* Problem Noted Date Resolved Date Obesity (BMI 35.0-39.9 without comorbidity) 01/0306/16/2019 Marital conflict 05/23/2015 10/07/2016 Pain in left knee 01/30/2015 10/07/2016 Arthritis of knee, degenerative 07/22/2011 10/07/2016 Glucose intolerance (pre-diabetes) 10/19/2010 09/09/2013 Actinic keratosis 08/10/2008 07/04/2014 Inflamed seborrheic keratosis 08/10/2008 Other chronic 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 radiation 08/10/2008 07/04/2014 SOLAR LENGINES///DYSCHROMIA OTHER 08/10/2008 07/04/2014 Myalgia and myositis, unspecified 10/09/2005 10/07/2016 documented as of this encounter (statuses as of 12/03/2021) [facility] Past [facility] Narrative* Problem Noted Date Resolved Date Obesity (BMI 35.0-39.9 without comorbidity) 01/0306/16/2019 Marital conflict 05/23/2015 10/07/2016 Pain in left knee 01/30/2015 10/07/2016 Arthritis of knee, degenerative 07/22/2011 10/07/2016 Glucose intolerance (pre-diabetes) 10/19/2010 09/09/2013 Actinic keratosis 08/10/2008 07/04/2014 Inflamed seborrheic keratosis 08/10/2008 Other chronic 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 radiation 08/10/2008 07/04/2014 SOLAR LENGINES///DYSCHROMIA OTHER 08/10/2008 07/04/2014 Myalgia and myositis, unspecified 10/09/2005 10/07/2016 documented as of this encounter (statuses as of 12/03/2021) [facility] Narrative* Problem Noted Date Resolved Date Obesity (BMI 35.0-39.9 without comorbidity) 01/0306/16/2019 Marital conflict 05/23/2015 10/07/2016 Pain in left knee 01/30/2015 10/07/2016 Arthritis of knee, degenerative 07/22/2011 10/07/2016 Glucose intolerance (pre-diabetes) 10/19/2010 09/09/2013 Actinic keratosis 08/10/2008 07/04/2014 Inflamed seborrheic keratosis 08/10/2008 Other chronic 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 radiation 08/10/2008 07/04/2014 SOLAR LENGINES///DYSCHROMIA OTHER 08/10/2008 07/04/2014 Myalgia and myositis, unspecified 10/09/2005 10/07/2016 documented as of this encounter (statuses as of 12/10/2021) [facility] History of Past illness Narrative* Problem Noted Date Resolved Date Obesity (BMI 35.0-39.9 without comorbidity) 01/0306/16/2019 Marital conflict 05/23/2015 10/07/2016 Pain in left knee 01/30/2015 10/07/2016 Arthritis of knee, degenerative 07/22/2011 10/07/2016 Glucose intolerance (pre-diabetes) 10/19/2010 09/09/2013 Actinic keratosis 08/10/2008 07/04/2014 Inflamed seborrheic keratosis 08/10/2008 Other chronic 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 radiation 08/10/2008 07/04/2014 SOLAR LENGINES///DYSCHROMIA OTHER 08/10/2008 07/04/2014 Myalgia and myositis, unspecified 10/09/2005 10/07/2016 documented as of this encounter (statuses as of 12/11/2021) [facility] History of Past illness Narrative* Problem Noted Date Resolved Date Obesity (BMI 35.0-39.9 without comorbidity) 01/0306/16/2019 Marital conflict 05/23/2015 10/07/2016 Pain in left knee 01/30/2015 10/07/2016 Arthritis of knee, degenerative 07/22/2011 10/07/2016 Glucose intolerance (pre-diabetes) 10/19/2010 09/09/2013 Actinic keratosis 08/10/2008 07/04/2014 Inflamed seborrheic keratosis 08/10/2008 Other chronic 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 radiation 08/10/2008 07/04/2014 SOLAR LENGINES///DYSCHROMIA OTHER 08/10/2008 07/04/2014 Myalgia and myositis, unspecified 10/09/2005 10/07/2016 documented as of this encounter (statuses as of 12/26/2021) [facility] History of Past illness Narrative* Problem Noted Date Resolved Date Obesity (BMI 35.0-39.9 without comorbidity) 01/0306/16/2019 Marital conflict 05/23/2015 10/07/2016 Pain in left knee 01/30/2015 10/07/2016 Arthritis of knee, degenerative 07/22/2011 10/07/2016 Glucose intolerance (pre-diabetes) 10/19/2010 09/09/2013 Actinic keratosis 08/10/2008 07/04/2014 Inflamed seborrheic keratosis 08/10/2008 Other chronic 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 radiation 08/10/2008 07/04/2014 SOLAR LENGINES///DYSCHROMIA OTHER 08/10/2008 07/04/2014 Myalgia and myositis, unspecified 10/09/2005 10/07/2016 documented as of this encounter (statuses as of 01/02/2022) [facility] of Past illness Narrative* Problem Noted Date Resolved Date Obesity (BMI 35.0-39.9 without comorbidity) 01/0306/16/2019 Marital conflict 05/23/2015 10/07/2016 Pain in left knee 01/30/2015 10/07/2016 Arthritis of knee, degenerative 07/22/2011 10/07/2016 Glucose intolerance (pre-diabetes) 10/19/2010 09/09/2013 Actinic keratosis 08/10/2008 07/04/2014 Inflamed seborrheic keratosis 08/10/2008 Other chronic 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 radiation 08/10/2008 07/04/2014 SOLAR LENGINES///DYSCHROMIA OTHER 08/10/2008 07/04/2014 Myalgia and myositis, unspecified 10/09/2005 10/07/2016 documented as of this encounter (statuses as of 2022) [facility] of Past illness Narrative* Problem Noted Date Resolved Date Obesity (BMI 35.0-39.9 without comorbidity) 01/0306/16/2019 Marital conflict 05/23/2015 10/07/2016 Pain in left knee 01/30/2015 10/07/2016 Arthritis of knee, degenerative 07/22/2011 10/07/2016 Glucose intolerance (pre-diabetes) 10/19/2010 09/09/2013 Actinic keratosis 08/10/2008 07/04/2014 Inflamed seborrheic keratosis 08/10/2008 Other chronic 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 radiation 08/10/2008 07/04/2014 SOLAR LENGINES///DYSCHROMIA OTHER 08/10/2008 07/04/2014 Myalgia and myositis, unspecified 10/09/2005 10/07/2016 documented as of this encounter (statuses as of 01/13/2022) [facility] Narrative* Problem Noted Date Resolved Date Obesity (BMI 35.0-39.9 without comorbidity) 01/0306/16/2019 Marital conflict 05/23/2015 10/07/2016 Pain in left knee 01/30/2015 10/07/2016 Arthritis of knee, degenerative 07/22/2011 10/07/2016 Glucose intolerance (pre-diabetes) 10/19/2010 09/09/2013 Actinic keratosis 08/10/2008 07/04/2014 Inflamed seborrheic keratosis 08/10/2008 Other chronic 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 radiation 08/10/2008 07/04/2014 SOLAR LENGINES///DYSCHROMIA OTHER 08/10/2008 07/04/2014 Myalgia and myositis, unspecified 10/09/2005 10/07/2016 documented as of this encounter (statuses as of 01/15/2022) [facility] Past illness Narrative* Problem Noted Date Resolved Date Obesity (BMI 35.0-39.9 without comorbidity) 01/0306/16/2019 Marital conflict 05/23/2015 10/07/2016 Pain in left knee 01/30/2015 10/07/2016 Arthritis of knee, degenerative 07/22/2011 10/07/2016 Glucose intolerance (pre-diabetes) 10/19/2010 09/09/2013 Actinic keratosis 08/10/2008 07/04/2014 Inflamed seborrheic keratosis 08/10/2008 Other chronic 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 radiation 08/10/2008 07/04/2014 SOLAR LENGINES///DYSCHROMIA OTHER 08/10/2008 07/04/2014 Myalgia and myositis, unspecified 10/09/2005 10/07/2016 documented as of this encounter (statuses as of 01/15/2022) [facility] illness Narrative* Problem Noted Date Resolved Date Obesity (BMI 35.0-39.9 without comorbidity) 01/0306/16/2019 Marital conflict 05/23/2015 10/07/2016 Pain in left knee 01/30/2015 10/07/2016 Arthritis of knee, degenerative 07/22/2011 10/07/2016 Glucose intolerance (pre-diabetes) 10/19/2010 09/09/2013 Actinic keratosis 08/10/2008 07/04/2014 Inflamed seborrheic keratosis 08/10/2008 Other chronic 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 radiation 08/10/2008 07/04/2014 SOLAR LENGINES///DYSCHROMIA OTHER 08/10/2008 07/04/2014 Myalgia and myositis, unspecified 10/09/2005 10/07/2016 documented as of this encounter (statuses as of 01/29/2022) [facility] illness Narrative* Problem Noted Date Resolved Date Obesity (BMI 35.0-39.9 without comorbidity) 01/0306/16/2019 Marital conflict 05/23/2015 10/07/2016 Pain in left knee 01/30/2015 10/07/2016 Arthritis of knee, degenerative 07/22/2011 10/07/2016 Glucose intolerance (pre-diabetes) 10/19/2010 09/09/2013 Actinic keratosis 08/10/2008 07/04/2014 Inflamed seborrheic keratosis 08/10/2008 Other chronic 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 radiation 08/10/2008 07/04/2014 SOLAR LENGINES///DYSCHROMIA OTHER 08/10/2008 07/04/2014 Myalgia and myositis, unspecified 10/09/2005 10/07/2016 documented as of this encounter (statuses as of 02/07/2022) [facility] Past illness Narrative* Problem Noted Date Resolved Date Obesity (BMI 35.0-39.9 without comorbidity) 01/0306/16/2019 Marital conflict 05/23/2015 10/07/2016 Pain in left knee 01/30/2015 10/07/2016 Arthritis of knee, degenerative 07/22/2011 10/07/2016 Glucose intolerance (pre-diabetes) 10/19/2010 09/09/2013 Actinic keratosis 08/10/2008 07/04/2014 Inflamed seborrheic keratosis 08/10/2008 Other chronic 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 radiation 08/10/2008 07/04/2014 SOLAR LENGINES///DYSCHROMIA OTHER 08/10/2008 07/04/2014 Myalgia and myositis, unspecified 10/09/2005 10/07/2016 documented as of this encounter (statuses as of 02/08/2022) [facility] illness Narrative* Problem Noted Date Resolved Date Obesity (BMI 35.0-39.9 without comorbidity) 01/0306/16/2019 Marital conflict 05/23/2015 10/07/2016 Pain in left knee 01/30/2015 10/07/2016 Arthritis of knee, degenerative 07/22/2011 10/07/2016 Glucose intolerance (pre-diabetes) 10/19/2010 09/09/2013 Actinic keratosis 08/10/2008 07/04/2014 Inflamed seborrheic keratosis 08/10/2008 Other chronic 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 radiation 08/10/2008 07/04/2014 SOLAR LENGINES///DYSCHROMIA OTHER 08/10/2008 07/04/2014 Myalgia and myositis, unspecified 10/09/2005 10/07/2016 documented as of this encounter (statuses as of 02/20/2022) [facility] Onychomycosis- Primary Dermatophytosis of nail Pain in toe of left foot Pain in limb Pain in toe of right foot Pain in limb Diabetic polyneuropathy associated with type 2 diabetes mellitus (HCC) Hyperkeratosis Acquired keratoderma [facility] Diagnosis Essential hypertension, benign- Primary Moderate mixed hyperlipidemia not requiring statin therapy Type 2 diabetes mellitus without complication, without long-term current use of insulin (HCC) Adjustment disorder with mixed anxiety and depressed mood Gastroesophageal reflux disease without esophagitis Esophageal reflux Current use of proton pump inhibitor Encounter for long-term (current) use of other medications Wann cardiac risk >20% in next 10 years Other specified conditions influencing health status BMS (burning mouth syndrome) Glossodynia Need for vaccination Need for prophylactic vaccination and inoculation against unspecified single disease Asymptomatic postmenopausal status Chronic diarrhea Diarrhea Gastrointestinal hemorrhage, unspecified gastrointestinal hemorrhage type Asthma with chronic obstructive pulmonary disease (COPD) (HCC) Chronic obstructive asthma, unspecified Inflammatory polyarthritis (HCC) Unspecified inflammatory polyarthropathy [facility] Diagnosis Hypomagnesemia- Primary Disorders of magnesium metabolism [facility] Diagnosis Asymptomatic postmenopausal status [facility] Diagnosis Onychomycosis- Primary Dermatophytosis of nail Pain in toe of left foot Pain in limb Pain in toe of right foot Pain in limb Diabetic polyneuropathy associated with type 2 diabetes mellitus (HCC) [facility] Essential hypertension, benign- Primary Family history of ischemic heart disease Hyperlipidemia, unspecified hyperlipidemia type Lung nodule Solitary pulmonary nodule Asthma with chronic obstructive pulmonary disease (COPD) (HCC) Chronic obstructive asthma, unspecified Sleep apnea, unspecified type Type 2 diabetes mellitus without complication, without long-term current use of insulin (HCC) Inflammatory polyarthritis (HCC) Unspecified inflammatory polyarthropathy Pericardial effusion Unspecified disease of pericardium SOB (shortness of breath) Shortness of breath Fatigue, unspecified type [facility] Diagnosis Hypomagnesemia- Primary Disorders of magnesium metabolism Lung nodules Other nonspecific abnormal finding of lung field [facility] Diagnosis Elevated brain natriuretic peptide (BNP) level Other nonspecific findings on examination of blood SOB (shortness of breath) Shortness of breath [facility] Diagnosis Elevated brain natriuretic peptide (BNP) level- Primary Other nonspecific findings on examination of blood Edema, unspecified type Pericardial effusion Unspecified disease of pericardium [facility] Diagnosis Edema, unspecified type- Primary OAB (overactive bladder) Hypertonicity of bladder Elevated brain natriuretic peptide (BNP) level Other nonspecific findings on examination of blood Lung nodules Other nonspecific abnormal finding of lung field Hypomagnesemia Disorders of magnesium metabolism Pericardial effusion Unspecified disease of pericardium [facility] Diagnosis OAB (overactive bladder) Hypertonicity of bladder [facility] Diagnosis Lung nodules Other nonspecific abnormal finding of lung field [facility] Diagnosis OAB (overactive bladder) Hypertonicity of bladder [facility] Diagnosis Gastrointestinal hemorrhage, unspecified gastrointestinal hemorrhage type Moderate mixed hyperlipidemia not requiring statin therapy Chronic diarrhea Diarrhea [facility] Diagnosis Aortic valve sclerosis- Primary Aortic valve disorders [facility] Diagnosis Pericardial effusion- Primary Unspecified disease of pericardium Family history of ischemic heart disease Primary hypertension Unspecified essential hypertension Mixed hyperlipidemia Chronic diastolic CHF (congestive heart failure) (HCC) Chronic diastolic heart failure Obesity (BMI 30.0-34.9) Obesity, unspecified [facility] Diagnosis Essential hypertension, benign [facility] Diagnosis SOB (shortness of breath)- Primary Shortness of breath Chronic diastolic CHF (congestive heart failure) (HCC) Chronic diastolic heart failure Essential hypertension, benign Type 2 diabetes mellitus without complication, without long-term current use of insulin (HCC) Aortic valve sclerosis Aortic valve disorders Pericardial effusion Unspecified disease of pericardium Urge incontinence [facility] Diagnosis Family history of ischemic heart disease Pericardial effusion Unspecified disease of pericardium Primary hypertension Unspecified essential hypertension [facility] Diagnosis Small airways disease- Primary Other diseases of lung, not elsewhere classified Class 1 obesity due to excess calories without serious comorbidity with body mass index (BMI) of 31.0 to 31.9 in adult [facility] Diagnosis Wellness examination- Primary Chronic diastolic CHF (congestive heart failure) (HCC) Chronic diastolic heart failure Aortic valve sclerosis Aortic valve disorders Pericardial effusion Unspecified disease of pericardium Hypertensive heart disease with chronic diastolic congestive heart failure (HCC) Essential hypertension, benign Hyperlipidemia, unspecified hyperlipidemia type Lung nodule Solitary pulmonary nodule Asthma with chronic obstructive pulmonary disease (COPD) (HCC) Chronic obstructive asthma, unspecified Type 2 diabetes mellitus without complication, without long-term current use of insulin (HCC) Gastroesophageal reflux disease without esophagitis Esophageal reflux Adjustment disorder with mixed anxiety and depressed mood Sleep apnea, unspecified type Primary osteoarthritis of left knee Primary localized osteoarthrosis, lower leg Obesity (BMI 30.0-34.9) Obesity, unspecified Spinal stenosis of lumbar region, unspecified whether neurogenic claudication present Inflammatory polyarthritis (HCC) Unspecified inflammatory polyarthropathy Acquired deafness of right ear Need for influenza vaccination Need for prophylactic vaccination and inoculation against influenza Hypomagnesemia Disorders of magnesium metabolism Encounter for screening mammogram for malignant neoplasm of breast Other screening mammogram OAB (overactive bladder) Hypertonicity of bladder [facility] Diagnosis Onychomycosis- Primary Dermatophytosis of nail Pain in toe of left foot Pain in limb Pain in toe of right foot Pain in limb Diabetic polyneuropathy associated with type 2 diabetes mellitus (HCC) Hyperkeratosis Acquired keratoderma [facility] Diagnosis Small airways disease- Primary Other diseases of lung, not elsewhere classified Class 1 obesity due to excess calories with body mass index (BMI) of 30.0 to 30.9 in adult, unspecified whether serious comorbidity present [facility] Diagnosis Onychomycosis- Primary Dermatophytosis of nail Pain in toe of left foot Pain in limb Pain in toe of right foot Pain in limb Diabetic polyneuropathy associated with type 2 diabetes mellitus (HCC) Hyperkeratosis Acquired keratoderma [facility] Diagnosis OAB (overactive bladder)- Primary Hypertonicity of bladder Hypomagnesemia Disorders of magnesium metabolism [facility] Diagnosis Hypertensive heart disease with chronic diastolic congestive heart failure (HCC)- Primary Chronic diastolic CHF (congestive heart failure) (HCC) Chronic diastolic heart failure Aortic valve sclerosis Aortic valve disorders Pericardial effusion Unspecified disease of pericardium Essential hypertension, benign Hyperlipidemia, unspecified hyperlipidemia type Lung nodule Solitary pulmonary nodule Sleep apnea, unspecified type Type 2 diabetes mellitus without complication, without long-term current use of insulin (HCC) Gastroesophageal reflux disease without esophagitis Esophageal reflux Obesity (BMI 30.0-34.9) Obesity, unspecified Adjustment disorder with mixed anxiety and depressed mood Insomnia, unspecified type Spinal stenosis of lumbar region, unspecified whether neurogenic claudication present Primary osteoarthritis of left knee Primary localized osteoarthrosis, lower leg Inflammatory polyarthritis (HCC) Unspecified inflammatory polyarthropathy Need for COVID-19 vaccine Urge incontinence [facility] Diagnosis Essential hypertension, benign [facility] Diagnosis Gastrointestinal hemorrhage, unspecified gastrointestinal hemorrhage type Type 2 diabetes mellitus without complication, without long-term current use of insulin (HCC) Wann cardiac risk >20% in next 10 years Other specified conditions influencing health status [facility] Diagnosis Moderate mixed hyperlipidemia not requiring statin therapy Chronic diarrhea Diarrhea Essential hypertension, benign [facility] Diagnosis Type 2 diabetes mellitus without complication, without long-term current use of insulin (HCC) [facility] Diagnosis Onychomycosis- Primary Dermatophytosis of nail Pain in toe of left foot Pain in limb Pain in toe of right foot Pain in limb Diabetic polyneuropathy associated with type 2 diabetes mellitus (HCC) documented in this encounter [facility]* Diagnosis Hypertensive heart disease with chronic diastolic congestive heart failure (HCC)- Primary Chronic diastolic CHF (congestive heart failure) (HCC) Chronic diastolic heart failure Aortic valve sclerosis Aortic valve disorders Pericardial effusion Unspecified disease of pericardium Hyperlipidemia, unspecified hyperlipidemia type Sleep apnea, unspecified type Type 2 diabetes mellitus without complication, without long-term current use of insulin (HCC) Obesity (BMI 30.0-34.9) Obesity, unspecified Gastroesophageal reflux disease without esophagitis Esophageal reflux Acute bilateral low back pain with right-sided sciatica Inflammatory polyarthritis (HCC) Unspecified inflammatory polyarthropathy Spinal stenosis of lumbar region, unspecified whether neurogenic claudication present Adjustment disorder with mixed anxiety and depressed mood Insomnia, unspecified type Small airways disease Other diseases of lung, not elsewhere classified [facility] Diagnosis Encounter for screening mammogram for malignant neoplasm of breast Other screening mammogram documented in this encounter [facility] for referral (narrative)* Outpatient Procedure (Routine) - Authorized Specialty Diagnoses / Procedures Referred By Mark t Referred To [facility] Diagnoses Aortic valve sclerosis Procedures ECG COMPLETE ECG ROUTINE ECG W/LEAST 12 LDS W/I&R Peyton Holman APRN.[employer] [address] [place] [address] [facility] [address] [place] [address] Referral ID Status Reason Start Date Expiration Date Visits Requested Visits Authorized [id number] Authorized Auto-Generat ed Referral 12/03/2021 12/03/2022 1 1 [facility] for referral (narrative)* Outpatient Procedure (Routine) - Authorized Specialty Diagnoses / Procedures [facility] Diagnoses Family history of ischemic heart disease Pericardial effusion Primary hypertension Procedures ECHO ECHO TTHRC R-T 2D W/WOM-MODE COMPL SPEC&COLR D Peyton Holman APRN.CNP [address] [place] [address] [facility] [address] [place] [address] Referral ID Status Reason Start Date Expiration Date Visits Requested Visits Authorized [id number] Authorized Auto-Generat ed Referral 01/10/2022 12/10/2022 1 1 [facility] for referral (narrative)* Diagnostic Procedure Only (Routine) - Authorized Specialty Diagnoses / Procedures [facility] Referred To Contact [facility] Diagnoses SOB (shortness of breath) Procedures NM CARDIAC PERF STRESS/PHARM MYOCARDIAL SPECT MULTIPLE STUDIES Rhett Reece MD [address] [place] [address] [facility] [address] [id number] Referral ID Status Reason Start Date Expiration Date Visits Requested Visits Authorized [id number] Authorized Auto-Generat ed Referral 01/02/2022 02/01/2023 1 1 * Outpatient Procedure (Routine) - Authorized Specialty Diagnoses / Procedures [facility] Referred To Contact [facility] Diagnoses SOB (shortness of breath) Procedures ECG COMPLETE ECG ROUTINE ECG W/LEAST 12 LDS W/I&R Rhett Reece MD [address] [place] [address] [facility] [address] [place] [id number] Referral ID Status Reason Start Date Expiration Date Visits Requested Visits Authorized [id number] Authorized Auto-Generat ed Referral 01/02/2022 01/02/2023 1 1 [facility] for referral (narrative)* Outpatient Procedure (Routine) - Closed Specialty Diagnoses / Procedures Referred By Contac t Referred To Contact [facility] Diagnoses Asthma, unspecified asthma severity, unspecified whether complicated, unspecified whether persistent Procedures NITRIC OXIDE, EXHALED NITRIC OXIDE GAS DETERMINATION Demetrice Dunlap MD [address] [facility] [place] [address] [address] Referral ID Status Reason Start Date Expiration Date V isits Requested Visits Authorized [id number] Closed Auto-Generate d Referral 01/29/2022 02/28/2023 1 1 * Outpatient Procedure (Routine) - Closed Specialty Diagnoses / Procedures Referred By Contac t Referred To Contact [facility] Diagnoses Asthma, unspecified asthma severity, unspecified whether complicated, unspecified whether persistent Procedures SPIROMETRY WITH DILATOR IF OBSTRUCTED BRNCDILAT RSPSE SPMTRY PRE&POST-BRNCDILAT ADMN Demetrice Dunlap MD [address] [place] [address] [address] Referral ID Status Reason Start Date Expiration Date V isits Requested Visits Authorized [id number] Closed Auto-Generate d Referral 01/29/2022 02/28/2023 1 1 [facility] for referral (narrative)* Diagnostic Procedure Only (Routine) - Authorized Specialty Diagnoses / Procedures Referred By Mark mcdonald Referred To Contact [facility] Diagnoses Encounter for screening mammogram for malignant neoplasm of breast Procedures ANA SCREENING W OSKAR SCREENING DIGITAL BREAST TOMOSYNTHESIS BI SCREENING MAMMOGRAPHY BI 2-VIEW BREAST INC Darius Andres PA-C [address] [place] [address] [facility] [address] [place] [address] Referral ID Status Reason Start Date Expiration Date Visits Requested Visits Authorized [id number] Authorized Auto-Generat ed Referral 02/07/2022 03/09/2023 1 1 [facility] for referral (narrative)* Diagnostic Procedure Only (Routine) - Closed Specialty Diagnoses / Procedures Referred By Mark mcdonald Referred To Contact [facility] IMAGING Diagnoses Encounter for screening mammogram for malignant neoplasm of breast Procedures ANA SCREENING W OSKAR SCREENING DIGITAL BREAST TOMOSYNTHESIS BI SCREENING MAMMOGRAPHY BI 2-VIEW BREAST INC Darius Andres PA-C [address] [place] [address] [facility] [address] [place] [address] Referral ID Status Reason Start Date Expiration Date V isits Requested Visits Authorized [id number] Closed Auto-Generate d Referral 02/07/2022 03/09/2023 1 1 [facility] for visit Narrative* Outpatient Procedure (Routine) - Closed Specialty Diagnoses / Procedures Referred By Mark mcdonald Referred To Contact [facility] Diagnoses Family history of ischemic heart disease Pericardial effusion Primary hypertension Procedures ECHO ECHO TTHRC R-T 2D W/WOM-MODE COMPL SPEC&COLR D Peyton Holman, MANAGER OF [employer] [address] [place] [address] [facility] [place] [address] [place] [address] Referral ID Status Reason Start Date Expiration Date V isits Requested Visits Authorized [id number] Closed Auto-Generate d Referral 01/10/2022 12/10/2022 1 1 [facility] for visit Narrative* Diagnostic Procedure Only (Routine) - Closed Specialty Diagnoses / Procedures Referred By Amandaac t Referred To Contact MOLECULAR & FUNCTIONAL IMAGING Diagnoses SOB (shortness of breath) Procedures NM CARDIAC PERF STRESS/PHARM MYOCARDIAL SPECT MULTIPLE STUDIES Rhett Reece MD [address] [place] [address] Molecular & Functional Imaging [address] [place] [address] Referral ID Status Reason Start Date Expiration Date V isits Requested Visits Authorized [id number] Closed Auto-Generate d Referral 01/02/2022 02/01/2023 1 1 [facility] for visit Narrative* Diagnostic Procedure Only (Routine) - Closed Specialty Diagnoses / Procedures Referred By Mark t Referred To Contact [facility] Diagnoses Encounter for screening mammogram for malignant neoplasm of breast Procedures ANA SCREENING W OSKAR SCREENING DIGITAL BREAST TOMOSYNTHESIS BI SCREENING MAMMOGRAPHY BI 2-VIEW BREAST INC CAD Darius Black PA-C [address] [place] [address] Br Imaging [address] [place] [address] Referral ID Status Reason Start Date Expiration Date V isits Requested Visits Authorized [id number] Closed Auto-Generate d Referral 02/07/2022 03/09/2023 1 1 [facility] Reason for Referral Specialty Diagnoses / Procedures Referred By Mark t Referred To Contact Pulmonary and Critical Care Medicine Diagnoses Asthma with chronic obstructive pulmonary disease (COPD) (HCC) Procedures CONSULT TO PULM/CRITICAL CARE OFFICE/OUTPATIENT [facility] 60-74 MINUTES Rhett Reece MD [address] [place] [address] Referral ID Status Reason Start Date Expiration Date Visits Requested Visits Authorized [id number] Pending Review PCP Requested Referral 11/21/2021 11/21/2022 1 1 Specialty Diagnoses / Procedures Referred By Mark t Referred To Contact Cardiology Diagnoses Family history of ischemic heart disease Pericardial effusion Procedures CONSULT TO CARDIOLOGY OFFICE/OUTPATIENT [facility] 60-74 MINUTES Rhett Reece MD [address] [place] [address] Referral ID Status Reason Start Date Expiration Date Visits Requested Visits Authorized [id number] Pending Review PCP Requested Referral 11/21/2021 11/21/2022 1 1 Specialty Diagnoses / Procedures Referred By Contac t Referred To Contact CT IMAGING Diagnoses Lung nodules Procedures CT CHEST WO IVCON DIAGNOSTIC COMPUTED TOMOGRAPHY THORAX W/O CNTRST Rhett Reece MD [address] [place] [address] Ct Imaging Referral ID Status Reason Start Date Expiration Date Visits Requested Visits Authorized [id number] Authorized Auto-Generat ed Referral 11/26/2021 12/26/2022 1 1 Specialty Diagnoses / Procedures Referred By Contac t Referred To Contact Cardiology Diagnoses Elevated brain natriuretic peptide (BNP) level Edema, unspecified type Pericardial effusion Procedures CONSULT TO CARDIOLOGY OFFICE/OUTPATIENT [facility] 60-74 MINUTES Rhett Reece MD [address] [place] [address] Referral ID Status Reason Start Date Expiration Date Visits Requested Visits Authorized [id number] Pending Review PCP Requested Referral 11/27/2021 11/27/2022 1 1 Referral ID Status Reason Start Date Expiration Date V isits Requested Visits Authorized [id number] Closed Auto-Generate d Referral 11/26/2021 12/26/2022 1 1 Specialty Diagnoses / Procedures Referred By Contac t Referred To Contact Diagnoses OAB (overactive bladder) Procedures CONSULT TO FEMALE UROLOGY/URO GYNECOLOGY OFFICE/OUTPATIENT [facility] 60-74 MINUTES Darius Black PA-C [address] [place] [address] Referral ID Status Reason Start Date Expiration Date Visits Requested Visits Authorized [id number] Pending Review PCP Requested Referral 06/03/2022 06/03/2023 1 1 Specialty Diagnoses / Procedures Referred By Contac t Referred To Contact Orthopedics Diagnoses Primary osteoarthritis of left knee Procedures CONSULT TO ORTHOPAEDICS OFFICE/OUTPATIENT [facility] 60-74 MINUTES Darius Black PA-C [address] [place] [address] Referral ID Status Reason Start Date Expiration Date Visits Requested Visits Authorized [id number] Pending Review PCP Requested Referral 08/08/2022 08/08/2023 1 1 Specialty Diagnoses / Procedures Referred By Contsarita t Referred To Contact Diagnoses Urge incontinence Procedures CONSULT TO FEMALE UROLOGY/URO GYNECOLOGY OFFICE/OUTPATIENT NEW HIGH MDM 60-74 MINUTES Darius Black PA-C [address] [place] [address] Referral ID Status Reason Start Date Expiration Date Visits Requested Visits Authorized [id number] Pending Review PCP Requested Referral 08/08/2022 08/08/2023 1 1 Summary Purpose Family History No Family History Records Found Advance Directives No Advanced Directives Records Found Additional Source Comments Source Comments (unrecognize d section and content) In the event this informatio n is protected by the Federal Confidentiality of Alcohol and Drug Abuse Patient Records regulations: The Federal rules restrict any use of the information to criminally investigate or prosecute any alcohol or drug abuse patient.[facility] the event this information is protected by the Federal Confidentiality of Alcohol and Drug Abuse Patient Records regulations: The Federal rules restrict any use of the information to criminally investigate or prosecute any alcohol or drug abuse patient.[facility] the event this information is protected by the Federal Confidentiality of Alcohol and Drug Abuse Patient Records regulations: The Federal rules restrict any use of the information to criminally investigate or prosecute any alcohol or drug abuse patient.[facility] the event this information is protected by the Federal Confidentiality of Alcohol and Drug Abuse Patient Records regulations: The Federal rules restrict any use of the information to criminally investigate or prosecute any alcohol or drug abuse patient.[facility]In the event this information is protected by the Federal Confidentiality of Alcohol and Drug Abuse Patient Records regulations: The Federal rules restrict any use of the information to criminally investigate or prosecute any alcohol or drug abuse patient.[facility] the event this information is protected by the Federal Confidentiality of Alcohol and Drug Abuse Patient Records regulations: The Federal rules restrict any use of the information to criminally investigate or prosecute any alcohol or drug abuse patient.[facility]In the event this information is protected by the Federal Confidentiality of Alcohol and Drug Abuse Patient Records regulations: The Federal rules restrict any use of the information to criminally investigate or prosecute any alcohol or drug abuse patient.[facility] the event this information is protected by the Federal Confidentiality of Alcohol and Drug Abuse Patient Records regulations: The Federal rules restrict any use of the information to criminally investigate or prosecute any alcohol or drug abuse patient.[facility]In the event this information is protected by the Federal Confidentiality of Alcohol and Drug Abuse Patient Records regulations: The Federal rules restrict any use of the information to criminally investigate or prosecute any alcohol or drug abuse patient.[facility]In the event this information is protected by the Federal Confidentiality of Alcohol and Drug Abuse Patient Records regulations: The Federal rules restrict any use of the information to criminally investigate or prosecute any alcohol or drug abuse patient.[facility] HospitalIn the event this information is protected by the Federal Confidentiality of Alcohol and Drug Abuse Patient Records regulations: The Federal rules restrict any use of the information to criminally investigate or prosecute any alcohol or drug abuse patient.[facility] HospitalIn the event this information is protected by the Federal Confidentiality of Alcohol and Drug Abuse Patient Records regulations: The Federal rules restrict any use of the information to criminally investigate or prosecute any alcohol or drug abuse patient.[facility] HospitalIn the event this information is protected by the Federal Confidentiality of Alcohol and Drug Abuse Patient Records regulations: The Federal rules restrict any use of the information to criminally investigate or prosecute any alcohol or drug abuse patient.[facility] HospitalIn the event this information is protected by the Federal Confidentiality of Alcohol and Drug Abuse Patient Records regulations: The Federal rules restrict any use of the information to criminally investigate or prosecute any alcohol or drug abuse patient.[facility] HospitalIn the event this information is protected by the Federal Confidentiality of Alcohol and Drug Abuse Patient Records regulations: The Federal rules restrict any use of the information to criminally investigate or prosecute any alcohol or drug abuse patient.[facility] HospitalIn the event this information is protected by the Federal Confidentiality of Alcohol and Drug Abuse Patient Records regulations: The Federal rules restrict any use of the information to criminally investigate or prosecute any alcohol or drug abuse patient.[facility] HospitalIn the event this information is protected by the Federal Confidentiality of Alcohol and Drug Abuse Patient Records regulations: The Federal rules restrict any use of the information to criminally investigate or prosecute any alcohol or drug abuse patient.[facility] HospitalIn the event this information is protected by the Federal Confidentiality of Alcohol and Drug Abuse Patient Records regulations: The Federal rules restrict any use of the information to criminally investigate or prosecute any alcohol or drug abuse patient.[facility] HospitalIn the event this information is protected by the Federal Confidentiality of Alcohol and Drug Abuse Patient Records regulations: The Federal rules restrict any use of the information to criminally investigate or prosecute any alcohol or drug abuse patient.[facility] HospitalIn the event this information is protected by the Federal Confidentiality of Alcohol and Drug Abuse Patient Records regulations: The Federal rules restrict any use of the information to criminally investigate or prosecute any alcohol or drug abuse patient.[facility] HospitalIn the event this information is protected by the Federal Confidentiality of Alcohol and Drug Abuse Patient Records regulations: The Federal rules restrict any use of the information to criminally investigate or prosecute any alcohol or drug abuse patient.[facility] HospitalIn the event this information is protected by the Federal Confidentiality of Alcohol and Drug Abuse Patient Records regulations: The Federal rules restrict any use of the information to criminally investigate or prosecute any alcohol or drug abuse patient.[facility] HospitalIn the event this information is protected by the Federal Confidentiality of Alcohol and Drug Abuse Patient Records regulations: The Federal rules restrict any use of the information to criminally investigate or prosecute any alcohol or drug abuse patient.[facility] HospitalIn the event this information is protected by the Federal Confidentiality of Alcohol and Drug Abuse Patient Records regulations: The Federal rules restrict any use of the information to criminally investigate or prosecute any alcohol or drug abuse patient.[facility] HospitalIn the event this information is protected by the Federal Confidentiality of Alcohol and Drug Abuse Patient Records regulations: The Federal rules restrict any use of the information to criminally investigate or prosecute any alcohol or drug abuse patient.[facility] HospitalIn the event this information is protected by the Federal Confidentiality of Alcohol and Drug Abuse Patient Records regulations: The Federal rules restrict any use of the information to criminally investigate or prosecute any alcohol or drug abuse patient.[facility] HospitalIn the event this information is protected by the Federal Confidentiality of Alcohol and Drug Abuse Patient Records regulations: The Federal rules restrict any use of the information to criminally investigate or prosecute any alcohol or drug abuse patient.[facility] HospitalIn the event this information is protected by the Federal Confidentiality of Alcohol and Drug Abuse Patient Records regulations: The Federal rules restrict any use of the information to criminally investigate or prosecute any alcohol or drug abuse patient.[facility] HospitalIn the event this information is protected by the Federal Confidentiality of Alcohol and Drug Abuse Patient Records regulations: The Federal rules restrict any use of the information to criminally investigate or prosecute any alcohol or drug abuse patient.[facility] HospitalIn the event this information is protected by the Federal Confidentiality of Alcohol and Drug Abuse Patient Records regulations: The Federal rules restrict any use of the information to criminally investigate or prosecute any alcohol or drug abuse patient.[facility] HospitalIn the event this information is protected by the Federal Confidentiality of Alcohol and Drug Abuse Patient Records regulations: The Federal rules restrict any use of the information to criminally investigate or prosecute any alcohol or drug abuse patient.[facility] HospitalIn the event this information is protected by the Federal Confidentiality of Alcohol and Drug Abuse Patient Records regulations: The Federal rules restrict any use of the information to criminally investigate or prosecute any alcohol or drug abuse patient.[facility] HospitalIn the event this information is protected by the Federal Confidentiality of Alcohol and Drug Abuse Patient Records regulations: The Federal rules restrict any use of the information to criminally investigate or prosecute any alcohol or drug abuse patient.[facility] HospitalIn the event this information is protected by the Federal Confidentiality of Alcohol and Drug Abuse Patient Records regulations: The Federal rules restrict any use of the information to criminally investigate or prosecute any alcohol or drug abuse patient.[facility] HospitalIn the event this information is protected by the Federal Confidentiality of Alcohol and Drug Abuse Patient Records regulations: The Federal rules restrict any use of the information to criminally investigate or prosecute any alcohol or drug abuse patient.[facility] HospitalIn the event this information is protected by the Federal Confidentiality of Alcohol and Drug Abuse Patient Records regulations: The Federal rules restrict any use of the information to criminally investigate or prosecute any alcohol or drug abuse patient.[facility] HospitalIn the event this information is protected by the Federal Confidentiality of Alcohol and Drug Abuse Patient Records regulations: The Federal rules restrict any use of the information to criminally investigate or prosecute any alcohol or drug abuse patient.[facility] HospitalIn the event this information is protected by the Federal Confidentiality of Alcohol and Drug Abuse Patient Records regulations: The Federal rules restrict any use of the information to criminally investigate or prosecute any alcohol or drug abuse patient.[facility] HospitalIn the event this information is protected by the Federal Confidentiality of Alcohol and Drug Abuse Patient Records regulations: The Federal rules restrict any use of the information to criminally investigate or prosecute any alcohol or drug abuse patient.[facility]In the event this information is protected by the Federal Confidentiality of Alcohol and Drug Abuse Patient Records regulations: The Federal rules restrict any use of the information to criminally investigate or prosecute any alcohol or drug abuse patient.[facility]In the event this information is protected by the Federal Confidentiality of Alcohol and Drug Abuse Patient Records regulations: The Federal rules restrict any use of the information to criminally investigate or prosecute any alcohol or drug abuse patient.[facility] HospitalIn the event this information is protected by the Federal Confidentiality of Alcohol and Drug Abuse Patient Records regulations: The Federal rules restrict any use of the information to criminally investigate or prosecute any alcohol or drug abuse patient.[facility] HospitalIn the event this information is protected by the Federal Confidentiality of Alcohol and Drug Abuse Patient Records regulations: The Federal rules restrict any use of the information to criminally investigate or prosecute any alcohol or drug abuse patient.[facility] HospitalIn the event this information is protected by the Federal Confidentiality of Alcohol and Drug Abuse Patient Records regulations: The Federal rules restrict any use of the information to criminally investigate or prosecute any alcohol or drug abuse patient.[facility] HospitalIn the event this information is protected by the Federal Confidentiality of Alcohol and Drug Abuse Patient Records regulations: The Federal rules restrict any use of the information to criminally investigate or prosecute any alcohol or drug abuse patient.[facility] HospitalIn the event this information is protected by the Federal Confidentiality of Alcohol and Drug Abuse Patient Records regulations: The Federal rules restrict any use of the information to criminally investigate or prosecute any alcohol or drug abuse patient.[facility] HospitalIn the event this information is protected by the Federal Confidentiality of Alcohol and Drug Abuse Patient Records regulations: The Federal rules restrict any use of the information to criminally investigate or prosecute any alcohol or drug abuse patient.[facility] HospitalIn the event this information is protected by the Federal Confidentiality of Alcohol and Drug Abuse Patient Records regulations: The Federal rules restrict any use of the information to criminally investigate or prosecute any alcohol or drug abuse patient.[facility] HospitalIn the event this information is protected by the Federal Confidentiality of Alcohol and Drug Abuse Patient Records regulations: The Federal rules restrict any use of the information to criminally investigate or prosecute any alcohol or drug abuse patient.[facility] HospitalIn the event this information is protected by the Federal Confidentiality of Alcohol and Drug Abuse Patient Records regulations: The Federal rules restrict any use of the information to criminally investigate or prosecute any alcohol or drug abuse patient.[facility] HospitalIn the event this information is protected by the Federal Confidentiality of Alcohol and Drug Abuse Patient Records regulations: The Federal rules restrict any use of the information to criminally investigate or prosecute any alcohol or drug abuse patient.[facility] HospitalIn the event this information is protected by the Federal Confidentiality of Alcohol and Drug Abuse Patient Records regulations: The Federal rules restrict any use of the information to criminally investigate or prosecute any alcohol or drug abuse patient.[facility] HospitalIn the event this information is protected by the Federal Confidentiality of Alcohol and Drug Abuse Patient Records regulations: The Federal rules restrict any use of the information to criminally investigate or prosecute any alcohol or drug abuse patient.[facility] Reason for Visit (unrecogniz ed section and content) Reason Comments Physical Reason Comments Results Reason Onset Date Comments Refill Request 09/07/2021 Reason Onset Date Comments Population Health Navigation Outreach 09/18/2021 [employer] Care Gaps Reason Comments Orders Reason Comments Fatigue Weight Problem feels like gaining w eight does have some swelling in ankles Reason Comments Results Reason Comments fax request Reason Comments Follow Up edema in legs and fe et Reason Comments Refill Request Reason Comments Radiology CT Specialty Diagnoses / Procedures Referred By Contac t Referred To Contact CT IMAGING Diagnoses Lung nodules Procedures CT CHEST WO IVCON DIAGNOSTIC COMPUTED TOMOGRAPHY THORAX W/O CNTRST Rhett Reece MD [address] [place] [address] Ct Imaging Referral ID Status Reason Start Date Expiration Date V isits Requested Visits Authorized [id number] Closed Auto-Generate d Referral 11/26/2021 12/26/2022 1 1 Reason Comments Prescription Refills Reason Onset Date Comments Refill Request 12/03/2021 Reason Comments New Patient Specialty Diagnoses / Procedures Referred By Contac t Referred To Contact Cardiology Diagnoses Family history of ischemic heart disease Pericardial effusion Procedures CONSULT TO CARDIOLOGY OFFICE/OUTPATIENT NEW HIGH MDM 60-74 MINUTES Rhett Reece MD [address] [place] [address] Referral ID Status Reason Start Date Expiration Date Visits Requested Visits Authorized [id number] Pending Review PCP Requested Referral 11/21/2021 11/21/2022 1 1 Reason Comments Follow Up Reason Comments Radiology NM Specialty Diagnoses / Procedures Referred By Contac t Referred To Contact MOLECULAR & FUNCTIONAL IMAGING Diagnoses SOB (shortness of breath) Procedures NM CARDIAC PERF STRESS/PHARM MYOCARDIAL SPECT MULTIPLE STUDIES Rhett Reece MD [address] [place] [address] Molecular & Functional Imaging [address] [place] [address] Referral ID Status Reason Start Date Expiration Date V isits Requested Visits Authorized [id number] Closed Auto-Generate d Referral 01/02/2022 02/01/2023 1 1 Reason Comments New Patient Shortness of Breath Specialty Diagnoses / Procedures Referred By Contac t Referred To Contact Pulmonary and Critical Care Medicine Diagnoses Asthma with chronic obstructive pulmonary disease (COPD) (HCC) Procedures CONSULT TO PULM/CRITICAL CARE OFFICE/OUTPATIENT NEW HIGH MDM 60-74 MINUTES Rhett Reece MD [address] [place] [address] Referral ID Status Reason Start Date Expiration Date Visits Requested Visits Authorized [id number] Pending Review PCP Requested Referral 11/21/2021 11/21/2022 1 1 Reason Onset Date Comments Immunizations 02/07/2022 Flu vaccination Reason Comments Established Patient Follow Up Diabetic Foot Care Reason Onset Date Comments Allied Health Visit 02/20/2022 Medication A dherence Outreach Reason Comments Established Patient 3 month follow up Reason Comments Urinary Problem Reason Comments 6 Month Exam Abdominal Pain Fall Reason Onset Date Comments Refill Request 08/16/2022 Reason Onset Date Comments Refill Request 09/05/2022 Reason Onset Date Comments Refill Request 09/14/2022 Reason Onset Date Comments Refill Request 09/16/2022 Reason Onset Date Comments Population Health Navigation Outreach 01/22/2023 [employer] care gaps Reason Onset Date Comments Refill Request 02/24/2023 Reason Onset Date Comments Refill Request 04/02/2023 Care Teams (unrecognized sec tion and content) Forming Fixer Relationship Specialty Start Date End Date Darius Black PA-C [address] [place], [place] [id number] PCP - General Family Practice 08/15/20 Forming Fixer Relationship Specialty Start Date End Date Darius Black PA-C [address] [place], [place] [id number] PCP - General Family Practice 08/15/20 Forming Fixer Relationship Specialty Start Date End Date Darius Black PA-C [address] [facility] [place] [address] PCP - General Family Practice 08/15/20 Forming Fixer Relationship Specialty Start Date End Date Darius Black PA-C [address] [facility] [place] [address] PCP - General Family Practice 08/15/20 Forming Fixer Relationship Specialty Start Date End Date Darius Black PA-C [address] [facility] [place] [address] PCP - General Family Practice 08/15/20 Forming Fixer Relationship Specialty Start Date End Date Darius Black PA-C [address] [facility] [place] [address] PCP - General Family Practice 08/15/20 Forming Fixer Relationship Specialty Start Date End Date Darius Black PA-C [address] [facility] [place] [address] PCP - General Family Practice 08/15/20 Forming Fixer Relationship Specialty Start Date End Date Darius Black PA-C [address] [facility] [place] [address] PCP - General Family Practice 08/15/20 Forming Fixer Relationship Specialty Start Date End Date Darius Black PA-C [address] [facility] [place] [address] PCP - General Family Practice 08/15/20 Forming Fixer Relationship Specialty Start Date End Date Darius Black PA-C [address] [facility] [place] [address] PCP - General Family Practice 08/15/20 Forming Fixer Relationship Specialty Start Date End Date Darius Black PA-C [address] [facility] [place] [address] PCP - General Family Practice 08/15/20 Forming Fixer Relationship Specialty Start Date End Date Darius Black PA-C [address] [facility] [place] [address] PCP - General Family Practice 08/15/20 Forming Fixer Relationship Specialty Start Date End Date Darius Black PA-C [address] [facility] [place] [address] PCP - General Family Practice 08/15/20 Forming Fixer Relationship Specialty Start Date End Date Darius Black PA-C [address] [facility] [place] [address] PCP - General Family Practice 08/15/20 Forming Fixer Relationship Specialty Start Date End Date Darius Black PA-C [address] [facility] [place] [address] PCP - General Family Practice 08/15/20 Forming Fixer Relationship Specialty Start Date End Date Darius Black PA-C [address] [facility] [place] [address] PCP - General Family Practice 08/15/20 Forming Fixer Relationship Specialty Start Date End Date Darius Black PA-C [address] [facility] [place] [address] PCP - General Family Practice 08/15/20 Forming Fixer Relationship Specialty Start Date End Date Darius Black PA-C [address] [facility] [place] [address] PCP - General Family Practice 08/15/20 Forming Fixer Relationship Specialty Start Date End Date Darius Black PA-C [address] [facility] [place] [address] PCP - General Family Practice 08/15/20 Forming Fixer Relationship Specialty Start Date End Date Darius Black PA-C [address] [facility] [place] [address] PCP - General Family Practice 08/15/20 Forming Fixer Relationship Specialty Start Date End Date Darius Black PA-C [address] [facility] [place] [address] PCP - General Family Practice 08/15/20 Forming Fixer Relationship Specialty Start Date End Date Darius Black PA-C [address] [facility] [place] [address] PCP - General Family Practice 08/15/20 Forming Fixer Relationship Specialty Start Date End Date Darius Black PA-C [address] [facility] [place] [address] PCP - General Family Practice 08/15/20 Forming Fixer Relationship Specialty Start Date End Date Darius lBack PA-C [address] [facility] [place] [address] PCP - General Family Medicine 08/15/20 Forming Fixer Relationship Specialty Start Date End Date Darius Black PA-C [address] [facility] [place] [address] PCP - General Family Medicine 08/15/20 Forming Fixer Relationship Specialty Start Date End Date Darius Black PA-C [address] [facility] [place] [address] PCP - General Family Medicine 08/15/20 Forming Fixer Relationship Specialty Start Date End Date Darius Black PA-C [address] [facility] [place] [address] PCP - General Family Medicine 08/15/20 Forming Fixer Relationship Specialty Start Date End Date Darius Black PA-C [address] [facility] [place] [address] PCP - General Family Medicine 08/15/20 Forming Fixer Relationship Specialty Start Date End Date Darius Black PA-C [address] [place] [address] PCP - General Family Medicine 08/15/20 Forming Fixer Relationship Specialty Start Date End Date Darius Black PA-C [address] [place] [address] PCP - General Family Medicine 08/15/20 Forming Fixer Relationship Specialty Start Date End Date Darius Black PA-C [address] [place] [address] PCP - General Family Medicine 08/15/20 Forming Fixer Relationship Specialty Start Date End Date Darius Black PA-C [address] [place] [address] PCP - General Family Medicine 08/15/20 Forming Fixer Relationship Specialty Start Date End Date Darius Black PA-C [address] [place] [address] PCP - General Family Medicine 08/15/20 Forming Fixer Relationship Specialty Start Date End Date Darius Black PA-C [address] [place] [address] PCP - General Family Medicine 08/15/20 Forming Fixer Relationship Specialty Start Date End Date Darius Black PA-C [address] [place] [address] PCP - General Family Medicine 08/15/20 Forming Fixer Relationship Specialty Start Date End Date Darius Black PA-C [address] [place] [address] PCP - General Family Medicine 08/15/20 Forming Fixer Relationship Specialty Start Date End Date Darius Black PA-C [address] [place], [place] [id number] PCP - [facility] 08/15/20 Forming Fixer Relationship Specialty Start Date End Date Darius Black PA-C [address] [place], [place] [id number] PCP - [facility] 08/15/20 Forming Fixer Relationship Specialty Start Date End Date Darius Black PA-C [address] [place], [place] [address] PCP - [facility] 08/15/20 INFORMATION SOURCE (unrecogn ized section and content) FOR RECORDS PERTAINING TO PATIENTS WHO ARE OR HAVE BEEN ENROLLED IN A CHEMICAL DEPENDENCY/SUBSTANCEABUSE PROGRAM, SOME INFORMATION MAY BE OMITTED. This clinical summary was aggregated from multiple sources. Caution should be exercised in using it in the provision of clinical care. This summary normalizes information from multiple sources, and as a consequence, information in this document may materially change the coding, format and clinical context of patient data. In addition, data may be omitted in some cases. CLINICAL DECISIONS SHOULD BE BASED ON THE PRIMARY CLINICAL RECORDS. [facility] [employer] [facility]. provides no warranty or guarantee of the accuracy or completeness of information in this document.
[2023-07-12] MEDS: 0.9% Normal Saline (1000mL) 1,000 ML 1000 ML IV (20:46)
[2023-07-12 20:56] LABS: Absolute Neutrophil Count 7.2 X10^3/uL (2.0-7.7); Basophil% 0.8 % (0-1); Eosinophil# 0.22 X10^3/uL; Eosinophils% 1.8 % (0-5); Hemoglobin 15.2 g/dL (12.0-15.0); Mean Corp Hgb Conc 34.5 g/dL (32-36); Mean Corpuscular Hgb 30.7 pg (27.0-32.0); Mean Corpuscular Volume 88.9 fL (81-99); Mean Platelet Vol. 12.2 fl (6.2-12.0); Monocyte# 1.07 X10^3/uL; Monocyte% 8.7 % (0-10); NRBC Flagged by Analyzer 0 % (0-5); Neutrophil # 7.19 X10^3/uL (2.7-7.7); Neutrophil % 58.1 % (47-70); Platelet Count 202 K/mm3 (150-450); RBC Distribution Width CV 14.2 % (11.6-14.6); RBC Distribution Width SD 45.9 fl (35.1-43.9); Red Blood Count 4.95 M/mm3 (4.2-5.4); White Blood Count 12.4 K/mm3 (4.4-11.0)
[2023-07-12 21:00] VITALS: BP 118/63; PULSE 67; RESP 14; O2SAT 96
--- NOTE | 2023-07-12 21:01 | RAD_ITS ---
STUDY: X-RAY CHEST REASON FOR EXAM: Female, 73 years old. cough TECHNIQUE: Single AP portable view of the chest. COMPARISON: None. FINDINGS: The lungs are clear and expanded. There is no demonstrated pleural abnormality. Normal size heart. Normal mediastinum and aquilino. Normal visualized pulmonary arteries. Normal visualized aortic arch and descending thoracic aorta. There is a dextroscoliosis of the thoracic spine. Normal visualized ribs, clavicles, and shoulders. There is no demonstrated abnormality of the visualized soft tissue structures of the upper abdomen. RAD/Chest 1 View (Portable) IMPRESSION: Normal x-ray examination of the chest. Electronically Signed: Alejandro Giordano MD at 21:56 EST ,
[2023-07-12 21:13] LABS: Anion Gap 8 (5-15); BUN 28 mg/dL (7-18); BUN/Creat Ratio 25.7 RATIO (10-20); Calcium,Total 9.5 mg/dL (8.5-10.1); Chloride 106 mmol/L (98-107); Creatinine, Serum 1.09 mg/dL (0.55-1.02); EST Glomerular Filtration Rate 52 mL/min (>60); Est Glom Filt Rate - Afr Amer 63 mL/min (>60); Estimated Creatinine Clearance 46.81 ml/min; Glucose 306 mg/dL (74-106); Potassium 3.6 mmol/L (3.5-5.1); Sodium Level 135 mmol/L (136-145)
[2023-07-12 21:56] LABS: Bacteria 0 SEEN /hpf (None Seen); Color, Urine Yellow (Yellow); Glucose, Dipstick 1000 mg/dl (Normal); Ketone-Dipstick Negative (Negative); Leukocyte Esterase-Dipstick Negative /ul (Negative); Mucous, Urine 0 SEEN /hpf (<or=2+); Nitrite-Dipstick Negative (Negative); Occult Blood-Urine Negative /ul (Negative); Protein-Dipstick Negative (Negative); Red Blood Cells-Urine 0 SEEN /hpf (0-5); Specific Gravity, Urine 1.015 (1.002-1.030); Squamous Epithelial Cells - UA 0 SEEN /hpf (5-10); Urine Bilirubin Dipstick Negative (Negative); Urine Clarity Clear (Clear); Urine Urobilinogen Normal (Normal); White Blood Cells 0 SEEN /hpf (0-5)
[2023-07-12 22:43] VITALS: BP 110/55; PULSE 67; RESP 18; TEMP 36.9; O2SAT 95
[2023-07-12] MEDS: metFORMIN HCl 500 MG Tablet PO (22:49)
== END 2023-07-12 22:49 | disposition home or self-care (01) ==
PROVIDERS: Emergency Provider Emergency Medicine; PCP Family Medicine; Visit Provider Emergency Medicine
DX: E11.65 Type 2 diabetes mellitus with hyperglycemia (principal); I10 Essential (primary) hypertension; R05.9 Cough, unspecified; Z11.52 Encounter for screening for COVID-19; E78.5 Hyperlipidemia, unspecified; E66.9 Obesity, unspecified; G47.33 Obstructive sleep apnea (adult) (pediatric); Z79.84 Long term (current) use of oral hypoglycemic drugs; Z79.899 Other long term (current) drug therapy
CPT/HCPCS: 71045; 80048; 81001; 85025; 87631; 96360; 99283; J7030; J7050; A4216

== ENCOUNTER → 2024-04-14 | Outpatient (CLI) | payer MEDICARE, SELFPAY ==
[2017-04-29 10:57] VITALS: BMI 37.4
[2024-04-19 09:22] LABS: Endomysial Antibody IgA Negative (Negative); Immunoglobulin A 167 mg/dL (64-422); t-Transglutaminase IgA <2 U/mL (0-3)
== END | disposition home or self-care (01) ==
LOC: MTLAB 16:20
PROVIDERS: PCP Family Medicine; Referring Provider Internal Medicine Gastroenterology; Visit Provider Internal Medicine Gastroenterology
DX: R19.7 Diarrhea, unspecified (principal)
CPT/HCPCS: 36415; 82784; 83516; 86140; 86255

== ENCOUNTER → 2024-05-07 | Outpatient (CLI) | payer MEDICARE, SELFPAY ==
[2017-04-29 10:57] VITALS: BMI 37.4
[2024-05-10 15:07] LABS: Calprotectin, Stool 179 ug/g (0-120)
== END | disposition home or self-care (01) ==
LOC: MTLAB 12:56
PROVIDERS: PCP Family Medicine; Referring Provider Internal Medicine Gastroenterology; Visit Provider Internal Medicine Gastroenterology
DX: R19.7 Diarrhea, unspecified (principal)
CPT/HCPCS: 83993

== ENCOUNTER → 2024-07-01 | Outpatient (CLI) | payer MEDICARE, SELFPAY ==
[2017-04-29 10:57] VITALS: BMI 37.4
[2024-07-05 08:07] LABS: Calprotectin, Stool 204 ug/g (0-120)
== END | disposition home or self-care (01) ==
PROVIDERS: PCP Family Medicine; Referring Provider Internal Medicine Gastroenterology; Visit Provider Internal Medicine Gastroenterology
DX: R19.7 Diarrhea, unspecified (principal)
CPT/HCPCS: 83993

== ENCOUNTER 2024-10-27 16:18 | Emergency (ER) | payer MEDICARE, SELFPAY ==
[2017-04-29 10:57] VITALS: BMI 37.4
[2024-10-27 16:18] VITALS: BP 136/84; PULSE 70; RESP 15; TEMP 36.6; O2SAT 98; BMI 32.2
[2024-10-27 17:56] LABS: Bedside Glucose 320 mg/dL (74-106)
[2024-10-27 18:18] VITALS: BP 136/55; PULSE 63; RESP 18; O2SAT 97
[2024-10-27 19:10] LABS: Bacteria 0 SEEN /hpf (None Seen); Mucous, Urine 0 SEEN /hpf (<or=2+); Squamous Epithelial Cells - UA 0 SEEN /hpf (5-10)
[2024-10-27 19:13] LABS: Absolute Neutrophil Count 6.6 X10^3/uL (2.0-7.7); Basophil# 0.09 X10^3/uL; Basophil% 0.9 % (0-1); Eosinophil# 0.18 X10^3/uL; Eosinophils% 1.8 % (0-5); Hematocrit 37.6 % (37-47); Hemoglobin 13.2 g/dL (12.0-15.0); Lymphocyte % 26.7 % (19-41); Mean Corp Hgb Conc 35.1 g/dL (32-36); Mean Corpuscular Hgb 30.1 pg (27.0-32.0); Mean Corpuscular Volume 85.8 fL (81-99); Mean Platelet Vol. 12.7 fl (6.2-12.0); Monocyte# 0.57 X10^3/uL; Monocyte% 5.6 % (0-10); NRBC Flagged by Analyzer 0 % (0-5); Neutrophil # 6.55 X10^3/uL (2.7-7.7); Neutrophil % 64.6 % (47-70); Platelet Count 175 K/mm3 (150-450); RBC Distribution Width CV 12.8 % (11.6-14.6); RBC Distribution Width SD 39.9 fl (35.1-43.9); Red Blood Count 4.38 M/mm3 (4.2-5.4); White Blood Count 10.1 K/mm3 (4.4-11.0)
[2024-10-27 19:25] LABS: Color, Urine Straw (Yellow); Glucose, Dipstick 1000 mg/dl (Normal); Ketone-Dipstick Negative (Negative); Leukocyte Esterase-Dipstick Negative /ul (Negative); Nitrite-Dipstick Negative (Negative); Occult Blood-Urine Negative /ul (Negative); Protein-Dipstick Negative (Negative); Specific Gravity, Urine 1.015 (1.002-1.030); Urine Bilirubin Dipstick Negative (Negative); Urine Clarity Clear (Clear); Urine Urobilinogen Normal (Normal)
[2024-10-27 19:55] LABS: Anion Gap 12 (5-15); BUN 24 mg/dL (4-19); BUN/Creat Ratio 27.8 RATIO (10-20); Calcium,Total 9.7 mg/dL (7.6-11.0); Carbon Dioxide 22.4 mmol/L (21.0-32.0); Chloride 102 mmol/L (98-108); Creatinine, Serum 0.85 mg/dL (0.70-1.20); EST Glomerular Filtration Rate 71 (>60); Estimated Creatinine Clearance 61.66 ml/min (50-250); Glucose 281 mg/dL (70-99); Potassium 4.1 mmol/L (3.3-5.1); Sodium Level 137 mmol/L (133-145)
[2024-10-27 20:00] VITALS: BP 140/61; PULSE 62; RESP 18; O2SAT 98
--- NOTE | 2024-10-27 20:12 | EX.ED.DYSGE1 ---
HPI History of Present Illness Chief Complaint: Hyperglycemia Informant: patient and spouse/S.O. Narrative Narrative: Patient is a 74-year-old female with history of hypertension, [id number] diabetes mellitus, GERD and hyperlipidemia as well as obstructive sleep apnea presenting for concern of elevated blood sugars. Patient states that she checks her blood sugar regularly and she is normally around 200 (sometimes less sometimes more). Over the past 1 to 2 weeks her blood sugar readings have been higher and closer to the 300s. She has been very anxious about it and finally had to come in to have this evaluated. She denies any recent medication changes. She notes that she was treated for urinary tract infection earlier this month but does not remember the exact date. She currently is not having any UTI symptoms. She does have chronic frequency but this is unchanged. She states she always drinks a lot of water but not had any acute change in that. She denies any associated chest pain, shortness of breath, nausea, vomiting or lightheadedness. Denies any abdominal pain. Denies any recent steroids. No fevers. No other complaints or concerns at this time. [facility] Medical History (Updated 10/27/24 @ 20:[address] Anu Bay, DO) Obstructive sleep apnea Essential (primary) hypertension Upper GI bleed Restrictive lung disease Skin cancer Aortic valve sclerosis Obesity Adjustment disorder with mixed anxiety and depressed mood Primary osteoarthritis of left knee Spinal stenosis of lumbar region Type 2 diabetes mellitus Sleep apnea Esophageal reflux Hemoptysis Inflammatory polyarthritis Insomnia Bacterial sinusitis Dyspnea on exertion Encounter for long-term current use of high risk medication Hyperlipidemia Abnormal findings on diagnostic imaging of heart and coronary circulation Pericardial effusion (noninflammatory) Nonrheumatic mitral valve insufficiency Non-rheumatic tricuspid valve insufficiency Acoustic neuroma Home Medications ?Medication ?Instructions ?Recorded ?Last Taken ?Type armodafinil 250 mg tablet 250 mg PO DAILY PRN sleepiness 09/09/17 Unknown History hydrochlorothiazide 25 mg tablet 25 mg PO DAILY 09/09/17 03/31/18 History diuretic/hypertension losartan 100 mg tablet 100 mg PO DAILY blood pressure 09/09/17 03/31/18 History trazodone 50 mg tablet 50 mg PO QHS sleep 09/09/17 03/30/18 History atenolol 50 mg tablet 75 mg PO BID blood pressure 12/14/19 Unknown History fluoxetine 20 mg capsule 40 mg PO DAILY mental health 12/14/19 Unknown History gabapentin 100 mg capsule 200 mg PO QHS nerve pain 12/14/19 Unknown History metformin 500 mg tablet 1,000 mg PO BID diabetes 12/14/19 Unknown History pantoprazole 40 mg tablet,delayed 40 mg PO BID 12/14/19 Unknown History release spironolactone 25 mg tablet 25 mg PO DAILY 12/14/19 Unknown History metformin 500 mg tablet 500 mg PO BID #60 tabs 07/12/23 Unknown Rx Allergy/AdvReac Type Severity Reaction Status Date / Time amlodipine AdvReac Severe Unknown Verified 10/27/24 16:22 nickel AdvReac Severe Unknown Verified 10/27/24 16:22 lisinopril AdvReac Mild Other - Verified 10/27/24 16:22 cough Family History Brother CAD (coronary artery disease) Cancer Mother CVA (cerebral vascular accident) Father Alzheimers disease Grandmother Cancer Diabetes Surgical History history of eye implant H/O brain surgery H/O foot surgery Social History household members: none housing: house current occupational status: employed current occupation: [employer] pets and animals: Yes pets and animals: dog(s) Smoking Status: Former smoker quit date: 05/05/98 pack-years: 35 how long ago did patient quit smokin second hand exposure: Yes alcohol intake: never substance use type: does not use caffeine: Yes Type: coffee Number of servings: 2 what type of physical activity do you participate in: none ROS ROS ED Constitutional Constitutional ED: Denies chills or fever(s) Eyes Eyes: Denies change in vision Cardiovascular Cardiovascular: Denies chest pain Respiratory/Chest Respiratory/Chest: Denies dyspnea Gastrointestinal Gastrointestinal: Denies abdominal pain, nausea or vomiting Genitourinary Genitourinary ED: Reports urinary frequency; Denies dysuria or hematuria Musculoskeletal Musculoskeletal: Denies arthralgias or myalgias Neurologic Neurologic: Denies weakness Psychiatric Psychiatric: Reports anxiety EXAM Physical Exam Const Vital Signs: 10/27/24 16:18 10/27/24 18:18 10/27/24 18:59 Temperature 97.8 F Temperature Source Oral Pulse Rate 70 63 Respiratory Rate 15 18 Respiratory Effort Normal Respiratory Pattern Normal Blood Pressure 136/84 H 136/55 H Blood Pressure Mean 101 82 Pulse Ox 98 97 Oxygen Delivery Method Room Air Room Air 10/27/24 20:00 10/27/24 20:34 Temperature 98.2 F Temperature Source Pulse Rate 62 56 L Respiratory Rate 18 18 Respiratory Effort Respiratory Pattern Blood Pressure 140/61 H 148/69 H Blood Pressure Mean 87 95 Pulse Ox 98 95 Oxygen Delivery Method Room Air Positive well nourished and well developed General Appearance ED: well developed and NAD HEENT Reports moist mucous membranes Eyes EOMs intact bilaterally Chest Wall inspection of chest normal and palpation of chest normal Resp normal respiratory effort and clear to auscultation bilaterally Cardio regular rate and regular rhythm GI normal to inspection, nondistended, normoactive bowel sounds and non-tender Palpation: soft; Negative for tender Extremity normal to inspection Neuro oriented x3 Sensorium / Orientation: alert Motor Exam: Negative for general weakness Psych mental status grossly normal Skin no rashes or lesions noted MDM MDM MDM Narrative Medical decision making narrative: Patient evaluated for concern of elevated blood sugar readings. Differential includes diabetic hyperglycemia, DKA, HH NK, SUSAN and other electrolyte disturbance as well as secondary infection. Patient overall is well-appearing with normal vital signs. CBC is normal. BMP does show an elevation of her glucose at 281 however she has normal anion gap and normal bicarb. Urinalysis is not consistent with infection but does show 1000 and urine glucose which is chronic for the patient. Her specific gravity is normal and she clinically does not appear dehydrated. Do not think she requires IV fluids. Is given a dose of 2 units of subcu insulin in the emergency room. At this time I do not think she requires admission or further emergent workup for her hyperglycemia but she is encouraged to continue to keep track of her blood sugars and follow-up with her primary care doctor she might require medication adjustments. Given return precautions. Discharged home in stable condition. Lab Data Attestation: I reviewed the patient's lab results. Labs: Laboratory Results - last 24 hr 10/27/24 10/27/24 10/27/24 17:38 18:54 20:44 WBC 10.1 RBC 4.38 Hgb 13.2 Hct 37.6 MCV 85.8 MCH 30.1 MCHC 35.1 RDW Std Deviation 39.9 RDW Coeff of Graciela 12.8 Plt Count 175 MPV 12.7 H Immature Gran % (Auto) 0.400 Neut % (Auto) 64.6 Lymph % (Auto) 26.7 [place] % (Auto) 5.6 Eos % (Auto) 1.8 Baso % (Auto) 0.9 Absolute Neuts (auto) 6.6 Absolute Lymphs (auto) 2.70 Nucleated RBC % 0 Sodium 137 Potassium 4.1 Chloride 102 Carbon Dioxide 22.4 Anion Gap 12 BUN 24 H Creatinine 0.85 Estim Creat Clear Calc 61.66 Est GFR (MDRD) Non-Af 71 BUN/Creatinine Ratio 27.8 H Glucose 281 H Calcium 9.7 Urine Color Straw Urine Clarity Clear Urine pH 6.0 Ur Specific [place] 1.015 Urine Protein Negative Urine Glucose (UA) 1000 H Urine Ketones Negative Urine Occult Blood Negative Urine Nitrite Negative Urine Bilirubin Negative Urine Urobilinogen Normal Ur Leukocyte Esterase Negative Urine RBC 0-5 SEEN Urine WBC 0-5 SEEN Ur Squamous Epith Cells 0 SEEN Urine Bacteria 0 SEEN Urine Mucus 0 SEEN POC Glucose 320 H 196 H Discharge Plan Triage Chief Complaint: Hyperglycemia ED Provider: Anu Bay Dx/Rx/DC Orders Clinical Impression: Hyperglycemia due to diabetes mellitus Instructions: ED Diabetic Hyperglycemia Prescriptions: No Action hydrochlorothiazide 25 mg tablet 25 mg PO DAILY losartan 100 mg tablet 100 mg PO DAILY armodafinil 250 mg tablet 250 mg PO DAILY PRN (Reason: sleepiness) trazodone 50 mg tablet 50 mg PO QHS fluoxetine 20 mg capsule 40 mg PO DAILY atenolol 50 mg tablet 75 mg PO BID gabapentin 100 mg capsule 200 mg PO QHS metformin 500 mg tablet 1,000 mg PO BID pantoprazole 40 mg tablet,delayed release (DR/EC) 40 mg PO BID spironolactone 25 mg tablet 25 mg PO DAILY Patient Comments: TAKE 1 TABLET BY MOUTH EVERY DAY metformin 500 mg tablet 500 mg PO BID Qty: 60 0RF Primary Care Provider: Rhett Reece Referrals: Rhett Reece MD [Primary Care Provider] - Activity Restrictions/Additional Instructions: Your blood sugar was elevated today at 281 however the remainder of your labs were largely normal and not consistently type of diabetic crisis. You were given a small amount of insulin to help with this. Please try to adhere to a low carbohydrate, low sugar diet and follow-up with your primary care doctor for possible medication adjustments for your diabetes. At this time you also do not have any obvious signs of infection and I feel that you are safe to go home and follow-up with your family doctor. Print Language: Danish Disposition Disposition: Home, Self Care Discharge Date/Time: 10/27/24 20:50
[2024-10-27 20:17] LABS: Red Blood Cells-Urine 0-5 SEEN /hpf (0-5); White Blood Cells 0-5 SEEN /hpf (0-5)
[2024-10-27 20:34] VITALS: BP 148/69; PULSE 56; RESP 18; TEMP 36.8; O2SAT 95
[2024-10-27] MEDS: Insulin Lispro 100 UNIT/ML INSULN.PEN SC (20:44)
[2024-10-27 21:06] LABS: Bedside Glucose 196 mg/dL (74-106)
== END 2024-10-27 20:50 | disposition home or self-care (01) ==
PROVIDERS: Emergency Provider Emergency Medicine; PCP Family Medicine; Visit Provider Emergency Medicine
DX: E11.65 Type 2 diabetes mellitus with hyperglycemia (principal); I10 Essential (primary) hypertension; R35.0 Frequency of micturition; E78.5 Hyperlipidemia, unspecified; G47.33 Obstructive sleep apnea (adult) (pediatric); K21.9 Gastro-esophageal reflux disease without esophagitis; Z79.84 Long term (current) use of oral hypoglycemic drugs; Z79.899 Other long term (current) drug therapy; Z87.891 Personal history of nicotine dependence
CPT/HCPCS: 80048; 81001; 82962; 85025; 99282; A4216